=== PATIENT | male | born 1935 | race Caucasian/White ===

== ENCOUNTER 2018-09-24 08:48 | Day surgery (SDC) | payer OTHER ==
[2018-09-24] MEDS ORDERED: LIDOCAINE 2% MPF 5 ML VIAL ONE ×2 (09:36→10:58)
[2018-09-24] MEDS ORDERED: TETRACAINE HCL 0.5% 2ML OPTH ONE (09:37)
[2018-09-24] MEDS ORDERED: NA CHLORIDE 0.9% 500 ML ONE (09:37)
[2018-09-24] MEDS: CYCLOPENTOLATE 1% OPTH 2 ML ONE ×3 (09:50→10:00)
[2018-09-24] MEDS: PHENYLEPHRINE 10% OPTH 5ML ONE ×3 (09:50→10:00)
[2018-09-24] MEDS ORDERED: NS 0.9% VIAL 10 ML ONE (10:09)
[2018-09-24] MEDS: DUOVISC 1 KIT OPTH ONE ×2 (10:27→11:00)
[2018-09-24] MEDS: MOXIFLOXACIN HCL 10 DROPS/ML **OR USE OPTH ONE ×2 (10:27→11:00)
[2018-09-24] MEDS: EPINEPHRINE/PF 1 MG/ML AMP ONE ×2 (10:27→11:00)
[2018-09-24] MEDS: BALANCED SALT IRRIG PLAIN 500 ML BTL IRR ONE ×2 (10:27→11:00)
[2018-09-24] MEDS ORDERED: PROPOFOL 200 MG/20 ML VIAL IV ONE (10:58)
[2018-09-24] MEDS ORDERED: EPINEPHRINE/PF 1 MG/ML AMP ONE (11:21)
--- NOTE | 2018-09-24 11:37 | P.BOP ---
Preoperative diagnosis: Nuclear sclerotic and posterior subcapsular cataract OS Postoperative diagnosis: Same Primary procedure: Phacoemulsification with IOL OS Estimated blood loss: None Anesthesia: Local (Subtenon's infusion with anesthesia for cataract surgery) Complications: None Implants: SN60WF +18.0 Transferred to: Other (Day surgery) Condition: Good
[2018-09-24 14:43] VITALS: BP 148/87; TEMP 98.3; O2SAT 96
--- NOTE | 2018-09-24 22:29 | OP ---
Date of Procedure: 09/24/2018 Surgeon: Martita Harris MD Anesthesiologist: Geovani HilliardNNahid and Shelby Tanner C.R.N.A. Preoperative Diagnosis: Nuclear sclerotic and posterior subcapsular cataract, OS (left eye). Operation Performed: Phacoemulsification with intraocular lens implant, left eye. Anesthesia: Per cataract surgery. Complications: None. Description Of Procedure: In day surgery, the patient was prepped with Betadine and draped. A conjunctival incision was made in the inferior nasal quadrant with Favian scissors. A sub-Tenon block consisting of a 1:1 mixture of 2% Xylocaine and 0.25% bupivacaine was placed through the conjunctival incision with a blunt cannula. A Honan balloon was placed over the eye and the patient was transferred to the operating room. In the operating room, the patient was prepped and draped in the usual sterile fashion for ophthalmic surgery. A lid speculum was placed in the OS. Two paracentesis sites were made superiorly and inferiorly in the limbal cornea. Viscoat was placed in the anterior chamber and a crescent blade was used to make a corneal groove and tunnel, and a keratome was used to enter the anterior chamber. Provisc was placed in the anterior chamber and a 360-degree capsulotomy was performed with a cystitome. The lens was hydrodissected with BSS and rotated freely. The lens was removed with a stop and chop technique. A 16.03 phaco CDE was used to remove the lens. Residual cortex was removed with the irrigation and aspiration. Provisc was placed in the capsular bag. A SN60WF +18.0 lens was placed in the capsular bag without complications. Irrigation and aspiration were used to remove residual viscoelastic. The paracentesis sites were hydrated with BSS. The wound and paracentesis sites were inspected and found to be watertight. Vigamox 0.07 cc was placed intracamerally at the end of the procedure. The eye was irrigated with balanced salt solution. The eye was patched with a soft cotton patch and Jefferson metal shield. The patient was returned to day surgery in good condition. Comments: A 1:5000 epinephrine was placed in the eye prior to Viscoat. Extra Viscoat was used. Discharge Instructions: Mr. Duong is discharged to home in good condition and is to follow up with Dr. Harris in the morning. TERESA/TEODORA Voice ID: [id number] Report ID: [id number] LYDIA
== END 2018-09-24 12:10 | disposition home or self-care (01) ==
LOC: OR 08:48
PROVIDERS: ATTEND Ophthalmology Retina Specialist
PROC: 08RK3JZ Replacement of Left Lens with Synthetic Substitute, Percutaneous Approach (ICD-10-PCS; principal; 2018-09-24 10:15)
DX: H25.12 Age-related nuclear cataract, left eye (principal); H25.042 Posterior subcapsular polar age-related cataract, left eye; J44.9 Chronic obstructive pulmonary disease, unspecified; I10 Essential (primary) hypertension; E07.9 Disorder of thyroid, unspecified; Z79.82 Long term (current) use of aspirin; Z79.51 Long term (current) use of inhaled steroids; Z79.899 Other long term (current) drug therapy; Z87.891 Personal history of nicotine dependence; Z85.46 Personal history of malignant neoplasm of prostate
CPT/HCPCS: 36415; 66984; 84132; J0171 ×2; J2704; V2630

== ENCOUNTER 2022-06-05 10:37 | Emergency (ER) | payer OTHER ==
--- OUTSIDE RECORDS SUMMARY | 2022-06-05 10:44 | XMS REPORT | Continuity of Care Document ---
:1935 Author Organization [facility] t Address [address] [place] [address] Care Team Providers Name Role Phone Suzanne Gardiner MD Primary Care Physician Nurse, Adc Pob Immunization Attending Clinician Unavailable Kelby Freed DO Attending Clinician Payers Payer Name Policy Type Policy Number Effective Date Expiration Date Stevie vasquez AETSHEREEN MANAGED [id number] 2020 MEDICARE PPO-ENOC 00:00:00 Problems Condition Condition Condition Status Onset Resolution Last Treating Co mments Source Name Details Category Date Date Treatment Clinician Date Essential Essential Disease Active Uni vers hypertensi hypertensi 3-05 it y of on, benign [place] [facility] Hypothyroi Hypothyroi Disease Active Overview : Univers dism dism 3-05 Formattin ity of 00:00: g of note Medical might be Branch different from the original. 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 3-05 ity of 00:00: [place] 00 [facility] Allergies, Adverse Reactions, Alerts Allergy Allergy Status Severity Reaction(s) Onset Inactive Treating Comm ents Source Name Type Date Date Clinician Iodine Propensi Active Hives Univers ty to 3-05 ity of adverse 00:00: [place] reaction 00 Medical s Branch IODINE DRUG Active Hives Univers INGREDI 3-05 ity of 00:00: [place] 00 [facility] Social History Social Habit Start Date Stop Date Quantity Comments Source Alcohol intake 2014-12-23 2014-12-23 Current drinker Unive rsity of 00:00:00 00:00:00 of alcohol [place] [facility] (finding) [facility] History of 2008-12-23 Smoker University of tobacco use 00:00:00 [facility] Sex Assigned At [birth year] Universit y of 00:00:00 00:00:00 [facility] Smoking Status Start Date Stop Date Source Former smoker [facility] [place] [facility] Medications Ordered Filled Start Stop Current Ordering Indication Dosage Frequency Signature Comments Components Source Medication Medication Date Date Medication? Clinician (SIG) Name Name aspirin 81 Yes 81mg Take 81 mg U nivers mg chewable 3-22 by mouth ity of tablet 13:44: daily. [address] Branch vitamin Yes 1000ug Take 1,000 Un mariama B-12 3-22 mcg by ity of (VITAMIN 13:44: mouth [place] B-12) 1,000 33 daily. Medica l mcg tablet Branch cholecalcif Yes 1000U Take 1,000 Univers marylin, 3-22 Units by ity of vitamin D3, 13:44: mouth [place] (VITAMIN 33 daily. Medical D3) 1,000 Branch unit tablet LACTOBACILL Yes Take by Uni vers US 3-22 mouth ity of RHAMNOSUS 13:44: daily. [place] GG 33 Medical (CULTURELLE Branch ORAL) atorvastati Yes 10mg Take 10 mg Univers n (LIPITOR) 3-22 by mouth ity of 10 mg 13:44: daily. [place] tablet Medical Branch ERGOCALCIFE Yes 1000U Take 1,000 Univers ROL, 3-22 Units by ity of VITAMIN D2, 13:44: mouth. [facility] s (VITAMIN D 33 Medical ORAL) Branch tamsulosin Yes [id number] .4mg Take 1 Cap Univers (FLOMAX) 3-22 by mouth ity of 0.4 mg 24 00:00: daily. [place] hr capsule 00 Medical Branch levothyroxi Yes [id number] 88ug Take 1 Tab Univers ne 3-22 by mouth ity of (SYNTHROID) 00:00: every [place] 88 mcg 00 morning. Medical tablet Branch metoprolol Yes [id number] 25mg Take 1 Tab Univers succinate 1-21 by mouth ity of XL (TOPROL 00:00: daily. [place] XL) 25 mg 00 Medical 24 hr Branch tablet cyclobenzap Yes [id number] 5mg Take 1 Tab Univers rine 1-21 by mouth 3 ity of (FLEXERIL) 00:00: (three) [place] 5 mg tablet 00 times Medical daily as Branch needed for Muscle Spasms. ibuprofen Yes 600mg Take 1 Tab U nivers (MOTRIN) 1-13 by mouth ity of 600 mg 00:00: every 8 [place] tablet 00 (eight) Medical hours as Branch needed for Pain (scale 4-6) or Pain unrelieved by Tylenol. Immunizations Ordered Filled Immunization Date Status Comments Sourc e Immunization Name Name SARS-COV-2 COVID-19 2021-07-14 Completed Unive rsity of PFIZER VACCINE 00:00:00 [facility] SARS-COV-2 COVID-19 2020-12-29 Completed Unive rsity of PFIZER VACCINE 00:00:00 [facility] SARS-COV-2 COVID-19 2020-12-08 Completed Unive rsity of PFIZER VACCINE 00:00:00 [facility] Procedures Procedure Date / Time Performed Performing Clinician Sourc e SARS-COV-2 COVID-19 2021-07-14 18:56:33 Doctor Unassigned, No Un iversity of [place] VACCINE,0.3ML,IM Name Medical Branch (PFIZER) Encounters Start End Encounter Admission Attending Care Care Encounter Source Date/Time Date/Time Type Type Clinicians Facility Department ID 2021-11-18 Outpatient [facility] MARY ALICE [id number] 17:57:54 Andtravis ayoub 2021-07-14 2021-07-[address] [facility] [id number] Univers 13:30:00 13:30:00 ity of [facility] 2021-07-14 2021-07-14 Imm/Inj Nurse, Adc Pob Immunization [facility] [id number] [facility] 13:18:54 13:28:54 Visit Kelby Freed [id number] ity [place] [id number] Wojciech chilel Professio [phone] Ar dical nal [address] Branch Building Results This patient has no known results.
[2022-06-05] MEDS ORDERED: LIDOCAINE 4% PATCH ONE (11:29)
[2022-06-05] MEDS ORDERED: ASPIRIN 81 MG CHEWABLE TABLET ONE (11:29)
[2022-06-05] MEDS ORDERED: MORPHINE 2 MG/ML SYR ONE (11:29)
[2022-06-05 12:07] LABS: Albumin 3.3 g/dL (3.4-5.0); Bilirubin Direct 0.3 mg/dL (0-0.2); Bilirubin Total 0.9 mg/dL (0.2-1.0); Magnesium 2.2 mg/dL (1.8-2.4); Potassium 4.3 mmol/L (3.5-5.1); Protein, Total 6.8 g/dL (6.4-8.2)
[2022-06-05 12:08] LABS: Absolute Lymphocytes (CBC) 1.2 K/uL (0.7-4.9); Hematocrit 40.5 % (39.6-49.0); Lymphocytes % 12.5 % (15.3-44.8); MPV 7.7 fL (7.6-11.3); RBC Red Blood Cell Count 3.89 M/uL (4.33-5.43)
--- NOTE | 2022-06-05 12:52 | RAD REPORT ---
EXAM DESCRIPTION: RAD - Chest Single View - 06/05/2022 11:54 am CLINICAL HISTORY: CHEST PAIN COMPARISON: Two view chest December 2016 TECHNIQUE: AP portable chest image was obtained 06/05/2022 11:54 am . FINDINGS: Lung volumes are low. No peripheral mass or consolidation. Interstitial pattern is accentu ated by under penetrated portable technique and shallow inspiration. Significant failure or volume ov erload are not suspected. Trachea is midline. Right hemidiaphragm elevation and eventration noted. Heart and vasculature are no rmal. No measurable pleural effusion and no pneumothorax. No acute bony abnormality seen. No acute ao rtic findings suspected. IMPRESSION: Limited portable study without acute cardiopulmonary process.
[2022-06-05] MEDS ORDERED: METHOCARBAMOL 1,000 MG/10 ML VIAL IV ONE (13:38)
[2022-06-05] MEDS ORDERED: NA CHLORIDE 0.9% 100 ML ONE (13:38)
--- NOTE | 2022-06-05 15:18 | ER ---
Nurse's Notes [facility] Name: Salazar Duong Age: 86 yrs Sex: Male : 1935 Arrival Date: 06/05/2022 Time: 10:39 Bed 13 Private MD: Ilya Renee T Diagnosis: Chest wall pain Presentation: 06/05 10:47 Chief complaint: Pt's daughter states "he was trying to open a six pack of water trying aa5 to rip open that plastic off and then the bottles started falling and he did another movement to try to catch them and right after that he started having chest pain". Pt states "the chest pain has been getting worse and that incident happened on Monday". Coronavirus screen: At this time, the client does not indicate any symptoms associated with coronavirus-19. Ebola Screen: No symptoms or risks identified at this time. Initial Sepsis Screen: Does the patient meet any 2 criteria? No. Patient's initial sepsis screen is negative. Does the patient have a suspected source of infection? No. Patient's initial sepsis screen is negative. Risk Assessment: Do you want to hurt yourself or someone else? Patient reports no desire to harm self or others. Onset of symptoms was May 2022. 10:47 Acuity: ERMELINDA 3 aa5 10:47 Method Of Arrival: Ambulatory aa5 Triage Assessment: 13:12 General: Appears in no apparent distress. uncomfortable, well groomed, Behavior is bm7 anxious. Pain: Complains of pain in mid-sternal area Pain radiates to back. EENT: No deficits noted. No signs and/or symptoms were reported regarding the EENT system. Neuro: No deficits noted. Cardiovascular: Reports chest pain, shortness of breath, Chest pain is described as mild, radiates back. Respiratory: Reports shortness of breath at rest on exertion Airway is patent Respiratory effort is even, using tripod position, Respiratory pattern is tachypnea Breath sounds are clear bilaterally. GI: No deficits noted. No signs and/or symptoms were reported involving the gastrointestinal system. : No deficits noted. No signs and/or symptoms were reported regarding the genitourinary system. Derm: No deficits noted. No signs and/or symptoms reported regarding the dermatologic system. Musculoskeletal: No deficits noted. No signs and/or symptoms reported regarding the musculoskeletal system. Historical: - Allergies: 10:47 IV contrast (Hives); aa5 10:50 tramadol; aa5 - PMHx: 10:47 BPH; Hypertension; Hypothyroidism; Prostate Cancer; aa5 10:50 COPD; aa5 10:50 Osteoporosis; aa5 - Immunization history:: Adult Immunizations unknown. - Social history:: Smoking status: Patient denies any tobacco usage or history of. Screenin:17 Abuse screen: Denies threats or abuse. Nutritional screening: No deficits noted. bm7 Tuberculosis screening: No symptoms or risk factors identified. Fall Risk None identified. Assessment: 12:17 Reassessment: Patient and/or family updated on plan of care and expected duration. Pain bm7 level reassessed. Patient is alert, oriented x 3, equal unlabored respirations, skin warm/dry/pink. 14:01 Reassessment: Patient and/or family updated on plan of care and expected duration. Pain bm7 level reassessed. Patient is alert, oriented x 3, equal unlabored respirations, skin warm/dry/pink. 14:59 Reassessment: Patient and/or family updated on plan of care and expected duration. Pain bm7 level reassessed. Patient is alert, oriented x 3, equal unlabored respirations, skin warm/dry/pink. Vital Signs: 10:47 BP 163 / 102; Pulse 65; Resp 20 S; Temp 98.1(TE); Pulse Ox 95% on R/A; Weight 68.04 kg aa5 (R); Height 5 ft. 6 in. (167.64 cm) (R); 11:35 BP 152 / 83 RA Sitting (auto/pedi); Pulse 64; Resp 28; Pulse Ox 99% on R/A; Pain 5/10; bm7 11:35 BP 157 / 78 LA Sitting (auto/pedi); Pulse 64 LA; bm7 12:18 BP 161 / 77; Pulse 66; Resp 20; Pulse Ox 97% on R/A; Pain 3/10; bm7 12:43 BP 162 / 81; Pulse 65; Resp 20; Pulse Ox 97% ; jl7 13:20 BP 157 / 81; Pulse 60; Resp 20; Pulse Ox 97% on R/A; bm7 14:22 BP 160 / 76; Pulse 60; Resp 18; Pulse Ox 99% on R/A; Pain 4/10; bm7 15:44 BP 169 / 80; Pulse 16; Resp 22; Temp 98.2(TE); Pulse Ox 98% on R/A; Pain 2/10; bm7 10:47 Body Mass Index 24.21 (68.04 kg, 167.64 cm) aa5 ED Course: 10:39 Patient arrived in ED. as 10:41 Ilya Renee MD is Private Physician. as 10:43 Tierra Elder MD is Attending Physician. sd2 10:47 Arm band placed on. aa5 10:49 Triage completed. aa5 11:12 Daisy Colmenares, RN is Primary Nurse. bm7 11:32 Initial lab(s) drawn, by me, sent to lab. Inserted saline lock: 22 gauge in right aa5 forearm, using aseptic technique. Blood collected. 11:56 XRAY Chest (1 view) In Process Unspecified. EDMS 12:17 No apparent distress. Resting quietly. Awaiting lab results. bm7 12:17 Patient has correct armband on for positive identification. Placed in gown. Bed in low bm7 position. Call light in reach. Side rails up X2. Adult w/ patient. Client placed on continuous cardiac and pulse oximetry monitoring. NIBP monitoring applied. clinical research monitor on. Warm blanket given. 12:17 Missed attempt(s): 22 gauge in right antecubital area. Bleeding controlled, band aid bm7 applied, catheter tip intact. 14:11 Assisted to bathroom. bm7 14:22 Repeat lab(s) drawn. by me, sent to lab. X-ray(s) taken. bm7 15:16 Ilya Renee MD is Referral Physician. sd2 15:44 No provider procedures requiring assistance completed. IV discontinued, intact, bm7 bleeding controlled, No redness/swelling at site. Pressure dressing applied. Administered Medications: 11:34 Drug: Aspirin Chewable Tablet 243 mg Route: PO; bm7 13:14 Follow up: Response: No adverse reaction bm7 11:34 Drug: morphine 2 mg Route: IVP; Infused Over: 4 mins; Site: right wrist; bm7 13:14 Follow up: Response: Pain is decreased bm7 13:37 Drug: Methocarbamol 500 mg Route: IVPB; Infused Over: 30 mins; Site: right antecubital; bm7 14:11 Follow up: IV Status: Completed infusion bm7 14:11 Drug: Lidoderm Patch 5 % (700 mg/patch) 1 patches {Note: upper back .} Route: Topical; bm7 Site: affected area; Medication: 12:17 VIS not applicable for this client. bm7 Outcome: 15:16 Discharge ordered by . sd2 15:44 Discharged to home ambulatory, with family. bm7 15:44 Condition: improved 15:44 Discharge instructions given to patient, family, Instructed on discharge instructions, follow up and referral plans. medication usage, Demonstrated understanding of instructions, follow-up care, medications, Prescriptions given X 2. 15:47 Patient left the ED. bm7 Signatures: Dispatcher [employer] EDMS Zahraa Francisco Audri, RN RN aa5 Silvestre Stahl RN RN [id number] Daisy Colmenares, AMNA RN bm7 Tierra Elder MD MD sd2
--- NOTE | 2022-06-05 15:18 | EDPHYS ---
Physician Documentation [facility] Name: Salazar Duong Age: 86 yrs Sex: Male : 1935 Arrival Date: 06/05/2022 Time: 10:39 Bed 13 Private MD: Ilya Renee T ED Physician Tierra Elder HPI: 06/05 10:58 This 86 yrs old Male presents to ER via Ambulatory with complaints of sternum pain, sd2 InQuicker 1030. 10:58 86-year-old male with a history of COPD and atrial fibrillation presents with chief sd2 complaint of chest wall pain that started on Monday. He reports that he was attempting to open a plastic on a beverage container and then it started to fall so he reached down to try to grab it and he immediately started having chest pain thereafter. He reports it has continued and progressively worsened since then. He reports it is painful with movement and especially when he is trying to push himself up to stand up. He has not taken any medications for this at home to help with the symptoms. He is on a daily baby aspirin which he is already taken today. He denies any prior cardiac history aside from his atrial fibrillation which has been well controlled. He denies any associated shortness of breath worse than his normal baseline COPD. He denies any nausea, vomiting or diaphoresis. No recent travel or leg edema.. Historical: - Allergies: 10:47 IV contrast (Hives); aa5 10:50 tramadol; aa5 - PMHx: 10:47 BPH; Hypertension; Hypothyroidism; Prostate Cancer; aa5 10:50 COPD; aa5 10:50 Osteoporosis; aa5 - Immunization history:: Adult Immunizations unknown. - Social history:: Smoking status: Patient denies any tobacco usage or history of. ROS: 10:58 Constitutional: Negative for fever, chills, and weight loss, Eyes: Negative for injury, sd2 pain, redness, and discharge, Respiratory: Negative for shortness of breath, cough, wheezing. Abdomen/GI: Negative for abdominal pain, nausea, vomiting, diarrhea. MS/Extremity: Negative for injury and deformity, Skin: Negative for injury, rash, and discoloration, Neuro: Negative for headache, numbness and tingling. 10:58 Cardiovascular: Positive for chest pain, Negative for edema, orthopnea, palpitations. Exam: 10:58 Constitutional: This is a well developed, well nourished patient who is awake, alert, sd2 and in no acute distress. Head/Face: Normocephalic, atraumatic. Eyes: EOMI, normal conjunctiva bilaterally Chest/axilla: Normal chest wall appearance and motion. Nontender with no deformity. Cardiovascular: Regular rate and rhythm with a normal S1 and S2. No gallops, murmurs, or rubs. 2+ distal pulses. Reproducible midsternal and R anterior chest wall TTP without crepitus. Respiratory: Lungs have equal breath sounds bilaterally, clear to auscultation and percussion. No rales, rhonchi or wheezes noted. No increased work of breathing, no retractions or nasal flaring. Abdomen/GI: Soft, non-tender, with normal bowel sounds. No guarding or rebound. No evidence of tenderness throughout. Skin: Warm, dry with normal turgor. Normal color with no rashes, no lesions, and no evidence of cellulitis. MS/ Extremity: Pulses equal, no cyanosis. Neurovascular intact. Full, normal range of motion. Ambulatory without difficulty. Psych: Awake, alert, with orientation to person, place and time. Behavior, mood, and affect are within normal limits. 11:31 ECG was reviewed by the Attending Physician. NSR, rate 63, no STEMI criteria, no ST-T sd2 wave changes, PRWP Vital Signs: 10:47 BP 163 / 102; Pulse 65; Resp 20 S; Temp 98.1(TE); Pulse Ox 95% on R/A; Weight 68.04 kg aa5 (R); Height 5 ft. 6 in. (167.64 cm) (R); 11:35 BP 152 / 83 RA Sitting (auto/pedi); Pulse 64; Resp 28; Pulse Ox 99% on R/A; Pain 5/10; bm7 11:35 BP 157 / 78 LA Sitting (auto/pedi); Pulse 64 LA; bm7 12:18 BP 161 / 77; Pulse 66; Resp 20; Pulse Ox 97% on R/A; Pain 3/10; bm7 12:43 BP 162 / 81; Pulse 65; Resp 20; Pulse Ox 97% ; jl7 13:20 BP 157 / 81; Pulse 60; Resp 20; Pulse Ox 97% on R/A; bm7 14:22 BP 160 / 76; Pulse 60; Resp 18; Pulse Ox 99% on R/A; Pain 4/10; bm7 15:44 BP 169 / 80; Pulse 16; Resp 22; Temp 98.2(TE); Pulse Ox 98% on R/A; Pain 2/10; bm7 10:47 Body Mass Index 24.21 (68.04 kg, 167.64 cm) aa5 MDM: 10:51 Patient medically screened. sd2 10:58 Differential Diagnosis Differential diagnosis includes but is not limited to: ACS, sd2 DVT/PE, pneumothorax, dissection, musculoskeletal, anxiety, anemia, electrolyte abnormality, pneumonia, CHF, COPD among others. Data reviewed: vital signs, nurses notes. 15:14 Data reviewed: lab test result(s), EKG, radiologic studies. Counseling: I had a sd2 detailed discussion with the patient and/or guardian regarding: the historical points, exam findings, and any diagnostic results supporting the discharge/admit diagnosis, lab results, radiology results, the need for outpatient follow up, to return to the emergency department if symptoms worsen or persist or if there are any questions or concerns that arise at home. Medical screen evaluation completed. EMTALA emergency medical condition absent. ED course: Labs and imaging reviewed. Delta troponin negative. EKG with no ischemic changes. VSS. BNP mildly elevated. Pt with no SOB, hypoxia or respiratory distress. Pt is feeling improved after treatment in ED and presentation is most consistent with musculoskeletal etiology or costochondritis. Discussed continued supportive care for symptoms and need for follow up with PCP this week. Pt and daughter at bedside verbalize understanding of discharge plan and strict return precautions.. 06/05 11:02 Order name: Basic Metabolic Panel; Complete Time: 12:20 sd2 06/05 11:02 Order name: CBC with Diff; Complete Time: 12:20 sd2 06/05 11:02 Order name: LFT's; Complete Time: 12:20 sd2 06/05 11:02 Order name: Magnesium; Complete Time: 12:20 sd2 06/05 11:02 Order name: NT PRO-BNP; Complete Time: 12:20 sd2 06/05 11:02 Order name: Troponin HS; Complete Time: 12:20 sd2 06/05 11:02 Order name: XRAY Chest (1 view); Complete Time: 12:53 06/05 11:02 Order name: EKG; Complete Time: 11:02 06/05 11:02 Order name: Cardiac monitoring; Complete Time: 11:13 06/05 13:24 Order name: Troponin High Sensitivity; Complete Time: 15:13 06/05 11:02 Order name: EKG - Nurse/Tech; Complete Time: 11:13 06/05 11:02 Order name: IV Saline Lock; Complete Time: 11:13 06/05 11:02 Order name: Labs collected and sent; Complete Time: 11:14 06/05 11:02 Order name: O2 Per Protocol; Complete Time: 11:14 06/05 11:02 Order name: O2 Sat Monitoring; Complete Time: 11:14 Administered Medications: 11:34 Drug: Aspirin Chewable Tablet 243 mg Route: PO; bm7 13:14 Follow up: Response: No adverse reaction bm7 11:34 Drug: morphine 2 mg Route: IVP; Infused Over: 4 mins; Site: right wrist; bm7 13:14 Follow up: Response: Pain is decreased bm7 13:37 Drug: Methocarbamol 500 mg Route: IVPB; Infused Over: 30 mins; Site: right antecubital; bm7 14:11 Follow up: IV Status: Completed infusion bm7 14:11 Drug: Lidoderm Patch 5 % (700 mg/patch) 1 patches {Note: upper back .} Route: Topical; bm7 Site: affected area; Disposition Summary: 06/05/22 15:16 Discharge Ordered Location: Home sd2 Problem: new sd2 Symptoms: have improved sd2 Condition: Stable sd2 Diagnosis - Chest wall pain sd2 Followup: sd2 - With: Ilya Renee MD - When: 2 - 3 days - Reason: Recheck today's complaints, Continuance of care, Re-evaluation by your physician Followup: sd2 - With: Emergency Department - When: As needed - Reason: Discharge Instructions: - Discharge Summary Sheet sd2 - Nonspecific Chest Pain, Adult sd2 - Chest Wall Pain sd2 Forms: - Medication Reconciliation Form sd2 - Thank You Letter sd2 - Antibiotic Education sd2 - Prescription Opioid Use sd2 Prescriptions: - Naprosyn 500 mg Oral Tablet - take 1 tablet by ORAL route 2 times per day take with food; 20 tablet; Refills: sd2 0, Product Selection Permitted - methocarbamol 500 mg Oral Tablet - take 1 tablet by ORAL route every 8 hours As needed for muscle spasm; 15 sd2 tablet; Refills: 0, Product Selection Permitted Signatures: Dispatcher [employer] Anette Gracia RN RN aa5 Daisy Colmenares RN RN bm7 Tierra Elder MD MD sd2
[2022-06-05 16:41] VITALS: BP 169/80; TEMP 98.2; O2SAT 98
--- NOTE | 2022-06-06 08:09 | EKG ---
Test Date: 2022-06-05 Test Time: 11:09:02 Health Professor: OLEGARIO MEASUREMENT RESULTS: Intervals: Rate: 63 WA: 188 QRSD: 116 QT: 404 QTc: 413 [place]: P: 78 WA: 188 QRS: -53 T: 65 INTERPRETIVE STATEMENTS: Sinus rhythm with marked sinus arrhythmia Left anterior fascicular block Left ventricular hypertrophy with QRS widening Cannot rule out Septal infarct, age undetermined Abnormal ECG Compared to ECG 09/21/2016 10:20:31 Left anterior fascicular block now present Left ventricular hypertrophy now present Left-axis deviation no longer present Myocardial infarct finding still present Electronically Signed On 06-06-22 08:06:29 CDT by Michael Saravia
== END 2022-06-05 15:47 | disposition home or self-care (01) ==
LOC: ER 10:37
DX: R07.89 Other chest pain (principal); J44.9 Chronic obstructive pulmonary disease, unspecified; I10 Essential (primary) hypertension; E03.9 Hypothyroidism, unspecified; Z88.5 Allergy status to narcotic agent; Z91.041 Radiographic dye allergy status
CPT/HCPCS: 96365; 93005 ×2; 85025; 80048; 36415; 83735; 80076; 84484 ×2; 83880; 71045; 96375; 99284; J2001; J2270; J2800

== ENCOUNTER 2022-06-17 17:09 | Emergency (ER) | payer OTHER ==
--- OUTSIDE RECORDS SUMMARY | 2022-06-17 17:12 | XMS REPORT | Continuity of Care Document ---
:1935 Author Organization [facility] t Address [address] [place] [address] Care Team Providers Name Role Phone Suzanne Gardiner MD Primary Care Physician Nurse, Adc Pob Immunization Attending Clinician Unavailable Kelby Freed DO Attending Clinician Payers Payer Name Policy Type Policy Number Effective Date Expiration Date Stevie vasquez [employer] MANAGED [id number] 2020 MEDICARE PPO-ENOC 00:00:00 Problems Condition Condition Condition Status Onset Resolution Last Treating Co mments Source Name Details Category Date Date Treatment Clinician Date Essential Essential Disease Active Uni vers hypertensi hypertensi 3-05 [place] [facility] Hypothyroi Hypothyroi Disease Active Overview : Univers dism dism 3-05 Formattin ity of 00:00: g of this note Medical might be Branch different from the original. 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 Plantar Plantar Disease Active Univers fasciitis [...] Hives Univers INGREDI 3-05 ity of 00:00: [place] 00 Medical Branch Social History Social Habit Start Date Stop Date Quantity Comments Source Alcohol intake 2014-12-23 2014-12-23 Current drinker Unive rsity of 00:00:00 00:00:00 of alcohol [place] Medical (finding) Branch History of 2008-12-23 Smoker University of tobacco use 00:00:00 [facility] Sex Assigned At [birth year] Universit y of 00:00:00 00:00:00 [facility] Smoking Status Start Date Stop Date Source Former smoker [facility] Medications Ordered Filled Start Stop Current Ordering Indication Dosage Frequency Signature Comments Components Source Medication Medication Date Date Medication? Clinician (SIG) Name Name aspirin 81 Yes 81mg Take 81 mg U nivers mg chewable 3-22 by mouth ity of tablet 13:44: daily. [address] Branch vitamin Yes 1000ug Take 1,000 Un mariama B-12 3-22 mcg by ity of (VITAMIN 13:44: mouth [place] B-12) 1,000 33 daily. Medica l mcg tablet Branch cholecalcif Yes 1000U Take 1,000 Univers marylin, 3-22 Units by ity of vitamin D3, 13:44: mouth [place] (VITAMIN 33 daily. Medical D3) 1,000 Branch unit tablet LACTOBACILL Yes Take by Uni vers US 3-22 mouth ity of RHAMNOSUS 13:44: daily. [place] GG 33 Medical (CULTURELLE Branch ORAL) atorvastati Yes 10mg Take 10 mg Univers n (LIPITOR) 3-22 by mouth ity of 10 mg 13:44: daily. [place] tablet Medical Branch ERGOCALCIFE Yes 1000U Take 1,000 Univers ROL, 3-22 Units by ity of VITAMIN D2, 13:44: mouth. [place] s (VITAMIN D 33 Medical ORAL) Branch tamsulosin Yes [id number] .4mg Take 1 Cap Univers (FLOMAX) 3-22 by mouth ity of 0.4 mg 24 00:00: daily. [place] hr capsule 00 Medical Branch levothyroxi Yes [id number] 88ug Take 1 Tab Univers ne 3-22 by mouth ity of (SYNTHROID) 00:00: every [place] 88 mcg 00 morning. Medical tablet Branch metoprolol Yes [id number] 25mg Take 1 Tab Univers succinate 1-21 by mouth ity of XL (TOPROL 00:00: daily. [place] XL) 25 mg 00 Medical 24 hr Branch tablet cyclobenzap Yes [id number] 5mg Take 1 Tab Univers rine 1-21 [...] Immunizations Ordered Filled Immunization Date Status Comments Sour e Immunization Name Name SARS-COV-2 COVID-19 2021-07-14 Completed Unive rsity of PFIZER VACCINE 00:00:00 [facility] SARS-COV-2 COVID-19 2020-12-29 Completed Unive rsity of PFIZER VACCINE 00:00:00 [facility] SARS-COV-2 COVID-19 2020-12-08 Completed Unive rsity of PFIZER VACCINE 00:00:00 [facility] Procedures Procedure Date / Time Performed Performing Clinician Sour e SARS-COV-2 COVID-19 2021-07-14 18:56:33 Doctor Unassigned, No Un iversity of [place] VACCINE,0.3ML,IM Name Medical Branch (PFIZER) Encounters Start End Encounter Admission Attending Care Care Encounter Source Date/Time Date/Time Type Type Clinicians Facility Department ID 2021-11-18 Outpatient MARY ALICE WHEAT [id number] 17:57:54 Anderso n 2021-07-14 2021-07-14 Outpatient [facility] [id number] Univers 13:30:00 13:30:00 ity of [facility] 2021-07-14 2021-07-14 Imm/Inj Nurse, Adc Pob Immunization [facility] [id number] Univers 13:18:54 13:28:54 Visit Kelby Freed [id number] ity [place] [id number] W[facility]ch chilel Professio [phone] Al dical nal [address] Branch Building Results This patient has no known results.
[2022-06-17] MEDS ORDERED: MORPHINE 4 MG/ML SYR ONE (17:55)
[2022-06-17] MEDS ORDERED: ONDANSETRON 4 MG/2 ML VIAL ONE (17:55)
[2022-06-17] MEDS ORDERED: HYDROMORPHONE HCL 1 MG/ML INJ ONE ×2 (18:04→19:08)
[2022-06-17 18:18] LABS: Absolute Lymphocytes (CBC) 1.5 K/uL (0.7-4.9); Hematocrit 39.9 % (39.6-49.0); Lymphocytes % 9.2 % (15.3-44.8); MCV 104.4 fL (80-100); MPV 7.1 fL (7.6-11.3); RBC Red Blood Cell Count 3.82 M/uL (4.33-5.43)
[2022-06-17 18:29] LABS: Protime INR 1.08
[2022-06-17 18:33] LABS: Potassium 4.2 mmol/L (3.5-5.1)
--- NOTE | 2022-06-17 19:27 | RAD REPORT ---
EXAM DESCRIPTION: RAD - Shoulder Left 2 View - 06/17/2022 6:59 pm CLINICAL HISTORY: PAIN COMPARISON: No comparisons FINDINGS: Mildly impacted proximal left humerus fracture is seen. A dislocation not evident. The bon es are diffusely demineralized.
--- NOTE | 2022-06-17 19:29 | RAD REPORT ---
EXAM DESCRIPTION: RAD - Hip Left 2 View - 06/17/2022 6:59 pm CLINICAL HISTORY: PAIN COMPARISON: Pelvis Wo Cont dated 06/17/2022 FINDINGS: Diffuse osteopenia is noted. No hip fracture seen. Pubic ramus fracture affecting the supe rior pubic ramus on the left is suspected.
--- NOTE | 2022-06-17 19:45 | RAD REPORT ---
EXAM DESCRIPTION: CT - Pelvis Wo Cont - 06/17/2022 7:21 pm CLINICAL HISTORY: fall, hip pain Trauma, fall, hip pain COMPARISON: Hip Left 2 View dated 06/17/2022 TECHNIQUE: All CT scans are performed using dose optimization technique as appropriate and may inclu de automated exposure control or mA/KV adjustment according to patient size. FINDINGS: Mildly comminuted fractures seen inferior pubic ramus on the left. Moderately displaced fr acture is present anterior left superior pubic ramus near the symphysis. Fracture is also present inv olving the anterior aspect of the right pubic symphysis as well as a nondisplaced fracture of the inf erior pubic ramus on the right. There is moderate the anterior pelvic hematoma seen. Multiple stones are present in the urinary bladd er. Both the hip joints are intact. Fracture of the left sacral ala is present. IMPRESSION: Fractures of the left and right superior and inferior pubic rami is present. Left-sided fractures are relatively more displaced on the right. Moderate anterior pelvic hematoma. Fracture of the left sacral ala is present.
--- NOTE | 2022-06-17 21:23 | EDPHYS ---
Physician Documentation [facility] Name: Salazar Duong Age: 86 yrs Sex: Male : 1935 Arrival Date: 06/17/2022 Time: 17:20 Bed 2 Private MD: ED Physician Martin Benítez HPI: 06/17 22:09 This 86 yrs old Male presents to ER via EMS with complaints of Fall Injury. kb 22:09 Details of fall: The patient fell from an upright position, while walking. Onset: The kb symptoms/episode began/occurred just prior to arrival. Associated injuries: The patient sustained left hip, decreased range of motion, painful injury, anterior aspect of left shoulder, decreased range of motion, deformity, painful injury. Severity of symptoms: At their worst the symptoms were moderate, in the emergency department the symptoms are unchanged. The patient has not experienced similar symptoms in the past. The patient has not recently seen a physician. Patient reports he was walking out of his door when it swung back and knocked him down. Reports pain to left shoulder and left hip.. Historical: - Allergies: 17:35 IV contrast (Hives); ld1 17:35 tramadol; ld1 - PMHx: 17:35 BPH; COPD; Hypertension; Hypothyroidism; Osteoporosis; Prostate Cancer; ld1 - Immunization history:: Adult Immunizations up to date, Client reports having NOT received the Covid vaccine. - Social history:: Smoking status: Patient denies any tobacco usage or history of. Patient/guardian denies using alcohol. ROS: 22:07 Constitutional: Negative for fever, chills, and weight loss. kb 22:07 MS/extremity: Positive for injury or acute deformity, decreased range of motion, pain, swelling, tenderness, of the left hip and anterior aspect of left shoulder. 22:07 All other systems are negative. Exam: 22:07 Constitutional: This is a well developed, well nourished patient who is awake, alert, kb and in no acute distress. Head/Face: Normocephalic, atraumatic. ENT: Moist Mucous membranes Cardiovascular: Regular rate and rhythm with a normal S1 and S2. No gallops, murmurs, or rubs. No pulse deficits. Respiratory: Respirations even and unlabored. No increased work of breathing. Talking in full sentences Abdomen/GI: Soft, non-tender. No distention 22:07 Musculoskeletal/extremity: Extremities: grossly normal except: noted in the left hip: decreased ROM, pain, tenderness, noted in the anterior aspect of left shoulder: decreased ROM, pain, swelling, tenderness, ROM: limited active range of motion due to pain, in the left hip and anterior aspect of left shoulder, Circulation is intact in all extremities. Sensation intact. Weight bearing: is unable to bear weight. 22:07 Skin: injury, skin tear to right tricep. Vital Signs: 17:33 BP 148 / 77; Pulse 73; Resp 18; Temp 97.6(O); Pulse Ox 95% on R/A; Pain 9/10; ld1 17:48 BP 148 / 77; Pulse 76; Resp 18; Pulse Ox 96% on R/A; Pain 9/10; ld1 18:53 BP 140 / 78; Pulse 86; Resp 18; Pulse Ox 100% on R/A; Pain 9/10; ld1 19:49 BP 127 / 60; Pulse 94; Resp 24; Pulse Ox 96% on 2 lpm NC; ll3 21:37 BP 105 / 71; Pulse 102; Resp 18; Pulse Ox 93% on 2 lpm NC; ll3 22:32 BP 101 / 73; Pulse 96; Resp 17; Pulse Ox 96% on 2 lpm NC; ll3 23:23 BP 122 / 69; Pulse 93; Resp 20; Pulse Ox 96% on 2 lpm NC; ll3 06/18 00:30 BP 107 / 93; Pulse 88; Resp 15; Pulse Ox 96% on 2 lpm NC; ll3 MDM: 06/17 17:33 Patient medically screened. kb 21:21 Data reviewed: vital signs, nurses notes. Data interpreted: Pulse oximetry: on room air kb is 96 %. Interpretation: normal. Counseling: I had a detailed discussion with the patient and/or guardian regarding: the historical points, exam findings, and any diagnostic results supporting the discharge/admit diagnosis, radiology results, the need to transfer to another facility, [facility] does not immediately have the required specialist. ED course: Dr Redd accepts pt for transfer to [facility].. 06/17 17:38 Order name: CBC with Diff; Complete Time: 18:32 kb 06/17 17:38 Order name: Basic Metabolic Panel; Complete Time: 18:35 kb 06/17 17:38 Order name: Shoulder Left (2 View) XRAY; Complete Time: 19:36 kb 06/17 17:38 Order name: Protime (+inr); Complete Time: 18:32 kb 06/17 17:38 Order name: Ptt, Activated; Complete Time: 18:32 kb 06/17 20:43 Order name: SARS RAPID; Complete Time: 21:54 ll3 06/17 17:38 Order name: Hip Left 2 View XRAY; Complete Time: 19:36 kb 06/17 17:38 Order name: IV Start; Complete Time: 17:48 kb 06/17 18:59 Order name: CT Pelvis wo Cont; Complete Time: 19:48 kb Administered Medications: 17:48 Drug: morphine 4 mg Route: IVP; Infused Over: 4 mins; Site: right antecubital; ld1 17:57 Follow up: Response: No adverse reaction; Pain is unchanged, physician notified ld1 17:57 Follow up: Response: RASS: Alert and Calm (0) ld1 17:48 Drug: Zofran (Ondansetron) 4 mg Route: IVP; Site: right antecubital; ld1 17:57 Follow up: Response: No adverse reaction ld1 17:57 Drug: Dilaudid (HYDROmorphone) 1 mg Route: IVP; Site: right wrist; ld1 19:15 Follow up: Response: No adverse reaction; RASS: Alert and Calm (0) ld1 19:01 Drug: Dilaudid (HYDROmorphone) 1 mg Route: IVP; Site: right antecubital; ld1 19:15 Follow up: Response: No adverse reaction; RASS: Drowsy (-1) ld1 06/18 01:26 Drug: Dilaudid (HYDROmorphone) 1 mg Route: IVP; Site: right wrist; ll3 01:37 Follow up: Response: No adverse reaction ll3 Disposition Summary: 06/17/22 21:23 Transfer Ordered Transfer Location: [facility] kb Reason: Higher level of care kb Condition: Stable kb Problem: new kb Symptoms: are unchanged kb Accepting Physician: Dr Redd(06/18/22 01:37) ll3 Diagnosis - Impacted proximal humerus fracture - left kb - Left and right superior and inferior pubic rami fractures kb - Left sacral ala fracture kb Forms: - Medication Reconciliation Form kb - SBAR form kb Addendum: 06/21/2022 16:11 Co-signature as Attending Physician, Martin Benítez MD. r n Signatures: Dispatcher [employer] EDMag Snow, TMH TEACHER-C TMH TEACHER-Ckb Martin Benítez MD MD rn Dibbern, Lauren RN RN ld1 Leda Cota RN RN ll3 Corrections: (The following items were deleted from the chart) 06/18 01:37 06/17 21:23 Dr Tramaine garrett ll3
--- NOTE | 2022-06-17 21:23 | ER ---
Nurse's Notes [facility] Name: Salazar Duong Age: 86 yrs Sex: Male : 1935 Arrival Date: 06/17/2022 Time: 17:20 Bed 2 Private MD: Diagnosis: Impacted proximal humerus fracture - left;Left and right superior and inferior pubic rami fractures;Left sacral ala fracture Presentation: 06/17 17:33 Chief complaint: EMS states: toned out to pt home for fall. Pt reports door slamming ld1 into him and knocking him on the ground. Upon arrival to home EMS reports obvious deformity to left shoulder and left hip. Laceration to right forearm. Pt c/o pain in left shoulder and hip. Coronavirus screen: At this time, the client does not indicate any symptoms associated with coronavirus-19. Ebola Screen: No symptoms or risks identified at this time. Initial Sepsis Screen: Does the patient meet any 2 criteria? No. Patient's initial sepsis screen is negative. Does the patient have a suspected source of infection? No. Patient's initial sepsis screen is negative. Initial Sepsis Screen: Does the patient meet any 2 criteria?. Risk Assessment: Do you want to hurt yourself or someone else? Patient reports no desire to harm self or others. Onset of symptoms was June 17, 2022. 17:33 Method Of Arrival: EMS: [facility] ld1 17:33 Acuity: ERMELINDA 3 ld1 Triage Assessment: 17:35 General: Appears in no apparent distress. uncomfortable, Behavior is calm, cooperative, ld1 appropriate for age. Pain: Complains of pain in left arm and left leg Pain does not radiate. Pain currently is 9 out of 10 on a pain scale. Quality of pain is described as throbbing, Pain began suddenly, Is continuous. EENT: No signs and/or symptoms were reported regarding the EENT system. Neuro: Level of Consciousness is awake, alert, obeys commands, Oriented to person, place, time, situation. Cardiovascular: Capillary refill < 3 seconds Patient's skin is warm and dry. Respiratory: Airway is patent Respiratory effort is even, unlabored. GI: Abdomen is flat, non-distended. : No signs and/or symptoms were reported regarding the genitourinary system. Derm: No signs and/or symptoms reported regarding the dermatologic system. Musculoskeletal: Reports pain in left arm and left leg. Injury Description: Laceration sustained to palmar aspect of right forearm is clean, a small amount of bleeding noted at this time. Historical: - Allergies: 17:35 IV contrast (Hives); ld1 17:35 tramadol; ld1 - PMHx: 17:35 BPH; COPD; Hypertension; Hypothyroidism; Osteoporosis; Prostate Cancer; ld1 - Immunization history:: Adult Immunizations up to date, Client reports having NOT received the Covid vaccine. - Social history:: Smoking status: Patient denies any tobacco usage or history of. Patient/guardian denies using alcohol. Screenin:48 Abuse screen: Denies threats or abuse. Denies injuries from another. Nutritional ld1 screening: No deficits noted. Tuberculosis screening: No symptoms or risk factors identified. Fall Risk None identified. Assessment: 17:48 Reassessment: see triage assessment. ld1 18:53 Reassessment: Patient appears in no apparent distress at this time. Pt c/o severe pain ld1 - states no pain medications are working. Notified ERP - see MAR for orders. Patient states symptoms have not improved. 19:37 Reassessment: Patient and/or family updated on plan of care and expected duration. Pain ll3 level reassessed. Pt states pain is 6/10 lying still, if he moves its a 10/10, ERP notified. 21:37 Reassessment: No changes from previously documented assessment. Patient and/or family ll3 updated on plan of care and expected duration. Pain level reassessed. Patient is alert, oriented x 3, equal unlabored respirations, skin warm/dry/pink. 23:00 Reassessment: No changes from previously documented assessment. Patient and/or family ll3 updated on plan of care and expected duration. Pain level reassessed. Patient is alert/active/playful, equal unlabored respirations, skin warm/dry/pink. 06/18 00:46 Reassessment: No changes from previously documented assessment. Patient and/or family ll3 updated on plan of care and expected duration. Pain level reassessed. Patient is alert, oriented x 3, equal unlabored respirations, skin warm/dry/pink. Vital Signs: 06/17 17:33 BP 148 / 77; Pulse 73; Resp 18; Temp 97.6(O); Pulse Ox 95% on R/A; Pain 9/10; ld1 17:48 BP 148 / 77; Pulse 76; Resp 18; Pulse Ox 96% on R/A; Pain 9/10; ld1 18:53 BP 140 / 78; Pulse 86; Resp 18; Pulse Ox 100% on R/A; Pain 9/10; ld1 19:49 BP 127 / 60; Pulse 94; Resp 24; Pulse Ox 96% on 2 lpm NC; ll3 21:37 BP 105 / 71; Pulse 102; Resp 18; Pulse Ox 93% on 2 lpm NC; ll3 22:32 BP 101 / 73; Pulse 96; Resp 17; Pulse Ox 96% on 2 lpm NC; ll3 23:23 BP 122 / 69; Pulse 93; Resp 20; Pulse Ox 96% on 2 lpm NC; ll3 06/18 00:30 BP 107 / 93; Pulse 88; Resp 15; Pulse Ox 96% on 2 lpm NC; ll3 ED Course: 06/17 17:20 Patient arrived in ED. eb 17:32 Viktoriya Barrera, AMNA is Primary Nurse. ld1 17:33 Mag Duggan FNP-C is PHCP. kb 17:33 Martin Benítez MD is Attending Physician. kb 17:35 Triage completed. ld1 17:35 Arm band placed on right wrist. ld1 17:48 Patient has correct armband on for positive identification. Placed in gown. Bed in low ld1 position. Call light in reach. Side rails up X2. child monitor on. Pulse ox on. NIBP on. Door closed. Noise minimized. Warm blanket given. 17:48 No provider procedures requiring assistance completed. Maintain EMS IV. Dressing ld1 intact. Good blood return noted. Site clean \T\ dry. Gauge \T\ site: 20G RAC. 19:01 Shoulder Left (2 View) XRAY In Process Unspecified. EDMS 19:01 Hip Left 2 View XRAY In Process Unspecified. EDMS 19:22 CT Pelvis wo Cont In Process Unspecified. EDMS 21:11 Initiated Pt for transfer to [facility], spoke with Manuela Jameson. 22:21 Pt accepted for transfer by Dr. Redd per Manuela Jameson. 06/18 01:36 Patient transferred, IV remains in place. ll3 Administered Medications: 06/17 17:48 Drug: morphine 4 mg Route: IVP; Infused Over: 4 mins; Site: right antecubital; ld1 17:57 Follow up: Response: No adverse reaction; Pain is unchanged, physician notified ld1 17:57 Follow up: Response: RASS: Alert and Calm (0) ld1 17:48 Drug: Zofran (Ondansetron) 4 mg Route: IVP; Site: right antecubital; ld1 17:57 Follow up: Response: No adverse reaction ld1 17:57 Drug: Dilaudid (HYDROmorphone) 1 mg Route: IVP; Site: right wrist; ld1 19:15 Follow up: Response: No adverse reaction; RASS: Alert and Calm (0) ld1 19:01 Drug: Dilaudid (HYDROmorphone) 1 mg Route: IVP; Site: right antecubital; ld1 19:15 Follow up: Response: No adverse reaction; RASS: Drowsy (-1) ld1 06/18 01:26 Drug: Dilaudid (HYDROmorphone) 1 mg Route: IVP; Site: right wrist; ll3 01:37 Follow up: Response: No adverse reaction ll3 Medication: 06/17 17:48 VIS not applicable for this client. ld1 Outcome: 21:23 ER care complete, transfer ordered by MD. garrett 06/18 01:36 Transferred by ground EMS to [facility], Transfer form completed. X-rays sent ll3 w/ patient. Condition: stable Instructed on the need for transfer, Demonstrated understanding of instructions. 01:37 Patient left the ED. ll3 Signatures: Dispatcher [employer] EDMag Snow, JUSTAC WATERPROOFER HELPER-Cleo Avila Lauren, RN RN ld1 Fany Harrison Lynsea RN RN ll3
[2022-06-17 21:46] LABS: SARS-CoV-2 Antigen Rapid Res Negative (Negative)
[2022-06-18] MEDS ORDERED: HYDROMORPHONE HCL 1 MG/ML INJ ONE (01:21)
[2022-06-18 04:54] VITALS: TEMP 97.6
[2022-06-18 05:09] VITALS: O2SAT 96
[2022-06-18 05:14] VITALS: BP 107/93
== END 2022-06-18 01:37 | disposition short-term general hospital (02) ==
LOC: ER 17:09
DX: S42.202A Unspecified fracture of upper end of left humerus, initial encounter for closed fracture (principal); S32.512A Fracture of superior rim of left pubis, initial encounter for closed fracture; S32.511A Fracture of superior rim of right pubis, initial encounter for closed fracture; S32.10XA Unspecified fracture of sacrum, initial encounter for closed fracture; I10 Essential (primary) hypertension; Z88.5 Allergy status to narcotic agent; Z91.041 Radiographic dye allergy status; Z20.822 Contact with and (suspected) exposure to COVID-19
CPT/HCPCS: 85025; 80048; 36415; 85610; 85730; 72192; 73502; 73030; 99285; 87811; J1170 ×3; J2405

== ENCOUNTER 2022-09-15 16:23 | Emergency (ER) | payer OTHER ==
--- OUTSIDE RECORDS SUMMARY | 2022-09-15 16:34 | XMS REPORT | Continuity of Care Document ---
:1935 Author Organization [facility] t Address [address] [place] [place] [address] Care Team Providers Name Role Phone Suzanne Gardiner MD Primary Care Physician JOHNATHAN CHAVARRIA Attending Clinician Unavailable Johnathan Chavarria Attending Clinician Sherita Torres Attending Clinician Nurse, Adc Pob Immunization Attending Clinician Unavailable Kelby Freed DO Attending Clinician Jose Mcclellan Attending Clinician Julia Darnell Attending Clinician Jermaine Prince Attending Clinician SHERITA TORRES Admitting Clinician Unavailable Sherita Torres Admitting Clinician Jermaine Prince Admitting Clinician Payers Payer Name Policy Type Policy Number Effective Date Expiration Date S abelshannan [employer] MEDICARE PPO [id number] 2021 00:00:00 [employer] MANAGED [id number] 2020 MEDICARE PPO-ENOC 00:00:00 Problems Condition Condition Condition Status Onset Resolution Last Treating Co mments Source Name Details Category Date Date Treatment Clinician Date L HUMERUS L HUMERUS Diagnosis Active 2022-06-18 Memoria FRACTURE FRACTURE 06-18 06:40:00 l Active 00:00: Jim 06/18/2022 00 [facility] LT HUMERUS LT Diagnosis Active 2022-07-08 Memoria FX,INFERIO HUMERUS 06-18 21:46:00 l R PUBIC FX,INFERIO 00:00: Rashmi nn RAMUS R PUBIC 00 FX,SA RAMUS FX,SA Active 06/18/2022 [facility] UNK UNK Diagnosis Active 2017-11-17 Mem oria Active 11-13 08:30:00 l 11/13/2017 00:00: Juan Jose ayoub [address] M54.5 - M54.5 - Diagnosis Active 2015-102017-05-17 Memoria LOW BACK LOW BACK 0- 09:29:00 l PAIN PAIN 00:01: Jim Active 00 08/05/2016 [facility] C6 C6 Diagnosis Active 2015-102016-07-25 Mem oria FRACTURE, FRACTURE, 007 09:31:00 l T5, FX, T5, FX, 00:00: Jim LIGAMENT LIGAMENT 00 EDEMA, LAC EDEMA, LAC Active 07/22/2016 [facility] Essential Essential Disease Active Uni vers hypertensi hypertensi 3-05 it y of [place] Prostate Prostate Disease Active Unive rs hypertroph hypertroph 3-05 it y of y y 00:00: [place] 00 [facility] Allergic Allergic Disease Active Unive rs rhinitis rhinitis 3-05 ity of 00:00: [place] 00 [facility] Vitamin D Vitamin D Disease Active Overview: Univers deficiency deficiency 3-05 Formattin ity of 00:00: g of this [place] 00 note Medical might be Branch different from the original. 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 3-05 ity of 00:00: [place] 00 Medical [facility] Essential Problem 2018-02-23 Me moria (primary) Essential 12:59:37 l hypertensi (primary) Her gomez on hypertensi on 02/23/2018 [facility] Encounter Encounter Problem 2018-02-23 Memoria for for 12:59:37 l immunizati immunizati He rmann on on 02/23/2018 [facility] Hypertensi Hypertens Problem Resolve 2022-07-07 Memoria ve max d 22:24:47 l disorder, disorder, Herm ondina systemic systemic arterial arterial (disorder) (disorder) Resolved Problem 07/07/2022 [facility], [facility] 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 22:24:47 l prostate prostate Juan Jose n (disorder) (disorder) Resolved Problem 07/07/2022 [facility], [facility] Benign Benign Problem Resolve 2022-07-07 Mem oria prostatic prostatic d 22:24:47 l hyperplasi hyperplasi He rmann a a (disorder) (disorder) Resolved Problem 07/07/2022 [facility], [facility] Pneumonia Pneumonia Problem Resolve 2022-07-07 Memoria (disorder) (disorder) d 22:24:47 l Resolved Jim Problem 07/07/2022 [facility], [facility] 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 (disorder) (disorder) Active Problem 07/07/2022 [facility] Compressio Compressi Problem Active 2022-07-07 Memoria n fracture on 22:24:47 l of second fracture Rashmi nn lumbar of second vertebra lumbar (disorder) vertebra (disorder) Active Problem 07/07/2022 [facility] Dyspnea on Dyspnea Problem Active 2022-07-07 Memoria exertion on 22:24:47 l (finding) exertion Rashmi nn (finding) Active Problem 07/07/2022 [facility] Fracture Fracture Problem Active 2022-07-07 Memoria of of 22:24:47 l cervical cervical Juan Jose n spine spine (disorder) (disorder) Active Problem 07/07/2022 [facility], [facility] Hyperlipid Hyperlipi Problem Active 2022-07-07 Memoria emia demia 22:24:47 l (disorder) (disorder) He rmann Active Problem 07/07/2022 [facility] Hypothyroi Hypothyro Problem Active 2022-07-07 Memoria dism idism 22:24:47 l (disorder) (disorder) He rmann Active Problem 07/07/2022 [facility] Wedge Wedge Problem Active 2022-07-07 Memor ia fracture fracture 22:24:47 l of of Jim thoracic thoracic vertebra vertebra (disorder) (disorder) Active Problem 07/07/2022 [facility] Benign Benign Problem Active 2022-07-07 Chil[place] jeannette prostatic prostatic 22:24:47 l hypertroph hypertroph He rmann with with outflow outflow obstructio obstructio n n (disorder) (disorder) Active Problem 07/07/2022 [facility] Hypoxia Hypoxia Problem Active 2022-07-07 Me moria (disorder) (disorder) 22:24:47 l Active Jim Problem 07/07/2022 [facility] ILLNESS, ILLNESS, Diagnosis Active 2016-07-25 Memoria UNSPECIFIE UNSPECIFIE 09:31:00 l D D Active [facility] [place] [place] UNSP DISP UNSP Diagnosis Active 2022-07-08 Memoria FX OF DISP FX OF 21:46:00 l SURGICAL SURGICAL Juan Jose n NECK OF NECK OF LEFT HU LEFT HU Active [facility] UNSP UNSP Diagnosis Active 2022-07-08 Mem oria FRACTURE FRACTURE 21:46:00 l OF SACRUM, OF SACRUM, He rmann INIT INIT ENCNTR FOR ENCNTR FOR Active [facility] OTH OTH Diagnosis Active 2022-07-08 Mem oria FRACTURE FRACTURE 21:46:00 l OF UNSP OF UNSP Jim PUBIS, PUBIS, INIT INIT ENCNTR ENCNTR Active [facility] History of Past Illness Condition Condition Condition Status Onset Resolution Last Treating Co mments Source Name Details Category Date Date Treatment Clinician Date Other Other Problem 2017-2018-02-23 2018-02-23 Tina ricardo osteoporos osteoporos 2-21 12:59:37 12:59:37 l is with is with 04:19: Jim current current 52 pathologic pathologic al al fracture, fracture, vertebra(e vertebra(e ), initial ), initial encounter encounter for for fracture fracture 12/06/2017 02/23/2018 [facility] Allergies, Adverse Reactions, Alerts Allergy Allergy Status Severity Reaction(s) Onset Inactive Treating Comm ents Source Name Type Date Date Clinician IODINE DRUG Active Hives Univers INGREDI 3-05 ity of 00:00: [place] 00 Medical Branch Iodine Propensi Active Hives Univers ty to 3-05 ity of adverse 00:00: [place] reaction [address] [place] [address] s Branch contrast contrast Active Memori a media media l (iodine- (iodine- Juan Jose n based) based) traMADol traMADol Active Memori a l Jim Social History Social Habit Start Date Stop Date Quantity Comments Source Social History 2022-06-18 2022-06-18 [facility] 14:18:01 14:18:01 Alcohol intake 2014-12-23 2014-12-23 Current drinker Unive rsity of 00:00:00 00:00:00 of alcohol [facility] (finding) Branch History of 2008-12-23 Smoker University of tobacco use 00:00:00 [facility] Sex Assigned At [birth year] Universit y of 00:00:00 00:00:00 [facility] Smoking Status Start Date Stop Date Source Former smoker [facility] Medications Ordered Filled Start Stop Current Ordering Indication Dosage Frequency Signature Comments Components Source Medication Medication Date Date Medication? Clinician (SIG) Name Name morphine Yes 10 mg = 5 M emoria mg/5 mL 9-20 ml, PO, l oral 17:28: Q4H, PRN Jim solution 00 Pain, If pain score is only 4-6, take 2.5 ml., X 5 day, # 120 mL, 0 Refill(s), Pharmacy: [facility] [place], 185.42, cm, 06/18/22 15:22:00 CDT, Height, 81.818, kg, 06/18/22 15:22:00 CDT, Weight morphine Yes 10 mg = 5 M emoria mg/5 mL 9-20 ml, PO, l oral 17:28: Q4H, PRN [place] solution 00 Pain, If pain score is only 4-6, take 2.5 ml., X 5 day, # 120 mL, 0 Refill(s), Pharmacy: [facility] [place], 185.42, cm, 06/18/22 15:22:00 CDT, Height, 81.818, kg, 06/18/22 15:22:00 CDT, Weight morphine 10 Yes 10 mg = 5 M emoria mg/5 mL 9-20 mL, PO, l oral 14:14: Q4H, PRN Jim solution 00 Pain Score 7-10, Patient is on Hospice care Take 2.5 ml if pain is scored 4-6., X 5 day, # 120 mL, 0 Refill(s), Pharmacy: [facility], 185.42, cm, 06/18/22 15:22:00 CDT, Height, 81.818, kg, 06/18/22 15:22:00 CDT, We... morphine 10 Yes 10 mg = 5 M emoria mg/5 mL 9-20 mL, PO, l oral 14:14: Q4H, PRN Jim solution 00 Pain Score 7-10, Patient is on Hospice care Take 2.5 ml if pain is scored 4-6., X 5 day, # 120 mL, 0 Refill(s), Pharmacy: [facility], 185.42, cm, 06/18/22 15:22:00 CDT, Height, 81.818, kg, 06/18/22 15:22:00 CDT, We... metoprolol Yes 25 mg = 1 Me moria tartrate 25 9-20 tab, PO, l mg oral 14:13: Q12H, # 60 Herm ondina tablet 00 tab, 0 Refill(s), Pharmacy: [facility], 185.42, cm, 06/18/22 15:22:00 CDT, Height, 81.818, kg, 06/18/22 15:22:00 CDT, Weight metoprolol Yes 25 mg = 1 Me moria tartrate 25 9-20 tab, PO, l mg oral 14:13: Q12H, # 60 Herm ondina tablet 00 tab, 0 Refill(s), Pharmacy: [facility], 185.42, cm, 06/18/22 15:22:00 CDT, Height, 81.818, kg, 06/18/22 15:22:00 CDT, Weight melatonin No Notes: Memori a 9-18 (Same as: l 15:56: Melatonin) Jim Roxanol No Notes: Memoria 9-18 (Same l 15:56: as:MORPhin Jim 00 e Sulfate) melatonin No Notes: Memori a 9-18 (Same as: l 15:56: Melatonin) Jim Roxanol No Notes: Memoria 9-18 (Same l 15:56: as:MORPhin [place] 00 e Sulfate) Lasix No Notes: Memoria 9-17 (Same as: l 22:15: Lasix) Jim 00 MEDICATION WASTE Product Size: 40 mg Product Wasted: 0 mg Lasix No Notes: Memoria 9-17 (Same as: l 22:15: Lasix) Jim 00 MEDICATION WASTE Product Size: 40 mg Product Wasted: 0 mg liothyronin No Notes: [place] jeannette e 9-17 (Same as: l 14:16: Cytomel) Jim 00 liothyronin No Notes: [place] jeannette e 9-17 (Same as: l 14:16: Cytomel) [place] 00 morphine No Notes: Memoria Sulfate 9-17 (Same l 12:33: as:MORPhin [place] 00 e Sulfate) morphine No Notes: Memoria Sulfate 9-17 (Same l 12:33: as:MORPhin [place] 00 e Sulfate) Lasix No Notes: Memoria 9-17 (Same as: l 12:18: Lasix) Jim 00 MEDICATION WASTE Product Size: 40 mg Product Wasted: ___ mg Lasix No Notes: Memoria 9-17 (Same as: l 12:18: Lasix) [place] 00 MEDICATION WASTE Product Size: 40 mg Product Wasted: ___ mg methylPREDN No Notes: [place] jeannette ISolone 9-17 (Same l SODium 09:38: as:Solu-ME Rashmi nn SUCCinate 00 DROL, A-Methapre d) methylPREDN No Notes: [place] jeannette ISolone 9-17 (Same l SODium 09:38: as:Solu- Rashmi nn SUCCinate 00 DROL, A-Methapre d) Combivent Yes Notes: Memori a Respimat 07-02 Same as: l CFC free 09:37: Combivent Herm ondina 100 mcg-20 00 Respimat mcg/inh WASTE: inhalation Aerosol - aerosol Return to Pharmacy Combivent Yes Notes: Memori a Respimat 07-02 Same as: l CFC free 09:37: Combivent Herm ondina 100 mcg-20 00 Respimat mcg/inh WASTE: inhalation Aerosol - aerosol Return to Pharmacy Adult No Notes: Memoria Parenteral 07-02 Must use l Nutrition 03:00: 1.2 micron He rmann Custom - 00 filter AND Peripheral Lipids (PPN not should not TPN) 1,800 be mL administer ed to patients who are allergic to soy, fish, egg or peanuts. Adult No Notes: Memoria Parenteral 07-02 Must use l Nutrition 03:00: 1.2 micron He rmann Custom - 00 filter AND Peripheral Lipids (PPN not should not TPN) 1,800 be mL administer ed to patients who are allergic to soy, fish, egg or peanuts. Saline No Notes: Memoria Flush 0.9% 9-16 (Same as: l 21:00: BD [place] 00 Posiflush) Saline No Notes: Memoria Flush 0.9% 9-16 (Same as: l 21:00: BD Jim 00 Posiflush) Isolyte S No Notes: Memori a PH 7.4 - (Same as: l 1,000 mL 20:14: Isolyte S Herm ondina 00 PH7.4, Normosol-R PH 7.4, Plasma-Lyt e A ) Isolyte S No Notes: Memori a PH 7.4 -16 (Same as: l 1,000 mL 20:14: Isolyte S Herm ondina 00 PH7.4, Normosol-R PH 7.4, Plasma-Lyt e A ) potassium No Notes: Memori a chloride -16 (Same as: l 20:00: KCL) 10 [place] 00 mEq/100ml product recommende d for peripheral line administra tion. Infuse no faster than 10 mEq/hr if given peripheral ly. potassium No Notes: Memori a chloride 9-16 (Same as: l 20:00: KCL) 10 mEq/100ml product recommende d for peripheral line administra tion. Infuse no faster than 10 mEq/hr if given peripheral ly. LR IV 1,000 No 1,000 mL, M emoria mL 9-16 Rate: 125 l 19:57: ml/hr, Jim 00 Infuse over: 8 hr, Route: IV, Dosing Weight 81.818 kg, Total Volume: 1,000, Start date: 07/01/22 14:57:00 CDT, Duration: 2 day, Stop date: 07/03/22 14:56:00 CDT, BSA: 2.06 m2, 0 LR IV 1,000 No 1,000 mL, M emoria mL 07-01 Rate: 125 l 19:57: ml/hr, Infuse over: 8 hr, Route: IV, Dosing Weight 81.818 kg, Total Volume: 1,000, Start date: 07/01/22 14:57:00 CDT, Duration: 2 day, Stop date: 07/03/22 14:56:00 CDT, BSA: 2.06 m2, 0 bisacodyl No Notes: Memori a 9-16 (Same As: l 19:00: Dulcolax, [place] 00 Bisco-Lax) bisacodyl No Notes: Memori a 9-16 (Same As: l 19:00: Dulcolax, Jim 00 Bisco-Lax) Venelex No Notes: Memoria topical -16 Same as: l ointment 14:20: Venelex Juan Jose n 00 Non-Formul vicky Venelex No Notes: Memoria topical 9-16 Same as: l ointment 14:20: Venelex Juan Jose n 00 Non-Formul vicky levothyroxi No Notes: [place] jeannette ne -16 (Same as: l 14:00: Synthroid) Reconstitu te with 5ml of NS. Final concentrat ion = 20 micrograms /ml. Shake well and use immediatel y after reconstitu tion and discard remaining solution. lidocaine No Notes: Memori a 1% 9-16 Preservati l 14:00: ve free. (Same as: Xylocaine MPF) levothyroxi No Notes: [place] jeannette ne 9-16 (Same as: l 14:00: Synthroid) Reconstitu te with 5ml of NS. Final concentrat ion = 20 micrograms /ml. Shake well and use immediatel y after reconstitu tion and discard remaining solution. lidocaine No Notes: Memori a 1% 9-16 Preservati l 14:00: ve free. (Same as: Xylocaine MPF) Saline No Notes: Memoria Flush 0.9% 9-16 (Same as: l 13:13: BD Posiflush) Saline No Notes: Memoria Flush 0.9% 9-16 (Same as: l 13:13: BD Posiflush) piperacilli No Notes: [place] jeannette n-tazobacta -16 (Same as: l m 12:00: Zosyn) Dosing based on Piperacill in component MEDICATION WASTE Product Size: 3375 mg Product Wasted: 0 mg piperacilli No Notes: Ch[place] jeannette n-tazobacta 16 (Same as: l m 12:00: Zosyn) Dosing based on Piperacill in component MEDICATION WASTE Product Size: 3375 mg Product Wasted: 0 mg LR IV 500 No 500 mL, Memor ia mL 9-16 Rate: 500 l 11:56: ml/hr, Infuse over: 1 hr, Route: IV, Dosing Weight 81.818 kg, Total Volume: 500, Start date: 07/01/22 6:56:00 CDT, Duration: 1 doses or times, Stop date: 07/01/22 7:55:00 CDT, BSA: 2.06 m2, 0 LR IV 500 No 500 mL, Memor ia mL 9-16 Rate: 500 l 11:56: ml/hr, Jim 00 Infuse over: 1 hr, Route: IV, Dosing Weight 81.818 kg, Total Volume: 500, Start date: 07/01/22 6:56:00 CDT, Duration: 1 doses or times, Stop date: 07/01/22 7:55:00 CDT, BSA: 2.06 m2, 0 MiraLax No Notes: Memoria 9-15 Dissolve l 22:00: in 8 oz of [place] 00 water or juice. (Same as: Miralax) senna 8.6 No Notes: Memori a mg oral 9-15 (Same as: l tablet 22:00: Senokot) [place] 00 naproxen No Notes: Memoria 9-15 (Same as: l 22:00: Naprosyn) [place] 00 Take with food. MiraLax No Notes: Memoria 9-15 Dissolve l 22:00: in 8 oz of Jim 00 water or juice. (Same as: Miralax) senna 8.6 No Notes: Memori a mg oral 9-15 (Same as: l tablet 22:00: Senokot) Jim 00 naproxen No Notes: Memoria 9-15 (Same as: l 22:00: Naprosyn) Jim 00 Take with food. tramadol 50 No Notes: Not Memoria mg oral 9-15 to exceed l tablet 17:29: 400mg/day. Rashmi nn 00 (Same As: Ultram) tramadol 50 No Notes: Not Memoria mg oral 9-15 to exceed l tablet 17:29: 400mg/day. Rashmi nn 00 (Same As: Ultram) Protonix No Notes: For Mem oria 9-15 IV push l 12:30: reconstitu [place] 00 te with 10 ml 0.9% sodium chloride and push over 2 minutes. (Same as: Protonix) Protonix No Notes: For Mem oria 9-15 IV push l 12:30: reconstitu Jim 00 te with 10 ml 0.9% sodium chloride and push over 2 minutes. (Same as: Protonix) D5LR 1,000 No 1,000 mL, Me moria mL 9-15 Rate: 100 l 12:28: ml/hr, Jim 00 Infuse over: 10 hr, Route: IV, Dosing Weight 81.818 kg, Total Volume: 1,000, Start date: 06/30/22 7:28:00 CDT, Duration: 30 day, Stop date: 07/30/22 7:27:00 CDT, BSA: 2.06 m2, 0 D5LR 1,000 No 1,000 mL, Me moria mL 9-15 Rate: 100 l 12:28: ml/hr, [place] 00 Infuse over: 10 hr, Route: IV, Dosing Weight 81.818 kg, Total Volume: 1,000, Start date: 06/30/22 7:28:00 CDT, Duration: 30 day, Stop date: 07/30/22 7:27:00 CDT, BSA: 2.06 m2, 0 metoclopram No Notes: [place] jeannette jd 9-15 (Same as: l 12:00: Reglan) metoclopram No Notes: [place] jeannette jd 9-15 (Same as: l 12:00: Reglan) remove No Notes: Memoria patch 9-15 Remove l 04:00: patch 12 [place] 00 hours after applicatio n each day. remove No Notes: Memoria patch 9-15 Remove l 04:00: patch 12 Jim 00 hours after applicatio n each day. metoprolol No Notes: Memor ia tartrate 9-15 (Same as: l 02:00: Lopressor) metoprolol No Notes: Memor ia tartrate 9-15 (Same as: l 02:00: Lopressor) hydromorpho No Notes: [place] jeannette ne 9-14 Same as: l 22:49: Dilaudid hydromorpho No Notes: [place] jeannette ne 9-14 Same as: l 22:49: Dilaudid lidocaine No Notes: Memori a topical 9-14 Patch is l 16:00: applied to [place] 00 intact skin to cover painful area for up to 12 hours in a 24-hour period (12 hours on and 12 hours off). Please indicate the location of applicatio n site. Site 1: Remove old patch before applicatio n of new patch. (Same as Aspercreme Lidocaine Patch) lidocaine 2021-0 No Notes: Memori a topical 9-14 Patch is l 16:00: applied to [place] 00 intact skin to cover painful area for up to 12 hours in a 24-hour period (12 hours on and 12 hours off). Please indicate the location of applicatio n site. Site 1: Remove old patch before applicatio n of new patch. (Same as Aspercreme Lidocaine Patch) Lactated 2-0 No 1,000 mL, Chilango jeannette Ringers 9-14 1,000 l (Bolus) IV 13:03: ml/hr, Rashmi nn 00 Infuse Over: 1 hr, Route: IV, 1,000, Drug form: INJ, ONCE, Dosing Weight 81.818 kg, Start date: 06/29/22 8:03:00 CDT, Stop date: 06/29/22 8:03:00 CDT, 0 LR IV 1,000 2021-0 No 1,000 mL, M emoria mL 9-14 Rate: 125 l 13:03: ml/hr, [place] 00 Infuse over: 8 hr, Route: IV, Dosing Weight 81.818 kg, Total Volume: 1,000, Start date: 06/29/22 8:03:00 CDT, Duration: 2 day, Stop date: 07/01/22 8:02:00 CDT, BSA: 2.06 m2, 0 Lactated 2-0 No 1,000 mL, Chilango jeannette Ringers 9-14 1,000 l (Bolus) IV 13:03: ml/hr, Rashmi nn 00 Infuse Over: 1 hr, Route: IV, 1,000, Drug form: INJ, ONCE, Dosing Weight 81.818 kg, Start date: 06/29/22 8:03:00 CDT, Stop date: 06/29/22 8:03:00 CDT, 0 LR IV 1,000 2-0 No 1,000 mL, M emoria mL 9-14 Rate: 125 l 13:03: ml/hr, [place] 00 Infuse over: 8 hr, Route: IV, Dosing Weight 81.818 kg, Total Volume: 1,000, Start date: 06/29/22 8:03:00 CDT, Duration: 2 day, Stop date: 07/01/22 8:02:00 CDT, BSA: 2.06 m2, 0 remove No Notes: Memoria patch 9-14 Remove l 09:00: patch 12 [place] 00 hours after applicatio n each day. remove No Notes: Memoria patch 9-14 Remove l 09:00: patch 12 Jim 00 hours after applicatio n each day. lidocaine No Notes: Memori a topical 9-13 Patch is l 21:00: applied to [place] 00 intact skin to cover painful area for up to 12 hours in a 24-hour period (12 hours on and 12 hours off). Please indicate the location of applicatio n site. Site 1: Remove old patch before applicatio n of new patch. (Same as Aspercreme Lidocaine Patch) lidocaine No Notes: Memori a topical 9-13 Patch is l 21:00: applied to Jim 00 intact skin to cover painful area for up to 12 hours in a 24-hour period (12 hours on and 12 hours off). Please indicate the location of applicatio n site. Site 1: Remove old patch before applicatio n of new patch. (Same as Aspercreme Lidocaine Patch) polyethylen 0 No Notes: Chil[place] jeannette e glycol 9-12 Dissolve l 3350 14:21: in 8 oz of [place] 00 water or juice. (Same as: Miralax) senna No Notes: Memoria 9-12 (Same as: l 14:21: Senokot) Jim 00 polyethylen No Notes: [place]il[place] jeannette e glycol 9-12 Dissolve l 3350 14:21: in 8 oz of [place] 00 water or juice. (Same as: Miralax) senna No Notes: Memoria 9-12 (Same as: l 14:21: Senokot) [place] 00 Robaxin No Notes: Memoria 9-10 (Same l 23:19: as:Robaxin Jim 00 ) Robaxin No Notes: Memoria 9-10 (Same l 23:19: as:Robaxin Jim 00 ) Robaxin No Notes: Memoria 9-10 (Same l 14:47: as:Robaxin [place] 00 ) Robaxin No Notes: Memoria 9-10 (Same l 14:47: as:Robaxin [place] 00 ) morphine No Notes: Memoria Sulfate 9-10 (Same l 14:46: as:MORPhin [place] 00 e Sulfate) morphine 15 No Notes: Chilango jeannette mg oral 9-10 (Same l tablet 14:46: as:MORPhin Rashmi nn 00 e Sulfate) morphine No Notes: Memoria Sulfate 9-10 (Same l 14:46: as:MORPhin [place] 00 e Sulfate) morphine 15 No Notes: [place] jeannette mg oral 9-10 (Same l tablet 14:46: as:MORPhin Rashmi nn 00 e Sulfate) ceFAZolin No Notes: Memori a 9-10 (Same as l 03:00: Ancef) [place] ceFAZolin No Notes: Memori a 9-10 (Same as l 03:00: Ancef) [place] ceFAZolin No 2 gm, Memoria 9-10 Route: l 00:00: IVPB, Jim 00 ABXQ8H, Dosing Weight 81.818, kg, Start date: 06/24/22 19:00:00 CDT, Duration: 1 day, Stop date: 06/25/22 11:00:00 CDT, ABX Indication : Surgical Prophylaxi s ceFAZolin No 2 gm, Memoria 9-10 Route: l 00:00: IVPB, [place] 00 ABXQ8H, Dosing Weight 81.818, kg, Start date: 06/24/22 19:00:00 CDT, Duration: 1 day, Stop date: 06/25/22 11:00:00 CDT, ABX Indication : Surgical Prophylaxi s heparin No Notes: Memoria 5000 9- porcine l units/mL 21:00: heparin Juan Jose n injectable 00 solution heparin No Notes: Memoria 5000 06-24 porcine l units/mL 21:00: heparin Juan Jose n injectable 00 solution fentaNYL No Route: IV, Mem oria (ANES) 06-24 Drug form: l 20:52: INJ, ONCE, Stop date: 06/24/22 15:52:00 CDT ondansetron No Route: IV, Memoria (ANES) 06-24 Drug form: l 20:52: INJ, ONCE, Stop date: 06/24/22 15:52:00 CDT fentaNYL No Route: IV, Mem oria (ANES) 06-24 Drug form: l 20:52: INJ, ONCE, Stop date: 06/24/22 15:52:00 CDT ondansetron No Route: IV, Memoria (ANES) 06-24 Drug form: l 20:52: INJ, ONCE, Stop date: 06/24/22 15:52:00 CDT dexamethaso No Route: IV, Memoria ne (ANES) 06-24 Drug form: l 20:11: INJ, ONCE, Stop date: 06/24/22 15:11:00 CDT ketAMINE No Route: IV, Mem oria (ANES) 06-24 Drug form: l 20:11: INJ, ONCE, Stop date: 06/24/22 15:11:00 CDT albuterol No Route: Memori a (ANES) 06-24 INHALATION l 20:11: , Drug form: AERO/A, ONCE, Stop date: 06/24/22 15:11:00 CDT dexamethaso No Route: IV, Memoria ne (ANES) 06-24 Drug form: l 20:11: INJ, ONCE, Stop date: 06/24/22 15:11:00 CDT ketAMINE No Route: IV, Mem oria (ANES) 06-24 Drug form: l 20:11: INJ, ONCE, Stop date: 06/24/22 15:11:00 CDT albuterol 0 No Route: Memori a (ANES) 06-24 INHALATION l 20:11: , Drug form: AERO/A, ONCE, Stop date: 06/24/22 15:11:00 CDT lidocaine 2021-0 No Route: IV, Me moria (ANES) 06-24 Drug form: l 20:05: INJ, ONCE, Stop date: 06/24/22 15:05:00 CDT propofol 2021-0 No Route: IV, Mem oria (ANES) 06-24 Drug form: l 20:05: INJ, ONCE, Stop date: 06/24/22 15:05:00 CDT lidocaine 2021-0 No Route: IV, Me moria (ANES) 06-24 Drug form: l 20:05: INJ, ONCE, Stop date: 06/24/22 15:05:00 CDT propofol 2021-0 No Route: IV, Mem oria (ANES) 06-24 Drug form: l 20:05: INJ, ONCE, Stop date: 06/24/22 15:05:00 CDT rocuronium 2021-0 No Route: IV, M emoria (ANES) 06-24 Drug form: l 20:00: INJ, ONCE, Stop date: 06/24/22 15:00:00 CDT ceFAZolin 0 No Route: IV, Me moria (ANES) 06-24 Drug form: l 20:00: INJ, ONCE, Stop date: 06/24/22 15:00:00 CDT rocuronium 2021-0 No Route: IV, M emoria (ANES) 06-24 Drug form: l 20:00: INJ, ONCE, Stop date: 06/24/22 15:00:00 CDT ceFAZolin 2021-0 No Route: IV, Me moria (ANES) 06-24 Drug form: l 20:00: INJ, ONCE, Stop date: 06/24/22 15:00:00 CDT ANES 2021-0 No Notes: Memoria flumazenil 06-24 (Same as: l 19:35: Romazicon) Jim ANES No Notes: Memoria naloxone 06-24 Same as l 19:35: Narcan Jim ANES No Notes: SEE Memoria albuterol 06-24 RT l 0.083% 19:35: DOCUMENTAT Rashmi nn inhalation 00 ION (Same solution as: Proventil) ANES No Notes: Memoria ondansetron 06-24 (Same as: l 19:35: Zofran) [place] 00 MEDICATION WASTE Product Size: 4 mg Product Wasted: ___ mg ANES No Notes: Do Memoria promethazin 06-24 not give l e + Sodium 19:35: IV push. Her gomez Chloride 00 (Same as: 0.9% IV 50 Phenergan) mL ANES No Notes: Memoria hydrALAZINE 06-24 (Same as: l 19:35: Apresoline [place] ) Push over 5 minutes ANES No 10 mg, 2 Memoria labetalol 06-24 mL, Route: l 19:35: IVP, Drug form: INJ, Q5Min, Dosing Weight 81.818, kg, PRN Elevated BP, Start date: 06/24/22 14:35:00 CDT, Duration: 5 doses or times, Stop date: 06/25/22 0:00:00 CDT, 0 ANES No Notes: Max Memoria acetaminoph 06-24 acetaminop l en 19:35: hen 4000 [place] 00 mg/day (4 gm/day). (Same as: Tylenol Extra Strength) ANES No Notes: Memoria oxyCODONE 5 06-24 (Same as: l mg 19:35: Roxicodone Jim immediate 00 ) release tablet ANES No Notes: Memoria fentaNYL 06-24 (Same as: l 19:35: Sublimaze) [place] 00 Preservati ve free. ANES No Notes: Memoria HYDROmorpho 06-24 Same as: l ne 19:35: Dilaudid Jim 00 ANES No Notes: Memoria ondansetron 06-24 (Same as: l 19:35: Zofran) Jim MEDICATION WASTE Product Size: 4 mg Product Wasted: ___ mg ANES No Notes: Do Memoria promethazin 06-24 not give l e + Sodium 19:35: IV push. Her gomez Chloride 00 (Same as: 0.9% IV 50 Phenergan) mL ANES No Notes: Memoria hydrALAZINE 06-24 (Same as: l 19:35: Apresoline Jim ) Push over 5 minutes ANES No 10 mg, 2 Memoria labetalol 06-24 mL, Route: l 19:35: IVP, Drug form: INJ, Q5Min, Dosing Weight 81.818, kg, PRN Elevated BP, Start date: 06/24/22 14:35:00 CDT, Duration: 5 doses or times, Stop date: 06/25/22 0:00:00 CDT, 0 ANES No Notes: Max Memoria acetaminoph 06-24 acetaminop l en 19:35: hen 4000 [place] 00 mg/day (4 gm/day). (Same as: Tylenol Extra Strength) ANES No Notes: Memoria oxyCODONE 5 06-24 (Same as: l mg 19:35: Roxicodone Jim immediate 00 ) release tablet ANES No Notes: Memoria fentaNYL 06-24 (Same as: l 19:35: Sublimaze) Preservati ve free. ANES No Notes: Memoria HYDROmorpho 06-24 Same as: l ne 19:35: Dilaudid Jim ANES No Notes: Memoria flumazenil 06-24 (Same as: l 19:35: Romazicon) [place] ANES No Notes: Memoria naloxone 06-24 Same as l 19:35: Narcan [place] ANES No Notes: SEE Memoria albuterol 06-24 RT l 0.083% 19:35: DOCUMENTAT Rashmi nn inhalation 00 ION (Same solution as: Proventil) Lactated No Route: IV, Mem oria Ringers 06-24 Total l Injection 18:34: Volume: Rashmi nn IV (ANES) 00 1,000, 1000 mL Start date: 06/24/22 13:34:00 CDT, Stop date: 06/24/22 14:34:00 CDT Lactated No Route: IV, Mem oria Ringers 06-24 Total l Injection 18:34: Volume: Rashmi nn IV (ANES) 00 1,000, 1000 mL Start date: 06/24/22 13:34:00 CDT, Stop date: 06/24/22 14:34:00 CDT Exparel No Notes: 06-24 (Same as: l 16:00: Exparel) NOT FOR IV use Postoperat max analgesia: Infiltrati on (local): Dose is based on surgical site and volume required to cover the area (in general, the maximum total dose is 266 mg). Bunionecto my: 7 mL into the tissues surroundin g the osteotomy and 1 mL into the subcutaneo us tissue of the surgical site (total dose = 8 mL [106 mg]) Hemorrhoid ectomy: 30 mL (20 mL vial diluted with 10 mL NS) divided and administer ed as 6 injections of 5 mL each (total dose = 30 mL [266 mg]) Interscale ne brachial plexus nerve block: Single dose: Total shoulder arthroplas ty or rotator cuff repair: 133 mg (10 mL) Exparel No Notes: 06-24 (Same as: l 16:00: Expare) NOT FOR IV use Postoperat max analgesia: Infiltrati on (local): Dose is based on surgical site and volume required to cover the area (in general, the maximum total dose is 266 mg). Bunionecto my: 7 mL into the tissues surroundin g the osteotomy and 1 mL into the subcutaneo us tissue of the surgical site (total dose = 8 mL [106 mg]) Hemorrhoid ectomy: 30 mL (20 mL vial diluted with 10 mL NS) divided and administer ed as 6 injections of 5 mL each (total dose = 30 mL [266 mg]) Interscale ne brachial plexus nerve block: Single dose: Total shoulder arthroplas ty or rotator cuff repair: 133 mg (10 mL) remove No Notes: Memoria patch - Remove l 15:27: patch 12 Jim 00 hours after applicatio n each day. remove No Notes: Memoria patch - Remove l 15:27: patch 12 Jim 00 hours after applicatio n each day. Vitamin B12 No Notes: Chilango jeannette - (Same As: l 14:00: Vitamin [place] 00 B-12) Vitamin B12 No Notes: Chilango jeannette 06-24 (Same As: l 14:00: Vitamin Jim 00 B-12) remove No Notes: Memoria patch - Remove l 02:00: patch 12 Jim 00 hours after applicatio n each day. remove No Notes: Memoria patch 06-24 Remove l 02:00: patch 12 Jim 00 hours after applicatio n each day. acetaminoph No Notes: Max Memoria en 06-23 acetaminop l 19:00: hen = [place] 00 4000mg/day (4 gm/day). (Same as: Tylenol) acetaminoph No Notes: Max Memoria en 9-08 acetaminop l 19:00: hen = [place] 00 4000mg/day (4 gm/day). (Same as: Tylenol) SMOG Enema No Notes: Memor ia 08 saline for l 16:20: irrigation Jim 00 (1L bottle) 100 mL, mineral oil 100 mL, glycerine 100 mL. Dispense (300 ml) in 1L NS bottle SMOG Enema No Notes: Memor ia 9-08 saline for l 16:20: irrigation [place] 00 (1L bottle) 100 mL, mineral oil 100 mL, glycerine 100 mL. Dispense (300 ml) in 1L NS bottle senna No Notes: Memoria 06-23 (Same as: l 14:00: Senokot) Jim 00 polyethylen No Notes: Chilango jeannette e glycol 06-23 Dissolve l 3350 14:00: in 8 oz of [place] 00 water or juice. (Same as: Miralax) senna No Notes: Memoria 06-23 (Same as: l 14:00: Senokot) polyethylen No Notes: Chilango jeannette e glycol 06-23 Dissolve l 3350 14:00: in 8 oz of water or juice. (Same as: Miralax) benzocaine No Notes: Memor ia topical 06-23 Non-Formul l 13:51: vicky Drug (Same as: Chlorasept ic) benzocaine No Notes: Memor ia topical 06-23 Non-Formul l 13:51: vicky Drug (Same as: Chlorasept ic) hydromorpho No Notes: Chilango jeannette ne 06-23 Same as: l 13:34: Dilaudid naloxone No Notes: Memoria 06-23 Same as l 13:34: Narcan bisacodyl No Notes: Memori a 06-23 (Same As: l 13:34: Dulcolax, Bisco-Lax) ondansetron No Notes: Chilango jeannette 06-23 (Same as: l 13:34: Zofran) MEDICATION WASTE Product Size: 4 mg Product Wasted: ___ mg melatonin No Notes: Memori a 06-23 (Same as: l 13:34: Melatonin) Flonase No Notes: Memoria 0.05 mg/inh 06-23 (Same as: l nasal spray 13:34: Flonase) [place] r[place] 00 diphenhydrA No 1 appl, Mem oria MINE 06-23 Route: l topical 2% 13:34: TOP, QID, He rmann cream 00 Drug form: CRM, PRN as needed for itching, Start date: 06/23/22 8:34:00 CDT, Duration: 30 day, Stop date: 07/23/22 8:33:00 CDT, 0 Cepacol No 1 lozenge, Chilango jeannette Sore Throat 06-23 Route: l 15 mg-3.6 13:34: MUCOUS Juan Jose n mg mucous 00 MEM, Drug membrane Form: JALYN, lozenge Dosing Weight 81.818, kg, Q2H, PRN Sore Throat, Start date: 06/23/22 8:34:00 CDT, Duration: 30 day, Stop date: 07/23/22 8:33:00 CDT Tums No Notes: Memoria 06-23 (Same As: l 13:34: Tums) Jim 00 Calcium Carbonate 500 mg = 200 mg elemental calcium Dose = mg calcium carbonate ( mg elemental calcium) simethicone No Notes: Chilango jeannette - (Same as: l 13:34: Mylicon) [place] 00 ocular No Notes: Memoria lubricant 06-23 (Same as: l solution 13:34: Aquasite) Herm ondina 00 sodium No Notes: Memoria chloride 06-23 (Same as: l nasal 13:34: Bracken, [place] solution 00 Deep Sea Nasal [place]). Calmoseptin No Notes: Chilango jeannette e topical 06-23 (Same as: l ointment 13:34: Calmosepti Her gomez 00 ne) cetirizine No Notes: Memor ia -08 (Same As: l 13:34: Zyrtec) [place] 00 Tessalon No Notes: Memoria Perles 06-23 (Same As: l 13:34: Tessalon Jim 00 Perles) "Do Not Crush" Blistex No Notes: Memoria topical 06-23 Same as: l ointment 13:34: Blistex Juan Jose n 00 Robitussin- No Notes: Chilango jeannette DM 06-23 (dextromet l 13:34: horphan-gu Jim 00 aifenesin 10-100mg/5 ml 10 ml oral SOLN ud) (Same as: Robitussin DM) albuterol No Notes: SEE Me moria 0.083% - RT l inhalation 13:34: DOCUMENTAT H ermann solution 00 ION (Same as: Proventil) Eucerin No Notes: Memoria topical 06-23 (Same as: l cream 13:34: Eucerin) Jim 00 oxyCODONE No Notes: Memori a immediate 06-23 (Same as: l release 13:34: Roxicodone Herm ) Reglan No Notes: Memoria 06-23 (Same as: l 13:34: Reglan) hydromorpho No Notes: Chilango jeannette ne 06-23 Same as: l 13:34: Dilaudid naloxone No Notes: Memoria 06-23 Same as l 13:34: Narcan bisacodyl No Notes: Memori a 06-23 (Same As: l 13:34: Dulcolax, Bisco-Lax) ondansetron No Notes: Chilango jeannette 06-23 (Same as: l 13:34: Zofran) MEDICATION WASTE Product Size: 4 mg Product Wasted: ___ mg melatonin No Notes: Memori a 06-23 (Same as: l 13:34: Melatonin) Flonase No Notes: Memoria 0.05 mg/inh 06-23 (Same as: l nasal spray 13:34: Flonase) He rm diphenhydrA No 1 appl, Mem oria MINE 06-23 Route: l topical 2% 13:34: TOP, QID, He rmann cream 00 Drug form: CRM, PRN as needed for itching, Start date: 06/23/22 8:34:00 CDT, Duration: 30 day, Stop date: 07/23/22 8:33:00 CDT, 0 Cepacol No 1 lozenge, Chilango jeannette Sore Throat 06-23 Route: l 15 mg-3.6 13:34: MUCOUS Juan Jose n mg mucous 00 MEM, Drug membrane Form: JALYN, lozenge Dosing Weight 81.818, kg, Q2H, PRN Sore Throat, Start date: 06/23/22 8:34:00 CDT, Duration: 30 day, Stop date: 07/23/22 8:33:00 CDT Tums No Notes: Memoria -08 (Same As: l 13:34: Tums) Calcium Carbonate 500 mg = 200 mg elemental calcium Dose = mg calcium carbonate ( mg elemental calcium) simethicone No Notes: Chilango jeannette 9-08 (Same as: l 13:34: Mylicon) [place] ocular No Notes: Memoria lubricant -08 (Same as: l solution 13:34: Aquasite) Herm ondina 00 sodium No Notes: Memoria chloride 08 (Same as: l nasal 13:34: Bracken, Jim solution 00 Deep Sea Nasal [place]). Calmoseptin No Notes: Chilango jeannette e topical 06-23 (Same as: l ointment 13:34: Calmosepti Her gomez 00 ne) cetirizine No Notes: Memor ia -08 (Same As: l 13:34: Zyrtec) Tessalon No Notes: Memoria Perles -08 (Same As: l 13:34: Tessalon [place] 00 Perles) "Do Not Crush" Blistex No Notes: Memoria topical 08 Same as: l ointment 13:34: Blistex Juan Jose n 00 Robitussin- No Notes: Chilango jeannette DM -08 (dextromet l 13:34: horphan-gu aifenesin 10-100mg/5 ml 10 ml oral SOLN ud) (Same as: Robitussin DM) albuterol No Notes: SEE Me moria 0.083% - RT l inhalation 13:34: DOCUMENTAT H ermann solution 00 ION (Same as: Proventil) Eucerin No Notes: Memoria topical -08 (Same as: l cream 13:34: Eucerin) oxyCODONE No Notes: Memori a immediate -08 (Same as: l release 13:34: Roxicodone Herm ondina 00 ) Reglan No Notes: Memoria 9-08 (Same as: l 13:34: Reglan) [place] 00 lidocaine No Notes: Memori a 4% topical 9-08 Patch is l film 13:32: applied to [place] 00 intact skin to cover painful area for up to 12 hours in a 24-hour period (12 hours on and 12 hours off). Please indicate the location of applicatio n site. Site 1: Remove old patch before applicatio n of new patch. (Same as Aspercreme Lidocaine Patch) lidocaine No Notes: Memori a 4% topical 9-08 Patch is l film 13:32: applied to [place] 00 intact skin to cover painful area for up to 12 hours in a 24-hour period (12 hours on and 12 hours off). Please indicate the location of applicatio n site. Site 1: Remove old patch before applicatio n of new patch. (Same as Aspercreme Lidocaine Patch) oxyCODONE 5 No Notes: Chilango jeannette mg/5 mL 9-07 (Same as: l oral 22:27: 'Roxicodon Jim solution 00 e) oxyCODONE No Notes: Memori a immediate 9-07 (Same as: l release 22:27: Roxicodone Herm ondina 00 ) oxyCODONE 5 No Notes: Chilango jeannette mg/5 mL 9-07 (Same as: l oral 22:27: 'Roxicodon Jim solution 00 e) oxyCODONE No Notes: Memori a immediate 9-07 (Same as: l release 22:27: Roxicodone Herm ondina 00 ) montelukast No Notes: Chilango jeannette 9-07 (Same l 02:00: as:Singula [place] 00 ir) montelukast No Notes: Chilango jeannette 9-07 (Same l 02:00: as:Singula [place] 00 ir) tamsulosin No Notes: Memor ia 9-06 (Same As: l 23:36: Flomax) Jim 00 "Do Not Crush" tamsulosin No Notes: Memor ia 9-06 (Same As: l 23:36: Flomax) [place] 00 "Do Not Crush" Lovenox No Notes: Memoria 9- (Same as: l 21:00: Lovenox) Lovenox No Notes: Memoria 9- (Same as: l 21:00: Lovenox) Jim 00 gabapentin No Notes: Memor ia 100 mg oral 06-21 (Same as: l capsule 19:00: Neurontin) Herm ondina gabapentin No Notes: Memor ia 100 mg oral 06-21 (Same as: l capsule 19:00: Neurontin) Herm ondina Lovenox No 40 mg, Memoria 06-21 Route: l 17:00: SUB-Q, Jim 00 Drug form: INJ, [id number], Dosing Weight 81.818, kg, Start date: 06/21/22 12:00:00 CDT, Duration: 30 day, Stop date: 07/21/22 0:00:00 CDT Lovenox No 40 mg, Memoria 06-21 Route: l 17:00: SUB-Q, Drug form: INJ, [id number], Dosing Weight 81.818, kg, Start date: 06/21/22 12:00:00 CDT, Duration: 30 day, Stop date: 07/21/22 0:00:00 CDT ferrous No Notes: Memoria sulfate - Give with l 14:04: food. "Do Not Crush" ferrous No Notes: Memoria sulfate - Give with l 14:04: food. "Do Not Crush" finasteride No Notes: Chilango jeannette 06-21 (Same as: l 14:00: Proscar) "Do Not Crush" Women of childbeari ng age should not touch or handle broken tablets [facility] 3:Reproduc tive risk Hazardous Drug -- Refer to safe handling procedure PPE Matrix Metoprolol No Notes: Memor ia Succinate 06-21 (Same as: l ER 50 mg 14:00: Toprol XL) Her gomez oral 00 May split tablet, tab, but extended do not release crush. finasteride No Notes: Chilango jeannette 9-06 (Same as: l 14:00: Proscar) Jim 00 "Do Not Crush" Women of childbeari ng age should not touch or handle broken tablets [facility] [employer] 3:Reproduc tive risk Hazardous Drug -- Refer to safe handling procedure PPE Matrix Metoprolol No Notes: Memor ia Succinate 06-21 (Same as: l ER 50 mg 14:00: Toprol XL) Her gomez oral 00 May split tablet, tab, but extended do not release crush. remove No Notes: Memoria patch 06-21 Remove l 12:00: patch 12 Jim 00 hours after applicatio n each day. remove No Notes: Memoria patch 06-21 Remove l 12:00: patch 12 Jim 00 hours after applicatio n each day. lidocaine No Notes: Memori a 4% topical 06-21 Patch is l film 00:00: applied to [place] 00 intact skin to cover painful area for up to 12 hours in a 24-hour period (12 hours on and 12 hours off). Please indicate the location of applicatio n site. Site 1: Remove old patch before applicatio n of new patch. (Same as Aspercreme Lidocaine Patch) lidocaine No Notes: Memori a 4% topical 06-21 Patch is l film 00:00: applied to [place] 00 intact skin to cover painful area for up to 12 hours in a 24-hour period (12 hours on and 12 hours off). Please indicate the location of applicatio n site. Site 1: Remove old patch before applicatio n of new patch. (Same as Aspercreme Lidocaine Patch) oxyCODONE 5 No Notes: Chilango jeannette mg/5 mL 06-20 (Same as: l oral 23:11: 'Roxicodon [place] solution 00 e) naloxone No Notes: Memoria 06-20 Same as l 23:11: Narcan Jim 00 oxyCODONE 5 No Notes: Chilango jeannette mg/5 mL 06-20 (Same as: l oral 23:11: 'Roxicodon Jim solution 00 e) naloxone No Notes: Memoria 9-05 Same as l 23:11: Narcan Jim 00 docusate-se No Notes: Chilango jeannette nna 50 9-05 (Same as l mg-8.6 mg 22:00: Senokot-S) He rmann oral tablet 00 Equiv. to [place] e. MiraLax No Notes: Memoria 9-05 Dissolve l 22:00: in 8 oz of [place] 00 water or juice. (Same as: Miralax) docusate-se No Notes: Chilango jeannette nna 50 9-05 (Same as l mg-8.6 mg 22:00: Senokot-S) He rmann oral tablet 00 Equiv. to [place] e. MiraLax No Notes: Memoria 9-05 Dissolve l 22:00: in 8 oz of [place] 00 water or juice. (Same as: Miralax) Metoprolol No TAKE 1 Memor ia Succinate 9-05 TABLET BY l ER 50 mg 21:42: MOUTH [place] oral 00 EVERY tablet, MORNING extended release Metoprolol No TAKE 1 Memor ia Succinate 9-05 TABLET BY l ER 50 mg 21:42: MOUTH Jim oral 00 EVERY tablet, MORNING extended release pantoprazol No Notes: Chilango jeannette e 9-05 Tablet l 21:30: should not Jim 00 be chewed or crushed. (Same as: Protonix) pantoprazol No Notes: Chilango jeannette e 9-05 Tablet l 21:30: should not Jim 00 be chewed or crushed. (Same as: Protonix) Pulmicort No Notes: Memori a Respules 9-05 (Same As: l 17:28: Pulmicort) Jim 00 Pulmicort No Notes: Memori a Respules 9-05 (Same As: l 17:28: Pulmicort) [place] 00 metoprolol No Notes: Memor ia tartrate 9-05 (Same as: l 17:23: Lopressor) Jim 00 metoprolol No Notes: Memor ia tartrate 9-05 (Same as: l 17:23: Lopressor) Jim 00 Symbicort No 2 Memoria 160/4.5 9-05 inhalation l inhalation 17:20: , Route: Her gomez aerosol 00 INHALATION with , Drug adapter Form: AERO/A, Dosing Weight 81.818, kg, RBID, Start date: 06/20/22 12:20:00 CDT, Duration: 30 day, Stop date: 07/20/22 8:00:00 CDT Symbicort No 2 Memoria 160/4.5 9-05 inhalation l inhalation 17:20: , Route: Her gomez aerosol 00 INHALATION with , Drug adapter Form: AERO/A, Dosing Weight 81.818, kg, RBID, Start date: 06/20/22 12:20:00 CDT, Duration: 30 day, Stop date: 07/20/22 8:00:00 CDT aspirin No Notes: Do Memor ia 9-05 not crush l 14:00: or chew. Jim (Same As: Ecotrin) aspirin No Notes: Do Memor ia 9-05 not crush l 14:00: or chew. [place] (Same As: Ecotrin) liothyronin No Notes: Chilango jeannette e 9-05 (Same as: l 11:30: Cytomel) levothyroxi No Notes: Chilango jeannette ne 9-05 Take 1 l 11:30: hour [place] 00 before or 2 hours after meal; Enteral feeds may interefere with the absorption of this medication . (Same as:Levothr oid, Synthroid) liothyronin No Notes: Chilango jeannette e 9-05 (Same as: l 11:30: Cytomel) Jim levothyroxi No Notes: Chilango jeannette ne 9-05 Take 1 l 11:30: hour [place] 00 before or 2 hours after meal; Enteral feeds may interefere with the absorption of this medication . (Same as:Levothr oid, Synthroid) heparin No Notes: Memoria 5000 9-04 porcine l units/mL 21:00: heparin Juan Jose n injectable 00 solution heparin No 5,000 Memoria 9-04 unit, l 21:00: Route: [place] 00 SUB-Q, Q8H, Dosing Weight 81.818, kg, Start date: 06/19/22 16:00:00 CDT, Duration: 30 day, Stop date: 07/19/22 8:00:00 CDT heparin 2021-0 No Notes: Memoria 5000 9-04 porcine l units/mL 21:00: heparin Juan Jose n injectable 00 solution heparin 2021-0 No 5,000 Memoria 9-04 unit, l 21:00: Route: Jim 00 SUB-Q, Q8H, Dosing Weight 81.818, kg, Start date: 06/19/22 16:00:00 CDT, Duration: 30 day, Stop date: 07/19/22 8:00:00 CDT Lactated 2021-0 No 500 mL, Memori a Ringers 9-04 500 ml/hr, l (Bolus) IV 20:16: Infuse Rashmi nn 00 Over: 1 hr, Route: IV, 500, Drug form: INJ, ONCE, Priority: STAT, Dosing Weight 81.818 kg, Start date: 06/19/22 15:16:00 CDT, Stop date: 06/19/22 15:16:00 CDT, 0 Lactated 2021-0 No 500 mL, Memori a Ringers 9-04 500 ml/hr, l (Bolus) IV 20:16: Infuse Rashmi nn 00 Over: 1 hr, Route: IV, 500, Drug form: INJ, ONCE, Priority: STAT, Dosing Weight 81.818 kg, Start date: 06/19/22 15:16:00 CDT, Stop date: 06/19/22 15:16:00 CDT, 0 folic acid 2021-0 No 1 mg, Memori a 06-19 Route: PO, l 14:00: Daily, [place] 00 Dosing Weight 81.818, kg, Start date: 06/19/22 9:00:00 CDT, Duration: 5 day, Stop date: 06/23/22 9:00:00 CDT multivitami 2021-0 No 1 tab, Chilango jeannette n 06-19 Route: PO, l 14:00: Dosing Weight 81.818, kg, Daily, Start date: 06/19/22 9:00:00 CDT, Duration: 5 day, Stop date: 06/23/22 9:00:00 CDT thiamine 2021-0 No 100 mg, Memori a 06-19 Route: PO, l 14:00: Daily, Dosing Weight 81.818, kg, Start date: 06/19/22 9:00:00 CDT, Duration: 5 day, Stop date: 06/23/22 9:00:00 CDT Vitamin B1 2021-0 No Notes: Memor ia 06-19 (Same As: l 14:00: Vitamin B1) folic acid 2021-0 No 1 mg, Memori a 06-19 Route: PO, l 14:00: Daily, Dosing Weight 81.818, kg, Start date: 06/19/22 9:00:00 CDT, Duration: 5 day, Stop date: 06/23/22 9:00:00 CDT multivitami 2021-0 No 1 tab, Chilango jeannette n 06-19 Route: PO, l 14:00: Dosing Weight 81.818, kg, Daily, Start date: 06/19/22 9:00:00 CDT, Duration: 5 day, Stop date: 06/23/22 9:00:00 CDT thiamine 2021-0 No 100 mg, Memori a 06-19 Route: PO, l 14:00: Daily, Dosing Weight 81.818, kg, Start date: 06/19/22 9:00:00 CDT, Duration: 5 day, Stop date: 06/23/22 9:00:00 CDT Vitamin B1 2021-0 No Notes: Memor ia 06-19 (Same As: l 14:00: Vitamin B1) Lactated 2021-0 No 500 mL, Memori a Ringers 06-19 Rate: 1000 l Injection 02:43: ml/hr, Juan Jose n IV 00 Infuse over: 30 minutes, Route: IV, Total Volume: 500, Start date: 06/18/22 21:43:00 CDT, Stop date: 06/18/22 21:43:00 CDT, 0 Lactated 2021-0 No 500 mL, Memori a Ringers 06-19 Rate: 1000 l Injection 02:43: ml/hr, Juan Jose n IV 00 Infuse over: 30 minutes, Route: IV, Total Volume: 500, Start date: 06/18/22 21:43:00 CDT, Stop date: 06/18/22 21:43:00 CDT, 0 LR IV 500 No 500 mL, Memor ia mL 06-19 Rate: 999 l 02:35: ml/hr, Jim 00 Infuse over: 0.5 hr, Route: IV, Dosing Weight 81.818 kg, Total Volume: 500, Start date: 06/18/22 21:35:00 CDT, Duration: 30 day, Stop date: 07/18/22 21:34:00 CDT, BSA: 2.06 m2 LR IV 500 No 500 mL, Memor ia mL 06-19 Rate: 999 l 02:35: ml/hr, [place] 00 Infuse over: 0.5 hr, Route: IV, Dosing Weight 81.818 kg, Total Volume: 500, Start date: 06/18/22 21:35:00 CDT, Duration: 30 day, Stop date: 07/18/22 21:34:00 CDT, BSA: 2.06 m2 methylPREDN No Notes: Chilango jeannette ISolone 06-18 (Same l SODium 22:42: as:Solu-ME Rashmi nn SUCCinate 00 DROL, A-Methapre d) Benadryl No Notes: Memoria 06-18 (Same as: l 22:42: Benadryl) Jim 00 methylPREDN No Notes: Chilango jeannette ISolone 06-18 (Same l SODium 22:42: as:Solu-ME Rashmi nn SUCCinate 00 DROL, A-Methapre d) Benadryl No Notes: Memoria 06-18 (Same as: l 22:42: Benadryl) Jim Lactated No 1,000 mL, Chilango jeannette Ringers IV 06-18 Rate: 60 l 1,000 mL 21:47: ml/hr, [place] Infuse over: 16.7 hr, Route: IV, Dosing Weight 81.818 kg, Total Volume: 1,000, Start date: 06/18/22 16:47:00 CDT, Duration: 30 day, Stop date: 07/18/22 16:46:00 CDT, BSA: 2.06 m2, 0 Lactated No 1,000 mL, Chilango jeannette Ringers IV 06-18 Rate: 60 l 1,000 mL 21:47: ml/hr, Jim 00 Infuse over: 16.7 hr, Route: IV, Dosing Weight 81.818 kg, Total Volume: 1,000, Start date: 06/18/22 16:47:00 CDT, Duration: 30 day, Stop date: 07/18/22 16:46:00 CDT, BSA: 2.06 m2, 0 morphine No Notes: Memoria Sulfate 06-18 (Same l 20:04: as:MORPhin Jim 00 e Sulfate) morphine No Notes: Memoria Sulfate 06-18 (Same l 20:04: as:MORPhin Jim 00 e Sulfate) morphine No Notes: Memoria Sulfate 06-18 (Same l 20:03: as:MORPhin Jim 00 e Sulfate) morphine No Notes: Memoria Sulfate 06-18 (Same l 20:03: as:MORPhin Jim 00 e Sulfate) acetaminoph No Notes: Max Memoria en 06-18 acetaminop l 16:39: hen = [place] 00 4000mg/day (4 gm/day). (Same as: Tylenol) gabapentin No Notes: Memor ia 06-18 (Same as: l 16:39: Neurontin) oxyCODONE No Notes: Memori a immediate 06-18 (Same as: l release 16:39: Roxicodone Herm ondina 00 ) acetaminoph No Notes: Max Memoria en 06-18 acetaminop l 16:39: hen = [place] 00 4000mg/day (4 gm/day). (Same as: Tylenol) gabapentin No Notes: Memor ia 06-18 (Same as: l 16:39: Neurontin) [place] 00 oxyCODONE No Notes: Memori a immediate 06-18 (Same as: l release 16:39: Roxicodone Herm ondina 00 ) DuoNeb No Notes: Memoria inhalation 06-18 (Same as: l solution 15:30: Duoneb) Juan Jose n DuoNeb 2021-0 No Notes: Memoria inhalation 06-18 (Same as: l solution 15:30: Duoneb) Juan Jose morphine 2021-0 No 4 mg, Memoria Sulfate 06-18 Route: l 14:16: IVP, ONCE, Dosing Weight 79.119, kg, Priority: STAT, Start date: 06/18/22 9:16:00 CDT, Stop date: 06/18/22 9:16:00 CDT morphine 2021-0 No 4 mg, Memoria Sulfate 06-18 Route: l 14:16: IVP, ONCE, Dosing Weight 79.119, kg, Priority: STAT, Start date: 06/18/22 9:16:00 CDT, Stop date: 06/18/22 9:16:00 CDT folic acid 0 No Notes: Memor ia 06-18 (Same as: l 14:00: Folvite) thiamine 2021-0 No 500 mg, Memori a 06-18 Route: PO, l 14:00: Daily, Dosing Weight 79.119, kg, Start date: 06/18/22 9:00:00 CDT, Duration: 5 day, Stop date: 06/22/22 9:00:00 CDT folic acid 2021-0 No Notes: Memor ia 06-18 (Same as: l 14:00: Folvite) thiamine 2021-0 No 500 mg, Memori a 06-18 Route: PO, l 14:00: Daily, Dosing Weight 79.119, kg, Start date: 06/18/22 9:00:00 CDT, Duration: 5 day, Stop date: 06/22/22 9:00:00 CDT Omnipaque 2021-0 No 100 mL, Memor ia 350 mg/mL 06-18 Route: l 13:12: IVP, Drug Form: SOLN, Dosing Weight 79.119, kg, ONCALL, STAT, Start date: 06/18/22 8:12:00 CDT, Duration: 1 doses or times, Dose = 2.2ml/kg, Max dose = 150ml -- "To be infused by Radiology Staff ONLY" Omnipaque No 100 mL, Memor ia 350 mg/mL 06-18 Route: l 13:12: IVP, Drug Form: SOLN, Dosing Weight 79.119, kg, ONCALL, STAT, Start date: 06/18/22 8:12:00 CDT, Duration: 1 doses or times, Dose = 2.2ml/kg, Max dose = 150ml -- "To be infused by Radiology Staff ONLY" thiamine + No Notes: Memor ia Sodium 06-18 (Same As: l Chloride 11:14: Vitamin Juan Jose n 0.9% IV B1) mL thiamine + No Notes: Memor ia Sodium 06-18 (Same As: l Chloride 11:14: Vitamin Juan Jose n 0.9% IV B1) mL methylPREDN No Notes: Chilango jeannette ISolone 06-18 (Same l SODium 11:00: as:Solu-ME Rashmi nn SUCCinate 00 DROL, A-Methapre d) diphenhydrA No Notes: Chilango jeannette MINE 06-18 (Same as: l 11:00: Benadryl) methylPREDN No Notes: Chilango jeannette ISolone 06-18 (Same l SODium 11:00: as:Solu-ME Rashmi nn SUCCinate 00 DROL, A-Methapre d) diphenhydrA No Notes: Chilango jeannette MINE 06-18 (Same as: l 11:00: Benadryl) Benadryl No Notes: Memoria 06-18 (Same as: l 10:42: Benadryl) [place] 00 Benadryl No Notes: Memoria 06-18 (Same as: l 10:42: Benadryl) Jim 00 Isolyte S No Notes: Memori a PH-7.4 06-18 (Same as: l (Bolus) IV 09:38: Isolyte S He rmann 00 PH7.4, Normosol-R PH 7.4, Plasma-Lyt e A ) Isolyte S No Notes: Memori a PH-7.4 06-18 (Same as: l (Bolus) IV 09:38: Isolyte S Harvey rmann 00 PH7.4, Normosol-R PH 7.4, Plasma-Lyt e A ) Isolyte S No Notes: Memori a PH-7.4 06-18 (Same as: l (Bolus) IV 09:34: Isolyte S Harvey rmann 00 PH7.4, Normosol-R PH 7.4, Plasma-Lyt e A ) Isolyte S No Notes: Memori a PH-7.4 06-18 (Same as: l (Bolus) IV 09:34: Isolyte S He rmann 00 PH7.4, Normosol-R PH 7.4, Plasma-Lyt e A ) DuoNeb No Notes: Memoria inhalation 06-18 (Same as: l solution 08:36: Duoneb) Juan Jose n 00 DuoNeb No Notes: Memoria inhalation 06-18 (Same as: l solution 08:36: Duoneb) Juan Jose n morphine 2021-0 No 4 mg, Memoria Sulfate 06-18 Route: l 08:33: IVP, ONCE, Dosing Weight 79.119, kg, Priority: STAT, Start date: 06/18/22 3:33:00 CDT, Stop date: 06/18/22 3:33:00 CDT Zofran 2021-0 No 4 mg, Memoria 06-18 Route: l 08:33: IVP, Drug Jim 00 form: INJ, ONCE, Dosing Weight 79.119, kg, Priority: STAT, Start date: 06/18/22 3:33:00 CDT, Stop date: 06/18/22 3:33:00 CDT morphine 2021-0 No 4 mg, Memoria Sulfate 06-18 Route: l 08:33: IVP, ONCE, [place] 00 Dosing Weight 79.119, kg, Priority: STAT, Start date: 06/18/22 3:33:00 CDT, Stop date: 06/18/22 3:33:00 CDT Zofran 2021-0 No 4 mg, Memoria 06-18 Route: l 08:33: IVP, Drug [place] 00 form: INJ, ONCE, Dosing Weight 79.119, kg, Priority: STAT, Start date: 06/18/22 3:33:00 CDT, Stop date: 06/18/22 3:33:00 CDT lactobacill No Notes: Chilango jeannette us 2-02 Same as l rhamnosus 15:00: Culturellmelody Gabriel ann GG budesonide- No Notes: Chilango jeannette formoterol 2-02 (Same as: l 160 mcg-4.5 15:00: Symbicort) [place] mcg/inh 00 WASTE: inhalation Aerosol - aerosol Return to with Pharmacy adapter Streptococc No Notes: Chilango jeannette us 2-02 Shake well l pneumoniae 15:00: prior to Her gomez serotype 1 00 use (Same capsular as: antigen Prevnar diphtheria 13) [id number] protein conjugate vaccine / Streptococc us pneumoniae serotype 14 capsular antigen diphtheria [id number] protein conjugate vaccine / Streptococc us pneumoniae serotype 18C capsular antigen d lactobacill No Notes: Chilango jeannette us 2-02 Same as l rhamnosus 15:00: Culturellmelody [facility] GG budesonide- No Notes: Chilango jeannette formoterol 2-02 (Same as: l 160 mcg-4.5 15:00: Symbicort) [place] mcg/inh 00 WASTE: inhalation Aerosol - aerosol Return to with Pharmacy adapter Streptococc No Notes: Chilango jeannette us 2-02 Shake well l pneumoniae 15:00: prior to Her gomez serotype 1 00 use (Same capsular as: antigen Prevnar diphtheria 13) [id number] protein conjugate vaccine / Streptococc us pneumoniae serotype 14 capsular antigen diphtheria [id number] protein conjugate vaccine / Streptococc us pneumoniae serotype 18C capsular antigen d Levothroid No Notes: Memor ia 2-02 Take 1 l 12:30: hour [place] 00 before or 2 hours after meal; Enteral feeds may interefere with the absorption of this medication . (Same as:Levothr oid, Synthroid) Cytomel No Notes: Memoria 2-02 (Same as: l 12:30: Cytomel) [place] 00 Levothroid No Notes: Memor ia 2-02 Take 1 l 12:30: hour Jim 00 before or 2 hours after meal; Enteral feeds may interefere with the absorption of this medication . (Same as:Levothr oid, Synthroid) Cytomel No Notes: Memoria 2-02 (Same as: l 12:30: Cytomel) [place] 00 aspirin 81 No Notes: Do Me moria mg tablet, 2-02 not crush l enteric 03:00: or chew. Juan Jose n coated 00 (Same As: Ecotrin) Singulair No Notes: Memori a 2-02 (Same l 03:00: as:Singula Jim 00 ir) aspirin 81 No Notes: Do Me moria mg tablet, 2-02 not crush l enteric 03:00: or chew. Juan Jose n coated 00 (Same As: Ecotrin) Singulair No Notes: Memori a 2-02 (Same l 03:00: as:Singula [place] 00 ir) Flomax No Notes: Memoria 2-02 (Same As: l 00:50: Flomax) "Do Not Crush" metoprolol No Notes: Memor ia 2-02 (Same as: l 00:50: Toprol XL) Do Not Crush Proscar No Notes: Memoria 2-02 (Same as: l 00:50: Proscar) [place] 00 "Do Not Crush" Women of childbeari ng age should not touch or handle broken tablets Flomax No Notes: Memoria 2-02 (Same As: l 00:50: Flomax) Jim 00 "Do Not Crush" metoprolol No Notes: Memor ia 2-02 (Same as: l 00:50: Toprol XL) [place] 00 Do Not Crush Proscar No Notes: Memoria 2-02 (Same as: l 00:50: Proscar) Jim 00 "Do Not Crush" Women of childbeari ng age should not touch or handle broken tablets cetirizine No Notes: Memor ia 2-01 (Same As: l 23:53: Zyrtec) cetirizine No Notes: Memor ia 2-01 (Same As: l 23:53: Zyrtec) metoprolol 0 Yes 25 mg = 1 Me moria 25 mg oral 2-01 tab, PO, l tablet, 22:22: Daily, # Juan Jose n extended 00 30 tab, 0 release Refill(s) metoprolol Yes 25 mg = 1 Me moria 25 mg oral 2-01 tab, PO, l tablet, 22:22: Daily, # Juan Jose n extended 00 30 tab, 0 release Refill(s) Acetaminoph No Notes: Chilango jeannette en 325 MG / 11-16 (Same as: l Hydrocodone 20:37: [place] Rashmi nn Bitartrate 00 325/5) Do 5 MG Oral not exceed Tablet 4gm/day of [[place] acetaminop 5/325] hen. Acetaminoph No Notes: Chilango jeannette en 325 MG / 11-16 (Same as: l Hydrocodone 20:37: [place] Rashmi nn Bitartrate 00 325/5) Do 5 MG Oral not exceed Tablet 4gm/day of [[place] acetaminop 5/325] hen. Acetaminoph No Notes: Ch[place] jeannette en 325 MG / 11-16 (Same as: l Hydrocodone 20:36: [place] Rashmi nn Bitartrate 00 325/5) Do 5 MG Oral not exceed Tablet 4gm/day of [[place] acetaminop 5/325] hen. Acetaminoph No Notes: Chil[place] jeannette en 325 MG / 11-16 (Same as: l Hydrocodone 20:36: [place] Rashmi nn Bitartrate 00 325/5) Do 5 MG Oral not exceed Tablet 4gm/day of [[place] acetaminop 5/325] hen. ketOROLAC No 60 mg, Memori a 30 mg/mL 11-16 Route: IM, l injectable 20:01: Drug form: H ermann solution 00 INJ, ONCE, Dosing Weight 79.119, kg, Start date: 11/16/17 14:01:00 [employer], Stop date: 11/16/17 14:01:00 [employer] ketOROLAC No 60 mg, Memori a 30 mg/mL 11-16 Route: IM, l injectable 20:01: Drug form: H ermann solution 00 INJ, ONCE, Dosing Weight 79.119, kg, Start date: 11/16/17 14:01:00 [employer], Stop date: 11/16/17 14:01:00 [employer] Demerol HCl 2018-0 No 25 mg, Chilango jeannette 2-01 Route: l 19:45: IVP, ONCE, Dosing Weight 79.119, kg, PRN Pain Score 7-10, Start date: 11/16/17 13:45:00 [employer] Demerol HCl 2018-0 No 25 mg, Chilango jeannette 2- Route: l 19:45: IVP, ONCE, Dosing Weight 79.119, kg, PRN Pain Score 7-10, Start date: 11/16/17 13:45:00 [employer] Fentanyl 2018-0 No Notes: Memoria 2-01 (Same as: l 19:03: Sublimaze) Preservati ve free. Fentanyl 2018-0 No Notes: Memoria 2-01 (Same as: l 19:03: Sublimaze) Preservati ve free. Ondansetron 2017-0 No 4 mg, Memor ia 2- Route: l 19:01: IVP, ONCE, Dosing Weight 79.119, kg, PRN Nausea & Vomiting, Start date: 11/16/17 13:01:00 [employer] Naloxone 2017-0 No 0.4 mg, Memori a 2-01 Route: l 19:01: IVP, Q2MIN, Dosing Weight 79.119, kg, PRN Narcotic Reversal, Start date: 11/16/17 13:01:00 [employer], Duration: 8 doses or times, Stop date: Limited # of times Flumazenil 2017-0 No 0.2 mg, Chilango jeannette 2-01 Route: l 19:01: IVP, PRN, Dosing Weight 79.119, kg, PRN Benzodiaze pine Reversal, Initial dose, Start date: 11/16/17 13:01:00 [employer], Duration: 30 day, Stop date: 12/16/17 13:00:00 [employer] Fentanyl 2018-0 No 25 Memoria 2-01 microgram, l 19:01: Route: IVP, Q5Min, Dosing Weight 79.119, kg, PRN Pain Score 4-6, Priority: Routine, Start date: 11/16/17 13:01:00 [employer], Duration: 4 doses or times, Stop date: Limited # of times Labetalol 2018-0 No 10 mg, Memori a 2- Route: l 19:01: IVP, Jim 00 Q5Min, Dosing Weight 79.119, kg, PRN Elevated BP, Start date: 11/16/17 13:01:00 [employer], Duration: 5 doses or times, Stop date: Limited # of times Ondansetron 2018-0 No 4 mg, Memor ia 2- Route: l 19:01: IVP, ONCE, Jim 00 Dosing Weight 79.119, kg, PRN Nausea & Vomiting, Start date: 11/16/17 13:01:00 [employer] Naloxone 2018-0 No 0.4 mg, Memori a 2- Route: l 19:01: IVP, Jim 00 Q2MIN, Dosing Weight 79.119, kg, PRN Narcotic Reversal, Start date: 11/16/17 13:01:00 [employer], Duration: 8 doses or times, Stop date: Limited # of times Flumazenil 2018-0 No 0.2 mg, Ch[place] jeannette 2- Route: l 19:01: IVP, PRN, [place] 00 Dosing Weight 79.119, kg, PRN Benzodiaze pine Reversal, Initial dose, Start date: 11/16/17 13:01:00 [employer], Duration: 30 day, Stop date: 12/16/17 13:00:00 [employer] Fentanyl 2018-0 No 25 Memoria 2-01 microgram, l 19:01: Route: [place] 00 IVP, Q5Min, Dosing Weight 79.119, kg, PRN Pain Score 4-6, Priority: Routine, Start date: 11/16/17 13:01:00 [employer], Duration: 4 doses or times, Stop date: Limited # of times Labetalol 2018-0 No 10 mg, Memori a 2- Route: l 19:01: IVP, Jim 00 Q5Min, Dosing Weight 79.119, kg, PRN Elevated BP, Start date: 11/16/17 13:01:00 [employer], Duration: 5 doses or times, Stop date: Limited # of times Oxycodone 2018-0 No 10 mg, Memori a Hydrochlori 2-01 Route: PO, l de 5 MG 18:33: Drug form: Herm ondina Oral Tablet 00 TAB, ONCE, Dosing Weight 79.119, kg, PRN Pain Score 7-10, Start date: 11/16/17 12:33:00 [employer] Oxycodone 2018-0 No 10 mg, Memori a Hydrochlori 2- Route: PO, l de 5 MG 18:33: Drug form: Herm ondina Oral Tablet 00 TAB, ONCE, Dosing Weight 79.119, kg, PRN Pain Score 7-10, Start date: 11/16/17 12:33:00 [employer] Oxycodone 2017-0 No Notes: Memori a Hydrochlori 2- (Same as: l de 5 MG 18:31: Roxicodone Herm ondina Oral Tablet 00 ) Oxycodone 2017-0 No Notes: Memori a Hydrochlori 2-01 (Same as: l de 5 MG 18:31: Roxicodone Herm ondina Oral Tablet 00 ) ondansetron 2017-0 No Route: IV, Memoria (ANES) 2 Drug form: l 17:42: INJ, ONCE, Stop date: 11/16/17 11:42:00 [employer] fentaNYL 2017-0 No Route: IV, Mem oria (ANES) 2 Drug form: l 17:42: INJ, ONCE, Stop date: 11/16/17 11:42:00 [employer] lidocaine 2017-0 No Route: IV, Me moria (ANES) 2 Drug form: l 17:42: INJ, ONCE, Stop date: 11/16/17 11:42:00 [employer] ondansetron 2017-0 No Route: IV, Memoria (ANES) 2- Drug form: l 17:42: INJ, ONCE, Stop date: 11/16/17 11:42:00 [employer] fentaNYL 2018-0 No Route: IV, Mem oria (ANES) 2- Drug form: l 17:42: INJ, ONCE, Stop date: 11/16/17 11:42:00 [employer] lidocaine 2018-0 No Route: IV, Me moria (ANES) 2- Drug form: l 17:42: INJ, ONCE, Stop date: 11/16/17 11:42:00 [employer] propofol 2018-0 No Route: IV, Mem oria (ANES) 10 11-16 Drug form: l mg 17:01: INJ, Start date: 11/16/17 11:01:00 [employer], Stop date: 11/16/17 12:01:00 [employer] propofol 2018-0 No Route: IV, Mem oria (ANES) 10 11-16 Drug form: l mg 17:01: INJ, Start date: 11/16/17 11:01:00 [employer], Stop date: 11/16/17 12:01:00 [employer] ceFAZolin 2018-0 No Route: IV, Me moria (ANES) 1000 11-16 Drug form: l mg 17:00: INJ, Start date: 11/16/17 11:00:00 [employer], Stop date: 11/16/17 12:00:00 [employer] ceFAZolin 2018-0 No Route: IV, Me moria (ANES) 1000 11-16 Drug form: l mg 17:00: INJ, Start date: 11/16/17 11:00:00 [employer], Stop date: 11/16/17 12:00:00 [employer]ENT Lactated 2018-0 No Route: IV, Mem oria Ringers 2-01 Total l Injection 16:52: Volume: Rashmi nn IV (ANES) 00 1,000, 1000 mL Start date: 11/16/17 10:52:00 [employer], Stop date: 11/16/17 11:52:00 [employer]ENT Lactated 2018-0 No Route: IV, Mem oria Ringers 2-01 Total l Injection 16:52: Volume: Rashmi nn IV (ANES) 00 1,000, 1000 mL Start date: 11/16/17 10:52:00 [employer], Stop date: 11/16/17 11:52:00 [employer]ENT Calcium 2018-0 No 1,000 mL, Memor ia Chloride 11-16 Rate: 25 l 0.0014 15:38: ml/hr, MEQ/ML / 00 Infuse Potassium over: 40 Chloride hr, Route: 0.004 IV, Dosing MEQ/ML / Weight Sodium 79.119 kg, Chloride Total 0.103 Volume: MEQ/ML / 1,000, Sodium Start Lactate date: 0.028 11/16/17 MEQ/ML 9:38:00 Injectable [employer], Solution Duration: 30 day, Stop date: 12/16/17 9:37:00 [employer], 1.99, m2 Calcium 2018-0 No 1,000 mL, Memor ia Chloride 2-01 Rate: 25 l 0.0014 15:38: ml/hr, Jim MEQ/ML / 00 Infuse Potassium over: 40 Chloride hr, Route: 0.004 IV, Dosing MEQ/ML / Weight Sodium 79.119 kg, Chloride Total 0.103 Volume: MEQ/ML / 1,000, Sodium Start Lactate date: 0.11/16/17 MEQ/ML 9:38:00 Injectable [employer], Solution Duration: 30 day, Stop date: 12/16/17 9:37:00 [employer], 1.99, m2 Symbicort 2018-0 Yes 2 puff, Memor ia 160/4.5 31 INHALER, l inhalation 17:31: BID, # 1 Her gomez aerosol 00 ea, 3 with Refill(s) adapter montelukast 2018-0 Yes 10 mg = 1 M emoria 10 mg oral -31 tab, PO, l tablet 17:31: Bedtime, # Rashmi nn 00 30 tab, 0 Refill(s) Leisa 2018-0 Yes PO, 0 Memoria -31 Refill(s) l 17:31: [place] Symbicort 2018-0 Yes 2 puff, Memor ia 160/4.5 31 INHALER, l inhalation 17:31: BID, # 1 Her gomez aerosol 00 ea, 3 with Refill(s) adapter montelukast 2018-0 Yes 10 mg = 1 M emoria 10 mg oral 1-31 tab, PO, l tablet 17:31: Bedtime, # Rashmi nn 00 30 tab, 0 Refill(s) Leisa 2018-0 Yes PO, 0 Memoria 1-31 Refill(s) l 17:31: [place] 00 levothyroxi 2018-0 Yes 100 Memori a ne 100 mcg 1-31 microgram l (0.1 mg) 17:30: = 1 tab, Rashmi nn oral tablet 00 PO, Daily, # 30 tab, 0 Refill(s) levothyroxi 2018-0 Yes 100 Memori a ne 100 mcg 1-31 microgram l (0.1 mg) 17:30: = 1 tab, Arshmi nn oral tablet 00 PO, Daily, # 30 tab, 0 Refill(s) Metoprolol 2015-10 No Metoprolol M emoria succinate 0-08 succinate l ER 14:00: ER, 25 mg, Route: PO, Daily, 07/23/16 9:00:00 CDT, Duration: 30 day, Stop date: 08/21/16 9:00:00 [employer] Triiodothyr 2015-10 No Notes: Chilango jeannette onine 0-08 (Same as: l 14:00: Cytomel) metoprolol 2015-10 No Notes: Memor ia extended 0-08 (Same as: l release 14:00: Toprol XL) Do Not Crush Finasteride 2015-10 No 5 mg, 1 Mem oria 0-08 tab, l 14:00: Route: PO, [place] 00 Drug form: TAB, Daily, Dosing Weight 81.2, kg, Start date: 07/23/16 9:00:00 CDT, Duration: 30 day, Stop date: 08/21/16 9:00:00 [employer] Vitamin B 2015-10 No Notes: Memori a 12 0-08 (Same As: l 14:00: Vitamin B-12) Vitamin D3 2015-10 No Notes: Memor ia 1000 intl 0-08 Same as : l units oral 14:00: Vitamin D3 H ermann tablet Aspirin 2015-10 No 81 mg, 1 Memori a Enteric 0-08 tab, l Coated 14:00: Route: PO, Rashmi Drug form: ECTAB, Daily, Dosing Weight 81.2, kg, Start date: 07/23/16 9:00:00 CDT, Duration: 30 day, Stop date: 08/21/16 9:00:00 [employer] Docusate 2015-10 No Notes: Memoria 0-08 (Same as: l 14:00: Colace) (Do Not Crush) Metoprolol 2015-10 No Metoprolol M emoria succinate 0-08 succinate l ER 14:00: ER, 25 mg, Route: PO, Daily, 07/23/16 9:00:00 CDT, Duration: 30 day, Stop date: 08/21/16 9:00:00 [employer] Triiodothyr 2015-10 No Notes: [place] jeannette onine 0-08 (Same as: l 14:00: Cytomel) [place] metoprolol 2015-10 No Notes: Memor ia extended 0-08 (Same as: l release 14:00: Toprol XL) Herm ondina Do Not Crush Finasteride 2015-10 No 5 mg, 1 Mem oria 0-08 tab, l 14:00: Route: PO, [place] 00 Drug form: TAB, Daily, Dosing Weight 81.2, kg, Start date: 07/23/16 9:00:00 CDT, Duration: 30 day, Stop date: 08/21/16 9:00:00 [employer] Vitamin B 2015-10 No Notes: Memori a 12 0-08 (Same As: l 14:00: Vitamin Jim 00 B-12) Vitamin D3 2015-10 No Notes: Memor ia 1000 intl 0-08 Same as : l units oral 14:00: Vitamin D3 H ermann tablet 00 Aspirin 2015-10 No 81 mg, 1 Memori a Enteric 0-08 tab, l Coated 14:00: Route: PO, Rashmi nn 00 Drug form: ECTAB, Daily, Dosing Weight 81.2, kg, Start date: 07/23/16 9:00:00 CDT, Duration: 30 day, Stop date: 08/21/16 9:00:00 [employer] Docusate 2015-10 No Notes: Memoria 0-08 (Same as: l 14:00: Colace) (Do Not Crush) acetaminoph 2015-10 Yes 100.4 F, M emoria en 325 mg 0-08 # 30 tab, l oral tablet 13:04: 0 Juan Jose n 00 Refill(s) baclofen 10 2015-10 Yes 10 mg = 1 M emoria mg oral 0-08 tab, PO, l tablet 13:04: Q8H-05, [place] 00 PRN as needed for muscle spasm, # 42 tab, 0 Refill(s) Acetaminoph 2015-10 Yes 1 tab, PO, Memoria en 300 MG / 0-08 Q6H, PRN l Codeine 13:04: pain, X 7 Rashmi nn Phosphate 00 day, # 28 30 MG Oral tab, 0 Tablet Refill(s) acetaminoph 2015-10 Yes 100.4 F, M emoria en 325 mg 0-08 # 30 tab, l oral tablet 13:04: 0 Juan Jose n 00 Refill(s) baclofen 10 2015-10 Yes 10 mg = 1 M emoria mg oral 0-08 tab, PO, l tablet 13:04: Q8H-05, Jim 00 PRN as needed for muscle spasm, # 42 tab, 0 Refill(s) Acetaminoph 2015-10 Yes 1 tab, PO, Memoria en 300 MG / 0-08 Q6H, PRN l Codeine 13:04: pain, X 7 Rashmi nn Phosphate 00 day, # 28 30 MG Oral tab, 0 Tablet Refill(s) Flomax 2015-10 No 0.4 mg, 1 Memori a 0-08 cap, l 02:00: Route: PO, Drug form: CAP, Bedtime, Dosing Weight 81.2, kg, Start date: 07/22/16 21:00:00 CDT, Duration: 30 day, Stop date: 08/20/16 21:00:00 CDT Flomax 2015-10 No 0.4 mg, 1 Memori a 0-08 cap, l 02:00: Route: PO, Drug form: CAP, Bedtime, Dosing Weight 81.2, kg, Start date: 07/22/16 21:00:00 CDT, Duration: 30 day, Stop date: 08/20/16 21:00:00 CDT Enoxaparin 2015-10 No Notes: Memor ia 0-07 (Same as: l 23:00: Lovenox) Enoxaparin 2015-10 No Notes: Memor ia 0-07 (Same as: l 23:00: Lovenox) Baclofen 2015-10 No Notes: Memoria 0-07 (Same As: l 22:37: Lioresal) Baclofen 2015-10 No Notes: Memoria 0-07 (Same As: l 22:37: Lioresal) Tramadol 2015-10 No 50 mg, 1 Memor ia 0-07 tab, l 22:32: Route: PO, Drug form: TAB, Q4H, Dosing Weight 81.2, kg, PRN Pain Score 1-3, Start date: 07/22/16 17:32:00 CDT, Duration: 30 day, Stop date: 08/21/16 17:31:00 [employer] Tramadol 2015-10 No 50 mg, 1 Memor ia 0-07 tab, l 22:32: Route: PO, [place] 00 Drug form: TAB, Q4H, Dosing Weight 81.2, kg, PRN Pain Score 1-3, Start date: 07/22/16 17:32:00 CDT, Duration: 30 day, Stop date: 08/21/16 17:31:00 [employer] Acetaminoph 2015-10 No Notes: [place] jeannette en 325 MG / 0-07 (Same as: l Hydrocodone 22:23: [place] Rashmi nn Bitartrate 00 325/5) Do 5 MG Oral not exceed Tablet 4gm/day of acetaminop hen. Acetaminoph 2015-10 No Notes: Do M emoria en 0-07 not exceed l 22:23: 4 gm/day. [place] 00 (Same as: Tylenol) Ondansetron 2015-10 No Notes: [place] jeannette 0-07 (Same as: l 22:23: Zofran) Jim 00 MEDICATION WASTE Product Size: 4 mg Product Wasted: ___ mg Morphine 2015-10 No Notes: Memoria 0-07 (Same l 22:23: as:MORPhin Jim 00 e Sulfate) Acetaminoph 2015-10 No Notes: [place] jeannette en 325 MG / 0-07 (Same as: l Hydrocodone 22:23: [place] Rashmi nn Bitartrate 00 325/5) Do 5 MG Oral not exceed Tablet 4gm/day of acetaminop hen. Acetaminoph 2015-10 No Notes: Do M emoria en 0-07 not exceed l 22:23: 4 gm/day. [place] 00 (Same as: Tylenol) Ondansetron 2015-10 No Notes: [place] jeannette 0-07 (Same as: l 22:23: Zofran) [place] 00 MEDICATION WASTE Product Size: 4 mg Product Wasted: ___ mg Morphine 2015-10 No Notes: Memoria 0-07 (Same l 22:23: as:MORPhin Jim 00 e Sulfate) liothyronin 2015-10 Yes 5 Memori a e 5 mcg 0-07 microgram l oral tablet 22:03: = 1 tab, He rmann 00 PO, Daily, # 30 tab, 0 Refill(s) Aspirin 2015-10 Yes 81 mg = 1 Memor ia Enteric 0-07 tab, PO, l Coated 81 22:03: Daily, 0 Herm ondina mg oral 00 Refill(s) delayed release tablet Culturelle 2015-10 Yes 1 cap, PO, M emoria Digestive 0-07 Daily, 0 l Health oral 22:03: Refill(s) H ermann capsule 00 Tamsulosin 2015-10 Yes 0.4 mg = 1 M emoria hydrochlori 0-07 cap, PO, l de 0.4 MG 22:03: Bedtime, # He rmann Oral 00 30 cap, 0 Capsule Refill(s) [Flomax] Non-Formula 2015-10 Yes 25 mg =, Me moria ry Home 0-07 PO, Daily, l Medication 22:03: Refill(s) He rmann 00 0 Vitamin D3 2015-10 Yes 1,000 Memori a 1000 intl 0-07 IntlUnit = l units oral 22:03: 1 cap, PO, H ermann capsule 00 Daily, # 100 cap, 0 Refill(s) finasteride 2015-10 Yes 5 mg = 1 Me moria 5 mg oral 0-07 tab, PO, l tablet 22:03: Daily, # [place] 00 30 tab, 0 Refill(s) Vitamin 2015-10 Yes 1,000 Memoria B-12 1000 0-07 microgram l mcg oral 22:03: = 1 tab, Rashmi nn tablet 00 PO, Daily, # 30 tab, 0 Refill(s) liothyronin 2015-10 Yes 5 Memori a e 5 mcg 0-07 microgram l oral tablet 22:03: = 1 tab, He rmann 00 PO, Daily, # 30 tab, 0 Refill(s) Aspirin 2015-10 Yes 81 mg = 1 Memor ia Enteric 0-07 tab, PO, l Coated 81 22:03: Daily, 0 Herm ondina mg oral 00 Refill(s) delayed release tablet Culturelle 2015-10 Yes 1 cap, PO, M emoria Digestive 0-07 Daily, 0 l Health oral 22:03: Refill(s) H ermann capsule 00 Tamsulosin 2015-10 Yes 0.4 mg = 1 M emoria hydrochlori 0-07 cap, PO, l de 0.4 MG 22:03: Bedtime, # He rmann Oral 00 30 cap, 0 Capsule Refill(s) [Flomax] Non-Formula 2015-10 Yes 25 mg =, Me moria ry Home 0-07 PO, Daily, l Medication 22:03: Refill(s) He rmann 00 0 Vitamin D3 2015-10 Yes 1,000 Memori a 1000 intl 0-07 IntlUnit = l units oral 22:03: 1 cap, PO, H ermann capsule 00 Daily, # 100 cap, 0 Refill(s) finasteride 2015-10 Yes 5 mg = 1 Me moria 5 mg oral 0-07 tab, PO, l tablet 22:03: Daily, # Jim 00 30 tab, 0 Refill(s) Vitamin 2015-10 Yes 1,000 Memoria B-12 1000 0-07 microgram l mcg oral 22:03: = 1 tab, Rashmi nn tablet 00 PO, Daily, # 30 tab, 0 Refill(s) aspirin 81 Yes 81mg Take 81 mg U nivers mg chewable 3-22 by mouth ity of tablet 13:44: daily. [address] vitamin Yes 1000ug Take 1,000 Un mariama B-12 3-22 mcg by ity of (VITAMIN 13:44: mouth [place] B-12) 1,000 33 daily. Medica l mcg tablet Branch cholecalcif Yes 1000U Take 1,000 Univers [place], 3-22 Units by ity of vitamin D3, 13:44: mouth [place] (VITAMIN 33 daily. Medical D3) 1,000 Branch unit tablet LACTOBACILL Yes Take by Uni vers US 3-22 mouth ity of RHAMNOSUS 13:44: daily. [place] GG 33 Medical (CULTURELLE Branch ORAL) atorvastati Yes 10mg Take 10 mg Univers n (LIPITOR) 3-22 by mouth ity of 10 mg 13:44: daily. [place] tablet Medical Branch ERGOCALCIFE Yes 1000U Take 1,000 Univers ROL, 3-22 Units by ity of VITAMIN D2, 13:44: [facility]. [facility] D 33 Medical ORAL) Branch tamsulosin Yes [id number] .4mg Take 1 Cap [facility] (FLOMAX) 3-22 by mouth ity of 0.4 mg 24 00:00: daily. [place] hr capsule 00 [facility] levothyroxi Yes [id number] 88ug Take 1 Tab [facility] ne 3-22 by mouth ity of (SYNTHROID) 00:00: every [place] 88 mcg 00 morning. Medical tablet Branch metoprolol Yes [id number] 25mg Take 1 Tab [facility] succinate 1-21 by mouth ity of XL (TOPROL 00:00: daily. [place] XL) 25 mg 00 Medical 24 hr Branch tablet cyclobenzap Yes [id number] 5mg Take 1 Tab Univers rine 1-21 [...] Immunizations Ordered Filled Immunization Date Status Comments [facility] Immunization Name Name SARS-COV-2 COVID-19 2021-07-14 Completed Unive rsity of PFIZER VACCINE 00:00:00 [facility] SARS-COV-2 COVID-19 2020-12-29 Completed Unive rsity of PFIZER VACCINE 00:00:00 [facility] SARS-COV-2 COVID-19 2020-12-08 Completed Unive rsity of PFIZER VACCINE 00:00:00 [facility] Vital Signs Vital Name Observation Time Observation Value Comments Source Heart Rate 2022-07-05 13:17:22 [facility] Systolic (mm Hg) 2022-07-05 13:16:48 [place] Diastolic (mm Hg) 2022-07-05 13:16:48 [facility] [place] Heart Rate 2022-07-05 13:16:48 [facility] [place] Temperature Oral (F) 2022-07-05 13:16:38 98.5 F [facility] [place] Heart Rate 2022-07-05 10:43:57 [facility] [place] Respitory Rate 2022-07-05 10:43:57 [facility] [place] Systolic (mm Hg) 2022-07-05 10:43:21 [place] Diastolic (mm Hg) 2022-07-05 10:43:21 [facility] [place] Temperature Oral (F) 2022-07-05 10:43:16 98 F [facility] Respitory Rate 2022-07-05 04:18:09 [facility] Systolic (mm Hg) 2022-07-05 04:17:55 [place] Diastolic (mm Hg) 2022-07-05 04:17:55 [facility] Temperature Oral (F) 2022-07-05 04:17:48 97.5 F [facility] Respitory Rate 2022-07-05 00:20:41 [facility] Temperature Oral (F) 2022-06-20 08:43:00 97.2 F [facility] [place] Respitory Rate 2022-06-20 08:00:00 [facility] Systolic (mm Hg) 2022-06-20 08:00:00 [place] Diastolic (mm Hg) 2022-06-20 08:00:00 [facility] Respitory Rate 2022-06-20 07:00:00 [facility] Systolic (mm Hg) 2022-06-20 07:00:00 [place] Diastolic (mm Hg) 2022-06-20 07:00:00 [facility] [place] Respitory Rate 2022-06-20 06:00:00 [facility] Systolic (mm Hg) 2022-06-20 06:00:00 [place] Diastolic (mm Hg) 2022-06-20 06:00:00 [facility] [place] Temperature Oral (F) 2022-06-20 04:25:00 98.7 F [facility] [place] Temperature Oral (F) 2022-06-20 00:45:00 98.5 F [facility] [place] Height 2022-06-18 20:22:00 185.42 cm [facility] [place] Weight 2022-06-18 20:22:00 [facility] BMI Calculated 2022-06-18 20:22:00 [facility] [place] Heart Rate 2022-06-18 07:51:00 [facility] [place] Temperature Oral (F) 2017-11-17 14:00:00 99 F [facility] [place] Heart Rate 2017-11-17 14:00:00 [facility] Systolic (mm Hg) 2017-11-17 14:00:00 [place] Diastolic (mm Hg) 2017-11-17 14:00:00 [facility] [place] Temperature Oral (F) 2017-11-17 10:04:00 98.2 F [facility] [place] Respitory Rate 2017-11-17 10:04:00 [facility] Heart Rate 2017-11-17 10:04:00 [facility] [place] Systolic (mm Hg) 2017-11-17 10:04:00 [place] Diastolic (mm Hg) 2017-11-17 10:04:00 [facility] Systolic (mm Hg) 2017-11-17 06:04:00 [place] Diastolic (mm Hg) 2017-11-17 06:04:00 [facility] [place] Respitory Rate 2017-11-17 06:04:00 [facility] [place] Temperature Oral (F) 2017-11-17 06:04:00 98 F [facility] Heart Rate 2017-11-17 06:04:00 [facility] [place] Respitory Rate 2017-11-17 02:00:00 [facility] [place] Weight 2017-11-15 16:51:00 [facility] BMI Calculated 2017-11-15 16:51:00 [facility] Height 2017-11-15 16:51:00 177.8 cm [facility] Respitory Rate 2016-07-23 19:00:00 [facility] Systolic (mm Hg) 2016-07-23 18:00:00 [place] Diastolic (mm Hg) 2016-07-23 18:00:00 [facility] Respitory Rate 2016-07-23 18:00:00 [facility] [place] Systolic (mm Hg) 2016-07-23 17:00:00 [place] Diastolic (mm Hg) 2016-07-23 17:00:00 [facility] [place] Respitory Rate 2016-07-23 17:00:00 [facility] Systolic (mm Hg) 2016-07-23 16:00:00 [place] Diastolic (mm Hg) 2016-07-23 16:00:00 [facility] [place] Height 2016-07-22 21:31:00 177.8 cm [facility] Weight 2016-07-22 21:31:00 [facility] BMI Calculated 2016-07-22 21:31:00 Heydi chairez [place] Temperature Oral (F) 2016-07-22 21:30:00 97.8 F [facility] Procedures Procedure Date / Time Performing Clinician Source Performed SARS-COV-2 COVID-19 2021-07-14 18:56:33 Doctor Unassigned, [facility] VACCINE,0.3ML,IM (PFIZER) [place] [facility] Cataract [facility] surgery<sup>1</sup> ESWL - Extracorporeal [facility] [place] shock wave lithotripsy of bile duct calculus Colonoscopy [facility] Hydrocelectomy [facility] Tonsillectomy [facility] Encounters Start End Encounter Admission Attending Care Care Encounter Source Date/Time Date/Time Type Type Clinicians Facility Department ID 2022-06-22 Outpatient [facility] [id number] [place] 10:23:11 [id number] [facility] 2021-11-18 Outpatient MARY ALICE WHEAT [id number] 17:57:54 Anderso n 2022-06-18 2022-07-05 Inpatient [facility] [id number] Memoria 07:51:00 15:35:[address] 2022-06-18 2022-07-05 Inpatient [facility] [id number] Mem[facility] 07:51:00 15:35:[address] 2022-06-18 2022-07-05 Inpatient E DEON [facility] MED [id number] [facility] 11:24:00 10:35:00 JOHNATHAN 2022-06-18 2022-07-05 Outpatient Deon [facility] [id number] 02:51:00 10:35:00 Johnathan Moralez 2022-06-18 2022-06-18 Outpatient Brian [facility] [id number] 02:51:00 02:51:00 Sherita Starks 2021-07-14 2021-07-14 Outpatient [facility] [id number] 13:30:00 13:30:00 ity [facility] 2021-07-14 2021-07-14 Imm/Inj Nurse, Adc Pob Immunization [facility] [id number] [facility] 13:18:54 13:28:54 Visit AbdiazizTyrones Dudleygregoria Salgado [id number] [facility] [id number] Wojciech Sun [id number] [place] [address] 2017-11-16 2017-11-17 Observatio nullFlavo [facility] [id number] Memoria 21:28:00 16:18:00 n r Jim 00 l [facility] 2017-11-16 2017-11-17 Observatio nullFlavo [facility] [id number] Memoria 21:28:00 16:18:00 n r Jim 00 l [facility] 2017-11-16 2017-11-17 Outpatient TRACIE Mcclellan [facility] [id number] 15:28:00 10:18:00 Jose Tariq 2016-08-05 2016-08-06 Outpt Diag nullFlavo [facility] [id number] Memoria 16:42:00 04:59:00 Services r Outpatient 00 l [facility] 2016-08-05 2016-08-06 Outpt Diag nullFlavo [facility] [id number] Memoria 16:42:00 04:59:00 Services r Outpatient 00 l [facility] 2016-08-05 2016-08-05 Outpatient Mann [id number] 11:42:00 23:59:00 Julia [id number] Frederic [id number] 5.30 2016-08-05 2016-08-05 Outpatient [facility] [place] [id number] [facility] 10:30:00 10:30:00 00 [facility] 2016-08-05 2016-08-05 Outpatient MHIE [facility]IE [id number] Mem[facility] 10:30:00 10:30:00 00 [facility] 2016-07-22 2016-07-23 [facility] [id number] Memoria 20:59:00 19:15:00 r [place] 81 l [facility] 2016-07-22 2016-07-23 Inpatient nullFlavo [facility] [id number] Memoria 20:59:00 19:15:00 alyssa Fernandez 81 l [facility] 2016-07-22 2016-07-23 Outpatient Suresh, [facility] [id number] 15:59:00 14:15:00 Jermaine 81 Results Test Description Test Time Test Comments Results Result Comments Source CHEM PANEL 2022-07-03 10:42:00 Test Item Value Reference Range Interpretation Comme nts Lactic Acid Lvl (test code = Lactic Acid Lvl) 1.0 0.5-2.2 [facility] [id number] 10:42:00 Test Item Value Reference Range Interpretation Comments Lactic Acid Lvl (test code = Lactic 1.0 0.5-2.2 Acid Lvl) [id number] 08:57:00 Test Item Value Reference Range Interpretation Comments Monocytes (test code = Monocytes) 8.1 2.0-12.0 [facility] [id number] 08:57:00 Test Item Value Reference Range Interpretation Comments Eosinophils (test code = 1.0 See_Comment [A utomated message] The Eosinophils) system which ge nerated this result tra nsmitted reference range : <=4.0. The reference r mirela was not used to int erpret this result as normal/abnormal . [facility] [id number] 08:57:00 Test Item Value Reference Range Interpretation Comments Basophils (test code = 0.6 See_Comment [Aut omated message] The Basophils) system which ge nerated this result tra nsmitted reference range : <=1.0. The reference r mirela was not used to int erpret this result as normal/abnormal . [facility] [id number] 08:57:00 Test Item Value Reference Range Interpretation Comments Neutrophils # (test code = Neutrophils 10.3 1.5-8.1 #) [place] [id number] 08:57:00 Test Item Value Reference Range Interpretation Comments Lymphocytes # (test code = Lymphocytes 0.6 1.0-5.5 #) [place] [address]-09-17 08:57:00 Test Item Value Reference Range Interpretation Comments Monocytes # (test code 1.0 See_Comment [Aut omated message] The = Monocytes #) system which generated this result tra nsmitted reference range : <=0.8. The reference r mirela was not used to int erpret this result as normal/abnormal . [facility] [id number] 08:57:00 Test Item Value Reference Range Interpretation Comments Eosinophils # (test code 0.1 See_Comment [A utomated message] The = Eosinophils #) system whic h generated this result tra nsmitted reference range : <=0.5. The reference r mirela was not used to int erpret this result as normal/abnormal . [facility] [id number] 08:57:00 Test Item Value Reference Range Interpretation Comments Basophils # (test code 0.1 See_Comment [Aut omated message] The = Basophils #) system which generated this result tra nsmitted reference range : <=0.2. The reference r mirela was not used to int erpret this result as normal/abnormal . [facility] [id number] 08:57:00 Test Item Value Reference Range Interpretation Comments Macrocyte (test code = 2+ *ABN*(07/02/22 Macrocyte) 3:57 AM) [id number] 08:57:00 Test Item Value Reference Range Interpretation Comments HS Troponin I (test code = HS Troponin 6 I) [facility] [id number] 08:57:00 Test Item Value Reference Range Interpretation Comments Lactic Acid Lvl (test code = Lactic 1.0 0.5-2.2 Acid Lvl) [facility] [id number] 08:57:00 Test Item Value Reference Range Interpretation Comments Glucose Lvl (test code = Glucose Lvl) 93 70-99 [facility] [id number] 08:57:00 Test Item Value Reference Range Interpretation Comments BUN (test code = BUN) 16 - [facility] [id number] 08:57:00 Test Item Value Reference Range Interpretation Comments Creatinine Lvl (test code = Creatinine 0.75 0.50-1.40 Lvl) [facility]2022-09-17 08:57:00 Test Item Value Reference Range Interpretation Comments Sodium Lvl (test code = Sodium Lvl) 141 135-145 [facility] [id number] 08:57:00 Test Item Value Reference Range Interpretation Comments Potassium Lvl (test code = Potassium 3.5 3.5-5.1 Lvl) [facility] [id number] 08:57:00 Test Item Value Reference Range Interpretation Comments Chloride Lvl (test code = Chloride Lvl) 112 95-109 [facility] [id number] 08:57:00 Test Item Value Reference Range Interpretation Comments HS Troponin I (test code = HS Troponin 6 I) [facility]2022-09-17 08:57:00 Test Item Value Reference Range Interpretation Comments Lactic Acid Lvl (test code = Lactic 1.0 0.5-2.2 Acid Lvl) [facility]2022-09-17 08:57:00 Test Item Value Reference Range Interpretation Comments Glucose Lvl (test code = Glucose Lvl) 93 70-99 [facility]2022-09-17 08:57:00 Test Item Value Reference Range Interpretation Comments BUN (test code = BUN) 16 05-06 [place] [id number] 08:57:00 Test Item Value Reference Range Interpretation Comments Creatinine Lvl (test code = Creatinine 0.75 0.50-1.40 Lvl) [facility]2022-09-17 08:57:00 Test Item Value Reference Range Interpretation Comments Sodium Lvl (test code = Sodium Lvl) 141 135-145 [facility]2022-09-17 08:57:00 Test Item Value Reference Range Interpretation Comments Potassium Lvl (test code = Potassium 3.5 3.5-5.1 Lvl) [facility]2022-09-17 08:57:00 Test Item Value Reference Range Interpretation Comments Chloride Lvl (test code = Chloride Lvl) 112 95-109 [facility]2022-09-17 08:57:00 Test Item Value Reference Range Interpretation Comments CO2 (test code = CO2) [facility]2022-09-17 08:57:00 Test Item Value Reference Range Interpretation Comments Calcium Lvl (test code = Calcium Lvl) 7.9 8.5-10.5 [facility]2022-09-17 08:57:00 Test Item Value Reference Range Interpretation Comments CO2 (test code = CO2) - [place] [id number] 08:57:00 Test Item Value Reference Range Interpretation Comments Total Protein (test code = Total 5.0 6.4-8.4 Protein) [facility] [employer] [id number] 08:57:00 Test Item Value Reference Range Interpretation Comments Albumin Lvl (test code = Albumin Lvl) 2.2 3.5-5.0 [facility] [id number] 08:57:00 Test Item Value Reference Range Interpretation Comments ALT (test code = ALT) 15 See_Comment [Auto mated message] The system which ge nerated this result transmit sivakumar reference range : <=65. The reference range was not used to interpr et this result as jenelle l/abnormal. [facility] [employer] [id number] 08:57:00 Test Item Value Reference Range Interpretation Comments AST (test code = AST) 14 See_Comment [Auto mated message] The system which ge nerated this result transmit sivakumar reference range : <=37. The reference range was not used to interpr et this result as jenelle l/abnormal. [facility] [employer] [id number] 08:57:00 Test Item Value Reference Range Interpretation Comments Alk Phos (test code = Alk Phos) 115 39-136 [facility] [employer] [id number] 08:57:00 Test Item Value Reference Range Interpretation Comments Bili Total (test code = Bili Total) 1.2 0.2-1.3 [facility] [id number] 08:57:00 Test Item Value Reference Range Interpretation Comments AGAP (test code = AGAP) 8.5 10.0-20.0 [facility] [employer] [id number] 08:57:00 Test Item Value Reference Range Interpretation Comments B/C Ratio (test code = B/C Ratio) 21 1 6-25 [facility] [employer] [id number] 08:57:00 Test Item Value Reference Range Interpretation Comments Globulin (test code = Globulin) 2.8 2.7-4.2 [facility] [employer] [id number] 08:57:00 Test Item Value Reference Range Interpretation Comments A/G Ratio (test code = A/G Ratio) 0.8 1 0.7-1.6 [facility] [employer] [id number] 08:57:00 Test Item Value Reference Range Interpretation Comments Calcium Lvl (test code = Calcium Lvl) 7.9 8.5-10.5 [facility]2022-09-17 08:57:00 Test Item Value Reference Range Interpretation Comments eGFR (test code = eGFR) 86 [place] [id number] 08:57:00 Test Item Value Reference Range Interpretation Comments Procalcitonin Lvl (test 0.05 See_Comment [Au tomated message] code = Procalcitonin Lvl) Th e system which generated this result transmitted ref erence range: <=0.10. The reference range was not used to interpr et this result as normal/abnormal . [place] 970252-09-17 08:57:00 Test Item Value Reference Range Interpretation Comments WBC (test code = WBC) 12.1 3.7-10.4 [place] [address]-09-17 08:57:00 Test Item Value Reference Range Interpretation Comments RBC (test code = RBC) 2.08 4.70-6.10 [place] 970252-09-17 08:57:00 Test Item Value Reference Range Interpretation Comments Hgb (test code = Hgb) 7.4 14.0-18.0 [place] [address]-09-17 08:57:00 Test Item Value Reference Range Interpretation Comments Hct (test code = Hct) 22.5 42.0-54.0 [place] [address]-09-17 08:57:00 Test Item Value Reference Range Interpretation Comments MCV (test code = MCV) 108.5 80.0-94.0 [place] [address]-09-17 08:57:00 Test Item Value Reference Range Interpretation Comments MCH (test code = MCH) 35.6 pg 27.0-31.0 [place] [address]-09-17 08:57:00 Test Item Value Reference Range Interpretation Comments MCHC (test code = MCHC) 32.8 32.0-36.0 [place] [address]-09-17 08:57:00 Test Item Value Reference Range Interpretation Comments RDW (test code = RDW) 14.3 11.5-14.5 [place] [id number] 08:57:00 Test Item Value Reference Range Interpretation Comments Total Protein (test code = Total 5.0 6.4-8.4 Protein) [place] 970252-09-17 08:57:00 Test Item Value Reference Range Interpretation Comments Platelet (test code = Platelet) 378 133-450 [place] [address]-09-17 08:57:00 Test Item Value Reference Range Interpretation Comments MPV (test code = MPV) 7.2 7.4-10.4 [place] [address]-09-17 08:57:00 Test Item Value Reference Range Interpretation Comments Segs (test code = Segs) 85.3 45.0-75.0 [place] [address]-09-17 08:57:00 Test Item Value Reference Range Interpretation Comments Lymphocytes (test code = Lymphocytes) 5.0 20.0-40.0 [place] [address]-09-17 08:57:00 Test Item Value Reference Range Interpretation Comments Monocytes (test code = Monocytes) 8.1 2.0-12.0 [place] [address]-09-17 08:57:00 Test Item Value Reference Range Interpretation Comments Eosinophils (test code = 1.0 See_Comment [A utomated message] The Eosinophils) system which ge nerated this result tra nsmitted reference range : <=4.0. The reference r mirela was not used to int erpret this result as normal/abnormal . [place] [address]-09-17 08:57:00 Test Item Value Reference Range Interpretation Comments Basophils (test code = 0.6 See_Comment [Aut omated message] The Basophils) system which ge nerated this result tra nsmitted reference range : <=1.0. The reference r mirela was not used to int erpret this result as normal/abnormal . [place] 970252-09-17 08:57:00 Test Item Value Reference Range Interpretation Comments Neutrophils # (test code = Neutrophils 10.3 1.5-8.1 #) [place] [address]-09-17 08:57:00 Test Item Value Reference Range Interpretation Comments Lymphocytes # (test code = Lymphocytes 0.6 1.0-5.5 #) [place] [address]-09-17 08:57:00 Test Item Value Reference Range Interpretation Comments Monocytes # (test code 1.0 See_Comment [Aut omated message] The = Monocytes #) system which generated this result tra nsmitted reference range : <=0.8. The reference r mirela was not used to int erpret this result as normal/abnormal . [facility] [id number] 08:57:00 Test Item Value Reference Range Interpretation Comments Albumin Lvl (test code = Albumin Lvl) 2.2 3.5-5.0 [place] [address]-09-17 08:57:00 Test Item Value Reference Range Interpretation Comments Eosinophils # (test code 0.1 See_Comment [A utomated message] The = Eosinophils #) system whic h generated this result tra nsmitted reference range : <=0.5. The reference r mirela was not used to int erpret this result as normal/abnormal . [place] [address]-09-17 08:57:00 Test Item Value Reference Range Interpretation Comments Basophils # (test code 0.1 See_Comment [Aut omated message] The = Basophils #) system which generated this result tra nsmitted reference range : <=0.2. The reference r mirela was not used to int erpret this result as normal/abnormal . [place] [address]-09-17 08:57:00 Test Item Value Reference Range Interpretation Comments Macrocyte (test code = 2+ *ABN*(07/02/22 Macrocyte) 3:57 AM) [place] [address]-09-17 08:57:00 Test Item Value Reference Range Interpretation Comments ALT (test code = ALT) 15 See_Comment [Auto mated message] The system which ge nerated this result transmit sivakumar reference range : <=65. The reference range was not used to interpr et this result as jenelle l/abnormal. [facility] [id number] 08:57:00 Test Item Value Reference Range Interpretation Comments AST (test code = AST) 14 See_Comment [Auto mated message] The system which ge nerated this result transmit sivakumar reference range : <=37. The reference range was not used to interpr et this result as jenelle l/abnormal. [facility] [id number] 08:57:00 Test Item Value Reference Range Interpretation Comments Alk Phos (test code = Alk Phos) 115 39-136 [facility] [id number] 08:57:00 Test Item Value Reference Range Interpretation Comments Bili Total (test code = Bili Total) 1.2 0.2-1.3 [place] [address]-09-17 08:57:00 Test Item Value Reference Range Interpretation Comments AGAP (test code = AGAP) 8.5 10.0-20.0 [place] [address]-09-17 08:57:00 Test Item Value Reference Range Interpretation Comments B/C Ratio (test code = B/C Ratio) 21 1 6-25 [place] [address]-09-17 08:57:00 Test Item Value Reference Range Interpretation Comments Globulin (test code = Globulin) 2.8 2.7-4.[address]09-17 08:57:00 Test Item Value Reference Range Interpretation Comments A/G Ratio (test code = A/G Ratio) 0.8 1 0.7-1.[address]09-17 08:57:00 Test Item Value Reference Range Interpretation Comments eGFR (test code = eGFR) 86 [place] 532072-09-17 08:57:00 Test Item Value Reference Range Interpretation Comments Procalcitonin Lvl (test 0.05 See_Comment [Au tomated message] code = Procalcitonin Lvl) Th e system which generated this result transmitted ref erence range: <=0.10. The reference range was not used to interpr et this result as normal/abnormal . [place] [address]-09-17 08:57:00 Test Item Value Reference Range Interpretation Comments WBC (test code = WBC) 12.1 3.7-10.4 [place] [address]-09-17 08:57:00 Test Item Value Reference Range Interpretation Comments RBC (test code = RBC) 2.08 4.70-6.10 [place] [address]-09-17 08:57:00 Test Item Value Reference Range Interpretation Comments Hgb (test code = Hgb) 7.4 14.0-18.0 [place] [address]-09-17 08:57:00 Test Item Value Reference Range Interpretation Comments Hct (test code = Hct) 22.5 42.0-54.0 [place] [address]-09-17 08:57:00 Test Item Value Reference Range Interpretation Comments MCV (test code = MCV) 108.5 80.0-94.0 [place] 970252-09-17 08:57:00 Test Item Value Reference Range Interpretation Comments MCH (test code = MCH) 35.6 pg 27.0-31.0 [place] 970252-09-17 08:57:00 Test Item Value Reference Range Interpretation Comments MCHC (test code = MCHC) 32.8 32.0-36.0 [place] 970252-09-17 08:57:00 Test Item Value Reference Range Interpretation Comments RDW (test code = RDW) 14.3 11.5-14.5 [place] [address]-09-17 08:57:00 Test Item Value Reference Range Interpretation Comments Platelet (test code = Platelet) 378 133-450 [place] 970252-09-17 08:57:00 Test Item Value Reference Range Interpretation Comments MPV (test code = MPV) 7.2 7.4-10.4 [place] [address]-09-17 08:57:00 Test Item Value Reference Range Interpretation Comments Segs (test code = Segs) 85.3 45.0-75.0 [place] [address]-09-17 08:57:00 Test Item Value Reference Range Interpretation Comments Lymphocytes (test code = Lymphocytes) 5.0 20.0-40.0 [facility]2022-09-16 19:02:00 Test Item Value Reference Range Interpretation Comments Lactic Acid Lvl (test code = Lactic 1.3 0.5-2.2 Acid Lvl) [place] 532072-09-16 19:02:00 Test Item Value Reference Range Interpretation Comments Lactic Acid Lvl (test code = Lactic 1.3 0.5-2.2 Acid Lvl) [place] 532072-09-16 09:15:00 Test Item Value Reference Range Interpretation Comments Glucose Lvl (test code = Glucose Lvl) 107 70-99 [place] 532072-09-16 09:15:00 Test Item Value Reference Range Interpretation Comments BUN (test code = BUN) 21 7-22 [place] 532072-09-16 09:15:00 Test Item Value Reference Range Interpretation Comments Creatinine Lvl (test code = Creatinine 0.91 0.50-1.40 Lvl) [place] 532072-09-16 09:15:00 Test Item Value Reference Range Interpretation Comments Sodium Lvl (test code = Sodium Lvl) 141 135-145 [place] 532072-09-16 09:15:00 Test Item Value Reference Range Interpretation Comments Potassium Lvl (test code = Potassium 3.3 3.5-5.1 Lvl) [place] 532072-09-16 09:15:00 Test Item Value Reference Range Interpretation Comments Chloride Lvl (test code = Chloride Lvl) 112 95-109 [place] 532072-09-16 09:15:00 Test Item Value Reference Range Interpretation Comments CO2 (test code = CO2) 24 24-32 [place] 532072-09-16 09:15:00 Test Item Value Reference Range Interpretation Comments AGAP (test code = AGAP) 8.3 10.0-20.0 [place] [address]-09-16 09:15:00 Test Item Value Reference Range Interpretation Comments Calcium Lvl (test code = Calcium Lvl) 8.4 8.5-10.5 [place] 532072-09-16 09:15:00 Test Item Value Reference Range Interpretation Comments B/C Ratio (test code = B/C Ratio) 23 1 6-25 [place] [address]-09-16 09:15:00 Test Item Value Reference Range Interpretation Comments Total Protein (test code = Total 5.4 6.4-8.4 Protein) [place] 532072-09-16 09:15:00 Test Item Value Reference Range Interpretation Comments Albumin Lvl (test code = Albumin Lvl) 2.4 3.5-5.0 [place] 532072-09-16 09:15:00 Test Item Value Reference Range Interpretation Comments Globulin (test code = Globulin) 3.0 2.7-4.2 [place] 532072-09-16 09:15:00 Test Item Value Reference Range Interpretation Comments A/G Ratio (test code = A/G Ratio) 0.8 1 0.7-1.6 [place] [address]-09-16 09:15:00 Test Item Value Reference Range Interpretation Comments ALT (test code = ALT) 15 See_Comment [Auto mated message] The system which ge nerated this result transmit sivakumar reference range : <=65. The reference range was not used to interpr et this result as jenelle l/abnormal. [place] 532072-09-16 09:15:00 Test Item Value Reference Range Interpretation Comments AST (test code = AST) 15 See_Comment [Auto mated message] The system which ge nerated this result transmit sivakumar reference range : <=37. The reference range was not used to interpr et this result as jenelle l/abnormal. [place] 532072-09-16 09:15:00 Test Item Value Reference Range Interpretation Comments Alk Phos (test code = Alk Phos) 112 39-136 [place] 532072-09-16 09:15:00 Test Item Value Reference Range Interpretation Comments Bili Total (test code = Bili Total) 1.4 0.2-1.3 [place] [address]-09-16 09:15:00 Test Item Value Reference Range Interpretation Comments eGFR (test code = eGFR) 80 [place] 532072-09-16 09:15:00 Test Item Value Reference Range Interpretation Comments Phosphorus (test code = Phosphorus) 2.8 2.5-4.5 [place] [address]-09-16 09:15:00 Test Item Value Reference Range Interpretation Comments Magnesium Lvl (test code = Magnesium 2.1 1.8-2.4 Lvl) [place] [address]-09-16 09:15:00 Test Item Value Reference Range Interpretation Comments WBC (test code = WBC) 17.1 3.7-10.4 [place] 970252-09-16 09:15:00 Test Item Value Reference Range Interpretation Comments RBC (test code = RBC) 2.20 4.70-6.10 [place] [address]-09-16 09:15:00 Test Item Value Reference Range Interpretation Comments Hgb (test code = Hgb) 8.2 14.0-18.0 [place] [address]-09-16 09:15:00 Test Item Value Reference Range Interpretation Comments Hct (test code = Hct) 23.6 42.0-54.0 [place] [address]-09-16 09:15:00 Test Item Value Reference Range Interpretation Comments MCV (test code = MCV) 107.3 80.0-94.0 [id number] 09:15:00 Test Item Value Reference Range Interpretation Comments MCH (test code = MCH) 37.3 pg 27.0-31.0 [facility] [id number] 09:15:00 Test Item Value Reference Range Interpretation Comments MCHC (test code = MCHC) 34.8 32.0-36.0 [facility] [id number] 09:15:00 Test Item Value Reference Range Interpretation Comments RDW (test code = RDW) 14.2 11.5-14.5 [place] 970252-09-16 09:15:00 Test Item Value Reference Range Interpretation Comments Platelet (test code = Platelet) 433 133-450 [facility] [id number] 09:15:00 Test Item Value Reference Range Interpretation Comments MPV (test code = MPV) 7.3 7.4-10.4 [facility] [id number] 09:15:00 Test Item Value Reference Range Interpretation Comments Segs (test code = Segs) 85.4 45.0-75.0 [place] 970252-09-16 09:15:00 Test Item Value Reference Range Interpretation Comments Lymphocytes (test code = Lymphocytes) 5.9 20.0-40.0 [facility] [id number] 09:15:00 Test Item Value Reference Range Interpretation Comments Monocytes (test code = Monocytes) 8.0 2.0-12.0 [facility] [id number] 09:15:00 Test Item Value Reference Range Interpretation Comments Eosinophils (test code = 0.5 See_Comment [A utomated message] The Eosinophils) system which ge nerated this result tra nsmitted reference range : <=4.0. The reference r mirela was not used to int erpret this result as normal/abnormal . [facility] [id number] 09:15:00 Test Item Value Reference Range Interpretation Comments Basophils (test code = 0.2 See_Comment [Aut omated message] The Basophils) system which ge nerated this result tra nsmitted reference range : <=1.0. The reference r mirela was not used to int erpret this result as normal/abnormal . [facility] [id number] 09:15:00 Test Item Value Reference Range Interpretation Comments Neutrophils # (test code = Neutrophils 14.6 1.5-8.1 #) [place] 970252-09-16 09:15:00 Test Item Value Reference Range Interpretation Comments Lymphocytes # (test code = Lymphocytes 1.0 1.0-5.5 #) [place] 970252-09-16 09:15:00 Test Item Value Reference Range Interpretation Comments Monocytes # (test code 1.4 See_Comment [Aut omated message] The = Monocytes #) system which generated this result tra nsmitted reference range : <=0.8. The reference r mirela was not used to int erpret this result as normal/abnormal . [place] 970252-09-16 09:15:00 Test Item Value Reference Range Interpretation Comments Eosinophils # (test code 0.1 See_Comment [A utomated message] The = Eosinophils #) system whic h generated this result tra nsmitted reference range : <=0.5. The reference r mirela was not used to int erpret this result as normal/abnormal . [place] 970252-09-16 09:15:00 Test Item Value Reference Range Interpretation Comments Macrocyte (test code = 2+ *ABN*(07/01/22 Macrocyte) 4:15 AM) [place] [address]-09-16 09:15:00 Test Item Value Reference Range Interpretation Comments Glucose Lvl (test code = Glucose Lvl) 107 70-99 [place] 532072-09-16 09:15:00 Test Item Value Reference Range Interpretation Comments BUN (test code = BUN) 21 7-22 [place] 532072-09-16 09:15:00 Test Item Value Reference Range Interpretation Comments Creatinine Lvl (test code = Creatinine 0.91 0.50-1.40 Lvl) [place] 532072-09-16 09:15:00 Test Item Value Reference Range Interpretation Comments Sodium Lvl (test code = Sodium Lvl) 141 135-145 [place] [address]-09-16 09:15:00 Test Item Value Reference Range Interpretation Comments Potassium Lvl (test code = Potassium 3.3 3.5-5.1 Lvl) [place] 532072-09-16 09:15:00 Test Item Value Reference Range Interpretation Comments Chloride Lvl (test code = Chloride Lvl) 112 95-109 [place] 532072-09-16 09:15:00 Test Item Value Reference Range Interpretation Comments CO2 (test code = CO2) 24 24-32 [place] [address]-09-16 09:15:00 Test Item Value Reference Range Interpretation Comments AGAP (test code = AGAP) 8.3 10.0-20.0 [place] [address]-09-16 09:15:00 Test Item Value Reference Range Interpretation Comments Calcium Lvl (test code = Calcium Lvl) 8.4 8.5-10.5 [place] [address]-09-16 09:15:00 Test Item Value Reference Range Interpretation Comments B/C Ratio (test code = B/C Ratio) 23 1 6-25 [place] [address]-09-16 09:15:00 Test Item Value Reference Range Interpretation Comments Total Protein (test code = Total 5.4 6.4-8.4 Protein) [place] [address]-09-16 09:15:00 Test Item Value Reference Range Interpretation Comments Albumin Lvl (test code = Albumin Lvl) 2.4 3.5-5.0 [place] [address]-09-16 09:15:00 Test Item Value Reference Range Interpretation Comments Globulin (test code = Globulin) 3.0 2.7-4.2 [place] [address]-09-16 09:15:00 Test Item Value Reference Range Interpretation Comments A/G Ratio (test code = A/G Ratio) 0.8 1 0.7-1.6 [place] [address]-09-16 09:15:00 Test Item Value Reference Range Interpretation Comments ALT (test code = ALT) 15 See_Comment [Auto mated message] The system which ge nerated this result transmit sivakumar reference range : <=65. The reference range was not used to interpr et this result as jenelle l/abnormal. [place] [address]-09-16 09:15:00 Test Item Value Reference Range Interpretation Comments AST (test code = AST) 15 See_Comment [Auto mated message] The system which ge nerated this result transmit sivakuamr reference range : <=37. The reference range was not used to interpr et this result as jenelle l/abnormal. [facility]2022-09-16 09:15:00 Test Item Value Reference Range Interpretation Comments Alk Phos (test code = Alk Phos) 112 39-136 [place] 532072-09-16 09:15:00 Test Item Value Reference Range Interpretation Comments Bili Total (test code = Bili Total) 1.4 0.2-1.3 [place] 532072-09-16 09:15:00 Test Item Value Reference Range Interpretation Comments eGFR (test code = eGFR) 80 [place] 532072-09-16 09:15:00 Test Item Value Reference Range Interpretation Comments Phosphorus (test code = Phosphorus) 2.8 2.5-4.5 [place] 532072-09-16 09:15:00 Test Item Value Reference Range Interpretation Comments Magnesium Lvl (test code = Magnesium 2.1 1.8-2.4 Lvl) [place] 970252-09-16 09:15:00 Test Item Value Reference Range Interpretation Comments WBC (test code = WBC) 17.1 3.7-10.4 [place] 970252-09-16 09:15:00 Test Item Value Reference Range Interpretation Comments RBC (test code = RBC) 2.20 4.70-6.10 [place] 970252-09-16 09:15:00 Test Item Value Reference Range Interpretation Comments Hgb (test code = Hgb) 8.2 14.0-18.0 [place] 970252-09-16 09:15:00 Test Item Value Reference Range Interpretation Comments Hct (test code = Hct) 23.6 42.0-54.0 [place] 970252-09-16 09:15:00 Test Item Value Reference Range Interpretation Comments MCV (test code = MCV) 107.3 80.0-94.0 [place] [address]-09-16 09:15:00 Test Item Value Reference Range Interpretation Comments MCH (test code = MCH) 37.3 pg 27.0-31.0 [place] [address]-09-16 09:15:00 Test Item Value Reference Range Interpretation Comments MCHC (test code = MCHC) 34.8 32.0-36.0 [place] [address]-09-16 09:15:00 Test Item Value Reference Range Interpretation Comments RDW (test code = RDW) 14.2 11.5-14.5 [place] 970252-09-16 09:15:00 Test Item Value Reference Range Interpretation Comments Platelet (test code = Platelet) 433 133-450 [place] 970252-09-16 09:15:00 Test Item Value Reference Range Interpretation Comments MPV (test code = MPV) 7.3 7.4-10.4 [place] 970252-09-16 09:15:00 Test Item Value Reference Range Interpretation Comments Segs (test code = Segs) 85.4 45.0-75.0 [place] 970252-09-16 09:15:00 Test Item Value Reference Range Interpretation Comments Lymphocytes (test code = Lymphocytes) 5.9 20.0-40.0 [place] [address]-09-16 09:15:00 Test Item Value Reference Range Interpretation Comments Monocytes (test code = Monocytes) 8.0 2.0-12.0 [place] 970252-09-16 09:15:00 Test Item Value Reference Range Interpretation Comments Eosinophils (test code = 0.5 See_Comment [A utomated message] The Eosinophils) system which ge nerated this result tra nsmitted reference range : <=4.0. The reference r mirela was not used to int erpret this result as normal/abnormal . [place] [address]-09-16 09:15:00 Test Item Value Reference Range Interpretation Comments Basophils (test code = 0.2 See_Comment [Aut omated message] The Basophils) system which ge nerated this result tra nsmitted reference range : <=1.0. The reference r mirela was not used to int erpret this result as normal/abnormal . [place] 970252-09-16 09:15:00 Test Item Value Reference Range Interpretation Comments Neutrophils # (test code = Neutrophils 14.6 1.5-8.1 #) [place] 970252-09-16 09:15:00 Test Item Value Reference Range Interpretation Comments Lymphocytes # (test code = Lymphocytes 1.0 1.0-5.5 #) [place] 970252-09-16 09:15:00 Test Item Value Reference Range Interpretation Comments Monocytes # (test code 1.4 See_Comment [Aut omated message] The = Monocytes #) system which generated this result tra nsmitted reference range : <=0.8. The reference r mirela was not used to int erpret this result as normal/abnormal . [facility] [id number] 09:15:00 Test Item Value Reference Range Interpretation Comments Eosinophils # (test code 0.1 See_Comment [A utomated message] The = Eosinophils #) system whic h generated this result tra nsmitted reference range : <=0.5. The reference r mirela was not used to int erpret this result as normal/abnormal . [facility] [id number] 09:15:00 Test Item Value Reference Range Interpretation Comments Macrocyte (test code = 2+ *ABN*(07/01/22 Macrocyte) 4:15 AM) [facility] AND [id number] 11:13:00 Test Item Value Reference Range Interpretation Comments UA Color (test code = Yellow *NA*(06/30/22 UA Color) 6:13 AM) [facility] AND [id number] 11:13:00 Test Item Value Reference Range Interpretation Comments UA Turbidity (test code = Clear (06/30/22 6:13 UA Turbidity) AM) [facility] AND [id number] 11:13:00 Test Item Value Reference Range Interpretation Comments UA Spec Grav (test code = UA Spec 1.025 1 Grav) [facility] AND [id number] 11:13:00 Test Item Value Reference Range Interpretation Comments UA pH (test code = UA pH) 5.5 1 5.0-8.0 [facility] AND [id number] 11:13:00 Test Item Value Reference Range Interpretation Comments UA Protein (test code Negative (06/30/22 6:13 = UA Protein) AM) [facility] AND [id number] 11:13:00 Test Item Value Reference Range Interpretation Comments UA Glucose (test code Negative (06/30/22 6:13 = UA Glucose) AM) [facility] AND [id number] 11:13:00 Test Item Value Reference Range Interpretation Comments UA Ketones (test code = UA Ketones) 40 mg/dL [facility] AND [id number] 11:13:00 Test Item Value Reference Range Interpretation Comments UA Bili (test code = Small *ABN*(06/30/22 UA Bili) 6:13 AM) [facility] [id number] 11:13:00 Test Item Value Reference Range Interpretation Comments UA Blood (test code = Negative (06/30/22 6:13 UA Blood) AM) [facility] [id number] 11:13:00 Test Item Value Reference Range Interpretation Comments UA Urobilinogen (test code = UA 1.0 0.1-1.0 Urobilinogen) [facility] [id number] 11:13:00 Test Item Value Reference Range Interpretation Comments UA Nitrite (test code Negative (06/30/22 6:13 = UA Nitrite) AM) [facility] [id number] 11:13:00 Test Item Value Reference Range Interpretation Comments UA Leuk Est (test Negative (06/30/22 6:13 code = UA Leuk Est) AM) [facility] [id number] 11:13:00 Test Item Value Reference Range Interpretation Comments UA Sq Epi (test code = UA Sq Occasional /LPF Epi) [facility] [id number] 11:13:00 Test Item Value Reference Range Interpretation Comments UA WBC (test code = 1 See_Comment [Automa sivakumar message] The UA WBC) system which ge nerated this result transmit sivakumar reference range : <=5. The reference range was not used to interpr et this result as jenelle l/abnormal. [facility] [id number] 11:13:00 Test Item Value Reference Range Interpretation Comments UA RBC (test code = no gt See_Comment [Automa sivakumar message] The UA RBC) system which ge nerated this result transmit sivakumar reference range : <=2. The reference range was not used to interpr et this result as jenelle l/abnormal. [facility] [id number] 11:13:00 Test Item Value Reference Range Interpretation Comments UA Mucus (test code = UA Mucus) Few /LPF [facility] [id number] 11:13:00 Test Item Value Reference Range Interpretation Comments UA Hyal Cast (test 4 See_Comment [Automat ed message] The code = UA Hyal Cast) system which generated this result transmit sivakumar reference range : <=2. The reference range was not used to interpr et this result as jenelle l/abnormal. [facility] [id number] 11:13:00 Test Item Value Reference Range Interpretation Comments UA Trans Epi (test code = UA Trans Epi) 2 [facility] AND [id number] 11:13:00 Test Item Value Reference Range Interpretation Comments UA Color (test code = Yellow *NA*(06/30/22 UA Color) 6:13 AM) [facility] AND [id number] 11:13:00 Test Item Value Reference Range Interpretation Comments UA Turbidity (test code = Clear (06/30/22 6:13 UA Turbidity) AM) [facility] AND [id number] 11:13:00 Test Item Value Reference Range Interpretation Comments UA Spec Grav (test code = UA Spec 1.025 1 Grav) [facility] AND [id number] 11:13:00 Test Item Value Reference Range Interpretation Comments UA pH (test code = UA pH) 5.5 1 5.0-8.0 [facility] AND [id number] 11:13:00 Test Item Value Reference Range Interpretation Comments UA Protein (test code Negative (06/30/22 6:13 = UA Protein) AM) [facility] AND [id number] 11:13:00 Test Item Value Reference Range Interpretation Comments UA Glucose (test code Negative (06/30/22 6:13 = UA Glucose) AM) [facility] AND [id number] 11:13:00 Test Item Value Reference Range Interpretation Comments UA Ketones (test code = UA Ketones) 40 mg/dL [facility] AND [id number] 11:13:00 Test Item Value Reference Range Interpretation Comments UA Bili (test code = Small *ABN*(06/30/22 UA Bili) 6:13 AM) [facility] AND [id number] 11:13:00 Test Item Value Reference Range Interpretation Comments UA Blood (test code = Negative (06/30/22 6:13 UA Blood) AM) [facility] AND [id number] 11:13:00 Test Item Value Reference Range Interpretation Comments UA Urobilinogen (test code = UA 1.0 0.1-1.0 Urobilinogen) [facility] AND [id number] 11:13:00 Test Item Value Reference Range Interpretation Comments UA Nitrite (test code Negative (06/30/22 6:13 = UA Nitrite) AM) [facility] AND [id number] 11:13:00 Test Item Value Reference Range Interpretation Comments UA Leuk Est (test Negative (06/30/22 6:13 code = UA Leuk Est) AM) [facility] AND [id number] 11:13:00 Test Item Value Reference Range Interpretation Comments UA Sq Epi (test code = UA Sq Occasional /LPF Epi) [facility] AND [id number] 11:13:00 Test Item Value Reference Range Interpretation Comments UA WBC (test code = 1 See_Comment [Automa sivakumar message] The UA WBC) system which ge nerated this result transmit sivakumar reference range : <=5. The reference range was not used to interpr et this result as jenelle l/abnormal. [facility] AND [id number] 11:13:00 Test Item Value Reference Range Interpretation Comments UA RBC (test code = no gt See_Comment [Automa sivakumar message] The UA RBC) system which ge nerated this result transmit sivakumar reference range : <=2. The reference range was not used to interpr et this result as jenelle l/abnormal. [facility] AND [id number] 11:13:00 Test Item Value Reference Range Interpretation Comments UA Mucus (test code = UA Mucus) Few /LPF [facility] AND [id number] 11:13:00 Test Item Value Reference Range Interpretation Comments UA Hyal Cast (test 4 See_Comment [Automat ed message] The code = UA Hyal Cast) system which generated this result transmit sivakumar reference range : <=2. The reference range was not used to interpr et this result as jenelle l/abnormal. [facility] AND [id number] 11:13:00 Test Item Value Reference Range Interpretation Comments UA Trans Epi (test code = UA Trans Epi) 2 [facility] [id number] 09:31:00 Test Item Value Reference Range Interpretation Comments Glucose Lvl (test code = Glucose Lvl) 65 70-99 [place] [address]-09-15 09:31:00 Test Item Value Reference Range Interpretation Comments BUN (test code = BUN) 26 7-22 [place] [address]-09-15 09:31:00 Test Item Value Reference Range Interpretation Comments Creatinine Lvl (test code = Creatinine 0.87 0.50-1.40 Lvl) [address]09-15 09:31:00 Test Item Value Reference Range Interpretation Comments Sodium Lvl (test code = Sodium Lvl) 139 135-145 [place] [address]-09-15 09:31:00 Test Item Value Reference Range Interpretation Comments Potassium Lvl (test code = Potassium 4.2 3.5-5.1 Lvl) [place] [address]-09-15 09:31:00 Test Item Value Reference Range Interpretation Comments Chloride Lvl (test code = Chloride Lvl) 110 95-109 [place] [address]-09-15 09:31:00 Test Item Value Reference Range Interpretation Comments CO2 (test code = CO2) 23 24-32 [place] [address]-09-15 09:31:00 Test Item Value Reference Range Interpretation Comments Calcium Lvl (test code = Calcium Lvl) 8.9 8.5-10.5 [place] [address]-09-15 09:31:00 Test Item Value Reference Range Interpretation Comments Total Protein (test code = Total 6.1 6.4-8.4 Protein) [address]09-15 09:31:00 Test Item Value Reference Range Interpretation Comments Albumin Lvl (test code = Albumin Lvl) 2.7 3.5-5.0 [place] [address]-09-15 09:31:00 Test Item Value Reference Range Interpretation Comments ALT (test code = ALT) 17 See_Comment [Auto mated message] The system which ge nerated this result transmit sivakumar reference range : <=65. The reference range was not used to interpr et this result as jenelle l/abnormal. [place] [address]-09-15 09:31:00 Test Item Value Reference Range Interpretation Comments AST (test code = AST) 20 See_Comment [Auto mated message] The system which ge nerated this result transmit sivakumar reference range : <=37. The reference range was not used to interpr et this result as jenelle l/abnormal. [place] 532072-09-15 09:31:00 Test Item Value Reference Range Interpretation Comments Alk Phos (test code = Alk Phos) 121 39-136 [place] [address]-09-15 09:31:00 Test Item Value Reference Range Interpretation Comments Bili Total (test code = Bili Total) 2.1 0.2-1.3 [place] [address]-09-15 09:31:00 Test Item Value Reference Range Interpretation Comments AGAP (test code = AGAP) 10.2 10.0-20.0 [place] [address]-09-15 09:31:00 Test Item Value Reference Range Interpretation Comments B/C Ratio (test code = B/C Ratio) 30 1 6-25 [place] [address]-09-15 09:31:00 Test Item Value Reference Range Interpretation Comments Globulin (test code = Globulin) 3.4 2.7-4.2 [place] [address]-09-15 09:31:00 Test Item Value Reference Range Interpretation Comments A/G Ratio (test code = A/G Ratio) 0.8 1 0.7-1.6 [place] [address]-09-15 09:31:00 Test Item Value Reference Range Interpretation Comments eGFR (test code = eGFR) 83 [place] [address]-09-15 09:31:00 Test Item Value Reference Range Interpretation Comments WBC (test code = WBC) 20.6 3.7-10.4 [place] [address]-09-15 09:31:00 Test Item Value Reference Range Interpretation Comments RBC (test code = RBC) 2.45 4.70-6.10 [place] [address]-09-15 09:31:00 Test Item Value Reference Range Interpretation Comments Hgb (test code = Hgb) 8.9 14.0-18.0 [place] [address]-09-15 09:31:00 Test Item Value Reference Range Interpretation Comments Hct (test code = Hct) 26.3 42.0-54.0 [place] [address]-09-15 09:31:00 Test Item Value Reference Range Interpretation Comments MCV (test code = MCV) 107.4 80.0-94.0 [facility] TempleXntkyphWCDNZOLUJK3999-33-04 09:31:00 Test Item Value Reference Range Interpretation Comments MCH (test code = MCH) 36.2 pg 27.0-31.0 [facility] TempleAcvmdulTSLTPZHFHC4162-68-35 09:31:00 Test Item Value Reference Range Interpretation Comments MCHC (test code = MCHC) 33.7 32.0-36.0 [facility] TempleCkccvokXYUMSNDFXF8621-52-70 09:31:00 Test Item Value Reference Range Interpretation Comments RDW (test code = RDW) 13.6 11.5-14.5 [facility] TempleOlchaccUFMZPXJLXF0530-53-17 09:31:00 Test Item Value Reference Range Interpretation Comments Platelet (test code = Platelet) 459 133-450 [facility] TempleXbotmhdUARJRRCDYS0170-48-01 09:31:00 Test Item Value Reference Range Interpretation Comments MPV (test code = MPV) 7.1 7.4-10.4 [facility] TempleQekzwbvURGZFPFPTJ0448-40-20 09:31:00 Test Item Value Reference Range Interpretation Comments Segs (test code = Segs) 88.8 45.0-75.0 [facility] TempleYiyhikbTDESKCGWEO9695-44-06 09:31:00 Test Item Value Reference Range Interpretation Comments Lymphocytes (test code = Lymphocytes) 3.9 20.0-40.0 [facility] TempleXafnvlhBUDQCZZKEY4797-01-42 09:31:00 Test Item Value Reference Range Interpretation Comments Monocytes (test code = Monocytes) 7.2 2.0-12.0 [place] 970252-09-15 09:31:00 Test Item Value Reference Range Interpretation Comments Basophils (test code = 0.1 See_Comment [Aut omated message] The Basophils) system which ge nerated this result tra nsmitted reference range : <=1.0. The reference r mirela was not used to int erpret this result as normal/abnormal . [facility] TempleFlhnjteOQEGDTKCIT6619-85-06 09:31:00 Test Item Value Reference Range Interpretation Comments Neutrophils # (test code = Neutrophils 18.3 1.5-8.1 #) [facility] TempleTkxlhwlZKVRDHBBUQ8951-61-37 09:31:00 Test Item Value Reference Range Interpretation Comments Lymphocytes # (test code = Lymphocytes 0.8 1.0-5.5 #) [place] [address]-09-15 09:31:00 Test Item Value Reference Range Interpretation Comments Monocytes # (test code 1.5 See_Comment [Aut omated message] The = Monocytes #) system which generated this result tra nsmitted reference range : <=0.8. The reference r mirela was not used to int erpret this result as normal/abnormal . [place] 970252-09-15 09:31:00 Test Item Value Reference Range Interpretation Comments Macrocyte (test code = 2+ *ABN*(06/30/22 Macrocyte) 4:31 AM) [place] 532072-09-15 09:31:00 Test Item Value Reference Range Interpretation Comments Glucose Lvl (test code = Glucose Lvl) 65 70-99 [place] 532072-09-15 09:31:00 Test Item Value Reference Range Interpretation Comments BUN (test code = BUN) 26 7-22 [place] [address]-09-15 09:31:00 Test Item Value Reference Range Interpretation Comments Creatinine Lvl (test code = Creatinine 0.87 0.50-1.40 Lvl) [place] 532072-09-15 09:31:00 Test Item Value Reference Range Interpretation Comments Sodium Lvl (test code = Sodium Lvl) 139 135-145 [place] 532072-09-15 09:31:00 Test Item Value Reference Range Interpretation Comments Potassium Lvl (test code = Potassium 4.2 3.5-5.1 Lvl) [place] [address]-09-15 09:31:00 Test Item Value Reference Range Interpretation Comments Chloride Lvl (test code = Chloride Lvl) 110 95-109 [place] 532072-09-15 09:31:00 Test Item Value Reference Range Interpretation Comments CO2 (test code = CO2) 23 24-32 [place] 532072-09-15 09:31:00 Test Item Value Reference Range Interpretation Comments Calcium Lvl (test code = Calcium Lvl) 8.9 8.5-10.5 [place] [address]-09-15 09:31:00 Test Item Value Reference Range Interpretation Comments Total Protein (test code = Total 6.1 6.4-8.4 Protein) [place] [address]-09-15 09:31:00 Test Item Value Reference Range Interpretation Comments Albumin Lvl (test code = Albumin Lvl) 2.7 3.5-5.0 [facility] [id number] 09:31:00 Test Item Value Reference Range Interpretation Comments ALT (test code = ALT) 17 See_Comment [Auto mated message] The system which ge nerated this result transmit sivakumar reference range : <=65. The reference range was not used to interpr et this result as jenelle l/abnormal. [facility] [id number] 09:31:00 Test Item Value Reference Range Interpretation Comments AST (test code = AST) 20 See_Comment [Auto mated message] The system which ge nerated this result transmit sivakumar reference range : <=37. The reference range was not used to interpr et this result as jenelle l/abnormal. [facility] [id number] 09:31:00 Test Item Value Reference Range Interpretation Comments Alk Phos (test code = Alk Phos) 121 39-136 [facility] [id number] 09:31:00 Test Item Value Reference Range Interpretation Comments Bili Total (test code = Bili Total) 2.1 0.2-1.3 [facility] [id number] 09:31:00 Test Item Value Reference Range Interpretation Comments AGAP (test code = AGAP) 10.2 10.0-20.0 [facility] [id number] 09:31:00 Test Item Value Reference Range Interpretation Comments B/C Ratio (test code = B/C Ratio) 30 1 6-25 [facility] [id number] 09:31:00 Test Item Value Reference Range Interpretation Comments Globulin (test code = Globulin) 3.4 2.7-4.2 [facility] [id number] 09:31:00 Test Item Value Reference Range Interpretation Comments A/G Ratio (test code = A/G Ratio) 0.8 1 0.7-1.6 [facility] [id number] 09:31:00 Test Item Value Reference Range Interpretation Comments eGFR (test code = eGFR) 83 [facility] AustinScqrsclFPJCDKLJLL5650-91-09 09:31:00 Test Item Value Reference Range Interpretation Comments WBC (test code = WBC) 20.6 3.7-10.4 [place] 970252-09-15 09:31:00 Test Item Value Reference Range Interpretation Comments RBC (test code = RBC) 2.45 4.70-6.10 [place] 970252-09-15 09:31:00 Test Item Value Reference Range Interpretation Comments Hgb (test code = Hgb) 8.9 14.0-18.0 [place] [address]-09-15 09:31:00 Test Item Value Reference Range Interpretation Comments Hct (test code = Hct) 26.3 42.0-54.0 [place] 970252-09-15 09:31:00 Test Item Value Reference Range Interpretation Comments MCV (test code = MCV) 107.4 80.0-94.0 [facility] TempleGfjvsqsDEUKPWJLST8735-61-98 09:31:00 Test Item Value Reference Range Interpretation Comments MCH (test code = MCH) 36.2 pg 27.0-31.0 [facility] TempleDktjyuuRJGEDUENSS1603-98-89 09:31:00 Test Item Value Reference Range Interpretation Comments MCHC (test code = MCHC) 33.7 32.0-36.0 [place] 970252-09-15 09:31:00 Test Item Value Reference Range Interpretation Comments RDW (test code = RDW) 13.6 11.5-14.5 [facility] TempleVpjavziMSBGBEZAKQ3158-43-09 09:31:00 Test Item Value Reference Range Interpretation Comments Platelet (test code = Platelet) 459 133-450 [facility] TempleCtvpvldFJFQXYMGAG2427-59-02 09:31:00 Test Item Value Reference Range Interpretation Comments MPV (test code = MPV) 7.1 7.4-10.4 [place] 970252-09-15 09:31:00 Test Item Value Reference Range Interpretation Comments Segs (test code = Segs) 88.8 45.0-75.0 [place] 970252-09-15 09:31:00 Test Item Value Reference Range Interpretation Comments Lymphocytes (test code = Lymphocytes) 3.9 20.0-40.0 [place] [address]-09-15 09:31:00 Test Item Value Reference Range Interpretation Comments Monocytes (test code = Monocytes) 7.2 2.0-12.0 [place] 970252-09-15 09:31:00 Test Item Value Reference Range Interpretation Comments Basophils (test code = 0.1 See_Comment [Aut omated message] The Basophils) system which ge nerated this result tra nsmitted reference range : <=1.0. The reference r mirela was not used to int erpret this result as normal/abnormal . [facility] [id number] 09:31:00 Test Item Value Reference Range Interpretation Comments Neutrophils # (test code = Neutrophils 18.3 1.5-8.1 #) [facility] TempleRtpnlboXFHSDRZJTA4935-59-56 09:31:00 Test Item Value Reference Range Interpretation Comments Lymphocytes # (test code = Lymphocytes 0.8 1.0-5.5 #) [facility] TempleGygaemvOKLBIKDNLR1675-07-71 09:31:00 Test Item Value Reference Range Interpretation Comments Monocytes # (test code 1.5 See_Comment [Aut omated message] The = Monocytes #) system which generated this result tra nsmitted reference range : <=0.8. The reference r mirela was not used to int erpret this result as normal/abnormal . [facility] TempleJjijestLPXHZJTDZS0690-05-92 09:31:00 Test Item Value Reference Range Interpretation Comments Macrocyte (test code = 2+ *ABN*(06/30/22 Macrocyte) 4:31 AM) [facility] TempleZzjjecmCZJQJTYZFB4006-56-21 10:42:00 Test Item Value Reference Range Interpretation Comments Eosinophils (test code = 0.2 See_Comment [A utomated message] The Eosinophils) system which ge nerated this result tra nsmitted reference range : <=4.0. The reference r mirela was not used to int erpret this result as normal/abnormal . [facility] [id number] 10:42:00 Test Item Value Reference Range Interpretation Comments Eosinophils (test code = 0.2 See_Comment [A utomated message] The Eosinophils) system which ge nerated this result tra nsmitted reference range : <=4.0. The reference r mirela was not used to int erpret this result as normal/abnormal . [facility] [id number] 09:48:00 Test Item Value Reference Range Interpretation Comments MMA Qnt (test code = MMA Qnt) 281 [facility] BANK [id number] 09:48:00 Test Item Value Reference Range Interpretation Comments ABO/Rh (test code = ABO/Rh) O POS [facility] [id number] 09:48:00 Test Item Value Reference Range Interpretation Comments Antibody Scrn (test Negative (06/24/22 4:48 code = Antibody Scrn) AM) [facility] [id number] 09:48:00 Test Item Value Reference Range Interpretation Comments MMA Qnt (test code = MMA Qnt) 281 [facility] [id number] 09:48:00 Test Item Value Reference Range Interpretation Comments ABO/Rh (test code = ABO/Rh) O POS [facility] [id number] 09:48:00 Test Item Value Reference Range Interpretation Comments Antibody Scrn (test Negative (06/24/22 4:48 code = Antibody Scrn) AM) [facility] [id number] 05:18:00 Test Item Value Reference Range Interpretation Comments Eosinophils # (test code 0.2 See_Comment [A utomated message] The = Eosinophils #) system [facility] generated this result tra nsmitted reference range : <=0.5. The reference r mirela was not used to int erpret this result as normal/abnormal . [facility] [id number] 05:18:00 Test Item Value Reference Range Interpretation Comments Eosinophils # (test code 0.2 See_Comment [A utomated message] The = Eosinophils #) system [facility] generated this result tra nsmitted reference range : <=0.5. The reference r mirela was not used to int erpret this result as normal/abnormal . [facility] [id number] 05:03:00 Test Item Value Reference Range Interpretation Comments Basophils # (test code 0.3 See_Comment [Aut omated message] The = Basophils #) system which generated this result tra nsmitted reference range : <=0.2. The reference r mirela was not used to int erpret this result as normal/abnormal . [facility] [id number] 05:03:00 Test Item Value Reference Range Interpretation Comments Basophils # (test code 0.3 See_Comment [Aut omated message] The = Basophils #) system which generated this result tra nsmitted reference range : <=0.2. The reference r mirela was not used to int erpret this result as normal/abnormal . [facility]2022-09-06 05:03:00 Test Item Value Reference Range Interpretation Comments Folate Lvl (test code = Folate Lvl) 16.6 [facility]2022-09-06 05:03:00 Test Item Value Reference Range Interpretation Comments Ferritin Lvl (test code = Ferritin Lvl) 309 22-037 [facility]2022-09-06 05:03:00 Test Item Value Reference Range Interpretation Comments Vitamin B12 Lvl (test code = Vitamin 123 B12 Lvl) [facility]2022-09-06 05:03:00 Test Item Value Reference Range Interpretation Comments Folate Lvl (test code = Folate Lvl) 16.6 [facility]2022-09-06 05:03:00 Test Item Value Reference Range Interpretation Comments Ferritin Lvl (test code = Ferritin Lvl) 309 22-408 [facility]2022-09-06 05:03:00 Test Item Value Reference Range Interpretation Comments Vitamin B12 Lvl (test code = Vitamin 123 B12 Lvl) [facility]2022-09-06 02:45:00 Test Item Value Reference Range Interpretation Comments Iron (test code = Iron) 37 [facility]2022-09-06 02:45:00 Test Item Value Reference Range Interpretation Comments TIBC (test code = TIBC) 147 [facility]2022-09-06 02:45:00 Test Item Value Reference Range Interpretation Comments % Satur Fe (test code = % Satur Fe) 25 [facility] [id number] 02:45:00 Test Item Value Reference Range Interpretation Comments Vitamin D, 25-OH, Total (test code = 40 Vitamin D, 25-OH, Total) [facility]2022-09-06 02:45:00 Test Item Value Reference Range Interpretation Comments Iron (test code = Iron) 37 [facility]2022-09-06 02:45:00 Test Item Value Reference Range Interpretation Comments TIBC (test code = TIBC) 147 [facility]2022-09-06 02:45:00 Test Item Value Reference Range Interpretation Comments % Satur Fe (test code = % Satur Fe) 25 [place] 532072-09-06 02:45:00 Test Item Value Reference Range Interpretation Comments Vitamin D, 25-OH, Total (test code = 40 Vitamin D, 25-OH, Total) [place] 532072-09-05 02:50:00 Test Item Value Reference Range Interpretation Comments Lactic Acid Lvl (test code = Lactic 3.1 0.5-2.2 Acid Lvl) [place] 532072-09-05 02:50:00 Test Item Value Reference Range Interpretation Comments Lactic Acid Lvl (test code = Lactic 3.1 0.5-2.2 Acid Lvl) [place] 532072-09-04 22:15:00 Test Item Value Reference Range Interpretation Comments Lactic Acid Lvl (test code = Lactic 4.5 0.5-2.2 Acid Lvl) [place] 532072-09-04 22:15:00 Test Item Value Reference Range Interpretation Comments Glucose Lvl (test code = Glucose Lvl) 135 70-99 [place] 532072-09-04 22:15:00 Test Item Value Reference Range Interpretation Comments BUN (test code = BUN) 46 7-22 [place] 532072-09-04 22:15:00 Test Item Value Reference Range Interpretation Comments Creatinine Lvl (test code = Creatinine 1.56 0.50-1.40 Lvl) [facility]2022-09-04 22:15:00 Test Item Value Reference Range Interpretation Comments Sodium Lvl (test code = Sodium Lvl) 140 135-145 [place] 532072-09-04 22:15:00 Test Item Value Reference Range Interpretation Comments Potassium Lvl (test code = Potassium 5.2 3.5-5.1 Lvl) [place] 532072-09-04 22:15:00 Test Item Value Reference Range Interpretation Comments Chloride Lvl (test code = Chloride Lvl) 110 95-109 [place] 532072-09-04 22:15:00 Test Item Value Reference Range Interpretation Comments CO2 (test code = CO2) 22 24-32 [place] 532072-09-04 22:15:00 Test Item Value Reference Range Interpretation Comments Calcium Lvl (test code = Calcium Lvl) 9.1 8.5-10.5 [place] 532072-09-04 22:15:00 Test Item Value Reference Range Interpretation Comments AGAP (test code = AGAP) 13.2 10.0-20.0 [place] 532072-09-04 22:15:00 Test Item Value Reference Range Interpretation Comments eGFR (test code = eGFR) 42 [place] 532072-09-04 22:15:00 Test Item Value Reference Range Interpretation Comments Lactic Acid Lvl (test code = Lactic 4.5 0.5-2.2 Acid Lvl) [place] 532072-09-04 22:15:00 Test Item Value Reference Range Interpretation Comments Glucose Lvl (test code = Glucose Lvl) 135 70-99 [place] 532072-09-04 22:15:00 Test Item Value Reference Range Interpretation Comments BUN (test code = BUN) 46 7-22 [place] 532072-09-04 22:15:00 Test Item Value Reference Range Interpretation Comments Creatinine Lvl (test code = Creatinine 1.56 0.50-1.40 Lvl) [facility]2022-09-04 22:15:00 Test Item Value Reference Range Interpretation Comments Sodium Lvl (test code = Sodium Lvl) 140 135-145 [place] 532072-09-04 22:15:00 Test Item Value Reference Range Interpretation Comments Potassium Lvl (test code = Potassium 5.2 3.5-5.1 Lvl) [place] 532072-09-04 22:15:00 Test Item Value Reference Range Interpretation Comments Chloride Lvl (test code = Chloride Lvl) 110 95-109 [place] 532072-09-04 22:15:00 Test Item Value Reference Range Interpretation Comments CO2 (test code = CO2) 22 24-32 [place] 532072-09-04 22:15:00 Test Item Value Reference Range Interpretation Comments Calcium Lvl (test code = Calcium Lvl) 9.1 8.5-10.5 [place] 532072-09-04 22:15:00 Test Item Value Reference Range Interpretation Comments AGAP (test code = AGAP) 13.2 10.0-20.0 [place] 532072-09-04 22:15:00 Test Item Value Reference Range Interpretation Comments eGFR (test code = eGFR) 42 [facility] [id number] 18:00:00 Test Item Value Reference Range Interpretation Comments HS Troponin I (test code = HS Troponin 7 I) [facility] [id number] 18:00:00 Test Item Value Reference Range Interpretation Comments Glucose Lvl (test code = Glucose Lvl) 128 70-99 [facility]2022-09-04 18:00:00 Test Item Value Reference Range Interpretation Comments BUN (test code = BUN) 43 7-22 [facility] HospitalAragon PharmaceuticalsATRIUM [id number] 18:00:00 Test Item Value Reference Range Interpretation Comments Creatinine Lvl (test code = Creatinine 1.56 0.50-1.40 Lvl) [facility] [id number] 18:00:00 Test Item Value Reference Range Interpretation Comments Sodium Lvl (test code = Sodium Lvl) 139 135-145 [facility] [id number] 18:00:00 Test Item Value Reference Range Interpretation Comments Potassium Lvl (test code = Potassium 4.8 3.5-5.1 Lvl) [facility] [id number] 18:00:00 Test Item Value Reference Range Interpretation Comments Chloride Lvl (test code = Chloride Lvl) 109 95-109 [facility] [id number] 18:00:00 Test Item Value Reference Range Interpretation Comments CO2 (test code = CO2) 23 24-32 [facility] [id number] 18:00:00 Test Item Value Reference Range Interpretation Comments Calcium Lvl (test code = Calcium Lvl) 8.8 8.5-10.5 [facility] [id number] 18:00:00 Test Item Value Reference Range Interpretation Comments AGAP (test code = AGAP) 11.8 10.0-20.0 [facility] [id number] 18:00:00 Test Item Value Reference Range Interpretation Comments eGFR (test code = eGFR) 42 [facility] [id number] 18:00:00 Test Item Value Reference Range Interpretation Comments Magnesium Lvl (test code = Magnesium 2.0 1.8-2.4 Lvl) [facility] [id number] 18:00:00 Test Item Value Reference Range Interpretation Comments Phosphorus (test code = Phosphorus) 3.3 2.5-4.5 [facility] [id number] 18:00:00 Test Item Value Reference Range Interpretation Comments Lactic Acid Lvl (test code = Lactic 7.6 0.5-2.2 Acid Lvl) [facility] TempleNacckgwWMPTIPOQGG0977-82-06 18:00:00 Test Item Value Reference Range Interpretation Comments WBC (test code = WBC) 21.4 3.7-10.4 [facility] TempleMczxhefUYQEQNPPNV0347-01-85 18:00:00 Test Item Value Reference Range Interpretation Comments RBC (test code = RBC) 2.55 4.70-6.10 [facility]dyRNAIAUBRJP0265-[facility] 18:00:00 Test Item Value Reference Range Interpretation Comments Hgb (test code = Hgb) 9.2 14.0-18.0 [facility] TempleGqcaujoMJOYLFZDMI5147-80-16 18:00:00 Test Item Value Reference Range Interpretation Comments Hct (test code = Hct) 27.7 42.0-54.0 [facility] TempleUbhqixhBTMNSAZFXV8388-38-23 18:00:00 Test Item Value Reference Range Interpretation Comments MCV (test code = MCV) 108.6 80.0-94.0 [facility] CenterHblqubyOLSAZCFLQQ4741-53-78 18:00:00 Test Item Value Reference Range Interpretation Comments MCH (test code = MCH) 36.1 pg 27.0-31.0 [facility] TempleOkxmsgcHBKDLXPMPW6435-76-55 18:00:00 Test Item Value Reference Range Interpretation Comments MCHC (test code = MCHC) 33.3 32.0-36.0 [facility] TempleRotcfglVYNJBRHSZP4463-56-85 18:00:00 Test Item Value Reference Range Interpretation Comments RDW (test code = RDW) 13.2 11.5-14.5 [facility] TempleUrdmhrtSWEWRDZTII3242-74-38 18:00:00 Test Item Value Reference Range Interpretation Comments Platelet (test code = Platelet) 195 133-450 [facility] [id number] 18:00:00 Test Item Value Reference Range Interpretation Comments MPV (test code = MPV) 7.8 7.4-10.4 [facility] [id number] 18:00:00 Test Item Value Reference Range Interpretation Comments HS Troponin I (test code = HS Troponin 7 I) [facility] [id number] 18:00:00 Test Item Value Reference Range Interpretation Comments Glucose Lvl (test code = Glucose Lvl) 128 70-99 [place] 532072-09-04 18:00:00 Test Item Value Reference Range Interpretation Comments BUN (test code = BUN) 43 7-22 [place] 532072-09-04 18:00:00 Test Item Value Reference Range Interpretation Comments Creatinine Lvl (test code = Creatinine 1.56 0.50-1.40 Lvl) [facility]2022-09-04 18:00:00 Test Item Value Reference Range Interpretation Comments Sodium Lvl (test code = Sodium Lvl) 139 135-145 [place] [id number] 18:00:00 Test Item Value Reference Range Interpretation Comments Potassium Lvl (test code = Potassium 4.8 3.5-5.1 Lvl) [facility]2022-09-04 18:00:00 Test Item Value Reference Range Interpretation Comments Chloride Lvl (test code = Chloride Lvl) 109 95-109 [place] 532072-09-04 18:00:00 Test Item Value Reference Range Interpretation Comments CO2 (test code = CO2) 23 24-32 [place] 532072-09-04 18:00:00 Test Item Value Reference Range Interpretation Comments Calcium Lvl (test code = Calcium Lvl) 8.8 8.5-10.5 [place] 532072-09-04 18:00:00 Test Item Value Reference Range Interpretation Comments AGAP (test code = AGAP) 11.8 10.0-20.0 [place] 532072-09-04 18:00:00 Test Item Value Reference Range Interpretation Comments eGFR (test code = eGFR) 42 [place] 532072-09-04 18:00:00 Test Item Value Reference Range Interpretation Comments Magnesium Lvl (test code = Magnesium 2.0 1.8-2.4 Lvl) [facility]2022-09-04 18:00:00 Test Item Value Reference Range Interpretation Comments Phosphorus (test code = Phosphorus) 3.3 2.5-4.5 [place] 532072-09-04 18:00:00 Test Item Value Reference Range Interpretation Comments Lactic Acid Lvl (test code = Lactic 7.6 0.5-2.2 Acid Lvl) [facility] TempleTmtcyaoWZUTORSIUH8923-18-94 18:00:00 Test Item Value Reference Range Interpretation Comments WBC (test code = WBC) 21.4 3.7-10.4 [facility] TempleNbttafeWWFTXPDTDL1480-90-68 18:00:00 Test Item Value Reference Range Interpretation Comments RBC (test code = RBC) 2.55 4.70-6.10 [facility] TempleLpzvfusNEXVGQJAZT8202-14-51 18:00:00 Test Item Value Reference Range Interpretation Comments Hgb (test code = Hgb) 9.2 14.0-18.0 [facility] TempleOdpwjmlQLZVXQGVPC5913-41-33 18:00:00 Test Item Value Reference Range Interpretation Comments Hct (test code = Hct) 27.7 42.0-54.0 [facility] TempleOxdtabwRXHMBMYZNI1512-44-59 18:00:00 Test Item Value Reference Range Interpretation Comments MCV (test code = MCV) 108.6 80.0-94.0 [facility] TempleBjsjvreCVPAEELWRE6771-68-50 18:00:00 Test Item Value Reference Range Interpretation Comments MCH (test code = MCH) 36.1 pg 27.0-31.0 [facility] TempleMsctapiVLNJHXXVJZ2477-58-84 18:00:00 Test Item Value Reference Range Interpretation Comments MCHC (test code = MCHC) 33.3 32.0-36.0 [facility] TempleHbqjtkkURFFBALIVQ5336-04-68 18:00:00 Test Item Value Reference Range Interpretation Comments RDW (test code = RDW) 13.2 11.5-14.5 [facility] TempleEzbestsXWJMFPXRDV9866-83-49 18:00:00 Test Item Value Reference Range Interpretation Comments Platelet (test code = Platelet) 195 133-450 [facility] TempleXjmsskuOWHZBZDFWJ9206-05-66 18:00:00 Test Item Value Reference Range Interpretation Comments MPV (test code = MPV) 7.8 7.4-10.4 [facility]2022-09-04 05:02:00 Test Item Value Reference Range Interpretation Comments Glucose Lvl (test code = Glucose Lvl) 124 70-99 [facility]2022-09-04 05:02:00 Test Item Value Reference Range Interpretation Comments BUN (test code = BUN) 43 7-22 [facility]2022-09-04 05:02:00 Test Item Value Reference Range Interpretation Comments Creatinine Lvl (test code = Creatinine 1.67 0.50-1.40 Lvl) [facility]2022-09-04 05:02:00 Test Item Value Reference Range Interpretation Comments Sodium Lvl (test code = Sodium Lvl) 140 135-145 [place] 532072-09-04 05:02:00 Test Item Value Reference Range Interpretation Comments Potassium Lvl (test code = Potassium 5.0 3.5-5.1 Lvl) [facility]2022-09-04 05:02:00 Test Item Value Reference Range Interpretation Comments Chloride Lvl (test code = Chloride Lvl) 111 95-109 [place] 532072-09-04 05:02:00 Test Item Value Reference Range Interpretation Comments CO2 (test code = CO2) 24 24-32 [facility]2022-09-04 05:02:00 Test Item Value Reference Range Interpretation Comments Calcium Lvl (test code = Calcium Lvl) 8.2 8.5-10.5 [facility]2022-09-04 05:02:00 Test Item Value Reference Range Interpretation Comments AGAP (test code = AGAP) 10.0 10.0-20.0 [facility]2022-09-04 05:02:00 Test Item Value Reference Range Interpretation Comments eGFR (test code = eGFR) 39 [facility] TempleEwahyjeTVNSVOKQLO6608-74-46 05:02:00 Test Item Value Reference Range Interpretation Comments WBC (test code = WBC) 17.6 3.7-10.4 [place] 970252-09-04 05:02:00 Test Item Value Reference Range Interpretation Comments RBC (test code = RBC) 2.70 4.70-6.10 [place] 970252-09-04 05:02:00 Test Item Value Reference Range Interpretation Comments Hgb (test code = Hgb) 9.8 14.0-18.0 [place] [address]-09-04 05:02:00 Test Item Value Reference Range Interpretation Comments Hct (test code = Hct) 29.0 42.0-54.0 [place] 970252-09-04 05:02:00 Test Item Value Reference Range Interpretation Comments MCV (test code = MCV) 107.5 80.0-94.0 [facility] TempleAztudacNOJLUFGMZH2417-63-68 05:02:00 Test Item Value Reference Range Interpretation Comments MCH (test code = MCH) 36.4 pg 27.0-31.0 [facility] TemplePwhvzviTZIJUFCGGP2441-44-25 05:02:00 Test Item Value Reference Range Interpretation Comments MCHC (test code = MCHC) 33.9 32.0-36.0 [facility] TempleLxtfqkeOVXOVLJRWF5856-90-88 05:02:00 Test Item Value Reference Range Interpretation Comments RDW (test code = RDW) 13.0 11.5-14.5 [facility] TempleRuqpazqUSYZJFBSVW2773-81-06 05:02:00 Test Item Value Reference Range Interpretation Comments Platelet (test code = Platelet) 176 133-450 [facility] TemplePlslmjuIGGEMHDNHP4948-71-87 05:02:00 Test Item Value Reference Range Interpretation Comments MPV (test code = MPV) 7.6 7.4-10.4 [facility] TempleCwfgutlJZMAPQACMX3757-12-67 05:02:00 Test Item Value Reference Range Interpretation Comments Segs (test code = Segs) 91.5 45.0-75.0 [facility] TempleSrcjgtoYQQLUDNTPV3220-44-51 05:02:00 Test Item Value Reference Range Interpretation Comments Lymphocytes (test code = Lymphocytes) 2.5 20.0-40.0 [facility] TempleJvvhlwlKYDIFAOWMH2475-95-22 05:02:00 Test Item Value Reference Range Interpretation Comments Monocytes (test code = Monocytes) 5.8 2.0-12.0 [facility] TempleUecmannELUYEHPOLD1039-72-13 05:02:00 Test Item Value Reference Range Interpretation Comments Basophils (test code = 0.2 See_Comment [Aut omated message] The Basophils) system which ge nerated this result tra nsmitted reference range : <=1.0. The reference r mirela was not used to int erpret this result as normal/abnormal . [facility] TempleDnggvlkGAGWYKBCEF7901-35-22 05:02:00 Test Item Value Reference Range Interpretation Comments Neutrophils # (test code = Neutrophils 16.1 1.5-8.1 #) [facility] TempleIusaiwiDEXTRDXQWV0711-88-85 05:02:00 Test Item Value Reference Range Interpretation Comments Lymphocytes # (test code = Lymphocytes 0.4 1.0-5.5 #) [facility] TempleNokwqpnKIDKBBOQYW4215-17-77 05:02:00 Test Item Value Reference Range Interpretation Comments Monocytes # (test code 1.0 See_Comment [Aut omated message] The = Monocytes #) system which generated this result tra nsmitted reference range : <=0.8. The reference r mirela was not used to int erpret this result as normal/abnormal . [facility] TempleRcrtomgOYHRRECTRA3583-01-36 05:02:00 Test Item Value Reference Range Interpretation Comments Macrocyte (test code = 2+ *ABN*(06/19/22 Macrocyte) 12:02 AM) [facility]2022-09-04 05:02:00 Test Item Value Reference Range Interpretation Comments Glucose Lvl (test code = Glucose Lvl) 124 70-99 [facility]2022-09-04 05:02:00 Test Item Value Reference Range Interpretation Comments BUN (test code = BUN) 43 7-22 [facility]2022-09-04 05:02:00 Test Item Value Reference Range Interpretation Comments Creatinine Lvl (test code = Creatinine 1.67 0.50-1.40 Lvl) [facility]2022-09-04 05:02:00 Test Item Value Reference Range Interpretation Comments Sodium Lvl (test code = Sodium Lvl) 140 135-145 [facility]2022-09-04 05:02:00 Test Item Value Reference Range Interpretation Comments Potassium Lvl (test code = Potassium 5.0 3.5-5.1 Lvl) [facility]2022-09-04 05:02:00 Test Item Value Reference Range Interpretation Comments Chloride Lvl (test code = Chloride Lvl) 111 95-109 [facility]2022-09-04 05:02:00 Test Item Value Reference Range Interpretation Comments CO2 (test code = CO2) 24 24-32 [facility]2022-09-04 05:02:00 Test Item Value Reference Range Interpretation Comments Calcium Lvl (test code = Calcium Lvl) 8.2 8.5-10.5 [facility]2022-09-04 05:02:00 Test Item Value Reference Range Interpretation Comments AGAP (test code = AGAP) 10.0 10.0-20.0 [facility]2022-09-04 05:02:00 Test Item Value Reference Range Interpretation Comments eGFR (test code = eGFR) 39 [facility] TempleTgkiokqALTIYYDNKS4763-77-80 05:02:00 Test Item Value Reference Range Interpretation Comments WBC (test code = WBC) 17.6 3.7-10.4 [facility] TempleVwxcgktTHHBBYTMOI4960-77-44 05:02:00 Test Item Value Reference Range Interpretation Comments RBC (test code = RBC) 2.70 4.70-6.10 [facility] TempleOeihgwvQUDLPFVOSO8566-29-63 05:02:00 Test Item Value Reference Range Interpretation Comments Hgb (test code = Hgb) 9.8 14.0-18.0 [facility] TempleKgqeuwqTBOZDZLLAO6618-30-57 05:02:00 Test Item Value Reference Range Interpretation Comments Hct (test code = Hct) 29.0 42.0-54.0 [facility] TempleLxwftpmIDUZIQLXAQ6047-32-87 05:02:00 Test Item Value Reference Range Interpretation Comments MCV (test code = MCV) 107.5 80.0-94.0 [facility] TempleHjkrkjlJJSEUGARCY5756-61-46 05:02:00 Test Item Value Reference Range Interpretation Comments MCH (test code = MCH) 36.4 pg 27.0-31.0 [facility] TempleAddimfsFOTNJUQIDL1559-47-17 05:02:00 Test Item Value Reference Range Interpretation Comments MCHC (test code = MCHC) 33.9 32.0-36.0 [facility] TempleLkwmwmwMEFDQKTLOA3834-18-20 05:02:00 Test Item Value Reference Range Interpretation Comments RDW (test code = RDW) 13.0 11.5-14.5 [facility] TempleMcyihtlUUJPISWGZA0384-06-82 05:02:00 Test Item Value Reference Range Interpretation Comments Platelet (test code = Platelet) 176 133-450 [facility] TempleTluppsdVIUJLDIUVM3659-60-40 05:02:00 Test Item Value Reference Range Interpretation Comments MPV (test code = MPV) 7.6 7.4-10.4 [facility] TempleJiebispTIUCNGDNMN7422-82-39 05:02:00 Test Item Value Reference Range Interpretation Comments Segs (test code = Segs) 91.5 45.0-75.0 [facility] TempleWiomsgoTCOIXZSMAH5800-20-09 05:02:00 Test Item Value Reference Range Interpretation Comments Lymphocytes (test code = Lymphocytes) 2.5 20.0-40.0 [facility] TempleXnnuxybLRMGHKFBXN5881-82-99 05:02:00 Test Item Value Reference Range Interpretation Comments Monocytes (test code = Monocytes) 5.8 2.0-12.0 [facility] AustinBofrcxyBJWICGHRBB1281-79-07 05:02:00 Test Item Value Reference Range Interpretation Comments Basophils (test code = 0.2 See_Comment [Aut omated message] The Basophils) system which ge nerated this result tra nsmitted reference range : <=1.0. The reference r mirela was not used to int erpret this result as normal/abnormal . [facility] AustinZituycqCXDOHVZHAY6240-11-53 05:02:00 Test Item Value Reference Range Interpretation Comments Neutrophils # (test code = Neutrophils 16.1 1.5-8.1 #) [facility]DS[facility]AH[facility]JA8625[facility]33-61 05:02:00 Test Item Value Reference Range Interpretation Comments Lymphocytes # (test code = Lymphocytes 0.4 1.0-5.5 #) [facility] CenterZbwbdkfPGOGVUOEFT3759-94-73 05:02:00 Test Item Value Reference Range Interpretation Comments Monocytes # (test code 1.0 See_Comment [Aut omated message] The = Monocytes #) system which generated this result tra nsmitted reference range : <=0.8. The reference r mirela was not used to int erpret this result as normal/abnormal . [facility] AustinCxuhyteASGUZFIJLH4872-69-74 05:02:00 Test Item Value Reference Range Interpretation Comments Macrocyte (test code = 2+ *ABN*(06/19/22 Macrocyte) 12:02 AM[facility] Test Item Value Reference Range Interpretation Comments HS Troponin I (test code = HS Troponin 10 I) [facility] 18:40:00 Test Item Value Reference Range Interpretation Comments HS Troponin I (test code = HS Troponin 10 I) [facility] Lib[place]to SYKYKFF2653-00-62 13:09:00 Test Item Value Reference Range Interpretation Comments ABO/Rh (test code = ABO/Rh) O POS [facility] [place] [id number] 13:09:00 Test Item Value Reference Range Interpretation Comments Antibody Scrn (test Negative (06/18/22 8:09 code = Antibody Scrn) AM) [facility] [place] [id number] 13:09:00 Test Item Value Reference Range Interpretation Comments ABO/Rh (test code = ABO/Rh) [facility] [id number] 13:09:00 Test Item Value Reference Range Interpretation Comments Antibody Scrn (test Negative (06/18/22 8:09 code = Antibody Scrn) AM) [facility] AustinMuquaknCLAZNHYKBE3897-41-83 12:36:00 Test Item Value Reference Range Interpretation Comments Coronavirus (COVID-19) Not Detected (06/18/22 MANASA (test code = 7:36 AM) Coronavirus (COVID-19) MANASA) [facility] AustinMvuymhhWCZZOEVZYZ2137-81-18 12:36:00 Test Item Value Reference Range Interpretation Comments Coronavirus (COVID-19) Not Detected (06/18/22 MANASA (test code = 7:36 AM) Coronavirus (COVID-19) MANASA) [facility] AND [id number] 11:10:00 Test Item Value Reference Range Interpretation Comments UA Sq Epi (test code = UA Sq Occasional /LPF Epi) [facility] AND [id number] 11:10:00 Test Item Value Reference Range Interpretation Comments UA WBC (test code = 1 See_Comment [Automa sivakumar message] The UA WBC) system which ge nerated this result transmit sivakumar reference range : <=5. The reference range was not used to interpr et this result as jenelle l/abnormal. [facility] AND [id number] 11:10:00 Test Item Value Reference Range Interpretation Comments UA RBC (test code = 1 See_Comment [Automa sivakumar message] The UA RBC) system which ge nerated this result transmit sivakumar reference range : <=2. The reference range was not used to interpr et this result as jenelle l/abnormal. [facility] AND [id number] 11:10:00 Test Item Value Reference Range Interpretation Comments UA Mucus (test code = UA Mucus) Few /LPF [facility] AND [id number] 11:10:00 Test Item Value Reference Range Interpretation Comments UA Hyal Cast (test 5 See_Comment [Automat ed message] The code = UA Hyal Cast) system which generated this result transmit sivakumar reference range : <=2. The reference range was not used to interpr et this result as jenelle l/abnormal. [facility] AND [id number] 11:10:00 Test Item Value Reference Range Interpretation Comments UA Color (test code = [place] *ABN*(06/18/22 UA Color) 6:10 AM) [facility] AND [id number] 11:10:00 Test Item Value Reference Range Interpretation Comments UA Turbidity (test code = Clear (06/18/22 6:10 UA Turbidity) AM) [facility] AND [id number] 11:10:00 Test Item Value Reference Range Interpretation Comments UA Spec Grav (test >=1.030 *ABN*(06/18/22 code = UA Spec Grav) 6:10 AM) [facility] AND [id number] 11:10:00 Test Item Value Reference Range Interpretation Comments UA pH (test code = UA pH) 6.0 1 5.0-8.0 [facility] AND [id number] 11:10:00 Test Item Value Reference Range Interpretation Comments UA Protein (test code Negative (06/18/22 6:10 = UA Protein) AM) [facility] AND [id number] 11:10:00 Test Item Value Reference Range Interpretation Comments UA Glucose (test code Negative (06/18/22 6:10 = UA Glucose) AM) [facility] AND [id number] 11:10:00 Test Item Value Reference Range Interpretation Comments UA Ketones (test code = Trace *ABN*(06/18/22 UA Ketones) 6:10 AM) [facility] AND [id number] 11:10:00 Test Item Value Reference Range Interpretation Comments UA Bili (test code = Small *ABN*(06/18/22 6:10 UA Bili) AM) [facility] AND [id number] 11:10:00 Test Item Value Reference Range Interpretation Comments UA Blood (test code = Negative (06/18/22 6:10 UA Blood) AM) [facility] AND [id number] 11:10:00 Test Item Value Reference Range Interpretation Comments UA Urobilinogen (test code = UA 0.2 0.1-1.0 Urobilinogen) [facility] AND [id number] 11:10:00 Test Item Value Reference Range Interpretation Comments UA Nitrite (test code Negative (06/18/22 6:10 = UA Nitrite) AM) [facility] [id number] 11:10:00 Test Item Value Reference Range Interpretation Comments UA Leuk Est (test Negative (06/18/22 6:10 code = UA Leuk Est) AM) [facility] [id number] 11:10:00 Test Item Value Reference Range Interpretation Comments UA Sq Epi (test code = UA Sq Occasional /LPF Epi) [facility] [id number] 11:10:00 Test Item Value Reference Range Interpretation Comments UA WBC (test code = 1 See_Comment [Automa sivakumar message] The UA WBC) system which ge nerated this result transmit sivakumar reference range : <=5. The reference range was not used to interpr et this result as jenelle l/abnormal. [facility] AND [id number] 11:10:00 Test Item Value Reference Range Interpretation Comments UA RBC (test code = 1 See_Comment [Automa sivakumar message] The UA RBC) system which ge nerated this result transmit sivakumar reference range : <=2. The reference range was not used to interpr et this result as jenelle l/abnormal. [facility] [id number] 11:10:00 Test Item Value Reference Range Interpretation Comments UA Mucus (test code = UA Mucus) Few /LPF [facility] AND [id number] 11:10:00 Test Item Value Reference Range Interpretation Comments UA Hyal Cast (test 5 See_Comment [Automat ed message] The code = UA Hyal Cast) system which generated this result transmit sivakumar reference range : <=2. The reference range was not used to interpr et this result as jenelle l/abnormal. [facility] AND [id number] 11:10:00 Test Item Value Reference Range Interpretation Comments UA Color (test code = [place] *ABN*(06/18/22 UA Color) 6:10 AM) [facility] [id number] 11:10:00 Test Item Value Reference Range Interpretation Comments UA Turbidity (test code = Clear (06/18/22 6:10 UA Turbidity) AM) [facility] AND [id number] 11:10:00 Test Item Value Reference Range Interpretation Comments UA Spec Grav (test >=1.030 *ABN*(06/18/22 code = UA Spec Grav) 6:10 AM) [facility] AND [id number] 11:10:00 Test Item Value Reference Range Interpretation Comments UA pH (test code = UA pH) 6.0 1 5.0-8.0 [facility] AND [id number] 11:10:00 Test Item Value Reference Range Interpretation Comments UA Protein (test code Negative (06/18/22 6:10 = UA Protein) AM) [facility] AND [id number] 11:10:00 Test Item Value Reference Range Interpretation Comments UA Glucose (test code Negative (06/18/22 6:10 = UA Glucose) AM) [facility] AND [id number] 11:10:00 Test Item Value Reference Range Interpretation Comments UA Ketones (test code = Trace *ABN*(06/18/22 UA Ketones) 6:10 AM) [facility] AND [id number] 11:10:00 Test Item Value Reference Range Interpretation Comments UA Bili (test code = Small *ABN*(06/18/22 6:10 UA Bili) AM) [facility] AND [id number] 11:10:00 Test Item Value Reference Range Interpretation Comments UA Blood (test code = Negative (06/18/22 6:10 UA Blood) AM) [facility] AND [id number] 11:10:00 Test Item Value Reference Range Interpretation Comments UA Urobilinogen (test code = UA 0.2 0.1-1.0 Urobilinogen) [facility] AND [id number] 11:10:00 Test Item Value Reference Range Interpretation Comments UA Nitrite (test code Negative (06/18/22 6:10 = UA Nitrite) AM) [facility] AND [id number] 11:10:00 Test Item Value Reference Range Interpretation Comments UA Leuk Est (test Negative (06/18/22 6:10 code = UA Leuk Est) AM) [facility] TempleNyravgbDYFHSOVDHR0363-16-60 10:10:00 Test Item Value Reference Range Interpretation Comments ACT (TEG) Rapid (test code = ACT (TEG) 105 s 86-118 Rapid) [facility] TempleFzgwdhcUXFAQYRSHU2653-65-88 10:10:00 Test Item Value Reference Range Interpretation Comments Split Point Rapid (test code = Split 0.3 min Point Rapid) [place] [address]-09-03 10:10:00 Test Item Value Reference Range Interpretation Comments R-time Rapid (test code = R-time 0.6 min 0.4-0.7 Rapid) [place] [address]-09-03 10:10:00 Test Item Value Reference Range Interpretation Comments K-time Rapid (test code = K-time 1.5 min 0.6-2.3 Rapid) [place] [address]-09-03 10:10:00 Test Item Value Reference Range Interpretation Comments Angle Rapid (test code = Angle 71 degrees 64-80 Rapid) [place] [address]-09-03 10:10:00 Test Item Value Reference Range Interpretation Comments Max Amplitude Rapid (test code = Max 64 mm 52-71 Amplitude Rapid) [place] [address]-09-03 10:10:00 Test Item Value Reference Range Interpretation Comments G-value Rapid (test code = G-value 8.8 5.0-11.6 Rapid) [place] [address]-09-03 10:10:00 Test Item Value Reference Range Interpretation Comments Estimated % Lysis Rapid 1.1 See_Comment [Au tomated message] The (test code = Estimated syste m which generated % Lysis Rapid) this result t ransmitted reference range : <=7.5. The reference r mirela was not used to int erpret this result as normal/abnormal . [place] 970252-09-03 10:10:00 Test Item Value Reference Range Interpretation Comments ACT (TEG) Rapid (test code = ACT (TEG) 105 s 86-118 Rapid) [place] [address]-09-03 10:10:00 Test Item Value Reference Range Interpretation Comments Split Point Rapid (test code = Split 0.3 min Point Rapid) [place] [address]-09-03 10:10:00 Test Item Value Reference Range Interpretation Comments R-time Rapid (test code = R-time 0.6 min 0.4-0.7 Rapid) [place] [address]-09-03 10:10:00 Test Item Value Reference Range Interpretation Comments K-time Rapid (test code = K-time 1.5 min 0.6-2.3 Rapid) [facility] TempleVnelazgFZFECWIGCY7529-69-86 10:10:00 Test Item Value Reference Range Interpretation Comments Angle Rapid (test code = Angle 71 degrees 64-80 Rapid) [place] 9[address]252-09-03 10:10:00 Test Item Value Reference Range Interpretation Comments Max Amplitude Rapid (test code = Max 64 mm 52-71 Amplitude Rapid) [place]252-09-03 10:10:00 Test Item Value Reference Range Interpretation Comments G-value Rapid (test code = G-value 8.8 5.0-11.6 Rapid) [place] [address]-09-03 10:10:00 Test Item Value Reference Range Interpretation Comments Estimated % Lysis Rapid 1.1 See_Comment [Au tomated message] The (test code = Estimated syste m which generated % Lysis Rapid) this result t ransmitted reference range : <=7.5. The reference r mirela was not used to int erpret this result as normal/abnormal . [facility] TempleXlsxhzeYLWSLLHJOQ9369-65-48 08:19:57 Test Item Value Reference Range Interpretation Comments WBC X 10x3 (test code = WBC X 10x3) 23.6 3.7-10.4 [place] [address]-09-03 08:19:57 Test Item Value Reference Range Interpretation Comments RBC X 10x6 (test code = RBC X 10x6) 3.63 4.70-6.10 [place] [address]-09-03 08:19:57 Test Item Value Reference Range Interpretation Comments Hgb (test code = Hgb) 13.0 14.0-18.0 [place] [address]-09-03 08:19:57 Test Item Value Reference Range Interpretation Comments Hct (test code = Hct) 38.9 42.0-54.0 [place] [address]-09-03 08:19:57 Test Item Value Reference Range Interpretation Comments MCV (test code = MCV) 107.3 80.0-94.0 [place] [address]-09-03 08:19:57 Test Item Value Reference Range Interpretation Comments MCH (test code = MCH) 35.9 pg 27.0-31.0 [place] [address]-09-03 08:19:57 Test Item Value Reference Range Interpretation Comments MCHC (test code = MCHC) 33.5 32.0-36.0 [place] [address]-09-03 08:19:57 Test Item Value Reference Range Interpretation Comments RDW (test code = RDW) 12.9 11.5-14.5 [place] [address]-09-03 08:19:57 Test Item Value Reference Range Interpretation Comments Platelet (test code = Platelet) 294 133-450 [place] 970252-09-03 08:19:57 Test Item Value Reference Range Interpretation Comments MPV (test code = MPV) 7.3 7.4-10.4 [place] [address]-09-03 08:19:57 Test Item Value Reference Range Interpretation Comments RBC Morph (test code = Normal (06/18/22 3:19 AM) RBC Morph) [place] [address]-09-03 08:19:57 Test Item Value Reference Range Interpretation Comments Plt Morph (test code = See Note 2(06/18/22 3:19 Plt Morph) AM) [place] [address]-09-03 08:19:57 Test Item Value Reference Range Interpretation Comments Segs (test code = Segs) 89.5 45.0-75.0 [place] [address]-09-03 08:19:57 Test Item Value Reference Range Interpretation Comments Lymphocytes (test code = Lymphocytes) 2.6 20.0-40.0 [place] [address]-09-03 08:19:57 Test Item Value Reference Range Interpretation Comments Monocytes (test code = Monocytes) 7.4 2.0-12.0 [place] [address]-09-03 08:19:57 Test Item Value Reference Range Interpretation Comments Basophils (test code = 0.5 See_Comment [Aut omated message] The Basophils) system which ge nerated this result tra nsmitted reference range : <=1.0. The reference r mirela was not used to int erpret this result as normal/abnormal . [address]09-03 08:19:57 Test Item Value Reference Range Interpretation Comments Neutrophils # (test code = Neutrophils 21.2 1.5-8.1 #) [place] [address]-09-03 08:19:57 Test Item Value Reference Range Interpretation Comments Lymphocytes # (test code = Lymphocytes 0.6 1.0-5.5 #) [facility] TempleHqqxnosNQQGSWBAWH2474-24-01 08:19:57 Test Item Value Reference Range Interpretation Comments Monocytes # (test code 1.7 See_Comment [Aut omated message] The = Monocytes #) system which generated this result tra nsmitted reference range : <=0.8. The reference r mirela was not used to int erpret this result as normal/abnormal . [place] [address]252-09-03 08:19:57 Test Item Value Reference Range Interpretation Comments Basophils # (test code 0.1 See_Comment [Aut omated message] The = Basophils #) system which generated this result tra nsmitted reference range : <=0.2. The reference r mirela was not used to int erpret this result as normal/abnormal . [place] [address]252-09-03 08:19:57 Test Item Value Reference Range Interpretation Comments Macrocyte (test code = 2+ *ABN*(06/18/22 3:19 Macrocyte) AM) [facility] TempleNtomxspOLMVOEKTXR3698-68-06 08:19:57 Test Item Value Reference Range Interpretation Comments Toxic Gran (test code = Toxic Occasional Gran) [facility] TempleImpxjasKABRFYFPNO1952-21-73 08:19:57 Test Item Value Reference Range Interpretation Comments Large Plt (test code = Large Plt) Occasional [place] 970252-09-03 08:19:57 Test Item Value Reference Range Interpretation Comments WBC X 10x3 (test code = WBC X 10x3) 23.6 3.7-10.4 [place] [address]-09-03 08:19:57 Test Item Value Reference Range Interpretation Comments RBC X 10x6 (test code = RBC X 10x6) 3.63 4.70-6.10 [place] [address]-09-03 08:19:57 Test Item Value Reference Range Interpretation Comments Hgb (test code = Hgb) 13.0 14.0-18.0 [place] [address]-09-03 08:19:57 Test Item Value Reference Range Interpretation Comments Hct (test code = Hct) 38.9 42.0-54.0 [place] [address]-09-03 08:19:57 Test Item Value Reference Range Interpretation Comments MCV (test code = MCV) 107.3 80.0-94.0 [place] [address]-09-03 08:19:57 Test Item Value Reference Range Interpretation Comments MCH (test code = MCH) 35.9 pg 27.0-31.0 [facility] TempleVhdpkqqNPBARLXGOA3294-75-35 08:19:57 Test Item Value Reference Range Interpretation Comments MCHC (test code = MCHC) 33.5 32.0-36.0 [facility] TempleZkavmruUOVPTSLTAL6143-01-53 08:19:57 Test Item Value Reference Range Interpretation Comments RDW (test code = RDW) 12.9 11.5-14.5 [place] [address]-09-03 08:19:57 Test Item Value Reference Range Interpretation Comments Platelet (test code = Platelet) 294 133-450 [facility] TempleBrjqddbHADGFFUUHH7131-00-27 08:19:57 Test Item Value Reference Range Interpretation Comments MPV (test code = MPV) 7.3 7.4-10.4 [facility] TempleZgkjyxaGKCIENFOBF9072-45-84 08:19:57 Test Item Value Reference Range Interpretation Comments RBC Morph (test code = Normal (06/18/22 3:19 AM) RBC Morph) [facility] TempleTmrglpxDLPFGMHMWY7421-76-43 08:19:57 Test Item Value Reference Range Interpretation Comments Plt Morph (test code = See Note 2(06/18/22 3:19 Plt Morph) AM) [facility] TempleWqyxjoiTHQURNVQVR1971-62-82 08:19:57 Test Item Value Reference Range Interpretation Comments Segs (test code = Segs) 89.5 45.0-75.0 [facility] TempleIwydjecWCRJDKSAAT3362-41-81 08:19:57 Test Item Value Reference Range Interpretation Comments Lymphocytes (test code = Lymphocytes) 2.6 20.0-40.0 [place] [address]-09-03 08:19:57 Test Item Value Reference Range Interpretation Comments Monocytes (test code = Monocytes) 7.4 2.0-12.0 [place] [address]-09-03 08:19:57 Test Item Value Reference Range Interpretation Comments Basophils (test code = 0.5 See_Comment [Aut omated message] The Basophils) system which ge nerated this result tra nsmitted reference range : <=1.0. The reference r mirela was not used to int erpret this result as normal/abnormal . [place] [address]-09-03 08:19:57 Test Item Value Reference Range Interpretation Comments Neutrophils # (test code = Neutrophils 21.2 1.5-8.1 #) [facility] TempleRtnwzelBIITYZXWIN3097-22-91 08:19:57 Test Item Value Reference Range Interpretation Comments Lymphocytes # (test code = Lymphocytes 0.6 1.0-5.5 #) [facility] TempleLhqfwpkJWFATTYUKI7197-56-12 08:19:57 Test Item Value Reference Range Interpretation Comments Monocytes # (test code 1.7 See_Comment [Aut omated message] The = Monocytes #) system which generated this result tra nsmitted reference range : <=0.8. The reference r mirela was not used to int erpret this result as normal/abnormal . [place] [address]-09-03 08:19:57 Test Item Value Reference Range Interpretation Comments Basophils # (test code 0.1 See_Comment [Aut omated message] The = Basophils #) system which generated this result tra nsmitted reference range : <=0.2. The reference r mirela was not used to int erpret this result as normal/abnormal . [facility] TempleIwcfcabLWNCELIAQW2961-32-01 08:19:57 Test Item Value Reference Range Interpretation Comments Macrocyte (test code = 2+ *ABN*(06/18/22 3:19 Macrocyte) AM) [place] [address]-09-03 08:19:57 Test Item Value Reference Range Interpretation Comments Toxic Gran (test code = Toxic Occasional Gran) [facility] TempleEoxkbeqZVHGXQXIVH6658-20-71 08:19:57 Test Item Value Reference Range Interpretation Comments Large Plt (test code = Large Plt) Occasional [facility]UxxeiooQNWJEXUQXICB7596-78-81 17:27:00 Test Item Value Reference Range Interpretation Comments eGFR (test code = eGFR) 70 [facility] HospitalNfahsjrYOJLZUIHIYIO6043-06-49 17:27:00 Test Item Value Reference Range Interpretation Comments BUN (test code = BUN) 16 7-22 [facility] HospitalRustfbxUWAPNKDFTRJY7728-77-17 17:27:00 Test Item Value Reference Range Interpretation Comments Potassium Lvl (test code = Potassium 3.7 3.5-5.1 Lvl) [facility] HospitalRcegixlZQEURLSBSWUO6218-89-27 17:27:00 Test Item Value Reference Range Interpretation Comments Glucose Lvl (test code = Glucose Lvl) 87 70-99 [facility] HospitalNfnmhrlWTKGGRCJNYHO4225-52-19 17:27:00 Test Item Value Reference Range Interpretation Comments Sodium Lvl (test code = Sodium Lvl) 139 135-145 [facility] HospitalGicdehbRYYHHZHGORFT8865-74-49 17:27:00 Test Item Value Reference Range Interpretation Comments CO2 (test code = CO2) 23 24-32 [facility] HospitalCgddjkfDYMLKTSOYZIY5031-22-35 17:27:00 Test Item Value Reference Range Interpretation Comments Chloride Lvl (test code = Chloride Lvl) 105 95-109 [facility] HospitalDjpfpxkXPBIHOJOFULU9028-43-48 17:27:00 Test Item Value Reference Range Interpretation Comments Calcium Lvl (test code = Calcium Lvl) 8.8 8.5-10.5 [facility] HospitalFevwfxiQASIYXARTHKS6800-11-56 17:27:00 Test Item Value Reference Range Interpretation Comments Creatinine Lvl (test code = Creatinine 0.98 0.50-1.40 Lvl) [facility] TempleVgkcwasUEEFWKBBVX7318-14-41 17:27:00 Test Item Value Reference Range Interpretation Comments INR (test code = INR) 1.04 1 0.85-1.17 [facility] TempleWbsuzzzDTFLKZSZFS2242-41-75 17:27:00 Test Item Value Reference Range Interpretation Comments PT (test code = PT) 13.6 s 12.0-14.7 [facility] TempleHwrgoslKXHCETUXPR1158-29-01 17:27:00 Test Item Value Reference Range Interpretation Comments PTT (test code = PTT) 30.2 s 22.9-35.8 [facility] TempleWipbyofWXLZDANZPA1133-03-31 17:27:00 Test Item Value Reference Range Interpretation Comments Platelet (test code = Platelet) 227 133-450 [facility] TempleSredrxaWDMAUPUBKD7571-78-78 17:27:00 Test Item Value Reference Range Interpretation Comments MPV (test code = MPV) 7.6 7.4-10.4 [facility] TempleZmakyekNKGHVEKJKS1253-70-06 17:27:00 Test Item Value Reference Range Interpretation Comments MCH (test code = MCH) 36.6 pg 27.0-31.0 [facility] TempleOgttqdnXUCALUJSDH8407-87-60 17:27:00 Test Item Value Reference Range Interpretation Comments RDW (test code = RDW) 13.1 11.5-14.5 [facility] TempleRwszplrZVJGONRBQL6815-84-50 17:27:00 Test Item Value Reference Range Interpretation Comments MCHC (test code = MCHC) 34.3 32.0-36.0 [facility] TempleQilblbiWIMGMNETVX2777-12-21 17:27:00 Test Item Value Reference Range Interpretation Comments RBC (test code = RBC) 4.30 4.70-6.10 [facility] TempleXcsiufgEELRPNCYVD5900-40-60 17:27:00 Test Item Value Reference Range Interpretation Comments Hgb (test code = Hgb) 15.7 14.0-18.0 [facility] TemplePvaleqbSOIEQJVDPQ0223-44-17 17:27:00 Test Item Value Reference Range Interpretation Comments Hct (test code = Hct) 45.8 42.0-54.0 [facility] TempleAzzimerEOOVSZLVYM1447-82-58 17:27:00 Test Item Value Reference Range Interpretation Comments MCV (test code = MCV) 106.5 80.0-94.0 [facility] TempleUqudhurUWKVQNAPXC1435-40-15 17:27:00 Test Item Value Reference Range Interpretation Comments WBC (test code = WBC) 9.6 3.7-10.4 [facility] TempleDtwfwndDONTVYXANT1874-34-66 17:27:00 Test Item Value Reference Range Interpretation Comments Eosinophils # (test code 0.1 See_Comment [A utomated message] The = Eosinophils #) system whic h generated this result tra nsmitted reference range : <=0.5. The reference r mirela was not used to int erpret this result as normal/abnormal . [facility] TempleQbfmqeaUNNIMHQYMT1257-87-24 17:27:00 Test Item Value Reference Range Interpretation Comments Basophils # (test code 0.1 See_Comment [Aut omated message] The = Basophils #) system which generated this result tra nsmitted reference range : <=0.2. The reference r mirela was not used to int erpret this result as normal/abnormal . [facility] TempleNvlacgfMBQJVHJKKY3436-06-65 17:27:00 Test Item Value Reference Range Interpretation Comments Macrocyte (test code = 2+ *ABN*(11/15/17 Macrocyte) 11:27 AM) [facility] TempleAtycdxyDVOGTEDNIX3615-84-64 17:27:00 Test Item Value Reference Range Interpretation Comments Basophils (test code = 1.0 See_Comment [Aut omated message] The Basophils) system which ge nerated this result tra nsmitted reference range : <=1.0. The reference r mirela was not used to int erpret this result as normal/abnormal . [facility] TempleOtzaiowXLVBKMFFKM8374-24-55 17:27:00 Test Item Value Reference Range Interpretation Comments Monocytes # (test code 1.1 See_Comment [Aut omated message] The = Monocytes #) system which generated this result tra nsmitted reference range : <=0.8. The reference r mirela was not used to int erpret this result as normal/abnormal . [facility] TempleLweszeyOPPSKRENKN8616-42-66 17:27:00 Test Item Value Reference Range Interpretation Comments Segs-Bands # (test code = Segs-Bands #) 7.2 1.5-8.1 [facility] TempleBsapbtpLHHYXJNACZ7308-18-46 17:27:00 Test Item Value Reference Range Interpretation Comments Lymphocytes # (test code = Lymphocytes 1.1 1.0-5.5 #) [facility] TempleGcefdqqPBLCEPOAZL1903-80-55 17:27:00 Test Item Value Reference Range Interpretation Comments Segs (test code = Segs) 74.8 45.0-75.0 [facility] TempleTkpdsulWQMVXIXTXI6111-06-18 17:27:00 Test Item Value Reference Range Interpretation Comments Lymphocytes (test code = Lymphocytes) 11.4 20.0-40.0 [facility] TempleJeimdebWRQIWBGHPT5830-71-87 17:27:00 Test Item Value Reference Range Interpretation Comments Eosinophils (test code = 1.4 See_Comment [A utomated message] The Eosinophils) system which ge nerated this result tra nsmitted reference range : <=4.0. The reference r mirela was not used to int erpret this result as normal/abnormal . [facility] TempleGzeeiwhSTSQIEAMDF3302-49-45 17:27:00 Test Item Value Reference Range Interpretation Comments Monocytes (test code = Monocytes) 11.4 2.0-12.0 [facility] HospitalHpgubblVZVSMWSAJLMZ6247-13-72 17:27:00 Test Item Value Reference Range Interpretation Comments AGAP (test code = AGAP) 14.7 10.0-20.0 [facility] HospitalKyrjaocNBMUKHCQNXVJ3649-75-78 17:27:00 Test Item Value Reference Range Interpretation Comments eGFR (test code = eGFR) 70 [facility] HospitalGtyemjfOHVJNVEKVTSX7136-07-10 17:27:00 Test Item Value Reference Range Interpretation Comments BUN (test code = BUN) 16 7-22 [facility] HospitalEbmonuhYMSZXICJVCNK3135-12-91 17:27:00 Test Item Value Reference Range Interpretation Comments Potassium Lvl (test code = Potassium 3.7 3.5-5.1 Lvl) [facility] HospitalVebfqcqZKFYBJZFQCZW7724-83-85 17:27:00 Test Item Value Reference Range Interpretation Comments Glucose Lvl (test code = Glucose Lvl) 87 70-99 [facility] HospitalFijdisaXPTYCFKVAKOT3967-84-00 17:27:00 Test Item Value Reference Range Interpretation Comments Sodium Lvl (test code = Sodium Lvl) 139 135-145 [facility] HospitalIdwhayqQTIPRNQCFVHG8279-37-26 17:27:00 Test Item Value Reference Range Interpretation Comments CO2 (test code = CO2) 23 24-32 [facility] HospitalJmtfwzeLEQWCTSSYHEC4367-73-25 17:27:00 Test Item Value Reference Range Interpretation Comments Chloride Lvl (test code = Chloride Lvl) 105 95-109 [facility] HospitalOdjeqokVKSBSLJTHRLG3749-43-30 17:27:00 Test Item Value Reference Range Interpretation Comments Calcium Lvl (test code = Calcium Lvl) 8.8 8.5-10.5 [facility] HospitalSavwskmHCFHVPYTISYI2646-85-92 17:27:00 Test Item Value Reference Range Interpretation Comments Creatinine Lvl (test code = Creatinine 0.98 0.50-1.40 Lvl) [facility] TempleGlxshsaLQOEETJGUB2875-12-81 17:27:00 Test Item Value Reference Range Interpretation Comments INR (test code = INR) 1.04 1 0.85-1.17 [facility] TempleIlehjsxOCYIEPRPEG3091-09-99 17:27:00 Test Item Value Reference Range Interpretation Comments PT (test code = PT) 13.6 s 12.0-14.7 [facility] TempleDqerrezIOMHTJSFVX4991-10-16 17:27:00 Test Item Value Reference Range Interpretation Comments PTT (test code = PTT) 30.2 s 22.9-35.8 [facility] TempleDptvudcJXSXGEJZTE6258-21-12 17:27:00 Test Item Value Reference Range Interpretation Comments Platelet (test code = Platelet) 227 133-450 [facility] TempleGdaambdZBTWNRIOLT5135-71-92 17:27:00 Test Item Value Reference Range Interpretation Comments MPV (test code = MPV) 7.6 7.4-10.4 [facility] TempleYwkljlbWPQFGSJMEF0703-27-24 17:27:00 Test Item Value Reference Range Interpretation Comments MCH (test code = MCH) 36.6 pg 27.0-31.0 [facility] TempleIjxgmtiNLZIJEOQZJ9837-95-48 17:27:00 Test Item Value Reference Range Interpretation Comments RDW (test code = RDW) 13.1 11.5-14.5 [facility] TempleVrunheqVMDITYKWQR3754-85-30 17:27:00 Test Item Value Reference Range Interpretation Comments MCHC (test code = MCHC) 34.3 32.0-36.0 [facility] TempleLjgptjnBXLTZGVVXO8034-85-12 17:27:00 Test Item Value Reference Range Interpretation Comments RBC (test code = RBC) 4.30 4.70-6.10 [facility] TempleXqeczlxGOKLFOBKWT1235-08-20 17:27:00 Test Item Value Reference Range Interpretation Comments Hgb (test code = Hgb) 15.7 14.0-18.0 [facility] TempleVkbndvxFJGZSFIYJN0816-60-38 17:27:00 Test Item Value Reference Range Interpretation Comments Hct (test code = Hct) 45.8 42.0-54.0 [facility] TempleJfjdfzwNHFXZVKFCL7467-80-10 17:27:00 Test Item Value Reference Range Interpretation Comments MCV (test code = MCV) 106.5 80.0-94.0 [facility] TempleAvjcbqbMDGGXARJJD8406-06-68 17:27:00 Test Item Value Reference Range Interpretation Comments WBC (test code = WBC) 9.6 3.7-10.4 [facility] TempleEkzdrpmMINXWJBZHB3781-56-13 17:27:00 Test Item Value Reference Range Interpretation Comments Eosinophils # (test code 0.1 See_Comment [A utomated message] The = Eosinophils #) system whic h generated this result tra nsmitted reference range : <=0.5. The reference r mirela was not used to int erpret this result as normal/abnormal . [facility] TempleKquomwfORZCOFWCGY2768-23-00 17:27:00 Test Item Value Reference Range Interpretation Comments Basophils # (test code 0.1 See_Comment [Aut omated message] The = Basophils #) system which generated this result tra nsmitted reference range : <=0.2. The reference r mirela was not used to int erpret this result as normal/abnormal . [facility] TempleWkfwhxdWJAEATVCDU0427-45-65 17:27:00 Test Item Value Reference Range Interpretation Comments Macrocyte (test code = 2+ *ABN*(11/15/17 Macrocyte) 11:27 AM) [facility] TempleGwatnmlRFFBDZIYPS5514-09-08 17:27:00 Test Item Value Reference Range Interpretation Comments Basophils (test code = 1.0 See_Comment [Aut omated message] The Basophils) system which ge nerated this result tra nsmitted reference range : <=1.0. The reference r mirela was not used to int erpret this result as normal/abnormal . [facility] TempleOfqbdewYPGNUEZLOH6524-34-13 17:27:00 Test Item Value Reference Range Interpretation Comments Monocytes # (test code 1.1 See_Comment [Aut omated message] The = Monocytes #) system which generated this result tra nsmitted reference range : <=0.8. The reference r mirela was not used to int erpret this result as normal/abnormal . [facility] TempleJvryrffTYDIZWQRUC2038-10-23 17:27:00 Test Item Value Reference Range Interpretation Comments Segs-Bands # (test code = Segs-Bands #) 7.2 1.5-8.1 [facility] TempleBryhesvBLSQYUIVWK4550-82-10 17:27:00 Test Item Value Reference Range Interpretation Comments Lymphocytes # (test code = Lymphocytes 1.1 1.0-5.5 #) [facility] TemplePhuymtwGXGUYEDGRP4255-75-16 17:27:00 Test Item Value Reference Range Interpretation Comments Segs (test code = Segs) 74.8 45.0-75.0 [facility] TempleXvnkghcXLEQUIMSZC0754-52-14 17:27:00 Test Item Value Reference Range Interpretation Comments Lymphocytes (test code = Lymphocytes) 11.4 20.0-40.0 [facility] TempleKoisubvVFJCYJATYY8969-54-30 17:27:00 Test Item Value Reference Range Interpretation Comments Eosinophils (test code = 1.4 See_Comment [A utomated message] The Eosinophils) system which ge nerated this result tra nsmitted reference range : <=4.0. The reference r mirela was not used to int erpret this result as normal/abnormal . [facility] TempleRxltjcxCFTGIWPXGG2426-75-92 17:27:00 Test Item Value Reference Range Interpretation Comments Monocytes (test code = Monocytes) 11.4 2.0-12.[address] [facility] [place], TXUjragehKKMRJXONSDHY5491-67-86 17:27:00 Test Item Value Reference Range Interpretation Comments AGAP (test code = AGAP) 14.7 10.0-20.0 [facility]2016-10-08 00:32:00 Test Item Value Reference Range Interpretation Comments Calcium Lvl (test code = Calcium Lvl) 8.1 8.5-10.5 [facility]2016-10-08 00:32:00 Test Item Value Reference Range Interpretation Comments CO2 (test code = CO2) 23 24-32 [facility]2016-10-08 00:32:00 Test Item Value Reference Range Interpretation Comments Chloride Lvl (test code = Chloride Lvl) 110 95-109 [facility]2016-10-08 00:32:00 Test Item Value Reference Range Interpretation Comments Sodium Lvl (test code = Sodium Lvl) 141 135-145 [facility]2016-10-08 00:32:00 Test Item Value Reference Range Interpretation Comments BUN (test code = BUN) 11 7-22 [facility]2016-10-08 00:32:00 Test Item Value Reference Range Interpretation Comments Potassium Lvl (test code = Potassium 3.8 3.5-5.1 Lvl) [facility] [place]2016-10-08 00:32:00 Test Item Value Reference Range Interpretation Comments Glucose Lvl (test code = Glucose Lvl) 146 70-99 [facility] [place]2016-10-08 00:32:00 Test Item Value Reference Range Interpretation Comments eGFR (test code = eGFR) 69 [facility] [place]2016-10-08 00:32:00 Test Item Value Reference Range Interpretation Comments Creatinine Lvl (test code = Creatinine 1.00 0.50-1.40 Lvl) [facility] [place]2016-10-08 00:32:00 Test Item Value Reference Range Interpretation Comments AGAP (test code = AGAP) 11.8 10.0-20.0 [facility] [place]2016-10-08 00:32:00 Test Item Value Reference Range Interpretation Comments Phosphorus (test code = Phosphorus) 2.7 2.5-4.5 [facility] [place]2016-10-08 00:32:00 Test Item Value Reference Range Interpretation Comments Magnesium Lvl (test code = Magnesium 1.9 1.8-2.4 Lvl) [facility] [id number] 00:32:00 Test Item Value Reference Range Interpretation Comments Basophils # (test code 0.1 See_Comment [Aut omated message] The = Basophils #) system which generated this result tra nsmitted reference range : <=0.2. The reference r mirela was not used to int erpret this result as normal/abnormal . [facility] [id number] 00:32:00 Test Item Value Reference Range Interpretation Comments Eosinophils # (test code 0.2 See_Comment [A utomated message] The = Eosinophils #) system whic h generated this result tra nsmitted reference range : <=0.5. The reference r mirela was not used to int erpret this result as normal/abnormal . [facility] [id number] 00:32:00 Test Item Value Reference Range Interpretation Comments Macrocyte (test code = 1+ *ABN*(07/22/16 Macrocyte) 7:32 PM) [facility] [id number] 00:32:00 Test Item Value Reference Range Interpretation Comments Eosinophils (test code = 2.0 See_Comment [A utomated message] The Eosinophils) system which ge nerated this result tra nsmitted reference range : <=4.0. The reference r mirela was not used to int erpret this result as normal/abnormal . [facility] [id number] 00:32:00 Test Item Value Reference Range Interpretation Comments Segs-Bands # (test code = Segs-Bands #) 7.7 1.5-8.1 [facility] [id number] 00:32:00 Test Item Value Reference Range Interpretation Comments Monocytes (test code = Monocytes) 8.9 2.0-12.0 [facility] [id number] 00:32:00 Test Item Value Reference Range Interpretation Comments Basophils (test code = 0.9 See_Comment [Aut omated message] The Basophils) system which ge nerated this result tra nsmitted reference range : <=1.0. The reference r mirela was not used to int erpret this result as normal/abnormal . [facility] [id number] 00:32:00 Test Item Value Reference Range Interpretation Comments Lymphocytes (test code = Lymphocytes) 14.5 20.0-40.0 [facility] [id number] 00:32:00 Test Item Value Reference Range Interpretation Comments Lymphocytes # (test code = Lymphocytes 1.5 1.0-5.5 #) [facility] [id number] 00:32:00 Test Item Value Reference Range Interpretation Comments Monocytes # (test code 0.9 See_Comment [Aut omated message] The = Monocytes #) system which generated this result tra nsmitted reference range : <=0.8. The reference r mirela was not used to int erpret this result as normal/abnormal . [facility] [id number] 00:32:00 Test Item Value Reference Range Interpretation Comments Segs (test code = Segs) 73.7 45.0-75.0 [facility] [id number] 00:32:00 Test Item Value Reference Range Interpretation Comments WBC (test code = WBC) 10.5 3.7-10.4 [facility] [id number] 00:32:00 Test Item Value Reference Range Interpretation Comments RBC (test code = RBC) 4.03 4.70-6.10 [facility] [id number] 00:32:00 Test Item Value Reference Range Interpretation Comments Hgb (test code = Hgb) 14.4 14.0-18.0 [facility] [id number] 00:32:00 Test Item Value Reference Range Interpretation Comments Hct (test code = Hct) 42.5 42.0-54.0 [facility] [id number] 00:32:00 Test Item Value Reference Range Interpretation Comments MCV (test code = MCV) 105.6 80.0-94.0 [facility] [id number] 00:32:00 Test Item Value Reference Range Interpretation Comments Platelet (test code = Platelet) 186 133-450 [facility] [id number] 00:32:00 Test Item Value Reference Range Interpretation Comments MCH (test code = MCH) 35.9 pg 27.0-31.0 [facility] [id number] 00:32:00 Test Item Value Reference Range Interpretation Comments RDW (test code = RDW) 12.4 11.5-14.5 [facility] [id number] 00:32:00 Test Item Value Reference Range Interpretation Comments MPV (test code = MPV) 7.6 7.4-10.4 [facility] [id number] 00:32:00 Test Item Value Reference Range Interpretation Comments MCHC (test code = MCHC) 34.0 32.0-36.0 [facility] [place]2016-10-08 00:32:00 Test Item Value Reference Range Interpretation Comments Calcium Lvl (test code = Calcium Lvl) 8.1 8.5-10.5 [facility] [place]2016-10-08 00:32:00 Test Item Value Reference Range Interpretation Comments CO2 (test code = CO2) 23 24-32 [facility] [place]2016-10-08 00:32:00 Test Item Value Reference Range Interpretation Comments Chloride Lvl (test code = Chloride Lvl) 110 95-109 [facility] [place]2016-10-08 00:32:00 Test Item Value Reference Range Interpretation Comments Sodium Lvl (test code = Sodium Lvl) 141 135-145 [facility] [place]2016-10-08 00:32:00 Test Item Value Reference Range Interpretation Comments BUN (test code = BUN) 11 7-22 [facility] [place]2016-10-08 00:32:00 Test Item Value Reference Range Interpretation Comments Potassium Lvl (test code = Potassium 3.8 3.5-5.1 Lvl) [facility] [place]2016-10-08 00:32:00 Test Item Value Reference Range Interpretation Comments Glucose Lvl (test code = Glucose Lvl) 146 70-99 [facility] [place]2016-10-08 00:32:00 Test Item Value Reference Range Interpretation Comments eGFR (test code = eGFR) 69 [facility] [place]2016-10-08 00:32:00 Test Item Value Reference Range Interpretation Comments Creatinine Lvl (test code = Creatinine 1.00 0.50-1.40 Lvl) [facility] [place]2016-10-08 00:32:00 Test Item Value Reference Range Interpretation Comments AGAP (test code = AGAP) 11.8 10.0-20.0 [facility] [place]2016-10-08 00:32:00 Test Item Value Reference Range Interpretation Comments Phosphorus (test code = Phosphorus) 2.7 2.5-4.5 [facility] [place]2016-10-08 00:32:00 Test Item Value Reference Range Interpretation Comments Magnesium Lvl (test code = Magnesium 1.9 1.8-2.4 Lvl) [facility] [id number] 00:32:00 Test Item Value Reference Range Interpretation Comments Basophils # (test code 0.1 See_Comment [Aut omated message] The = Basophils #) system which generated this result tra nsmitted reference range : <=0.2. The reference r mirela was not used to int erpret this result as normal/abnormal . [facility] [id number] 00:32:00 Test Item Value Reference Range Interpretation Comments Eosinophils # (test code 0.2 See_Comment [A utomated message] The = Eosinophils #) system whic h generated this result tra nsmitted reference range : <=0.5. The reference r mirela was not used to int erpret this result as normal/abnormal . [facility] [id number] 00:32:00 Test Item Value Reference Range Interpretation Comments Macrocyte (test code = 1+ *ABN*(07/22/16 Macrocyte) 7:32 PM) [facility] [id number] 00:32:00 Test Item Value Reference Range Interpretation Comments Eosinophils (test code = 2.0 See_Comment [A utomated message] The Eosinophils) system which ge nerated this result tra nsmitted reference range : <=4.0. The reference r mirela was not used to int erpret this result as normal/abnormal . [facility] [id number] 00:32:00 Test Item Value Reference Range Interpretation Comments Segs-Bands # (test code = Segs-Bands #) 7.7 1.5-8.1 [facility] [id number] 00:32:00 Test Item Value Reference Range Interpretation Comments Monocytes (test code = Monocytes) 8.9 2.0-12.0 [facility] [id number] 00:32:00 Test Item Value Reference Range Interpretation Comments Basophils (test code = 0.9 See_Comment [Aut omated message] The Basophils) system which ge nerated this result tra nsmitted reference range : <=1.0. The reference r mirela was not used to int erpret this result as normal/abnormal . [facility] [id number] 00:32:00 Test Item Value Reference Range Interpretation Comments Lymphocytes (test code = Lymphocytes) 14.5 20.0-40.0 [facility] [id number] 00:32:00 Test Item Value Reference Range Interpretation Comments Lymphocytes # (test code = Lymphocytes 1.5 1.0-5.5 #) [facility] [id number] 00:32:00 Test Item Value Reference Range Interpretation Comments Monocytes # (test code 0.9 See_Comment [Aut omated message] The = Monocytes #) system which generated this result tra nsmitted reference range : <=0.8. The reference r mirela was not used to int erpret this result as normal/abnormal . [facility] [id number] 00:32:00 Test Item Value Reference Range Interpretation Comments Segs (test code = Segs) 73.7 45.0-75.0 [facility] [id number] 00:32:00 Test Item Value Reference Range Interpretation Comments WBC (test code = WBC) 10.5 3.7-10.4 [facility] [id number] 00:32:00 Test Item Value Reference Range Interpretation Comments RBC (test code = RBC) 4.03 4.70-6.10 [facility] [id number] 00:32:00 Test Item Value Reference Range Interpretation Comments Hgb (test code = Hgb) 14.4 14.0-18.0 [facility] [id number] 00:32:00 Test Item Value Reference Range Interpretation Comments Hct (test code = Hct) 42.5 42.0-54.0 [facility] [id number] 00:32:00 Test Item Value Reference Range Interpretation Comments MCV (test code = MCV) 105.6 80.0-94.0 [facility] [id number] 00:32:00 Test Item Value Reference Range Interpretation Comments Platelet (test code = Platelet) 186 133-450 [facility] [id number] 00:32:00 Test Item Value Reference Range Interpretation Comments MCH (test code = MCH) 35.9 pg 27.0-31.0 [facility] [id number] 00:32:00 Test Item Value Reference Range Interpretation Comments RDW (test code = RDW) 12.4 11.5-14.5 [facility] [id number] 00:32:00 Test Item Value Reference Range Interpretation Comments MPV (test code = MPV) 7.6 7.4-10.4 [facility] [id number] 00:32:00 Test Item Value Reference Range Interpretation Comments MCHC (test code = MCHC) 34.0 32.0-36.0 [facility]
--- NOTE | 2022-09-15 17:26 | RAD REPORT ---
EXAM DESCRIPTION: CT - CTHCSPWOC - 09/15/2022 4:58 pm CLINICAL HISTORY: Trauma, head and neck injury. Fall injury, neck pain COMPARISON: Head C Spine Mpr Wo Con dated 07/22/2016; Thoracic Spine W/o Cont dated 07/22/2016; CT-SPI [id number] dated 12/20/2011 TECHNIQUE: Axial 5 mm thick images of the head were obtained. Axial 2 mm thick images of the cervical spine were obtained with sagittal and coronal reconstruction images generated and reviewed. All CT scans are performed using dose optimization technique as appropriate and may include automated exposure control or mA/KV adjustment according to patient size. FINDINGS: CT HEAD WITHOUT CONTRAST: No acute hemorrhage, hydrocephalus or extra-axial collection is identified.Moderate brain atrophy.No areas of brain edema or midline shift. The paranasal sinuses and mastoids are clear.The calvarium is intact. CT CERVICAL SPINE WITHOUT CONTRAST: Fractures of the anterior inferior aspect of the C2 and C3 vertebral bodies present.Moderate preverte bral soft tissue swelling is evident. IMPRESSION: No acute intracranial finding. Acute fractures of the anterior inferior aspect of C2 and C3 vertebral bodies. Moderate prevertebral soft tissue swelling. The findings were discussed with Wyatt Quesada in the ER on 09/15/2022 at 5:22 p.m. by telephone.
--- NOTE | 2022-09-15 17:28 | RAD REPORT ---
EXAM DESCRIPTION: RAD - Chest Single View - 09/15/2022 5:22 pm CLINICAL HISTORY: SOB Chest pain. COMPARISON: Chest Single View dated 06/05/2022; Abdomen 1 View (KUB) dated 03/08/2018; Chest Pa And La t (2 Views) dated 12/27/2016; Chest Single View dated 09/21/2016 FINDINGS: Portable technique limits examination quality. Moderate opacity in the right lung base is seen which is probably related to infiltrate/pneumonia. Th e heart is mildly enlarged in size. Tortuous thoracic aorta. IMPRESSION: Moderate right lung base pneumonia/infiltrate.
[2022-09-15] MEDS ORDERED: MORPHINE 4 MG/ML SYR ONE ×2 (17:31→18:26)
[2022-09-15] MEDS ORDERED: ONDANSETRON 4 MG/2 ML VIAL ONE (17:31)
--- NOTE | 2022-09-15 17:59 | EDPHYS ---
Physician Documentation [facility] Name: Salaazr Duong Age: 87 yrs Sex: Male : 1935 Arrival Date: 09/15/2022 Time: 16:29 Bed 8 Private MD: ED Physician Roe Cedeno HPI: 09/15 16:42 This 87 yrs old Male presents to ER via EMS with complaints of Fall and Shortness of pm1 breath. 16:42 The patient has shortness of breath at rest, and the patient has a history of COPD. pm1 Onset: The symptoms/episode began/occurred today. Duration: The symptoms are continuous. The patient's shortness of breath is aggravated by exertion, is alleviated by rest. Associated signs and symptoms: Pertinent positives: non-productive cough, Pertinent negatives: chest pain, fever. Severity of symptoms: in the emergency department the symptoms are unchanged. The patient has not experienced similar symptoms in the past. The patient has not recently seen a physician. Patient was walking with his walker, with home health nurse at his side. Patient fell backwards and is presenting to the ER with complaints of neck pain. Patient denies head injury, headache, LOC. Patient with history of COPD and has oxygen at home that he does not use because he feels that he does not need it. On EMS arrival, patient was found to have O2 sats 87 - 88%. Given breathing treatment in route. Patient had covid about 2-3 weeks ago per daughter that he recovered from. Historical: - Allergies: 16:45 IV contrast (Hives); bp 16:45 tramadol; bp - PMHx: 16:45 BPH; COPD; Hypertension; Hypothyroidism; Osteoporosis; Prostate Cancer; bp 21:11 covid x 2 weeks ago; kl - Immunization history:: Adult Immunizations unknown. - Social history:: Smoking status: Patient denies any tobacco usage or history of. ROS: 16:45 Constitutional: Negative for fever, chills, and weight loss, Cardiovascular: Negative pm1 for chest pain, palpitations, and edema. 16:45 Abdomen/GI: Negative for abdominal pain, nausea, vomiting, diarrhea, and constipation, Back: Negative for injury and pain. 16:45 MS/Extremity: Negative for injury and deformity. 16:45 Neck: Positive for pain at rest, of the back of neck. 16:45 Respiratory: Positive for shortness of breath. 16:45 Skin: Positive for skin tear right arm. 16:45 Neuro: Negative for dizziness, headache, loss of consciousness, numbness, tingling. 16:45 All other systems are negative. Exam: 16:45 Head/Face: Normocephalic, atraumatic. pm1 16:45 Constitutional: The patient appears in no acute distress, alert, awake, non-diaphoretic, non-toxic, well developed, well hydrated, well groomed, well nourished, uncomfortable. 16:45 Eyes: Exam is negative for acute changes, Periorbital structures: no acute changes, Pupils: no acute changes, Extraocular movements: no acute changes, Conjunctiva: no acute changes, no injection. 16:45 ENT: Exam is negative for acute changes, External ear(s): no acute changes, Ear canal(s): no acute changes, TM's: no acute changes, Nose: no acute changes, Mouth: no acute changes, Lips: normal, moist, Oral mucosa: normal, pink and intact, moist. 16:45 Neck: C-spine: vertebral tenderness, that is mild, appreciated at back of neck. 16:45 Cardiovascular: Exam negative for acute changes, Rate: normal, Rhythm: regular, Pulses: no pulse deficits are appreciated, Heart sounds: normal, normal S1and S2. 16:45 Respiratory: the patient does not display signs of respiratory distress, Respirations: no acute changes, Breath sounds: decreased breath sounds, are heard in the right posterior lower lobe. 16:45 Abdomen/GI: Exam negative for acute changes, Inspection: abdomen appears normal, Palpation: abdomen is soft and non-tender, in all quadrants. 16:45 Back: pain, is absent, scoliosis that is moderate, vertebral tenderness, is not appreciated. 16:45 Skin: Appearance: normal except for affected area, injury, moderate skin tear present dorsum of right hand and large skin tear present to proximal aspect of right forearm. 16:45 Neuro: Exam negative for acute changes, Orientation: is normal, Mentation: is normal, Motor: is normal, moves all fours, Sensation: no obvious gross deficits. Vital Signs: 16:40 BP 179 / 90; Pulse 88; Resp 28; Temp 97.8; Pulse Ox 98% on 10% Nebulizer Mask; bp 17:42 BP 158 / 78; Pulse 71; Resp 20; Pulse Ox 97% on 3 lpm NC; bp 19:57 BP 145 / 57; Pulse Ox 92% on R/A; kl 21:59 BP 117 / 70; Pulse 98; Resp 26; Pulse Ox 99% on 3 lpm NC; kl MDM: 16:30 Patient medically screened. pm1 17:43 Data reviewed: vital signs. Data interpreted: Pulse oximetry: on room air is 97 %. pm1 Interpretation: normal. 17:57 Counseling: I had a detailed discussion with the patient and/or guardian regarding: the pm1 historical points, exam findings, and any diagnostic results supporting the discharge/admit diagnosis, radiology results, the need to transfer to another facility, for higher level of care, [facility] does not immediately have the required specialist. 20:52 Physician consultation: Neurosurgery was contacted at 20:53, regarding regarding pm1 transfer, patient's condition, and will see patient. 09/15 16:42 Order name: Basic Metabolic Panel; Complete Time: 21:36 pm1 09/15 16:42 Order name: CBC with Diff; Complete Time: 21:22 pm1 09/15 16:42 Order name: LFT's; Complete Time: 21:36 pm1 09/15 16:42 Order name: Magnesium; Complete Time: 21:36 pm1 09/15 16:42 Order name: NT PRO-BNP; Complete Time: 21:36 pm1 09/15 16:36 Order name: CT Head C Spine; Complete Time: 17:29 pm1 09/15 16:42 Order name: Troponin HS; Complete Time: 21:36 pm1 09/15 16:42 Order name: XRAY Chest (1 view); Complete Time: 17:29 pm1 09/15 16:42 Order name: COVID-19/FLU A+B; Complete Time: 21:22 pm1 09/15 17:37 Order name: Blood Culture Adult (2) pm1 09/15 21:21 Order name: CBC Smear Scan; Complete Time: 21:22 EDMS 09/15 16:42 Order name: EKG; Complete Time: 16:43 pm1 09/15 16:42 Order name: Cardiac monitoring; Complete Time: 17:17 pm1 09/15 16:42 Order name: EKG - Nurse/Tech; Complete Time: 19:04 pm1 09/15 16:42 Order name: IV Saline Lock; Complete Time: 17:40 pm1 09/15 16:42 Order name: O2 Per Protocol; Complete Time: 17:17 pm1 09/15 16:42 Order name: O2 Sat Monitoring; Complete Time: 17:17 pm1 09/15 17:21 Order name: C-Collar; Complete Time: 17:40 pm1 EC:30 Rate is 78 beats/min. Rhythm is regular, Sinus Rhythm with premature supraventicular pm1 complexes. QRS [place] is Normal. No Q waves. T waves are Normal. No ST changes noted. Clinical impression: sinus rhythm with premature supraventicular complexes, pulmonary disease patteren, right bundle branch block, left anterior fascicular block, septal infarct, age undetermined, abnormal ECG. Administered Medications: 17:45 Drug: morphine 4 mg Route: IVP; Infused Over: 4 mins; Site: right forearm; bp 17:45 Drug: Zofran (Ondansetron) 4 mg Route: IVP; Site: right forearm; bp 19:35 Drug: Dilaudid (HYDROmorphone) 1 mg Route: IVP; Site: right forearm; kl 20:00 Drug: Rocephin (cefTRIAXone) 1 grams Route: IV; Rate: calculated rate; Site: left kl forearm; 21:00 Drug: AZITHromycin 500 mg Route: IVPB; Infused Over: 1 hrs; Site: right forearm; kl 21:59 Follow up: IV Status: Infusion continued upon transfer kl Disposition Summary: 09/15/22 17:59 Transfer Ordered Transfer Location: [facility] pm1 Reason: Higher level of care pm1 Condition: Stable pm1 Problem: new pm1 Symptoms: have improved pm1 Accepting Physician: (09/15/22 22:01) [place] Diagnosis - Anterior Inferior fracture of C2 and C3 pm1 - Fall on same level, unspecified pm1 - Pneumonia, unspecified organism pm1 Forms: - Medication Reconciliation Form pm1 - SBAR form pm1 Addendum: 09/18/2022 08:03 Co-signature as Attending Physician, Roe Cedeno MD I agree with the assessment and c engel plan of care. Signatures: Dispatcher [employer] Lissy Villegas RN RN kl Anderson, Corey, MD MD cha Marinas, Patrick, CHEMISTRY RESEARCH ASSISTANT CHEMISTRY RESEARCH ASSISTANT pm1 Dejan Early, RN RN bp Corrections: (The following items were deleted from the chart) 09/15 22:01 17:59 MD breaux1
--- NOTE | 2022-09-15 17:59 | ER ---
Nurse's Notes [facility] Name: Salazar Duong Age: 87 yrs Sex: Male : 1935 Arrival Date: 09/15/2022 Time: 16:29 Bed 8 Private MD: Diagnosis: Anterior Inferior fracture of C2 and C3;Fall on same level, unspecified;Pneumonia, unspecified organism Presentation: 09/15 16:40 Chief complaint: EMS states: ORIGINALLY CALLED OUT FOR LIFT ASSIST, DISCOVERED PT bp TACHYPNEIC AND DIMINISHED IN BLL. Coronavirus screen: At this time, the client does not indicate any symptoms associated with coronavirus-19. Ebola Screen: No symptoms or risks identified at this time. Initial Sepsis Screen: Does the patient meet any 2 criteria? No. Patient's initial sepsis screen is negative. Does the patient have a suspected source of infection? No. Patient's initial sepsis screen is negative. Risk Assessment: Do you want to hurt yourself or someone else? Patient reports no desire to harm self or others. Onset of symptoms is unknown. 16:40 Acuity: ERMELINDA 2 bp 16:40 Method Of Arrival: EMS: [facility] bp Triage Assessment: 16:40 General: Appears distressed, uncomfortable, Behavior is cooperative, appropriate for bp age, anxious. Pain: Complains of pain in back of neck. EENT: No deficits noted. Neuro: Level of Consciousness is awake, alert, obeys commands, Oriented to Appropriate for age Moves all extremities. Speech is normal. Cardiovascular: Rhythm is sinus rhythm. Respiratory: Reports shortness of breath Breath sounds are diminished bilaterally. Onset: The symptoms/episode began/occurred at an unknown time. the patient has moderate shortness of breath. GI: No signs and/or symptoms were reported involving the gastrointestinal system. : No signs and/or symptoms were reported regarding the genitourinary system. Derm: No deficits noted. Musculoskeletal: No deficits noted. Historical: - Allergies: 16:45 IV contrast (Hives); bp 16:45 tramadol; bp - PMHx: 16:45 BPH; COPD; Hypertension; Hypothyroidism; Osteoporosis; Prostate Cancer; bp 21:11 covid x 2 weeks ago; kl - Immunization history:: Adult Immunizations unknown. - Social history:: Smoking status: Patient denies any tobacco usage or history of. Screenin:40 Abuse screen: Denies threats or abuse. Denies injuries from another. Nutritional bp screening: No deficits noted. Tuberculosis screening: No symptoms or risk factors identified. Fall Risk Fall in past 12 months (25 points). No secondary diagnosis (0 pts). IV access (20 points). Ambulatory Aid- Crutches/Cane/Walker (15 pts). Gait- Weak (10 pts.). Mental Status- Oriented to own ability (0 pts). Total Marcelo Fall Scale indicates High Risk Score (45 or more points). Fall prevention measures have been instituted. Side Rails Up X 2 Placed Close to Nursing Station Frequent Obs/Assessments Occuring Family Present and informed to notify staff if the need to leave the bedside As available patient and family educated on Fall Prevention Program and Strategies. Assessment: 16:40 General: SEE TRIAGE NOTE. bp 17:43 Reassessment: C2/C3 FX NOTED ON SCAN, PER PROVIDER. C-COLLAR PLACED. PT REMAINS bp NEURO-INTACT, MOVES ALL EXTREMITIES. 19:55 General: Appears distressed, uncomfortable, slender, Behavior is anxious. Pain: Complains of pain in right posterior lower lobe and back of neck left upper arm. Neuro: Level of Consciousness is awake, alert, obeys commands, Oriented to person, place, time, situation, Speech is normal, Facial symmetry appears normal. Cardiovascular: Rhythm is regular. Respiratory: Airway is patent Respiratory effort is shallow, Breath sounds are diminished bilaterally. GI: No deficits noted. No signs and/or symptoms were reported involving the gastrointestinal system. : No deficits noted. No signs and/or symptoms were reported regarding the genitourinary system. Derm: skin tears to lright arm bruising to bilateral arms. 19:57 Musculoskeletal: c collar in place. Vital Signs: 16:40 BP 179 / 90; Pulse 88; Resp 28; Temp 97.8; Pulse Ox 98% on 10% Nebulizer Mask; bp 17:42 BP 158 / 78; Pulse 71; Resp 20; Pulse Ox 97% on 3 lpm NC; bp 19:57 BP 145 / 57; Pulse Ox 92% on R/A; kl 21:59 BP 117 / 70; Pulse 98; Resp 26; Pulse Ox 99% on 3 lpm NC; ED Course: 16:29 Patient arrived in ED. em1 16:30 Wyatt Quesada NP is PHCP. pm1 16:30 Roe Cedeno MD is Attending Physician. pm1 16:39 Silvestre Stahl, AMNA is Primary Nurse. jl7 16:40 Patient has correct armband on for positive identification. Bed in low position. Call bp light in reach. Side rails up X2. Adult w/ patient. 16:40 Maintain EMS IV. Dressing intact. Good blood return noted. Site clean \T\ dry. Gauge \T\ bp site: 20 G R FA. 16:44 Triage completed. bp 17:00 CT Head C Spine In Process Unspecified. EDMS 17:23 XRAY Chest (1 view) In Process Unspecified. EDMS 17:42 Arm band placed on. bp 18:17 Dejan Early, AMNA is Primary Nurse. bp 19:40 Inserted saline lock: 20 gauge in left forearm, using aseptic technique. Blood kl collected. 19:59 Lactate w/ 2H reflex if indic. Sent. kl 19:59 CBC with Diff Sent. kl 19:59 LFT's Sent. kl 19:59 Magnesium Sent. kl 19:59 Troponin HS Sent. kl 22:00 No provider procedures requiring assistance completed. Patient transferred, IV remains kl in place. Administered Medications: 17:45 Drug: morphine 4 mg Route: IVP; Infused Over: 4 mins; Site: right forearm; bp 17:45 Drug: Zofran (Ondansetron) 4 mg Route: IVP; Site: right forearm; bp 19:35 Drug: Dilaudid (HYDROmorphone) 1 mg Route: IVP; Site: right forearm; kl 20:00 Drug: Rocephin (cefTRIAXone) 1 grams Route: IV; Rate: calculated rate; Site: left kl forearm; 21:00 Drug: AZITHromycin 500 mg Route: IVPB; Infused Over: 1 hrs; Site: right forearm; kl 21:59 Follow up: IV Status: Infusion continued upon transfer Medication: 22:00 VIS not applicable for this client. Outcome: 17:59 ER care complete, transfer ordered by . pm1 22:00 Transferred by ground EMS to [facility]. kl 22:00 Condition: stable 22:00 Discharge instructions given to patient, family, Instructed on the need for transfer, Demonstrated understanding of instructions. 22:01 Patient left the ED. kl Signatures: Dispatcher [employer] Lissy Villegas RN Bishnu Eddy em1 Wyatt Quesada, GEOVANNI BOAT HAND pm1 Silvestre Stahl RN RN jl7 Dejan Early RN RN bp Corrections: (The following items were deleted from the chart) 17:42 16:40 BP 179 / ???; Pulse 90bpm; Resp 88bpm; Pulse Ox 98% 02 10% Nebulizer Mask; Temp bp 28F; bp
[2022-09-15] MEDS ORDERED: HYDROMORPHONE HCL 1 MG/ML INJ ONE (19:25)
[2022-09-15 20:07] LABS: Absolute Lymphocytes (CBC) 0.7 K/uL (0.7-4.9); Hematocrit 38.1 % (39.6-49.0); Lymphocytes % 3.5 % (15.3-44.8); MCV 100.3 fL (80-100); MPV 7.6 fL (7.6-11.3)
[2022-09-15 20:55] LABS: SARS-COV-2 RT PCR POSITIVE (NEGATIVE)
[2022-09-15] MEDS ORDERED: DERMABOND SKIN ADHESIVE TOP ONE ×2 (20:55→20:56)
[2022-09-15] MEDS ORDERED: Mastisol Adhesive Liq ONE (20:59)
[2022-09-15] MEDS ORDERED: NA CHLORIDE 0.9% 100 ML IV ONE (21:08)
[2022-09-15] MEDS ORDERED: AZITHROMYCIN 500 MG INJ IVPB ONE (21:08)
[2022-09-15 21:20] LABS: Blood Morphology Comment NOT SEEN (NOT SEEN); Platelet Estimate ADEQ; White Blood Cell Scan OK (OK)
[2022-09-15 21:24] LABS: Albumin 3.2 g/dL (3.4-5.0); Bilirubin Direct 0.1 mg/dL (0-0.2); Bilirubin Total 1.1 mg/dL (0.2-1.0); Protein, Total 7.2 g/dL (6.4-8.2); Troponin High Sensitivity 10.5 pg/mL (<58.9)
[2022-09-15 21:26] LABS: Magnesium 2.1 mg/dL (1.8-2.4)
[2022-09-15 21:27] LABS: Potassium 5.8 mmol/L (3.5-5.1)
[2022-09-15 22:25] VITALS: TEMP 97.8
[2022-09-15 22:28] VITALS: BP 117/70; O2SAT 99
--- NOTE | 2022-09-16 07:50 | EKG ---
Test Date: 2022-09-15 Test Time: 18:10:33 Power Distributor: BP MEASUREMENT RESULTS: Intervals: Rate: 78 OK: 176 QRSD: 120 QT: 386 QTc: 440 Hardin: P: 94 OK: 176 QRS: -52 T: 74 INTERPRETIVE STATEMENTS: Sinus rhythm with premature supraventricular complexes Pulmonary disease pattern Right bundle branch block Left anterior fascicular block Bifascicular block Septal infarct, age undetermined Abnormal ECG Compared to ECG 06/05/2022 11:09:02 Atrial premature complex(es) now present Right bundle-branch block now present Bifascicular block now present Sinus arrhythmia no longer present Left ventricular hypertrophy no longer present Myocardial infarct finding still present Electronically Signed On 09-16-22 07:48:52 [employer] by Michael Saravia
== END 2022-09-15 22:01 | disposition short-term general hospital (02) ==
LOC: ER 16:23
DX: S12.100A Unspecified displaced fracture of second cervical vertebra, initial encounter for closed fracture (principal); S12.200A Unspecified displaced fracture of third cervical vertebra, initial encounter for closed fracture; J18.9 Pneumonia, unspecified organism; W18.30XA Fall on same level, unspecified, initial encounter; J44.9 Chronic obstructive pulmonary disease, unspecified; Z20.822 Contact with and (suspected) exposure to COVID-19; Z88.5 Allergy status to narcotic agent; Z91.041 Radiographic dye allergy status
CPT/HCPCS: 93005; 87040; 85025; 80048; 36415; 83735; 80076; 84484; 83880; 0240U; 70450; 72125; 71045; 99285; J0456; J1170; J2405

== ENCOUNTER 2023-02-14 16:09 | Inpatient (IN) | payer OTHER ==
--- OUTSIDE RECORDS SUMMARY | 2023-02-14 16:26 | XMS REPORT | Continuity of Care Document ---
:1935 Author Organization [facility] t Address [address] [place] [address] Care Team Providers Name Role Phone Suzanne Gardiner MD Primary Care Physician JOHNATHAN CHAVARRIA Attending Clinician Unavailable Johnathan Chavarria Attending Clinician Katia Ramsey Attending Clinician EDE MCQUEEN Attending Clinician Unavailable Sherita Torres Attending Clinician Nurse, Adc Pob Immunization Attending Clinician Unavailable Kelby Freed DO Attending Clinician Jose Mcclellan Attending Clinician Julia Darnell Attending Clinician Jermaine Prince Attending Clinician ERASMO MATA Admitting Clinician Unavailable Erasmo Mata Admitting Clinician SHERITA TORRES Admitting Clinician Unavailable Sherita Torres Admitting Clinician Jermaine Prince Admitting Clinician Payers Payer Name Policy Type Policy Number Effective Date Expiration Date S pedro AETNA MEDICARE O [id number] 2021 00:00:00 [employer]ET[employer] MANAGED [id number] 2020 MEDICARE PPO-ENOC 00:00:00 Problems Condition Condition Condition Status Onset Resolution Last Treating Co mments Source Name Details Category Date Date Treatment Clinician Date INTERIOR INTERIOR Diagnosis Active 2021-102022-10-24 Memoria INFERIOR INFERIOR 2 08:15:00 l C2/C3 FX C2/C3 FX 00:00: Juan Jose ayoub Active 00 09/15/2022 [facility] L HUMERUS L HUMERUS Diagnosis Active 2022-06-18 Memoria FRACTURE FRACTURE 06-18 06:40:00 l Active 00:00: Jim 06/18/2022 00 [facility] LT HUMERUS LT Diagnosis Active 2022-07-08 Memoria FX,INFERIO HUMERUS 06-18 21:46:00 l R PUBIC FX,INFERIO 00:00: Rashmi nn RAMUS R PUBIC 00 FX,SA RAMUS FX,SA Active 06/18/2022 [facility] UNK UNK Diagnosis Active 2017-11-17 Mem oria Active 11-13 08:30:00 l 11/13/2017 00:00: Juan Jose ayoub 00 [place] M54.5 - M54.5 - Diagnosis Active 2015-102017-05-17 Memoria LOW BACK LOW BACK 0- 09:29:00 l PAIN PAIN 00:01: Jim Active 00 08/05/2016 [facility] C6 C6 Diagnosis Active 2015-102016-07-25 Mem oria FRACTURE, FRACTURE, 0-07 09:31:00 l T5, FX, T5, FX, 00:00: Jim LIGAMENT LIGAMENT 00 EDEMA, LAC EDEMA, LAC Active 07/22/2016 [facility] Essential Essential Disease Active Uni vers hypertensi [...] different from the original. 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 3-05 ity of 00:00: [place] 00 Medical Branch Essential Essential Problem 2018-02-23 Memoria (primary) (primary) 12:59:37 l hypertensi hypertensi He rmann on on 02/23/2018 [facility] Encounter Encounter Problem 2018-02-23 Memoria for for 12:59:37 l immunizati immunizati He rmann on on 02/23/2018 [facility] ILLNESS, ILLNESS, Diagnosis Active 2016-07-25 Memoria UNSPECIFIE UNSPECIFIE 09:31:00 l D D Active [facility] UNSP DISP UNSP DISP Diagnosis Active 2022-07-08 Memoria FX OF FX OF 21:46:00 l SURGICAL SURGICAL Juan Jose n NECK OF NECK OF LEFT HU LEFT HU Active [facility] UNSP UNSP Diagnosis Active 2022-07-08 Mem oria FRACTURE FRACTURE 21:46:00 l OF SACRUM, OF SACRUM, He rmann INIT INIT ENCNTR FOR ENCNTR FOR Active [facility] OTH OTH Diagnosis Active 2022-07-08 Mem oria FRACTURE FRACTURE 21:46:00 l OF UNSP OF UNSP Jim PUBIS, PUBIS, INIT INIT ENCNTR ENCNTR Active [facility] Benign Benign Problem Resolve 2022-09-19 Mem oria prostatic prostatic d 15:07:15 l hyperplasi hyperplasi He rmann a a (disorder) (disorder) Resolved Problem 09/19/2022 [facility], [facility] [place] [facility] Pneumonia Problem Resolve 2022-09-19 M emoria (disorder) Pneumonia d 15:07:15 l (disorder) Juan Jose n Resolved Problem 09/19/2022 [facility], [facility] Benign Benign Problem Active 2022-09-28 Chilango jeannette prostatic prostatic 01:16:37 l hypertroph hypertroph He rmann with with outflow outflow obstructio obstructio n n (disorder) (disorder) Active Problem 09/28/2022 [facility] 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 Jim disease disease (disorder) (disorder) Active Problem 09/28/2022 [facility] Compressio Compressi Problem Active 2022-09-28 Memoria n fracture on 01:16:37 l of second fracture Rashmi nn lumbar of second vertebra lumbar (disorder) vertebra (disorder) Active Problem 09/28/2022 [facility] Dysphagia Dysphagia Problem Active 2022-09-28 Memoria (disorder) (disorder) 01:16:37 l Active [place] Problem 09/28/2022 [facility] Dyspnea on Dyspnea Problem Active 2022-09-28 Memoria exertion on 01:16:37 l (finding) exertion Rashmi nn (finding) Active Problem 09/28/2022 [facility] Fracture Fracture Problem Active 2022-09-28 Memoria of of 01:16:37 l cervical cervical Juan Jose n spine spine (disorder) (disorder) Active Problem 09/28/2022 [facility] [place] [facility] Hyperlipid Hyperlipi Problem Active 2022-09-28 Memoria emia demia 01:16:37 l (disorder) (disorder) He rmann Active Problem 09/28/2022 [facility] Hypertensi Hypertens Problem Active 2022-09-28 Memoria ve max 01:16:37 l disorder, disorder, Herm ondina systemic systemic arterial arterial (disorder) (disorder) Active Problem 09/28/2022 [facility] [place] [facility] Hypothyroi Hypothyro Problem Active 2022-09-28 Memoria dism idism 01:16:37 l (disorder) (disorder) He rmann Active Problem 09/28/2022 [facility] Hypoxia Hypoxia Problem Active 2022-09-28 Me moria (disorder) (disorder) 01:16:37 l Active Jim Problem 09/28/2022 [facility] 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 01:16:37 l prostate prostate Juan Jose n (disorder) (disorder) Active Problem 09/28/2022 [facility], [facility] [place] [facility] Wedge Wedge Problem Active 2022-09-28 Chilango jeannette fracture fracture 01:16:37 l of of Jim thoracic thoracic vertebra vertebra (disorder) (disorder) Active Problem 09/28/2022 [facility] [place] [facility] 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 of y of 01:16:37 l macronutri macronutri He ann ents ents (disorder) (disorder) Active Problem 09/28/2022 [facility] History of Past Illness Condition Condition Condition Status Onset Resolution Last Treating Co mments Source Name Details Category Date Date Treatment Clinician Date Other Other Problem 2018-02-23 2018-02-23 M emoria osteoporos osteoporos 2-21 12:59:37 12:59:37 l is with is with 04:19: Jim current current 52 pathologic pathologic al al fracture, fracture, vertebra(e vertebra(e ), initial ), initial encounter encounter for for fracture fracture 12/06/2017 02/23/2018 [facility] Allergies, Adverse Reactions, Alerts Allergy Allergy Status Severity Reaction(s) Onset Inactive Treating Comm ents Source Name Type Date Date Clinician IODINE DRUG Active Hives Univers INGREDI 3-05 ity of 00:00: [place] 00 Medical Branch Iodine Propensi Active Hives Univers ty to 3-05 ity of adverse 00:00: [place] reaction Medical s Branch contrast contrast Active Memori a media media l (iodine- (iodine- Juan Jose n based) based) traMADol traMADol Active Memori a l Jim Social History Social Habit Start Date Stop Date Quantity Comments Source Social History 2016-07-22 2016-07-22 [facility] Selina colon 22:52:42 22:52:42 Alcohol intake 2014-12-23 2014-12-23 Current drinker Unive rsity of 00:00:00 00:00:00 of alcohol [facility] (finding) Branch History of 2008-12-23 Smoker University of tobacco use 00:00:00 [facility] [birth year] [facility] Smoking Status Start Date Stop Date Source Tobacco smoking status 2022-09-16 06:28:04 2022-09-16 06:28:04 M adityaal Jim Medications Ordered Filled Start Stop Current Ordering Indication Dosage Frequency Signature Comments Components Source Medication Medication Date Date Medication? Clinician (SIG) Name Name diclofenac 2021-10 Yes TOP, QID, Me moria sodium 1% 2-11 0 l topical 15:56: Refill(s) Rashmi nn cream 00 lidocaine 2021-10 Yes 3 patch, Chilango jeannette 4% topical 2-11 TOP, l film 15:56: Daily, 0 [place] 00 Refill(s) methocarbam 2021-10 Yes 500 mg = 1 Memoria ol 500 mg 2-11 tab, PEG, l oral tablet 15:56: TID, PRN He rmann 00 Spasm, X 7 day, # 20 tab, 0 Refill(s), Pharmacy: [facility], 167.64, cm, 09/19/22 13:33:00 [employer], Height, 62.1, kg, 09/19/22 13:33:00 [employer], Weight oxyCODONE 5 2021-10 Yes 5 mg = 1 Me moria mg oral 2-11 tab, PO, l tablet, 15:56: Q4H, PRN Juan Jose n immediate 00 Pain Score release 7-10, acute left shoulder fracture, acute cervical spine fracture, X 7 day, # 20 tab, 0 Refill(s), Pharmacy: [facility] [place], 167.64, cm, 09/19/22 13:33:00 [employer], Height, 62.1, kg, 09/19/22 13:33:00 [employer], W... Flomax 0.4 2021-10 Yes 0.4 mg = 1 M emoria mg oral 2-11 cap, PO, l capsule 15:55: Bedtime, Juan Jose n 00 give per PEG, # 30 cap, 0 Refill(s), Pharmacy: [facility], 167.64, cm, 09/19/22 13:33:00 [employer], Height, 62.1, kg, 09/19/22 13:33:00 [employer], Weight acetaminoph 2021-10 Yes 1,000 mg = Memoria en 500 mg 2-11 2 tab, l oral 15:55: PEG, Jim tablet. 00 Q8H-06, PRN Pain Score 1-3, 0 Refill(s) finasteride 2021-10 Yes 5 mg = 1 Me moria 5 mg oral 2-11 tab, PEG, l tablet 15:54: Daily, # [place] 00 30 tab, 0 Refill(s), Pharmacy: [facility], 167.64, cm, 09/19/22 13:33:00 [employer], Height, 62.1, kg, 09/19/22 13:33:00 [employer], Weight levothyroxi 2021-10 Yes 100 Memori a ne 100 mcg 2-11 microgram l (0.1 mg) 15:54: = 1 tab, Rashmi nn oral tablet 00 PEG, Daily, # 30 tab, 0 Refill(s), Pharmacy: [facility], 167.64, cm, 09/19/22 13:33:00 [employer], Height, 62.1, kg, 09/19/22 13:33:00 [employer], Weight liothyronin 2021-10 Yes 5 Memori a e 5 mcg 2-11 microgram l oral tablet 15:54: = 1 tab, He rmann 00 PEG, Daily, # 30 tab, 0 Refill(s), Pharmacy: [facility], 167.64, cm, 09/19/22 13:33:00 [employer], Height, 62.1, kg, 09/19/22 13:33:00 [employer], Weight metoprolol 2021-10 Yes 25 mg = 1 Me moria tartrate 25 2-11 tab, PEG, l mg oral 15:54: Q12H, # 60 Herm ondina tablet 00 tab, 0 Refill(s), Pharmacy: [facility], 167.64, cm, 09/19/22 13:33:00 [employer], Height, 62.1, kg, 09/19/22 13:33:00 [employer], Weight aspirin 81 2021-10 Yes 81 mg = 1 Me moria mg tablet, 2-11 tab, PEG, l chewable 15:53: Daily, # Rashmi nn 00 30 tab, 0 Refill(s), Pharmacy: [facility] [place], 167.64, cm, 09/19/22 13:33:00 [employer], Height, 62.1, kg, 09/19/22 13:33:00 [employer], Weight bisacodyl 2021-10 No Notes: Memori a 2-04 (Same As: l 16:23: Dulcolax, Jim 00 Bisco-Lax) PlasmaLyte 2021-10 No Notes: Memor ia A PH-7.4 2-04 (Same as: l 1,000 mL 14:00: Isolyte S Herm ondina 00 PH7.4, Normosol-R PH 7.4, Plasma-Lyt e A ) remove 2021-10 Yes Notes: Memoria patch 2-04 Remove l 03:00: patch 12 [place] 00 hours after applicatio n each day. acetaminoph 2021-10 No Notes: Max Memoria en 2-03 acetaminop l 20:00: hen 4000 [place] 00 mg/day (4 gm/day). (Same as: Tylenol Extra Strength) Dilaudid 2021-10 Yes Notes: Memoria 2-03 Same as: l 16:31: Dilaudid Jim 00 acetaminoph 2021-10 Yes Notes: Chilango jeannette en 2-03 Infuse l 16:30: over 15 Jim 00 minutes Do not exceed 4gm/day of acetaminop hen MEDICATION WASTE Product Size: 1000 mg Product Wasted: ___ mg Aspirin 2021-10 No Notes: Do Memor ia Enteric 2-03 not crush l Coated 15:00: or chew. Jim (Same As: Ecotrin) finasteride 2021-10 Yes Notes: Chilango jeannette 2-03 (Same as: l 15:00: Proscar) Jim 00 "Do Not Crush" Women of childbeari ng age should not touch or handle broken tablets Hazardous [employer] 3:Reproduc tive risk Hazardous Drug -- Refer to safe handling procedure PPE Matrix senna 2021-10 Yes Notes: Memoria 2-03 (Same as: l 15:00: Senokot) [place] polyethylen 2021-10 Yes Notes: Chilango jeannette e glycol 2-03 Dissolve l 3350 15:00: in 8 oz of Jim 00 water or juice. (Same as: Miralax) lidocaine 2021-10 Yes Notes: Memori a 4% topical 2-03 Patch is l film 13:57: applied to intact skin to cover painful area for up to 12 hours in a 24-hour period (12 hours on and 12 hours off). Please indicate the location of applicatio n site. Site 1: Remove old patch before applicatio n of new patch. (Same as Aspercreme Lidocaine Patch) naloxone 2021-10 Yes Notes: Memoria 2-03 Same as l 13:57: Narcan bisacodyl 2021-10 Yes Notes: Memori a 2-03 (Same As: l 13:57: Dulcolax, Bisco-Lax) ondansetron 2021-10 Yes Notes: Chilango jeannette 2-03 (Same as: l 13:57: Zofran) MEDICATION WASTE Product Size: 4 mg Product Wasted: ___ mg melatonin 2021-10 Yes Notes: Memori a 2-03 (Same as: l 13:57: Melatonin) Flonase 2021-10 Yes Notes: Memoria 0.05 mg/inh 2-03 (Same as: l nasal spray 13:57: Flonase) He rm Cepacol 2021-10 Yes Notes: Memoria Sore Throat 2-03 Cepacol l 15 mg-3.6 13:57: lozenges Herm ondina mg mucous 00 Dispense 1 membrane box = 16 lozenge lozenges (Same As: Cepacol Lozenges) Tums 2021-10 Yes Notes: Memoria 2-03 (Same As: l 13:57: Tums) Calcium Carbonate 500 mg = 200 mg elemental calcium Dose = mg calcium carbonate ( mg elemental calcium) simethicone 2021-10 Yes Notes: Chilango jeannette 2-03 (Same as: l 13:57: Mylicon, Jim 00 Phazyme, Genasyme) ocular 2021-10 Yes Notes: Memoria lubricant 2-03 (Same as: l solution 13:57: Aquasite) Herm ondina sodium 2021-10 Yes Notes: Memoria chloride 2-03 (Same as: l nasal 13:57: [place], Jim solution 00 Deep Sea Nasal [place]). Calmoseptin 2021-10 Yes Notes: Chilango jeannette e topical 2-03 (Same as: l ointment 13:57: Calmosepti Her gomez 00 ne) cetirizine 2021-10 Yes Notes: Memor ia 2-03 (Same As: l 13:57: Zyrtec) Jim 00 Tessalon 2021-10 Yes Notes: Memoria Perles 2-03 (Same As: l 13:57: Tessalon [place] 00 Perles) "Do Not Crush" Blistex 2021-10 Yes Notes: Memoria topical 2-03 Same as: l ointment 13:57: Blistex Juan Jose n 00 albuterol 2021-10 Yes Notes: SEE Me moria 0.083% 2-03 RT l inhalation 13:57: DOCUMENTAT H ermann solution 00 ION (Same as: Proventil) Aquaphor 2021-10 Yes 1 appl, Memori a topical 2- Route: l ointment 13:57: TOP, Q4H, Herm onidna 00 Drug form: OINT, PRN Dry Skin, Start date: 09/17/22 7:57:00 [employer], Duration: 30 day, Stop date: 10/17/22 7:56:00 [employer], 0 oxyCODONE 5 2021-10 Yes Notes: Chilango jeannette mg/5 mL 2-03 (Same l oral 13:57: as:'Roxico Jim solution 00 done) To be drawn up in 3 mL syr oxyCODONE 2021-10 Yes Notes: Memori a immediate 2-03 (Same as: l release 13:57: 'Roxicodon Herm ondina 00 e) Reglan 2021-10 Yes Notes: Memoria 2-03 (Same as: l 13:57: Reglan) [place] 00 dextrometho 2021-10 Yes Notes: Chilango jeannette rphan-guaiF 2-03 (dextromet l ENesin 20 13:57: horphan-gu He rmann mg-200 00 aifenesin mg/10 mL 10-100mg/5 oral liquid ml 10 ml oral SOLN ud) (Same as: Robitussin DM) Robaxin 2021-10 Yes Notes: Memoria 2-03 (Same l 13:57: as:Robaxin Jim ) diphenhydra 2021-10 Yes 1 appl, Mem oria mine-zinc 2-03 Route: l acetate 13:57: TOP, QID, Rashmi nn topical 00 Drug form: 2%-0.1% CRM, PRN cream as needed for itching, Start date: 09/17/22 7:57:00 [employer], Duration: 30 day, Stop date: 10/17/22 7:56:00 [employer], 0 levothyroxi 2021-10 Yes Notes: Chilango jeannette ne 2-03 Take 1 l 12:30: hour [place] 00 before or 2 hours after meal; Enteral feeds may interefere with the absorption of this medication .(Same as:Levothr oid, Synthroid) liothyronin 2021-10 Yes Notes: Chilango jeannette e 2-03 (Same as: l 12:30: Cytomel) Jim acetaminoph 2021-10 No Notes: Max Memoria en 2-03 acetaminop l 04:00: hen 4000 Jim 00 mg/day (4 gm/day). (Same as: Tylenol Extra Strength) senna 2021-10 No Notes: Memoria 2-03 (Same as: l 03:00: Senokot) [place] 00 Flomax 2021-10 Yes Notes: Memoria 2-03 (Same As: l 03:00: Flomax) Jim 00 "Do Not Crush" metoprolol 2021-10 No 25 mg, 1 Mem oria tartrate 2-03 tab, l 03:00: Route: PO, [place] 00 Drug form: TAB, Q12H, Dosing Weight 65.909, kg, Start date: 09/16/22 21:00:00 [employer], Duration: 30 day, Stop date: 10/16/22 9:00:00 [employer] lactulose 2021-10 Yes Notes: Memori a 10 g/15 mL 2-02 (Same l oral syrup 23:00: as:Chronul H ermann ac) diclofenac 2021-10 Yes Notes: Memor ia topical 1% 2- Same as: l gel 23:00: Voltaren [place] Gel Symbicort 2021-10 Yes Notes: Memori a 160/4.5 2-02 (Same as: l inhalation 23:00: Symbicort) H ermann aerosol WASTE: with Aerosol - adapter Return to Pharmacy albuterol-i 2021-10 No Notes: Chilango jeannette pratropium 2-02 (Same as: l 2.5-0.5 mg 20:42: Duoneb) Herm ondina inhalation 00 solution oxyCODONE 2021-10 No Notes: Memori a immediate 2-02 (Same as: l release 20:13: Roxicodone Herm ) polyethylen 2021-10 No Notes: Chilango jeannette e glycol 2-02 Dissolve l 3350 20:13: in 8 oz of water or juice. (Same as: Miralax) bisacodyl 2021-10 No Notes: Memori a 2-02 (Same As: l 20:13: Dulcolax, Jim Bisco-Lax) ondansetron 2021-10 No Notes: Chilango jeannette 2-02 (Same as: l 20:13: Zofran) MEDICATION WASTE Product Size: 4 mg Product Wasted: ___ mg melatonin 2021-10 No Notes: Memori a 2-02 (Same as: l 20:13: Melatonin) tramadol 2021-10 Yes 50 mg, PO, Mem oria 2-02 Q4-6H, PRN l 19:37: Pain, # 20 tab, 0 Refill(s) Omnipaque 2021-10 No 100 mL, Memor ia 350 mg/mL 11-17 Route: l 15:47: IVP, Drug Form: SOLN, Dosing Weight 65.909, kg, ONCALL, STAT, Start date: 09/16/22 9:47:00 [employer], Duration: 1 doses or times, Dose = 2.2ml/kg, Max dose = 100ml -- "To be infused by Radiology Staff ONLY" Benadryl 2021-10 No 50 mg, Memoria 11-17 Route: l 15:27: IVP, ONCE, Dosing Weight 65.909, kg, Priority: STAT, Start date: 09/16/22 9:27:00 [employer], Stop date: 09/16/22 9:27:00 [employer] morphine 2021-10 No Notes: Memoria Sulfate 11-17 (Same l 13:17: as:MORPhin e Sulfate) Dilaudid 2021-10 No 0.5 mg, Memori a 11-17 Route: l 11:28: IVP, ONCE, Dosing Weight 65.909, kg, Priority: STAT, Start date: 09/16/22 5:28:00 [employer], Stop date: 09/16/22 5:28:00 [employer] morphine 2021-10 No 4 mg, Memoria Sulfate 11-17 Route: l 10:17: IVP, ONCE, Dosing Weight 65.909, kg, Priority: STAT, Start date: 09/16/22 4:17:00 [employer], Stop date: 09/16/22 4:17:00 [employer] Omnipaque 2021-10 No 70 mL, Memori a 350 mg/mL 11-17 Route: l 08:42: IVP, Drug Form: SOLN, Dosing Weight 65.909, kg, ONCALL, STAT, Start date: 09/16/22 2:42:00 [employer], Duration: 1 doses or times, Dose = 2.2ml/kg, Max dose = 100ml -- "To be infused by Radiology Staff ONLY" morphine 2021-10 No 4 mg, Memoria Sulfate 11-17 Route: l 07:44: IVP, ONCE, Dosing Weight 65.909, kg, Priority: STAT, Start date: 09/16/22 1:44:00 [employer], Stop date: 09/16/22 1:44:00 [employer] morphine 10 0 Yes 10 mg = 5 M emoria mg/5 mL 9-20 ml, PO, l oral 17:28: Q4H, PRN [place] solution 00 Pain, If pain score is only 4-6, take 2.5 ml., X 5 day, # 120 mL, 0 Refill(s), Pharmacy: [facility], 185.42, cm, 06/18/22 15:22:00 CDT, Height, 81.818, kg, 06/18/22 15:22:00 CDT, Weight morphine 10 2021-0 Yes 10 mg = 5 M emoria mg/5 mL 9-20 ml, PO, l oral 17:28: Q4H, PRN [place] solution 00 Pain, If pain score is only 4-6, take 2.5 ml., X 5 day, # 120 mL, 0 Refill(s), Pharmacy: [facility], 185.42, cm, 06/18/22 15:22:00 CDT, Height, 81.818, kg, 06/18/22 15:22:00 CDT, Weight morphine 10 2021-0 Yes 10 mg = 5 M emoria mg/5 mL 9-20 ml, PO, l oral 17:28: Q4H, PRN [place] solution 00 Pain, If pain score is only 4-6, take 2.5 ml., X 5 day, # 120 mL, 0 Refill(s), Pharmacy: [facility] [place], 185.42, cm, 06/18/22 15:22:00 CDT, Height, 81.818, kg, 06/18/22 15:22:00 CDT, Weight morphine 10 2021-0 Yes 10 mg = 5 M emoria mg/5 mL 9-20 mL, PO, l oral 14:14: Q4H, PRN Jim solution 00 Pain Score 7-10, Patient is on Hospice care Take 2.5 ml if pain is scored 4-6., X 5 day, # 120 mL, 0 Refill(s), Pharmacy: [facility], 185.42, cm, 06/18/22 15:22:00 CDT, Height, 81.818, kg, 06/18/22 15:22:00 CDT, We... morphine 10 2021-0 Yes 10 mg = 5 M emoria mg/5 mL 9-20 mL, PO, l oral 14:14: Q4H, PRN Jim solution 00 Pain Score 7-10, Patient is on Hospice care Take 2.5 ml if pain is scored 4-6., X 5 day, # 120 mL, 0 Refill(s), Pharmacy: [facility], 185.42, cm, 06/18/22 15:22:00 CDT, Height, 81.818, kg, 06/18/22 15:22:00 CDT, We... morphine 10 Yes 10 mg = 5 M emoria mg/5 mL 9-20 mL, PO, l oral 14:14: Q4H, PRN [place] solution 00 Pain Score 7-10, Patient is on Hospice care Take 2.5 ml if pain is scored 4-6., X 5 day, # 120 mL, 0 Refill(s), Pharmacy: [facility], 185.42, cm, 06/18/22 15:22:00 CDT, Height, 81.818, kg, 06/18/22 15:22:00 CDT, We... metoprolol Yes 25 mg = 1 Me moria tartrate 25 9-20 tab, PO, l mg oral 14:13: Q12H, # 60 Herm ondina tablet 00 tab, 0 Refill(s), Pharmacy: [facility], 185.42, cm, 06/18/22 15:22:00 CDT, Height, 81.818, kg, 06/18/22 15:22:00 CDT, Weight metoprolol Yes 25 mg = 1 Me moria tartrate 25 9-20 tab, PO, l mg oral 14:13: Q12H, # 60 Herm ondina tablet 00 tab, 0 Refill(s), Pharmacy: [facility], 185.42, cm, 06/18/22 15:22:00 CDT, Height, 81.818, kg, 06/18/22 15:22:00 CDT, Weight metoprolol Yes 25 mg = 1 Me moria tartrate 25 9-20 tab, PO, l mg oral 14:13: Q12H, # 60 Herm ondina tablet 00 tab, 0 Refill(s), Pharmacy: [facility], 185.42, cm, 06/18/22 15:22:00 CDT, Height, 81.818, kg, 06/18/22 15:22:00 CDT, Weight melatonin No Notes: Memori a -18 (Same as: l 15:56: Melatonin) [place] 00 Roxanol No Notes: Memoria 18 (Same l 15:56: as:MORPhin Jim e Sulfate) melatonin No Notes: Memori a 9-18 (Same as: l 15:56: Melatonin) Jim 00 Roxanol No Notes: Memoria 9-18 (Same l 15:56: as:MORPhin [place] 00 e Sulfate) melatonin No Notes: Memori a 9-18 (Same as: l 15:56: Melatonin) Jim 00 Roxanol No Notes: Memoria 9-18 (Same l 15:56: as:MORPhin [place] 00 e Sulfate) Lasix No Notes: Memoria 9-17 (Same as: l 22:15: Lasix) [place] 00 MEDICATION WASTE Product Size: 40 mg Product Wasted: 0 mg Lasix No Notes: Memoria 9-17 (Same as: l 22:15: Lasix) Jim 00 MEDICATION WASTE Product Size: 40 mg Product Wasted: 0 mg Lasix No Notes: Memoria 9-17 (Same as: l 22:15: Lasix) [place] 00 MEDICATION WASTE Product Size: 40 mg Product Wasted: 0 mg liothyronin No Notes: Chilango jeannette e 9-17 (Same as: l 14:16: Cytomel) Jim 00 liothyronin No Notes: Chilango jeannette e 9-17 (Same as: l 14:16: Cytomel) [place] 00 liothyronin No Notes: Chilango jeannette e 9-17 (Same as: l 14:16: Cytomel) [place] morphine No Notes: Memoria Sulfate 9-17 (Same l 12:33: as:MORPhin Jim 00 e Sulfate) morphine No Notes: Memoria Sulfate 9-17 (Same l 12:33: as:MORPhin Jim 00 e Sulfate) morphine No Notes: Memoria Sulfate 9-17 (Same l 12:33: as:MORPhin Jim 00 e Sulfate) Lasix No Notes: Memoria 9-17 (Same as: l 12:18: Lasix) Jim 00 MEDICATION WASTE Product Size: 40 mg Product Wasted: ___ mg Lasix No Notes: Memoria 9- (Same as: l 12:18: Lasix) [place] 00 MEDICATION WASTE Product Size: 40 mg Product Wasted: ___ mg Lasix No Notes: Memoria - (Same as: l 12:18: Lasix) [place] 00 MEDICATION WASTE Product Size: 40 mg Product Wasted: ___ mg methylPREDN No Notes: Chilango jeannette ISolone -17 (Same l SODium 09:38: as:Solu-ME Rashmi nn [...] or peanuts. Adult No Notes: Memoria Parenteral 9-17 Must use l Nutrition 03:00: 1.2 micron He rmann Custom - 00 filter AND Peripheral Lipids (PPN not should not TPN) 1,800 be mL administer ed to patients who are allergic to soy, fish, egg or peanuts. Saline No Notes: Memoria Flush 0.9% 9-16 (Same as: l 21:00: BD [place] 00 Posiflush) Saline No Notes: Memoria Flush 0.9% 9-16 (Same as: l 21:00: BD [place] 00 Posiflush) Saline No Notes: Memoria Flush 0.9% 9-16 (Same as: l 21:00: BD [place] 00 Posiflush) Isolyte S No Notes: Memori a PH 7.4 9-16 (Same as: l 1,000 mL 20:14: Isolyte S Herm ondina 00 PH7.4, Normosol-R PH 7.4, Plasma-Lyt e A ) Isolyte S No Notes: Memori a PH 7.4 9-16 (Same as: l 1,000 mL 20:14: Isolyte S Herm ondina 00 PH7.4, Normosol-R PH 7.4, Plasma-Lyt e A ) Isolyte S No Notes: Memori a PH 7.4 9-16 (Same as: l 1,000 mL 20:14: Isolyte S Herm ondina 00 PH7.4, Normosol-R PH 7.4, Plasma-Lyt e A ) potassium No Notes: Memori a chloride 9-16 (Same as: l 20:00: KCL) 10 Jim 00 mEq/100ml product recommende d for peripheral line administra tion. Infuse no faster than 10 mEq/hr if given peripheral ly. potassium No Notes: Memori a chloride 9-16 (Same as: l 20:00: KCL) 10 [place] 00 mEq/100ml product recommende d for peripheral line administra tion. Infuse no faster than 10 mEq/hr if given peripheral ly. potassium No Notes: Memori a chloride 9-16 (Same as: l 20:00: KCL) 10 [place] 00 mEq/100ml product recommende d for peripheral line administra tion. Infuse no faster than 10 mEq/hr if given peripheral ly. LR IV 1,000 No 1,000 mL, M emoria mL 9-16 Rate: 125 l 19:57: ml/hr, [place] 00 Infuse over: 8 hr, Route: IV, [...] BSA: 2.06 m2, 0 LR IV 1,000 0 No 1,000 mL, M emoria mL 9-16 Rate: 125 l 19:57: ml/hr, Jim 00 Infuse over: 8 hr, Route: IV, Dosing Weight 81.818 kg, Total Volume: 1,000, Start date: 07/01/22 14:57:00 CDT, Duration: 2 day, Stop date: 07/03/22 14:56:00 CDT, BSA: 2.06 m2, 0 bisacodyl No Notes: Memori a 9-16 (Same As: l 19:00: Dulcolax, [place] 00 Bisco-Lax) bisacodyl No Notes: Memori a 9-16 (Same As: l 19:00: Dulcolax, Jim 00 Bisco-Lax) bisacodyl No Notes: Memori a 9-16 (Same As: l 19:00: Dulcolax, [place] 00 Bisco-Lax) Venelex No Notes: Memoria topical 9-16 Same as: l ointment 14:20: Venelex Juan Jose n 00 Non-Formul vicky Venelex No Notes: Memoria topical 9-16 Same as: l ointment 14:20: Venelex Juan Jose n 00 Non-Formul vicky Venelex No Notes: Memoria topical 9-16 Same as: l ointment 14:20: Venelex Juan Jose n 00 Non-Formul vicky levothyroxi No Notes: Chilango jeannette ne 9-16 (Same as: l 14:00: Synthroid) [place] 00 Reconstitu te with 5ml of NS. Final concentrat ion = 20 micrograms /ml. Shake well and use immediatel y after reconstitu tion and discard remaining solution. lidocaine No Notes: Memori a 1% 9-16 Preservati l 14:00: ve free. Jim 00 (Same as: Xylocaine MPF) levothyroxi No Notes: Chilango jeannette ne 9-16 (Same as: l 14:00: Synthroid) Jim 00 Reconstitu te with 5ml of NS. Final concentrat ion = 20 micrograms /ml. Shake well and use immediatel y after reconstitu tion and discard remaining solution. lidocaine No Notes: Memori a 1% 9-16 Preservati l 14:00: ve free. [place] 00 (Same as: Xylocaine MPF) levothyroxi No Notes: Chilango jeannette ne 9-16 (Same as: l 14:00: Synthroid) [place] 00 Reconstitu te with 5ml of NS. Final concentrat ion = 20 micrograms /ml. Shake well and use immediatel y after reconstitu tion and discard remaining solution. lidocaine No Notes: Memori a 1% 9-16 Preservati l 14:00: ve free. Jim 00 (Same as: Xylocaine MPF) Saline No Notes: Memoria Flush 0.9% 9-16 (Same as: l 13:13: BD [place] 00 Posiflush) Saline No Notes: Memoria Flush 0.9% 9-16 (Same as: l 13:13: BD Jim 00 Posiflush) Saline No Notes: Memoria Flush 0.9% 9-16 (Same as: l 13:13: BD [place] 00 Posiflush) piperacilli No Notes: Chilango jeannette n-tazobacta 9-16 (Same as: l 12:00: Zosyn) Dosing based on Piperacill in component MEDICATION WASTE Product Size: 3375 mg Product Wasted: 0 mg piperacilli No Notes: Chilango jeannette n-tazobacta 9-16 (Same as: l 12:00: Zosyn) Dosing based on Piperacill in component MEDICATION WASTE Product Size: 3375 mg Product Wasted: 0 mg piperacilli No Notes: Chilango jeannette n-tazobacta 9-16 (Same as: [facility] 12:00: Zosyn) Dosing based on Piperacill in [...] BSA: 2.06 m2, 0 LR IV 500 0 No 500 mL, Memor ia mL 9-16 Rate: 500 l 11:56: ml/hr, [place] 00 Infuse over: 1 hr, Route: IV, Dosing Weight 81.818 kg, Total Volume: 500, Start date: 07/01/22 6:56:00 CDT, Duration: 1 doses or times, Stop date: 07/01/22 7:55:00 CDT, BSA: 2.06 m2, 0 LR IV 500 0 No 500 mL, Memor ia mL 9-16 Rate: 500 l 11:56: ml/hr, [place] 00 Infuse over: 1 hr, Route: IV, Dosing Weight 81.818 kg, Total Volume: 500, Start date: 07/01/22 6:56:00 CDT, Duration: 1 doses or times, Stop date: 07/01/22 7:55:00 CDT, BSA: 2.06 m2, 0 MiraLax No Notes: Memoria 9-15 Dissolve l 22:00: in 8 oz of [place] 00 water or juice. (Same as: Miralax) senna 8.6 No Notes: Memori a mg oral 9-15 (Same as: l tablet 22:00: Senokot) naproxen No Notes: Memoria 9-15 (Same as: l 22:00: Naprosyn) Jim 00 Take with food. MiraLax No Notes: Memoria 9-15 Dissolve l 22:00: in 8 oz of [place] 00 water or juice. (Same as: Miralax) senna 8.6 No Notes: Memori a mg oral 9-15 (Same as: l tablet 22:00: Senokot) Jim 00 naproxen No Notes: Memoria 9-15 (Same as: l 22:00: Naprosyn) Jim 00 Take with food. MiraLax No Notes: Memoria 9-15 Dissolve l 22:00: in 8 oz of [place] 00 water or juice. (Same as: Miralax) senna 8.6 No Notes: Memori a mg oral 9-15 (Same as: l tablet 22:00: Senokot) [place] 00 naproxen No Notes: Memoria 9-15 (Same as: l 22:00: Naprosyn) Jim Take with food. tramadol 50 No Notes: [...] oria 9-15 IV push l 12:30: reconstitu [place] 00 te with 10 ml 0.9% sodium chloride and push over 2 minutes. (Same as: Protonix) Protonix No Notes: For Mem oria 9-15 IV push l 12:30: reconstitu Jim 00 te with 10 ml 0.9% sodium chloride and push over 2 minutes. (Same as: Protonix) D5LR 1,000 2021-0 No 1,000 mL, Me moria mL 9-15 Rate: 100 l 12:28: ml/hr, Jim 00 Infuse over: 10 hr, Route: IV, Dosing Weight 81.818 kg, Total Volume: 1,000, Start date: 06/30/22 7:28:00 CDT, Duration: 30 day, Stop date: 07/30/22 7:27:00 CDT, BSA: 2.06 m2, 0 D5LR 1,000 2021-0 No 1,000 mL, Me moria mL 9-15 Rate: 100 l 12:28: ml/hr, [place] 00 Infuse over: 10 hr, Route: IV, Dosing Weight 81.818 kg, Total Volume: 1,000, Start date: 06/30/22 7:28:00 CDT, Duration: 30 day, Stop date: 07/30/22 7:27:00 CDT, BSA: 2.06 m2, 0 D5LR 1,000 2021-0 No 1,000 mL, Me moria mL 9-15 Rate: 100 l 12:28: ml/hr, [place] 00 Infuse over: 10 hr, Route: IV, Dosing Weight 81.818 kg, Total Volume: 1,000, Start date: 06/30/22 7:28:00 CDT, Duration: 30 day, Stop date: 07/30/22 7:27:00 CDT, BSA: 2.06 m2, 0 metoclopram No Notes: Chilango jeannette jd 9-15 (Same as: l 12:00: Reglan) [place] metoclopram No Notes: Chilango jeannette jd 9-15 (Same as: l 12:00: Reglan) Jim metoclopram No Notes: Chilango jeannette jd 9-15 (Same as: l 12:00: Reglan) [place] remove No Notes: Memoria patch 9-15 Remove l 04:00: patch 12 [place] 00 hours after applicatio n each day. remove No Notes: Memoria patch 9-15 Remove l 04:00: patch 12 [place] 00 hours after applicatio n each day. remove No Notes: Memoria patch 9-15 Remove l 04:00: patch 12 [place] 00 hours after applicatio n each day. metoprolol No Notes: Memor ia tartrate 9-15 (Same as: l 02:00: Lopressor) [place] 00 metoprolol No Notes: Memor ia tartrate 9-15 (Same as: l 02:00: Lopressor) metoprolol No Notes: Memor ia tartrate 9-15 (Same as: l 02:00: Lopressor) Jim 00 hydromorpho No Notes: Chilango jeannette ne 9-14 Same as: l 22:49: Dilaudid Jim hydromorpho No Notes: Chilango jeannette ne 9-14 Same as: l 22:49: Dilaudid [place] hydromorpho No Notes: Chilango jeannette ne 9-14 Same as: l 22:49: Dilaudid Jim lidocaine No Notes: Memori a topical 9-14 Patch is l 16:00: applied to intact skin to cover painful area for up to 12 hours in a 24-hour period (12 hours on and 12 hours off). Please indicate the location of applicatio n site. Site 1: Remove old patch before applicatio n of new patch. (Same as Aspercreme Lidocaine Patch) lidocaine No Notes: Memori a topical 9-14 Patch is l 16:00: applied to [place] 00 intact skin to cover painful area for up to 12 hours in a 24-hour period (12 hours on and 12 hours off). Please indicate the location of applicatio n site. Site 1: Remove old patch before applicatio n of new patch. (Same as Aspercreme Lidocaine Patch) lidocaine No Notes: Memori a topical 9-14 Patch is l 16:00: applied to Jim 00 intact skin to cover painful area for up to 12 hours in a 24-hour period (12 hours on and 12 hours off). Please indicate the location of applicatio n site. Site 1: Remove old patch before applicatio n of new patch. (Same as Aspercreme Lidocaine Patch) Lactated 2021-0 No 1,000 mL, Chilango jeannette Ringers 9-14 1,000 l (Bolus) IV 13:03: ml/hr, Rashmi nn 00 Infuse Over: 1 hr, Route: IV, 1,000, Drug form: INJ, ONCE, Dosing Weight 81.818 kg, Start date: 06/29/22 8:03:00 CDT, Stop date: 06/29/22 8:03:00 CDT, 0 LR IV 1,000 2021-0 No 1,000 mL, M emoria mL 9-14 Rate: 125 l 13:03: ml/hr, Jim 00 Infuse over: 8 hr, Route: IV, Dosing Weight 81.818 kg, Total Volume: 1,000, Start date: 06/29/22 8:03:00 CDT, Duration: 2 day, Stop date: 07/01/22 8:02:00 CDT, BSA: 2.06 m2, 0 Lactated 2021-0 No 1,000 mL, Chilango jeannette Ringers 9-14 1,000 l (Bolus) IV 13:03: ml/hr, Rashmi nn 00 Infuse Over: 1 hr, Route: IV, 1,000, Drug form: INJ, ONCE, Dosing Weight 81.818 kg, Start date: 06/29/22 8:03:00 CDT, Stop date: 06/29/22 8:03:00 CDT, 0 Lactated 0 No 1,000 mL, Chilango jeannette Ringers 9-14 1,000 l (Bolus) IV 13:03: ml/hr, Rashmi nn 00 Infuse Over: 1 hr, Route: IV, 1,000, Drug form: INJ, ONCE, Dosing Weight 81.818 kg, Start date: 06/29/22 8:03:00 CDT, Stop date: 06/29/22 8:03:00 CDT, 0 LR IV 1,000 2021-0 No 1,000 mL, M emoria mL 9-14 Rate: 125 l 13:03: ml/hr, Jim 00 Infuse over: 8 hr, Route: IV, Dosing Weight 81.818 kg, Total Volume: 1,000, Start date: 06/29/22 8:03:00 CDT, Duration: 2 day, Stop date: 07/01/22 8:02:00 CDT, BSA: 2.06 m2, 0 LR IV 1,000 0 No 1,000 mL, M emoria mL 9-14 Rate: 125 l 13:03: ml/hr, Jim 00 Infuse over: 8 hr, Route: IV, Dosing Weight 81.818 kg, Total Volume: 1,000, Start date: 06/29/22 8:03:00 CDT, Duration: 2 day, Stop date: 07/01/22 8:02:00 CDT, BSA: 2.06 m2, 0 remove No Notes: Memoria patch 9-14 Remove l 09:00: patch 12 Jim 00 hours after applicatio n each day. remove No Notes: Memoria patch 9-14 Remove l 09:00: patch 12 [place] 00 hours after applicatio n each day. remove No Notes: Memoria patch 9-14 Remove l 09:00: patch 12 [place] 00 hours after applicatio n each day. lidocaine No Notes: Memori a topical 9-13 Patch is l 21:00: applied to [place] 00 intact skin to cover painful area for up to 12 hours in a 24-hour period (12 hours on and 12 hours off). Please indicate the location of applicatio n site. Site 1: Remove old patch before applicatio n of new patch. (Same as Aspercreme Lidocaine Patch) lidocaine No Notes: Memori a topical 9-13 Patch is l 21:00: applied to [place] 00 intact skin to cover painful area for up to 12 hours in a 24-hour period (12 hours on and 12 hours off). Please indicate the location of applicatio n site. Site 1: Remove old patch before applicatio n of new patch. (Same as Aspercreme Lidocaine Patch) lidocaine No Notes: Memori a topical 9-13 Patch is l 21:00: applied to [place] 00 intact skin to cover painful area for up to 12 hours in a 24-hour period (12 hours on and 12 hours off). Please indicate the location of applicatio n site. Site 1: Remove old patch before applicatio n of new patch. (Same as Aspercreme Lidocaine Patch) polyethylen No Notes: Chilango jeannette e glycol 9-12 Dissolve l 3350 14:21: in 8 oz of [place] 00 water or juice. (Same as: Miralax) senna No Notes: Memoria 9-12 (Same as: l 14:21: Senokot) Jim 00 polyethylen No Notes: Chilango jeannette e glycol 9-12 Dissolve l 3350 14:21: in 8 oz of [place] 00 water or juice. (Same as: Miralax) senna No Notes: Memoria 9-12 (Same as: l 14:21: Senokot) [place] 00 polyethylen No Notes: Chilango jeannette e glycol 9-12 Dissolve l 3350 14:21: in 8 oz of [place] 00 water or juice. (Same as: Miralax) senna No Notes: Memoria 9-12 (Same as: l 14:21: Senokot) Jim 00 Robaxin No Notes: Memoria 9-10 (Same l 23:19: as:Robaxin [place] 00 ) Robaxin No Notes: Memoria 9-10 (Same l 23:19: as:Robaxin Jim 00 ) Robaxin No Notes: Memoria 9-10 (Same l 23:19: as:Robaxin [place] 00 ) Robaxin No Notes: Memoria 9-10 (Same l 14:47: as:Robaxin [place] 00 ) Robaxin No Notes: Memoria 9-10 (Same l 14:47: as:Robaxin Jim ) Robaxin No Notes: Memoria 9-10 (Same l 14:47: as:Robaxin [place] ) morphine No Notes: Memoria Sulfate 9-10 (Same l 14:46: as:MORPhin [place] 00 e Sulfate) morphine 15 No Notes: Chilango jeannette mg oral 9-10 (Same l tablet 14:46: as:MORPhin Rashmi nn 00 e Sulfate) morphine No Notes: Memoria Sulfate 9-10 (Same l 14:46: as:MORPhin [place] 00 e Sulfate) morphine 15 No Notes: Chilango jeannette mg oral 9-10 (Same l tablet 14:46: as:MORPhin Rashmi nn 00 e Sulfate) morphine No Notes: Memoria Sulfate 9-10 (Same l 14:46: as:MORPhin [place] 00 e Sulfate) morphine 15 No Notes: Chilango jeannette mg oral 9-10 (Same l tablet 14:46: as:MORPhin Rashmi nn 00 e Sulfate) ceFAZolin No Notes: Memori a 9-10 (Same as l 03:00: Ancef) [place] 00 ceFAZolin No Notes: Memori a 9-10 (Same as l 03:00: Ancef) Jim 00 ceFAZolin No Notes: Memori a 9-10 (Same as l 03:00: Ancef) [place] 00 ceFAZolin No 2 gm, Memoria 9-10 Route: l 00:00: IVPB, ABXQ8H, Dosing Weight 81.818, kg, Start date: 06/24/22 19:00:00 CDT, Duration: 1 day, Stop date: 06/25/22 11:00:00 CDT, ABX Indication : Surgical Prophylaxi s ceFAZolin 2021-0 No 2 gm, Memoria 9-10 Route: l 00:00: IVPB, [place] 00 ABXQ8H, Dosing Weight 81.818, kg, Start date: 06/24/22 19:00:00 CDT, Duration: 1 day, Stop date: 06/25/22 11:00:00 CDT, ABX Indication : Surgical Prophylaxi s ceFAZolin 2021-0 No 2 gm, Memoria 9-10 Route: l 00:00: IVPB, Jim ABXQ8H, Dosing Weight 81.818, kg, Start date: 06/24/22 19:00:00 CDT, Duration: 1 day, Stop date: 06/25/22 11:00:00 CDT, ABX Indication : Surgical Prophylaxi s heparin 2021-0 No Notes: Memoria 5000 9-09 porcine l units/mL 21:00: heparin Juan Jose n injectable 00 solution heparin 2021-0 No Notes: Memoria 5000 9-09 porcine l units/mL 21:00: heparin Juan Jose n injectable 00 solution heparin 2021-0 No Notes: Memoria 5000 9-09 porcine l units/mL 21:00: heparin Juan Jose n injectable 00 solution fentaNYL 2021-0 No Route: IV, Mem oria (ANES) 06-24 Drug form: l 20:52: INJ, ONCE, [place] Stop date: 06/24/22 15:52:00 CDT ondansetron 0 No Route: IV, Memoria (ANES) 06-24 Drug form: l 20:52: INJ, ONCE, [place] Stop date: 06/24/22 15:52:00 CDT fentaNYL 2021-0 No Route: IV, Mem oria (ANES) 06-24 Drug form: l 20:52: INJ, ONCE, Jim Stop date: 06/24/22 15:52:00 CDT ondansetron 2021-0 No Route: IV, Memoria (ANES) 06-24 Drug form: l 20:52: INJ, ONCE, [place] Stop date: 06/24/22 15:52:00 CDT fentaNYL 2021-0 No Route: IV, Mem oria (ANES) [...] 15:11:00 CDT lidocaine 2021-0 No Route: IV, moria (ANES) 06-24 Drug form: l 20:05: [...] ONCE, Stop date: 06/24/22 15:00:00 CDT ceFAZolin No Route: IV, Me alexandra (ANES) 06-24 Drug form: l 20:00: INJ, ONCE, Stop date: 06/24/22 15:00:00 CDT rocuronium No Route: IV, Tina layria (ANES) 06-24 Drug form: l 20:00: INJ, ONCE, Stop date: 06/24/22 15:00:00 CDT ceFAZolin No Route: IV, Me alexandra (ANES) 06-24 Drug form: l 20:00: INJ, ONCE, Stop date: 06/24/22 15:00:00 CDT ANES No Notes: Memoria hydrALAZINE 06-24 (Same as: l 19:35: Apresoline ) Push over 5 minutes ANES No 10 mg, 2 Memoria labetalol 06-24 mL, Route: l 19:35: IVP, Drug form: INJ, Q5Min, Dosing Weight 81.818, kg, PRN Elevated BP, Start date: 06/24/22 14:35:00 CDT, Duration: 5 doses or times, Stop date: 06/25/22 0:00:00 CDT, 0 ANES No Notes: Max Memoria acetaminoph 06-24 acetaminop l en 19:35: hen 4000 mg/day (4 gm/day). (Same as: Tylenol Extra Strength) ANES No Notes: Memoria oxyCODONE 5 06-24 (Same as: l mg 19:35: Roxicodone ) release tablet ANES No Notes: Memoria fentaNYL 06-24 (Same as: l 19:35: Sublimaze) Preservati ve free. ANES No Notes: Memoria HYDROmorpho 06-24 Same as: l ne 19:35: Dilaudid ANES No Notes: Memoria flumazenil 06-24 (Same as: l 19:35: Romazicon) ANES No Notes: Memoria naloxone - Same as l 19:35: Narcan [place] ANES No Notes: SEE Memoria albuterol - RT l 0.083% 19:35: DOCUMENTAT Rashmi nn inhalation 00 ION (Same solution as: Proventil) ANES No Notes: Memoria ondansetron 06-24 (Same as: l 19:35: Zofran) [place] MEDICATION WASTE Product Size: 4 mg Product Wasted: ___ mg ANES No Notes: Do Memoria promethazin 06-24 not give l e + Sodium 19:35: IV push. Her gomez Chloride 00 (Same as: 0.9% IV 50 Phenergan) mL ANES No Notes: Memoria ondansetron 06-24 (Same as: l 19:35: Zofran) [place] MEDICATION WASTE Product Size: 4 mg Product Wasted: ___ mg ANES No Notes: Do Memoria promethazin 06-24 not give l e + Sodium 19:35: IV push. Her gomez Chloride 00 (Same as: 0.9% IV 50 Phenergan) mL ANES No Notes: Memoria hydrALAZINE 06-24 (Same as: l 19:35: Apresoline ) Push over 5 minutes ANE No 10 mg, 2 Memoria labetalol 06-24 mL, Route: l 19:35: IVP, Drug Jim 00 form: INJ, Q5Min, Dosing Weight 81.818, kg, PRN Elevated BP, Start date: 06/24/22 14:35:00 CDT, Duration: 5 doses or times, Stop date: 06/25/22 0:00:00 CDT, 0 ANES No Notes: Max Memoria acetaminoph 06-24 acetaminop l en 19:35: hen 4000 [place] 00 mg/day (4 gm/day). (Same as: Tylenol Extra Strength) ANES No Notes: Memoria oxyCODONE 5 06-24 (Same as: l mg 19:35: Roxicodone [place] immediate ) release tablet ANES No Notes: Memoria fentaNYL 06-24 (Same as: l 19:35: Sublimaze) Preservati ve free. ANES No Notes: Memoria HYDROmorpho 06-24 Same as: l ne 19:35: Dilaudid [place] ANES No Notes: Memoria flumazenil 06-24 (Same as: l 19:35: Romazicon) ANES No Notes: Memoria naloxone 06-24 Same as l 19:35: Narcan Jim ANES No Notes: SEE Memoria albuterol 06-24 RT l 0.083% 19:35: DOCUMENTAT Rashmi nn inhalation 00 ION (Same solution as: Proventil) ANES No Notes: Memoria ondansetron 06-24 (Same as: l 19:35: Zofran) MEDICATION WASTE Product Size: 4 mg Product Wasted: ___ mg ANES No Notes: Do Memoria promethazin 06-24 not give l e + Sodium 19:35: IV push. Her gomez Chloride 00 (Same as: 0.9% IV 50 Phenergan) mL ANES No Notes: Memoria hydrALAZINE 06-24 (Same as: l 19:35: Apresoline ) Push over 5 minutes ANES No 10 mg, 2 Memoria labetalol 06-24 mL, Route: l 19:35: IVP, Drug form: INJ, Q5Min, Dosing Weight 81.818, kg, PRN Elevated BP, Start date: 06/24/22 14:35:00 CDT, Duration: 5 doses or times, Stop date: 06/25/22 0:00:00 CDT, 0 ANES No Notes: Max Memoria acetaminoph 06-24 acetaminop l en 19:35: hen 4000 [place] 00 mg/day (4 gm/day). (Same as: Tylenol Extra Strength) ANES No Notes: Memoria oxyCODONE 5 06-24 (Same as: l mg 19:35: Roxicodone [place] immediate 00 ) release tablet ANES No Notes: Memoria fentaNYL 06-24 (Same as: l 19:35: Sublimaze) Preservati ve free. ANES No Notes: Memoria HYDROmorpho 06-24 Same as: l ne 19:35: Dilaudid ANES No Notes: Memoria flumazenil 06-24 (Same as: l 19:35: Romazicon) ANES No Notes: Memoria naloxone 06-24 Same as l 19:35: Narcan ANES No Notes: SEE Memoria albuterol 06-24 [...] date: 06/24/22 14:34:00 CDT Exparel No Notes: Memoria 06-24 (Same as: l 16:00: Exparel) NOT [...] 133 mg (10 mL) [facility] ([facility] l 16:00: Exparel) NOT [...] 133 mg (10 mL) Exparel No Notes: Yosef 06-24 (Same as: l 16:00: Exparel) Jim 00 NOT FOR IV use Postoperat max analgesia: [...] (10 mL) remove No Notes: Memoria patch 9-09 Remove l 15:27: patch 12 [place] 00 hours after applicatio n each day. remove No Notes: Memoria patch 9-09 Remove l 15:27: patch 12 [place] 00 hours after applicatio n each day. remove No Notes: Memoria patch 9-09 Remove l 15:27: patch 12 [place] 00 hours after applicatio n each day. Vitamin B12 No Notes: Chilango jeannette - (Same As: l 14:00: Vitamin [place] 00 B-12) Vitamin B12 No Notes: Chilango jeannette - (Same As: l 14:00: Vitamin Jim 00 B-12) Vitamin B12 No Notes: Chilango jeannette - (Same As: l 14:00: Vitamin [place] 00 B-12) remove No Notes: Memoria patch 9-09 Remove l 02:00: patch 12 [place] 00 hours after applicatio n each day. remove No Notes: Memoria patch 9-09 Remove l 02:00: patch 12 [place] 00 hours after applicatio n each day. remove No Notes: Memoria patch 9-09 Remove l 02:00: patch 12 [place] 00 hours after applicatio n each day. acetaminoph No Notes: Max Memoria en 08 acetaminop l 19:00: hen = [place] 00 4000mg/day (4 gm/day). (Same as: Tylenol) acetaminoph No Notes: Max Memoria en 9-08 acetaminop l 19:00: hen = [place] 00 4000mg/day (4 gm/day). (Same as: Tylenol) acetaminoph No Notes: Max Memoria en 9-08 acetaminop l 19:00: hen = [place] 00 4000mg/day (4 gm/day). (Same as: Tylenol) SMOG Enema No Notes: Memor ia -08 saline for l 16:20: irrigation Jim 00 (1L bottle) 100 mL, mineral oil 100 mL, glycerine 100 mL. Dispense (300 ml) in 1L NS bottle SMOG Enema No Notes: Memor ia 9-08 saline for l 16:20: irrigation [place] 00 (1L bottle) 100 mL, mineral oil 100 mL, glycerine 100 mL. Dispense (300 ml) in 1L NS bottle SMOG Enema No Notes: Memor ia 9-08 saline for l 16:20: irrigation [place] 00 (1L bottle) 100 mL, mineral oil 100 mL, glycerine 100 mL. Dispense (300 ml) in 1L NS bottle senna No Notes: Memoria 9-08 (Same as: l 14:00: Senokot) [place] 00 polyethylen No Notes: Chilango jeannette e glycol 9-08 Dissolve l 3350 14:00: in 8 oz of [place] 00 water or juice. (Same as: Miralax) senna No Notes: Memoria 9-08 (Same as: l 14:00: Senokot) Jim 00 polyethylen No Notes: Chilango jeannette e glycol 9-08 Dissolve l 3350 14:00: in 8 oz of [place] 00 water or juice. (Same as: Miralax) senna No Notes: Memoria 9-08 (Same as: l 14:00: Senokot) Jim 00 polyethylen No Notes: Chilango jeannette e glycol 9-08 Dissolve l 3350 14:00: in 8 oz of Jim 00 water or juice. (Same as: Miralax) benzocaine No Notes: Memor ia topical 9-08 Non-Formul l 13:51: vicky Drug Jim 00 (Same as: Chlorasept ic) benzocaine No Notes: Memor ia topical 9-08 Non-Formul l 13:51: vicky Drug Jim 00 (Same as: Chlorasept ic) benzocaine No Notes: Memor ia topical 9-08 Non-Formul l 13:51: vicky Drug [place] 00 (Same as: Chlorasept ic) hydromorpho No Notes: Chilango jeannette ne 9-08 Same as: l 13:34: Dilaudid [place] 00 naloxone No Notes: Memoria 9-08 Same as l 13:34: Narcan [place] 00 bisacodyl No Notes: Memori a 06-23 (Same [...] 2% 13:34: TOP, QID, He rmann cream Drug form: CRM, PRN as needed for [...] Memoria 06-23 (Same As: l 13:34: Tums) Calcium Carbonate 500 mg = 200 mg elemental calcium Dose = mg calcium carbonate ( mg elemental calcium) simethicone No Notes: Chilango jeannette 06-23 (Same as: l 13:34: Mylicon) ocular No Notes: Memoria lubricant 06-23 (Same as: l solution 13:34: Aquasite) sodium No Notes: Memoria chloride 9-08 (Same as: l nasal 13:34: [place], [place] solution 00 Deep Sea Nasal [place]). Calmoseptin No Notes: Chilango jeannette e topical 08 (Same as: l ointment 13:34: Calmosepti Her gomez 00 ne) cetirizine No Notes: Memor ia 9-08 (Same As: l 13:34: Zyrtec) Jim 00 Tessalon No Notes: Memoria Perles -08 (Same As: l 13:34: Tessalon Jim 00 Perles) "Do Not Crush" Blistex No Notes: Memoria topical -08 Same as: l ointment 13:34: Blistex Juan Jose n 00 Robitussin- No Notes: Chilango jeannette DM 06-23 (dextromet l 13:34: horphan-gu [place] 00 aifenesin 10-100mg/5 ml 10 ml oral SOLN ud) (Same as: Robitussin DM) albuterol No Notes: SEE Me moria 0.083% 08 RT l inhalation 13:34: DOCUMENTAT H ermann solution 00 ION (Same as: Proventil) Eucerin No Notes: Memoria topical 08 (Same as: l cream 13:34: Eucerin) Jim 00 oxyCODONE No Notes: Memori a immediate 08 (Same as: l release 13:34: Roxicodone Herm ondina 00 ) Reglan No Notes: Memoria -08 (Same as: l 13:34: Reglan) [place] 00 hydromorpho No Notes: Chilango jeannette ne -08 Same as: l 13:34: Dilaudid [place] 00 naloxone No Notes: Memoria 9-08 Same as l 13:34: Narcan Jim 00 bisacodyl No Notes: Memori a -08 (Same As: l 13:34: Dulcolax, [place] 00 Bisco-Lax) ondansetron No Notes: Chilango jeannette -08 (Same as: l 13:34: Zofran) Jim 00 MEDICATION WASTE Product Size: 4 mg Product Wasted: ___ mg melatonin No Notes: Memori a 06-23 (Same as: l 13:34: Melatonin) Flonase No Notes: Memoria 0.05 mg/inh 06-23 (Same as: l nasal spray 13:34: Flonase) He diphenhydrA No 1 appl, Mem oria MINE 06-23 Route: l topical 2% 13:34: TOP, QID, He rmann cream Drug form: CRM, PRN as needed for [...] Memoria 06-23 (Same As: l 13:34: Tums) Calcium Carbonate 500 mg = 200 mg elemental calcium Dose = mg calcium carbonate ( mg elemental calcium) simethicone No Notes: Chilango jeannette 06-23 (Same as: l 13:34: Mylicon) ocular No Notes: Memoria lubricant 06-23 (Same as: l solution 13:34: Aquasite) ondina sodium No Notes: Memoria chloride 06-23 (Same as: l nasal 13:34: [place], [place] solution 00 Deep Sea Nasal [place]). Calmoseptin No Notes: Chilango jeannette e topical 06-23 (Same as: l ointment 13:34: Calmosepti Her gomez 00 ne) cetirizine No Notes: Memor ia 9-08 (Same As: l 13:34: Zyrtec) Jim 00 Tessalon No Notes: Memoria Perles - (Same As: l 13:34: Tessalon Jim 00 Perles) "Do Not Crush" Blistex No Notes: Memoria topical 06-23 Same as: l ointment 13:34: Blistex Juan Jose n 00 Robitussin- No Notes: Chilango jeannette DM 06-23 (dextromet l 13:34: horphan-gu [place] 00 aifenesin 10-100mg/5 ml 10 ml oral SOLN ud) (Same as: Robitussin DM) albuterol No Notes: SEE Me moria 0.083% 06-23 RT l inhalation 13:34: DOCUMENTAT H ermann solution 00 ION (Same as: Proventil) Eucerin No Notes: Memoria topical 06-23 (Same as: l cream 13:34: Eucerin) [place] 00 oxyCODONE No Notes: Memori a immediate 06-23 (Same as: l release 13:34: Roxicodone Herm ) Reglan No Notes: Memoria -08 (Same as: l 13:34: Reglan) Jim 00 hydromorpho No Notes: Chilango jeannette ne 06-23 Same as: l 13:34: Dilaudid [place] 00 naloxone No Notes: Memoria - Same as l 13:34: Narcan [place] 00 bisacodyl No Notes: Memori a -08 (Same As: l 13:34: Dulcolax, Jim 00 Bisco-Lax) ondansetron No Notes: Chilango jeannette -08 (Same as: l 13:34: Zofran) Jim 00 MEDICATION WASTE Product Size: 4 mg Product Wasted: ___ mg melatonin No Notes: Memori a - (Same as: l 13:34: Melatonin) [place] Flonase No Notes: Memoria 0.05 mg/inh 06-23 [...] Memoria 06-23 (Same As: l 13:34: Tums) Calcium Carbonate 500 mg = 200 mg elemental calcium Dose = mg calcium carbonate ( mg elemental calcium) simethicone No Notes: Chilango jeannette 06-23 (Same as: l 13:34: Mylicon) [place] 00 ocular No Notes: Memoria lubricant 06-23 (Same as: l solution 13:34: Aquasite) Herm ondina 00 sodium No Notes: Memoria chloride 06-23 (Same as: l nasal 13:34: [place], [place] solution 00 Deep Sea Nasal [place]). Calmoseptin No Notes: Chilango jeannette e topical 06-23 (Same as: l ointment 13:34: Calmosepti Her gomez 00 ne) cetirizine No Notes: Memor ia 06-23 (Same As: l 13:34: Zyrtec) [place] Tessalon No Notes: Memoria Perles 06-23 (Same As: l 13:34: Tessalon [place] 00 Perles) "Do Not Crush" Blistex No Notes: Memoria topical 9-08 Same as: l ointment 13:34: Blistex Juan Jose n 00 Robitussin- No Notes: Chilango jeannette DM 9-08 (dextromet l 13:34: horphan-gu [place] 00 aifenesin 10-100mg/5 ml 10 ml oral SOLN ud) (Same as: Robitussin DM) albuterol No Notes: SEE Me moria 0.083% 9-08 RT l inhalation 13:34: DOCUMENTAT H ermann solution 00 ION (Same as: Proventil) Eucerin No Notes: Memoria topical 9-08 (Same as: l cream 13:34: Eucerin) [place] 00 oxyCODONE No Notes: Memori a immediate 9-08 (Same as: l release 13:34: Roxicodone Herm ondina 00 ) Reglan No Notes: Memoria 9-08 (Same as: l 13:34: Reglan) [place] 00 lidocaine No Notes: Memori a 4% topical 9-08 Patch is l film 13:32: applied to Jim 00 intact skin to [...] Patch is l film 13:32: applied to Jim 00 intact skin to [...] Patch is l film 13:32: applied to [place] 00 intact skin to cover painful area for up to 12 hours in a 24-hour period (12 hours on and 12 hours off). Please indicate the location of applicatio n site. Site 1: Remove old patch before applicatio n of new patch. (Same as Aspercreme Lidocaine Patch) oxyCODONE 5 No Notes: Chilango jeannette mg/5 mL 9- (Same as: l oral 22:27: 'Roxicodon [place] solution 00 e) oxyCODONE No Notes: Memori a immediate - (Same as: l release 22:27: Roxicodone Herm ondina 00 ) oxyCODONE 5 No Notes: Chilango jeannette mg/5 mL 9- (Same as: l oral 22:27: 'Roxicodon [place] solution 00 e) oxyCODONE No Notes: Memori a immediate - (Same as: l release 22:27: Roxicodone Herm ondina 00 ) oxyCODONE 5 No Notes: Chilango jeannette mg/5 mL - (Same as: l oral 22:27: 'Roxicodon Jim solution 00 e) oxyCODONE No Notes: Memori a immediate - (Same as: l release 22:27: Roxicodone Herm ondina 00 ) montelukast No Notes: Chilango jeannette 9-07 (Same l 02:00: as:Singula Jim 00 ir) montelukast No Notes: Chilango jeannette 9-07 (Same l 02:00: as:Singula [place] 00 ir) montelukast No Notes: Chilango jeannette 9-07 (Same l 02:00: as:Singula [place] 00 ir) tamsulosin No Notes: Memor ia 9-06 (Same As: l 23:36: Flomax) Jim 00 "Do Not Crush" tamsulosin No Notes: Memor ia 9-06 (Same As: l 23:36: Flomax) Jim 00 "Do Not Crush" tamsulosin No Notes: Memor ia 9-06 (Same As: l 23:36: Flomax) Jim 00 "Do Not Crush" Lovenox No Notes: Memoria 9-06 (Same as: l 21:00: Lovenox) [place] 00 Lovenox No Notes: Memoria 9- (Same as: l 21:00: Lovenox) [place] 00 Lovenox No Notes: Memoria 9-06 (Same as: l 21:00: Lovenox) Jim gabapentin No Notes: Memor ia 100 mg oral 06-21 (Same as: l capsule 19:00: Neurontin) Herm ondina gabapentin No Notes: Memor ia 100 mg oral 06-21 (Same as: l capsule 19:00: Neurontin) Herm ondina gabapentin No Notes: Memor ia 100 mg oral 06-21 (Same as: l capsule 19:00: Neurontin) Herm ondina Lovenox 2021-0 No 40 mg, Memoria 06-21 Route: l 17:00: SUB-Q, [place] Drug form: INJ, [id number], Dosing Weight 81.818, kg, Start date: 06/21/22 12:00:00 CDT, Duration: 30 day, Stop date: 07/21/22 0:00:00 CDT Lovenox 2021-0 No 40 mg, Memoria 06-21 Route: l 17:00: SUB-Q, Jim 00 Drug form: INJ, [id number], Dosing Weight 81.818, kg, Start date: 06/21/22 12:00:00 CDT, Duration: 30 day, Stop date: 07/21/22 0:00:00 CDT Lovenox 2021-0 No 40 mg, Memoria 06-21 Route: l 17:00: SUB-Q, [place] Drug form: INJ, [id number], Dosing Weight 81.818, kg, Start date: 06/21/22 12:00:00 CDT, Duration: 30 day, Stop date: 07/21/22 0:00:00 CDT ferrous 2021-0 No Notes: Memoria sulfate - Give with l 14:04: food. "Do Not Crush" ferrous 0 No Notes: Memoria sulfate - Give with l 14:04: food. "Do Not Crush" ferrous 0 No Notes: Memoria sulfate - Give with l 14:04: food. "Do Jim 00 Not Crush" finasteride No Notes: Chilango jeannette 06-21 (Same as: l 14:00: Proscar) Jim 00 [...] release crush. finasteride No Notes: Chilango jeannette 06-21 (Same as: l 14:00: Proscar) [place] 00 "Do Not Crush" Women of childbeari [...] release crush. finasteride No Notes: Chilango jeannette 06-21 (Same as: l 14:00: Proscar) Jim 00 [...] patch 06-21 Remove l 12:00: patch 12 [place] 00 hours after applicatio n each day. remove No Notes: Memoria patch - Remove l 12:00: patch 12 Jmi 00 hours after applicatio n each day. remove No Notes: Memoria patch - Remove l 12:00: patch 12 [place] 00 hours after applicatio n each day. lidocaine No Notes: Memori a 4% topical 06-21 Patch is l film 00:00: applied to Jim 00 intact skin to cover painful area for up to 12 hours in a 24-hour period (12 hours on and 12 hours off). Please indicate the location of applicatio n site. Site 1: Remove old patch before applicatio n of new patch. (Same as Aspercreme Lidocaine Patch) lidocaine No Notes: Memori a 4% topical 9-06 Patch is l film 00:00: applied to Jim 00 intact skin to cover painful area for up to 12 hours in a 24-hour period (12 hours on and 12 hours off). Please indicate the location of applicatio n site. Site 1: Remove old patch before applicatio n of new patch. (Same as Aspercreme Lidocaine Patch) lidocaine No Notes: Memori a 4% topical 9-06 Patch is l film 00:00: applied to Jim 00 intact skin to cover painful area for up to 12 hours in a 24-hour period (12 hours on and 12 hours off). Please indicate the location of applicatio n site. Site 1: Remove old patch before applicatio n of new patch. (Same as Aspercreme Lidocaine Patch) oxyCODONE 5 No Notes: Chilango jeannette mg/5 mL - (Same as: l oral 23:11: 'Roxicodon Jim solution 00 e) naloxone No Notes: Memoria - Same as l 23:11: Narcan [place] 00 oxyCODONE 5 No Notes: Chilango jeannette mg/5 mL - (Same as: l oral 23:11: 'Roxicodon [place] solution 00 e) naloxone No Notes: Memoria 9-05 Same as l 23:11: Narcan [place] 00 oxyCODONE 5 No Notes: Chilango jeannette mg/5 mL -05 (Same as: l oral 23:11: 'Roxicodon Jim solution 00 e) naloxone No Notes: Memoria -05 Same as l 23:11: Narcan [place] 00 docusate-se No Notes: Chilango jeannette nna 50 -05 (Same as l mg-8.6 mg 22:00: Senokot-S) [...] Dissolve l 22:00: in 8 oz of [place] 00 water or juice. (Same as: Miralax) docusate-se No Notes: Chilango jeannette nna 50 9-05 (Same as l mg-8.6 mg 22:00: Senokot-S) He rmann oral tablet 00 Equiv. to [place] e. MiraLax No Notes: Memoria 9-05 Dissolve l 22:00: in 8 oz of [place] 00 water or juice. (Same as: Miralax) [...] e 9-05 Tablet l 21:30: should not [place] 00 be chewed or crushed. (Same as: Protonix) Pulmicort No Notes: Memori a Respules 9-05 (Same As: l 17:28: Pulmicort) Pulmicort No Notes: Memori a Respules 9-05 (Same As: l 17:28: Pulmicort) Pulmicort No Notes: Memori a Respules 9-05 (Same As: l 17:28: Pulmicort) metoprolol No Notes: Memor ia tartrate 9-05 (Same as: l 17:23: Lopressor) metoprolol No Notes: Memor ia tartrate 9-05 (Same as: l 17:23: Lopressor) metoprolol No Notes: Memor ia tartrate 9-05 (Same as: l 17:23: Lopressor) Symbicort No 2 Memoria 160/4.5 9-05 inhalation [...] 9-05 not crush l 14:00: or chew. [place] (Same As: Ecotrin) aspirin No Notes: Do Memor ia 9-05 not crush l 14:00: or chew. [place] (Same As: Ecotrin) liothyronin No Notes: Chilango jeannette e 9-05 (Same as: l 11:30: Cytomel) [place] levothyroxi No Notes: Chilango jeannette ne 9-05 Take 1 l 11:30: hour [place] 00 before or 2 hours after meal; Enteral feeds may interefere with the absorption of this medication . (Same as:Levothr oid, Synthroid) liothyronin No Notes: Chilango jeannette e 9-05 (Same as: l 11:30: Cytomel) [place] levothyroxi No Notes: Chilango jeannette ne 9-05 Take 1 l 11:30: hour Jim 00 before or 2 hours after meal; Enteral feeds may interefere with the absorption of this medication . (Same as:Levothr oid, Synthroid) liothyronin No Notes: Chilango jeannette e 9-05 (Same as: l 11:30: Cytomel) Jim levothyroxi No Notes: Chilango jeannette ne 9-05 Take 1 l 11:30: hour [place] 00 before or 2 hours after meal; Enteral feeds may interefere with the absorption of this medication . (Same as:Levothr oid, Synthroid) heparin No Notes: Memoria 5000 9-04 porcine l units/mL 21:00: heparin Juan Jose n injectable 00 solution heparin No 5,000 Memoria 9-04 unit, l 21:00: Route: [place] 00 SUB-Q, Q8H, Dosing Weight 81.818, kg, Start date: 06/19/22 16:00:00 CDT, Duration: 30 day, Stop date: 07/19/22 8:00:00 CDT heparin No Notes: Memoria 5000 9-04 porcine l units/mL 21:00: heparin Juan Jose n injectable 00 solution heparin 2021-0 No 5,000 Memoria 9-04 unit, l 21:00: Route: [place] 00 SUB-Q, Q8H, Dosing Weight 81.818, kg, Start date: 06/19/22 16:00:00 CDT, Duration: 30 day, Stop date: 07/19/22 8:00:00 CDT heparin 2-0 No Notes: Memoria 5000 9-04 porcine l units/mL 21:00: heparin Juan Jose n injectable 00 solution heparin 2021-0 No 5,000 Memoria 9-04 unit, l 21:00: Route: [place] 00 SUB-Q, Q8H, Dosing Weight 81.818, kg, Start date: 06/19/22 16:00:00 CDT, Duration: 30 day, Stop date: 07/19/22 8:00:00 CDT Lactated 2022-0 No 500 mL, Memori a Ringers 9-04 500 ml/hr, l (Bolus) IV 20:16: Infuse Rashmi nn 00 Over: 1 hr, Route: IV, 500, Drug form: INJ, ONCE, Priority: STAT, Dosing Weight 81.818 kg, Start date: 06/19/22 15:16:00 CDT, Stop date: 06/19/22 15:16:00 CDT, 0 Lactated 2022-0 No 500 mL, Memori a Ringers 9-04 500 ml/hr, l (Bolus) IV 20:16: Infuse Rashmi nn 00 Over: 1 hr, Route: IV, 500, Drug form: INJ, ONCE, Priority: STAT, Dosing Weight 81.818 kg, Start date: 06/19/22 15:16:00 CDT, Stop date: 06/19/22 15:16:00 CDT, 0 Lactated 2022-0 No 500 mL, Memori a Ringers 9-04 [...] As: l 14:00: Vitamin B1) folic acid 0 No 1 mg, Memori a 06-19 Route: [...] ia 06-19 (Same As: l 14:00: Vitamin Jim B1) folic acid 0 No 1 mg, Memori a 06-19 Route: PO, l 14:00: Daily, [place] Dosing Weight 81.818, kg, Start date: 06/19/22 9:00:00 CDT, Duration: 5 day, Stop date: 06/23/22 9:00:00 CDT multivitami 0 No 1 tab, Chilango jeannette n 06-19 Route: PO, l 14:00: Dosing Jim 00 Weight 81.818, kg, Daily, Start date: 06/19/22 9:00:00 CDT, Duration: 5 day, Stop date: 06/23/22 9:00:00 CDT thiamine 0 No 100 mg, Memori a 06-19 Route: PO, l 14:00: Daily, Jim 00 Dosing Weight 81.818, kg, Start date: 06/19/22 9:00:00 CDT, Duration: 5 day, Stop date: 06/23/22 9:00:00 CDT Vitamin B1 2021-0 No Notes: Memor ia 06-19 (Same As: l 14:00: Vitamin [place] B1) Lactated 2021-0 No 500 mL, Memori [...] Stop date: 06/18/22 21:43:00 CDT, 0 Lactated 2-0 No 500 mL, Memori a Ringers - Rate: 1000 l Injection 02:43: ml/hr, Juan Jose n IV 00 Infuse over: 30 minutes, Route: IV, Total Volume: 500, Start date: 06/18/22 21:43:00 CDT, Stop date: 06/18/22 21:43:00 CDT, 0 LR IV 500 0 No 500 mL, Memor ia mL 06-19 Rate: 999 l 02:35: ml/hr, [place] Infuse over: 0.5 hr, Route: IV, Dosing Weight 81.818 kg, Total Volume: 500, Start date: 06/18/22 21:35:00 CDT, Duration: 30 day, Stop date: 07/18/22 21:34:00 CDT, BSA: 2.06 m2 LR IV 500 0 No 500 mL, Memor ia mL 06-19 Rate: 999 l 02:35: ml/hr, [place] 00 Infuse over: 0.5 hr, Route: IV, Dosing Weight 81.818 kg, Total Volume: 500, Start date: 06/18/22 21:35:00 CDT, Duration: 30 day, Stop date: 07/18/22 21:34:00 CDT, BSA: 2.06 m2 LR IV 500 No 500 mL, Memor ia mL 06-19 Rate: 999 l 02:35: ml/hr, [place] 00 Infuse over: 0.5 hr, Route: IV, Dosing Weight 81.818 kg, Total Volume: 500, Start date: 06/18/22 21:35:00 CDT, Duration: 30 day, Stop date: 07/18/22 21:34:00 CDT, BSA: 2.06 m2 methylPREDN No Notes: Chilango jeannette ISolone 06-18 (Same l SODium 22:42: as:Solu-ME Rashmi nn SUCCinate 00 DROL, A-Methapre d) Benadryl No Notes: Memoria 06-18 (Same as: l 22:42: Benadryl) methylPREDN No Notes: Chilango jeannette ISolone 06-18 (Same l SODium 22:42: as:Solu-ME Rashmi nn SUCCinate 00 DROL, A-Methapre d) Benadryl No Notes: Memoria 06-18 (Same as: l 22:42: Benadryl) Jim methylPREDN No Notes: Chilango jeannette ISolone 06-18 (Same l SODium 22:42: as:Solu-ME Rashmi nn SUCCinate 00 DROL, A-Methapre d) Benadryl No Notes: Memoria 06-18 (Same as: l 22:42: Benadryl) [place] 00 Lactated No 1,000 mL, Chilango jeannette Ringers [...] Rate: 60 l 1,000 mL 21:47: ml/hr, [place] Infuse over: 16.7 hr, Route: IV, Dosing Weight 81.818 kg, Total Volume: 1,000, Start date: 06/18/22 16:47:00 CDT, Duration: 30 day, Stop date: 07/18/22 16:46:00 CDT, BSA: 2.06 m2, 0 Lactated No 1,000 mL, Chilango jeannette Ringers IV 06-18 Rate: 60 l 1,000 mL 21:47: ml/hr, [place] 00 Infuse over: 16.7 hr, Route: IV, Dosing Weight 81.818 kg, Total Volume: 1,000, Start date: 06/18/22 16:47:00 CDT, Duration: 30 day, Stop date: 07/18/22 16:46:00 CDT, BSA: 2.06 m2, 0 morphine No Notes: Memoria Sulfate 06-18 (Same l 20:04: as:MORPhin [place] 00 e Sulfate) morphine No Notes: Memoria Sulfate 06-18 (Same l 20:04: as:MORPhin Jim 00 e Sulfate) morphine No Notes: Memoria Sulfate 06-18 (Same l 20:04: as:MORPhin Jim 00 e Sulfate) morphine No Notes: Memoria Sulfate - (Same l 20:03: as:MORPhin [place] 00 e Sulfate) morphine No Notes: Memoria Sulfate - (Same l 20:03: as:MORPhin Jim 00 e Sulfate) morphine No Notes: Memoria Sulfate 06-18 (Same l 20:03: as:MORPhin Jim 00 e Sulfate) acetaminoph No Notes: Max Memoria en 06-18 acetaminop l 16:39: hen = [place] 00 4000mg/day (4 gm/day). (Same as: Tylenol) gabapentin No Notes: Memor ia 06-18 (Same as: l 16:39: Neurontin) Jim oxyCODONE No Notes: Memori a immediate 06-18 (Same as: l release 16:39: Roxicodone Herm ondina 00 ) acetaminoph No Notes: Max Memoria en 06-18 acetaminop l 16:39: hen = [place] 00 4000mg/day (4 gm/day). (Same as: Tylenol) gabapentin No Notes: Memor ia 06-18 (Same as: l 16:39: Neurontin) [place] 00 oxyCODONE No Notes: Memori a immediate 06-18 (Same as: l release 16:39: Roxicodone Herm ondina 00 ) acetaminoph No Notes: Max Memoria en 06-18 acetaminop l 16:39: hen = [place] 00 4000mg/day (4 gm/day). (Same as: Tylenol) gabapentin No Notes: Memor ia 06-18 (Same as: l 16:39: Neurontin) [place] 00 oxyCODONE No Notes: Memori a immediate 06-18 (Same as: l release 16:39: Roxicodone Herm ondina 00 ) DuoNeb No Notes: Memoria inhalation 9- (Same as: l solution 15:30: Duoneb) Juan Jose n 00 DuoNeb No Notes: Memoria inhalation 9- (Same as: l solution 15:30: Duoneb) Juan Jose n 00 DuoNeb 2021-0 No Notes: Memoria inhalation 06-18 (Same as: l solution 15:30: Duoneb) Juan Jose n morphine 2021-0 No [...] Stop date: 06/18/22 9:16:00 CDT folic acid 2021-0 No Notes: Memor [...] 06-18 (Same as: l 14:00: Folvite) thiamine 2022-0 No 500 mg, Memori a 06-18 Route: [...] be infused by Radiology Staff ONLY" Omnipaque 2021-0 No 100 mL, Memor ia 350 mg/mL 06-18 Route: l 13:12: IVP, Drug Form: SOLN, Dosing Weight 79.119, kg, ONCALL, STAT, Start date: 06/18/22 8:12:00 CDT, Duration: 1 doses or times, Dose = 2.2ml/kg, Max dose = 150ml -- "To be infused by Radiology Staff ONLY" Omnipaque 2021-0 No 100 mL, Memor ia 350 mg/mL 06-18 Route: l 13:12: IVP, Drug Form: SOLN, Dosing Weight 79.119, kg, ONCALL, STAT, Start date: 06/18/22 8:12:00 CDT, Duration: 1 doses or times, Dose = 2.2ml/kg, Max dose = 150ml -- "To be infused by Radiology Staff ONLY" thiamine + No Notes: Memor ia Sodium -03 (Same As: l Chloride 11:14: Vitamin Juan Jose n 0.9% IV 49 00 B1) mL thiamine + 2021-0 No Notes: Memor ia Sodium 9-03 (Same As: l Chloride 11:14: Vitamin Juan Jose n 0.9% IV 49 00 B1) mL thiamine + 0 No Notes: Memor ia Sodium 9-03 (Same As: l Chloride 11:14: Vitamin Juan Jose n 0.9% IV 49 00 B1) mL methylPREDN No Notes: Chilango jeannette ISolone - (Same l SODium 11:00: as:Solu-ME Rashmi nn SUCCinate 00 DROL, A-Methapre d) diphenhydrA No Notes: Chilango jeannette MINE 06-18 (Same as: l 11:00: Benadryl) [place] methylPREDN No Notes: Chilango jeannette ISolone 06-18 (Same l SODium 11:00: as:Solu-ME Rashmi nn SUCCinate 00 DROL, A-Methapre d) diphenhydrA No Notes: Chilango jeannette MINE 06-18 (Same as: l 11:00: Benadryl) Jim methylPREDN No Notes: Chilango jeannette ISolone 06-18 (Same l SODium 11:00: as:Solu-ME Rashmi nn SUCCinate 00 DROL, A-Methapre d) diphenhydrA No Notes: Chilango jeannette MINE 06-18 (Same as: l 11:00: Benadryl) [place] Benadryl No Notes: Memoria 9- (Same as: l 10:42: Benadryl) Jim Benadryl No Notes: Memoria 9- (Same as: l 10:42: Benadryl) [place] Benadryl No Notes: Memoria 9- (Same as: l 10:42: Benadryl) [place] Isolyte S No Notes: Memori a PH-7.4 [...] (Same as: l (Bolus) IV 09:34: Isolyte Stevie Gabriel rmann 00 PH7.4, Normosol-R PH 7.4, Plasma-Lyt e A ) Isolyte S No Notes: Memori a PH-7.4 06-18 (Same as: l (Bolus) IV 09:34: Isolyte Stevie Gabriel rmann 00 PH7.4, Normosol-R PH 7.4, Plasma-Lyt e A ) Isolyte S No Notes: Memori a PH-7.4 06-18 (Same as: l (Bolus) IV 09:34: Isolyte Stevie Gabriel rmann 00 PH7.4, Normosol-R PH 7.4, Plasma-Lyt e A ) DuoNeb No Notes: Memoria inhalation 06-18 (Same as: l solution 08:36: Duoneb) Juan Jose n 00 DuoNeb No Notes: Memoria inhalation - (Same as: l solution 08:36: Duoneb) Juan Jose n DuoNeb No Notes: Memoria inhalation - (Same as: l solution 08:36: Duoneb) Juan Jose n morphine 2021-0 No 4 mg, Memoria Sulfate 06-18 Route: l 08:33: IVP, ONCE, Dosing Weight 79.119, kg, Priority: STAT, Start date: 06/18/22 3:33:00 CDT, Stop date: 06/18/22 3:33:00 CDT Zofran 2021-0 No 4 mg, Memoria 06-18 Route: l 08:33: IVP, Drug form: INJ, ONCE, Dosing Weight 79.119, kg, Priority: STAT, Start date: 06/18/22 3:33:00 CDT, Stop date: 06/18/22 3:33:00 CDT morphine 2021-0 No 4 mg, Memoria Sulfate 06-18 Route: l 08:33: IVP, ONCE, Dosing Weight 79.119, kg, Priority: STAT, Start date: 06/18/22 3:33:00 CDT, Stop date: 06/18/22 3:33:00 CDT Zofran 2022-0 No 4 mg, Memoria 06-18 Route: l 08:33: IVP, Drug Jim 00 form: INJ, ONCE, Dosing Weight 79.119, kg, Priority: STAT, Start date: 06/18/22 3:33:00 CDT, Stop date: 06/18/22 3:33:00 CDT morphine 2022-0 No 4 mg, Memoria Sulfate 06-18 Route: l 08:33: IVP, ONCE, Dosing Weight 79.119, kg, Priority: STAT, Start date: 06/18/22 3:33:00 CDT, Stop date: 06/18/22 3:33:00 CDT Zofran 2022-0 No 4 mg, Memoria 06-18 Route: l 08:33: IVP, Drug form: INJ, ONCE, Dosing Weight 79.119, kg, Priority: STAT, Start date: 06/18/22 3:33:00 CDT, Stop date: 06/18/22 3:33:00 CDT lactobacill No Notes: Chilango jeannette us 2-02 Same as l rhamnosus 15:00: Serena diehl GG budesonide- No Notes: Chilango jeannette formoterol 2-02 (Same as: l 160 mcg-4.5 15:00: Symbicort) Jim mcg/inh 00 WASTE: inhalation Aerosol - aerosol Return to with Pharmacy adapter Streptococc No Notes: Chilango jeannette us 2-02 Shake well l pneumoniae 15:00: prior to Her gomez serotype 1 00 use (Same capsular as: antigen Prevnar diphtheria 13) [id number] protein conjugate vaccine / Streptococc us pneumoniae serotype 14 capsular antigen diphtheria [id number] protein conjugate vaccine / Streptococc us pneumoniae serotype 18C capsular antigen d lactobacill No Notes: Chilango jeannette us 2-02 Same as l rhamnosus 15:00: Serena greenann GG 00 budesonide- No Notes: Chilango jeannette formoterol 2-02 (Same as: l 160 mcg-4.5 15:00: Symbicort) [place] mcg/inh 00 WASTE: inhalation Aerosol - aerosol Return to with Pharmacy adapter Streptococc No Notes: Chilango jeannette us 2-02 Shake well l pneumoniae 15:00: prior to Her gomez serotype 1 00 use (Same capsular as: antigen Prevnar diphtheria 13) [id number] protein conjugate vaccine / Streptococc us pneumoniae serotype 14 capsular antigen diphtheria [id number] protein conjugate vaccine / Streptococc us pneumoniae serotype 18C capsular antigen d lactobacill No Notes: Chilango jeannette us 2-02 Same as l rhamnosus 15:00: Culturelle rmann GG 00 budesonide- No Notes: Chilango jeannette formoterol 2-02 (Same as: l 160 mcg-4.5 15:00: Symbicort) Jim mcg/inh 00 WASTE: inhalation Aerosol - aerosol Return to with Pharmacy adapter Streptococc No Notes: Chilango jeannette us 2-02 Shake well l pneumoniae 15:00: prior to Her gomez serotype 1 00 use (Same capsular as: antigen Prevnar diphtheria 13) [id number] protein conjugate vaccine / Streptococc us pneumoniae serotype 14 capsular antigen diphtheria [id number] protein conjugate vaccine / Streptococc us pneumoniae serotype 18C capsular antigen d Levothroid No Notes: Memor ia 2-02 Take 1 l 12:30: hour [place] 00 before or 2 hours after meal; Enteral feeds may interefere with the absorption of this medication . (Same as:Levothr oid, Synthroid) Cytomel No Notes: Memoria 2-02 (Same as: l 12:30: Cytomel) [place] Levothroid No Notes: Memor ia 2-02 Take 1 l 12:30: hour Jim 00 before or 2 hours after meal; Enteral feeds may interefere with the absorption of this medication . (Same as:Levothr oid, Synthroid) Cytomel No Notes: Memoria 2-02 (Same as: l 12:30: Cytomel) [place] Levothroid No Notes: Memor ia 2-02 Take 1 l 12:30: hour [place] 00 before or 2 hours after meal; Enteral feeds may interefere with the absorption of this medication . (Same as:Levothr oid, Synthroid) Cytomel 2018-0 No Notes: Memoria 2-02 (Same as: l 12:30: Cytomel) Jim 00 aspirin 81 2017-0 No Notes: Do Me moria mg tablet, 2-02 not crush l enteric 03:00: or chew. Juan Jose n coated 00 (Same As: Ecotrin) Singulair 0 No Notes: Memori a 2-02 (Same l 03:00: as:Singula [place] 00 ir) aspirin 81 2017-0 No Notes: Do Me moria mg tablet, 2-02 not crush l enteric 03:00: or chew. Juan Jose n coated 00 (Same As: Ecotrin) Singulair No Notes: Memori a 2-02 (Same l 03:00: as:Singula Jim 00 ir) aspirin 81 0 No Notes: Do Me moria mg tablet, 2-02 not crush l enteric 03:00: or chew. Juan Jose n coated 00 (Same As: Ecotrin) Singulair 0 No Notes: Memori a 2-02 (Same l 03:00: as:Singula [place] 00 ir) Flomax 0 No Notes: Memoria 2-02 (Same As: l 00:50: Flomax) [place] 00 "Do Not Crush" metoprolol [id number] No Notes: Memor ia 2-02 (Same as: l 00:50: Toprol XL) Jim 00 Do Not Crush Proscar 2018-0 No Notes: Memoria 2-02 (Same as: l 00:50: Proscar) Jim 00 "Do Not Crush" Women of childbeari ng age should not touch or handle broken tablets Flomax 0 No Notes: Memoria 2-02 (Same As: l 00:50: Flomax) [place] 00 "Do Not Crush" metoprolol 2018-0 No Notes: Memor ia 2-02 (Same as: l 00:50: Toprol XL) Jim 00 Do Not Crush Proscar 2018-0 No Notes: Memoria 2-02 (Same as: l 00:50: Proscar) Jim 00 "Do Not Crush" Women of childbeari ng age should not touch or handle broken tablets Flomax 20180 No Notes: Memoria 2-02 (Same As: l 00:50: Flomax) Jim 00 "Do Not Crush" metoprolol No Notes: Memor ia 2- (Same as: l 00:50: Toprol XL) Do Not Crush Proscar No Notes: Memoria 2- (Same as: l 00:50: Proscar) "Do Not Crush" Women of childbeari ng age should not touch or handle broken tablets cetirizine No Notes: Memor ia 2- (Same As: l 23:53: Zyrtec) cetirizine No Notes: Memor ia 2- (Same As: l 23:53: Zyrtec) cetirizine No Notes: Memor ia 2- (Same As: l 23:53: Zyrtec) metoprolol Yes 25 mg = 1 Me [...] / 11-16 (Same as: l Hydrocodone 20:37: Westhoff Rashmi nn Bitartrate 00 325/5) Do 5 MG Oral not exceed Tablet 4gm/day of [Westhoff acetaminop 5/325] hen. Acetaminoph No Notes: Chil[place] jeannette en 325 MG / 11-16 (Same as: l Hydrocodone 20:37: [place] Rashmi nn Bitartrate 00 325/5) Do 5 MG Oral not exceed Tablet 4gm/day of [Westhoff acetaminop 5/325] hen. Acetaminoph No Notes: [place] jeannette en 325 MG / 11-16 (Same as: l Hydrocodone 20:37: [place] Rashmi nn Bitartrate 00 325/5) Do 5 MG Oral not exceed Tablet 4gm/day of [Westhoff acetaminop 5/325] hen. Acetaminoph No Notes: [place] jeannette en 325 MG / 11-16 (Same as: l Hydrocodone 20:36: [place]hoff Rashmi nn Bitartrate 00 325/5) Do 5 MG Oral not exceed Tablet 4gm/day of [Westhoff acetaminop 5/325] hen. Acetaminoph No Notes: [place] jeannette en 325 MG / 11-16 (Same as: l Hydrocodone 20:36: [place]hoff Rashmi nn Bitartrate 00 325/5) Do 5 MG Oral not exceed Tablet 4gm/day of [Westhoff acetaminop 5/325] hen. Acetaminoph No Notes: [place] jeannette en 325 MG / 11-16 (Same as: l Hydrocodone 20:36: [place] Rashmi nn Bitartrate 00 325/5) Do 5 MG Oral not exceed Tablet 4gm/day of [Westhoff acetaminop 5/325] hen. ketOROLAC 0 No 60 mg, Memori a 30 mg/mL 11-16 Route: IM, l injectable 20:01: Drug form: H ermann solution 00 INJ, ONCE, Dosing Weight 79.119, kg, Start date: 11/16/17 14:01:00 [employer], Stop date: 11/16/17 14:01:00 [employer] ketOROLAC 2018-0 No 60 mg, Memori a 30 mg/mL 11-16 Route: IM, l injectable 20:01: Drug form: H ermann solution 00 INJ, ONCE, Dosing Weight 79.119, kg, Start date: 11/16/17 14:01:00 [employer], Stop date: 11/16/17 14:01:00 [employer] ketOROLAC 2018-0 No 60 mg, Memori a 30 mg/mL 11-16 Route: IM, l injectable 20:01: Drug form: H ermann solution 00 INJ, ONCE, Dosing Weight 79.119, kg, Start date: 11/16/17 14:01:00 [employer], Stop date: 11/16/17 14:01:00 [employer] Demerol HCl No 25 mg, [place] jeannette 2-01 Route: l 19:45: IVP, ONCE, Dosing Weight 79.119, kg, PRN Pain Score 7-10, Start date: 11/16/17 13:45:00 [employer] Demerol HCl 2018-0 No 25 mg, [place] jeannette 2-01 Route: l 19:45: IVP, ONCE, Dosing Weight 79.119, kg, PRN Pain Score 7-10, Start date: 11/16/17 13:45:00 [employer] Demerol HCl 2018-0 No 25 mg, [place] jeannette 2- Route: l 19:45: IVP, ONCE, Dosing Weight 79.119, kg, PRN Pain Score 7-10, Start date: 11/16/17 13:45:00 [employer] Fentanyl 2017-0 No Notes: Memoria 2-01 (Same as: l 19:03: Sublimaze) Jim Preservati ve free. Fentanyl 2017-0 No Notes: Memoria 2-01 (Same as: l 19:03: Sublimaze) Jim Preservati ve free. Fentanyl 2018-0 No Notes: Memoria 2-01 (Same as: l 19:03: Sublimaze) Jim Preservati ve free. Ondansetron 2018-0 No 4 mg, Memor ia 2-01 Route: l 19:01: IVP, ONCE, Dosing Weight 79.119, kg, PRN Nausea & Vomiting, Start date: 11/16/17 13:01:00 [employer] Naloxone 2018-0 No 0.4 mg, Memori a 2-01 Route: l 19:01: IVP, 00 Q2MIN, Dosing Weight 79.119, kg, PRN Narcotic Reversal, Start date: 11/16/17 13:01:00 [employer], Duration: 8 doses or times, Stop date: Limited # of times Flumazenil 2017-0 No 0.2 mg, [place] jeannette 2-01 Route: l 19:01: IVP, PRN, Dosing Weight 79.119, kg, PRN Benzodiaze pine Reversal, Initial dose, Start date: 11/16/17 13:01:00 [employer], Duration: 30 day, Stop date: 12/16/17 13:00:00 [employer] Fentanyl 2017-0 No 25 Memoria 2-01 microgram, l 19:01: Route: Jim 00 IVP, Q5Min, Dosing Weight 79.119, kg, PRN Pain Score 4-6, Priority: Routine, Start date: 11/16/17 13:01:00 [employer], Duration: 4 doses or times, Stop date: Limited # of times Labetalol 2018-0 No 10 mg, Memori a 2-01 Route: l 19:01: IVP, Jim 00 Q5Min, Dosing Weight 79.119, kg, PRN Elevated BP, Start date: 11/16/17 13:01:00 [employer], Duration: 5 doses or times, Stop date: Limited # of times Ondansetron 2018-0 No 4 mg, Memor ia 2- Route: l 19:01: IVP, ONCE, [place] 00 Dosing Weight 79.119, kg, PRN Nausea & Vomiting, Start date: 11/16/17 13:01:00 [employer] Naloxone 2018-0 No 0.4 mg, Memori a 2- Route: l 19:01: IVP, [place] 00 Q2MIN, Dosing Weight 79.119, kg, PRN Narcotic Reversal, Start date: 11/16/17 13:01:00 [employer], Duration: 8 doses or times, Stop date: Limited # of times Flumazenil 2018-0 No 0.2 mg, [place] jeannette 2- Route: l 19:01: IVP, PRN, [place] 00 Dosing Weight 79.119, kg, PRN Benzodiaze pine Reversal, Initial dose, Start date: 11/16/17 13:01:00 [employer], Duration: 30 day, Stop date: 12/16/17 13:00:00 [employer] Fentanyl 2018-0 No 25 Memoria 2-01 microgram, l 19:01: Route: Jim 00 IVP, Q5Min, Dosing Weight 79.119, kg, PRN Pain Score 4-6, Priority: Routine, Start date: 11/16/17 13:01:00 [employer], Duration: 4 doses or times, Stop date: Limited # of times Labetalol 2018-0 No 10 mg, Memori a 2-01 Route: l 19:01: IVP, Jim 00 Q5Min, Dosing Weight 79.119, kg, PRN Elevated BP, Start date: 11/16/17 13:01:00 [employer], Duration: 5 doses or times, Stop date: Limited # of times Ondansetron 2018-0 No 4 mg, Memor ia 2- Route: l 19:01: IVP, ONCE, [place] 00 Dosing Weight 79.119, kg, PRN Nausea & Vomiting, Start date: 11/16/17 13:01:00 [employer] Naloxone 2018-0 No 0.4 mg, Memori a 2- Route: l 19:01: IVP, [place] 00 Q2MIN, Dosing Weight 79.119, kg, PRN Narcotic Reversal, Start date: 11/16/17 13:01:00 [employer], Duration: 8 doses or times, Stop date: Limited # of times Flumazenil 2018-0 No 0.2 mg, [place] jeannette 2- Route: l 19:01: IVP, PRN, [place] 00 Dosing Weight 79.119, kg, PRN Benzodiaze pine Reversal, Initial dose, Start date: 11/16/17 13:01:00 [employer], Duration: 30 day, Stop date: 12/16/17 13:00:00 [employer] Fentanyl 2018-0 No 25 Memoria 2-01 microgram, l 19:01: Route: [place] 00 IVP, Q5Min, Dosing Weight 79.119, kg, PRN Pain Score 4-6, Priority: Routine, Start date: 11/16/17 13:01:00 [employer], Duration: 4 doses or times, Stop date: Limited # of times Labetalol 2018-0 No 10 mg, Memori a 2- Route: l 19:01: IVP, Jim 00 Q5Min, Dosing Weight 79.119, kg, PRN Elevated BP, Start date: 11/16/17 13:01:00 [employer], Duration: 5 doses or times, Stop date: Limited # of times Oxycodone 2018-0 No 10 mg, Memori a Hydrochlori 2-01 Route: PO, l de 5 MG 18:33: Drug form: Herm ondina Oral Tablet 00 TAB, ONCE, Dosing Weight 79.119, kg, PRN Pain Score 7-10, Start date: 11/16/17 12:33:00 [employer] Oxycodone 2018-0 No 10 mg, Memori a Hydrochlori 2-01 Route: PO, l de 5 MG 18:33: Drug form: Herm ondina Oral Tablet 00 TAB, ONCE, Dosing Weight 79.119, kg, PRN Pain Score 7-10, Start date: 11/16/17 12:33:00 [employer] Oxycodone 2018-0 No 10 mg, Memori a Hydrochlori 2- Route: PO, l de 5 MG 18:33: Drug form: Herm ondina Oral Tablet 00 TAB, ONCE, Dosing Weight 79.119, kg, PRN Pain Score 7-10, Start date: 11/16/17 12:33:00 [employer] Oxycodone 2017-0 No Notes: Memori a Hydrochlori 2- (Same as: l de 5 MG 18:31: Roxicodone Herm ondina Oral Tablet ) Oxycodone 0 No Notes: Memori a Hydrochlori 2-01 (Same as: l de 5 MG 18:31: Roxicodone Herm ondina Oral Tablet ) Oxycodone 2017-0 No Notes: Memori a Hydrochlori 2-01 (Same as: l de 5 MG 18:31: Roxicodone Herm ondina Oral Tablet ) ondansetron No Route: IV, Memoria (ANES) 2- Drug form: l 17:42: INJ, ONCE, Stop date: 11/16/17 11:42:00 [employer] fentaNYL 2017-0 No Route: IV, Mem oria (ANES) 2 Drug form: l 17:42: INJ, ONCE, Stop date: 11/16/17 11:42:00 [employer] lidocaine 2017-0 No Route: IV, Me moria (ANES) 2- Drug form: l 17:42: INJ, ONCE, Stop date: 11/16/17 11:42:00 [employer] ondansetron 2017-0 No Route: IV, Memoria (ANES) 2- Drug form: l 17:42: INJ, ONCE, Stop date: 11/16/17 11:42:00 [employer] fentaNYL 2018-0 No Route: IV, Mem oria (ANES) 2 Drug form: l 17:42: INJ, ONCE, Stop date: 11/16/17 11:42:00 [employer] lidocaine 2017-0 No Route: IV, Me moria (ANES) 2- Drug form: l 17:42: INJ, ONCE, Stop date: 11/16/17 11:42:00 [employer] ondansetron 2017-0 No Route: IV, Memoria (ANES) 11-16 Drug form: l 17:42: INJ, ONCE, Stop date: 11/16/17 11:42:00 [employer] fentaNYL 2018-0 No Route: IV, Mem oria (ANES) 11-16 Drug form: l 17:42: INJ, ONCE, Stop date: 11/16/17 11:42:00 [employer] lidocaine 2018-0 No Route: IV, Me moria (ANES) 11-16 Drug form: l 17:42: INJ, ONCE, Stop date: 11/16/17 11:42:00 [employer] propofol 2018-0 No Route: IV, Mem oria (ANES) 10 11-16 Drug form: l mg 17:01: INJ, Start date: 11/16/17 11:01:00 [employer], Stop date: 11/16/17 12:01:00 [employer] propofol 2018-0 No Route: IV, Mem oria (ANES) 10 11-16 Drug form: l mg 17:01: INJ, Start date: 11/16/17 11:01:00 [employer], Stop date: 11/16/17 12:01:00 [employer] propofol 2018-0 No Route: IV, Mem oria (ANES) 10 11-16 Drug form: l mg 17:01: INJ, Start date: 11/16/17 11:01:00 [employer], Stop date: 11/16/17 12:01:00 [employer] ceFAZolin 2018-0 No Route: IV, Me moria (ANES) 1000 11-16 Drug form: l mg 17:00: INJ, Start date: 11/16/17 11:00:00 [employer], Stop date: 11/16/17 12:00:00 [employer] ceFAZolin 2018-0 No Route: IV, Me moria (ANES) 1000 11-16 Drug form: l mg 17:00: INJ, Start date: 11/16/17 11:00:00 [employer], Stop date: 11/16/17 12:00:00 [employer] ceFAZolin 2018-0 No Route: IV, Me moria (ANES) 1000 2 Drug form: l mg 17:00: INJ, Start Jim date: 11/16/17 11:00:00 [employer], Stop date: 11/16/17 12:00:00 [employer] Lactated 2017-0 No Route: IV, Mem oria Ringers 2-01 Total l Injection 16:52: Volume: Rashmi nn IV (ANES) 00 1,000, 1000 mL Start date: 11/16/17 10:52:00 [employer], Stop date: 11/16/17 11:52:00 [employer] Lactated 0 No Route: IV, Mem oria Ringers 2-01 Total l Injection 16:52: Volume: Rashmi nn IV (ANES) 00 1,000, 1000 mL Start date: 11/16/17 10:52:00 [employer], Stop date: 11/16/17 11:52:00 [employer] Lactated 2017-0 No Route: IV, Mem oria Ringers 2-01 Total l Injection 16:52: Volume: Rashmi nn IV (ANES) 00 1,000, 1000 mL Start date: 11/16/17 10:52:00 [employer], Stop date: 11/16/17 11:52:00 [employer] Calcium 2018-0 No 1,000 mL, Memor ia Chloride 11-16 Rate: 25 l 0.0014 15:38: ml/hr, [place] MEQ/ML / 00 Infuse Potassium over: 40 Chloride hr, Route: 0.004 IV, Dosing MEQ/ML / Weight Sodium 79.119 kg, Chloride Total 0.103 Volume: MEQ/ML / 1,000, Sodium Start Lactate date: 0.028 11/16/17 MEQ/ML 9:38:00 Injectable STEEL P[employer]ER, Solution Duration: 30 day, Stop date: 12/16/17 9:37:00 [employer], 1.99, m2 Calcium 2018-0 No 1,000 mL, Memor ia Chloride 2 Rate: 25 l 0.0014 15:38: ml/hr, [place] MEQ/ML / 00 Infuse Potassium over: 40 Chloride hr, Route: 0.004 IV, Dosing MEQ/ML / Weight Sodium 79.119 kg, Chloride Total 0.103 Volume: MEQ/ML / 1,000, Sodium Start Lactate date: 0.028 11/16/17 MEQ/ML 9:38:00 Injectable STEEL PICK[employer]ER, Solution Duration: 30 day, Stop date: 12/16/17 9:37:00 [employer], 1.99, m2 Calcium 2018-0 No 1,000 mL, Memor ia Chloride 2-01 Rate: 25 l 0.0014 15:38: ml/hr, [place] MEQ/ML / 00 Infuse Potassium over: 40 Chloride hr, Route: 0.004 IV, Dosing MEQ/ML / Weight Sodium 79.119 kg, Chloride Total 0.103 Volume: MEQ/ML / 1,000, Sodium Start Lactate date: 0.028 11/16/17 MEQ/ML 9:38:00 Injectable STE[employer]ER, Solution Duration: 30 day, Stop date: 12/16/17 9:37:00 [employer], 1.99, m2 Symbicort 2018-0 Yes 2 puff, Memor ia 160/4.5 31 INHALER, l inhalation 17:31: BID, # 1 Her gomez aerosol 00 ea, 3 with Refill(s) adapter montelukast 2017-0 Yes 10 mg = 1 M emoria 10 mg oral 11-15 tab, PO, l tablet 17:31: Bedtime, # Rashmi nn 00 30 tab, 0 Refill(s) Leisa 2017-0 Yes PO, 0 Memoria 11-15 Refill(s) l 17:31: [place] 00 Symbicort 2018-0 Yes 2 puff, Memor ia 160/4.5 31 INHALER, l inhalation 17:31: BID, # 1 Her gomez aerosol 00 ea, 3 with Refill(s) adapter montelukast 2018-0 Yes 10 mg = 1 M emoria 10 mg oral 31 tab, PO, l tablet 17:31: Bedtime, # Rashmi nn 00 30 tab, 0 Refill(s) Leisa 2018-0 Yes PO, 0 Memoria 11-15 Refill(s) l 17:31: Jim montelukast 2018-0 Yes 10 mg = 1 M emoria 10 mg oral -31 tab, PO, l tablet 17:31: Bedtime, # Rashmi nn 00 30 tab, 0 Refill(s) Leisa 2018-0 Yes PO, 0 Memoria 11-15 Refill(s) l 17:31: [place] Symbicort Yes 2 puff, Memor ia 160/4.5 11-15 INHALER, l inhalation 17:31: BID, # 1 Her gomez aerosol 00 ea, 3 with Refill(s) adapter levothyroxi Yes 100 Memori a ne 100 mcg 1-31 microgram l (0.1 mg) 17:30: = 1 tab, Rashmi nn oral tablet 00 PO, Daily, # 30 tab, 0 Refill(s) levothyroxi Yes 100 Memori a ne 100 mcg 1-31 microgram l (0.1 mg) 17:30: = 1 tab, Rashmi nn oral tablet 00 PO, Daily, # 30 tab, 0 Refill(s) levothyroxi Yes 100 Memori a ne 100 mcg 1-31 microgram l (0.1 mg) 17:30: = 1 tab, Rashmi nn oral tablet 00 PO, Daily, # 30 tab, 0 Refill(s) Metoprolol 2015-10 No Metoprolol M emoria succinate 0-08 succinate l ER 14:00: ER, 25 mg, Route: PO, Daily, 07/23/16 9:00:00 CDT, Duration: 30 day, Stop date: 08/21/16 9:00:00 [employer] Triiodothyr 2015-10 No Notes: Chil[place] jeannette onine 0-08 (Same as: l 14:00: Cytomel) metoprolol 2015-10 No Notes: Memor ia extended 0-08 (Same as: l release 14:00: Toprol XL) Do Not Crush Finasteride 2015-10 No 5 mg, 1 Mem oria 0-08 tab, l 14:00: Route: PO, Drug form: TAB, Daily, Dosing Weight 81.2, kg, Start date: 07/23/16 9:00:00 CDT, Duration: 30 day, Stop date: 08/21/16 9:00:00 [employer] Vitamin B 2015-10 No Notes: Memori a 12 0-08 (Same As: l 14:00: Vitamin [place] 00 B-12) Vitamin D3 2015-10 No Notes: Memor ia 1000 intl 0-08 Same as : l units oral 14:00: Vitamin D3 H ermann tablet 00 Aspirin 2015-10 No 81 mg, 1 Memori a Enteric 0-08 tab, l Coated 14:00: Route: PO, Rashmi nn Drug form: ECTAB, Daily, Dosing Weight 81.2, kg, Start date: 07/23/16 9:00:00 CDT, Duration: 30 day, Stop date: 08/21/16 9:00:00 [employer] Docusate 2015-10 No Notes: Memoria 0-08 (Same as: l 14:00: Colace) Jim (Do Not Crush) Metoprolol 2015-10 No Metoprolol M emoria succinate 0-08 succinate l ER 14:00: ER, 25 mg, Jim 00 Route: PO, Daily, 07/23/16 9:00:00 CDT, Duration: 30 day, Stop date: 08/21/16 9:00:00 [employer] Triiodothyr 2015-10 No Notes: [place] jeannette onine 0-08 (Same as: l 14:00: Cytomel) metoprolol 2015-10 No Notes: Memor ia extended 0-08 (Same as: l release 14:00: Toprol XL) Herm ondina Do Not Crush Finasteride 2015-10 No 5 mg, 1 Mem oria 0-08 tab, l 14:00: Route: PO, Jim Drug form: TAB, Daily, Dosing Weight 81.2, kg, Start date: 07/23/16 9:00:00 CDT, Duration: 30 day, Stop date: 08/21/16 9:00:00 [employer] Vitamin B 2015-10 No Notes: Memori a 12 0-08 (Same As: l 14:00: Vitamin [place] B-12) Vitamin D3 2015-10 No Notes: Memor ia 1000 intl 0-08 Same as : l units oral 14:00: Vitamin D3 H ermann tablet Aspirin 2015-10 No 81 mg, 1 Memori a Enteric 0-08 tab, l Coated 14:00: Route: PO, Rashmi Drug form: ECTAB, Daily, Dosing Weight 81.2, kg, Start date: 07/23/16 9:00:00 CDT, Duration: 30 day, Stop date: 08/21/16 9:00:00 [employer] Docusate 2015-10 No Notes: Memoria 0-08 (Same as: l 14:00: Colace) Jim (Do Not Crush) Metoprolol 2015-10 No Metoprolol M emoria succinate 0-08 succinate l ER 14:00: ER, 25 mg, Jim Route: PO, Daily, 07/23/16 9:00:00 CDT, Duration: 30 day, Stop date: 08/21/16 9:00:00 [employer] Triiodothyr 2015-10 No Notes: [place] jeannette onine 0-08 (Same as: l 14:00: Cytomel) metoprolol 2015-10 No Notes: Memor ia extended 0-08 (Same as: l release 14:00: Toprol XL) Do Not Crush Finasteride 2015-10 No 5 mg, 1 Mem oria 0-08 tab, l 14:00: Route: PO, Jmi 00 Drug form: TAB, Daily, Dosing Weight 81.2, kg, Start date: 07/23/16 9:00:00 CDT, Duration: 30 day, Stop date: 08/21/16 9:00:00 [employer] Vitamin B 2015-10 No Notes: Memori a 12 0-08 (Same As: l 14:00: Vitamin [place] 00 B-12) Vitamin D3 2015-10 No Notes: Memor ia 1000 intl 0-08 Same as : l units oral 14:00: Vitamin D3 H ermann tablet 00 Aspirin 2015-10 No 81 mg, 1 Memori a Enteric 0-08 tab, l Coated 14:00: Route: PO, Rashmi nn Drug form: ECTAB, Daily, Dosing Weight 81.2, kg, Start date: 07/23/16 9:00:00 CDT, Duration: 30 day, Stop date: 08/21/16 9:00:00 [employer] Docusate 2015-10 No Notes: Memoria 0-08 (Same as: l 14:00: Colace) Jim (Do Not Crush) acetaminoph 2015-10 Yes 100.4 [...] 0 Juan Jose n 00 Refill(s) baclofen 2015-10 Yes 10 mg = 1 M emoria mg oral 0-08 tab, PO, l tablet 13:04: Q8H-05, [place] 00 PRN as needed for muscle spasm, [...] 0 Juan Jose n 00 Refill(s) baclofen 2015-10 Yes 10 mg = 1 M emoria mg oral 0-08 tab, PO, l tablet 13:04: Q8H-05, [place] 00 PRN as needed for muscle spasm, # 42 tab, 0 Refill(s) Acetaminoph 2015-10 Yes 1 tab, PO, Memoria en 300 MG / 0-08 Q6H, PRN l Codeine 13:04: pain, X 7 Rashmi nn Phosphate 00 day, # 28 30 MG Oral tab, 0 Tablet Refill(s) Flomax 2015-10 No 0.4 mg, 1 Memori a 0-08 cap, l 02:00: Route: PO, [place] 00 Drug form: CAP, Bedtime, Dosing Weight 81.2, [...] ia 0-07 tab, l 22:32: Route: PO, [place] 00 Drug form: TAB, Q4H, Dosing Weight 81.2, kg, PRN Pain Score 1-3, Start date: 07/22/16 17:32:00 CDT, Duration: 30 day, Stop date: 08/21/16 17:31:00 [employer] Tramadol 2015-10 No 50 mg, 1 Memor ia 0-07 tab, l 22:32: Route: PO, Drug form: TAB, Q4H, Dosing Weight 81.2, kg, PRN Pain Score 1-3, Start date: 07/22/16 17:32:00 CDT, Duration: 30 day, Stop date: 08/21/16 17:31:00 [employer] Tramadol 2015-10 No 50 mg, 1 Memor ia 0-07 tab, l 22:32: Route: PO, Jim Drug form: TAB, Q4H, Dosing Weight 81.2, kg, PRN Pain Score 1-3, Start date: 07/22/16 17:32:00 CDT, Duration: 30 day, Stop date: 08/21/16 17:31:00 [employer] Acetaminoph 2015-10 No Notes: Chilango jeannette en 325 MG / 0-07 (Same as: l Hydrocodone 22:23: [place] Rashmi nn Bitartrate 00 325/5) Do 5 MG Oral not exceed Tablet 4gm/day of acetaminop hen. Acetaminoph 2015-10 No Notes: Do M emoria en 0-07 not exceed l 22:23: 4 gm/day. Jim 00 (Same as: Tylenol) Ondansetron 2015-10 No Notes: Chil[place] jeannette 0-07 (Same as: l 22:23: Zofran) [place] 00 MEDICATION WASTE Product Size: 4 mg Product Wasted: ___ mg Morphine 2015-10 No Notes: Memoria 0-07 (Same l 22:23: as:MORPhin Jim 00 e Sulfate) Acetaminoph 2015-10 No Notes: [place] jeannette en 325 MG / 0-07 (Same as: l Hydrocodone 22:23: [place] Rashmi nn Bitartrate 00 325/5) Do 5 MG Oral not exceed Tablet 4gm/day of acetaminop hen. Acetaminoph 2015-10 No Notes: Do M emoria en 0-07 not exceed l 22:23: 4 gm/day. Jim 00 (Same as: Tylenol) Ondansetron 2015-10 No Notes: Ch[place] jeannette 0-07 (Same as: l 22:23: Zofran) Jim 00 MEDICATION WASTE Product Size: 4 mg Product Wasted: ___ mg Morphine 2015-10 No Notes: Memoria 0-07 (Same l 22:23: as:MORPhin [place] 00 e Sulfate) Acetaminoph 2015-10 No Notes: Chil[place] jeannette en 325 MG / 0-07 (Same as: l Hydrocodone 22:23: [place] Rashmi nn Bitartrate 00 325/5) Do 5 MG Oral not exceed Tablet 4gm/day of acetaminop hen. Acetaminoph 2015-10 No Notes: Do M emoria en 0-07 not exceed l 22:23: 4 gm/day. [place] 00 (Same as: Tylenol) Ondansetron 2015-10 No Notes: [place] jeannette 0-07 (Same as: l 22:23: Zofran) [place] 00 MEDICATION WASTE Product Size: 4 mg Product Wasted: ___ mg Morphine 2015-10 No Notes: Memoria 0-07 (Same l 22:23: as:MORPhin [place] 00 e Sulfate) liothyronin 2015-10 Yes 5 [...] l mcg oral 22:03: = 1 tab, Arshmi nn tablet 00 PO, Daily, # 30 [...] by mouth ity of tablet 13:44: daily. [address] Branch vitamin Yes 1000ug Take 1,000 Un mariama B-12 3-22 mcg by ity of (VITAMIN 13:44: mouth [place] B-12) 1,000 33 daily. Medica l mcg tablet Branch cholecalcif Yes 1000U Take 1,000 Univers marylin, 3-22 Units by ity of vitamin D3, 13:44: mouth [place] (VITAMIN 33 daily. Medical D3) 1,000 Branch unit tablet LACTOBACILL Yes Take by Uni vers US 3-22 mouth ity of RHAMNOSUS 13:44: daily. [place] GG 33 Medical (CULTURELLE Branch ORAL) atorvastati Yes 10mg Take 10 mg Univers n (LIPITOR) 3-22 by mouth ity of 10 mg 13:44: daily. [place] [address] Medical Branch ERGOCALCIFE Yes 1000U Take 1,000 Univers ROL, 3-22 Units by ity of VITAMIN D2, 13:44: mouth. [place] (VITAMIN D 33 Medical ORAL) Branch tamsulosin Yes [id number] .4mg Take 1 Cap Univers (FLOMAX) 3-22 by mouth ity of 0.4 mg 24 00:00: daily. [place] hr capsule 00 Medical Branch levothyroxi Yes [id number] 88ug Take 1 Tab Univers ne 3-22 by mouth ity of (SYNTHROID) 00:00: every [place] 88 mcg 00 morning. Medical tablet Branch metoprolol Yes [id number] 25mg Take 1 Tab Univers succinate 1-21 by mouth ity of XL (TOPROL 00:00: daily. [place] XL) 25 mg 00 Medical 24 hr Branch tablet cyclobenzap Yes [id number] 5mg Take 1 Tab Univers rine 1-21 [...] Immunizations Ordered Filled Immunization Date Status Comments [facility] e Immunization Name Name SARS-COV-2 COVID-19 2021-07-14 Completed Unive rsity of PFIZER VACCINE 00:00:00 [facility] SARS-COV-2 COVID-19 2020-12-29 Completed Unive rsity of PFIZER VACCINE 00:00:00 [facility] SARS-COV-2 COVID-19 2020-12-08 Completed Unive rsity of PFIZER VACCINE 00:00:00 [facility] Vital Signs Vital Name Observation Time Observation Value Comments Source Heart Rate 2022-09-25 17:15:54 [facility] Systolic (mm Hg) 2022-09-25 17:15:28 [place] [facility] Diastolic (mm Hg) 2022-09-25 17:15:28 [facility] Temperature Oral (F) 2022-09-25 17:15:14 98 F [facility] Temperature Oral (F) 2022-09-24 10:07:56 98 F [facility] Height 2022-09-21 21:15:00 5 [ft_i] [facility] Weight 2022-09-21 21:15:00 [facility] Height 2022-09-19 19:33:00 167.64 cm [facility] BMI Calculated 2022-09-19 19:33:00 [facility] Weight 2022-09-19 19:33:00 [facility] Heart Rate 2022-09-19 13:37:01 [facility] Respitory Rate 2022-09-19 13:37:01 [facility] Temperature Oral (F) 2022-09-19 13:36:53 97.7 F [facility] Systolic (mm Hg) 2022-09-19 13:36:06 [place] [facility] [place] Diastolic (mm Hg) 2022-09-19 13:36:06 [facility] Heart Rate 2022-09-19 13:36:06 [facility] Systolic (mm Hg) 2022-09-19 10:21:00 [place] [facility] Diastolic (mm Hg) 2022-09-19 10:21:00 [facility] Respitory Rate 2022-09-19 10:21:00 [facility] [place] Heart Rate 2022-09-19 10:21:00 [facility] Systolic (mm Hg) 2022-09-19 07:52:00 [place] [facility] Diastolic (mm Hg) 2022-09-19 07:52:00 [facility] [place] Temperature Oral (F) 2022-09-19 06:35:00 97.7 F [facility] Respitory Rate 2022-09-19 06:35:00 [facility] Temperature Oral (F) 2022-09-19 02:10:46 97.9 F [facility] Height 2022-09-17 02:47:00 167.64 cm [facility] Weight 2022-09-17 02:47:00 [facility] BMI Calculated 2022-09-17 02:47:00 [facility] [place] Height 2022-09-16 05:00:00 167.64 cm [facility] BMI Calculated 2022-09-16 05:00:00 [facility] Weight 2022-09-16 05:00:00 [facility] Heart Rate 2022-07-05 13:17:22 [facility] Systolic (mm Hg) 2022-07-05 13:16:48 [place] [facility] Diastolic (mm Hg) 2022-07-05 13:16:48 [facility] Heart Rate 2022-07-05 13:16:48 [facility] Temperature Oral (F) 2022-07-05 13:16:38 98.5 F [facility] Heart Rate 2022-07-05 10:43:57 [facility] Respitory Rate 2022-07-05 10:43:57 [facility] Systolic (mm Hg) 2022-07-05 10:43:21 [place] [facility] [place] Diastolic (mm Hg) 2022-07-05 10:43:21 [facility] [place] Temperature Oral (F) 2022-07-05 10:43:16 98 F [facility] Respitory Rate 2022-07-05 04:18:09 [facility] Systolic (mm Hg) 2022-07-05 04:17:55 [place] [facility] [place] Diastolic (mm Hg) 2022-07-05 04:17:55 [facility] [place] Temperature Oral (F) 2022-07-05 04:17:48 97.5 F [facility] [place] Respitory Rate 2022-07-05 00:20:41 [facility] [place] Temperature Oral (F) 2022-06-20 08:43:00 97.2 F [facility] Respitory Rate 2022-06-20 08:00:00 [facility] [place] Systolic (mm Hg) 2022-06-20 08:00:00 [place] Diastolic (mm Hg) 2022-06-20 08:00:00 [facility] [place] Respitory Rate 2022-06-20 07:00:00 [facility] [place] Systolic (mm Hg) 2022-06-20 07:00:00 [place] Diastolic (mm Hg) 2022-06-20 07:00:00 Mem orial [place] Respitory Rate 2022-06-20 06:00:00 [facility] [place] Systolic (mm Hg) 2022-06-20 06:00:00 [place] Diastolic (mm Hg) 2022-06-20 06:00:00 Mem orial [place] Temperature Oral (F) 2022-06-20 04:25:00 98.7 F [facility] [place] Temperature Oral (F) 2022-06-20 00:45:00 98.5 F [facility] Height 2022-06-18 20:22:00 185.42 cm [facility] [place] Weight 2022-06-18 20:22:00 [facility] [place] BMI Calculated 2022-06-18 20:22:00 [facility] Heart Rate 2022-06-18 07:51:00 [facility] Temperature Oral (F) 2017-11-17 14:00:00 99 F [facility] Heart Rate 2017-11-17 14:00:00 [facility] Systolic (mm Hg) 2017-11-17 14:00:00 [place] Diastolic (mm Hg) 2017-11-17 14:00:00 Mem orial [place] Temperature Oral (F) 2017-11-17 10:04:00 98.2 F [facility] Respitory Rate 2017-11-17 10:04:00 [facility] [place] Heart Rate 2017-11-17 10:04:00 [facility] [place] Systolic (mm Hg) 2017-11-17 10:04:00 [place] Diastolic (mm Hg) 2017-11-17 10:04:00 Mem [facility]rial [place] Systolic (mm Hg) 2017-11-17 06:04:00 [place] Diastolic (mm Hg) 2017-11-17 06:04:00 [facility] [place] Respitory Rate 2017-11-17 06:04:00 [facility] [place] Temperature Oral (F) 2017-11-17 06:04:00 98 F [facility] [place] Heart Rate 2017-11-17 06:04:00 [facility] Respitory Rate 2017-11-17 02:00:00 [facility] [place] Weight 2017-11-15 16:51:00 [facility] [place] BMI Calculated 2017-11-15 16:51:00 [facility] Height 2017-11-15 16:51:00 177.8 cm [facility] [place] Respitory Rate 2016-07-23 19:00:00 [facility] [place] Systolic (mm Hg) 2016-07-23 18:00:00 [place] Diastolic (mm Hg) 2016-07-23 18:00:00 Mem [facility] Respitory Rate 2016-07-23 18:00:00 [facility] [place] Systolic (mm Hg) 2016-07-23 17:00:00 [place] Diastolic (mm Hg) 2016-07-23 17:00:00 Mem [facility]rial [place] Respitory Rate 2016-07-23 17:00:00 [facility] [place] Systolic (mm Hg) 2016-07-23 16:00:00 [place] Diastolic (mm Hg) 2016-07-23 16:00:00 Mem orial [place] Height 2016-07-22 21:31:00 177.8 cm [facility] Weight 2016-07-22 21:31:00 [facility] BMI Calculated 2016-07-22 21:31:00 [facility] [place] Temperature Oral (F) 2016-07-22 21:30:00 97.8 F [facility] Procedures Procedure Date / Time Performing Clinician Source Performed SARS-COV-2 COVID-19 2021-07-14 18:56:33 Doctor Unassigned, [facility] VACCINE,0.3ML,IM (PFIZER) [facility] [place] ESWL - Extracorporeal [facility] shock wave lithotripsy of bile duct calculus Colonoscopy [facility] Hydrocelectomy [facility] Tonsillectomy [facility] Cataract [facility] surgery<sup>1</sup> Encounters Start End Encounter Admission Attending Care Care Encounter Source Date/Time Date/Time Type Type Clinicians Facility Department ID 2023-02-13 Outpatient [facility] [id number] [place] 16:03:03 [id number] [facility] 2023-02-08 Outpatient [facility] [id number] [place] 08:27:19 [id number] [facility] 2022-12-23 Outpatient [facility] [id number] [place] 09:06:41 [id number] [facility] 2022-09-15 Outpatient [facility] [id number] [place] 22:48:04 [id number] [facility] 2022-06-22 Outpatient [facility] [id number] [place] 10:23:11 [id number] [facility] 2021-11-18 Outpatient MDA MARY ALICE [id number] MD 17:57:54 Michelle ayoub 2022-09-16 2022-09-25 Inpatient [facility] [id number] Memoria 04:59:00 21:35:[address] 2022-09-16 2022-09-25 Inpatient E DEON [facility] MED [id number] [facility] 11:16:00 15:35:00 JOHNATHAN 2022-09-15 2022-09-25 Outpatient Deon [facility] [id number] 22:59:00 15:35:00 Johnathanlalitha Moralez 2022-09-15 2022-09-15 Outpatient Braulio [facility] [id number] 22:59:00 22:59:00 Miguelavery 35 2022-06-18 2022-07-05 Inpatient nullFlavo [facility] [id number] Memoria 07:51:00 15:35:[address] 2022-06-18 2022-07-05 Inpatient nullFlavo [facility] [id number] Memoria 07:51:00 15:35:[address] 2022-06-18 2022-07-05 Inpatient E CHAVARRIA [facility] MED [id number] [facility] 11:24:00 10:35:00 JOHNATHAN 2022-06-18 2022-07-05 Outpatient Deon [facility] [id number] 02:51:00 10:35:00 Johnathan Moralez 2022 2022 Outpatient RICHAR [facility] [id number] [place] 07:45:00 07:45:00 [facility] 2022-06-18 2022-06-18 Outpatient Brian [facility] [id number] 02:51:00 02:51:00 Sherita Jaydon Tereza 2021-07-14 2021-07-[address] [facility] [id number] Univers 13:30:00 13:30:00 ity of [facility] 2021-07-14 2021-07-14 Imm/Inj Nurse, Adc Pob Immunization [facility] [id number] [facility] 13:18:54 13:28:54 Visit Kelby Freed [id number] .10 [facility] [id number] Wojciech Waldroprandy [id number] Nm dical [address] 2017-11-16 2017-11-17 Observatio nullFlavo [facility] [id number] Memoria 21:28:00 16:18:00 n r Jim 00 l [facility] 2017-11-16 2017-11-17 Observatio nullFlavo [facility] [id number] Memoria 21:28:00 16:18:00 n r [place] 00 l [facility] 2017-11-16 2017-11-17 Outpatient Vy [facility] [id number] 15:28:00 10:18:00 Jose Geovanni Tariq 2016-08-05 2016-08-06 Outpt Diag nullFlavo [facility] [id number] Memoria 16:42:00 04:59:00 Services r Outpatient 00 l [facility] 2016-08-05 2016-08-06 Outpt Diag nullFlavo [facility] [id number] Memoria 16:42:00 04:59:00 Services r Outpatient 00 l [facility] 2016-08-05 2016-08-05 Outpatient Mann, [id number] 11:42:00 23:59:00 Julia [id number] Frederic [id number] 5.30 2016-08-05 2016-08-05 Outpatient [facility] [id number] Memoria 10:30:00 10:30:00 00 [facility] 2016-08-05 2016-08-05 Outpatient MHIE MHIE [id number] Memoria 10:30:00 10:30:00 00 karely [place] 2016-07-22 2016-07-23 Inpatient nullFlavo [facility] [id number] Memoria 20:59:00 19:15:00 r Jim 81 [facility] 2016-07-22 2016-07-23 [facility] [id number] Memoria 20:59:00 19:15:00 r [place] 81 [facility] 2016-07-22 2016-07-23 [facility] [id number] 15:59:00 14:15:00 Jermaine 81 Results Test Description Test Time Test Comments Results Result Comments Source POINT OF CARE 2022-09-25 18:10:00 Test Item Value Reference Range Interpretation Comme nts Glucose POC (test code = Glucose POC) 106 70-99 [facility]XHXYJRWZM4357-25-14 11:01:00 Test Item Value Reference Range Interpretation Comments Glucose Lvl (test code = Glucose Lvl) 98 70-99 [facility]hamQkxdeuyKGDSEXDRU3633-75-62 11:01:00 Test Item Value Reference Range Interpretation Comments BUN (test code = BUN) 17 7-22 [facility]hamTsrwfweJAALBHHLK3516-72-63 11:01:00 Test Item Value Reference Range Interpretation Comments Creatinine Lvl (test code = Creatinine 0.64 0.50-1.40 Lvl) [facility]hamTwbwnglOAGICSSNF4112-48-09 11:01:00 Test Item Value Reference Range Interpretation Comments Sodium Lvl (test code = Sodium Lvl) 135 135-145 [facility]hamNdomnlqXZODVZFME0438-99-27 11:01:00 Test Item Value Reference Range Interpretation Comments Potassium Lvl (test code = Potassium 4.3 3.5-5.1 Lvl) [facility]hamMqctwnmOJQVKHEPU7933-23-64 11:01:00 Test Item Value Reference Range Interpretation Comments Chloride Lvl (test code = Chloride Lvl) 107 95-109 [facility]hamKzqqvvxKKBLUUCHX6292-54-73 11:01:00 Test Item Value Reference Range Interpretation Comments CO2 (test code = CO2) 21 24-32 [facility]hamJbufiqzLTFUSGCAB9387-10-70 11:01:00 Test Item Value Reference Range Interpretation Comments AGAP (test code = AGAP) 11.3 10.0-20.0 [facility]hamDxgogxeUXDDZHCYY7976-07-52 11:01:00 Test Item Value Reference Range Interpretation Comments Calcium Lvl (test code = Calcium Lvl) 8.8 8.5-10.5 [facility]hamDbnrmsfACWERYFXW2548-58-46 11:01:00 Test Item Value Reference Range Interpretation Comments eGFR (test code = eGFR) 91 [facility]pslgmvHJIPXYVPMY2745-[facility]-25 11:01:00 Test Item Value Reference Range Interpretation Comments WBC (test code = WBC) 12.4 3.7-10.4 [facility] AliceWsffsmdHAALBQSXYD8370-71-38 11:01:00 Test Item Value Reference Range Interpretation Comments RBC (test code = RBC) 3.69 4.70-6.10 [facility] AliceBsfskrxHWWNOJPCHS1582-43-69 11:01:00 Test Item Value Reference Range Interpretation Comments Hgb (test code = Hgb) 12.1 14.0-18.0 [facility] AliceHsvupgsWCPLYSFYRT2112-41-93 11:01:00 Test Item Value Reference Range Interpretation Comments Hct (test code = Hct) 36.7 42.0-54.0 [facility] AlicePlvmzuvSFEZRNJDOS6790-27-11 11:01:00 Test Item Value Reference Range Interpretation Comments MCV (test code = MCV) 99.5 80.0-94.0 [facility] AliceCeisjqhDSOVHAFNMS0649-14-48 11:01:00 Test Item Value Reference Range Interpretation Comments MCH (test code = MCH) 32.9 pg 27.0-31.0 [facility] AliceDnssglyTTOXRFIXWK0331-78-21 11:01:00 Test Item Value Reference Range Interpretation Comments MCHC (test code = MCHC) 33.0 32.0-36.0 [facility] AliceQtukdthKUNFXTNRPM7990-21-54 11:01:00 Test Item Value Reference Range Interpretation Comments RDW (test code = RDW) 13.1 11.5-14.5 [facility] AliceRbckidcQGJSSOELZE1887-60-81 11:01:00 Test Item Value Reference Range Interpretation Comments Platelet (test code = Platelet) 333 133-450 [facility] AliceDwwplehTAYUYTSLUR7260-21-90 11:01:00 Test Item Value Reference Range Interpretation Comments MPV (test code = MPV) 8.4 7.4-10.4 [facility] AliceIhuushlVUARMPUSXB0044-84-05 11:01:00 Test Item Value Reference Range Interpretation Comments Segs (test code = Segs) 75.9 45.0-75.0 [facility] AliceTmdhqziZVFLXRZPEI0521-82-25 11:01:00 Test Item Value Reference Range Interpretation Comments Lymphocytes (test code = Lymphocytes) 10.4 20.0-40.0 [facility] AliceQwyznnrBYNWNYXWJL0408-77-51 11:01:00 Test Item Value Reference Range Interpretation Comments Monocytes (test code = Monocytes) 12.5 2.0-12.0 [facility] AliceLlrzgopAUOCPCDQKA9764-57-58 11:01:00 Test Item Value Reference Range Interpretation Comments Eosinophils (test code = 0.5 See_Comment [A utomated message] The Eosinophils) system which ge nerated this result tra nsmitted reference range : <=4.0. The reference r mirela was not used to int erpret this result as normal/abnormal . [facility] AliceRzexbcnMNDVMECJSH5740-23-22 11:01:00 Test Item Value Reference Range Interpretation Comments Basophils (test code = 0.7 See_Comment [Aut omated message] The Basophils) system which ge nerated this result tra nsmitted reference range : <=1.0. The reference r mirela was not used to int erpret this result as normal/abnormal . [place] 417952-12-11 11:01:00 Test Item Value Reference Range Interpretation Comments Neutrophils # (test code = Neutrophils 9.5 1.5-8.1 #) [place] 417952-12-11 11:01:00 Test Item Value Reference Range Interpretation Comments Lymphocytes # (test code = Lymphocytes 1.3 1.0-5.5 #) [place] 417952-12-11 11:01:00 Test Item Value Reference Range Interpretation Comments Monocytes # (test code 1.6 See_Comment [Aut omated message] The = Monocytes #) system which generated this result tra nsmitted reference range : <=0.8. The reference r mirela was not used to int erpret this result as normal/abnormal . [facility] AliceHysrpksCROYUBBLZA8705-68-72 11:01:00 Test Item Value Reference Range Interpretation Comments Eosinophils # (test code 0.1 See_Comment [A utomated message] The = Eosinophils #) system [facility] h generated this result tra nsmitted reference range : <=0.5. The reference r mirela was not used to int erpret this result as normal/abnormal . [facility] AliceVzluljrGGJOIZQYBA0269-59-51 11:01:00 Test Item Value Reference Range Interpretation Comments Basophils # (test code 0.1 See_Comment [Aut omated message] The = Basophils #) system which generated this result tra nsmitted reference range : <=0.2. The reference r mirela was not used to int erpret this result as normal/abnormal . [facility]2022-12-10 12:03:00 Test Item Value Reference Range Interpretation Comments Gluc POC Comment 1 (test code Notified RN/MD = Gluc POC Comment 1) [facility] CckhakcVOJCVT0844-11-70 19:14:25 Test Item Value Reference Range Interpretation Comments RADRPT (test code PROCEDURE: Gastrostomy tube = RADRPT) placementAttending physician(s): Jean Paul Guevara MDFesonya/resident physician(s): Prudence Staton M.D.Pre-procedure diagnosis: Dysphagia - C2/C3 fxPost-procedure diagnosis: SameIndication: Nutritional supportAdditional relevant history: NoneCOMPARISON: NonePROCEDURE SUMMARY:- Gastrostomy tube placement under fluoroscopic guidanceIMPRESSION:Successfu l percutaneous placement of 20 Ivorian push-type gastrostomy tube.Plan: G-tube can be used after 24 hours once cleared by IR PROCEDURE DESCRIPTIONThe benefits, risks, and alternatives to the procedure and sedation were fully discussed and informed consent was obtained. Pre-procedure assessment was performed, which documented that the patient was an appropriate candidate for moderate sedation. All vital signs were monitored and recorded by nursing staff present during the entire procedure. Total intra-service time was 30 minutes.The patient was brought into the interventional suite and a pre-procedure time-out was performed. During the time-out, the patient's name, medical record number, site of procedure, and type of procedure were verified. The patient was placed in the supine position on the procedure table. The anticipated puncture site was prepped and draped in the usual sterile fashion and maximum sterile barrier precautions were maintained throughout the procedure.GASTROSTOMY TUBE PLACEMENTThe liver margin was localized by ultrasound. An indwelling nasogastric tube was already in place. Local anesthesia was administered with 1% lidocaine. The stomach was inflated with air and judged appropriate for access. 3 T-fasteners were placed under fluoroscopic guidance. The stomach was accessed and a wire was placed. The gastrostomy tract was dilated, the gastrostomy tube was advanced into the stomach, and intragastric position was confirmed with contrast injection. The tube was capped.Gastrostomy tube placed: MICInternal catheter securement: BalloonExternal catheter securement: Non absorbable suture and retention discThe patient tolerated the procedure well and was discharged from the interventional suite in stable condition. Special equipment used: NoneComplications: No immediate complications.Estimated blood loss (mL): Less than 10ContrastContrast agent: Omnipaque 300Contrast volume (mL): 5Radiation DoseFluoroscopy time (minutes): 1.3 Reference air kerma (mGy): 8.27 Kerma area product (uGy-m2): 223AttestationSigner name: MALVIN Urias attest that I was present for the entire procedure. I reviewed the stored images and agree with the report as written. [facility] AliceCesfrxsDJAUCCVOJF1104-26-21 12:27:00 Test Item Value Reference Range Interpretation Comments RBC Morph (test code = See Note 3(09/23/22 RBC Morph) 6:27 AM) [facility] AliceYvvxgvhZLXGDZEMYD1812-33-34 12:27:00 Test Item Value Reference Range Interpretation Comments Plt Morph (test code = Normal (09/23/22 6:27 Plt Morph) AM) [facility] WJZXKLI3998-50-11 08:05:00 Test Item Value Reference Range Interpretation Comments ABO/Rh (test code = ABO/Rh) O POS [facility] CampusNan[facility], [facility] [facility] OBEHCCJ2167-88-50 08:05:00 Test Item Value Reference Range Interpretation Comments Antibody Scrn (test Negative (09/21/22 2:05 code = Antibody Scrn) AM) [facility] AliceHkhvdhcCNHWMYAAMC7278-78-97 08:05:00 Test Item Value Reference Range Interpretation Comments PT (test code = PT) 13.4 s 12.0-14.7 [facility] AliceGpanotkINKQJYJVDQ1021-50-88 08:05:00 Test Item Value Reference Range Interpretation Comments INR (test code = INR) 1.03 1 0.85-1.17 [facility] AliceUkmpzenLKDBVCGDZF8876-21-71 08:05:00 Test Item Value Reference Range Interpretation Comments PTT (test code = PTT) 32.0 s 22.9-35.8 [facility] AliceVnmbyvkKVPJLWRBAI1189-53-82 08:05:00 Test Item Value Reference Range Interpretation Comments Macrocyte (test code = 1+ *ABN*(09/21/22 Macrocyte) 2:05 AM) [facility]hamQmktncqALUJEBCHM1582-44-96 11:39:00 Test Item Value Reference Range Interpretation Comments Magnesium Lvl (test code = Magnesium 2.2 1.8-2.4 Lvl) [facility]hamZynukjiIWELPQVNS1312-98-02 11:39:00 Test Item Value Reference Range Interpretation Comments Phosphorus (test code = Phosphorus) 2.6 2.5-4.5 [place] [id number] 19:48:41 Test Item Value Reference Range Interpretation Comments RADRPT (test code = EXAM: XR ABDOMEN 1 RADRPT) VIEWDATE: 09/19/2022 12:42 INDICATION: - DHT placementCOMPARISON: Abdominal x-ray 10/14/2022. TECHNIQUE: Limited AP view of the abdomen for tube placement assessment. Number of images: 1.FINDINGS: Feeding tube: A feeding tube tip overlies the gastroduodenal junction.Enteric suction tube: None. Other tubes, lines and hardware: Partially visualized hardware screw overlying the left lower pelvis.Other: Small amount of contrast material is seen within the stomach. Moderate stool burden. Again noted L2 vertebroplasty changes.IMPRESSION:1. Dobbhoff feeding tube tip overlies the costochondral junction. Small amount of contrast material is seen within the stomach.2. Other hardware as above.3. Moderate stool burden suggests constipation. No evidence of obstruction. [facility]hamYxrltuvEZSNIPVXP4827-41-30 19:13:00 Test Item Value Reference Range Interpretation Comments Lactic Acid Lvl (test code = Lactic 1.6 0.5-2.2 Acid Lvl) [place] [id number] 17:03:32 Test Item Value Reference Range Interpretation Comments RADRPT (test code EXAM: FLUOROSCOPY MODIFIED = RADRPT) BARIUM SWALLOWDATE: 09/19/2022 7:30INDICATION: Dysphagia - C2/C3 fx, COVID+.COMPARISON: None.TECHNIQUE: Oral barium contrast of differing consistencies was given to the patient to assess swallowing mechanism. The study was performed in conjunction with speech pathology.Fluoroscopy time: 1 minuteFluoroscopy dose: 5.80 mGyDISCUSSION:Thin: Laryngeal penetration. Material contacts vocal folds and is not ejected. Residual remains. (PAS-5)[place]: Subglottic aspiration. Material passes below vocal folds and is not ejected from the airway despite patient attempt. (PAS-7).[place]: Large residue, patient was unable to swallow.Other: None.IMPRESSION: 1. Laryngeal penetration and subglottic aspiration with thin and nectar barium consistency as described above.2. Large residual with pudding barium consistency as the patient was unable to swallow.3. Please also see detailed chart note by speech pathology. [place] 766732-12-05 09:25:00 Test Item Value Reference Range Interpretation Comments Glucose Lvl (test code = Glucose Lvl) 55 70-[address]12-05 09:25:00 Test Item Value Reference Range Interpretation Comments BUN (test code = BUN) 17 7-22 [place] [address]-12-05 09:25:00 Test Item Value Reference Range Interpretation Comments Creatinine Lvl (test code = Creatinine 0.79 0.50-1.40 Lvl) [address]12-05 09:25:00 Test Item Value Reference Range Interpretation Comments Sodium Lvl (test code = Sodium Lvl) 142 135-145 [place] [address]-12-05 09:25:00 Test Item Value Reference Range Interpretation Comments Potassium Lvl (test code = Potassium 4.3 3.5-5.1 Lvl) [address]12-05 09:25:00 Test Item Value Reference Range Interpretation Comments Chloride Lvl (test code = Chloride Lvl) 112 95-109 [place] [address]-12-05 09:25:00 Test Item Value Reference Range Interpretation Comments CO2 (test code = CO2) 15 24-32 [place] [address]-12-05 09:25:00 Test Item Value Reference Range Interpretation Comments Calcium Lvl (test code = Calcium Lvl) 8.9 8.5-10.[address]12-05 09:25:00 Test Item Value Reference Range Interpretation Comments AGAP (test code = AGAP) 19.3 10.0-20.[address]12-05 09:25:00 Test Item Value Reference Range Interpretation Comments eGFR (test code = eGFR) [address]12-05 09:25:00 Test Item Value Reference Range Interpretation Comments Magnesium Lvl (test code = Magnesium 2.4 1.8-2.4 Lvl) [address]12-05 09:25:00 Test Item Value Reference Range Interpretation Comments Phosphorus (test code = Phosphorus) 3.2 2.5-4.[address]12-05 09:25:00 Test Item Value Reference Range Interpretation Comments WBC (test code = WBC) 17.6 3.7-10.[address]12-05 09:25:00 Test Item Value Reference Range Interpretation Comments RBC (test code = RBC) 3.66 4.70-6.[address]12-05 09:25:00 Test Item Value Reference Range Interpretation Comments Hgb (test code = Hgb) 12.2 14.0-18.[address]12-05 09:25:00 Test Item Value Reference Range Interpretation Comments Hct (test code = Hct) 37.0 42.0-54.[address]12-05 09:25:00 Test Item Value Reference Range Interpretation Comments MCV (test code = MCV) 101.1 80.0-94.[address]12-05 09:25:00 Test Item Value Reference Range Interpretation Comments MCH (test code = MCH) 33.4 pg 27.0-31.[address]12-05 09:25:00 Test Item Value Reference Range Interpretation Comments MCHC (test code = MCHC) 33.1 32.0-36.[address]12-05 09:25:00 Test Item Value Reference Range Interpretation Comments RDW (test code = RDW) 13.0 11.5-14.[address]12-05 09:25:00 Test Item Value Reference Range Interpretation Comments Platelet (test code = Platelet) 296 133-450 [place] [address]-12-05 09:25:00 Test Item Value Reference Range Interpretation Comments MPV (test code = MPV) 8.1 7.4-10.4 [place] [address]-12-05 09:25:00 Test Item Value Reference Range Interpretation Comments Segs (test code = Segs) 87.9 45.0-75.0 [place] [address]-12-05 09:25:00 Test Item Value Reference Range Interpretation Comments Lymphocytes (test code = Lymphocytes) 3.3 20.0-40.0 [place] [address]-12-05 09:25:00 Test Item Value Reference Range Interpretation Comments Monocytes (test code = Monocytes) 8.5 2.0-12.[address]12-05 09:25:00 Test Item Value Reference Range Interpretation Comments Eosinophils (test code = 0.1 See_Comment [A utomated message] The Eosinophils) system which ge nerated this result tra nsmitted reference range : <=4.0. The reference r mirela was not used to int erpret this result as normal/abnormal . [place] [address]-12-05 09:25:00 Test Item Value Reference Range Interpretation Comments Basophils (test code = 0.2 See_Comment [Aut omated message] The Basophils) system which ge nerated this result tra nsmitted reference range : <=1.0. The reference r mirela was not used to int erpret this result as normal/abnormal . [place] [address]-12-05 09:25:00 Test Item Value Reference Range Interpretation Comments Neutrophils # (test code = Neutrophils 15.4 1.5-8.1 #) [place] [address]-12-05 09:25:00 Test Item Value Reference Range Interpretation Comments Lymphocytes # (test code = Lymphocytes 0.6 1.0-5.5 #) [place] [address]-12-05 09:25:00 Test Item Value Reference Range Interpretation Comments Monocytes # (test code 1.5 See_Comment [Aut omated message] The = Monocytes #) system which generated this result tra nsmitted reference range : <=0.8. The reference r mirela was not used to int erpret this result as normal/abnormal . [place] [address]-12-05 09:25:00 Test Item Value Reference Range Interpretation Comments Macrocyte (test code = 1+ *ABN*(09/19/22 Macrocyte) 3:25 AM) [place] 766732-12-04 15:27:00 Test Item Value Reference Range Interpretation Comments Glucose Lvl (test code = Glucose Lvl) 58 70-99 [place] 766732-12-04 15:27:00 Test Item Value Reference Range Interpretation Comments BUN (test code = BUN) 20 7-22 [place] 766732-12-04 15:27:00 Test Item Value Reference Range Interpretation Comments Creatinine Lvl (test code = Creatinine 0.84 0.50-1.40 Lvl) [place] 766732-12-04 15:27:00 Test Item Value Reference Range Interpretation Comments Sodium Lvl (test code = Sodium Lvl) 143 135-145 [place] 766732-12-04 15:27:00 Test Item Value Reference Range Interpretation Comments Potassium Lvl (test code = Potassium 3.8 3.5-5.1 Lvl) [place] 766732-12-04 15:27:00 Test Item Value Reference Range Interpretation Comments Chloride Lvl (test code = Chloride Lvl) 112 95-109 [place] 766732-12-04 15:27:00 Test Item Value Reference Range Interpretation Comments CO2 (test code = CO2) 19 24-32 [place] 766732-12-04 15:27:00 Test Item Value Reference Range Interpretation Comments Calcium Lvl (test code = Calcium Lvl) 8.6 8.5-10.5 [place] 766732-12-04 15:27:00 Test Item Value Reference Range Interpretation Comments AGAP (test code = AGAP) 15.8 10.0-20.0 [place] 766732-12-04 15:27:00 Test Item Value Reference Range Interpretation Comments eGFR (test code = eGFR) 83 [place] 417952-12-04 15:27:00 Test Item Value Reference Range Interpretation Comments WBC (test code = WBC) 11.9 3.7-10.4 [place] [address]-12-04 15:27:00 Test Item Value Reference Range Interpretation Comments RBC (test code = RBC) 3.53 4.70-6.10 [place] 417952-12-04 15:27:00 Test Item Value Reference Range Interpretation Comments Hgb (test code = Hgb) 11.8 14.0-18.0 [place] 417952-12-04 15:27:00 Test Item Value Reference Range Interpretation Comments Hct (test code = Hct) 35.6 42.0-54.0 [place] 417952-12-04 15:27:00 Test Item Value Reference Range Interpretation Comments MCV (test code = MCV) 100.8 80.0-94.0 [place] 417952-12-04 15:27:00 Test Item Value Reference Range Interpretation Comments MCH (test code = MCH) 33.3 pg 27.0-31.0 [place] [address]-12-04 15:27:00 Test Item Value Reference Range Interpretation Comments MCHC (test code = MCHC) 33.1 32.0-36.0 [place] 417952-12-04 15:27:00 Test Item Value Reference Range Interpretation Comments RDW (test code = RDW) 13.0 11.5-14.5 [facility]HlncpdrIIFCGORHKZ1780-34-25 15:27:00 Test Item Value Reference Range Interpretation Comments Platelet (test code = Platelet) 267 133-450 [facility] AliceDcstbsoSOXUDPPZEI9987-15-37 15:27:00 Test Item Value Reference Range Interpretation Comments MPV (test code = MPV) 8.3 7.4-10.4 [place] [address]-12-04 15:27:00 Test Item Value Reference Range Interpretation Comments Segs (test code = Segs) 83.9 45.0-75.0 [facility] AliceIvlgvclVIFRHHDZUW9485-83-74 15:27:00 Test Item Value Reference Range Interpretation Comments Lymphocytes (test code = Lymphocytes) 6.5 20.0-40.0 [place] [address]-12-04 15:27:00 Test Item Value Reference Range Interpretation Comments Monocytes (test code = Monocytes) 8.5 2.0-12.0 [place] [address]-12-04 15:27:00 Test Item Value Reference Range Interpretation Comments Eosinophils (test code = 0.6 See_Comment [A utomated message] The Eosinophils) system which ge nerated this result tra nsmitted reference range : <=4.0. The reference r mirela was not used to int erpret this result as normal/abnormal . [facility] AliceFrybkikMXBIFOLZPW8708-92-69 15:27:00 Test Item Value Reference Range Interpretation Comments Basophils (test code = 0.5 See_Comment [Aut omated message] The Basophils) system which ge nerated this result tra nsmitted reference range : <=1.0. The reference r mirela was not used to int erpret this result as normal/abnormal . [facility] AliceRqsqidoEKFEQLXSXG3660-36-22 15:27:00 Test Item Value Reference Range Interpretation Comments Neutrophils # (test code = Neutrophils 10.0 1.5-8.1 #) [facility] AliceArdbyjyVPKDWXTRUH0392-48-89 15:27:00 Test Item Value Reference Range Interpretation Comments Lymphocytes # (test code = Lymphocytes 0.8 1.0-5.5 #) [facility] AliceHyznjutJUUEWSVRFP4290-91-74 15:27:00 Test Item Value Reference Range Interpretation Comments Monocytes # (test code 1.0 See_Comment [Aut omated message] The = Monocytes #) system which generated this result tra nsmitted reference range : <=0.8. The reference r mirela was not used to int erpret this result as normal/abnormal . [facility] AliceHtygsrnIPVEKITODC9859-34-63 15:27:00 Test Item Value Reference Range Interpretation Comments Eosinophils # (test code 0.1 See_Comment [A utomated message] The = Eosinophils #) system whic h generated this result tra nsmitted reference range : <=0.5. The reference r mirela was not used to int erpret this result as normal/abnormal . [facility] AliceAccbwhrNEBCPBAQXX7936-22-58 15:27:00 Test Item Value Reference Range Interpretation Comments Basophils # (test code 0.1 See_Comment [Aut omated message] The = Basophils #) system which generated this result tra nsmitted reference range : <=0.2. The reference r mirela was not used to int erpret this result as normal/abnormal . [facility] AliceNoxmardJOUAOVXEFK6532-29-31 15:27:00 Test Item Value Reference Range Interpretation Comments Macrocyte (test code = 1+ *ABN*(09/18/22 Macrocyte) 9:27 AM) [place] [id number] 13:58:08 Test Item Value Reference Range Interpretation Comments RADRPT (test code = EXAM: XR ABDOMEN 1 RADRPT) VIEWDATE: 09/17/2022 12:28 INDICATION: - NGT placement COMPARISON: None. TECHNIQUE: AP view of the abdomen.FINDINGS: Large volume colonic stool.Bowel: No dilated small bowel loops.Solid organs: No organomegaly. No abnormal calcifications found. Bones: Threaded screws transfix the pelvic fractures. L2 vertebroplasty changes noted. IMPRESSION: Nasogastric suction tube or feeding tube not visualized in the image provided. Large volume colonic stool. [place] [id number] 12:43:53 Test Item Value Reference Range Interpretation Comments RADRPT (test code EXAM: XR ABDOMEN 1 = RADRPT) VIEWDATE: 09/17/2022 15:38 INDICATION: - NGT COMPARISON: September 17, 2022 1245 hours TECHNIQUE: Limited AP view of the abdomen for tube placement assessment. Number of images: 1FINDINGS: Transesophageal feeding tube: None visualized.Transesophageal suction tube: None visualized.Other tubes and lines: None.Moderate amount of colonic stool.IMPRESSION: Nasogastric suction tube or feeding tube not visualized in the image provided. [facility]KajlrqsFERICZ7508-97-92 04:22:44 Test Item Value Reference Range Interpretation Comments RADRPT (test code = EXAM: XR RIGHT HUMERUS 2 RADRPT) VIEWS DATE: 09/17/2022 11:55INDICATION: Pain - painCOMPARISON: None.TECHNIQUE: AP and lateral radiographs of the humerusFINDINGS: No acute fracture or malalignment is identified.No soft tissue abnormality is identified.IMPRESSION: No acute abnormality. [facility] HospitalUjxvlobPDFWAY3959-79-10 04:22:35 Test Item Value Reference Range Interpretation Comments RADRPT (test code = EXAM: XR LEFT ELBOW 3 RADRPT) VIEWSDATE: 09/17/2022 11:55INDICATION: - painCOMPARISON: None.TECHNIQUE: AP, lateral and oblique radiographs of the elbowFINDINGS: No acute fracture or malalignment is identified.No elbow joint effusion is present. No soft tissue abnormality is identified.IMPRESSION: No acute abnormality. [facility] HospitalUitclgkMNZLBW7021-43-01 04:21:52 Test Item Value Reference Range Interpretation Comments RADRPT (test code = EXAM: XR LEFT HUMERUS 2 RADRPT) VIEWS DATE: 09/17/2022 11:12INDICATION: - fxCOMPARISON: None.TECHNIQUE: AP and lateral radiographs of the humerusIMPRESSION: * Comminuted left surgical neck of humerus fracture with apex anterior angulation and displacement is identified. There is rotational element of the head of the humerus fracture as well.* Glenohumeral alignment is satisfactory. [place] [id number] 04:21:36 Test Item Value Reference Range Interpretation Comments RADRPT (test code = EXAM: XR RIGHT FOREARM 2 RADRPT) VIEWSDATE: 09/17/2022 11:55INDICATION: - painCOMPARISON: None.TECHNIQUE: AP and lateral radiographs of the forearmFINDINGS: No acute fracture or malalignment is identified.No soft tissue abnormality is identified.IMPRESSION: No acute abnormality. [place] [id number] 04:15:19 Test Item Value Reference Range Interpretation Comments RADRPT (test code = EXAM: XR PELVIS 3 RADRPT) VIEWSDATE: 09/17/2022 11:05INDICATION: - AP, inlet, outlet. PainCOMPARISON: July 02, 2022TECHNIQUE: AP, inlet and outlet views of the pelvisIMPRESSION: * Satisfactory pelvic ring alignment.* Posterior spinal stabilization and bilateral anterior column stabilization with cannulated screws are seen as before.* No pelvic encroachment. [facility]2022-12-03 10:32:00 Test Item Value Reference Range Interpretation Comments Glucose Lvl (test code = Glucose Lvl) 56 70-99 [facility]2022-12-03 10:32:00 Test Item Value Reference Range Interpretation Comments BUN (test code = BUN) 17 7-22 [facility]2022-12-03 10:32:00 Test Item Value Reference Range Interpretation Comments Creatinine Lvl (test code = Creatinine 0.80 0.50-1.40 Lvl) [facility]2022-12-03 10:32:00 Test Item Value Reference Range Interpretation Comments Sodium Lvl (test code = Sodium Lvl) 141 135-145 [facility]2022-12-03 10:32:00 Test Item Value Reference Range Interpretation Comments Potassium Lvl (test code = Potassium 4.6 3.5-5.1 Lvl) [place] 766732-12-03 10:32:00 Test Item Value Reference Range Interpretation Comments Chloride Lvl (test code = Chloride Lvl) 111 95-109 [place] 766732-12-03 10:32:00 Test Item Value Reference Range Interpretation Comments CO2 (test code = CO2) 18 24-32 [place] 766732-12-03 10:32:00 Test Item Value Reference Range Interpretation Comments Calcium Lvl (test code = Calcium Lvl) 9.3 8.5-10.5 [place] 766732-12-03 10:32:00 Test Item Value Reference Range Interpretation Comments AGAP (test code = AGAP) 16.6 10.0-20.0 [place] 766732-12-03 10:32:00 Test Item Value Reference Range Interpretation Comments eGFR (test code = eGFR) 85 [place] 417952-12-03 10:32:00 Test Item Value Reference Range Interpretation Comments WBC (test code = WBC) 14.3 3.7-10.4 [place] 417952-12-03 10:32:00 Test Item Value Reference Range Interpretation Comments RBC (test code = RBC) 4.13 4.70-6.10 [place] [address]-12-03 10:32:00 Test Item Value Reference Range Interpretation Comments Hgb (test code = Hgb) 13.5 14.0-18.0 [place] [address]-12-03 10:32:00 Test Item Value Reference Range Interpretation Comments Hct (test code = Hct) 42.0 42.0-54.0 [place] [address]-12-03 10:32:00 Test Item Value Reference Range Interpretation Comments MCV (test code = MCV) 101.8 80.0-94.0 [address]12-03 10:32:00 Test Item Value Reference Range Interpretation Comments MCH (test code = MCH) 32.7 pg 27.0-31.0 [place] [address]-12-03 10:32:00 Test Item Value Reference Range Interpretation Comments MCHC (test code = MCHC) 32.2 32.0-36.0 [place] [address]-12-03 10:32:00 Test Item Value Reference Range Interpretation Comments RDW (test code = RDW) 13.2 11.5-14.5 [place] 417952-12-03 10:32:00 Test Item Value Reference Range Interpretation Comments Platelet (test code = Platelet) 297 133-450 [place] 417952-12-03 10:32:00 Test Item Value Reference Range Interpretation Comments MPV (test code = MPV) 7.8 7.4-10.4 [place] 417952-12-03 10:32:00 Test Item Value Reference Range Interpretation Comments Segs (test code = Segs) 84.3 45.0-75.0 [place] [address]-12-03 10:32:00 Test Item Value Reference Range Interpretation Comments Lymphocytes (test code = Lymphocytes) 5.6 20.0-40.0 [place] [address]-12-03 10:32:00 Test Item Value Reference Range Interpretation Comments Monocytes (test code = Monocytes) 9.3 2.0-12.0 [place] 417952-12-03 10:32:00 Test Item Value Reference Range Interpretation Comments Eosinophils (test code = 0.3 See_Comment [A utomated message] The Eosinophils) system which ge nerated this result tra nsmitted reference range : <=4.0. The reference r mirela was not used to int erpret this result as normal/abnormal . [place] 417952-12-03 10:32:00 Test Item Value Reference Range Interpretation Comments Basophils (test code = 0.5 See_Comment [Aut omated message] The Basophils) system which ge nerated this result tra nsmitted reference range : <=1.0. The reference r mirela was not used to int erpret this result as normal/abnormal . [place] 417952-12-03 10:32:00 Test Item Value Reference Range Interpretation Comments Neutrophils # (test code = Neutrophils 12.1 1.5-8.1 #) [place] [address]-12-03 10:32:00 Test Item Value Reference Range Interpretation Comments Lymphocytes # (test code = Lymphocytes 0.8 1.0-5.5 #) [place] [address]-12-03 10:32:00 Test Item Value Reference Range Interpretation Comments Monocytes # (test code 1.3 See_Comment [Aut omated message] The = Monocytes #) system which generated this result tra nsmitted reference range : <=0.8. The reference r mirela was not used to int erpret this result as normal/abnormal . [facility]EnnweykEZJSVKHFNN1005-79-68 10:32:00 Test Item Value Reference Range Interpretation Comments Basophils # (test code 0.1 See_Comment [Aut omated message] The = Basophils #) system which generated this result tra nsmitted reference range : <=0.2. The reference r mirela was not used to int erpret this result as normal/abnormal . [facility] CenterZwcjeuwOLHGOVQQCD8185-94-00 10:32:00 Test Item Value Reference Range Interpretation Comments Macrocyte (test code = 1+ *ABN*(09/17/22 Macrocyte) 4:32 AM) [facility] [employer] BMLXMTD1574-83-39 16:53:00 Test Item Value Reference Range Interpretation Comments ABO/Rh (test code = ABO/Rh) O POS [facility] [employer] KLDZTHK8888-58-25 16:53:00 Test Item Value Reference Range Interpretation Comments Antibody Scrn (test Negative (09/16/22 code = Antibody Scrn) 10:53 AM) [facility]LnsqcdqIDCCJNWKWF8794-04-92 10:28:00 Test Item Value Reference Range Interpretation Comments Coronavirus (COVID-19) Detected MANASA (test code = 4*ABN*(09/16/22 4:28 Coronavirus (COVID-19) AM) MANASA) [facility] CampusJbxvgdvTEHLAJTBOV4138-63-26 10:28:00 Test Item Value Reference Range Interpretation Comments Coronavirus (COVID-19) Detected MANASA (test code = 2*ABN*(09/16/22 4:28 Coronavirus (COVID-19) AM) MANASA) [facility] [employer] [id number] 06:23:00 Test Item Value Reference Range Interpretation Comments Total Protein (test code = Total 6.3 6.4-8.4 Protein) [facility] [employer]2022-12-02 06:23:00 Test Item Value Reference Range Interpretation Comments Albumin Lvl (test code = Albumin Lvl) 3.0 3.5-5.0 [facility] [employer] UBECQ2296-06-21 06:23:00 Test Item Value Reference Range Interpretation Comments ALANINE AMINOTRANSFERASE 19 See_Comment [A utomated message] (test code = ALANINE The sys tem which AMINOTRANSFERASE) generated this result transmitted ref erence range: <=65. Th e reference range was not used to int erpret this result as normal/abnormal . [facility] [employer] [id number] 06:23:00 Test Item Value Reference Range Interpretation Comments AST (test code = AST) 14 See_Comment [Auto mated message] The system which ge nerated this result transmit sivakumar reference range : <=37. The reference range was not used to interpr et this result as jenelle l/abnormal. [facility] [employer] [id number] 06:23:00 Test Item Value Reference Range Interpretation Comments Alk Phos (test code = Alk Phos) 118 39-136 [facility] [employer] [id number] 06:23:00 Test Item Value Reference Range Interpretation Comments Bili Total (test code = Bili Total) 1.0 0.2-1.3 [facility] [employer] [id number] 06:23:00 Test Item Value Reference Range Interpretation Comments Bili Direct (test code 0.3 See_Comment [Aut omated message] The = Bili Direct) system which generated this result tra nsmitted reference range : <=0.3. The reference r mirela was not used to int erpret this result as jenelle l/abnormal. [facility] [employer] [id number] 06:23:00 Test Item Value Reference Range Interpretation Comments Bili Indirect (test 0.7 See_Comment [Automa sivakumar message] The code = Bili Indirect) system which generated this result tra nsmitted reference range : <=1.0. The reference r mirela was not used to int erpret this result as normal/abnormal . [facility] [employer] [id number] 06:23:00 Test Item Value Reference Range Interpretation Comments Globulin (test code = Globulin) 3.3 2.7-4.2 [facility] [employer] [id number] 06:23:00 Test Item Value Reference Range Interpretation Comments A/G Ratio (test code = A/G Ratio) 0.9 1 0.7-1.6 [facility] [employer] [id number] 06:23:00 Test Item Value Reference Range Interpretation Comments Lactic Acid Lvl (test code = Lactic 1.2 0.5-2.2 Acid Lvl) [facility]LwyhbyfEXQEJLKQQ1407-75-86 06:23:00 Test Item Value Reference Range Interpretation Comments Total Protein (test code = Total 6.3 6.4-8.4 Protein) [place] [address]-12-02 06:23:00 Test Item Value Reference Range Interpretation Comments Albumin Lvl (test code = Albumin Lvl) 3.0 3.5-5.0 [place] 769552-12-02 06:23:00 Test Item Value Reference Range Interpretation Comments ALANINE AMINOTRANSFERASE 19 See_Comment [A utomated message] (test code = ALANINE The sys tem which AMINOTRANSFERASE) generated this result transmitted ref erence range: <=65. Th e reference range was not used to int erpret this result as normal/abnormal . [place] 769552-12-02 06:23:00 Test Item Value Reference Range Interpretation Comments AST (test code = AST) 14 See_Comment [Auto mated message] The system which ge nerated this result transmit sivakumar reference range : <=37. The reference range was not used to interpr et this result as jenelle l/abnormal. [facility]hamTelyymrEHSYFGOTS9785-98-84 06:23:00 Test Item Value Reference Range Interpretation Comments Alk Phos (test code = Alk Phos) 118 39-136 [place] 769552-12-02 06:23:00 Test Item Value Reference Range Interpretation Comments Bili Total (test code = Bili Total) 1.0 0.2-1.3 [place] 769552-12-02 06:23:00 Test Item Value Reference Range Interpretation Comments Bili Direct (test code 0.3 See_Comment [Aut omated message] The = Bili Direct) system which generated this result tra nsmitted reference range : <=0.3. The reference r mirela was not used to int erpret this result as jenelle l/abnormal. [place] 769552-12-02 06:23:00 Test Item Value Reference Range Interpretation Comments Bili Indirect (test 0.7 See_Comment [Automa sivakumar message] The code = Bili Indirect) system which generated this result tra nsmitted reference range : <=1.0. The reference r mirela was not used to int erpret this result as normal/abnormal . [place] 769552-12-02 06:23:00 Test Item Value Reference Range Interpretation Comments Globulin (test code = Globulin) 3.3 2.7-4.2 [facility]hamPbrfhdgTLVQDILQO1558-56-42 06:23:00 Test Item Value Reference Range Interpretation Comments A/G Ratio (test code = A/G Ratio) 0.9 1 0.7-1.6 [place] [address]-12-02 06:23:00 Test Item Value Reference Range Interpretation Comments pH David (test code = pH David) 7.39 1 7.28-7.42 [place] 769552-12-02 06:23:00 Test Item Value Reference Range Interpretation Comments pCO2 David (test code = pCO2 David) 35 38-52 [place] 769552-12-02 06:23:00 Test Item Value Reference Range Interpretation Comments pO2 David (test code = pO2 David) 51 20-49 [place] 769552-12-02 06:23:00 Test Item Value Reference Range Interpretation Comments HCO3 David (test code = HCO3 David) 21 22-26 [place] 769552-12-02 06:23:00 Test Item Value Reference Range Interpretation Comments BE David (test code = BE David) -3 -2-2 [facility]hamArmlzexPFXZKFWSM9961-81-80 06:23:00 Test Item Value Reference Range Interpretation Comments O2 Sat David (calc) (test code = O2 Sat 85.3 40.0-70.0 David (calc)) [facility] BrenhamWeutpbcOWMLKMBUC9441-88-69 06:23:00 Test Item Value Reference Range Interpretation Comments Temp David (test code = Temp David) 37.0 [place] 417952-12-02 06:23:00 Test Item Value Reference Range Interpretation Comments ACT (TEG) Rapid (test code = ACT (TEG) 89 s 86-118 Rapid) [facility] AliceMfslrpeCOSQTOMPLR5157-83-91 06:23:00 Test Item Value Reference Range Interpretation Comments Split Point Rapid (test code = Split 0.3 min Point Rapid) [place] 417952-12-02 06:23:00 Test Item Value Reference Range Interpretation Comments R-time Rapid (test code = R-time 0.4 min 0.4-0.7 Rapid) [facility] AliceTdkxdfsBYBGDSBVNB6926-73-80 06:23:00 Test Item Value Reference Range Interpretation Comments K-time Rapid (test code = K-time 1.4 min 0.6-2.3 Rapid) [place] 417952-12-02 06:23:00 Test Item Value Reference Range Interpretation Comments Angle Rapid (test code = Angle 74 degrees 64-80 Rapid) [place] [address]-12-02 06:23:00 Test Item Value Reference Range Interpretation Comments Max Amplitude Rapid (test code = Max 63 mm 52-71 Amplitude Rapid) [place] 417952-12-02 06:23:00 Test Item Value Reference Range Interpretation Comments G-value Rapid (test code = G-value 8.5 5.0-11.6 Rapid) [place] [address]-12-02 06:23:00 Test Item Value Reference Range Interpretation Comments Estimated % Lysis Rapid 2.8 See_Comment [Au tomated message] The (test code = Estimated syste m which generated % Lysis Rapid) this result t ransmitted reference range : <=7.5. The reference r mirela was not used to int erpret this result as normal/abnormal . [place] 417952-12-02 06:23:00 Test Item Value Reference Range Interpretation Comments Basophils # (test code 0.1 See_Comment [Aut omated message] The = Basophils #) system which generated this result tra nsmitted reference range : <=0.2. The reference r mirela was not used to int erpret this result as normal/abnormal . [place] 417952-12-02 06:23:00 Test Item Value Reference Range Interpretation Comments ACT (TEG) Rapid (test code = ACT (TEG) 89 s 86-118 Rapid) [place] 417952-12-02 06:23:00 Test Item Value Reference Range Interpretation Comments Split Point Rapid (test code = Split 0.3 min Point Rapid) [place] [address]-12-02 06:23:00 Test Item Value Reference Range Interpretation Comments R-time Rapid (test code = R-time 0.4 min 0.4-0.7 Rapid) [address]12-02 06:23:00 Test Item Value Reference Range Interpretation Comments K-time Rapid (test code = K-time 1.4 min 0.6-2.3 Rapid) [place] [address]-12-02 06:23:00 Test Item Value Reference Range Interpretation Comments Angle Rapid (test code = Angle 74 degrees 64-80 Rapid) [address]12-02 06:23:00 Test Item Value Reference Range Interpretation Comments Max Amplitude Rapid (test code = Max 63 mm 52-71 Amplitude Rapid) [address]12-02 06:23:00 Test Item Value Reference Range Interpretation Comments G-value Rapid (test code = G-value 8.5 5.0-11.6 Rapid) [address]12-02 06:23:00 Test Item Value Reference Range Interpretation Comments Estimated % Lysis Rapid 2.8 See_Comment [Au tomated message] The (test code = Estimated syste m which generated % Lysis Rapid) this result t ransmitted reference range : <=7.5. The reference r mirela was not used to int erpret this result as normal/abnormal . [place] 766732-09-18 10:42:00 Test Item Value Reference Range Interpretation Comments Lactic Acid Lvl (test code = Lactic 1.0 0.5-2.2 Acid Lvl) [place] 766732-09-18 10:42:00 Test Item Value Reference Range Interpretation Comments Lactic Acid Lvl (test code = Lactic 1.0 0.5-2.2 Acid Lvl) [place] 766732-09-18 10:42:00 Test Item Value Reference Range Interpretation Comments Lactic Acid Lvl (test code = Lactic 1.0 0.5-2.2 Acid Lvl) [place] 766732-09-17 08:57:00 Test Item Value Reference Range Interpretation Comments Glucose Lvl (test code = Glucose Lvl) 93 70-99 [place] 766732-09-17 08:57:00 Test Item Value Reference Range Interpretation Comments BUN (test code = BUN) 16 7-22 [place] 766732-09-17 08:57:00 Test Item Value Reference Range Interpretation Comments Creatinine Lvl (test code = Creatinine 0.75 0.50-1.40 Lvl) [place] 766732-09-17 08:57:00 Test Item Value Reference Range Interpretation Comments Sodium Lvl (test code = Sodium Lvl) 141 135-145 [place] [address]-09-17 08:57:00 Test Item Value Reference Range Interpretation Comments Potassium Lvl (test code = Potassium 3.5 3.5-5.1 Lvl) [place] [address]-09-17 08:57:00 Test Item Value Reference Range Interpretation Comments Chloride Lvl (test code = Chloride Lvl) 112 95-109 [address]09-17 08:57:00 Test Item Value Reference Range Interpretation Comments CO2 (test code = CO2) 24 24-32 [place] [address]-09-17 08:57:00 Test Item Value Reference Range Interpretation Comments Calcium Lvl (test code = Calcium Lvl) 7.9 8.5-10.5 [place] [address]-09-17 08:57:00 Test Item Value Reference Range Interpretation Comments Total Protein (test code = Total 5.0 6.4-8.4 Protein) [address]09-17 08:57:00 Test Item Value Reference Range Interpretation Comments Albumin Lvl (test code = Albumin Lvl) 2.2 3.5-5.0 [place] [address]-09-17 08:57:00 Test Item Value Reference Range Interpretation Comments ALT (test code = ALT) 15 See_Comment [Auto mated message] The system which ge nerated this result transmit sivakumar reference range : <=65. The reference range was not used to interpr et this result as jenelle l/abnormal. [address]09-17 08:57:00 Test Item Value Reference Range Interpretation Comments AST (test code = AST) 14 See_Comment [Auto mated message] The system which ge nerated this result transmit sivakumar reference range : <=37. The reference range was not used to interpr et this result as jenelle l/abnormal. [place] [address]-09-17 08:57:00 Test Item Value Reference Range Interpretation Comments Alk Phos (test code = Alk Phos) 115 39-136 [place] [address]-09-17 08:57:00 Test Item Value Reference Range Interpretation Comments Bili Total (test code = Bili Total) 1.2 0.2-1.3 [place] [address]-09-17 08:57:00 Test Item Value Reference Range Interpretation Comments AGAP (test code = AGAP) 8.5 10.0-20.0 [address]09-17 08:57:00 Test Item Value Reference Range Interpretation Comments B/C Ratio (test code = B/C Ratio) 21 1 6-[address]09-17 08:57:00 Test Item Value Reference Range Interpretation Comments Globulin (test code = Globulin) 2.8 2.7-4.2 [place] [address]-09-17 08:57:00 Test Item Value Reference Range Interpretation Comments A/G Ratio (test code = A/G Ratio) 0.8 1 0.7-1.6 [address]09-17 08:57:00 Test Item Value Reference Range Interpretation Comments eGFR (test code = eGFR) 86 [place] 766732-09-17 08:57:00 Test Item Value Reference Range Interpretation Comments Procalcitonin Lvl (test 0.05 See_Comment [Au tomated message] code = Procalcitonin Lvl) e system which generated this result transmitted ref erence range: <=0.10. The reference range was not used to interpr et this result as normal/abnormal . [place] [address]-09-17 08:57:00 Test Item Value Reference Range Interpretation Comments WBC (test code = WBC) 12.1 3.7-10.4 [place] [address]-09-17 08:57:00 Test Item Value Reference Range Interpretation Comments RBC (test code = RBC) 2.08 4.70-6.10 [place] [address]-09-17 08:57:00 Test Item Value Reference Range Interpretation Comments Hgb (test code = Hgb) 7.4 14.0-18.0 [address]09-17 08:57:00 Test Item Value Reference Range Interpretation Comments Hct (test code = Hct) 22.5 42.0-54.0 [place] [address]-09-17 08:57:00 Test Item Value Reference Range Interpretation Comments MCV (test code = MCV) 108.5 80.0-94.0 [place] [address]-09-17 08:57:00 Test Item Value Reference Range Interpretation Comments MCH (test code = MCH) 35.6 pg 27.0-31.0 [facility]jj[facility]ktCQXLEXFPTL4768[facility]64-49 08:57:00 Test Item Value Reference Range Interpretation Comments MCHC (test code = MCHC) 32.8 32.0-36.0 [facility] AliceGzzcldeVZRIFBLJCG9288-83-58 08:57:00 Test Item Value Reference Range Interpretation Comments RDW (test code = RDW) 14.3 11.5-14.5 [place] 417952-09-17 08:57:00 Test Item Value Reference Range Interpretation Comments Platelet (test code = Platelet) 378 133-450 [place] 417952-09-17 08:57:00 Test Item Value Reference Range Interpretation Comments MPV (test code = MPV) 7.2 7.4-10.4 [place] [address]-09-17 08:57:00 Test Item Value Reference Range Interpretation Comments Segs (test code = Segs) 85.3 45.0-75.0 [place] 417952-09-17 08:57:00 Test Item Value Reference Range Interpretation Comments Lymphocytes (test code = Lymphocytes) 5.0 20.0-40.0 [place] 417952-09-17 08:57:00 Test Item Value Reference Range Interpretation Comments Monocytes (test code = Monocytes) 8.1 2.0-12.0 [place] 417952-09-17 08:57:00 Test Item Value Reference Range Interpretation Comments Eosinophils (test code = 1.0 See_Comment [A utomated message] The Eosinophils) system which ge nerated this result tra nsmitted reference range : <=4.0. The reference r mirela was not used to int erpret this result as normal/abnormal . [place] 417952-09-17 08:57:00 Test Item Value Reference Range Interpretation Comments Basophils (test code = 0.6 See_Comment [Aut omated message] The Basophils) system which ge nerated this result tra nsmitted reference range : <=1.0. The reference r mirela was not used to int erpret this result as normal/abnormal . [place] 417952-09-17 08:57:00 Test Item Value Reference Range Interpretation Comments Neutrophils # (test code = Neutrophils 10.3 1.5-8.1 #) [address]09-17 08:57:00 Test Item Value Reference Range Interpretation Comments Lymphocytes # (test code = Lymphocytes 0.6 1.0-5.5 #) [facility] AliceDkijiyfGXXJYRSLEN7993-29-96 08:57:00 Test Item Value Reference Range Interpretation Comments Monocytes # (test code 1.0 See_Comment [Aut omated message] The = Monocytes #) system which generated this result tra nsmitted reference range : <=0.8. The reference r mirela was not used to int erpret this result as normal/abnormal . [facility] AliceNphpibgVMLFZGGDZA7096-23-24 08:57:00 Test Item Value Reference Range Interpretation Comments Eosinophils # (test code 0.1 See_Comment [A utomated message] The = Eosinophils #) system whic h generated this result tra nsmitted reference range : <=0.5. The reference r mirela was not used to int erpret this result as normal/abnormal . [facility] AliceVvgbuvnXTQUFOHDSX5189-93-50 08:57:00 Test Item Value Reference Range Interpretation Comments Basophils # (test code 0.1 See_Comment [Aut omated message] The = Basophils #) system which generated this result tra nsmitted reference range : <=0.2. The reference r mirela was not used to int erpret this result as normal/abnormal . [facility] AliceCoyoekqJSQTLZGXZA5116-73-58 08:57:00 Test Item Value Reference Range Interpretation Comments Macrocyte (test code = 2+ *ABN*(07/02/22 Macrocyte) 3:57 AM) [facility]InMobiSELECT [facility]ITALEEPZQJG6383-16-35 08:57:00 Test Item Value Reference Range Interpretation Comments HS Troponin I (test code = HS Troponin 6 I) [facility] [id number] 08:57:00 Test Item Value Reference Range Interpretation Comments Lactic Acid Lvl (test code = Lactic 1.0 0.5-2.2 Acid Lvl) [facility] [id number] 08:57:00 Test Item Value Reference Range Interpretation Comments Glucose Lvl (test code = Glucose Lvl) 93 70-99 [facility] [id number] 08:57:00 Test Item Value Reference Range Interpretation Comments BUN (test code = BUN) 16 - [facility] [id number] 08:57:00 Test Item Value Reference Range Interpretation Comments Creatinine Lvl (test code = Creatinine 0.75 0.50-1.40 Lvl) [place] [address]6732-09-17 08:57:00 Test Item Value Reference Range Interpretation Comments Sodium Lvl (test code = Sodium Lvl) 141 135-145 [place] 766732-09-17 08:57:00 Test Item Value Reference Range Interpretation Comments Potassium Lvl (test code = Potassium 3.5 3.5-5.1 Lvl) [facility]2022-09-17 08:57:00 Test Item Value Reference Range Interpretation Comments Chloride Lvl (test code = Chloride Lvl) 112 95-109 [place] 766732-09-17 08:57:00 Test Item Value Reference Range Interpretation Comments CO2 (test code = CO2) 24 24-32 [place] 766732-09-17 08:57:00 Test Item Value Reference Range Interpretation Comments Calcium Lvl (test code = Calcium Lvl) 7.9 8.5-10.5 [facility]2022-09-17 08:57:00 Test Item Value Reference Range Interpretation Comments Total Protein (test code = Total 5.0 6.4-8.4 Protein) [facility]CARD[facility] [id number] 08:57:00 Test Item Value Reference Range Interpretation Comments HS Troponin I (test code = HS Troponin 6 I) [facility]2022-09-17 08:57:00 Test Item Value Reference Range Interpretation Comments Lactic Acid Lvl (test code = Lactic 1.0 0.5-2.2 Acid Lvl) [place] 766732-09-17 08:57:00 Test Item Value Reference Range Interpretation Comments Glucose Lvl (test code = Glucose Lvl) 93 70-99 [place] 766732-09-17 08:57:00 Test Item Value Reference Range Interpretation Comments BUN (test code = BUN) 16 7-22 [place] 766732-09-17 08:57:00 Test Item Value Reference Range Interpretation Comments Creatinine Lvl (test code = Creatinine 0.75 0.50-1.40 Lvl) [facility]2022-09-17 08:57:00 Test Item Value Reference Range Interpretation Comments Sodium Lvl (test code = Sodium Lvl) 141 135-145 [place] 766732-09-17 08:57:00 Test Item Value Reference Range Interpretation Comments Potassium Lvl (test code = Potassium 3.5 3.5-5.1 Lvl) [place] 766732-09-17 08:57:00 Test Item Value Reference Range Interpretation Comments Albumin Lvl (test code = Albumin Lvl) 2.2 3.5-5.0 [place] [address]-09-17 08:57:00 Test Item Value Reference Range Interpretation Comments Chloride Lvl (test code = Chloride Lvl) 112 95-109 [place] 766732-09-17 08:57:00 Test Item Value Reference Range Interpretation Comments CO2 (test code = CO2) 24 24-32 [place] 766732-09-17 08:57:00 Test Item Value Reference Range Interpretation Comments Calcium Lvl (test code = Calcium Lvl) 7.9 8.5-10.5 [place] 766732-09-17 08:57:00 Test Item Value Reference Range Interpretation Comments Total Protein (test code = Total 5.0 6.4-8.4 Protein) [place] 766732-09-17 08:57:00 Test Item Value Reference Range Interpretation Comments Albumin Lvl (test code = Albumin Lvl) 2.2 3.5-5.0 [place]6732-09-17 08:57:00 Test Item Value Reference Range Interpretation Comments ALT (test code = ALT) 15 See_Comment [Auto mated message] The system which ge nerated this result transmit sivakumar reference range : <=65. The reference range was not used to interpr et this result as jenelle l/abnormal. [place] 766732-09-17 08:57:00 Test Item Value Reference Range Interpretation Comments AST (test code = AST) 14 See_Comment [Auto mated message] The system which ge nerated this result transmit sivakumar reference range : <=37. The reference range was not used to interpr et this result as jenelle l/abnormal. [place] [address]-09-17 08:57:00 Test Item Value Reference Range Interpretation Comments Alk Phos (test code = Alk Phos) 115 39-136 [place] 766732-09-17 08:57:00 Test Item Value Reference Range Interpretation Comments Bili Total (test code = Bili Total) 1.2 0.2-1.3 [facility] [id number] 08:57:00 Test Item Value Reference Range Interpretation Comments AGAP (test code = AGAP) 8.5 10.0-20.0 [facility] [id number] 08:57:00 Test Item Value Reference Range Interpretation Comments ALT (test code = ALT) 15 See_Comment [Auto mated message] The system which ge nerated this result transmit sivakumar reference range : <=65. The reference range was not used to interpr et this result as jenelle l/abnormal. [facility] [id number] 08:57:00 Test Item Value Reference Range Interpretation Comments B/C Ratio (test code = B/C Ratio) 21 1 6-25 [facility] [id number] 08:57:00 Test Item Value Reference Range Interpretation Comments Globulin (test code = Globulin) 2.8 2.7-4.2 [facility] [id number] 08:57:00 Test Item Value Reference Range Interpretation Comments A/G Ratio (test code = A/G Ratio) 0.8 1 0.7-1.6 [facility] [id number] 08:57:00 Test Item Value Reference Range Interpretation Comments eGFR (test code = eGFR) 86 [facility] [id number] 08:57:00 Test Item Value Reference Range Interpretation Comments Procalcitonin Lvl (test 0.05 See_Comment [Au tomated message] code = Procalcitonin Lvl) Th e system which generated this result transmitted ref erence range: <=0.10. The reference range was not used to interpr et this result as normal/abnormal . [facility] CenterEyluscwIOJTMBQEUR8571-26-55 08:57:00 Test Item Value Reference Range Interpretation Comments WBC (test code = WBC) 12.1 3.7-10.4 [facility] CenterQbzcmmgPEWADKYQTM4740-07-53 08:57:00 Test Item Value Reference Range Interpretation Comments RBC (test code = RBC) 2.08 4.70-6.10 [facility] CenterLgyleabMLUUVGINHO3581-27-29 08:57:00 Test Item Value Reference Range Interpretation Comments Hgb (test code = Hgb) 7.4 14.0-18.0 [facility] AliceIckxtobCXOSRMZEBM3986-17-32 08:57:00 Test Item Value Reference Range Interpretation Comments Hct (test code = Hct) 22.5 42.0-54.0 [place] 417952-09-17 08:57:00 Test Item Value Reference Range Interpretation Comments MCV (test code = MCV) 108.5 80.0-94.0 [facility]2022-09-17 08:57:00 Test Item Value Reference Range Interpretation Comments AST (test code = AST) 14 See_Comment [Auto mated message] The system which ge nerated this result transmit sivakumar reference range : <=37. The reference range was not used to interpr et this result as jenelle l/abnormal. [facility] AliceDsaaxaeGJYCXKFQUX5131-79-80 08:57:00 Test Item Value Reference Range Interpretation Comments MCH (test code = MCH) 35.6 pg 27.0-31.0 [facility] AliceRjiidtrOKHWOUKANQ3377-64-13 08:57:00 Test Item Value Reference Range Interpretation Comments MCHC (test code = MCHC) 32.8 32.0-36.0 [facility] AliceXmhbtpgLEQLVHOOYG5744-63-76 08:57:00 Test Item Value Reference Range Interpretation Comments RDW (test code = RDW) 14.3 11.5-14.5 [facility] AliceKcpqukbABVKLSEOKP8194-86-29 08:57:00 Test Item Value Reference Range Interpretation Comments Platelet (test code = Platelet) 378 133-450 [facility] AliceVoiwautUJTWURJHOT7804-17-81 08:57:00 Test Item Value Reference Range Interpretation Comments MPV (test code = MPV) 7.2 7.4-10.4 [place] [address]-09-17 08:57:00 Test Item Value Reference Range Interpretation Comments Segs (test code = Segs) 85.3 45.0-75.0 [place] [address]-09-17 08:57:00 Test Item Value Reference Range Interpretation Comments Lymphocytes (test code = Lymphocytes) 5.0 20.0-40.0 [place] 417952-09-17 08:57:00 Test Item Value Reference Range Interpretation Comments Monocytes (test code = Monocytes) 8.1 2.0-12.0 [place] [address]-09-17 08:57:00 Test Item Value Reference Range Interpretation Comments Eosinophils (test code = 1.0 See_Comment [A utomated message] The Eosinophils) system which ge nerated this result tra nsmitted reference range : <=4.0. The reference r mirela was not used to int erpret this result as normal/abnormal . [place] [address]-09-17 08:57:00 Test Item Value Reference Range Interpretation Comments Basophils (test code = 0.6 See_Comment [Aut omated message] The Basophils) system which ge nerated this result tra nsmitted reference range : <=1.0. The reference r mirela was not used to int erpret this result as normal/abnormal . [place] 766732-09-17 08:57:00 Test Item Value Reference Range Interpretation Comments Alk Phos (test code = Alk Phos) 115 39-136 [place] [address]-09-17 08:57:00 Test Item Value Reference Range Interpretation Comments Neutrophils # (test code = Neutrophils 10.3 1.5-8.1 #) [place] [address]-09-17 08:57:00 Test Item Value Reference Range Interpretation Comments Lymphocytes # (test code = Lymphocytes 0.6 1.0-5.5 #) [address]09-17 08:57:00 Test Item Value Reference Range Interpretation Comments Monocytes # (test code 1.0 See_Comment [Aut omated message] The = Monocytes #) system which generated this result tra nsmitted reference range : <=0.8. The reference r mirela was not used to int erpret this result as normal/abnormal . [place] [address]-09-17 08:57:00 Test Item Value Reference Range Interpretation Comments Eosinophils # (test code 0.1 See_Comment [A utomated message] The = Eosinophils #) system whic h generated this result tra nsmitted reference range : <=0.5. The reference r mirela was not used to int erpret this result as normal/abnormal . [place] [address]-09-17 08:57:00 Test Item Value Reference Range Interpretation Comments Basophils # (test code 0.1 See_Comment [Aut omated message] The = Basophils #) system which generated this result tra nsmitted reference range : <=0.2. The reference r mirela was not used to int erpret this result as normal/abnormal . [address]09-17 08:57:00 Test Item Value Reference Range Interpretation Comments Macrocyte (test code = 2+ *ABN*(07/02/22 Macrocyte) 3:57 AM) [place] [address]-09-17 08:57:00 Test Item Value Reference Range Interpretation Comments Bili Total (test code = Bili Total) 1.2 0.2-1.3 [address]09-17 08:57:00 Test Item Value Reference Range Interpretation Comments AGAP (test code = AGAP) 8.5 10.0-20.0 [address]09-17 08:57:00 Test Item Value Reference Range Interpretation Comments B/C Ratio (test code = B/C Ratio) 21 1 6-[address]09-17 08:57:00 Test Item Value Reference Range Interpretation Comments Globulin (test code = Globulin) 2.8 2.7-4.2 [place] [address]-09-17 08:57:00 Test Item Value Reference Range Interpretation Comments A/G Ratio (test code = A/G Ratio) 0.8 1 0.7-1.6 [place] [address]-09-17 08:57:00 Test Item Value Reference Range Interpretation Comments eGFR (test code = eGFR) 86 [place] [address]-09-17 08:57:00 Test Item Value Reference Range Interpretation Comments Procalcitonin Lvl (test 0.05 See_Comment [Au tomated message] code = Procalcitonin Lvl) Th e system which generated this result transmitted ref erence range: <=0.10. The reference range was not used to interpr et this result as normal/abnormal . [place] [address]-09-17 08:57:00 Test Item Value Reference Range Interpretation Comments WBC (test code = WBC) 12.1 3.7-10.4 [address]09-17 08:57:00 Test Item Value Reference Range Interpretation Comments RBC (test code = RBC) 2.08 4.70-6.10 [address]09-17 08:57:00 Test Item Value Reference Range Interpretation Comments Hgb (test code = Hgb) 7.4 14.0-18.0 [place] 417952-09-17 08:57:00 Test Item Value Reference Range Interpretation Comments Hct (test code = Hct) 22.5 42.0-54.0 [place] 417952-09-17 08:57:00 Test Item Value Reference Range Interpretation Comments MCV (test code = MCV) 108.5 80.0-94.0 [place] 417952-09-17 08:57:00 Test Item Value Reference Range Interpretation Comments MCH (test code = MCH) 35.6 pg 27.0-31.0 [place] 417952-09-17 08:57:00 Test Item Value Reference Range Interpretation Comments MCHC (test code = MCHC) 32.8 32.0-36.0 [place] 417952-09-17 08:57:00 Test Item Value Reference Range Interpretation Comments RDW (test code = RDW) 14.3 11.5-14.5 [place] 417952-09-17 08:57:00 Test Item Value Reference Range Interpretation Comments Platelet (test code = Platelet) 378 133-450 [facility] AliceGghlajpAOYVKSZYSV8349-86-41 08:57:00 Test Item Value Reference Range Interpretation Comments MPV (test code = MPV) 7.2 7.4-10.4 [place] 417952-09-17 08:57:00 Test Item Value Reference Range Interpretation Comments Segs (test code = Segs) 85.3 45.0-75.0 [place] 417952-09-17 08:57:00 Test Item Value Reference Range Interpretation Comments Lymphocytes (test code = Lymphocytes) 5.0 20.0-40.0 [place] 417952-09-17 08:57:00 Test Item Value Reference Range Interpretation Comments Monocytes (test code = Monocytes) 8.1 2.0-12.0 [place] 417952-09-17 08:57:00 Test Item Value Reference Range Interpretation Comments Eosinophils (test code = 1.0 See_Comment [A utomated message] The Eosinophils) system which ge nerated this result tra nsmitted reference range : <=4.0. The reference r mirela was not used to int erpret this result as normal/abnormal . [facility] AliceKrawkfeOFRVTXXPBI3150-43-64 08:57:00 Test Item Value Reference Range Interpretation Comments Basophils (test code = 0.6 See_Comment [Aut omated message] The Basophils) system which ge nerated this result tra nsmitted reference range : <=1.0. The reference r mirela was not used to int erpret this result as normal/abnormal . [facility] AliceBaolcvbWVVJZJKTNM5597-69-15 08:57:00 Test Item Value Reference Range Interpretation Comments Neutrophils # (test code = Neutrophils 10.3 1.5-8.1 #) [facility] AliceAubrpnkRHNOXSRVWI9609-98-96 08:57:00 Test Item Value Reference Range Interpretation Comments Lymphocytes # (test code = Lymphocytes 0.6 1.0-5.5 #) [facility] AliceIduccscXDDGZVLFWA0341-85-75 08:57:00 Test Item Value Reference Range Interpretation Comments Monocytes # (test code 1.0 See_Comment [Aut omated message] The = Monocytes #) system which generated this result tra nsmitted reference range : <=0.8. The reference r mirela was not used to int erpret this result as normal/abnormal . [facility] [facility]dtqjyQVKCFUCVDI4363[facility]50-96 08:57:00 Test Item Value Reference Range Interpretation Comments Eosinophils # (test code 0.1 See_Comment [A utomated message] The = Eosinophils #) system whic h generated this result tra nsmitted reference range : <=0.5. The reference r mirela was not used to int erpret this result as normal/abnormal . [facility] AliceCnpehmrBBNDAWCTZP7628-74-33 08:57:00 Test Item Value Reference Range Interpretation Comments Basophils # (test code 0.1 See_Comment [Aut omated message] The = Basophils #) system which generated this result tra nsmitted reference range : <=0.2. The reference r mirela was not used to int erpret this result as normal/abnormal . [facility] AliceVxeafqgMGUGMWCBBH5992-39-94 08:57:00 Test Item Value Reference Range Interpretation Comments Macrocyte (test code = 2+ *ABN*(07/02/22 Macrocyte) 3:57 AM) [facility]2022-09-17 08:57:00 Test Item Value Reference Range Interpretation Comments HS Troponin I (test code = HS Troponin 6 I) [place] 766732-09-17 08:57:00 Test Item Value Reference Range Interpretation Comments Lactic Acid Lvl (test code = Lactic 1.0 0.5-2.2 Acid Lvl) [place] [address]-09-16 19:02:00 Test Item Value Reference Range Interpretation Comments Lactic Acid Lvl (test code = Lactic 1.3 0.5-2.2 Acid Lvl) [place] [address]-09-16 19:02:00 Test Item Value Reference Range Interpretation Comments Lactic Acid Lvl (test code = Lactic 1.3 0.5-2.2 Acid Lvl) [place] [address]-09-16 19:02:00 Test Item Value Reference Range Interpretation Comments Lactic Acid Lvl (test code = Lactic 1.3 0.5-2.2 Acid Lvl) [place] [address]-09-16 09:15:00 Test Item Value Reference Range Interpretation Comments Glucose Lvl (test code = Glucose Lvl) 107 70-99 [place] 766732-09-16 09:15:00 Test Item Value Reference Range Interpretation Comments BUN (test code = BUN) 21 7-22 [place] [address]-09-16 09:15:00 Test Item Value Reference Range Interpretation Comments Creatinine Lvl (test code = Creatinine 0.91 0.50-1.40 Lvl) [place] [address]-09-16 09:15:00 Test Item Value Reference Range Interpretation Comments Sodium Lvl (test code = Sodium Lvl) 141 135-145 [place] 766732-09-16 09:15:00 Test Item Value Reference Range Interpretation Comments Potassium Lvl (test code = Potassium 3.3 3.5-5.1 Lvl) [place] 766732-09-16 09:15:00 Test Item Value Reference Range Interpretation Comments Chloride Lvl (test code = Chloride Lvl) 112 95-109 [place] 766732-09-16 09:15:00 Test Item Value Reference Range Interpretation Comments CO2 (test code = CO2) 24 24-32 [place] [address]-09-16 09:15:00 Test Item Value Reference Range Interpretation Comments AGAP (test code = AGAP) 8.3 10.0-20.0 [facility] [id number] 09:15:00 Test Item Value Reference Range Interpretation Comments Calcium Lvl (test code = Calcium Lvl) 8.4 8.5-10.5 [facility] [id number] 09:15:00 Test Item Value Reference Range Interpretation Comments B/C Ratio (test code = B/C Ratio) 23 1 6-25 [facility] [id number] 09:15:00 Test Item Value Reference Range Interpretation Comments Total Protein (test code = Total 5.4 6.4-8.4 Protein) [facility] [id number] 09:15:00 Test Item Value Reference Range Interpretation Comments Albumin Lvl (test code = Albumin Lvl) 2.4 3.5-5.0 [facility] [id number] 09:15:00 Test Item Value Reference Range Interpretation Comments Globulin (test code = Globulin) 3.0 2.7-4.2 [facility] [id number] 09:15:00 Test Item Value Reference Range Interpretation Comments A/G Ratio (test code = A/G Ratio) 0.8 1 0.7-1.6 [facility] [id number] 09:15:00 Test Item Value Reference Range Interpretation Comments ALT (test code = ALT) 15 See_Comment [Auto mated message] The system which ge nerated this result transmit sivakumar reference range : <=65. The reference range was not used to interpr et this result as jenelle l/abnormal. [facility] [employer] [id number] 09:15:00 Test Item Value Reference Range Interpretation Comments AST (test code = AST) 15 See_Comment [Auto mated message] The system which ge nerated this result transmit sivakumar reference range : <=37. The reference range was not used to interpr et this result as jenelle l/abnormal. [facility] [employer] [id number] 09:15:00 Test Item Value Reference Range Interpretation Comments Alk Phos (test code = Alk Phos) 112 39-136 [facility] [id number] 09:15:00 Test Item Value Reference Range Interpretation Comments Bili Total (test code = Bili Total) 1.4 0.2-1.3 [facility]2022-09-16 09:15:00 Test Item Value Reference Range Interpretation Comments eGFR (test code = eGFR) 80 [facility]2022-09-16 09:15:00 Test Item Value Reference Range Interpretation Comments Phosphorus (test code = Phosphorus) 2.8 2.5-4.5 [place] 766732-09-16 09:15:00 Test Item Value Reference Range Interpretation Comments Magnesium Lvl (test code = Magnesium 2.1 1.8-2.4 Lvl) [facility] AliceAibqeglQUYWNIPLVE6811-10-60 09:15:00 Test Item Value Reference Range Interpretation Comments WBC (test code = WBC) 17.1 3.7-10.4 [place] 417952-09-16 09:15:00 Test Item Value Reference Range Interpretation Comments RBC (test code = RBC) 2.20 4.70-6.10 [place] 417952-09-16 09:15:00 Test Item Value Reference Range Interpretation Comments Hgb (test code = Hgb) 8.2 14.0-18.0 [place] 417952-09-16 09:15:00 Test Item Value Reference Range Interpretation Comments Hct (test code = Hct) 23.6 42.0-54.0 [place] 417952-09-16 09:15:00 Test Item Value Reference Range Interpretation Comments MCV (test code = MCV) 107.3 80.0-94.0 [place] 417952-09-16 09:15:00 Test Item Value Reference Range Interpretation Comments MCH (test code = MCH) 37.3 pg 27.0-31.0 [place] 417952-09-16 09:15:00 Test Item Value Reference Range Interpretation Comments MCHC (test code = MCHC) 34.8 32.0-36.0 [place] 417952-09-16 09:15:00 Test Item Value Reference Range Interpretation Comments RDW (test code = RDW) 14.2 11.5-14.5 [place] 417952-09-16 09:15:00 Test Item Value Reference Range Interpretation Comments Platelet (test code = Platelet) 433 133-450 [facility] AliceYywwnxeHHGMHDMHYD1851-71-57 09:15:00 Test Item Value Reference Range Interpretation Comments MPV (test code = MPV) 7.3 7.4-10.4 [place] 417952-09-16 09:15:00 Test Item Value Reference Range Interpretation Comments Segs (test code = Segs) 85.4 45.0-75.0 [place] 417952-09-16 09:15:00 Test Item Value Reference Range Interpretation Comments Lymphocytes (test code = Lymphocytes) 5.9 20.0-40.0 [place] 417952-09-16 09:15:00 Test Item Value Reference Range Interpretation Comments Monocytes (test code = Monocytes) 8.0 2.0-12.0 [place] [address]-09-16 09:15:00 Test Item Value Reference Range Interpretation Comments Eosinophils (test code = 0.5 See_Comment [A utomated message] The Eosinophils) system which ge nerated this result tra nsmitted reference range : <=4.0. The reference r mirela was not used to int erpret this result as normal/abnormal . [place] 417952-09-16 09:15:00 Test Item Value Reference Range Interpretation Comments Basophils (test code = 0.2 See_Comment [Aut omated message] The Basophils) system which ge nerated this result tra nsmitted reference range : <=1.0. The reference r mirela was not used to int erpret this result as normal/abnormal . [facility] AliceAkxedjxSHGQNJOENJ6603-88-32 09:15:00 Test Item Value Reference Range Interpretation Comments Neutrophils # (test code = Neutrophils 14.6 1.5-8.1 #) [place] 417952-09-16 09:15:00 Test Item Value Reference Range Interpretation Comments Lymphocytes # (test code = Lymphocytes 1.0 1.0-5.5 #) [place] 417952-09-16 09:15:00 Test Item Value Reference Range Interpretation Comments Monocytes # (test code 1.4 See_Comment [Aut omated message] The = Monocytes #) system which generated this result tra nsmitted reference range : <=0.8. The reference r mirela was not used to int erpret this result as normal/abnormal . [place] [address]-09-16 09:15:00 Test Item Value Reference Range Interpretation Comments Eosinophils # (test code 0.1 See_Comment [A utomated message] The = Eosinophils #) system whic h generated this result tra nsmitted reference range : <=0.5. The reference r mirela was not used to int erpret this result as normal/abnormal . [facility] AliceMqwflcwSJYSVAJHMH3686-57-59 09:15:00 Test Item Value Reference Range Interpretation Comments Macrocyte (test code = 2+ *ABN*(07/01/22 Macrocyte) 4:15 AM) [place] 766732-09-16 09:15:00 Test Item Value Reference Range Interpretation Comments Glucose Lvl (test code = Glucose Lvl) 107 70-99 [place] 766732-09-16 09:15:00 Test Item Value Reference Range Interpretation Comments BUN (test code = BUN) 21 7-22 [place] 766732-09-16 09:15:00 Test Item Value Reference Range Interpretation Comments Creatinine Lvl (test code = Creatinine 0.91 0.50-1.40 Lvl) [place] 766732-09-16 09:15:00 Test Item Value Reference Range Interpretation Comments Sodium Lvl (test code = Sodium Lvl) 141 135-145 [place] 766732-09-16 09:15:00 Test Item Value Reference Range Interpretation Comments Potassium Lvl (test code = Potassium 3.3 3.5-5.1 Lvl) [place] 766732-09-16 09:15:00 Test Item Value Reference Range Interpretation Comments Chloride Lvl (test code = Chloride Lvl) 112 95-109 [place] 766732-09-16 09:15:00 Test Item Value Reference Range Interpretation Comments CO2 (test code = CO2) 24 24-32 [place] 766732-09-16 09:15:00 Test Item Value Reference Range Interpretation Comments AGAP (test code = AGAP) 8.3 10.0-20.0 [place] 766732-09-16 09:15:00 Test Item Value Reference Range Interpretation Comments Calcium Lvl (test code = Calcium Lvl) 8.4 8.5-10.5 [place] 766732-09-16 09:15:00 Test Item Value Reference Range Interpretation Comments B/C Ratio (test code = B/C Ratio) 23 1 6-25 [place] [address]-09-16 09:15:00 Test Item Value Reference Range Interpretation Comments Total Protein (test code = Total 5.4 6.4-8.4 Protein) [place] [address]-09-16 09:15:00 Test Item Value Reference Range Interpretation Comments Albumin Lvl (test code = Albumin Lvl) 2.4 3.5-5.[address]09-16 09:15:00 Test Item Value Reference Range Interpretation Comments Globulin (test code = Globulin) 3.0 2.7-4.[address]09-16 09:15:00 Test Item Value Reference Range Interpretation Comments A/G Ratio (test code = A/G Ratio) 0.8 1 0.7-1.6 [address]09-16 09:15:00 Test Item Value Reference Range Interpretation Comments ALT (test code = ALT) 15 See_Comment [Auto mated message] The system which ge nerated this result transmit sivakumar reference range : <=65. The reference range was not used to interpr et this result as jenelle l/abnormal. [place] [address]-09-16 09:15:00 Test Item Value Reference Range Interpretation Comments AST (test code = AST) 15 See_Comment [Auto mated message] The system which ge nerated this result transmit sivakumar reference range : <=37. The reference range was not used to interpr et this result as jenelle l/abnormal. [place] [address]-09-16 09:15:00 Test Item Value Reference Range Interpretation Comments Alk Phos (test code = Alk Phos) 112 39-136 [place] [address]-09-16 09:15:00 Test Item Value Reference Range Interpretation Comments Bili Total (test code = Bili Total) 1.4 0.2-1.3 [place] [address]-09-16 09:15:00 Test Item Value Reference Range Interpretation Comments eGFR (test code = eGFR) 80 [place] [address]-09-16 09:15:00 Test Item Value Reference Range Interpretation Comments Phosphorus (test code = Phosphorus) 2.8 2.5-4.5 [place] [address]-09-16 09:15:00 Test Item Value Reference Range Interpretation Comments Magnesium Lvl (test code = Magnesium 2.1 1.8-2.4 Lvl) [facility] AliceUbgtrfaXGEFIAIHWC6458-02-59 09:15:00 Test Item Value Reference Range Interpretation Comments WBC (test code = WBC) 17.1 3.7-10.4 [facility] AliceOxpjsvhKCBTKCXKMF3853-08-06 09:15:00 Test Item Value Reference Range Interpretation Comments RBC (test code = RBC) 2.20 4.70-6.10 [facility] AlicePlodchjDISTXFBMJT0911-21-04 09:15:00 Test Item Value Reference Range Interpretation Comments Hgb (test code = Hgb) 8.2 14.0-18.0 [facility] AliceUfarsgrFECTAWGFOC2042-64-71 09:15:00 Test Item Value Reference Range Interpretation Comments Hct (test code = Hct) 23.6 42.0-54.0 [facility] AlicePfvmifcYIVOCYVXBT8938-46-66 09:15:00 Test Item Value Reference Range Interpretation Comments MCV (test code = MCV) 107.3 80.0-94.0 [facility] AlicePeapbkaWGZMBFSQLV0053-04-10 09:15:00 Test Item Value Reference Range Interpretation Comments MCH (test code = MCH) 37.3 pg 27.0-31.0 [facility] AliceMbjkcxgARTSXXRBVN4406-16-05 09:15:00 Test Item Value Reference Range Interpretation Comments MCHC (test code = MCHC) 34.8 32.0-36.0 [facility] AlicePzyxwpuUGWZKFXSCR6054-58-53 09:15:00 Test Item Value Reference Range Interpretation Comments RDW (test code = RDW) 14.2 11.5-14.5 [facility] AliceAvzqvoaBPGQWKELLL2876-15-87 09:15:00 Test Item Value Reference Range Interpretation Comments Platelet (test code = Platelet) 433 133-450 [facility] AliceXnafkwjICRRQWMFKK1416-50-97 09:15:00 Test Item Value Reference Range Interpretation Comments MPV (test code = MPV) 7.3 7.4-10.4 [facility] AliceMftuqacJMSODPMTSA2975-54-15 09:15:00 Test Item Value Reference Range Interpretation Comments Segs (test code = Segs) 85.4 45.0-75.0 [facility] AliceXmorsqwTTJOUCWNIH6173-77-02 09:15:00 Test Item Value Reference Range Interpretation Comments Lymphocytes (test code = Lymphocytes) 5.9 20.0-40.0 [place] 417952-09-16 09:15:00 Test Item Value Reference Range Interpretation Comments Monocytes (test code = Monocytes) 8.0 2.0-12.0 [facility] AliceDzyfogsPTRRERPPPJ0581-74-76 09:15:00 Test Item Value Reference Range Interpretation Comments Eosinophils (test code = 0.5 See_Comment [A utomated message] The Eosinophils) system which ge nerated this result tra nsmitted reference range : <=4.0. The reference r mirela was not used to int erpret this result as normal/abnormal . [place] [address]-09-16 09:15:00 Test Item Value Reference Range Interpretation Comments Basophils (test code = 0.2 See_Comment [Aut omated message] The Basophils) system which ge nerated this result tra nsmitted reference range : <=1.0. The reference r mirela was not used to int erpret this result as normal/abnormal . [place] 417952-09-16 09:15:00 Test Item Value Reference Range Interpretation Comments Neutrophils # (test code = Neutrophils 14.6 1.5-8.1 #) [place] 417952-09-16 09:15:00 Test Item Value Reference Range Interpretation Comments Lymphocytes # (test code = Lymphocytes 1.0 1.0-5.5 #) [place] [address]-09-16 09:15:00 Test Item Value Reference Range Interpretation Comments Monocytes # (test code 1.4 See_Comment [Aut omated message] The = Monocytes #) system which generated this result tra nsmitted reference range : <=0.8. The reference r mirela was not used to int erpret this result as normal/abnormal . [place] 417952-09-16 09:15:00 Test Item Value Reference Range Interpretation Comments Eosinophils # (test code 0.1 See_Comment [A utomated message] The = Eosinophils #) system whic h generated this result tra nsmitted reference range : <=0.5. The reference r mirela was not used to int erpret this result as normal/abnormal . [place] 417952-09-16 09:15:00 Test Item Value Reference Range Interpretation Comments Macrocyte (test code = 2+ *ABN*(07/01/22 Macrocyte) 4:15 AM) [place] 766732-09-16 09:15:00 Test Item Value Reference Range Interpretation Comments Glucose Lvl (test code = Glucose Lvl) 107 70-99 [place] 766732-09-16 09:15:00 Test Item Value Reference Range Interpretation Comments BUN (test code = BUN) 21 7-22 [place] 766732-09-16 09:15:00 Test Item Value Reference Range Interpretation Comments Creatinine Lvl (test code = Creatinine 0.91 0.50-1.40 Lvl) [place] 766732-09-16 09:15:00 Test Item Value Reference Range Interpretation Comments Sodium Lvl (test code = Sodium Lvl) 141 135-145 [place] 766732-09-16 09:15:00 Test Item Value Reference Range Interpretation Comments Potassium Lvl (test code = Potassium 3.3 3.5-5.1 Lvl) [place] 766732-09-16 09:15:00 Test Item Value Reference Range Interpretation Comments Chloride Lvl (test code = Chloride Lvl) 112 95-109 [place] 766732-09-16 09:15:00 Test Item Value Reference Range Interpretation Comments CO2 (test code = CO2) 24 24-32 [place] 766732-09-16 09:15:00 Test Item Value Reference Range Interpretation Comments AGAP (test code = AGAP) 8.3 10.0-20.0 [place] 766732-09-16 09:15:00 Test Item Value Reference Range Interpretation Comments Calcium Lvl (test code = Calcium Lvl) 8.4 8.5-10.5 [place] 766732-09-16 09:15:00 Test Item Value Reference Range Interpretation Comments B/C Ratio (test code = B/C Ratio) 23 1 6-25 [place] 766732-09-16 09:15:00 Test Item Value Reference Range Interpretation Comments Total Protein (test code = Total 5.4 6.4-8.4 Protein) [place] 766732-09-16 09:15:00 Test Item Value Reference Range Interpretation Comments Albumin Lvl (test code = Albumin Lvl) 2.4 3.5-5.0 [place] 766732-09-16 09:15:00 Test Item Value Reference Range Interpretation Comments Globulin (test code = Globulin) 3.0 2.7-4.2 [place] 766732-09-16 09:15:00 Test Item Value Reference Range Interpretation Comments A/G Ratio (test code = A/G Ratio) 0.8 1 0.7-1.6 [place] [address]-09-16 09:15:00 Test Item Value Reference Range Interpretation Comments ALT (test code = ALT) 15 See_Comment [Auto mated message] The system which ge nerated this result transmit sivakumar reference range : <=65. The reference range was not used to interpr et this result as jenelle l/abnormal. [place] [address]-09-16 09:15:00 Test Item Value Reference Range Interpretation Comments AST (test code = AST) 15 See_Comment [Auto mated message] The system which ge nerated this result transmit sivakumar reference range : <=37. The reference range was not used to interpr et this result as jenelle l/abnormal. [place] 766732-09-16 09:15:00 Test Item Value Reference Range Interpretation Comments Alk Phos (test code = Alk Phos) 112 39-136 [facility] [id number] 09:15:00 Test Item Value Reference Range Interpretation Comments Bili Total (test code = Bili Total) 1.4 0.2-1.3 [place] 766732-09-16 09:15:00 Test Item Value Reference Range Interpretation Comments eGFR (test code = eGFR) 80 [facility] WJJFF9915-15-29 09:15:00 Test Item Value Reference Range Interpretation Comments Phosphorus (test code = Phosphorus) 2.8 2.5-4.5 [place] [address]-09-16 09:15:00 Test Item Value Reference Range Interpretation Comments Magnesium Lvl (test code = Magnesium 2.1 1.8-2.4 Lvl) [place] 417952-09-16 09:15:00 Test Item Value Reference Range Interpretation Comments WBC (test code = WBC) 17.1 3.7-10.4 [place] [address]-09-16 09:15:00 Test Item Value Reference Range Interpretation Comments RBC (test code = RBC) 2.20 4.70-6.[address]09-16 09:15:00 Test Item Value Reference Range Interpretation Comments Hgb (test code = Hgb) 8.2 14.0-18.0 [place] 417952-09-16 09:15:00 Test Item Value Reference Range Interpretation Comments Hct (test code = Hct) 23.6 42.0-54.0 [place] 417952-09-16 09:15:00 Test Item Value Reference Range Interpretation Comments MCV (test code = MCV) 107.3 80.0-94.0 [place] 417952-09-16 09:15:00 Test Item Value Reference Range Interpretation Comments MCH (test code = MCH) 37.3 pg 27.0-31.0 [facility] AliceNyuvublRWLDVMOHQD0317-61-96 09:15:00 Test Item Value Reference Range Interpretation Comments MCHC (test code = MCHC) 34.8 32.0-36.0 [place] 417952-09-16 09:15:00 Test Item Value Reference Range Interpretation Comments RDW (test code = RDW) 14.2 11.5-14.5 [place] 417952-09-16 09:15:00 Test Item Value Reference Range Interpretation Comments Platelet (test code = Platelet) 433 133-450 [facility] AliceMthgaeeRAHHLGJXDR2183-53-74 09:15:00 Test Item Value Reference Range Interpretation Comments MPV (test code = MPV) 7.3 7.4-10.4 [place] 417952-09-16 09:15:00 Test Item Value Reference Range Interpretation Comments Segs (test code = Segs) 85.4 45.0-75.0 [place] 417952-09-16 09:15:00 Test Item Value Reference Range Interpretation Comments Lymphocytes (test code = Lymphocytes) 5.9 20.0-40.0 [place] [address]-09-16 09:15:00 Test Item Value Reference Range Interpretation Comments Monocytes (test code = Monocytes) 8.0 2.0-12.0 [place] [address]-09-16 09:15:00 Test Item Value Reference Range Interpretation Comments Eosinophils (test code = 0.5 See_Comment [A utomated message] The Eosinophils) system which ge nerated this result tra nsmitted reference range : <=4.0. The reference r mirela was not used to int erpret this result as normal/abnormal . [facility] AliceRzwromrJLZVRJXTDJ7556-46-65 09:15:00 Test Item Value Reference Range Interpretation Comments Basophils (test code = 0.2 See_Comment [Aut omated message] The Basophils) system which ge nerated this result tra nsmitted reference range : <=1.0. The reference r mirela was not used to int erpret this result as normal/abnormal . [facility] AliceXfmhhnnLLHGGYVVMW4658-83-57 09:15:00 Test Item Value Reference Range Interpretation Comments Neutrophils # (test code = Neutrophils 14.6 1.5-8.1 #) [facility] AliceTtthtzcBZBHFSPWCA1589-02-38 09:15:00 Test Item Value Reference Range Interpretation Comments Lymphocytes # (test code = Lymphocytes 1.0 1.0-5.5 #) [facility] AliceGsegugtRICFPHDFGR5749-54-67 09:15:00 Test Item Value Reference Range Interpretation Comments Monocytes # (test code 1.4 See_Comment [Aut omated message] The = Monocytes #) system which generated this result tra nsmitted reference range : <=0.8. The reference r mirela was not used to int erpret this result as normal/abnormal . [facility] AliceNhthmedHJJCXVLRES7649-11-21 09:15:00 Test Item Value Reference Range Interpretation Comments Eosinophils # (test code 0.1 See_Comment [A utomated message] The = Eosinophils #) system whic h generated this result tra nsmitted reference range : <=0.5. The reference r mirela was not used to int erpret this result as normal/abnormal . [facility] AliceOiihfzpNPWKEGPTUG4037-23-17 09:15:00 Test Item Value Reference Range Interpretation Comments Macrocyte (test code = 2+ *ABN*(07/01/22 Macrocyte) 4:15 AM) [facility] AND [id number] 11:13:00 Test Item Value Reference Range Interpretation Comments UA Color (test code = Yellow *NA*(06/30/22 UA Color) 6:13 AM) [facility] AND HWLJI0914-16-01 11:13:00 Test Item Value Reference Range Interpretation Comments UA Turbidity (test code = Clear (06/30/22 6:13 UA Turbidity) AM) [facility] AND [id number] 11:13:00 Test Item Value Reference Range Interpretation Comments UA Spec Grav (test code = UA Spec 1.025 1 Grav) [facility] AND [id number] 11:13:00 Test Item Value Reference Range Interpretation Comments UA pH (test code = UA pH) 5.5 1 5.0-8.0 [facility] AND [id number] 11:13:00 Test Item Value Reference Range Interpretation Comments UA Protein (test code Negative (06/30/22 6:13 = UA Protein) AM) [facility] AND [id number] 11:13:00 Test Item Value Reference Range Interpretation Comments UA Glucose (test code Negative (06/30/22 6:13 = UA Glucose) AM) [facility] AND [id number] 11:13:00 Test Item Value Reference Range Interpretation Comments UA Ketones (test code = UA Ketones) 40 mg/dL [facility] AND [id number] 11:13:00 Test Item Value Reference Range Interpretation Comments UA Bili (test code = Small *ABN*(06/30/22 UA Bili) 6:13 AM) [facility] AND [id number] 11:13:00 Test Item Value Reference Range Interpretation Comments UA Blood (test code = Negative (06/30/22 6:13 UA Blood) AM) [facility] AND [id number] 11:13:00 Test Item Value Reference Range Interpretation Comments UA Urobilinogen (test code = UA 1.0 0.1-1.0 Urobilinogen) [facility] AND [id number] 11:13:00 Test Item Value Reference Range Interpretation Comments UA Nitrite (test code Negative (06/30/22 6:13 = UA Nitrite) AM) [facility] AND [id number] 11:13:00 Test Item Value Reference Range Interpretation Comments UA Leuk Est (test Negative (06/30/22 6:13 code = UA Leuk Est) AM) [facility] AND [id number] 11:13:00 Test Item Value Reference Range Interpretation Comments UA Sq Epi (test code = UA Sq Occasional /LPF Epi) [facility] AND [id number] 11:13:00 Test Item Value Reference Range Interpretation Comments UA WBC (test code = 1 See_Comment [Automa sivakumar message] The UA WBC) system which ge nerated this result transmit sivakumar reference range : <=5. The reference range was not used to interpr et this result as jenelle l/abnormal. [facility] [id number] 11:13:00 Test Item Value Reference Range Interpretation Comments UA RBC (test code = no gt See_Comment [Automa sivakumar message] The UA RBC) system which ge nerated this result transmit sivakumar reference range : <=2. The reference range was not used to interpr et this result as jenelle l/abnormal. [facility] AND [id number] 11:13:00 Test Item Value Reference Range Interpretation Comments UA Mucus (test code = UA Mucus) Few /LPF [facility] [id number] 11:13:00 Test Item Value Reference Range Interpretation Comments UA Hyal Cast (test 4 See_Comment [Automat ed message] The code = UA Hyal Cast) system which generated this result transmit sivakumar reference range : <=2. The reference range was not used to interpr et this result as jenelle l/abnormal. [facility] AND [id number] 11:13:00 Test Item Value Reference Range Interpretation Comments UA Trans Epi (test code = UA Trans Epi) 2 [facility] [id number] 11:13:00 Test Item Value Reference Range Interpretation Comments UA Color (test code = Yellow *NA*(06/30/22 UA Color) 6:13 AM) [facility] AND [id number] 11:13:00 Test Item Value Reference Range Interpretation Comments UA Turbidity (test code = Clear (06/30/22 6:13 UA Turbidity) AM) [facility] [id number] 11:13:00 Test Item Value Reference Range Interpretation Comments UA Spec Grav (test code = UA Spec 1.025 1 Grav) [facility] [id number] 11:13:00 Test Item Value Reference Range Interpretation Comments UA pH (test code = UA pH) 5.5 1 5.0-8.0 [facility] [id number] 11:13:00 Test Item Value Reference Range Interpretation Comments UA Protein (test code Negative (06/30/22 6:13 = UA Protein) AM) [facility] AND [id number] 11:13:00 Test Item Value Reference Range Interpretation Comments UA Glucose (test code Negative (06/30/22 6:13 = UA Glucose) AM) [facility] AND [id number] 11:13:00 Test Item Value Reference Range Interpretation Comments UA Ketones (test code = UA Ketones) 40 mg/dL [facility] AND [id number] 11:13:00 Test Item Value Reference Range Interpretation Comments UA Bili (test code = Small *ABN*(06/30/22 UA Bili) 6:13 AM) [facility] AND [id number] 11:13:00 Test Item Value Reference Range Interpretation Comments UA Blood (test code = Negative (06/30/22 6:13 UA Blood) AM) [facility] AND [id number] 11:13:00 Test Item Value Reference Range Interpretation Comments UA Urobilinogen (test code = UA 1.0 0.1-1.0 Urobilinogen) [facility] AND [id number] 11:13:00 Test Item Value Reference Range Interpretation Comments UA Nitrite (test code Negative (06/30/22 6:13 = UA Nitrite) AM) [facility] AND [id number] 11:13:00 Test Item Value Reference Range Interpretation Comments UA Leuk Est (test Negative (06/30/22 6:13 code = UA Leuk Est) AM) [facility] AND [id number] 11:13:00 Test Item Value Reference Range Interpretation Comments UA Sq Epi (test code = UA Sq Occasional /LPF Epi) [facility] AND [id number] 11:13:00 Test Item Value Reference Range Interpretation Comments UA WBC (test code = 1 See_Comment [Automa sivakumar message] The UA WBC) system which ge nerated this result transmit sivakumar reference range : <=5. The reference range was not used to interpr et this result as jenelle l/abnormal. [facility] AND [id number] 11:13:00 Test Item Value Reference Range Interpretation Comments UA RBC (test code = no gt See_Comment [Automa sivakumar message] The UA RBC) system which ge nerated this result transmit sivakumar reference range : <=2. The reference range was not used to interpr et this result as jenelle l/abnormal. [facility] AND [id number] 11:13:00 Test Item Value Reference Range Interpretation Comments UA Mucus (test code = UA Mucus) Few /LPF [facility] [id number] 11:13:00 Test Item Value Reference Range Interpretation Comments UA Hyal Cast (test 4 See_Comment [Automat ed message] The code = UA Hyal Cast) system which generated this result transmit sivakumar reference range : <=2. The reference range was not used to interpr et this result as jenelle l/abnormal. [facility] [id number] 11:13:00 Test Item Value Reference Range Interpretation Comments UA Trans Epi (test code = UA Trans Epi) 2 [facility] AND [id number] 11:13:00 Test Item Value Reference Range Interpretation Comments UA Color (test code = Yellow *NA*(06/30/22 UA Color) 6:13 AM) [facility] AND [id number] 11:13:00 Test Item Value Reference Range Interpretation Comments UA Turbidity (test code = Clear (06/30/22 6:13 UA Turbidity) AM) [facility] AND [id number] 11:13:00 Test Item Value Reference Range Interpretation Comments UA Spec Grav (test code = UA Spec 1.025 1 Grav) [facility] AND [id number] 11:13:00 Test Item Value Reference Range Interpretation Comments UA pH (test code = UA pH) 5.5 1 5.0-8.0 [facility] AND [id number] 11:13:00 Test Item Value Reference Range Interpretation Comments UA Protein (test code Negative (06/30/22 6:13 = UA Protein) AM) [facility] AND [id number] 11:13:00 Test Item Value Reference Range Interpretation Comments UA Glucose (test code Negative (06/30/22 6:13 = UA Glucose) AM) [facility] AND [id number] 11:13:00 Test Item Value Reference Range Interpretation Comments UA Ketones (test code = UA Ketones) 40 mg/dL [facility] AND [id number] 11:13:00 Test Item Value Reference Range Interpretation Comments UA Bili (test code = Small *ABN*(06/30/22 UA Bili) 6:13 AM) [facility] AND [id number] 11:13:00 Test Item Value Reference Range Interpretation Comments UA Blood (test code = Negative (06/30/22 6:13 UA Blood) AM) [facility] AND [id number] 11:13:00 Test Item Value Reference Range Interpretation Comments UA Urobilinogen (test code = UA 1.0 0.1-1.0 Urobilinogen) [facility] AND [id number] 11:13:00 Test Item Value Reference Range Interpretation Comments UA Nitrite (test code Negative (06/30/22 6:13 = UA Nitrite) AM) [facility] AND [id number] 11:13:00 Test Item Value Reference Range Interpretation Comments UA Leuk Est (test Negative (06/30/22 6:13 code = UA Leuk Est) AM) [facility] AND [id number] 11:13:00 Test Item Value Reference Range Interpretation Comments UA Sq Epi (test code = UA Sq Occasional /LPF Epi) [facility] AND [id number] 11:13:00 Test Item Value Reference Range Interpretation Comments UA WBC (test code = 1 See_Comment [Automa sivakumar message] The UA WBC) system which ge nerated this result transmit sivakumar reference range : <=5. The reference range was not used to interpr et this result as jenelle l/abnormal. [facility] AND [id number] 11:13:00 Test Item Value Reference Range Interpretation Comments UA RBC (test code = no gt See_Comment [Automa sivakumar message] The UA RBC) system which ge nerated this result transmit sivakumar reference range : <=2. The reference range was not used to interpr et this result as jenelle l/abnormal. [facility] AND [id number] 11:13:00 Test Item Value Reference Range Interpretation Comments UA Mucus (test code = UA Mucus) Few /LPF [facility] AND [id number] 11:13:00 Test Item Value Reference Range Interpretation Comments UA Hyal Cast (test 4 See_Comment [Automat ed message] The code = UA Hyal Cast) system which generated this result transmit sivakumar reference range : <=2. The reference range was not used to interpr et this result as jenelle l/abnormal. [facility] AND [id number] 11:13:00 Test Item Value Reference Range Interpretation Comments UA Trans Epi (test code = UA Trans Epi) 2 [facility]2022-09-15 09:31:00 Test Item Value Reference Range Interpretation Comments Glucose Lvl (test code = Glucose Lvl) 65 70-99 [place] 766732-09-15 09:31:00 Test Item Value Reference Range Interpretation Comments BUN (test code = BUN) 26 7-22 [place] 766732-09-15 09:31:00 Test Item Value Reference Range Interpretation Comments Creatinine Lvl (test code = Creatinine 0.87 0.50-1.40 Lvl) [facility]2022-09-15 09:31:00 Test Item Value Reference Range Interpretation Comments Sodium Lvl (test code = Sodium Lvl) 139 135-145 [place] 766732-09-15 09:31:00 Test Item Value Reference Range Interpretation Comments Potassium Lvl (test code = Potassium 4.2 3.5-5.1 Lvl) [place] 766732-09-15 09:31:00 Test Item Value Reference Range Interpretation Comments Chloride Lvl (test code = Chloride Lvl) 110 95-109 [place] 766732-09-15 09:31:00 Test Item Value Reference Range Interpretation Comments CO2 (test code = CO2) 23 24-32 [place] 766732-09-15 09:31:00 Test Item Value Reference Range Interpretation Comments Calcium Lvl (test code = Calcium Lvl) 8.9 8.5-10.5 [place] 766732-09-15 09:31:00 Test Item Value Reference Range Interpretation Comments Total Protein (test code = Total 6.1 6.4-8.4 Protein) [place] 766732-09-15 09:31:00 Test Item Value Reference Range Interpretation Comments Albumin Lvl (test code = Albumin Lvl) 2.7 3.5-5.0 [place] 766732-09-15 09:31:00 Test Item Value Reference Range Interpretation Comments ALT (test code = ALT) 17 See_Comment [Auto mated message] The system which ge nerated this result transmit sivakumar reference range : <=65. The reference range was not used to interpr et this result as jenelle l/abnormal. [facility] [id number] 09:31:00 Test Item Value Reference Range Interpretation Comments AST (test code = AST) 20 See_Comment [Auto mated message] The system which ge nerated this result transmit sivakumar reference range : <=37. The reference range was not used to interpr et this result as jenelle l/abnormal. [facility] [id number] 09:31:00 Test Item Value Reference Range Interpretation Comments Alk Phos (test code = Alk Phos) 121 39-136 [facility] [id number] 09:31:00 Test Item Value Reference Range Interpretation Comments Bili Total (test code = Bili Total) 2.1 0.2-1.3 [facility] [id number] 09:31:00 Test Item Value Reference Range Interpretation Comments AGAP (test code = AGAP) 10.2 10.0-20.0 [facility] [id number] 09:31:00 Test Item Value Reference Range Interpretation Comments B/C Ratio (test code = B/C Ratio) 30 1 6-25 [facility] [id number] 09:31:00 Test Item Value Reference Range Interpretation Comments Globulin (test code = Globulin) 3.4 2.7-4.2 [facility] [id number] 09:31:00 Test Item Value Reference Range Interpretation Comments A/G Ratio (test code = A/G Ratio) 0.8 1 0.7-1.6 [facility] [id number] 09:31:00 Test Item Value Reference Range Interpretation Comments eGFR (test code = eGFR) [id number] 09:31:00 Test Item Value Reference Range Interpretation Comments WBC (test code = WBC) 20.6 3.7-10.4 [id number] 09:31:00 Test Item Value Reference Range Interpretation Comments RBC (test code = RBC) 2.45 4.70-6.10 [id number] 09:31:00 Test Item Value Reference Range Interpretation Comments Hgb (test code = Hgb) 8.9 14.0-18.0 [place] 417952-09-15 09:31:00 Test Item Value Reference Range Interpretation Comments Hct (test code = Hct) 26.3 42.0-54.0 [place] 417952-09-15 09:31:00 Test Item Value Reference Range Interpretation Comments MCV (test code = MCV) 107.4 80.0-94.0 [id number] 09:31:00 Test Item Value Reference Range Interpretation Comments MCH (test code = MCH) 36.2 pg 27.0-31.0 [facility] Alice[facility]onsjxpAHVFWVKEWS3585-54-15 09:31:00 Test Item Value Reference Range Interpretation Comments MCHC (test code = MCHC) 33.7 32.0-36.0 [place] 417952-09-15 09:31:00 Test Item Value Reference Range Interpretation Comments RDW (test code = RDW) 13.6 11.5-14.5 [facility] [id number] 09:31:00 Test Item Value Reference Range Interpretation Comments Platelet (test code = Platelet) 459 133-450 [facility] AliceSifudspKDACGKJECZ0821-77-85 09:31:00 Test Item Value Reference Range Interpretation Comments MPV (test code = MPV) 7.1 7.4-10.4 [place] 417952-09-15 09:31:00 Test Item Value Reference Range Interpretation Comments Segs (test code = Segs) 88.8 45.0-75.0 [place] 417952-09-15 09:31:00 Test Item Value Reference Range Interpretation Comments Lymphocytes (test code = Lymphocytes) 3.9 20.0-40.0 [place] 417952-09-15 09:31:00 Test Item Value Reference Range Interpretation Comments Monocytes (test code = Monocytes) 7.2 2.0-12.0 [place] 417952-09-15 09:31:00 Test Item Value Reference Range Interpretation Comments Basophils (test code = 0.1 See_Comment [Aut omated message] The Basophils) system which ge nerated this result tra nsmitted reference range : <=1.0. The reference r mirela was not used to int erpret this result as normal/abnormal . [facility] [id number] 09:31:00 Test Item Value Reference Range Interpretation Comments Neutrophils # (test code = Neutrophils 18.3 1.5-8.1 #) [facility] [id number] 09:31:00 Test Item Value Reference Range Interpretation Comments Lymphocytes # (test code = Lymphocytes 0.8 1.0-5.5 #) [facility] AliceWpwvkmxZUUUOHZDRJ0070-23-31 09:31:00 Test Item Value Reference Range Interpretation Comments Monocytes # (test code 1.5 See_Comment [Aut omated message] The = Monocytes #) system which generated this result tra nsmitted reference range : <=0.8. The reference r mirela was not used to int erpret this result as normal/abnormal . [facility] [id number] 09:31:00 Test Item Value Reference Range Interpretation Comments Macrocyte (test code = 2+ *ABN*(06/30/22 Macrocyte) 4:31 AM) [place] [address]-09-15 09:31:00 Test Item Value Reference Range Interpretation Comments MCHC (test code = MCHC) 33.7 32.0-36.0 [place] [address]-09-15 09:31:00 Test Item Value Reference Range Interpretation Comments RDW (test code = RDW) 13.6 11.5-14.5 [place] [address]-09-15 09:31:00 Test Item Value Reference Range Interpretation Comments Platelet (test code = Platelet) 459 089-450 [place] 417952-09-15 09:31:00 Test Item Value Reference Range Interpretation Comments MPV (test code = MPV) 7.1 7.4-10.4 [place] [address]-09-15 09:31:00 Test Item Value Reference Range Interpretation Comments Segs (test code = Segs) 88.8 45.0-75.0 [place] 417952-09-15 09:31:00 Test Item Value Reference Range Interpretation Comments Lymphocytes (test code = Lymphocytes) 3.9 20.0-40.0 [place] [address]-09-15 09:31:00 Test Item Value Reference Range Interpretation Comments Monocytes (test code = Monocytes) 7.2 2.0-12.0 [place] [address]-09-15 09:31:00 Test Item Value Reference Range Interpretation Comments Basophils (test code = 0.1 See_Comment [Aut omated message] The Basophils) system which ge nerated this result tra nsmitted reference range : <=1.0. The reference r mirela was not used to int erpret this result as normal/abnormal . [place] 417952-09-15 09:31:00 Test Item Value Reference Range Interpretation Comments Neutrophils # (test code = Neutrophils 18.3 1.5-8.1 #) [place] [address]-09-15 09:31:00 Test Item Value Reference Range Interpretation Comments Lymphocytes # (test code = Lymphocytes 0.8 1.0-5.5 #) [place] [address]-09-15 09:31:00 Test Item Value Reference Range Interpretation Comments Monocytes # (test code 1.5 See_Comment [Aut omated message] The = Monocytes #) system which generated this result tra nsmitted reference range : <=0.8. The reference r mirela was not used to int erpret this result as normal/abnormal . [place] [address]-09-15 09:31:00 Test Item Value Reference Range Interpretation Comments Macrocyte (test code = 2+ *ABN*(06/30/22 Macrocyte) 4:31 AM) [place] [address]-09-15 09:31:00 Test Item Value Reference Range Interpretation Comments Glucose Lvl (test code = Glucose Lvl) 65 70-99 [place] 766732-09-15 09:31:00 Test Item Value Reference Range Interpretation Comments BUN (test code = BUN) 26 7-22 [place] [address]-09-15 09:31:00 Test Item Value Reference Range Interpretation Comments Creatinine Lvl (test code = Creatinine 0.87 0.50-1.40 Lvl) [place] [address]-09-15 09:31:00 Test Item Value Reference Range Interpretation Comments Sodium Lvl (test code = Sodium Lvl) 139 135-145 [place] 766732-09-15 09:31:00 Test Item Value Reference Range Interpretation Comments Potassium Lvl (test code = Potassium 4.2 3.5-5.1 Lvl) [place] [address]-09-15 09:31:00 Test Item Value Reference Range Interpretation Comments Chloride Lvl (test code = Chloride Lvl) 110 95-109 [place] [address]-09-15 09:31:00 Test Item Value Reference Range Interpretation Comments CO2 (test code = CO2) 23 24-32 [place] [address]-09-15 09:31:00 Test Item Value Reference Range Interpretation Comments Calcium Lvl (test code = Calcium Lvl) 8.9 8.5-10.5 [place] [address]-09-15 09:31:00 Test Item Value Reference Range Interpretation Comments Total Protein (test code = Total 6.1 6.4-8.4 Protein) [place] [address]-09-15 09:31:00 Test Item Value Reference Range Interpretation Comments Albumin Lvl (test code = Albumin Lvl) 2.7 3.5-5.0 [place] [address]-09-15 09:31:00 Test Item Value Reference Range Interpretation Comments ALT (test code = ALT) 17 See_Comment [Auto mated message] The system which ge nerated this result transmit sivakumar reference range : <=65. The reference range was not used to interpr et this result as jenelle l/abnormal. [place] [address]-09-15 09:31:00 Test Item Value Reference Range Interpretation Comments AST (test code = AST) 20 See_Comment [Auto mated message] The system which ge nerated this result transmit sivakumar reference range : <=37. The reference range was not used to interpr et this result as jenelle l/abnormal. [place] [address]-09-15 09:31:00 Test Item Value Reference Range Interpretation Comments Alk Phos (test code = Alk Phos) 121 39-136 [place] [address]-09-15 09:31:00 Test Item Value Reference Range Interpretation Comments Bili Total (test code = Bili Total) 2.1 0.2-1.3 [place] [address]-09-15 09:31:00 Test Item Value Reference Range Interpretation Comments AGAP (test code = AGAP) 10.2 10.0-20.0 [place] [address]-09-15 09:31:00 Test Item Value Reference Range Interpretation Comments B/C Ratio (test code = B/C Ratio) 30 1 6-25 [place] 766732-09-15 09:31:00 Test Item Value Reference Range Interpretation Comments Globulin (test code = Globulin) 3.4 2.7-4.2 [place] 766732-09-15 09:31:00 Test Item Value Reference Range Interpretation Comments A/G Ratio (test code = A/G Ratio) 0.8 1 0.7-1.6 [place] 766732-09-15 09:31:00 Test Item Value Reference Range Interpretation Comments eGFR (test code = eGFR) 83 [facility] AliceJdeccuoRIJNKAVWWS7988-78-43 09:31:00 Test Item Value Reference Range Interpretation Comments WBC (test code = WBC) 20.6 3.7-10.4 [place] 417952-09-15 09:31:00 Test Item Value Reference Range Interpretation Comments RBC (test code = RBC) 2.45 4.70-6.10 [place] 417952-09-15 09:31:00 Test Item Value Reference Range Interpretation Comments Hgb (test code = Hgb) 8.9 14.0-18.0 [place] 417952-09-15 09:31:00 Test Item Value Reference Range Interpretation Comments Hct (test code = Hct) 26.3 42.0-54.0 [place] 417952-09-15 09:31:00 Test Item Value Reference Range Interpretation Comments MCV (test code = MCV) 107.4 80.0-94.0 [place] 417952-09-15 09:31:00 Test Item Value Reference Range Interpretation Comments MCH (test code = MCH) 36.2 pg 27.0-31.0 [place] 417952-09-15 09:31:00 Test Item Value Reference Range Interpretation Comments MCHC (test code = MCHC) 33.7 32.0-36.0 [place] 417952-09-15 09:31:00 Test Item Value Reference Range Interpretation Comments RDW (test code = RDW) 13.6 11.5-14.5 [place] 417952-09-15 09:31:00 Test Item Value Reference Range Interpretation Comments Platelet (test code = Platelet) 532 531-848 [place] 417952-09-15 09:31:00 Test Item Value Reference Range Interpretation Comments MPV (test code = MPV) 7.1 7.4-10.4 [place] 417952-09-15 09:31:00 Test Item Value Reference Range Interpretation Comments Segs (test code = Segs) 88.8 45.0-75.0 [place] 417952-09-15 09:31:00 Test Item Value Reference Range Interpretation Comments Lymphocytes (test code = Lymphocytes) 3.9 20.0-40.0 [place] 417952-09-15 09:31:00 Test Item Value Reference Range Interpretation Comments Monocytes (test code = Monocytes) 7.2 2.0-12.0 [place] 417952-09-15 09:31:00 Test Item Value Reference Range Interpretation Comments Basophils (test code = 0.1 See_Comment [Aut omated message] The Basophils) system which ge nerated this result tra nsmitted reference range : <=1.0. The reference r mirela was not used to int erpret this result as normal/abnormal . [facility] AliceIfgdayiMWWNESKPGY2702-41-92 09:31:00 Test Item Value Reference Range Interpretation Comments Neutrophils # (test code = Neutrophils 18.3 1.5-8.1 #) [facility] AliceArmusxkDAWFUJHSHD0947-82-89 09:31:00 Test Item Value Reference Range Interpretation Comments Lymphocytes # (test code = Lymphocytes 0.8 1.0-5.5 #) [facility] AliceHvuohgkKVXDEBNVDI5901-86-86 09:31:00 Test Item Value Reference Range Interpretation Comments Monocytes # (test code 1.5 See_Comment [Aut omated message] The = Monocytes #) system which generated this result tra nsmitted reference range : <=0.8. The reference r mirela was not used to int erpret this result as normal/abnormal . [facility] AliceCfbyijyYJHIMYJZVD7007-12-68 09:31:00 Test Item Value Reference Range Interpretation Comments Macrocyte (test code = 2+ *ABN*(06/30/22 Macrocyte) 4:31 AM) [facility]2022-09-15 09:31:00 Test Item Value Reference Range Interpretation Comments Glucose Lvl (test code = Glucose Lvl) 65 70-99 [place] [address]-09-15 09:31:00 Test Item Value Reference Range Interpretation Comments BUN (test code = BUN) 26 7-22 [place] [address]-09-15 09:31:00 Test Item Value Reference Range Interpretation Comments Creatinine Lvl (test code = Creatinine 0.87 0.50-1.40 Lvl) [address]09-15 09:31:00 Test Item Value Reference Range Interpretation Comments Sodium Lvl (test code = Sodium Lvl) 139 135-145 [place] [address]-09-15 09:31:00 Test Item Value Reference Range Interpretation Comments Potassium Lvl (test code = Potassium 4.2 3.5-5.1 Lvl) [address]09-15 09:31:00 Test Item Value Reference Range Interpretation Comments Chloride Lvl (test code = Chloride Lvl) 110 95-109 [place] [address]-09-15 09:31:00 Test Item Value Reference Range Interpretation Comments CO2 (test code = CO2) 23 24-32 [place] [address]-09-15 09:31:00 Test Item Value Reference Range Interpretation Comments Calcium Lvl (test code = Calcium Lvl) 8.9 8.5-10.5 [place] [address]-09-15 09:31:00 Test Item Value Reference Range Interpretation Comments Total Protein (test code = Total 6.1 6.4-8.4 Protein) [address]09-15 09:31:00 Test Item Value Reference Range Interpretation Comments Albumin Lvl (test code = Albumin Lvl) 2.7 3.5-5.0 [place] [address]-09-15 09:31:00 Test Item Value Reference Range Interpretation Comments ALT (test code = ALT) 17 See_Comment [Auto mated message] The system which ge nerated this result transmit sivakumar reference range : <=65. The reference range was not used to interpr et this result as jenelle l/abnormal. [place] [address]-09-15 09:31:00 Test Item Value Reference Range Interpretation Comments AST (test code = AST) 20 See_Comment [Auto mated message] The system which ge nerated this result transmit sivakumar reference range : <=37. The reference range was not used to interpr et this result as jenelle l/abnormal. [place] 766732-09-15 09:31:00 Test Item Value Reference Range Interpretation Comments Alk Phos (test code = Alk Phos) 121 39-136 [place] 766732-09-15 09:31:00 Test Item Value Reference Range Interpretation Comments Bili Total (test code = Bili Total) 2.1 0.2-1.3 [place] [address]-09-15 09:31:00 Test Item Value Reference Range Interpretation Comments AGAP (test code = AGAP) 10.2 10.0-20.0 [place] [address]-09-15 09:31:00 Test Item Value Reference Range Interpretation Comments B/C Ratio (test code = B/C Ratio) 30 1 6-25 [place] [address]-09-15 09:31:00 Test Item Value Reference Range Interpretation Comments Globulin (test code = Globulin) 3.4 2.7-4.2 [place] 766732-09-15 09:31:00 Test Item Value Reference Range Interpretation Comments A/G Ratio (test code = A/G Ratio) 0.8 1 0.7-1.6 [place] [address]-09-15 09:31:00 Test Item Value Reference Range Interpretation Comments eGFR (test code = eGFR) 83 [place] 417952-09-15 09:31:00 Test Item Value Reference Range Interpretation Comments WBC (test code = WBC) 20.6 3.7-10.4 [place] 417952-09-15 09:31:00 Test Item Value Reference Range Interpretation Comments RBC (test code = RBC) 2.45 4.70-6.10 [place] [address]-09-15 09:31:00 Test Item Value Reference Range Interpretation Comments Hgb (test code = Hgb) 8.9 14.0-18.0 [place] [address]-09-15 09:31:00 Test Item Value Reference Range Interpretation Comments Hct (test code = Hct) 26.3 42.0-54.0 [place] [address]-09-15 09:31:00 Test Item Value Reference Range Interpretation Comments MCV (test code = MCV) 107.4 80.0-94.0 [place] [address]-09-15 09:31:00 Test Item Value Reference Range Interpretation Comments MCH (test code = MCH) 36.2 pg 27.0-31.0 [facility] AliceMgnrlafBKPXNGPPBP2068-86-60 10:42:00 Test Item Value Reference Range Interpretation Comments Eosinophils (test code = 0.2 See_Comment [A utomated message] The Eosinophils) system which ge nerated this result tra nsmitted reference range : <=4.0. The reference r mirela was not used to int erpret this result as normal/abnormal . [facility] AliceDjqljykKXWFNVLRLT3658-70-83 10:42:00 Test Item Value Reference Range Interpretation Comments Eosinophils (test code = 0.2 See_Comment [A utomated message] The Eosinophils) system which ge nerated this result tra nsmitted reference range : <=4.0. The reference r mirela was not used to int erpret this result as normal/abnormal . [facility] AliceYzavfmxOBJKBRQCCX5739-02-11 10:42:00 Test Item Value Reference Range Interpretation Comments Eosinophils (test code = 0.2 See_Comment [A utomated message] The Eosinophils) system which ge nerated this result tra nsmitted reference range : <=4.0. The reference r mirela was not used to int erpret this result as normal/abnormal . [facility]2022-09-09 09:48:00 Test Item Value Reference Range Interpretation Comments MMA Qnt (test code = MMA Qnt) 281 [facility] JYKQTIF8533-38-78 09:48:00 Test Item Value Reference Range Interpretation Comments ABO/Rh (test code = ABO/Rh) O POS [facility] AEZREQJ2132-27-86 09:48:00 Test Item Value Reference Range Interpretation Comments Antibody Scrn (test Negative (06/24/22 4:48 code = Antibody Scrn) AM) [facility]2022-09-09 09:48:00 Test Item Value Reference Range Interpretation Comments MMA Qnt (test code = MMA Qnt) 281 [facility] [id number] 09:48:00 Test Item Value Reference Range Interpretation Comments ABO/Rh (test code = ABO/Rh) O POS [facility] BLPTMKS5875-06-16 09:48:00 Test Item Value Reference Range Interpretation Comments Antibody Scrn (test Negative (06/24/22 4:48 code = Antibody Scrn) AM) [facility] [id number] 09:48:00 Test Item Value Reference Range Interpretation Comments MMA Qnt (test code = MMA Qnt) 281 [facility] HLHMTXJ9918-18-10 09:48:00 Test Item Value Reference Range Interpretation Comments ABO/Rh (test code = ABO/Rh) O POS [facility] [id number] 09:48:00 Test Item Value Reference Range Interpretation Comments Antibody Scrn (test Negative (06/24/22 4:48 code = Antibody Scrn) AM) [facility] AlicePhslqeuXDIKTEQPHR4008-03-30 05:18:00 Test Item Value Reference Range Interpretation Comments Eosinophils # (test code 0.2 See_Comment [A utomated message] The = Eosinophils #) system [facility] generated this result tra nsmitted reference range : <=0.5. The reference r mirela was not used to int erpret this result as normal/abnormal . [facility] AliceNhludlcAAWLAKLWSR0069-70-51 05:18:00 Test Item Value Reference Range Interpretation Comments Eosinophils # (test code 0.2 See_Comment [A utomated message] The = Eosinophils #) system [employer] generated this result tra nsmitted reference range : <=0.5. The reference r mirela was not used to int erpret this result as normal/abnormal . [facility] AliceZzppqllEXFONAGKSW6032-86-18 05:18:00 Test Item Value Reference Range Interpretation Comments Eosinophils # (test code 0.2 See_Comment [A utomated message] The = Eosinophils #) system [facility] [employer] generated this result tra nsmitted reference range : <=0.5. The reference r mirela was not used to int erpret this result as normal/abnormal . [facility] AliceNfopkmsFIWRILOHTF6569-57-21 05:03:00 Test Item Value Reference Range Interpretation Comments Basophils # (test code 0.3 See_Comment [Aut omated message] The = Basophils #) system which generated this result tra nsmitted reference range : <=0.2. The reference r mirela was not used to int erpret this result as normal/abnormal . [facility] AliceQfbkdeeBMZVPCDFSM2586-79-76 05:03:00 Test Item Value Reference Range Interpretation Comments Basophils # (test code 0.3 See_Comment [Aut omated message] The = Basophils #) system which generated this result tra nsmitted reference range : <=0.2. The reference r mirela was not used to int erpret this result as normal/abnormal . [facility] AliceIeywzncTWSWLPUHFQ0336-91-97 05:03:00 Test Item Value Reference Range Interpretation Comments Basophils # (test code 0.3 See_Comment [Aut omated message] The = Basophils #) system which generated this result tra nsmitted reference range : <=0.2. The reference r mirela was not used to int erpret this result as normal/abnormal . [facility]2022-09-06 05:03:00 Test Item Value Reference Range Interpretation Comments Folate Lvl (test code = Folate Lvl) 16.6 [facility]2022-09-06 05:03:00 Test Item Value Reference Range Interpretation Comments Ferritin Lvl (test code = Ferritin Lvl) [address] [place], [place] [address]2022-09-06 05:03:00 Test Item Value Reference Range Interpretation Comments Vitamin B12 Lvl (test code = Vitamin 123 B12 Lvl) [facility]2022-09-06 05:03:00 Test Item Value Reference Range Interpretation Comments Folate Lvl (test code = Folate Lvl) 16.6 [facility]2022-09-06 05:03:00 Test Item Value Reference Range Interpretation Comments Ferritin Lvl (test code = Ferritin Lvl) [address] [place], [place] [address]2022-09-06 05:03:00 Test Item Value Reference Range Interpretation Comments Vitamin B12 Lvl (test code = Vitamin 123 B12 Lvl) [facility]2022-09-06 05:03:00 Test Item Value Reference Range Interpretation Comments Folate Lvl (test code = Folate Lvl) 16.6 [facility]2022-09-06 05:03:00 Test Item Value Reference Range Interpretation Comments Ferritin Lvl (test code = Ferritin Lvl) 309 [facility]276 [facility]2022-09-06 05:03:00 Test Item Value Reference Range Interpretation Comments Vitamin B12 Lvl (test code = Vitamin 123 B12 Lvl) [facility]2022-09-06 02:45:00 Test Item Value Reference Range Interpretation Comments Iron (test code = Iron) 37 [facility]2022-09-06 02:45:00 Test Item Value Reference Range Interpretation Comments TIBC (test code = TIBC) 147 [facility]2022-09-06 02:45:00 Test Item Value Reference Range Interpretation Comments % Satur Fe (test code = % Satur Fe) 25 [facility]2022-09-06 02:45:00 Test Item Value Reference Range Interpretation Comments Vitamin D, 25-OH, Total (test code = 40 Vitamin D, 25-OH, Total) [facility]2022-09-06 02:45:00 Test Item Value Reference Range Interpretation Comments Iron (test code = Iron) 37 [facility]2022-09-06 02:45:00 Test Item Value Reference Range Interpretation Comments TIBC (test code = TIBC) 147 [facility]2022-09-06 02:45:00 Test Item Value Reference Range Interpretation Comments % Satur Fe (test code = % Satur Fe) 25 [facility]2022-09-06 02:45:00 Test Item Value Reference Range Interpretation Comments Vitamin D, 25-OH, Total (test code = 40 Vitamin D, 25-OH, Total) [facility]2022-09-06 02:45:00 Test Item Value Reference Range Interpretation Comments Iron (test code = Iron) 37 [facility]2022-09-06 02:45:00 Test Item Value Reference Range Interpretation Comments TIBC (test code = TIBC) 147 [facility]2022-09-06 02:45:00 Test Item Value Reference Range Interpretation Comments % Satur Fe (test code = % Satur Fe) 25 [facility]2022-09-06 02:45:00 Test Item Value Reference Range Interpretation Comments Vitamin D, 25-OH, Total (test code = 40 Vitamin D, 25-OH, Total) [facility]2022-09-05 02:50:00 Test Item Value Reference Range Interpretation Comments Lactic Acid Lvl (test code = Lactic 3.1 0.5-2.2 Acid Lvl) [facility]2022-09-05 02:50:00 Test Item Value Reference Range Interpretation Comments Lactic Acid Lvl (test code = Lactic 3.1 0.5-2.2 Acid Lvl) [facility]2022-09-05 02:50:00 Test Item Value Reference Range Interpretation Comments Lactic Acid Lvl (test code = Lactic 3.1 0.5-2.2 Acid Lvl) [place] 766732-09-04 22:15:00 Test Item Value Reference Range Interpretation Comments Lactic Acid Lvl (test code = Lactic 4.5 0.5-2.2 Acid Lvl) [facility]2022-09-04 22:15:00 Test Item Value Reference Range Interpretation Comments Glucose Lvl (test code = Glucose Lvl) 135 70-99 [facility]2022-09-04 22:15:00 Test Item Value Reference Range Interpretation Comments BUN (test code = BUN) 46 7-22 [place] 766732-09-04 22:15:00 Test Item Value Reference Range Interpretation Comments Creatinine Lvl (test code = Creatinine 1.56 0.50-1.40 Lvl) [facility]2022-09-04 22:15:00 Test Item Value Reference Range Interpretation Comments Sodium Lvl (test code = Sodium Lvl) 140 135-145 [facility]2022-09-04 22:15:00 Test Item Value Reference Range Interpretation Comments Potassium Lvl (test code = Potassium 5.2 3.5-5.1 Lvl) [facility]2022-09-04 22:15:00 Test Item Value Reference Range Interpretation Comments Chloride Lvl (test code = Chloride Lvl) 110 95-109 [facility]2022-09-04 22:15:00 Test Item Value Reference Range Interpretation Comments CO2 (test code = CO2) 22 24-32 [place] 766732-09-04 22:15:00 Test Item Value Reference Range Interpretation Comments Calcium Lvl (test code = Calcium Lvl) 9.1 8.5-10.5 [place] 766732-09-04 22:15:00 Test Item Value Reference Range Interpretation Comments AGAP (test code = AGAP) 13.2 10.0-20.0 [place] 766732-09-04 22:15:00 Test Item Value Reference Range Interpretation Comments eGFR (test code = eGFR) 42 [place] 766732-09-04 22:15:00 Test Item Value Reference Range Interpretation Comments Lactic Acid Lvl (test code = Lactic 4.5 0.5-2.2 Acid Lvl) [place] 766732-09-04 22:15:00 Test Item Value Reference Range Interpretation Comments Glucose Lvl (test code = Glucose Lvl) 135 70-99 [place] 766732-09-04 22:15:00 Test Item Value Reference Range Interpretation Comments BUN (test code = BUN) 46 7-22 [place] 766732-09-04 22:15:00 Test Item Value Reference Range Interpretation Comments Creatinine Lvl (test code = Creatinine 1.56 0.50-1.40 Lvl) [place] 766732-09-04 22:15:00 Test Item Value Reference Range Interpretation Comments Sodium Lvl (test code = Sodium Lvl) 140 135-145 [place] 766732-09-04 22:15:00 Test Item Value Reference Range Interpretation Comments Potassium Lvl (test code = Potassium 5.2 3.5-5.1 Lvl) [place] 766732-09-04 22:15:00 Test Item Value Reference Range Interpretation Comments Chloride Lvl (test code = Chloride Lvl) 110 95-109 [place] 766732-09-04 22:15:00 Test Item Value Reference Range Interpretation Comments CO2 (test code = CO2) 22 24-32 [place] 766732-09-04 22:15:00 Test Item Value Reference Range Interpretation Comments Calcium Lvl (test code = Calcium Lvl) 9.1 8.5-10.5 [place] 766732-09-04 22:15:00 Test Item Value Reference Range Interpretation Comments AGAP (test code = AGAP) 13.2 10.0-20.0 [place] [address]-09-04 22:15:00 Test Item Value Reference Range Interpretation Comments eGFR (test code = eGFR) 42 [place] 766732-09-04 22:15:00 Test Item Value Reference Range Interpretation Comments Lactic Acid Lvl (test code = Lactic 4.5 0.5-2.2 Acid Lvl) [place] 766732-09-04 22:15:00 Test Item Value Reference Range Interpretation Comments Glucose Lvl (test code = Glucose Lvl) 135 70-99 [facility]2022-09-04 22:15:00 Test Item Value Reference Range Interpretation Comments BUN (test code = BUN) 46 7-22 [facility]2022-09-04 22:15:00 Test Item Value Reference Range Interpretation Comments Creatinine Lvl (test code = Creatinine 1.56 0.50-1.40 Lvl) [facility]2022-09-04 22:15:00 Test Item Value Reference Range Interpretation Comments Sodium Lvl (test code = Sodium Lvl) 140 135-145 [facility]2022-09-04 22:15:00 Test Item Value Reference Range Interpretation Comments Potassium Lvl (test code = Potassium 5.2 3.5-5.1 Lvl) [facility]2022-09-04 22:15:00 Test Item Value Reference Range Interpretation Comments Chloride Lvl (test code = Chloride Lvl) 110 95-109 [facility]2022-09-04 22:15:00 Test Item Value Reference Range Interpretation Comments CO2 (test code = CO2) 22 24-32 [facility]2022-09-04 22:15:00 Test Item Value Reference Range Interpretation Comments Calcium Lvl (test code = Calcium Lvl) 9.1 8.5-10.5 [facility]2022-09-04 22:15:00 Test Item Value Reference Range Interpretation Comments AGAP (test code = AGAP) 13.2 10.0-20.0 [facility]2022-09-04 22:15:00 Test Item Value Reference Range Interpretation Comments eGFR (test code = eGFR) 42 [facility] G[facility]77[facility]59 18:00:00 Test Item Value Reference Range Interpretation Comments HS Troponin I (test code = HS Troponin 7 I) [facility]2022-09-04 18:00:00 Test Item Value Reference Range Interpretation Comments Glucose Lvl (test code = Glucose Lvl) 128 70-99 [facility]2022-09-04 18:00:00 Test Item Value Reference Range Interpretation Comments BUN (test code = BUN) 43 7-22 [facility]2022-09-04 18:00:00 Test Item Value Reference Range Interpretation Comments Creatinine Lvl (test code = Creatinine 1.56 0.50-1.40 Lvl) [facility]2022-09-04 18:00:00 Test Item Value Reference Range Interpretation Comments Sodium Lvl (test code = Sodium Lvl) 139 135-145 [facility]2022-09-04 18:00:00 Test Item Value Reference Range Interpretation Comments Potassium Lvl (test code = Potassium 4.8 3.5-5.1 Lvl) [facility]2022-09-04 18:00:00 Test Item Value Reference Range Interpretation Comments Chloride Lvl (test code = Chloride Lvl) 109 95-109 [facility]2022-09-04 18:00:00 Test Item Value Reference Range Interpretation Comments CO2 (test code = CO2) 23 24-32 [place] 766732-09-04 18:00:00 Test Item Value Reference Range Interpretation Comments Calcium Lvl (test code = Calcium Lvl) 8.8 8.5-10.5 [facility]2022-09-04 18:00:00 Test Item Value Reference Range Interpretation Comments AGAP (test code = AGAP) 11.8 10.0-20.0 [facility]2022-09-04 18:00:00 Test Item Value Reference Range Interpretation Comments eGFR (test code = eGFR) 42 [facility]2022-09-04 18:00:00 Test Item Value Reference Range Interpretation Comments Magnesium Lvl (test code = Magnesium 2.0 1.8-2.4 Lvl) [facility]2022-09-04 18:00:00 Test Item Value Reference Range Interpretation Comments Phosphorus (test code = Phosphorus) 3.3 2.5-4.5 [place] 766732-09-04 18:00:00 Test Item Value Reference Range Interpretation Comments Lactic Acid Lvl (test code = Lactic 7.6 0.5-2.2 Acid Lvl) [facility] AliceAcftbyzHGEUYPKEJM7024-07-[facility] 18:00:00 Test Item Value Reference Range Interpretation Comments WBC (test code = WBC) 21.4 3.7-10.4 [place] 417952-09-04 18:00:00 Test Item Value Reference Range Interpretation Comments RBC (test code = RBC) 2.55 4.70-6.10 [place] 417952-09-04 18:00:00 Test Item Value Reference Range Interpretation Comments Hgb (test code = Hgb) 9.2 14.0-18.0 [facility]yenGPAPTEUAZA5543[facility]91-02 18:00:00 Test Item Value Reference Range Interpretation Comments Hct (test code = Hct) 27.7 42.0-54.0 [facility] HospitalYynaityTVZCRSECOU1276-43-21 18:00:00 Test Item Value Reference Range Interpretation Comments MCV (test code = MCV) 108.6 80.0-94.0 [facility] HospitalMjhclxxBKOBKYHZKI5498-22-64 18:00:00 Test Item Value Reference Range Interpretation Comments MCH (test code = MCH) 36.1 pg 27.0-31.0 [facility] HospitalSolisidSAOOIHNJWY7890-69-32 18:00:00 Test Item Value Reference Range Interpretation Comments MCHC (test code = MCHC) 33.3 32.0-36.0 [facility] HospitalFwxzdtaBTLKZXMTCL4786-29-99 18:00:00 Test Item Value Reference Range Interpretation Comments RDW (test code = RDW) 13.2 11.5-14.5 [facility] HospitalLoggolyQOXYWWQVZG9809-14-58 18:00:00 Test Item Value Reference Range Interpretation Comments Platelet (test code = Platelet) 195 133-450 [facility] HospitalNlxivqiENVWGGAPAK5011-77-78 18:00:00 Test Item Value Reference Range Interpretation Comments MPV (test code = MPV) 7.8 7.4-10.4 [facility] GVATQWU1933 18:00:00 Test Item Value Reference Range Interpretation Comments HS Troponin I (test code = HS Troponin 7 I) [facility] VQXKG4596-94-35 18:00:00 Test Item Value Reference Range Interpretation Comments Glucose Lvl (test code = Glucose Lvl) 128 70-99 [facility] OMXAX7237-08-40 18:00:00 Test Item Value Reference Range Interpretation Comments BUN (test code = BUN) 43 7-22 [facility]2022-09-04 18:00:00 Test Item Value Reference Range Interpretation Comments Creatinine Lvl (test code = Creatinine 1.56 0.50-1.40 Lvl) [facility] MWWGW0094-45-30 18:00:00 Test Item Value Reference Range Interpretation Comments Sodium Lvl (test code = Sodium Lvl) 139 135-145 [place] 766732-09-04 18:00:00 Test Item Value Reference Range Interpretation Comments Potassium Lvl (test code = Potassium 4.8 3.5-5.1 Lvl) [facility]2022-09-04 18:00:00 Test Item Value Reference Range Interpretation Comments Chloride Lvl (test code = Chloride Lvl) 109 95-109 [place] 766732-09-04 18:00:00 Test Item Value Reference Range Interpretation Comments CO2 (test code = CO2) 23 24-32 [place] 766732-09-04 18:00:00 Test Item Value Reference Range Interpretation Comments Calcium Lvl (test code = Calcium Lvl) 8.8 8.5-10.5 [place] 766732-09-04 18:00:00 Test Item Value Reference Range Interpretation Comments AGAP (test code = AGAP) 11.8 10.0-20.0 [place] 766732-09-04 18:00:00 Test Item Value Reference Range Interpretation Comments eGFR (test code = eGFR) 42 [place] 766732-09-04 18:00:00 Test Item Value Reference Range Interpretation Comments Magnesium Lvl (test code = Magnesium 2.0 1.8-2.4 Lvl) [facility]2022-09-04 18:00:00 Test Item Value Reference Range Interpretation Comments Phosphorus (test code = Phosphorus) 3.3 2.5-4.5 [facility]2022-09-04 18:00:00 Test Item Value Reference Range Interpretation Comments Lactic Acid Lvl (test code = Lactic 7.6 0.5-2.2 Acid Lvl) [place] 417952-09-04 18:00:00 Test Item Value Reference Range Interpretation Comments WBC (test code = WBC) 21.4 3.7-10.4 [place] 417952-09-04 18:00:00 Test Item Value Reference Range Interpretation Comments RBC (test code = RBC) 2.55 4.70-6.10 [place] 417952-09-04 18:00:00 Test Item Value Reference Range Interpretation Comments Hgb (test code = Hgb) 9.2 14.0-18.0 [address]09-04 18:00:00 Test Item Value Reference Range Interpretation Comments Hct (test code = Hct) 27.7 42.0-54.0 [facility] AliceWzvnqoiWMSDFINDXY4062-03-06 18:00:00 Test Item Value Reference Range Interpretation Comments MCV (test code = MCV) 108.6 80.0-94.0 [facility] HospitalLkksvvwSPXEBYYACU3989-95-92 18:00:00 Test Item Value Reference Range Interpretation Comments MCH (test code = MCH) 36.1 pg 27.0-31.0 [facility] HospitalMpuvmviOMAPMREBEJ4669-22-21 18:00:00 Test Item Value Reference Range Interpretation Comments MCHC (test code = MCHC) 33.3 32.0-36.0 [facility] AliceVjaqeeuWPUNMGAWNM8840-56-04 18:00:00 Test Item Value Reference Range Interpretation Comments RDW (test code = RDW) 13.2 11.5-14.5 [facility] AliceAejljufBAQKERMPLH5009-84-82 18:00:00 Test Item Value Reference Range Interpretation Comments Platelet (test code = Platelet) 195 133-450 [facility] AlicePvdonjdWZOQPJHVWG6600-87-55 18:00:00 Test Item Value Reference Range Interpretation Comments MPV (test code = MPV) 7.8 7.4-10.4 [facility] QYNKTZH2869-77-70 18:00:00 Test Item Value Reference Range Interpretation Comments HS Troponin I (test code = HS Troponin 7 I) [facility]2022-09-04 18:00:00 Test Item Value Reference Range Interpretation Comments Glucose Lvl (test code = Glucose Lvl) 128 70-99 [facility]2022-09-04 18:00:00 Test Item Value Reference Range Interpretation Comments BUN (test code = BUN) 43 7-22 [facility]2022-09-04 18:00:00 Test Item Value Reference Range Interpretation Comments Creatinine Lvl (test code = Creatinine 1.56 0.50-1.40 Lvl) [facility]2022-09-04 18:00:00 Test Item Value Reference Range Interpretation Comments Sodium Lvl (test code = Sodium Lvl) 139 135-145 [facility] [id number] 18:00:00 Test Item Value Reference Range Interpretation Comments Potassium Lvl (test code = Potassium 4.8 3.5-5.1 Lvl) [facility]2022-09-04 18:00:00 Test Item Value Reference Range Interpretation Comments Chloride Lvl (test code = Chloride Lvl) 109 95-109 [facility]2022-09-04 18:00:00 Test Item Value Reference Range Interpretation Comments CO2 (test code = CO2) 23 24-32 [place] 766732-09-04 18:00:00 Test Item Value Reference Range Interpretation Comments Calcium Lvl (test code = Calcium Lvl) 8.8 8.5-10.5 [place] 766732-09-04 18:00:00 Test Item Value Reference Range Interpretation Comments AGAP (test code = AGAP) 11.8 10.0-20.0 [place] 766732-09-04 18:00:00 Test Item Value Reference Range Interpretation Comments eGFR (test code = eGFR) 42 [place] 766732-09-04 18:00:00 Test Item Value Reference Range Interpretation Comments Magnesium Lvl (test code = Magnesium 2.0 1.8-2.4 Lvl) [place] 766732-09-04 18:00:00 Test Item Value Reference Range Interpretation Comments Phosphorus (test code = Phosphorus) 3.3 2.5-4.5 [place] 766732-09-04 18:00:00 Test Item Value Reference Range Interpretation Comments Lactic Acid Lvl (test code = Lactic 7.6 0.5-2.2 Acid Lvl) [place] 417952-09-04 18:00:00 Test Item Value Reference Range Interpretation Comments WBC (test code = WBC) 21.4 3.7-10.4 [place] 417952-09-04 18:00:00 Test Item Value Reference Range Interpretation Comments RBC (test code = RBC) 2.55 4.70-6.10 [place] 417952-09-04 18:00:00 Test Item Value Reference Range Interpretation Comments Hgb (test code = Hgb) 9.2 14.0-18.0 [place] 417952-09-04 18:00:00 Test Item Value Reference Range Interpretation Comments Hct (test code = Hct) 27.7 42.0-54.0 [place] 417952-09-04 18:00:00 Test Item Value Reference Range Interpretation Comments MCV (test code = MCV) 108.6 80.0-94.0 [place] [address]-09-04 18:00:00 Test Item Value Reference Range Interpretation Comments MCH (test code = MCH) 36.1 pg 27.0-31.0 [place] [address]-09-04 18:00:00 Test Item Value Reference Range Interpretation Comments MCHC (test code = MCHC) 33.3 32.0-36.0 [place] 417952-09-04 18:00:00 Test Item Value Reference Range Interpretation Comments RDW (test code = RDW) 13.2 11.5-14.5 [place] [address]-09-04 18:00:00 Test Item Value Reference Range Interpretation Comments Platelet (test code = Platelet) 195 133-450 [place] 417952-09-04 18:00:00 Test Item Value Reference Range Interpretation Comments MPV (test code = MPV) 7.8 7.4-10.4 [place] 766732-09-04 05:02:00 Test Item Value Reference Range Interpretation Comments Glucose Lvl (test code = Glucose Lvl) 124 70-99 [place] 766732-09-04 05:02:00 Test Item Value Reference Range Interpretation Comments BUN (test code = BUN) 43 7-22 [place] 766732-09-04 05:02:00 Test Item Value Reference Range Interpretation Comments Creatinine Lvl (test code = Creatinine 1.67 0.50-1.40 Lvl) [place] 766732-09-04 05:02:00 Test Item Value Reference Range Interpretation Comments Sodium Lvl (test code = Sodium Lvl) 140 135-145 [place] 766732-09-04 05:02:00 Test Item Value Reference Range Interpretation Comments Potassium Lvl (test code = Potassium 5.0 3.5-5.1 Lvl) [place] 766732-09-04 05:02:00 Test Item Value Reference Range Interpretation Comments Chloride Lvl (test code = Chloride Lvl) 111 95-109 [place] 766732-09-04 05:02:00 Test Item Value Reference Range Interpretation Comments CO2 (test code = CO2) 24 24-32 [facility]2022-09-04 05:02:00 Test Item Value Reference Range Interpretation Comments Calcium Lvl (test code = Calcium Lvl) 8.2 8.5-10.5 [facility]2022-09-04 05:02:00 Test Item Value Reference Range Interpretation Comments AGAP (test code = AGAP) 10.0 10.0-20.0 [facility]2022-09-04 05:02:00 Test Item Value Reference Range Interpretation Comments eGFR (test code = eGFR) 39 [facility] AliceNqbfrplYKHANCLFXS9483-06-63 05:02:00 Test Item Value Reference Range Interpretation Comments WBC (test code = WBC) 17.6 3.7-10.4 [facility] AliceBhjdyxnMLFKGLUIDM2405-47-39 05:02:00 Test Item Value Reference Range Interpretation Comments RBC (test code = RBC) 2.70 4.70-6.10 [facility] AliceJeaigwiBOVSHAFHKV5694-66-15 05:02:00 Test Item Value Reference Range Interpretation Comments Hgb (test code = Hgb) 9.8 14.0-18.0 [facility] AliceVhpxjsbIFVOVNLHIK8255-49-48 05:02:00 Test Item Value Reference Range Interpretation Comments Hct (test code = Hct) 29.0 42.0-54.0 [facility] AliceNbubpxbWCMVMBEGWS7281-21-34 05:02:00 Test Item Value Reference Range Interpretation Comments MCV (test code = MCV) 107.5 80.0-94.0 [facility] AliceKbuqqhqAXXDEGGGPX0739-57-36 05:02:00 Test Item Value Reference Range Interpretation Comments MCH (test code = MCH) 36.4 pg 27.0-31.0 [facility] AliceJdonktsASDFBOKJZQ3245-86-85 05:02:00 Test Item Value Reference Range Interpretation Comments MCHC (test code = MCHC) 33.9 32.0-36.0 [facility] AliceJkyncncHNVCUBDIZU1848-82-88 05:02:00 Test Item Value Reference Range Interpretation Comments RDW (test code = RDW) 13.0 11.5-14.5 [facility] AliceIlzvfrzQIDGQLIWWS5374-40-47 05:02:00 Test Item Value Reference Range Interpretation Comments Platelet (test code = Platelet) 176 133-450 [facility] AliceXveozrnJPRIRTCNOD3470-72-98 05:02:00 Test Item Value Reference Range Interpretation Comments MPV (test code = MPV) 7.6 7.4-10.4 [facility] AliceGpdneyiDTNMJFWALW3596-16-54 05:02:00 Test Item Value Reference Range Interpretation Comments Segs (test code = Segs) 91.5 45.0-75.0 [facility] AlicePfpzywoCVXNLGVOKG7788-31-00 05:02:00 Test Item Value Reference Range Interpretation Comments Lymphocytes (test code = Lymphocytes) 2.5 20.0-40.0 [place] 417952-09-04 05:02:00 Test Item Value Reference Range Interpretation Comments Monocytes (test code = Monocytes) 5.8 2.0-12.0 [facility] AliceCssjwfbYKKDASPWTK0032-72-32 05:02:00 Test Item Value Reference Range Interpretation Comments Basophils (test code = 0.2 See_Comment [Aut omated message] The Basophils) system which ge nerated this result tra nsmitted reference range : <=1.0. The reference r mirela was not used to int erpret this result as normal/abnormal . [facility] AliceUpaghflTMGSVEGSRL3766-20-26 05:02:00 Test Item Value Reference Range Interpretation Comments Neutrophils # (test code = Neutrophils 16.1 1.5-8.1 #) [facility] AliceQibhndxXNMFKCTQUK1530-12-03 05:02:00 Test Item Value Reference Range Interpretation Comments Lymphocytes # (test code = Lymphocytes 0.4 1.0-5.5 #) [facility] AliceIdzqjxqGKWRBTMCQL8325-08-63 05:02:00 Test Item Value Reference Range Interpretation Comments Monocytes # (test code 1.0 See_Comment [Aut omated message] The = Monocytes #) system which generated this result tra nsmitted reference range : <=0.8. The reference r mirela was not used to int erpret this result as normal/abnormal . [facility] AliceKftrhdjIZQPJSDGXY3267-53-74 05:02:00 Test Item Value Reference Range Interpretation Comments Macrocyte (test code = 2+ *ABN*(06/19/22 Macrocyte) 12:02 AM) [facility]2022-09-04 05:02:00 Test Item Value Reference Range Interpretation Comments Glucose Lvl (test code = Glucose Lvl) 124 70-99 [facility]2022-09-04 05:02:00 Test Item Value Reference Range Interpretation Comments BUN (test code = BUN) 43 7-22 [place] 766732-09-04 05:02:00 Test Item Value Reference Range Interpretation Comments Creatinine Lvl (test code = Creatinine 1.67 0.50-1.40 Lvl) [facility]2022-09-04 05:02:00 Test Item Value Reference Range Interpretation Comments Sodium Lvl (test code = Sodium Lvl) 140 135-145 [place] 766732-09-04 05:02:00 Test Item Value Reference Range Interpretation Comments Potassium Lvl (test code = Potassium 5.0 3.5-5.1 Lvl) [place] 766732-09-04 05:02:00 Test Item Value Reference Range Interpretation Comments Chloride Lvl (test code = Chloride Lvl) 111 95-109 [place] 766732-09-04 05:02:00 Test Item Value Reference Range Interpretation Comments CO2 (test code = CO2) 24 24-32 [place] 766732-09-04 05:02:00 Test Item Value Reference Range Interpretation Comments Calcium Lvl (test code = Calcium Lvl) 8.2 8.5-10.5 [facility]2022-09-04 05:02:00 Test Item Value Reference Range Interpretation Comments AGAP (test code = AGAP) 10.0 10.0-20.0 [facility]2022-09-04 05:02:00 Test Item Value Reference Range Interpretation Comments eGFR (test code = eGFR) 39 [facility] AliceGucezedFMGAGUWOEN8527-94-98 05:02:00 Test Item Value Reference Range Interpretation Comments WBC (test code = WBC) 17.6 3.7-10.4 [place] 417952-09-04 05:02:00 Test Item Value Reference Range Interpretation Comments RBC (test code = RBC) 2.70 4.70-6.10 [place] 417952-09-04 05:02:00 Test Item Value Reference Range Interpretation Comments Hgb (test code = Hgb) 9.8 14.0-18.0 [place] [address]-09-04 05:02:00 Test Item Value Reference Range Interpretation Comments Hct (test code = Hct) 29.0 42.0-54.0 [place] 417952-09-04 05:02:00 Test Item Value Reference Range Interpretation Comments MCV (test code = MCV) 107.5 80.0-94.0 [facility] AliceAqaeuyfZRFNIYYNUK2894-18-22 05:02:00 Test Item Value Reference Range Interpretation Comments MCH (test code = MCH) 36.4 pg 27.0-31.0 [facility] AliceBpgmwzfKALKUOVMQU0224-32-97 05:02:00 Test Item Value Reference Range Interpretation Comments MCHC (test code = MCHC) 33.9 32.0-36.0 [facility] AliceGpirqbcETTTUXOAGN7639-76-02 05:02:00 Test Item Value Reference Range Interpretation Comments RDW (test code = RDW) 13.0 11.5-14.5 [facility] AliceRhcnblnLXXHAQHWHA5670-68-22 05:02:00 Test Item Value Reference Range Interpretation Comments Platelet (test code = Platelet) 176 133-450 [facility] AliceArclorzUDAQOSPVQW9580-99-46 05:02:00 Test Item Value Reference Range Interpretation Comments MPV (test code = MPV) 7.6 7.4-10.4 [facility] AliceZkeitbfPDAYWFFQQO2004-59-13 05:02:00 Test Item Value Reference Range Interpretation Comments Segs (test code = Segs) 91.5 45.0-75.0 [facility] AliceYfgskjeYKNIIGFOGS0480-95-93 05:02:00 Test Item Value Reference Range Interpretation Comments Lymphocytes (test code = Lymphocytes) 2.5 20.0-40.0 [facility] AliceTsjioihZHQFWANFGV0640-74-89 05:02:00 Test Item Value Reference Range Interpretation Comments Monocytes (test code = Monocytes) 5.8 2.0-12.0 [facility] AliceJrumkaxCPJXQXSXUO5177-42-50 05:02:00 Test Item Value Reference Range Interpretation Comments Basophils (test code = 0.2 See_Comment [Aut omated message] The Basophils) system which ge nerated this result tra nsmitted reference range : <=1.0. The reference r mirela was not used to int erpret this result as normal/abnormal . [facility] AliceLmtxdovZNNQMFZFJY5647-96-52 05:02:00 Test Item Value Reference Range Interpretation Comments Neutrophils # (test code = Neutrophils 16.1 1.5-8.1 #) [facility] AliceXkmlodtXZRUEZIUHR9486-67-85 05:02:00 Test Item Value Reference Range Interpretation Comments Lymphocytes # (test code = Lymphocytes 0.4 1.0-5.5 #) [facility] AliceTsqhoslXXXWMDSKTR1873-70-50 05:02:00 Test Item Value Reference Range Interpretation Comments Monocytes # (test code 1.0 See_Comment [Aut omated message] The = Monocytes #) system which generated this result tra nsmitted reference range : <=0.8. The reference r mirela was not used to int erpret this result as normal/abnormal . [facility] AliceLoknkmyHNFOMTGPQC5845-21-21 05:02:00 Test Item Value Reference Range Interpretation Comments Macrocyte (test code = 2+ *ABN*(06/19/22 Macrocyte) 12:02 AM) [place] 766732-09-04 05:02:00 Test Item Value Reference Range Interpretation Comments Glucose Lvl (test code = Glucose Lvl) 124 70-99 [place] 766732-09-04 05:02:00 Test Item Value Reference Range Interpretation Comments BUN (test code = BUN) 43 7-22 [place] 766732-09-04 05:02:00 Test Item Value Reference Range Interpretation Comments Creatinine Lvl (test code = Creatinine 1.67 0.50-1.40 Lvl) [facility]2022-09-04 05:02:00 Test Item Value Reference Range Interpretation Comments Sodium Lvl (test code = Sodium Lvl) 140 135-145 [facility]2022-09-04 05:02:00 Test Item Value Reference Range Interpretation Comments Potassium Lvl (test code = Potassium 5.0 3.5-5.1 Lvl) [facility]2022-09-04 05:02:00 Test Item Value Reference Range Interpretation Comments Chloride Lvl (test code = Chloride Lvl) 111 95-109 [place] 766732-09-04 05:02:00 Test Item Value Reference Range Interpretation Comments CO2 (test code = CO2) 24 24-32 [place] 766732-09-04 05:02:00 Test Item Value Reference Range Interpretation Comments Calcium Lvl (test code = Calcium Lvl) 8.2 8.5-10.5 [place] 766732-09-04 05:02:00 Test Item Value Reference Range Interpretation Comments AGAP (test code = AGAP) 10.0 10.0-20.0 [facility]2022-09-04 05:02:00 Test Item Value Reference Range Interpretation Comments eGFR (test code = eGFR) 39 [facility] AliceCkhkkjhPFMNRGZFFC9814-21-86 05:02:00 Test Item Value Reference Range Interpretation Comments WBC (test code = WBC) 17.6 3.7-10.4 [facility] AliceOmqeuvrBAQQOSNNDX1356-19-13 05:02:00 Test Item Value Reference Range Interpretation Comments RBC (test code = RBC) 2.70 4.70-6.10 [facility] AliceNoqtdsnICKUDKRRIU6564-27-64 05:02:00 Test Item Value Reference Range Interpretation Comments Hgb (test code = Hgb) 9.8 14.0-18.0 [facility] AliceRwbogscOPELMEJTCE6302-59-35 05:02:00 Test Item Value Reference Range Interpretation Comments Hct (test code = Hct) 29.0 42.0-54.0 [facility] AliceNgvddjtMUNWFFRRYP8865-33-11 05:02:00 Test Item Value Reference Range Interpretation Comments MCV (test code = MCV) 107.5 80.0-94.0 [facility] AliceGsjvebcWEIJGFYGNT7916-84-24 05:02:00 Test Item Value Reference Range Interpretation Comments MCH (test code = MCH) 36.4 pg 27.0-31.0 [facility] AliceSisvsbhNUINVVVDBI0645-98-15 05:02:00 Test Item Value Reference Range Interpretation Comments MCHC (test code = MCHC) 33.9 32.0-36.0 [facility] AliceXnsqgczSKXPFGAVJY4085-79-61 05:02:00 Test Item Value Reference Range Interpretation Comments RDW (test code = RDW) 13.0 11.5-14.5 [facility] AliceAuzbpntKCVLPTOZIR1515-83-87 05:02:00 Test Item Value Reference Range Interpretation Comments Platelet (test code = Platelet) 176 133-450 [facility] AliceJaogdmrIPXDFCYAVY7270-64-65 05:02:00 Test Item Value Reference Range Interpretation Comments MPV (test code = MPV) 7.6 7.4-10.4 [facility] AliceBlaeqdvHYFHUZYUFE1275-75-05 05:02:00 Test Item Value Reference Range Interpretation Comments Segs (test code = Segs) 91.5 45.0-75.0 [facility] AliceMalhpsoQTAEWJIZRG3370-48-87 05:02:00 Test Item Value Reference Range Interpretation Comments Lymphocytes (test code = Lymphocytes) 2.5 20.0-40.0 [facility]YlczjzhCPRHLXJLEB9767-43-34 05:02:00 Test Item Value Reference Range Interpretation Comments Monocytes (test code = Monocytes) 5.8 2.0-12.0 [facility] AliceSxrgfgmZYGPULJJOZ4196-75-81 05:02:00 Test Item Value Reference Range Interpretation Comments Basophils (test code = 0.2 See_Comment [Aut omated message] The Basophils) system which ge nerated this result tra nsmitted reference range : <=1.0. The reference r mirela was not used to int erpret this result as normal/abnormal . [facility] AliceUbdtychNIZFFINYMN3528-97-05 05:02:00 Test Item Value Reference Range Interpretation Comments Neutrophils # (test code = Neutrophils 16.1 1.5-8.1 #) [facility] AliceEnhjqebWPYOAPWSPX2957-96-87 05:02:00 Test Item Value Reference Range Interpretation Comments Lymphocytes # (test code = Lymphocytes 0.4 1.0-5.5 #) [facility] AliceJtvvqjtQJZXPGWYZS9866-99-71 05:02:00 Test Item Value Reference Range Interpretation Comments Monocytes # (test code 1.0 See_Comment [Aut omated message] The = Monocytes #) system which generated this result tra nsmitted reference range : <=0.8. The reference r mirela was not used to int erpret this result as normal/abnormal . [facility] AliceIbexwioXMUWEQFFTF0833-66-07 05:02:00 Test Item Value Reference Range Interpretation Comments Macrocyte (test code = 2+ *ABN*(06/19/22 Macrocyte) 12:02 AM) [facility]Connect[facility] NXEYZNY0936-93-00 18:40:00 Test Item Value Reference Range Interpretation Comments HS Troponin I (test code = HS Troponin 10 I) [facility] CenterContraqerSA[facility] JDYQSJJ7674-55-62 18:40:00 Test Item Value Reference Range Interpretation Comments HS Troponin I (test code = HS Troponin 10 I) [facility] PASAPJZ4025-15-36 18:40:00 Test Item Value Reference Range Interpretation Comments HS Troponin I (test code = HS Troponin 10 I) [facility] CenterCorrigo XBYUJJE2288-22-94 13:09:00 Test Item Value Reference Range Interpretation Comments ABO/Rh (test code = ABO/Rh) O POS [facility] YMZHBYV2647-63-81 13:09:00 Test Item Value Reference Range Interpretation Comments Antibody Scrn (test Negative (06/18/22 8:09 code = Antibody Scrn) AM) [facility] HXUEFGM3659-81-64 13:09:00 Test Item Value Reference Range Interpretation Comments ABO/Rh (test code = ABO/Rh) O POS [facility] FWNKLAX6015-87-51 13:09:00 Test Item Value Reference Range Interpretation Comments Antibody Scrn (test Negative (06/18/22 8:09 code = Antibody Scrn) AM) [facility] MJYELSM8644-30-46 13:09:00 Test Item Value Reference Range Interpretation Comments ABO/Rh (test code = ABO/Rh) O POS [facility] BHEWYFJ0292-62-17 13:09:00 Test Item Value Reference Range Interpretation Comments Antibody Scrn (test Negative (06/18/22 8:09 code = Antibody Scrn) AM) [facility] AtlantaDywwsccBZFCIKHHYN2420-59-90 12:36:00 Test Item Value Reference Range Interpretation Comments Coronavirus (COVID-19) Not Detected (06/18/22 MANASA (test code = 7:36 AM) Coronavirus (COVID-19) MANASA) [facility] AtlantaTcmuulhPSWFVQRVDO3579-51-69 12:36:00 Test Item Value Reference Range Interpretation Comments Coronavirus (COVID-19) Not Detected (06/18/22 MANASA (test code = 7:36 AM) Coronavirus (COVID-19) MANASA) [facility] AtlantaIfmtbtrVEBQOWTQCO6602-01-74 12:36:00 Test Item Value Reference Range Interpretation Comments Coronavirus (COVID-19) Not Detected (06/18/22 MANASA (test code = 7:36 AM) Coronavirus (COVID-19) MANASA) [facility] AND [id number] 11:10:00 Test Item Value Reference Range Interpretation Comments UA Sq Epi (test code = UA Sq Occasional /LPF Epi) [facility] AND [id number] 11:10:00 Test Item Value Reference Range Interpretation Comments UA WBC (test code = 1 See_Comment [Automa sivakumar message] The UA WBC) system which ge nerated this result transmit sivakumar reference range : <=5. The reference range was not used to interpr et this result as jenelle l/abnormal. [facility] [id number] 11:10:00 Test Item Value Reference Range Interpretation Comments UA RBC (test code = 1 See_Comment [Automa sivakumar message] The UA RBC) system which ge nerated this result transmit sivakumar reference range : <=2. The reference range was not used to interpr et this result as jenelle l/abnormal. [facility] [id number] 11:10:00 Test Item Value Reference Range Interpretation Comments UA Mucus (test code = UA Mucus) Few /LPF [facility] [id number] 11:10:00 Test Item Value Reference Range Interpretation Comments UA Hyal Cast (test 5 See_Comment [Automat ed message] The code = UA Hyal Cast) system which generated this result transmit sivakumar reference range : <=2. The reference range was not used to interpr et this result as jenelle l/abnormal. [facility] [id number] 11:10:00 Test Item Value Reference Range Interpretation Comments UA Color (test code = [place] *ABN*(06/18/22 UA Color) 6:10 AM) [facility] AND [id number] 11:10:00 Test Item Value Reference Range Interpretation Comments UA Turbidity (test code = Clear (06/18/22 6:10 UA Turbidity) AM) [facility] AND [id number] 11:10:00 Test Item Value Reference Range Interpretation Comments UA Spec Grav (test >=1.030 *ABN*(06/18/22 code = UA Spec Grav) 6:10 AM) [facility] AND [id number] 11:10:00 Test Item Value Reference Range Interpretation Comments UA pH (test code = UA pH) 6.0 1 5.0-8.0 [facility] [id number] 11:10:00 Test Item Value Reference Range Interpretation Comments UA Protein (test code Negative (06/18/22 6:10 = UA Protein) AM) [facility] AND [id number] 11:10:00 Test Item Value Reference Range Interpretation Comments UA Glucose (test code Negative (06/18/22 6:10 = UA Glucose) AM) [facility] AND [id number] 11:10:00 Test Item Value Reference Range Interpretation Comments UA Ketones (test code = Trace *ABN*(06/18/22 UA Ketones) 6:10 AM) [facility] [id number] 11:10:00 Test Item Value Reference Range Interpretation Comments UA Bili (test code = Small *ABN*(06/18/22 6:10 UA Bili) AM) [facility] [id number] 11:10:00 Test Item Value Reference Range Interpretation Comments UA Blood (test code = Negative (06/18/22 6:10 UA Blood) AM) [facility] [id number] 11:10:00 Test Item Value Reference Range Interpretation Comments UA Urobilinogen (test code = UA 0.2 0.1-1.0 Urobilinogen) [facility] AND [id number] 11:10:00 Test Item Value Reference Range Interpretation Comments UA Nitrite (test code Negative (06/18/22 6:10 = UA Nitrite) AM) [facility] AND [id number] 11:10:00 Test Item Value Reference Range Interpretation Comments UA Leuk Est (test Negative (06/18/22 6:10 code = UA Leuk Est) AM) [facility] AND [id number] 11:10:00 Test Item Value Reference Range Interpretation Comments UA Sq Epi (test code = UA Sq Occasional /LPF Epi) [facility] AND [id number] 11:10:00 Test Item Value Reference Range Interpretation Comments UA WBC (test code = 1 See_Comment [Automa sivakumar message] The UA WBC) system which ge nerated this result transmit sivakumar reference range : <=5. The reference range was not used to interpr et this result as jenelle l/abnormal. [facility] AND [id number] 11:10:00 Test Item Value Reference Range Interpretation Comments UA RBC (test code = 1 See_Comment [Automa sivakumar message] The UA RBC) system which ge nerated this result transmit sivakumar reference range : <=2. The reference range was not used to interpr et this result as jenelle l/abnormal. [facility] [id number] 11:10:00 Test Item Value Reference Range Interpretation Comments UA Mucus (test code = UA Mucus) Few /LPF [facility] AND [id number] 11:10:00 Test Item Value Reference Range Interpretation Comments UA Hyal Cast (test 5 See_Comment [Automat ed message] The code = UA Hyal Cast) system which generated this result transmit sivakumar reference range : <=2. The reference range was not used to interpr et this result as jenelle l/abnormal. [facility] AND [id number] 11:10:00 Test Item Value Reference Range Interpretation Comments UA Color (test code = [place] *ABN*(06/18/22 UA Color) 6:10 AM) [facility] AND [id number] 11:10:00 Test Item Value Reference Range Interpretation Comments UA Turbidity (test code = Clear (06/18/22 6:10 UA Turbidity) AM) [facility] AND [id number] 11:10:00 Test Item Value Reference Range Interpretation Comments UA Spec Grav (test >=1.030 *ABN*(06/18/22 code = UA Spec Grav) 6:10 AM) [facility] AND [id number] 11:10:00 Test Item Value Reference Range Interpretation Comments UA pH (test code = UA pH) 6.0 1 5.0-8.0 [facility] AND [id number] 11:10:00 Test Item Value Reference Range Interpretation Comments UA Protein (test code Negative (06/18/22 6:10 = UA Protein) AM) [facility] AND [id number] 11:10:00 Test Item Value Reference Range Interpretation Comments UA Glucose (test code Negative (06/18/22 6:10 = UA Glucose) AM) [facility] AND [id number] 11:10:00 Test Item Value Reference Range Interpretation Comments UA Ketones (test code = Trace *ABN*(06/18/22 UA Ketones) 6:10 AM) [facility] AND [id number] 11:10:00 Test Item Value Reference Range Interpretation Comments UA Bili (test code = Small *ABN*(06/18/22 6:10 UA Bili) AM) [facility] AND [id number] 11:10:00 Test Item Value Reference Range Interpretation Comments UA Blood (test code = Negative (06/18/22 6:10 UA Blood) AM) [facility] AND [id number] 11:10:00 Test Item Value Reference Range Interpretation Comments UA Urobilinogen (test code = UA 0.2 0.1-1.0 Urobilinogen) [facility] AND [id number] 11:10:00 Test Item Value Reference Range Interpretation Comments UA Nitrite (test code Negative (06/18/22 6:10 = UA Nitrite) AM) [facility] AND [id number] 11:10:00 Test Item Value Reference Range Interpretation Comments UA Leuk Est (test Negative (06/18/22 6:10 code = UA Leuk Est) AM) [facility] AND [id number] 11:10:00 Test Item Value Reference Range Interpretation Comments UA Sq Epi (test code = UA Sq Occasional /LPF Epi) [facility] AND [id number] 11:10:00 Test Item Value Reference Range Interpretation Comments UA WBC (test code = 1 See_Comment [Automa sivakumar message] The UA WBC) system which ge nerated this result transmit sivakumar reference range : <=5. The reference range was not used to interpr et this result as jenelle l/abnormal. [facility] [id number] 11:10:00 Test Item Value Reference Range Interpretation Comments UA RBC (test code = 1 See_Comment [Automa sivakumar message] The UA RBC) system which ge nerated this result transmit sivakumar reference range : <=2. The reference range was not used to interpr et this result as jenelle l/abnormal. [facility] AND [id number] 11:10:00 Test Item Value Reference Range Interpretation Comments UA Mucus (test code = UA Mucus) Few /LPF [facility] AND [id number] 11:10:00 Test Item Value Reference Range Interpretation Comments UA Hyal Cast (test 5 See_Comment [Automat ed message] The code = UA Hyal Cast) system which generated this result transmit sivakumar reference range : <=2. The reference range was not used to interpr et this result as jenelle l/abnormal. [facility] AND [id number] 11:10:00 Test Item Value Reference Range Interpretation Comments UA Color (test code = [place] *ABN*(06/18/22 UA Color) 6:10 AM) [facility] AND [id number] 11:10:00 Test Item Value Reference Range Interpretation Comments UA Turbidity (test code = Clear (06/18/22 6:10 UA Turbidity) AM) [facility] AND [id number] 11:10:00 Test Item Value Reference Range Interpretation Comments UA Spec Grav (test >=1.030 *ABN*(06/18/22 code = UA Spec Grav) 6:10 AM) [facility] AND [id number] 11:10:00 Test Item Value Reference Range Interpretation Comments UA pH (test code = UA pH) 6.0 1 5.0-8.0 [facility] AND [id number] 11:10:00 Test Item Value Reference Range Interpretation Comments UA Protein (test code Negative (06/18/22 6:10 = UA Protein) AM) [facility] AND [id number] 11:10:00 Test Item Value Reference Range Interpretation Comments UA Glucose (test code Negative (06/18/22 6:10 = UA Glucose) AM) [facility] AND [id number] 11:10:00 Test Item Value Reference Range Interpretation Comments UA Ketones (test code = Trace *ABN*(06/18/22 UA Ketones) 6:10 AM) [facility] AND [id number] 11:10:00 Test Item Value Reference Range Interpretation Comments UA Bili (test code = Small *ABN*(06/18/22 6:10 UA Bili) AM) [facility] AND [id number] 11:10:00 Test Item Value Reference Range Interpretation Comments UA Blood (test code = Negative (06/18/22 6:10 UA Blood) AM) [facility] AND [id number] 11:10:00 Test Item Value Reference Range Interpretation Comments UA Urobilinogen (test code = UA 0.2 0.1-1.0 Urobilinogen) [facility] AND [id number] 11:10:00 Test Item Value Reference Range Interpretation Comments UA Nitrite (test code Negative (06/18/22 6:10 = UA Nitrite) AM) [facility] AND [id number] 11:10:00 Test Item Value Reference Range Interpretation Comments UA Leuk Est (test Negative (06/18/22 6:10 code = UA Leuk Est) AM) [id number] 10:10:00 Test Item Value Reference Range Interpretation Comments ACT (TEG) Rapid (test code = ACT (TEG) 105 s 86-118 Rapid) [facility] [id number] 10:10:00 Test Item Value Reference Range Interpretation Comments Split Point Rapid (test code = Split 0.3 min Point Rapid) [facility] [id number] 10:10:00 Test Item Value Reference Range Interpretation Comments R-time Rapid (test code = R-time 0.6 min 0.4-0.7 Rapid) [facility] AliceBprikgdYOKRXJOULD5050-56-17 10:10:00 Test Item Value Reference Range Interpretation Comments K-time Rapid (test code = K-time 1.5 min 0.6-2.3 Rapid) [facility] AliceXltaqupUGGNNOIWYP8286-05-27 10:10:00 Test Item Value Reference Range Interpretation Comments Angle Rapid (test code = Angle 71 degrees 64-80 Rapid) [facility] [id number] 10:10:00 Test Item Value Reference Range Interpretation Comments Max Amplitude Rapid (test code = Max 64 mm 52-71 Amplitude Rapid) [facility] AliceTcmhxnrTTDESBQBWL1921-72-77 10:10:00 Test Item Value Reference Range Interpretation Comments G-value Rapid (test code = G-value 8.8 5.0-11.6 Rapid) [facility] Ali[id number] 10:10:00 Test Item Value Reference Range Interpretation Comments Estimated % Lysis Rapid 1.1 See_Comment [Au tomated message] The (test code = Estimated syste m which generated % Lysis Rapid) this result t ransmitted reference range : <=7.5. The reference r mirela was not used to int erpret this result as normal/abnormal . [facility] AliceVskmehcVYYGGBBMGY3818-06-39 10:10:00 Test Item Value Reference Range Interpretation Comments ACT (TEG) Rapid (test code = ACT (TEG) 105 s 86-118 Rapid) [facility] [id number] 10:10:00 Test Item Value Reference Range Interpretation Comments Split Point Rapid (test code = Split 0.3 min Point Rapid) [place] [address]-09-03 10:10:00 Test Item Value Reference Range Interpretation Comments R-time Rapid (test code = R-time 0.6 min 0.4-0.7 Rapid) [facility] [id number] 10:10:00 Test Item Value Reference Range Interpretation Comments K-time Rapid (test code = K-time 1.5 min 0.6-2.3 Rapid) [place] [address]952-09-03 10:10:00 Test Item Value Reference Range Interpretation Comments Angle Rapid (test code = Angle 71 degrees 64-80 Rapid) [facility] AliceZpwgztwALKDPQBDUK6973-20-18 10:10:00 Test Item Value Reference Range Interpretation Comments Max Amplitude Rapid (test code = Max 64 mm 52-71 Amplitude Rapid) [place] [address]-09-03 10:10:00 Test Item Value Reference Range Interpretation Comments G-value Rapid (test code = G-value 8.8 5.0-11.6 Rapid) [place] [address]-09-03 10:10:00 Test Item Value Reference Range Interpretation Comments Estimated % Lysis Rapid 1.1 See_Comment [Au tomated message] The (test code = Estimated syste m which generated % Lysis Rapid) this result t ransmitted reference range : <=7.5. The reference r mirela was not used to int erpret this result as normal/abnormal . [place] [address]952-09-03 10:10:00 Test Item Value Reference Range Interpretation Comments ACT (TEG) Rapid (test code = ACT (TEG) 105 s 86-118 Rapid) [place] 417952-09-03 10:10:00 Test Item Value Reference Range Interpretation Comments Split Point Rapid (test code = Split 0.3 min Point Rapid) [place] [address]-09-03 10:10:00 Test Item Value Reference Range Interpretation Comments R-time Rapid (test code = R-time 0.6 min 0.4-0.7 Rapid) [place] [address]-09-03 10:10:00 Test Item Value Reference Range Interpretation Comments K-time Rapid (test code = K-time 1.5 min 0.6-2.3 Rapid) [place] 417952-09-03 10:10:00 Test Item Value Reference Range Interpretation Comments Angle Rapid (test code = Angle 71 degrees 64-80 Rapid) [facility] [id number] 10:10:00 Test Item Value Reference Range Interpretation Comments Max Amplitude Rapid (test code = Max 64 mm 52-71 Amplitude Rapid) [place] 417952-09-03 10:10:00 Test Item Value Reference Range Interpretation Comments G-value Rapid (test code = G-value 8.8 5.0-11.6 Rapid) [place] [address]-09-03 10:10:00 Test Item Value Reference Range Interpretation Comments Estimated % Lysis Rapid 1.1 See_Comment [Au tomated message] The (test code = Estimated syste m which generated % Lysis Rapid) this result t ransmitted reference range : <=7.5. The reference r mirela was not used to int erpret this result as normal/abnormal . [facility] AliceDiaxfcaMVARKYUDLJ4739-19-67 08:19:57 Test Item Value Reference Range Interpretation Comments WBC X 10x3 (test code = WBC X 10x3) 23.6 3.7-10.4 [place] 417952-09-03 08:19:57 Test Item Value Reference Range Interpretation Comments RBC X 10x6 (test code = RBC X 10x6) 3.63 4.70-6.10 [place] 417952-09-03 08:19:57 Test Item Value Reference Range Interpretation Comments Hgb (test code = Hgb) 13.0 14.0-18.0 [place] [address]-09-03 08:19:57 Test Item Value Reference Range Interpretation Comments Hct (test code = Hct) 38.9 42.0-54.0 [place] [address]-09-03 08:19:57 Test Item Value Reference Range Interpretation Comments MCV (test code = MCV) 107.3 80.0-94.0 [place] [address]-09-03 08:19:57 Test Item Value Reference Range Interpretation Comments MCH (test code = MCH) 35.9 pg 27.0-31.0 [place] [address]-09-03 08:19:57 Test Item Value Reference Range Interpretation Comments MCHC (test code = MCHC) 33.5 32.0-36.0 [place] [address]-09-03 08:19:57 Test Item Value Reference Range Interpretation Comments RDW (test code = RDW) 12.9 11.5-14.[address]09-03 08:19:57 Test Item Value Reference Range Interpretation Comments Platelet (test code = Platelet) 294 133-450 [place] [address]-09-03 08:19:57 Test Item Value Reference Range Interpretation Comments MPV (test code = MPV) 7.3 7.4-10.4 [place] [address]-09-03 08:19:57 Test Item Value Reference Range Interpretation Comments RBC Morph (test code = Normal (06/18/22 3:19 AM) RBC Morph) [address]09-03 08:19:57 Test Item Value Reference Range Interpretation Comments Plt Morph (test code = See Note 2(06/18/22 3:19 Plt Morph) AM) [place] [address]-09-03 08:19:57 Test Item Value Reference Range Interpretation Comments Segs (test code = Segs) 89.5 45.0-75.0 [place] [address]-09-03 08:19:57 Test Item Value Reference Range Interpretation Comments Lymphocytes (test code = Lymphocytes) 2.6 20.0-40.0 [place] [address]-09-03 08:19:57 Test Item Value Reference Range Interpretation Comments Monocytes (test code = Monocytes) 7.4 2.0-12.0 [place] [address]-09-03 08:19:57 Test Item Value Reference Range Interpretation Comments Basophils (test code = 0.5 See_Comment [Aut omated message] The Basophils) system which ge nerated this result tra nsmitted reference range : <=1.0. The reference r mirela was not used to int erpret this result as normal/abnormal . [address]09-03 08:19:57 Test Item Value Reference Range Interpretation Comments Neutrophils # (test code = Neutrophils 21.2 1.5-8.1 #) [address]09-03 08:19:57 Test Item Value Reference Range Interpretation Comments Lymphocytes # (test code = Lymphocytes 0.6 1.0-5.5 #) [address]09-03 08:19:57 Test Item Value Reference Range Interpretation Comments Monocytes # (test code 1.7 See_Comment [Aut omated message] The = Monocytes #) system which generated this result tra nsmitted reference range : <=0.8. The reference r mirela was not used to int erpret this result as normal/abnormal . [facility] AliceLrrmxhzDVJKOUFUIT5974-39-90 08:19:57 Test Item Value Reference Range Interpretation Comments Basophils # (test code 0.1 See_Comment [Aut omated message] The = Basophils #) system which generated this result tra nsmitted reference range : <=0.2. The reference r mirela was not used to int erpret this result as normal/abnormal . [facility] AliceBxtyujpYVKIKHOIVH5381-02-31 08:19:57 Test Item Value Reference Range Interpretation Comments Macrocyte (test code = 2+ *ABN*(06/18/22 3:19 Macrocyte) AM) [facility] AliceKpkfczpZMGXRBOEVG7770-46-67 08:19:57 Test Item Value Reference Range Interpretation Comments Toxic Gran (test code = Toxic Occasional Gran) [facility] AliceHwxxhkfXXNQTVPJXR9084-60-68 08:19:57 Test Item Value Reference Range Interpretation Comments Large Plt (test code = Large Plt) Occasional [facility] AliceDwtpqzdVZXNUCNJTK8058-58-43 08:19:57 Test Item Value Reference Range Interpretation Comments WBC X 10x3 (test code = WBC X 10x3) 23.6 3.7-10.4 [place] [address]-09-03 08:19:57 Test Item Value Reference Range Interpretation Comments RBC X 10x6 (test code = RBC X 10x6) 3.63 4.70-6.10 [facility] AliceDschpsgGDTEWKMXLM2699-63-84 08:19:57 Test Item Value Reference Range Interpretation Comments Hgb (test code = Hgb) 13.0 14.0-18.0 [place] [address]-09-03 08:19:57 Test Item Value Reference Range Interpretation Comments Hct (test code = Hct) 38.9 42.0-54.0 [facility] AliceZiamgsdNCUZVWCXHW3941-00-80 08:19:57 Test Item Value Reference Range Interpretation Comments MCV (test code = MCV) 107.3 80.0-94.0 [place] [address]952-09-03 08:19:57 Test Item Value Reference Range Interpretation Comments MCH (test code = MCH) 35.9 pg 27.0-31.0 [place] [address]-09-03 08:19:57 Test Item Value Reference Range Interpretation Comments MCHC (test code = MCHC) 33.5 32.0-36.0 [place] [address]-09-03 08:19:57 Test Item Value Reference Range Interpretation Comments RDW (test code = RDW) 12.9 11.5-14.5 [place] [address]-09-03 08:19:57 Test Item Value Reference Range Interpretation Comments Platelet (test code = Platelet) 294 133-450 [place] [address]-09-03 08:19:57 Test Item Value Reference Range Interpretation Comments MPV (test code = MPV) 7.3 7.4-10.4 [place] [address]-09-03 08:19:57 Test Item Value Reference Range Interpretation Comments RBC Morph (test code = Normal (06/18/22 3:19 AM) RBC Morph) [address]09-03 08:19:57 Test Item Value Reference Range Interpretation Comments Plt Morph (test code = See Note 2(06/18/22 3:19 Plt Morph) AM) [place] [address]-09-03 08:19:57 Test Item Value Reference Range Interpretation Comments Segs (test code = Segs) 89.5 45.0-75.0 [place] [address]-09-03 08:19:57 Test Item Value Reference Range Interpretation Comments Lymphocytes (test code = Lymphocytes) 2.6 20.0-40.0 [place] [address]-09-03 08:19:57 Test Item Value Reference Range Interpretation Comments Monocytes (test code = Monocytes) 7.4 2.0-12.[address]09-03 08:19:57 Test Item Value Reference Range Interpretation Comments Basophils (test code = 0.5 See_Comment [Aut omated message] The Basophils) system which ge nerated this result tra nsmitted reference range : <=1.0. The reference r mirela was not used to int erpret this result as normal/abnormal . [place] [address]-09-03 08:19:57 Test Item Value Reference Range Interpretation Comments Neutrophils # (test code = Neutrophils 21.2 1.5-8.1 #) [place] [address]-09-03 08:19:57 Test Item Value Reference Range Interpretation Comments Lymphocytes # (test code = Lymphocytes 0.6 1.0-5.5 #) [place] [address]-09-03 08:19:57 Test Item Value Reference Range Interpretation Comments Monocytes # (test code 1.7 See_Comment [Aut omated message] The = Monocytes #) system which generated this result tra nsmitted reference range : <=0.8. The reference r mirela was not used to int erpret this result as normal/abnormal . [place] [address]-09-03 08:19:57 Test Item Value Reference Range Interpretation Comments Basophils # (test code 0.1 See_Comment [Aut omated message] The = Basophils #) system which generated this result tra nsmitted reference range : <=0.2. The reference r mirela was not used to int erpret this result as normal/abnormal . [facility] AliceOtjpgatPHXOHGVBZA4361-17-40 08:19:57 Test Item Value Reference Range Interpretation Comments Macrocyte (test code = 2+ *ABN*(06/18/22 3:19 Macrocyte) AM) [place] [address]-09-03 08:19:57 Test Item Value Reference Range Interpretation Comments Toxic Gran (test code = Toxic Occasional Gran) [place] [address]-09-03 08:19:57 Test Item Value Reference Range Interpretation Comments Large Plt (test code = Large Plt) Occasional [place] [address]-09-03 08:19:57 Test Item Value Reference Range Interpretation Comments WBC X 10x3 (test code = WBC X 10x3) 23.6 3.7-10.4 [place] [address]-09-03 08:19:57 Test Item Value Reference Range Interpretation Comments RBC X 10x6 (test code = RBC X 10x6) 3.63 4.70-6.10 [place] [address]-09-03 08:19:57 Test Item Value Reference Range Interpretation Comments Hgb (test code = Hgb) 13.0 14.0-18.0 [place] [address]-09-03 08:19:57 Test Item Value Reference Range Interpretation Comments Hct (test code = Hct) 38.9 42.0-54.0 [place] [address]-09-03 08:19:57 Test Item Value Reference Range Interpretation Comments MCV (test code = MCV) 107.3 80.0-94.0 [place] [address]-09-03 08:19:57 Test Item Value Reference Range Interpretation Comments MCH (test code = MCH) 35.9 pg 27.0-31.0 [place] 417952-09-03 08:19:57 Test Item Value Reference Range Interpretation Comments MCHC (test code = MCHC) 33.5 32.0-36.0 [place] [address]-09-03 08:19:57 Test Item Value Reference Range Interpretation Comments RDW (test code = RDW) 12.9 11.5-14.5 [place] [address]-09-03 08:19:57 Test Item Value Reference Range Interpretation Comments Platelet (test code = Platelet) 294 133-450 [facility] AliceUrqggrpXPCNLMXUIK9898-05-84 08:19:57 Test Item Value Reference Range Interpretation Comments MPV (test code = MPV) 7.3 7.4-10.4 [place] [address]-09-03 08:19:57 Test Item Value Reference Range Interpretation Comments RBC Morph (test code = Normal (06/18/22 3:19 AM) RBC Morph) [address]09-03 08:19:57 Test Item Value Reference Range Interpretation Comments Plt Morph (test code = See Note 2(06/18/22 3:19 Plt Morph) AM) [place] [address]952-09-03 08:19:57 Test Item Value Reference Range Interpretation Comments Segs (test code = Segs) 89.5 45.0-75.0 [place] [address]-09-03 08:19:57 Test Item Value Reference Range Interpretation Comments Lymphocytes (test code = Lymphocytes) 2.6 20.0-40.0 [place] [address]-09-03 08:19:57 Test Item Value Reference Range Interpretation Comments Monocytes (test code = Monocytes) 7.4 2.0-12.0 [place] [address]-09-03 08:19:57 Test Item Value Reference Range Interpretation Comments Basophils (test code = 0.5 See_Comment [Aut omated message] The Basophils) system which ge nerated this result tra nsmitted reference range : <=1.0. The reference r mirela was not used to int erpret this result as normal/abnormal . [place] [address]952-09-03 08:19:57 Test Item Value Reference Range Interpretation Comments Neutrophils # (test code = Neutrophils 21.2 1.5-8.1 #) [facility] AliceNuzlppqNWBDGAQXLJ7358-95-02 08:19:57 Test Item Value Reference Range Interpretation Comments Lymphocytes # (test code = Lymphocytes 0.6 1.0-5.5 #) [place] [address]-09-03 08:19:57 Test Item Value Reference Range Interpretation Comments Monocytes # (test code 1.7 See_Comment [Aut omated message] The = Monocytes #) system which generated this result tra nsmitted reference range : <=0.8. The reference r mirela was not used to int erpret this result as normal/abnormal . [place] [address]-09-03 08:19:57 Test Item Value Reference Range Interpretation Comments Basophils # (test code 0.1 See_Comment [Aut omated message] The = Basophils #) system which generated this result tra nsmitted reference range : <=0.2. The reference r mirela was not used to int erpret this result as normal/abnormal . [facility] AliceQdlkmnnIRNWNDHITR1188-10-09 08:19:57 Test Item Value Reference Range Interpretation Comments Macrocyte (test code = 2+ *ABN*(06/18/22 3:19 Macrocyte) AM) [place] [address]-09-03 08:19:57 Test Item Value Reference Range Interpretation Comments Toxic Gran (test code = Toxic Occasional Gran) [facility] AlicePicxkwzDINVMRTOQR0564-07-89 08:19:57 Test Item Value Reference Range Interpretation Comments Large Plt (test code = Large Plt) Occasional [facility]JJ[facility]ESHQ5690[facility]82-82 17:27:00 Test Item Value Reference Range Interpretation Comments AGAP (test code = AGAP) 14.7 10.0-20.0 [facility]LjpuqskAAEOEIWJPLSG3020-86-37 17:27:00 Test Item Value Reference Range Interpretation Comments eGFR (test code = eGFR) 70 [facility] HospitalMzdmutnYTGJFRJVKGYP0311-35-54 17:27:00 Test Item Value Reference Range Interpretation Comments BUN (test code = BUN) 16 7-22 [facility] HospitalIbysuwrLDKPWIXCPXBK4705-63-80 17:27:00 Test Item Value Reference Range Interpretation Comments Potassium Lvl (test code = Potassium 3.7 3.5-5.1 Lvl) [facility] HospitalAnmxgimTDUZETGAFCKS0011-58-07 17:27:00 Test Item Value Reference Range Interpretation Comments Glucose Lvl (test code = Glucose Lvl) 87 70-99 [facility] HospitalJcdblleESFBSLULQZNG8016-85-93 17:27:00 Test Item Value Reference Range Interpretation Comments Sodium Lvl (test code = Sodium Lvl) 139 135-145 [facility] HospitalQahunmiMAVPNHZKMDFA0776-61-80 17:27:00 Test Item Value Reference Range Interpretation Comments CO2 (test code = CO2) 23 24-32 [facility] HospitalHkaecaoUMXFVUOKLAIR7895-18-06 17:27:00 Test Item Value Reference Range Interpretation Comments Chloride Lvl (test code = Chloride Lvl) 105 95-109 [facility] HospitalMstvhgjPTKLVCVBLMOU8474-85-77 17:27:00 Test Item Value Reference Range Interpretation Comments Calcium Lvl (test code = Calcium Lvl) 8.8 8.5-10.5 [facility] [facility]EV[facility]IOQWXN6422-88-96 17:27:00 Test Item Value Reference Range Interpretation Comments Creatinine Lvl (test code = Creatinine 0.98 0.50-1.40 Lvl) [facility]zirjrtRHTLHTCXFC9777-11-12 17:27:00 Test Item Value Reference Range Interpretation Comments INR (test code = INR) 1.04 1 0.85-1.17 [facility] AliceMlckhcgGYXEHUCRNO3847-48-64 17:27:00 Test Item Value Reference Range Interpretation Comments PT (test code = PT) 13.6 s 12.0-14.7 [facility] AliceRntkgsnZRFJJFPXDH2868-36-90 17:27:00 Test Item Value Reference Range Interpretation Comments PTT (test code = PTT) 30.2 s 22.9-35.8 [facility] AliceIspujrmFFWVTBUGFQ8673-06-88 17:27:00 Test Item Value Reference Range Interpretation Comments Platelet (test code = Platelet) 227 133-450 [facility] AliceQpvncurSQVYOXTVKU9392-08-52 17:27:00 Test Item Value Reference Range Interpretation Comments MPV (test code = MPV) 7.6 7.4-10.4 [facility] AliceHaoqhuoGXEIVCGYFV0446-72-32 17:27:00 Test Item Value Reference Range Interpretation Comments MCH (test code = MCH) 36.6 pg 27.0-31.0 [facility] AliceGovorfyOZRPHYVAMZ0519-46-46 17:27:00 Test Item Value Reference Range Interpretation Comments RDW (test code = RDW) 13.1 11.5-14.5 [facility] AliceSkzfnyaISWZLAGDLC4938-67-93 17:27:00 Test Item Value Reference Range Interpretation Comments MCHC (test code = MCHC) 34.3 32.0-36.0 [facility] AliceJacwhziQVRVQJMPDH6644-34-75 17:27:00 Test Item Value Reference Range Interpretation Comments RBC (test code = RBC) 4.30 4.70-6.10 [facility] AliceJudfmftXYVTWFCQOU1282-50-53 17:27:00 Test Item Value Reference Range Interpretation Comments Hgb (test code = Hgb) 15.7 14.0-18.0 [place] 251528-01-31 17:27:00 Test Item Value Reference Range Interpretation Comments Hct (test code = Hct) 45.8 42.0-54.0 [facility] AliceNobrrseBEVNARLPLH1334-90-36 17:27:00 Test Item Value Reference Range Interpretation Comments MCV (test code = MCV) 106.5 80.0-94.0 [facility] AliceJduaiynKWJQKWCTZF9313-99-92 17:27:00 Test Item Value Reference Range Interpretation Comments WBC (test code = WBC) 9.6 3.7-10.4 [facility] AliceMlnnrvzPJRLKEZABA4283-45-25 17:27:00 Test Item Value Reference Range Interpretation Comments Eosinophils # (test code 0.1 See_Comment [A utomated message] The = Eosinophils #) system whic h generated this result tra nsmitted reference range : <=0.5. The reference r mirela was not used to int erpret this result as normal/abnormal . [facility] AliceAzkxizxBQDSHHRJBD5792-53-80 17:27:00 Test Item Value Reference Range Interpretation Comments Basophils # (test code 0.1 See_Comment [Aut omated message] The = Basophils #) system which generated this result tra nsmitted reference range : <=0.2. The reference r mirela was not used to int erpret this result as normal/abnormal . [facility] AliceMkkhuduZVLHFTJIBQ7169-74-87 17:27:00 Test Item Value Reference Range Interpretation Comments Macrocyte (test code = 2+ *ABN*(11/15/17 Macrocyte) 11:27 AM) [facility] AliceLotfiamVRDUMPVFXC6531-85-97 17:27:00 Test Item Value Reference Range Interpretation Comments Basophils (test code = 1.0 See_Comment [Aut omated message] The Basophils) system which ge nerated this result tra nsmitted reference range : <=1.0. The reference r mirela was not used to int erpret this result as normal/abnormal . [facility] AliceZvmmxvbMCPKUESOUA4664-59-71 17:27:00 Test Item Value Reference Range Interpretation Comments Monocytes # (test code 1.1 See_Comment [Aut omated message] The = Monocytes #) system which generated this result tra nsmitted reference range : <=0.8. The reference r mirela was not used to int erpret this result as normal/abnormal . [facility] AliceOfvwrmjHRZMTCUPSJ6246-59-96 17:27:00 Test Item Value Reference Range Interpretation Comments Segs-Bands # (test code = Segs-Bands #) 7.2 1.5-8.1 [facility] AlicePiuqctiYVGZHDMLWH9348-09-34 17:27:00 Test Item Value Reference Range Interpretation Comments Lymphocytes # (test code = Lymphocytes 1.1 1.0-5.5 #) [facility] AliceTyansqjQTNGWCVHPN6711-69-50 17:27:00 Test Item Value Reference Range Interpretation Comments Segs (test code = Segs) 74.8 45.0-75.0 [facility] AliceVnforueHKKPEIUCGG5759-05-19 17:27:00 Test Item Value Reference Range Interpretation Comments Lymphocytes (test code = Lymphocytes) 11.4 20.0-40.0 [facility] AlicePksaveeTINMLNXQHJ6392-05-74 17:27:00 Test Item Value Reference Range Interpretation Comments Eosinophils (test code = 1.4 See_Comment [A utomated message] The Eosinophils) system which ge nerated this result tra nsmitted reference range : <=4.0. The reference r mirela was not used to int erpret this result as normal/abnormal . [facility] AliceNqyxiogPZAHKGOGAP2722-76-19 17:27:00 Test Item Value Reference Range Interpretation Comments Monocytes (test code = Monocytes) 11.4 2.0-12.0 [facility]MkwligiZVRDUKMFJEAW2120-71-31 17:27:00 Test Item Value Reference Range Interpretation Comments AGAP (test code = AGAP) 14.7 10.0-20.0 [facility]JsrbvnjIEZSFWXRHJQH0028-02-54 17:27:00 Test Item Value Reference Range Interpretation Comments eGFR (test code = eGFR) 70 [facility] HospitalIugrrnsKGIIEFRKMRMA3140-81-69 17:27:00 Test Item Value Reference Range Interpretation Comments BUN (test code = BUN) 16 7-22 [facility] HospitalOefszypCUFSMPNRFEIG1506-82-65 17:27:00 Test Item Value Reference Range Interpretation Comments Potassium Lvl (test code = Potassium 3.7 3.5-5.1 Lvl) [facility] HospitalPccwqpwGUJKYKZMDJBH1894-83-08 17:27:00 Test Item Value Reference Range Interpretation Comments Glucose Lvl (test code = Glucose Lvl) 87 70-99 [facility] HospitalQnwmozqZACQUGIGDSVO1579-28-88 17:27:00 Test Item Value Reference Range Interpretation Comments Sodium Lvl (test code = Sodium Lvl) 139 135-145 [facility] HospitalZkygidsYIPIWDEXJERN8085-27-19 17:27:00 Test Item Value Reference Range Interpretation Comments CO2 (test code = CO2) 23 24-32 [facility] HospitalInntrhqDGOWKFFCCYND6936-22-67 17:27:00 Test Item Value Reference Range Interpretation Comments Chloride Lvl (test code = Chloride Lvl) 105 95-109 [facility] HospitalEvgeigiRYHTCMBJHOZU1143-46-94 17:27:00 Test Item Value Reference Range Interpretation Comments Calcium Lvl (test code = Calcium Lvl) 8.8 8.5-10.5 [facility] HospitalKpqigwnGVTOMMVLWWUO5586-12-19 17:27:00 Test Item Value Reference Range Interpretation Comments Creatinine Lvl (test code = Creatinine 0.98 0.50-1.40 Lvl) [facility] AliceVmravomVXMGSRHHTD8477-09-05 17:27:00 Test Item Value Reference Range Interpretation Comments INR (test code = INR) 1.04 1 0.85-1.17 [facility] AliceJqiyuzwXRHXPHOUCL0571-02-12 17:27:00 Test Item Value Reference Range Interpretation Comments PT (test code = PT) 13.6 s 12.0-14.7 [facility] AliceUdnwmvyXBHFYBZKPI7425-99-23 17:27:00 Test Item Value Reference Range Interpretation Comments PTT (test code = PTT) 30.2 s 22.9-35.8 [facility] AliceHlsryotJASNEYESEO8190-62-90 17:27:00 Test Item Value Reference Range Interpretation Comments Platelet (test code = Platelet) 227 133-450 [facility] AlicePxslbedMCDVCCIJXT0790-30-48 17:27:00 Test Item Value Reference Range Interpretation Comments MPV (test code = MPV) 7.6 7.4-10.4 [facility] AliceNoytelwOYVBYKNYTN0706-99-14 17:27:00 Test Item Value Reference Range Interpretation Comments MCH (test code = MCH) 36.6 pg 27.0-31.0 [facility] AliceBnntxzaCFBKGUEYEH0772-35-65 17:27:00 Test Item Value Reference Range Interpretation Comments RDW (test code = RDW) 13.1 11.5-14.5 [facility] AliceAiqvbbbFWSVGZHBTF0628-42-54 17:27:00 Test Item Value Reference Range Interpretation Comments MCHC (test code = MCHC) 34.3 32.0-36.0 [facility] AliceJqpmisdFGUFKVQFIL8905-27-67 17:27:00 Test Item Value Reference Range Interpretation Comments RBC (test code = RBC) 4.30 4.70-6.10 [facility] AliceWnxhsnpWZCRIBYPAC2650-59-51 17:27:00 Test Item Value Reference Range Interpretation Comments Hgb (test code = Hgb) 15.7 14.0-18.0 [facility] AliceDsusiudDQSFXRPEHR1778-40-51 17:27:00 Test Item Value Reference Range Interpretation Comments Hct (test code = Hct) 45.8 42.0-54.0 [facility] AliceHuqveeaIWBCXDPTBY2227-40-75 17:27:00 Test Item Value Reference Range Interpretation Comments MCV (test code = MCV) 106.5 80.0-94.0 [facility] AliceFmvkdkqBQLPYWPYDG9945-67-75 17:27:00 Test Item Value Reference Range Interpretation Comments WBC (test code = WBC) 9.6 3.7-10.4 [facility] AliceIaowtmjVOLBQTZXZE9113-59-27 17:27:00 Test Item Value Reference Range Interpretation Comments Eosinophils # (test code 0.1 See_Comment [A utomated message] The = Eosinophils #) system whic h generated this result tra nsmitted reference range : <=0.5. The reference r mirela was not used to int erpret this result as normal/abnormal . [facility] AliceCikqhjsWESSCXOYWJ3675-99-50 17:27:00 Test Item Value Reference Range Interpretation Comments Basophils # (test code 0.1 See_Comment [Aut omated message] The = Basophils #) system which generated this result tra nsmitted reference range : <=0.2. The reference r mirela was not used to int erpret this result as normal/abnormal . [facility] AliceOlhwcfgSQWPMHSZMN5384-44-61 17:27:00 Test Item Value Reference Range Interpretation Comments Macrocyte (test code = 2+ *ABN*(11/15/17 Macrocyte) 11:27 AM) [facility] AliceZeqemzeMTOYTYNTVZ9765-26-68 17:27:00 Test Item Value Reference Range Interpretation Comments Basophils (test code = 1.0 See_Comment [Aut omated message] The Basophils) system which ge nerated this result tra nsmitted reference range : <=1.0. The reference r mirela was not used to int erpret this result as normal/abnormal . [facility] AliceHpvputxXLWYPKLLGY4782-75-18 17:27:00 Test Item Value Reference Range Interpretation Comments Monocytes # (test code 1.1 See_Comment [Aut omated message] The = Monocytes #) system which generated this result tra nsmitted reference range : <=0.8. The reference r mirela was not used to int erpret this result as normal/abnormal . [facility] AliceQrmsfkvYCKNAEMCBA6672-78-29 17:27:00 Test Item Value Reference Range Interpretation Comments Segs-Bands # (test code = Segs-Bands #) 7.2 1.5-8.1 [facility] AliceHztbvazJODTSEOXCJ5307-36-18 17:27:00 Test Item Value Reference Range Interpretation Comments Lymphocytes # (test code = Lymphocytes 1.1 1.0-5.5 #) [facility] AliceSjsldhqEHJWKGYUWU0201-03-90 17:27:00 Test Item Value Reference Range Interpretation Comments Segs (test code = Segs) 74.8 45.0-75.0 [facility] AliceEdavyxcMIODPYYYTO7940-34-39 17:27:00 Test Item Value Reference Range Interpretation Comments Lymphocytes (test code = Lymphocytes) 11.4 20.0-40.0 [facility] AliceMtcqmxhEYQSTIGXGC7634-74-61 17:27:00 Test Item Value Reference Range Interpretation Comments Eosinophils (test code = 1.4 See_Comment [A utomated message] The Eosinophils) system which ge nerated this result tra nsmitted reference range : <=4.0. The reference r mirela was not used to int erpret this result as normal/abnormal . [facility] AliceLmblqyiEBCUIVGEBV6977-02-94 17:27:00 Test Item Value Reference Range Interpretation Comments Monocytes (test code = Monocytes) 11.4 2.0-12.0 [facility] HospitalFahvhtvFJBHUBLUFSVL1726-49-41 17:27:00 Test Item Value Reference Range Interpretation Comments AGAP (test code = AGAP) 14.7 10.0-20.0 [facility] HospitalSdnwvbvTHCRCFADZTIR2879-60-82 17:27:00 Test Item Value Reference Range Interpretation Comments eGFR (test code = eGFR) 70 [facility] HospitalAhelrnsWWECWJNWYMFT0257-64-01 17:27:00 Test Item Value Reference Range Interpretation Comments BUN (test code = BUN) 16 7-22 [facility] HospitalStctyftLSIKSUKPMYYQ3067-20-64 17:27:00 Test Item Value Reference Range Interpretation Comments Potassium Lvl (test code = Potassium 3.7 3.5-5.1 Lvl) [facility] HospitalMdzforfCGSCZGBLPHXJ1054-57-36 17:27:00 Test Item Value Reference Range Interpretation Comments Glucose Lvl (test code = Glucose Lvl) 87 70-99 [facility] HospitalWwviowwONPHWMMRVJGB1142-59-05 17:27:00 Test Item Value Reference Range Interpretation Comments Sodium Lvl (test code = Sodium Lvl) 139 135-145 [facility] HospitalPbfnpseJHWPKAUMETBC6353-43-29 17:27:00 Test Item Value Reference Range Interpretation Comments CO2 (test code = CO2) 23 24-32 [facility] HospitalMvvmlmnHXLERZCJJTBJ6807-08-09 17:27:00 Test Item Value Reference Range Interpretation Comments Chloride Lvl (test code = Chloride Lvl) 105 95-109 [facility] HospitalLxgzbkmJAAYCNNAPCMS9819-13-00 17:27:00 Test Item Value Reference Range Interpretation Comments Calcium Lvl (test code = Calcium Lvl) 8.8 8.5-10.5 [facility] HospitalRkvgjztVIXKNRYNGEYJ5835-65-56 17:27:00 Test Item Value Reference Range Interpretation Comments Creatinine Lvl (test code = Creatinine 0.98 0.50-1.40 Lvl) [facility] AliceHomdccyUMKWCIXUJO7503-65-73 17:27:00 Test Item Value Reference Range Interpretation Comments INR (test code = INR) 1.04 1 0.85-1.17 [facility] AliceCozrrweUTGGRXRXTO6368-69-27 17:27:00 Test Item Value Reference Range Interpretation Comments PT (test code = PT) 13.6 s 12.0-14.7 [facility] AliceNlavguoBMJPLLFRGG6878-10-15 17:27:00 Test Item Value Reference Range Interpretation Comments PTT (test code = PTT) 30.2 s 22.9-35.8 [facility] AliceOrfbkpjWOZNOLIYLY1300-94-50 17:27:00 Test Item Value Reference Range Interpretation Comments Platelet (test code = Platelet) 227 133-450 [facility] AliceBsngujuGSMMQTDJXN0323-64-53 17:27:00 Test Item Value Reference Range Interpretation Comments MPV (test code = MPV) 7.6 7.4-10.4 [facility] AlicePrxwyjzAHZZHOHCEC9008-92-51 17:27:00 Test Item Value Reference Range Interpretation Comments MCH (test code = MCH) 36.6 pg 27.0-31.0 [facility] AliceEmfknqjXRYISDWTZK0940-85-04 17:27:00 Test Item Value Reference Range Interpretation Comments RDW (test code = RDW) 13.1 11.5-14.5 [facility] AliceGwpucoyQEYYPZMOQW4600-71-69 17:27:00 Test Item Value Reference Range Interpretation Comments MCHC (test code = MCHC) 34.3 32.0-36.0 [facility] AliceTgteapmQQYQRQHXXW9946-05-15 17:27:00 Test Item Value Reference Range Interpretation Comments RBC (test code = RBC) 4.30 4.70-6.10 [facility] AliceUbqscxjIDYSOBEJSC2504-74-98 17:27:00 Test Item Value Reference Range Interpretation Comments Hgb (test code = Hgb) 15.7 14.0-18.0 [facility] AliceCflnobsTZHPQCAQFW6496-74-41 17:27:00 Test Item Value Reference Range Interpretation Comments Hct (test code = Hct) 45.8 42.0-54.0 [facility] AliceGyybiouOMHNZFIZCR8140-24-28 17:27:00 Test Item Value Reference Range Interpretation Comments MCV (test code = MCV) 106.5 80.0-94.0 [facility] AliceYbdriyoSUPBTBPRHJ4276-56-07 17:27:00 Test Item Value Reference Range Interpretation Comments WBC (test code = WBC) 9.6 3.7-10.4 [facility] AliceGfehteyDTLTAOUVFU2852-92-07 17:27:00 Test Item Value Reference Range Interpretation Comments Eosinophils # (test code 0.1 See_Comment [A utomated message] The = Eosinophils #) system whic h generated this result tra nsmitted reference range : <=0.5. The reference r mirela was not used to int erpret this result as normal/abnormal . [facility] AliceQhigxonFSALDOFUPB8889-70-76 17:27:00 Test Item Value Reference Range Interpretation Comments Basophils # (test code 0.1 See_Comment [Aut omated message] The = Basophils #) system which generated this result tra nsmitted reference range : <=0.2. The reference r mirela was not used to int erpret this result as normal/abnormal . [facility] AliceEncohgiUHJYSIRIEC8565-78-18 17:27:00 Test Item Value Reference Range Interpretation Comments Macrocyte (test code = 2+ *ABN*(11/15/17 Macrocyte) 11:27 AM) [facility] AliceVzkjfadQFGVTAPRFO6994-00-89 17:27:00 Test Item Value Reference Range Interpretation Comments Basophils (test code = 1.0 See_Comment [Aut omated message] The Basophils) system which ge nerated this result tra nsmitted reference range : <=1.0. The reference r mirela was not used to int erpret this result as normal/abnormal . [facility] AliceSmrkkiaJOFGCFKZGG4385-68-61 17:27:00 Test Item Value Reference Range Interpretation Comments Monocytes # (test code 1.1 See_Comment [Aut omated message] The = Monocytes #) system which generated this result tra nsmitted reference range : <=0.8. The reference r mirela was not used to int erpret this result as normal/abnormal . [facility] AliceFjexadfLMXOBOZSME7359-99-52 17:27:00 Test Item Value Reference Range Interpretation Comments Segs-Bands # (test code = Segs-Bands #) 7.2 1.5-8.1 [facility] AlicePqaxtldWEDVICUFBC4808-96-54 17:27:00 Test Item Value Reference Range Interpretation Comments Lymphocytes # (test code = Lymphocytes 1.1 1.0-5.5 #) [facility] AliceIzwrmjuEJXHYNAQPM3117-05-31 17:27:00 Test Item Value Reference Range Interpretation Comments Segs (test code = Segs) 74.8 45.0-75.0 [facility] AliceGxnupzcLWBVNUKNTH4853-84-58 17:27:00 Test Item Value Reference Range Interpretation Comments Lymphocytes (test code = Lymphocytes) 11.4 20.0-40.0 [facility] AliceFatpintHEQGYICMQS5205-43-95 17:27:00 Test Item Value Reference Range Interpretation Comments Eosinophils (test code = 1.4 See_Comment [A utomated message] The Eosinophils) system which ge nerated this result tra nsmitted reference range : <=4.0. The reference r mirela was not used to int erpret this result as normal/abnormal . [facility] AliceEermmciAFLOVUZGGI5207-11-83 17:27:00 Test Item Value Reference Range Interpretation Comments Monocytes (test code = Monocytes) 11.4 2.0-12.0 [facility]2016-10-08 00:32:00 Test Item Value Reference Range Interpretation Comments Calcium Lvl (test code = Calcium Lvl) 8.1 8.5-10.5 [facility]2016-10-08 00:32:00 Test Item Value Reference Range Interpretation Comments CO2 (test code = CO2) 23 24-32 [facility]2016-10-08 00:32:00 Test Item Value Reference Range Interpretation Comments Chloride Lvl (test code = Chloride Lvl) 110 95-109 [facility]2016-10-08 00:32:00 Test Item Value Reference Range Interpretation Comments Sodium Lvl (test code = Sodium Lvl) 141 135-145 [facility]2016-10-08 00:32:00 Test Item Value Reference Range Interpretation Comments BUN (test code = BUN) 11 7-22 [facility]2016-10-08 00:32:00 Test Item Value Reference Range Interpretation Comments Potassium Lvl (test code = Potassium 3.8 3.5-5.1 Lvl) [facility]2016-10-08 00:32:00 Test Item Value Reference Range Interpretation Comments Glucose Lvl (test code = Glucose Lvl) 146 70-99 [facility]2016-10-08 00:32:00 Test Item Value Reference Range Interpretation Comments eGFR (test code = eGFR) 69 [facility]2016-10-08 00:32:00 Test Item Value Reference Range Interpretation Comments Creatinine Lvl (test code = Creatinine 1.00 0.50-1.40 Lvl) [facility]2016-10-08 00:32:00 Test Item Value Reference Range Interpretation Comments AGAP (test code = AGAP) 11.8 10.0-20.0 [facility]2016-10-08 00:32:00 Test Item Value Reference Range Interpretation Comments Phosphorus (test code = Phosphorus) 2.7 2.5-4.5 [facility]2016-10-08 00:32:00 Test Item Value Reference Range Interpretation Comments Magnesium Lvl (test code = Magnesium 1.9 1.8-2.4 Lvl) [facility] AliceFrkzmdoAYQRBOYOKC2062-72-53 00:32:00 Test Item Value Reference Range Interpretation Comments Basophils # (test code 0.1 See_Comment [Aut omated message] The = Basophils #) system which generated this result tra nsmitted reference range : <=0.2. The reference r mirela was not used to int erpret this result as normal/abnormal . [facility] AliceMcufekmEVDKHZNUOY6742-86-96 00:32:00 Test Item Value Reference Range Interpretation Comments Eosinophils # (test code 0.2 See_Comment [A utomated message] The = Eosinophils #) system whic h generated this result tra nsmitted reference range : <=0.5. The reference r mirela was not used to int erpret this result as normal/abnormal . [facility] AliceMundyjbLURSYAEAZN7832-00-45 00:32:00 Test Item Value Reference Range Interpretation Comments Macrocyte (test code = 1+ *ABN*(07/22/16 Macrocyte) 7:32 PM) [facility] AliceMgfhtubLXRIMDPEGG6795-11-46 00:32:00 Test Item Value Reference Range Interpretation Comments Eosinophils (test code = 2.0 See_Comment [A utomated message] The Eosinophils) system which ge nerated this result tra nsmitted reference range : <=4.0. The reference r mirela was not used to int erpret this result as normal/abnormal . [facility] AliceWijspocTMAWXFKNNM2431-01-24 00:32:00 Test Item Value Reference Range Interpretation Comments Segs-Bands # (test code = Segs-Bands #) 7.7 1.5-8.1 [facility] AliceNopstkfWNYZYAMCHU1454-65-40 00:32:00 Test Item Value Reference Range Interpretation Comments Monocytes (test code = Monocytes) 8.9 2.0-12.0 [facility] AliceSvqltdhFLOXRBOXGC5182-30-31 00:32:00 Test Item Value Reference Range Interpretation Comments Basophils (test code = 0.9 See_Comment [Aut omated message] The Basophils) system which ge nerated this result tra nsmitted reference range : <=1.0. The reference r mirela was not used to int erpret this result as normal/abnormal . [facility] AliceKibpotmSRMHKWKIPB2070-83-79 00:32:00 Test Item Value Reference Range Interpretation Comments Lymphocytes (test code = Lymphocytes) 14.5 20.0-40.0 [facility] AliceTzubsopZDAIOYZUGX5659-64-49 00:32:00 Test Item Value Reference Range Interpretation Comments Lymphocytes # (test code = Lymphocytes 1.5 1.0-5.5 #) [facility] AliceKumptukLHEMTSUPVB2804-66-64 00:32:00 Test Item Value Reference Range Interpretation Comments Monocytes # (test code 0.9 See_Comment [Aut omated message] The = Monocytes #) system which generated this result tra nsmitted reference range : <=0.8. The reference r mirela was not used to int erpret this result as normal/abnormal . [facility] AliceAoocugmIQBLMINZUS1246-67-28 00:32:00 Test Item Value Reference Range Interpretation Comments Segs (test code = Segs) 73.7 45.0-75.0 [facility] AliceUtagnrdAAZALFSNCQ4457-28-52 00:32:00 Test Item Value Reference Range Interpretation Comments WBC (test code = WBC) 10.5 3.7-10.4 [facility] AliceSdmitwcXVHJFOZKOY0390-38-08 00:32:00 Test Item Value Reference Range Interpretation Comments RBC (test code = RBC) 4.03 4.70-6.10 [facility] AliceKrxjjdwAVBZZPDUVI1527-93-38 00:32:00 Test Item Value Reference Range Interpretation Comments Hgb (test code = Hgb) 14.4 14.0-18.0 [facility] AliceGdzqrnkILRAJMXGYT0862-92-63 00:32:00 Test Item Value Reference Range Interpretation Comments Hct (test code = Hct) 42.5 42.0-54.0 [facility] AliceJdwucqnSOPGGKZDCV7842-85-03 00:32:00 Test Item Value Reference Range Interpretation Comments MCV (test code = MCV) 105.6 80.0-94.0 [facility] AliceQdxgwkwIWDMKDYASU5338-65-92 00:32:00 Test Item Value Reference Range Interpretation Comments Platelet (test code = Platelet) 186 133-450 [facility] AliceIzxxgttRBSEJVHBDD2940-18-22 00:32:00 Test Item Value Reference Range Interpretation Comments MCH (test code = MCH) 35.9 pg 27.0-31.0 [facility] AliceZzmpttgVVOTVPQWSL8721-79-73 00:32:00 Test Item Value Reference Range Interpretation Comments RDW (test code = RDW) 12.4 11.5-14.5 [facility]VCNXYNK6068[facility]62-33 [facility]:32:00 Test Item Value Reference Range Interpretation Comments MPV (test code = MPV) 7.6 7.4-10.4 [facility] AliceYggyqvdQBVQUHSEVU9685-18-04 00:32:00 Test Item Value Reference Range Interpretation Comments MCHC (test code = MCHC) 34.0 32.0-36.0 [facility]2016-10-08 00:32:00 Test Item Value Reference Range Interpretation Comments Calcium Lvl (test code = Calcium Lvl) 8.1 8.5-10.5 [facility]2016-10-08 00:32:00 Test Item Value Reference Range Interpretation Comments CO2 (test code = CO2) 23 24-32 [facility]2016-10-08 00:32:00 Test Item Value Reference Range Interpretation Comments Chloride Lvl (test code = Chloride Lvl) 110 95-109 [facility]2016-10-08 00:32:00 Test Item Value Reference Range Interpretation Comments Sodium Lvl (test code = Sodium Lvl) 141 135-145 [facility]2016-10-08 00:32:00 Test Item Value Reference Range Interpretation Comments BUN (test code = BUN) 11 7-22 [facility]2016-10-08 00:32:00 Test Item Value Reference Range Interpretation Comments Potassium Lvl (test code = Potassium 3.8 3.5-5.1 Lvl) [facility]2016-10-08 00:32:00 Test Item Value Reference Range Interpretation Comments Glucose Lvl (test code = Glucose Lvl) 146 70-99 [facility]2016-10-08 00:32:00 Test Item Value Reference Range Interpretation Comments eGFR (test code = eGFR) 69 [facility]2016-10-08 00:32:00 Test Item Value Reference Range Interpretation Comments Creatinine Lvl (test code = Creatinine 1.00 0.50-1.40 Lvl) [facility]2016-10-08 00:32:00 Test Item Value Reference Range Interpretation Comments AGAP (test code = AGAP) 11.8 10.0-20.0 [facility]2016-10-08 00:32:00 Test Item Value Reference Range Interpretation Comments Phosphorus (test code = Phosphorus) 2.7 2.5-4.5 [facility]2016-10-08 00:32:00 Test Item Value Reference Range Interpretation Comments Magnesium Lvl (test code = Magnesium 1.9 1.8-2.4 Lvl) [facility] AliceMnfybvpPZDQHTPARZ2386-47-55 00:32:00 Test Item Value Reference Range Interpretation Comments Basophils # (test code 0.1 See_Comment [Aut omated message] The = Basophils #) system which generated this result tra nsmitted reference range : <=0.2. The reference r mirela was not used to int erpret this result as normal/abnormal . [facility] AliceKkhctqjGZFBHQWWQG8264-98-15 00:32:00 Test Item Value Reference Range Interpretation Comments Eosinophils # (test code 0.2 See_Comment [A utomated message] The = Eosinophils #) system whic h generated this result tra nsmitted reference range : <=0.5. The reference r mirela was not used to int erpret this result as normal/abnormal . [facility] AliceNbzxxoaEBBHFALCBS0023-14-91 00:32:00 Test Item Value Reference Range Interpretation Comments Macrocyte (test code = 1+ *ABN*(07/22/16 Macrocyte) 7:32 PM) [facility] AliceQvkozvjHRQIAEWMBV5984-60-48 00:32:00 Test Item Value Reference Range Interpretation Comments Eosinophils (test code = 2.0 See_Comment [A utomated message] The Eosinophils) system which ge nerated this result tra nsmitted reference range : <=4.0. The reference r mirela was not used to int erpret this result as normal/abnormal . [facility] AliceRcbtyznVYPFCQYSOG4912-11-41 00:32:00 Test Item Value Reference Range Interpretation Comments Segs-Bands # (test code = Segs-Bands #) 7.7 1.5-8.1 [facility] AliceBcnfojjQDFQSIZAQB6979-43-90 00:32:00 Test Item Value Reference Range Interpretation Comments Monocytes (test code = Monocytes) 8.9 2.0-12.0 [facility] AlicePsowsgzUBIZSFPLSB2798-98-22 00:32:00 Test Item Value Reference Range Interpretation Comments Basophils (test code = 0.9 See_Comment [Aut omated message] The Basophils) system which ge nerated this result tra nsmitted reference range : <=1.0. The reference r mirela was not used to int erpret this result as normal/abnormal . [facility] AliceHqznbdbDYDGZQICEN4919-86-05 00:32:00 Test Item Value Reference Range Interpretation Comments Lymphocytes (test code = Lymphocytes) 14.5 20.0-40.0 [facility] AliceLgdxnzoDXCFMPRQJG0087-99-06 00:32:00 Test Item Value Reference Range Interpretation Comments Lymphocytes # (test code = Lymphocytes 1.5 1.0-5.5 #) [facility] AliceOqtalomRQBPGARHVF7382-35-89 00:32:00 Test Item Value Reference Range Interpretation Comments Monocytes # (test code 0.9 See_Comment [Aut omated message] The = Monocytes #) system which generated this result tra nsmitted reference range : <=0.8. The reference r mirela was not used to int erpret this result as normal/abnormal . [facility] AliceOmehblqXKDNGVRBVE9041-86-87 00:32:00 Test Item Value Reference Range Interpretation Comments Segs (test code = Segs) 73.7 45.0-75.0 [facility] AliceBakumffDIUOICWPXH7092-24-61 00:32:00 Test Item Value Reference Range Interpretation Comments WBC (test code = WBC) 10.5 3.7-10.4 [facility] AliceIdfwccdZUKWVLFWIV3735-91-49 00:32:00 Test Item Value Reference Range Interpretation Comments RBC (test code = RBC) 4.03 4.70-6.10 [facility] AliceShkxzsaZPFJZBUFKA7432-00-15 00:32:00 Test Item Value Reference Range Interpretation Comments Hgb (test code = Hgb) 14.4 14.0-18.0 [facility] AliceHvqbjpxEDCCOOEXWP8094-31-17 00:32:00 Test Item Value Reference Range Interpretation Comments Hct (test code = Hct) 42.5 42.0-54.0 [facility] AliceUlqaxdgJVMQEVQMSN9194-70-65 00:32:00 Test Item Value Reference Range Interpretation Comments MCV (test code = MCV) 105.6 80.0-94.0 [facility] AliceIispdexNECOQEUYHS0325-41-64 00:32:00 Test Item Value Reference Range Interpretation Comments Platelet (test code = Platelet) 186 133-450 [facility] AliceRgnwtcgOSZGFJSSWW7075-58-68 00:32:00 Test Item Value Reference Range Interpretation Comments MCH (test code = MCH) 35.9 pg 27.0-31.0 [facility] AliceDwsxmtdZSIKJLKIFP4243-37-21 00:32:00 Test Item Value Reference Range Interpretation Comments RDW (test code = RDW) 12.4 11.5-14.5 [facility] AliceGsowtdpQWPCYFIYYG1923-68-75 00:32:00 Test Item Value Reference Range Interpretation Comments MPV (test code = MPV) 7.6 7.4-10.4 [facility] AlicePfyfdocAVQWOUFRAA6967-17-44 00:32:00 Test Item Value Reference Range Interpretation Comments MCHC (test code = MCHC) 34.0 32.0-36.0 [facility]2016-10-08 00:32:00 Test Item Value Reference Range Interpretation Comments Calcium Lvl (test code = Calcium Lvl) 8.1 8.5-10.5 [facility]2016-10-08 00:32:00 Test Item Value Reference Range Interpretation Comments CO2 (test code = CO2) 23 24-32 [facility]2016-10-08 00:32:00 Test Item Value Reference Range Interpretation Comments Chloride Lvl (test code = Chloride Lvl) 110 95-109 [facility]2016-10-08 00:32:00 Test Item Value Reference Range Interpretation Comments Sodium Lvl (test code = Sodium Lvl) 141 135-145 [facility]2016-10-08 00:32:00 Test Item Value Reference Range Interpretation Comments BUN (test code = BUN) 11 7-22 [facility]2016-10-08 00:32:00 Test Item Value Reference Range Interpretation Comments Potassium Lvl (test code = Potassium 3.8 3.5-5.1 Lvl) [facility]2016-10-08 00:32:00 Test Item Value Reference Range Interpretation Comments Glucose Lvl (test code = Glucose Lvl) 146 70-99 [facility]2016-10-08 00:32:00 Test Item Value Reference Range Interpretation Comments eGFR (test code = eGFR) 69 [facility]2016-10-08 00:32:00 Test Item Value Reference Range Interpretation Comments Creatinine Lvl (test code = Creatinine 1.00 0.50-1.40 Lvl) [facility]2016-10-08 00:32:00 Test Item Value Reference Range Interpretation Comments AGAP (test code = AGAP) 11.8 10.0-20.0 [facility]2016-10-08 00:32:00 Test Item Value Reference Range Interpretation Comments Phosphorus (test code = Phosphorus) 2.7 2.5-4.5 [facility]2016-10-08 00:32:00 Test Item Value Reference Range Interpretation Comments Magnesium Lvl (test code = Magnesium 1.9 1.8-2.4 Lvl) [facility] AliceKwaezxrVIRURLUECB3346-53-83 00:32:00 Test Item Value Reference Range Interpretation Comments Basophils # (test code 0.1 See_Comment [Aut omated message] The = Basophils #) system which generated this result tra nsmitted reference range : <=0.2. The reference r mirela was not used to int erpret this result as normal/abnormal . [facility] AliceQjcwzyfEGYXAXGKOU0770-52-56 00:32:00 Test Item Value Reference Range Interpretation Comments Eosinophils # (test code 0.2 See_Comment [A utomated message] The = Eosinophils #) system whic h generated this result tra nsmitted reference range : <=0.5. The reference r mirela was not used to int erpret this result as normal/abnormal . [facility] AliceYywujswYIMUMBZRQV8699-49-18 00:32:00 Test Item Value Reference Range Interpretation Comments Macrocyte (test code = 1+ *ABN*(07/22/16 Macrocyte) 7:32 PM) [facility] AliceDqprxllNWRUCGLGRM5798-86-41 00:32:00 Test Item Value Reference Range Interpretation Comments Eosinophils (test code = 2.0 See_Comment [A utomated message] The Eosinophils) system which ge nerated this result tra nsmitted reference range : <=4.0. The reference r mirela was not used to int erpret this result as normal/abnormal . [facility] AliceMwuhmiiBQTEMAVUWU2939-35-39 00:32:00 Test Item Value Reference Range Interpretation Comments Segs-Bands # (test code = Segs-Bands #) 7.7 1.5-8.1 [facility] AliceHnwcllbSRKQQQYXWV1364-18-58 00:32:00 Test Item Value Reference Range Interpretation Comments Monocytes (test code = Monocytes) 8.9 2.0-12.0 [facility] AliceNwpezmpWWGRRQEQYK7172-15-55 00:32:00 Test Item Value Reference Range Interpretation Comments Basophils (test code = 0.9 See_Comment [Aut omated message] The Basophils) system which ge nerated this result tra nsmitted reference range : <=1.0. The reference r mirela was not used to int erpret this result as normal/abnormal . [facility] AliceFavbkplMEFCROKONR6387-98-81 00:32:00 Test Item Value Reference Range Interpretation Comments Lymphocytes (test code = Lymphocytes) 14.5 20.0-40.0 [facility] AliceRrswogjLPPWTQDAGV8966-44-96 00:32:00 Test Item Value Reference Range Interpretation Comments Lymphocytes # (test code = Lymphocytes 1.5 1.0-5.5 #) [facility] AliceOazqocaHXDWJDOZLO0071-52-53 00:32:00 Test Item Value Reference Range Interpretation Comments Monocytes # (test code 0.9 See_Comment [Aut omated message] The = Monocytes #) system which generated this result tra nsmitted reference range : <=0.8. The reference r mirela was not used to int erpret this result as normal/abnormal . [facility] AlicePggtabxMUROESHYMM1814-87-26 00:32:00 Test Item Value Reference Range Interpretation Comments Segs (test code = Segs) 73.7 45.0-75.0 [facility] AliceVatypdgAGUJXSLSYH4291-62-32 00:32:00 Test Item Value Reference Range Interpretation Comments WBC (test code = WBC) 10.5 3.7-10.4 [facility] AliceDabjekhBJBCYCBEND4132-17-40 00:32:00 Test Item Value Reference Range Interpretation Comments RBC (test code = RBC) 4.03 4.70-6.10 [facility] AliceTouenlaQAYYXYJRTJ5581-82-18 00:32:00 Test Item Value Reference Range Interpretation Comments Hgb (test code = Hgb) 14.4 14.0-18.0 [facility] AliceCgmzxbtMSJZEXKBPR7152-97-86 00:32:00 Test Item Value Reference Range Interpretation Comments Hct (test code = Hct) 42.5 42.0-54.0 [facility] AliceSdkyciqRWLAGPCQEW7864-23-64 00:32:00 Test Item Value Reference Range Interpretation Comments MCV (test code = MCV) 105.6 80.0-94.0 [facility] AliceNjmemtmXIMTQLEOCP0604-10-44 00:32:00 Test Item Value Reference Range Interpretation Comments Platelet (test code = Platelet) 186 133-450 [facility] AliceFuxxacpWIILXKJENU6185-33-36 00:32:00 Test Item Value Reference Range Interpretation Comments MCH (test code = MCH) 35.9 pg 27.0-31.0 [facility] AliceFgnaibbPMATXHKALF8703-28-32 00:32:00 Test Item Value Reference Range Interpretation Comments RDW (test code = RDW) 12.4 11.5-14.5 [facility] AliceBkhayssLIDURGJTQD4974-40-07 00:32:00 Test Item Value Reference Range Interpretation Comments MPV (test code = MPV) 7.6 7.4-10.4 [facility] AliceZwjgmyfSWYNTPPZSC8086-23-32 00:32:00 Test Item Value Reference Range Interpretation Comments MCHC (test code = MCHC) 34.0 32.0-36.0 [facility]
--- NOTE | 2023-02-14 16:44 | RAD REPORT ---
EXAM DESCRIPTION: RAD - Chest Single View - 02/14/2023 4:30 pm CLINICAL HISTORY: SOB COMPARISON: Chest Single View dated 09/15/2022; Chest Single View dated 06/05/2022; Abdomen 1 View ([facility] B) dated 03/08/2018; Chest Pa And Lat (2 Views) dated 12/27/2016 FINDINGS: Lines: None. Lungs: No evidence of edema or pneumonia. Pleural: No significant pleural effusions or pneumothorax. Cardiac: The heart size is within normal limits. Mediastinum: Within normal limits. Bones: No acute fractures. Other: None IMPRESSION: No acute cardiopulmonary disease.
[2023-02-14] MEDS ORDERED: METHYLPREDNISOLONE 125 MG INJ ONE (18:00)
[2023-02-14] MEDS ORDERED: ACETAMINOPHEN 500 MG TAB ONE (18:24)
[2023-02-14] MEDS ORDERED: TRAMADOL HCL 50 MG TAB ONE (18:25)
[2023-02-14 18:31] LABS: Absolute Lymphocytes (CBC) 1.4 K/uL (0.7-4.9); Hematocrit 36.6 % (39.6-49.0); Lymphocytes % 8.8 % (15.3-44.8); MPV 7.8 fL (7.6-11.3)
[2023-02-14 18:33] LABS: Protime INR 1.1
[2023-02-14 18:49] LABS: Albumin 2.8 g/dL (3.4-5.0); Bilirubin Direct 0.2 mg/dL (0-0.2); Bilirubin Total 0.6 mg/dL (0.2-1.0); Magnesium 2.3 mg/dL (1.6-2.4); Potassium 4.3 mEq/L (3.5-5.1); Protein, Total 6.8 g/dL (6.4-8.2); Troponin High Sensitivity 10.1 pg/mL (<58.9)
[2023-02-14] MEDS ORDERED: CEFTRIAXONE 1000 MG/VIAL ONE (19:18)
--- NOTE | 2023-02-14 19:37 | EDPHYS ---
Physician Documentation [facility] Name: Salazar Duong Age: 87 yrs Sex: Male : 1935 Arrival Date: 02/14/2023 Time: 16:09 Bed 13 Private MD: ED Physician Martin Benítez HPI: 02/14 16:20 This 87 yrs old Male presents to ER via EMS with complaints of Breathing Difficulty. jmm 16:20 The patient has shortness of breath at rest. Onset: The symptoms/episode began/occurred jmm gradually, 2 week(s) ago. Duration: The symptoms are continuous. The patient's shortness of breath is aggravated by nothing, is alleviated by. Is an 87-year-old male with history of COPD, hypertension, hypothyroidism the presents emerged part with complaints of progressively worsening shortness of breath over the past 2 weeks. Patient was evaluated telemedicine whom had concerns that the patient was having difficulty breathing and advised to go to the ER for further evaluation.. Historical: - Allergies: 16:25 IV contrast (Hives); ph 18:09 Iodine; ph - PMHx: 16:25 BPH; COPD; covid x 2 weeks ago; Hypertension; Hypothyroidism; Osteoporosis; Prostate ph Cancer; - Immunization history:: Adult Immunizations unknown. - Social history:: Smoking status: unknown. ROS: 16:20 Constitutional: Negative for fever, chills, and weight loss, Cardiovascular: Negative jmm for chest pain, palpitations, and edema, Respiratory: Negative for shortness of breath, cough, wheezing, and pleuritic chest pain. 16:20 Respiratory: Positive for cough, shortness of breath, wheezing. 16:20 All other systems are negative. 16:20 All other systems are negative. Exam: 16:20 Constitutional: This is a well developed, well nourished patient who is awake, alert, jmm and in no acute distress. Head/Face: atraumatic. Eyes: EOMI, no conjunctival erythema appreciated ENT: Moist Mucus Membranes Neck: Trachea midline, Supple Chest/axilla: Normal chest wall appearance and motion. Cardiovascular: Regular rate and rhythm. No edema appreciated 16:20 Abdomen/GI: Non distended Back: Normal ROM Skin: General appearance color normal MS/ Extremity: Moves all extremities, no obvious deformities appreciated, no edema noted to the lower extremities Neuro: Awake and alert Psych: Behavior is normal, Mood is normal, Patient is cooperative and pleasant 16:20 Respiratory: Diffuse wheezing appreciated. Vital Signs: 16:19 BP 160 / 81; Pulse 84; Resp 26; Temp 98.5; Pulse Ox 98% on R/A; Weight 52.16 kg; Height ph 5 ft. 6 in. ; 18:07 BP 156 / 77; Pulse 86; Resp 18; Pulse Ox 98% on R/A; ph 16:19 Body Mass Index 18.56 (52.16 kg, 167.64 cm) ph MDM: 16:20 Patient medically screened. kb 22:23 Differential diagnosis: CHF exacerbation, Chronic Obstructive Pulmonary Disease [facility] pneumonia. Data reviewed: vital signs, nurses notes, lab test result(s), EKG, radiologic studies, plain films. Consideration of Admission/Observation Patient was admitted/placed on observation. Management of patient was discussed with the following: Hospitalist: Shayy Goodson PA-C. I considered the following discharge prescriptions or medication management in the emergency department Medications were administered in the Emergency Department. See MAR. Counseling: I had a detailed discussion with the patient and/or guardian regarding: the historical points, exam findings, and any diagnostic results supporting the discharge/admit diagnosis, lab results, radiology results, the need for further work-up and treatment in the hospital. 02/14 16:21 Order name: Basic Metabolic Panel; Complete Time: 18:50 [facility] 02/14 16:21 Order name: CBC with Diff; Complete Time: 18:34 [facility] 02/14 16:21 Order name: LFT's; Complete Time: 18:50 [facility] 02/14 16:21 Order name: Magnesium; Complete Time: 18:50 [facility] 02/14 16:21 Order name: NT PRO-BNP; Complete Time: 18:50 [facility] 02/14 16:21 Order name: PT-INR; Complete Time: 18:34 [facility] 02/14 16:21 Order name: Troponin HS; Complete Time: 18:50 [facility] 02/14 16:27 Order name: Blood Culture Adult (2) [facility] 02/14 16:27 Order name: Lactate w/ 2H reflex if indic.; Complete Time: 18:50 [facility] 02/14 18:50 Order name: Urinalysis w/ reflexes; Complete Time: 20:43 [facility] 02/14 19:21 Order name: SARS RAPID; Complete Time: 20:43 [facility] 02/14 19:21 Order name: Flu; Complete Time: 20:52 [facility] 02/14 16:21 Order name: XRAY Chest (1 view); Complete Time: 16:51 [facility] 02/14 22:16 Order name: CT; Complete Time: 22:20 [facility] 02/14 22:20 Order name: CT; Complete Time: 22:20 [facility] 02/14 16:21 Order name: EKG; Complete Time: 16:22 [facility] 02/14 16:21 Order name: Cardiac monitoring; Complete Time: 16:27 [facility] 02/14 16:21 Order name: EKG - Nurse/Tech; Complete Time: 18:10 [facility] 02/14 16:21 Order name: IV Saline Lock; Complete Time: 16:51 [facility] 02/14 16:21 Order name: Labs collected and sent; Complete Time: 18:10 [facility] 02/14 16:21 Order name: O2 Per Protocol; Complete Time: 16:27 [facility] 02/14 16:21 Order name: O2 Sat Monitoring; Complete Time: 16:27 [facility] Administered Medications: 18:10 Drug: MethylPrednisoLONE IVP 125 mg Route: IVP; Site: right antecubital; ph 19:24 Drug: Acetaminophen PO 500 mg Route: G-Tube; aa9 19:24 Drug: Rocephin IV 1 grams Route: IV; Rate: calculated rate; Site: right forearm; aa9 19:25 Drug: traMADol PO 50 mg Route: G-Tube; aa9 21:39 Drug: diphenhydrAMINE IVP 25 mg Route: IVP; Site: right forearm; aa9 Disposition Summary: 02/14/23 19:36 Hospitalization Ordered Hospitalization Status: Observation [facility] Location: Telemetry/MedSurg (observation) jmm Condition: Stable [facility] Problem: new jm Symptoms: are unchanged [facility] Bed/Room Type: Standard [facility] Room Assignment: 210(02/14/23 21:11) Provider: Nishant Nickerson(02/14/23 21:12) sb4 Diagnosis - COPD/ Chronic obstructive pulmonary disease with (acute) exacerbation [facility] Forms: - Medication Reconciliation Form [facility] - SBAR form [facility] Addendum: 02/16/2023 08:38 Co-signature as Attending Physician, Martin Benítez MD I reviewed the patient's care r n provided by the Advanced Practice Provider and agree with the diagnosis and treatment plan. Signatures: Dispatcher [employer] Mag Mccallum, DOM NG-Meng Fernandez PA PA jmm Nieto, Roman, MD MD rn Hall, Patricia, RN RN Crystal Carey RN RN cg Avalos, Aylin, RN RN aa9 Sarah Goodson PA-C PA-C sb4 Corrections: (The following items were deleted from the chart) 02/14 18:09 16:25 Allergies: tramadol; ph ph 21:11 19:36 radhames cg 21:12 19:36 Sarah Goodson [facility] sb4
--- NOTE | 2023-02-14 19:37 | ER ---
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 Coronavirus screen: Vaccine status: Patient reports receiving the 2nd dose of the covid vaccine. Ebola Screen: No symptoms or risks identified at this time. Initial Sepsis Screen: Does the patient meet any 2 criteria? RR > 20 per min. Does the patient have a suspected source of infection? Yes: Productive cough/pneumonia. Risk Assessment: Do you want to hurt yourself or someone else? Patient reports no desire to harm self or others. Onset of symptoms was February 14, 2023. 16:19 Method Of Arrival: EMS: [facility] 16:19 Acuity: ERMELINDA 2 ph Triage Assessment: 16:25 General: Appears in no apparent distress. uncomfortable, well groomed, Behavior is ph calm, cooperative, appropriate for age, Denies fever. Pain: Complains of pain in anterior aspect of left shoulder and neck. Neuro: Level of Consciousness is awake, alert, obeys commands, Oriented to person, place, time, situation. Cardiovascular: Capillary refill < 3 seconds in bilateral fingers Patient's skin is warm and dry. Respiratory: Reports shortness of breath at rest cough that is productive, Airway is patent Respiratory effort is labored, Respiratory pattern is tachypnea Breath sounds are coarse bilaterally. Onset: The symptoms/episode began/occurred gradually, the patient has moderate shortness of breath. GI: PEG tube in place, clamped. Site clean. Patient currently denies abdominal pain, nausea, vomiting. Derm: Skin is pink, warm \T\ dry. Musculoskeletal: Circulation, motion, and sensation intact. Range of motion: intact in all extremities, Swelling absent. Historical: - Allergies: 16:25 IV contrast (Hives); ph 18:09 Iodine; ph - PMHx: 16:25 BPH; COPD; covid x 2 weeks ago; Hypertension; Hypothyroidism; Osteoporosis; Prostate ph Cancer; - Immunization history:: Adult Immunizations unknown. - Social history:: Smoking status: unknown. Screenin:27 [facility] ED Fall Risk Assessment (Adult) History of falling in the last 3 months, ph including since admission No falls in past 3 months (0 pts) Confusion or Disorientation No (0 pts) Intoxicated or Sedated No (0 pts) Impaired Gait Yes (1 pt) Mobility Assist Device Used Yes (1 pt) Altered Elimination Yes (1 pt) Score/Fall Risk Level 0 - 2 = Low Risk Oriented to surroundings, Maintained a safe environment, Hourly rounding (assess needs \T\ fall precautionary measures) done. Abuse screen: Denies threats or abuse. Denies injuries from another. Nutritional screening: No deficits noted. Tuberculosis screening: No symptoms or risk factors identified. Assessment: 18:06 Reassessment: Patient appears in no apparent distress at this time. Patient and/or ph family updated on plan of care and expected duration. Pain level reassessed. Patient is alert, oriented x 3, equal unlabored respirations, skin warm/dry/pink. Phlebotomy at bedside for lab draw. 19:25 General: Appears uncomfortable, slender, unkempt, Behavior is cooperative, anxious. aa9 Neuro: Level of Consciousness is awake, alert, obeys commands, Oriented to person, place, time, situation. Cardiovascular: Rhythm is regular. Respiratory: Reports cough that is productive, Airway is patent Respiratory effort is even, labored. 22:52 Reassessment: Patient appears in no apparent distress at this time. Patient and/or aa9 family updated on plan of care and expected duration. Pain level reassessed. Patient is alert, oriented x 3, equal unlabored respirations, skin warm/dry/pink. report provided to receiving nurse. Vital Signs: 16:19 BP 160 / 81; Pulse 84; Resp 26; Temp 98.5; Pulse Ox 98% on R/A; Weight 52.16 kg; Height ph 5 ft. 6 in. ; 18:07 BP 156 / 77; Pulse 86; Resp 18; Pulse Ox 98% on R/A; ph 16:19 Body Mass Index 18.56 (52.16 kg, 167.64 cm) ph Vitals: 18:07 Cardiac Rhythm Assessment Regular. ph ED Course: 16:19 Patient arrived in ED. ph 16:20 Mag Duggan FNP-C is PHCP. kb 16:20 Martin Benítez MD is Attending Physician. kb 16:21 Meng Keyes PA is PHCP. kb 16:25 Triage completed. ph 16:25 Arm band placed on Patient placed in an exam room, on monitoring tech, on pulse ph oximetry. 16:27 Patient has correct armband on for positive identification. Placed in gown. Bed in low ph position. Call light in reach. Side rails up X2. Client placed on continuous cardiac and pulse oximetry monitoring. NIBP monitoring applied. 16:31 XRAY Chest (1 view) In Process Unspecified. EDMS 16:50 Sari Stevenson, RN is Primary Nurse. ph 17:18 Inserted saline lock: 22 gauge in right antecubital area, using aseptic technique. ph 18:08 No provider procedures requiring assistance completed. Maintain EMS IV. Dressing ph intact. Site clean \T\ dry. Gauge \T\ site: 20 R hand. 19:36 Sarah Goodson PA-C is Hospitalizing Provider. [facility] 21:12 Nishant Nickerson is Hospitalizing Provider. sb4 22:52 Patient admitted, IV remains in place. aa9 Administered Medications: 18:10 Drug: MethylPrednisoLONE IVP 125 mg Route: IVP; Site: right antecubital; ph 19:24 Drug: Acetaminophen PO 500 mg Route: G-Tube; aa9 19:24 Drug: Rocephin IV 1 grams Route: IV; Rate: calculated rate; Site: right forearm; aa9 19:25 Drug: traMADol PO 50 mg Route: G-Tube; aa9 21:39 Drug: diphenhydrAMINE IVP 25 mg Route: IVP; Site: right forearm; aa9 Medication: 16:27 VIS not applicable for this client. ph Outcome: 19:36 Decision to Hospitalize by Provider. jmm 22:51 Admitted to Med/surg accompanied by tech, with chart. aa9 22:51 Condition: stable 22:52 Patient left the ED. aa9 Signatures: Dispatcher [employer] EDMS Mag Duggan FNP-C SUPERVISOR ADVICE-Meng Fernandez PA PA jmm Hall, Patricia, RN RN ph Ani Lee, AMNA RN Sarah Aldana PA-C PADemond sb4 Corrections: (The following items were deleted from the chart) 18:09 16:25 Allergies: tramadol; ph ph
--- NOTE | 2023-02-14 20:05 | P.HP ---
Certification for Inpatient Patient admitted to: Observation With expected LOS: <2 Midnights Patient will require the following post-hospital care: None Practitioner: I am a practitioner with admitting privileges, knowledge of patient current condition, hospital course, and medical plan of care. Services: Services provided to patient in accordance with Admission requirements found in Title 42 Section 412.3 of the Code of Federal Regulations Patient History Date of Service: 02/14/23 Primary Care Provider: Thelma Reason for admission: COPD Exacerbation History of Present Illness: Mr. Duong is an 87 year old male with past medical history of COPD, hypertension, BPH, hypothyroidism, and prior C2-C3 fractures resulting in dyspha franklyn with PEG in place who presented to the emergency department via EMS with complaints of shortness of breath and sputum in his throat that he feels he cannot clear. Family states that they ambulate him frequently but today he could not go far without becoming very short of breath. He was not hypoxic nor requiring supplemental oxygen but he did have significant wheezing, rales, labored breathing. His chest xray was negative. Covid/flu negative. WBC is 15, although he was recently on prednisone. Chest CT showed "Small area of wedge- shaped consolidation and subpleural thickening in the right lower lobe suspected to represent an area of chronic scarring. No acute process identified within the chest." CT neck showed "Pronounced prevertebral soft tissue swelling present at about the C3 through C5 levels resulting in significant airway narrowing at the hypopharynx. Etiology of the soft tissue swelling is uncertain. It could be secondary to infection or inflammation such as from calcific longus coli tendinitis. The patient is at risk for airway compromise. No abscess identified. Could consider cervical spine MRI for further evaluation." In the emergency department, he was treated with nebs, solumedrol, and rocephin. We will admit for further management. Allergies iodine [Iodine] Allergy (Intermediate, Verified 02/14/23 23:14) Hives iv contrast Allergy (Uncoded 09/20/18 11:27) Unknown Home Medications: Aspirin [Adult Low Dose Aspirin EC] 81 mg PO DAILY 09/21/16 Finasteride [Proscar*] 5 mg PO DAILY 09/21/16 Levothyroxine [Synthroid*] 100 mcg PO [id number] 09/21/16 Budesonide/Formoterol Fumarate [Symbicort 160-4.5 Mcg Inhaler] 2 puff IH BID 09/20/18 Liothyronine Sodium [Cytomel] 5 mcg PO DAILY 09/20/18 Acetaminophen [Tylenol Extra Strength] 500 mg PO Q6HP PRN 02/14/23 Albuterol Neb [Proventil 0.083% Neb Soln] 1 amp NEB DAILY 02/14/23 Fexofenadine HCl [Leisa Allergy] 60 mg FT BID 02/14/23 Meloxicam [Mobic*] 7.5 mg PO DAILY 02/14/23 Tramadol HCl [Ultram] 50 mg FT Q6HP PRN 02/14/23 - Past Medical/Surgical History Diabetic: No -: bph -: hypertension -: hypothyroidism -: prostate cancer -: copd -: hydrocelectomy -: tonsillectomy -: PEG Psychosocial/ Personal History: Patient is . - Family History Mother -: Cancer Father -: Heart disease - Social History Smoking Status: Former smoker Alcohol use: No CD- Drugs: No Caffeine use: No Place of Residence: Home Review of Systems Respiratory: Shortness of Breath, Sputum, Wheezing Physical Examination - Vital Signs Temperature: 98.5 F Blood Pressure: 156/77 Pulse: 86 Respirations: 18 Pulse Ox (%): 98 - Physical Exam General: Alert, In no apparent distress HEENT: Atraumatic, PERRLA, EOMI, Sclerae nonicteric Neck: Supple, 2+ carotid pulse no bruit Respiratory: Crackles/rales, Expiratory wheezes Cardiovascular: Regular rate/rhythm, Normal S1 S2 Gastrointestinal: Normal bowel sounds, No tenderness Musculoskeletal: No tenderness Integumentary: No rashes Neurological: Sensation intact, Normal affect - Studies Laboratory Data (last 24 hrs) 02/14/23 18:11: PT 12.1, INR 1.10 02/14/23 18:11: WBC 15.60 H, Hgb 12.0 L, Hct 36.6 L, Plt Count 313 02/14/23 18:11: Sodium 135 L, Potassium 4.3, BUN 19 H, Creatinine 0.56 L, Glucose 108 H, Magnesium 2.3, Total Bilirubin 0.6, AST 11 L, ALT 16, Alkaline Phosphatase 101 Assessment and Plan - Problems (Diagnosis) (1) COPD with acute exacerbation Current Visit: Yes Status: Acute (2) HTN (hypertension) Current Visit: Yes Status: Chronic Qualifiers: Hypertension type: primary hypertension Qualified Code(s): I10 - Essential (primary) hypertension (3) Hypothyroidism Current Visit: Yes Status: Chronic Qualifiers: Hypothyroidism type: unspecified Qualified Code(s): E03.9 - Hypothyroidism, unspecified (4) Dysphagia Current Visit: Yes Status: Chronic Qualifiers: Dysphagia type: unspecified Qualified Code(s): R13.10 - Dysphagia, unspecified (5) Narrowing of airway Current Visit: Yes Status: Chronic (6) PEG (percutaneous endoscopic gastrostomy) status Current Visit: Yes Status: Chronic - Plan Patient is admitted for further management of COPD exacerbation. Chest CT suggestive of chronic scarring versus acute process. Will start levaquin as he is high risk with narrowed airway. Blood cultures obtained. Obtain sputum culture. Patient frequently suctioning white secretions from his throat. NPO. He does not eat or drink anything by mouth. Resume PEG feeds. Monitor pulse oximetry closely. Scheduled IV solumedrol and nebs. Monitor and replete electrolytes per protocol. Reconcile and continue home medications. VTE prophylaxis. Full code. Discharge Plan: Home Plan to discharge in: 24 Hours - Advance Directives Does patient have a Living Will: No Does patient have a Durable POA for Healthcare: No - Code Status/Comfort Care Code Status Assessed: Yes Code Status: Full Code Physician Review: Patient Assessed, Agree with Above Assessment and Plan Critical Care: No Time Spent Managing Pts Care (In Minutes): 50
[2023-02-14 20:31] LABS: Specific Gravity 1.015 (1.005-1.030); Urine Bacteria None Seen /HPF (<20); Urine Bilirubin NEGATIVE (Negative); Urine Blood Negative (Negative); Urine Clarity Turbid (Clear); Urine Color Light-Yellow (Yellow); Urine Glucose NEGATIVE (Negative); Urine Mucus Slight /HPF (None Seen); Urine Protein NEGATIVE (Negative); Urine Urobilinogen Normal (Normal); Urine pH 7.5 (5.0-7.0)
[2023-02-14 20:38] LABS: SARS-CoV-2 Antigen Rapid Res Negative (Negative)
[2023-02-14] MEDS ORDERED: DIPHENHYDRAMINE 50 MG/ML VIAL ONE (21:35)
[2023-02-14] MEDS ORDERED: ONDANSETRON 4 MG/2 ML VIAL IV PRN (21:41)
[2023-02-14] MEDS ORDERED: IPRATROPIUM BROM 0.5MG/2.5ML NEB PRN (21:41)
[2023-02-14] MEDS ORDERED: ALBUTEROL 2.5 MG/3 ML NEB SOL NEB PRN (21:41)
[2023-02-14] MEDS ORDERED: ACETAMINOPHEN 500 MG TAB PO PRN (21:41)
--- NOTE | 2023-02-14 22:15 | RAD REPORT ---
EXAM DESCRIPTION: CT - Soft Tissue Neck W/Contr CLINICAL HISTORY: labored breathing, sputum, esophageal dysmotility COMPARISON: Head C Spine Mpr Wo Con dated 09/15/2022; Head C Spine Mpr Wo Con dated 07/22/2016; Thorac ic Spine W/o Cont dated 07/22/2016; [id number] dated 12/20/2011; Thorax W/ Con dated 02/14/[address] scans are performed using dose optimization technique as appropriate and may includ e automated exposure control or mA/KV adjustment according to patient size. FINDINGS: There is significant airway narrowing is secondary to prevertebral edema which extends fro m about the C3 level through C5. The airway is displaced anteriorly. No fluid collections identified. Compression deformities are present at C7, T1, and T2 better presumably chronic. The parotid and sub mandibular glands are intact. Heterogeneous thyroid. Lung apices are clear. The epiglottis is normal in caliber. Multilevel cervical spondylosis is noted. Remote left proximal humerus fracture. Carotid artery calcifications. IMPRESSION: Pronounced prevertebral soft tissue swelling present at about the C3 through C5 levels r esulting in significant airway narrowing at the hypopharynx. Etiology of the soft tissue swelling is uncertain. It could be secondary to infection or inflammation such as from calcific longus coli tendi nitis. The patient is at risk for airway compromise. No abscess identified. Could consider cervical s pine MRI for further evaluation.
--- NOTE | 2023-02-14 22:18 | RAD REPORT ---
EXAM DESCRIPTION: CT - Thorax W/ Con - 02/14/2023 9:48 pm CLINICAL HISTORY: labored breathing, sputum COMPARISON: Head C Spine Mpr Wo Con dated 09/15/2022; Stone Protocol dated 09/21/2016 TECHNIQUE: CT of the chest was obtained with IV contrast. All CT scans are performed using dose optimization technique as appropriate and may include automated exposure control or mA/KV adjustment according to patient size. FINDINGS: Chest Wall: No suspicious thyroid nodules or pathologic lymphadenopathy. Lungs: Small focus of consolidation in the right lower lobe with associated bronchiectasis is favored chronic. There is some underlying pleural thickening . This could be round atelectasis or scarring. Pleura: No significant effusions or pneumothorax. Mediastinum/brittani: No pathologic lymphadenopathy. Pulmonary arteries/Aorta: No filling defect identified. No aortic aneurysm. Heart: No significant pericardial effusion. Normal heart size. Multi-vessel coronary disease . Upper abdomen: Benign-appearing low-density lesion right hepatic lobe. Bones: Multiple thoracic compression fractures. The T12 compression fracture is favored subacute has approximately 30% loss of height anteriorly. The T1, T4, and T5 compression fractures are favored chr onic. IMPRESSION: Small area of wedge-shaped consolidation and subpleural thickening in the right lower lo be suspected to represent an area of chronic scarring. No acute process identified within the chest .
[2023-02-14] MEDS ORDERED: MORPHINE 2 MG/ML SYR IV PRN (23:59)
[2023-02-15] MEDS ORDERED: ALBUTEROL 2.5 MG/3 ML NEB SOL NEB SCH
[2023-02-15] MEDS ORDERED: IPRATROPIUM BROM 0.5MG/2.5ML NEB SCH
[2023-02-15] MEDS: Levofloxacin500mg IV 500 MG/100 ML BAG IV SCH ×2 (00:07→23:08)
[2023-02-15] MEDS: METHYLPREDNISOLONE 40 MG INJ IV SCH ×3 (00:10→17:26)
[2023-02-15] MEDS: TRAMADOL HCL 50 MG TAB FT PRN ×3 (00:40→23:09)
[2023-02-15 01:15] VITALS: BMI 19.4
[2023-02-15] MEDS: ALBUTEROL 2.5 MG/3 ML NEB SOL NEB SCH ×4 (02:00→20:00)
[2023-02-15] MEDS: IPRATROPIUM BROM 0.5MG/2.5ML NEB SCH ×4 (02:40→20:00)
[2023-02-15] MEDS: ACETYLCYST 20% 4 ML VIAL IH SCH ×4 (02:40→20:00)
[2023-02-15] MEDS ORDERED: ACETYLCYST 20% 800 MG/4 ML VIAL ONE (03:10)
[2023-02-15 03:52] LABS: Absolute Lymphocytes (CBC) 0.2 K/uL (0.7-4.9); Hematocrit 38.2 % (39.6-49.0); Lymphocytes % 1.9 % (15.3-44.8); MCV 99.2 fL (80-100); MPV 7.6 fL (7.6-11.3); RBC Red Blood Cell Count 3.85 M/uL (4.33-5.43)
[2023-02-15 04:13] LABS: Magnesium 2.3 mg/dL (1.6-2.4); Phosphorus 3.3 mg/dL (2.5-4.9); Potassium 4.1 mEq/L (3.5-5.1)
[2023-02-15 05:07] LABS: Blood Morphology Comment NOT SEEN (NOT SEEN); Platelet Estimate ADEQ
[2023-02-15] MEDS: LEVOTHYROXINE SOD 0.1 MG TAB FT SCH (05:22)
[2023-02-15] MEDS: MELOXICAM 7.5 MG TAB FT SCH (09:06)
[2023-02-15] MEDS: LIOTHYRONINE SOD 5 MCG TAB FT SCH (09:06)
--- NOTE | 2023-02-15 13:36 | P.PN ---
Subjective Date of Service: 02/15/23 Primary Care Provider: Thelma Chief Complaint: COPD Exacerbation Patient reports dyspnea on exertion. He has been constantly suctioning his throat. Daughter reports patient recently developed flulike symptoms, and nasal congestion which exacerbated his respiratory condition. No recorded fever. Physical Examination - Vital Signs Temperature: 98.1 F Blood Pressure: 142/72 Pulse: 88 Respirations: 18 Pulse Ox (%): 97 - Studies Laboratory Data (last 24 hrs) 02/14/23 18:11: PT 12.1, INR 1.10 02/14/23 18:11: WBC 15.60 H, Hgb 12.0 L, Hct 36.6 L, Plt Count 313 02/14/23 18:11: Sodium 135 L, Potassium 4.3, BUN 19 H, Creatinine 0.56 L, Glucose 108 H, Magnesium 2.3, Total Bilirubin 0.6, AST 11 L, ALT 16, Alkaline Phosphatase 101 Assessment And Plan - Plan Physical Exam General: Alert, In no apparent distress, cachectic HEENT: Atraumatic, PERRLA, EOMI, Sclerae nonicteric Neck: Supple, 2+ carotid pulse, no elevated JVD Respiratory: Clear to auscultation, mild scattered wheezes. Cardiovascular: Regular rate/rhythm, Normal S1 S2, no edema. Gastrointestinal: Normal bowel sounds, No tenderness Musculoskeletal: No tenderness Integumentary: No rashes Neurological: Sensation intact, Normal affect. Diagnosis Shortness of breath Narrowing upper airway at risk of respiratory compromise. History of dysphagia Status post PEG COPD exacerbation Hypothyroidism Plan: Continue current bronchodilators, steroid, antibiotics. CT chest result reviewed and report chronic changes, no acute changes or pneumonia. Influenza screen negative Check procalcitonin. ENT consulted to evaluate patient air way. Continue PEG tube feeding, watch for aspiration. Continue home medications for hypothyroidism.
--- NOTE | 2023-02-15 14:07 | EKG ---
Test Date: 2023-02-14 Test Time: 18:01:36 Intermission Coordinator: PH MEASUREMENT RESULTS: Intervals: Rate: 87 [place]: 162 QRSD: 112 QT: 360 QTc: 433 [place]: P: 55 AZ: 162 QRS: -61 T: 79 INTERPRETIVE STATEMENTS: Normal sinus rhythm Left anterior fascicular block Septal infarct, age undetermined Abnormal ECG Compared to ECG 09/15/2022 18:10:33 Atrial premature complex(es) no longer present Right bundle-branch block no longer present Bifascicular block no longer present Myocardial infarct finding still present Electronically Signed On 02-15-23 14:06:18 CDT by Colby Rutherford
[2023-02-15] MEDS: [UNRECOGNIZED DRUG - REMARK] FT SCH (20:31)
[2023-02-15] MEDS ORDERED: [UNRECOGNIZED DRUG - REMARK] FT SCH (21:00)
[2023-02-15] MEDS: ACETAMINOPHEN 500 MG TAB FT PRN (23:08)
[2023-02-16] MEDS: METHYLPREDNISOLONE 40 MG INJ IV SCH ×3 (00:35→17:03)
[2023-02-16] MEDS: IPRATROPIUM BROM 0.5MG/2.5ML NEB SCH ×4 (02:00→19:59)
[2023-02-16] MEDS: ALBUTEROL 2.5 MG/3 ML NEB SOL NEB SCH ×4 (02:00→19:59)
[2023-02-16] MEDS: ACETYLCYST 20% 4 ML VIAL IH SCH ×4 (02:00→19:59)
[2023-02-16 03:53] LABS: Absolute Lymphocytes (CBC) 0.6 K/uL (0.7-4.9); Hematocrit 35.5 % (39.6-49.0); Lymphocytes % 3.3 % (15.3-44.8); MCV 98.3 fL (80-100); MPV 7.9 fL (7.6-11.3); RBC Red Blood Cell Count 3.61 M/uL (4.33-5.43)
[2023-02-16 04:15] LABS: Potassium 4.9 mEq/L (3.5-5.1)
[2023-02-16] MEDS: LEVOTHYROXINE SOD 0.1 MG TAB FT SCH (05:35)
[2023-02-16] MEDS: ACETAMINOPHEN 500 MG TAB FT PRN ×3 (07:12→22:26)
[2023-02-16] MEDS: TRAMADOL HCL 50 MG TAB FT PRN ×3 (07:13→22:25)
[2023-02-16] MEDS: LIOTHYRONINE SOD 5 MCG TAB FT SCH (08:53)
[2023-02-16] MEDS: [UNRECOGNIZED DRUG - REMARK] FT SCH ×2 (08:54→22:27)
[2023-02-16] MEDS: MELOXICAM 7.5 MG TAB FT SCH (08:54)
[2023-02-16] MEDS: FINASTERIDE 5 MG TAB PO SCH (08:55)
--- NOTE | 2023-02-16 12:22 | CON ---
Date of Consultation: 02/15/2023 Chief Complaint: Dysphagia. History Of Present Illness: The patient is a pleasant 87-year-old male, who fractured his cervical s pine in September 2022. Most of the history was obtained from the daughter. She states that he broke his neck and opted to wear a neck brace as opposed to getting his fractures repaired. He wore the n david brace for the prescribed time, but in the past 1-2 months, the patient has been having progressiv e dysphagia, which resulted in the placement of a PEG tube as he could not tolerate solid foods witho ut foods getting stuck in his esophagus. He then had some labored breathing with increased sputum pr oduction. Thus, he was admitted to the hospital for evaluation and ENT was consulted. Upon arrival to bedside, the patient is comfortable with his head elevated with no evidence of chest retractions o r labored breathing or work of breathing. The patient's saturations are 100% on room air. He is als o able to speak, although his voice is somewhat muffled. He has no pain and he denies dyspnea or sor e throat. No other ENT complaints today. Past Medical History: Please refer to the chart as I am unable to get on [employer]. Medications: Please refer to the MAR. Past Surgical History: Please refer to the MAR. Review of Systems: Throat positive for dysphagia. Physical Examination: Vital Signs: Stable. General: The patient is in no acute distress. Head: Atraumatic, normocephalic. Eyes: PERRLA/EOMI. Nose: Moist intranasal mucosa. Midline septum. Ears: Bilateral external auditory canals patent. Tympanic membranes intact. Oral cavity: The patient has adequate gag reflex and he protrudes the tongue adequately and orophary nx is intact. No exudate or swelling. Neck: Neck is supple. Trachea midline. CT scan of soft tissue neck with contrast dated 02/14/2023 demonstrates a marked prevertebral soft ti ssue swelling present at about the levels of C3 through C5, which narrows the airway at the hypophary nx. I reviewed the films myself and agree with the findings on Radiology. Verbal consent was given for flexible laryngoscopy. The patient was placed into a sniffing position and after the scope was lubricated, I advanced along the left nasal cavity on the floor toward the na sopharynx. Having the patient's sniff, I was able to advance into the hypopharynx, which was patent. There was some narrowing noted posteriorly. No evidence of mucosal irritation, ulceration, or exud ate and the airway was moderately narrowed, but still patent. I was able to advance to the level of the vocal folds and subglottis, and the airway was patent at that level. The scope was withdrawn, th e patient tolerated well. Diagnosis: Dysphagia secondary to prevertebral swelling, questionable fluid collection. Recommendations: 1.Spinal Surgery consult. 2.The patient's airway is stable at this time and we will monitor closely. If worsens, then need to consider a surgical airway, but at this time he is stable. 3.Continue PEG feeds as prescribed. 4.We will continue to monitor as needed. Thank you, Dr. Nickerson, for this most interesting consultation. VINI/TEODORA Voice ID: [id number] Report ID: [id number]
--- NOTE | 2023-02-16 16:59 | P.PN ---
Subjective Date of Service: 02/16/23 Primary Care Provider: Thelma Chief Complaint: COPD Exacerbation Patient has no new complaint today. He states he feels better. He reported less secretions in her mouth and throat. He is tolerating PEG tube feeding. No recorded fever. Physical Examination - Vital Signs Temperature: 98.3 F Blood Pressure: 119/59 Pulse: 87 Respirations: 16 Pulse Ox (%): 97 - Studies Laboratory Data (last 24 hrs) 02/16/23 02:36: Sodium 134 L, Potassium 4.9 D, BUN 33 H, Creatinine 0.61 L, Glucose 120 H 02/16/23 02:36: WBC 17.40 H, Hgb 12.0 L, Hct 35.5 L, Plt Count 331 Microbiology Data (last 24 hrs): 02/15/23 03:55 Sputum Sputum Gram Stain - Final Assessment And Plan - Plan Physical Exam General: Alert, In no apparent distress, cachectic HEENT: Atraumatic, PERRLA, EOMI, Sclerae nonicteric Neck: Supple, 2+ carotid pulse, no elevated JVD Respiratory: Clear to auscultation, mild scattered wheezes. Cardiovascular: Regular rate/rhythm, Normal S1 S2, no edema. Gastrointestinal: Normal bowel sounds, No tenderness Musculoskeletal: No tenderness Integumentary: No rashes Neurological: Sensation intact, Normal affect. Diagnosis Shortness of breath Narrowing upper airway at risk of respiratory compromise. History of dysphagia Status post PEG COPD exacerbation Hypothyroidism Plan: Continue current bronchodilators, steroid, antibiotics. CT chest result reviewed and report chronic changes, no acute changes or pneumonia. Influenza screen negative ENT consulted to evaluate patient's air way. Dr. Ramirez confirmed narrowing air way-likely related to his cervical fractures causing soft tissue swelling or possible hematoma. Dr. Ramirez recommended transfer for spine surgeon evaluation. Transfer to [facility] initiated. ICU placement recommended, waiting for bed. Continue PEG tube feeding, watch for aspiration. Continue home medications for hypothyroidism.
[2023-02-16] MEDS: Levofloxacin500mg IV 500 MG/100 ML BAG IV SCH (22:25)
[2023-02-16] MEDS: dexAMETHasone 10 MG/ML VIAL IV SCH (23:11)
[2023-02-17] MEDS: ALBUTEROL 2.5 MG/3 ML NEB SOL NEB SCH ×4 (02:00→20:10)
[2023-02-17] MEDS: IPRATROPIUM BROM 0.5MG/2.5ML NEB SCH ×4 (02:00→20:00)
[2023-02-17] MEDS: ACETYLCYST 20% 4 ML VIAL IH SCH ×4 (02:00→20:00)
[2023-02-17] MEDS: LEVOTHYROXINE SOD 0.1 MG TAB FT SCH (04:58)
[2023-02-17] MEDS: TRAMADOL HCL 50 MG TAB FT PRN ×3 (04:58→19:13)
[2023-02-17] MEDS: ACETAMINOPHEN 500 MG TAB FT PRN ×3 (04:58→19:12)
[2023-02-17 07:36] LABS: Absolute Lymphocytes (CBC) 0.3 K/uL (0.7-4.9); Hematocrit 37.5 % (39.6-49.0); Lymphocytes % 2.1 % (15.3-44.8); MCV 99.3 fL (80-100); MPV 7.9 fL (7.6-11.3); RBC Red Blood Cell Count 3.77 M/uL (4.33-5.43)
[2023-02-17 07:50] LABS: Potassium 4.7 mEq/L (3.5-5.1)
[2023-02-17] MEDS: LIOTHYRONINE SOD 5 MCG TAB FT SCH (08:17)
[2023-02-17] MEDS: dexAMETHasone 10 MG/ML VIAL IV SCH ×2 (08:17→20:59)
[2023-02-17] MEDS: MELOXICAM 7.5 MG TAB FT SCH (08:18)
[2023-02-17] MEDS: [UNRECOGNIZED DRUG - REMARK] FT SCH ×2 (08:18→20:57)
[2023-02-17] MEDS: FINASTERIDE 5 MG TAB PO SCH (08:18)
--- NOTE | 2023-02-17 13:59 | P.PN ---
Subjective Date of Service: 02/17/23 Primary Care Provider: Thelma Chief Complaint: COPD Exacerbation Patient has no new complaint. He has been wearing the cervical collar intermittently. He is tolerating PEG tube feeding.. Physical Examination - Vital Signs Temperature: 97.7 F Blood Pressure: 126/63 Pulse: 66 Respirations: 14 Pulse Ox (%): 97 - Studies Microbiology Data (last 24 hrs): 02/15/23 03:55 Sputum Sputum Gram Stain - Final Assessment And Plan - Plan Physical Exam General: Alert, In no apparent distress, cachectic HEENT: Sclerae nonicteric Neck: Supple, 2+ carotid pulse, no elevated JVD Respiratory: Clear to auscultation, mild scattered wheezes. Cardiovascular: Regular rate/rhythm, Normal S1 S2, no edema. Gastrointestinal: Normal bowel sounds, No tenderness Musculoskeletal: No tenderness Integumentary: No rashes Neurological: Sensation intact, Normal affect. Diagnosis Shortness of breath Narrowing upper airway at risk of respiratory compromise. History of dysphagia Status post PEG COPD exacerbation Hypothyroidism Plan: Continue current bronchodilators, steroid, antibiotics. CT chest result reviewed and report chronic changes, no acute changes or pneumonia. Influenza screen negative ENT consulted to evaluate patient's air way. Dr. Ramirez confirmed narrowing air way-likely related to his cervical fractures causing soft tissue swelling or possible hematoma. Dr. Ramirez recommended transfer for spine surgeon evaluation. Transfer to [facility]. ICU placement recommended, waiting for bed. Cervical collar and dexamethasone recommended by ENT. Continue PEG tube feeding, watch for aspiration. Continue home medications for hypothyroidism.
[2023-02-17] MEDS: LIDOCAINE 4% PATCH TOP SCH (17:21)
[2023-02-18] MEDS: ACETAMINOPHEN 500 MG TAB FT PRN (00:14)
[2023-02-18] MEDS: Levofloxacin500mg IV 500 MG/100 ML BAG IV SCH (00:15)
[2023-02-18] MEDS: ALBUTEROL 2.5 MG/3 ML NEB SOL NEB SCH ×4 (01:20→20:00)
[2023-02-18] MEDS: ACETYLCYST 20% 4 ML VIAL IH SCH ×4 (01:52→20:00)
[2023-02-18] MEDS: IPRATROPIUM BROM 0.5MG/2.5ML NEB SCH ×4 (01:52→20:00)
[2023-02-18] MEDS: LEVOTHYROXINE SOD 0.1 MG TAB FT SCH (06:18)
[2023-02-18] MEDS: [UNRECOGNIZED DRUG - REMARK] FT SCH ×2 (08:24→22:15)
[2023-02-18] MEDS: LIDOCAINE 4% PATCH TOP SCH (08:24)
[2023-02-18] MEDS: dexAMETHasone 10 MG/ML VIAL IV SCH ×2 (08:25→22:15)
[2023-02-18] MEDS: FINASTERIDE 5 MG TAB PO SCH (08:25)
[2023-02-18] MEDS: LIOTHYRONINE SOD 5 MCG TAB FT SCH (08:25)
[2023-02-18] MEDS: MELOXICAM 7.5 MG TAB FT SCH (08:35)
[2023-02-18] MEDS ORDERED: LIDOCAINE 4% PATCH TOP SCH (09:00)
[2023-02-18] MEDS: CEFEPIME 2 GM in NA CHLORIDE 0.9% 100 ML IV SCH ×2 (13:22→22:15)
[2023-02-18 20:32] VITALS: O2SAT 96
[2023-02-18 21:06] VITALS: BP 146/67; TEMP 99.1
[2023-02-19] MEDS: ALBUTEROL 2.5 MG/3 ML NEB SOL NEB SCH (02:00)
[2023-02-19] MEDS: ACETYLCYST 20% 4 ML VIAL IH SCH (02:00)
[2023-02-19] MEDS: IPRATROPIUM BROM 0.5MG/2.5ML NEB SCH (02:00)
--- NOTE | 2023-02-19 03:48 | P.DS ---
Admission Date: 02/16/23 Discharge Date: 02/19/23 Primary Care Provider: Thelma Reason for Admission: COPD Exacerbation Consultations: ENT- Dr. Ramirez - Problems (1) COPD with acute exacerbation Status: Acute (2) HTN (hypertension) Status: Chronic Qualifiers: Hypertension type: primary hypertension Qualified Code(s): I10 - Essential (primary) hypertension (3) Hypothyroidism Status: Chronic Qualifiers: Hypothyroidism type: unspecified Qualified Code(s): E03.9 - Hypothyroidism, unspecified (4) Dysphagia Status: Chronic Qualifiers: Dysphagia type: unspecified Qualified Code(s): R13.10 - Dysphagia, unspecified (5) Narrowing of airway Status: Chronic (6) PEG (percutaneous endoscopic gastrostomy) status Status: Chronic Brief History of Present Illness: Mr. Duong is an 87 year old male with past medical history of COPD, hypertension, BPH, hypothyroidism, and prior C2-C3 fractures resulting in dysphagia with PEG in place who presented to the emergency department via EMS with complaints of shortness of breath and sputum in his throat that he feels he cannot clear. Family states that they ambulate him frequently but today he could not go far without becoming very short of breath. He was not hypoxic nor requiring supplemental oxygen but he did have significant wheezing, rales, labored breathing. His chest xray was negative. Covid/flu negative. WBC is 15, although he was recently on prednisone. Chest CT showed "Small area of wedge- shaped consolidation and subpleural thickening in the right lower lobe suspected to represent an area of chronic scarring. No acute process identified within the chest." CT neck showed "Pronounced prevertebral soft tissue swelling present at about the C3 through C5 levels resulting in significant airway narrowing at the hypopharynx. Etiology of the soft tissue swelling is uncertain. It could be secondary to infection or inflammation such as from calcific longus coli tendinitis. The patient is at risk for airway compromise. No abscess identified. Could consider cervical spine MRI for further evaluation." In the emergency department, he was treated with nebs, solumedrol, and rocephin. We will admit for further management. Hospital Course: Patient was treated with bronchodilators, steroid, and antibiotics. CT chest result reviewed and report chronic changes, no acute changes or pneumonia.ENT consulted to evaluate patient's air way. Dr. Ramirez confirmed narrowing air way- likely related to his cervical fractures causing soft tissue swelling or possible hematoma. Dr. Ramirez recommended transfer for spine surgeon evaluation. Cervical collar and dexamethasone recommended by ENT. Transfer to [facility] initiated and accepted, to ICU. <Sarah Goodson - Last Filed: 02/19/23 03:52> Admission Date: 02/16/23 Discharge Date: 02/20/23 Hospital Course: Patient was accepted to [facility] Neurology floor. <adán lara - Last Filed: 02/20/23 15:45> Disposition: TRANSFER TO [facility] Discharge Condition: FAIR Vital Signs/Physical Exam: Temp Pulse Resp BP Pulse Ox 99.1 F 86 17 146/67 H 97 02/19/23 00:00 02/19/23 00:00 02/19/23 00:00 02/19/23 00:00 02/19/23 00:00 General: Alert, In no apparent distress, Cachectic HEENT: Atraumatic, Normocephalic Neck: Supple Respiratory: Other (Scattered wheezes) Cardiovascular: No edema, Regular rate/rhythm Gastrointestinal: Soft and benign, Non-distended Musculoskeletal: No clubbing Integumentary: No rashes, No breakdown Neurological: Sensation intact, Normal affect Laboratory Data at Discharge: WBC 15.00 thou/uL (4.3-10.9) H 02/17/23 07:07 Hgb 12.4 g/dL (13.6-17.9) L 02/17/23 07:07 Hct 37.5 % (39.6-49.0) L 02/17/23 07:07 Plt Count 373 thou/uL (152-406) 02/17/23 07:07 PT 12.1 SECONDS (9.5-12.5) 02/14/23 18:11 INR 1.10 02/14/23 18:11 Sodium 133 mEq/L (136-145) L 02/17/23 07:07 Potassium 4.7 mEq/L (3.5-5.1) 02/17/23 07:07 BUN 40 mg/dL (7-18) H 02/17/23 07:07 Creatinine 0.66 mg/dL (0.70-1.30) L 02/17/23 07:07 Glucose 100 mg/dL (74-106) 02/17/23 07:07 Phosphorus 3.3 mg/dL (2.5-4.9) 02/15/23 03:27 Magnesium 2.3 mg/dL (1.6-2.4) 02/15/23 03:27 Total Bilirubin 0.6 mg/dL (0.2-1.0) 02/14/23 18:11 AST 11 U/L (15-37) L 02/14/23 18:11 ALT 16 U/L (16-61) 02/14/23 18:11 Alkaline Phosphatase 101 U/L (45-117) 02/14/23 18:11 Triglycerides 39 mg/dL (<150) 02/15/23 03:27 Cholesterol 117 mg/dL (<200) 02/15/23 03:27 HDL Cholesterol 57 mg/dL (40-60) 02/15/23 03:27 Cholesterol/HDL Ratio 2.05 02/15/23 03:27 <Sarah Goodson - Last Filed: 02/19/23 03:52> Vital Signs/Physical Exam: Temp Pulse Resp BP Pulse Ox 99.1 F 86 17 146/67 H 97 02/19/23 00:00 02/19/23 00:00 02/19/23 00:00 02/19/23 00:00 02/19/23 00:00 Laboratory Data at Discharge: WBC 15.00 thou/uL (4.3-10.9) H 02/17/23 07:07 Hgb 12.4 g/dL (13.6-17.9) L 02/17/23 07:07 Hct 37.5 % (39.6-49.0) L 02/17/23 07:07 Plt Count 373 thou/uL (152-406) 02/17/23 07:07 PT 12.1 SECONDS (9.5-12.5) 02/14/23 18:11 INR 1.10 02/14/23 18:11 Sodium 133 mEq/L (136-145) L 02/17/23 07:07 Potassium 4.7 mEq/L (3.5-5.1) 02/17/23 07:07 BUN 40 mg/dL (7-18) H 02/17/23 07:07 Creatinine 0.66 mg/dL (0.70-1.30) L 02/17/23 07:07 Glucose 100 mg/dL (74-106) 02/17/23 07:07 Phosphorus 3.3 mg/dL (2.5-4.9) 02/15/23 03:27 Magnesium 2.3 mg/dL (1.6-2.4) 02/15/23 03:27 Total Bilirubin 0.6 mg/dL (0.2-1.0) 02/14/23 18:11 AST 11 U/L (15-37) L 02/14/23 18:11 ALT 16 U/L (16-61) 02/14/23 18:11 Alkaline Phosphatase 101 U/L (45-117) 02/14/23 18:11 Triglycerides 39 mg/dL (<150) 02/15/23 03:27 Cholesterol 117 mg/dL (<200) 02/15/23 03:27 HDL Cholesterol 57 mg/dL (40-60) 02/15/23 03:27 Cholesterol/HDL Ratio 2.05 02/15/23 03:27 <adán lara - Last Filed: 02/20/23 15:45> Diet: AHA Activity: Ad laurent Physician Review: Patient Assessed, Agree with Above Assessment and Plan Time spent managing pt's care (in minutes): 15 <Sarah Goodson - Last Filed: 02/19/23 03:52> <adán lara - Last Filed: 02/20/23 15:45> Home Medications: Aspirin [Adult Low Dose Aspirin EC] 81 mg FT DAILY 09/21/16 Finasteride [Proscar*] 5 mg PO DAILY 09/21/16 Levothyroxine [Synthroid*] 100 mcg PO [id number] 09/21/16 Liothyronine Sodium [Cytomel] 5 mcg FT DAILY 09/20/18 Acetaminophen [Tylenol Extra Strength] 500 mg FT Q6HP PRN 02/14/23 Albuterol Neb [Proventil 0.083% Neb Soln] 1 amp NEB DAILY 02/14/23 Fexofenadine HCl [Leisa Allergy] 60 mg FT BID 02/14/23 Meloxicam [Mobic*] 7.5 mg FT DAILY 02/14/23 Tramadol HCl [Ultram] 50 mg FT Q6HP PRN 02/14/23 Followup: Ilya Renee MD [ACTIVE - CAN ADMIT] -
== END 2023-02-19 03:23 | disposition short-term general hospital (02) | DRG 191 ==
LOC: ER 16:09 → ERHOLD 20:02 → 2ND 21:43 → OBSVTOIN 02-16 13:28
PROVIDERS: ADMIT Internal Medicine; ATTEND Internal Medicine
PROC: 0CJS8ZZ Inspection of Larynx, Via Natural or Artificial Opening Endoscopic (ICD-10-PCS; principal; 2023-02-16)
DX: J44.1 Chronic obstructive pulmonary disease with (acute) exacerbation (principal); E44.0 Moderate protein-calorie malnutrition; Z68.1 Body mass index [BMI] 19.9 or less, adult; R64 Cachexia; I10 Essential (primary) hypertension; E03.9 Hypothyroidism, unspecified; R13.10 Dysphagia, unspecified; S12.9XXD Fracture of neck, unspecified, subsequent encounter; Z93.1 Gastrostomy status; Z86.16 Personal history of COVID-19; Z79.82 Long term (current) use of aspirin; Z85.46 Personal history of malignant neoplasm of prostate; Z91.041 Radiographic dye allergy status; Z91.048 Other nonmedicinal substance allergy status; Z79.890 Hormone replacement therapy; Z79.899 Other long term (current) drug therapy; Z87.891 Personal history of nicotine dependence; Z20.822 Contact with and (suspected) exposure to COVID-19
CPT/HCPCS: 36415; 70491; 71045; 71260; 80048; 80061; 80076; 81001; 83605; 83735; 83880; 84100; 84145; 84484; 85025; 85610; 87040; 87070; 87077; 87186; 87205; 87804; 87811; 93005; 94640; 94760; 97161; 99285; G0378; J0692; J0696; J1100; J1200; J2001; J2920; J2930; J7608; J7613; J7644; Q9967

== ENCOUNTER 2023-05-14 07:24 | Observation (INO) | payer OTHER ==
--- NOTE | 2023-05-14 07:52 | EDPHYS ---
Physician Documentation [facility] Name: Salazar Duong Age: 87 yrs Sex: Male : 1935 Arrival Date: 05/14/2023 Time: 07:24 Bed 20 Private MD: ED Physician Darren Kim HPI: 05/14 07:55 This 87 yrs old Male presents to ER via Wheelchair with complaints of Peg tube out. ms3 07:55 87-year-old male presents with his daughter and centerless grinder after peg tube dislodgment at ms3 6:45 AM. Patient's daughter denies patient having nausea, vomiting, fevers, chills. Patient's daughter states she used the feeding tube at 5:30 AM for feeding. Historical: - Allergies: 07:34 Iodine; ll1 07:34 IV contrast (Hives); ll1 - PMHx: 07:34 BPH; COPD; covid x 2 weeks ago; Hypertension; Hypothyroidism; Osteoporosis; Prostate ll1 Cancer; - PSHx: 07:34 PEG tube; ll1 - Immunization history:: Client reports receiving the 2nd dose of the Covid vaccine. - Social history:: Smoking status: Patient/guardian denies using tobacco. ROS: 07:55 Abdomen/GI: Positive for PEG Tube out. ms3 07:55 All other systems are negative. Exam: 07:55 Constitutional: This is a well developed, well nourished patient who is awake, alert, ms3 and in no acute distress. Head/Face: Normocephalic, atraumatic. Chest/axilla: Normal chest wall appearance and motion. Nontender with no deformity. Cardiovascular: Regular rate and rhythm with a normal S1 and S2. No gallops, murmurs, or rubs. Normal PMI, no JVD. No pulse deficits. Respiratory: Lungs have equal breath sounds bilaterally, clear to auscultation and percussion. No rales, rhonchi or wheezes noted. No increased work of breathing, no retractions or nasal flaring. 07:55 Skin: Warm, dry with normal turgor. Normal color with no rashes, no lesions, and no evidence of cellulitis. 07:55 Abdomen/GI: LUQ Peg tube site. . Vital Signs: 07:34 BP 126 / 75; Pulse 81; Resp 18; Temp 98.3; Pulse Ox 96% on R/A; Weight 56.7 kg; Height ll1 5 ft. 6 in. ; Pain 0/10; 08:47 BP 113 / 59; Pulse 69; Resp 17; Pulse Ox 98% on R/A; ll1 10:27 BP 115 / 58; Pulse 68; Resp 16; Pulse Ox 97% on R/A; ll1 07:34 Body Mass Index 20.18 (56.70 kg, 167.64 cm) ll1 07:34 Pain Scale: Adult ll1 MDM: 07:38 ED course: Attempted placed 20 [place] PEG tube and stoma unsuccessful. An 18 [place] was ms3 also attempted without success.. 07:51 Patient medically screened. ms3 07:55 Differential Diagnosis PEG tube malfunction vs IVONE. Data reviewed: vital signs, nurses ms3 notes, and as a result, I will discharge patient. Consideration of Admission/Observation Patient was admitted/placed on observation. Management of patient was discussed with the following: Hospitalist: Dr Nickerson. Historians other than the Patient: Daughter/Son: Patient's daughter. Patient's centerless grinder. Care significantly affected by the following chronic conditions: Hypertension, hypothyroidism. Counseling: I had a detailed discussion with the patient and/or guardian regarding: the historical points, exam findings, and any diagnostic results supporting the discharge/admit diagnosis, the need for further work-up and treatment in the hospital. ED course: Discussed case with Dr. Ryder patient to be placed in observation with medicine. Discussed case with Dr. Nickerson and he accepts patient as observation. Discussed necessity of observation with patient's daughter and she understands/ agrees with plan.. 05/14 07:48 Order name: CBC with Diff; Complete Time: 08:28 ms3 05/14 07:48 Order name: BMP; Complete Time: 08:28 ms3 Administered Medications: No medications were administered Disposition: 08:05 Chart complete. ms3 Disposition Summary: 05/14/23 07:51 Hospitalization Ordered Hospitalization Status: Observation ms3 Provider: Nishant Nickerson ms3 Location: Telemetry/MedSurg (observation) ms3 Condition: Stable ms3 Problem: new ms3 Symptoms: are unchanged ms3 Bed/Room Type: Standard ms3 Room Assignment: 208(05/14/23 10:21) eb Diagnosis - PEG tube malfunction ms3 - Anemia, unspecified ms3 Forms: - Medication Reconciliation Form ms3 - SBAR form ms3 Signatures: Dispatcher [employer] Cleo Braun Lynsay RN RN ll1 Darren Kim DO DO ms3 Corrections: (The following items were deleted from the chart) 10: 07:51 ms3 eb
--- NOTE | 2023-05-14 07:52 | ER ---
Nurse's Notes [facility] Name: Salazar Duong Age: 87 yrs Sex: Male : 1935 Arrival Date: 05/14/2023 Time: 07:24 Bed 20 Private MD: Diagnosis: PEG tube malfunction;Anemia, unspecified Presentation: 05/14 07:34 Chief complaint: Caregiver accidentally pulled out his PEG tube at 0645 this morning ll1 while adjusting his shirt. Coronavirus screen: Vaccine status: Patient reports receiving the 2nd dose of the covid vaccine. Client denies travel out of the [place] in the last 14 days. At this time, the client does not indicate any symptoms associated with coronavirus-19. Ebola Screen: Patient denies travel to an Ebola-affected area in the 21 days before illness onset. Initial Sepsis Screen: Does the patient meet any 2 criteria? No. Patient's initial sepsis screen is negative. Does the patient have a suspected source of infection? No. Patient's initial sepsis screen is negative. Risk Assessment: Do you want to hurt yourself or someone else? Patient reports no desire to harm self or others. Onset of symptoms was May 14, 2023. 07:34 Method Of Arrival: Wheelchair ll1 07:34 Acuity: ERMELINDA 3 ll1 Triage Assessment: 07:36 General: Appears in no apparent distress. Behavior is calm, cooperative, appropriate ll1 for age. Pain: Denies pain. GI: Parent/caregiver reports the patient having PEG tube pulled out. Historical: - Allergies: 07:34 Iodine; ll1 07:34 IV contrast (Hives); ll1 - PMHx: 07:34 BPH; COPD; covid x 2 weeks ago; Hypertension; Hypothyroidism; Osteoporosis; Prostate ll1 Cancer; - PSHx: 07:34 PEG tube; ll1 - Immunization history:: Client reports receiving the 2nd dose of the Covid vaccine. - Social history:: Smoking status: Patient/guardian denies using tobacco. Screenin:36 [facility] ED Fall Risk Assessment (Adult) Impaired Gait Yes (1 pt) Mobility Assist ll1 Device Used Yes (1 pt) Altered Elimination Yes (1 pt) Score/Fall Risk Level 3 or more points = High Risk Oriented to surroundings, Maintained a safe environment, Educated pt \T\ family on fall prevention, incl call for assistance when getting out of bed, Provided non-skid footwear, Hourly rounding (assess needs \T\ fall precautionary measures) done, Used ambulatory aids as needed (educated on \T\ assisted with), Used gait belt as appropriate Offered frequent toileting (1:1 observation), Utilized family, sitter, or virtual improvement analyst as indicated. Abuse screen: Denies threats or abuse. Nutritional screening: No deficits noted. Tuberculosis screening: No symptoms or risk factors identified. Assessment: 07:46 Reassessment: No changes from previously documented assessment. Unable to pass new PEG ll1 tube, size 20 F or 18F. 08:04 Reassessment: Patient appears in no apparent distress at this time. No changes from ll1 previously documented assessment. Patient and/or family updated on plan of care and expected duration. Pain level reassessed. Patient is alert, oriented x 3, equal unlabored respirations, skin warm/dry/pink. 08:47 Reassessment: Patient appears in no apparent distress at this time. No changes from ll1 previously documented assessment. Patient and/or family updated on plan of care and expected duration. Pain level reassessed. Patient is alert, oriented x 3, equal unlabored respirations, skin warm/dry/pink. 09:45 Reassessment: No changes from previously documented assessment. Patient and/or family ll1 updated on plan of care and expected duration. Pain level reassessed. Patient is alert, oriented x 3, equal unlabored respirations, skin warm/dry/pink. 10:25 Reassessment: No changes from previously documented assessment. Dr. Ryder at . ll1 10:40 Reassessment: No changes from previously documented assessment. Patient and/or family ll1 updated on plan of care and expected duration. Pain level reassessed. Vital Signs: 07:34 BP 126 / 75; Pulse 81; Resp 18; Temp 98.3; Pulse Ox 96% on R/A; Weight 56.7 kg; Height ll1 5 ft. 6 in. ; Pain 0/10; 08:47 BP 113 / 59; Pulse 69; Resp 17; Pulse Ox 98% on R/A; ll1 10:27 BP 115 / 58; Pulse 68; Resp 16; Pulse Ox 97% on R/A; ll1 07:34 Body Mass Index 20.18 (56.70 kg, 167.64 cm) ll1 07:34 Pain Scale: Adult ll1 ED Course: 07:26 Patient arrived in ED. ts1 07:26 Darren Kim DO is Attending Physician. ms3 07:28 Arm band placed on Patient placed in an exam room, on a stretcher. ll1 07:34 Everton Crow RN is Primary Nurse. ll1 07:36 Triage completed. ll1 07:37 Patient has correct armband on for positive identification. Bed in low position. Call ll1 light in reach. Client placed on continuous cardiac and pulse oximetry monitoring. NIBP monitoring applied. 07:37 No provider procedures requiring assistance completed. ll1 07:50 Nishant Nickerson is Hospitalizing Provider. ms3 07:50 Inserted saline lock: 22 gauge in right forearm, using aseptic technique. Blood ll1 collected. 10:47 Provided Education on: n/a. ll1 10:47 Patient admitted, IV remains in place. ll1 Administered Medications: No medications were administered Medication: 07:37 VIS not applicable for this client. ll1 Outcome: 07:51 Decision to Hospitalize by Provider. ms3 10:35 Admitted to Med/surg accompanied by tech, via stretcher, room 208, with chart, Report ll1 called to Mela Pereira RN 10:35 Condition: stable 10:35 Instructed on the need for admit. 10:47 Patient left the ED. ll1 Signatures: Everton Crow RN RN ll1 Darren Kim DO DO ms3 Kristi Osborne, THERON PAS ts1 Corrections: (The following items were deleted from the chart) 10:47 10:45 Reassessment: No changes from previously documented assessment. Patient and/or ll1 family updated on plan of care and expected duration. Pain level reassessed. Patient is alert, oriented x 3, equal unlabored respirations, skin warm/dry/pink. ll1
--- OUTSIDE RECORDS SUMMARY | 2023-05-14 08:00 | XMS REPORT | Continuity of Care Document ---
:1935 Author Organization [facility] t Address [address] [place] [address] Care Team Providers Name Role Phone Suzanne Gardiner MD Primary Care Physician MIKKI ANDRADE Attending Clinician Unavailable EFFIE BROCK Attending Clinician Unavailable JOHNATHAN CHAVARRIA Attending Clinician Unavailable Johnathan Chavarria Attending Clinician Katia Ramsey Attending Clinician EDE MCQUEEN Attending Clinician Unavailable Sherita Torres Attending Clinician Nurse, Adc Pob Immunization Attending Clinician Unavailable Kelby Freed DO Attending Clinician Jose Mcclellan Attending Clinician Julia Darnell Attending Clinician Jermaine Prince Attending Clinician ZARINA LEON Admitting Clinician Unavailable ERASMO MATA Admitting Clinician Unavailable Erasmo Mata Admitting Clinician SHERITA TORRES Admitting Clinician Unavailable Sherita Torres Admitting Clinician Jermaine Prince Admitting Clinician Payers Payer Name Policy Type Policy Number Effective Date Expiration Date Stevie vasquez AETNA MEDICARE PPO [id number] 2021 00:00:00 [employer]ETNA MEDICARE HMO [id number] 2022 POS PPO 00:00:00 [employer]ET[employer] MANAGED [id number] 2020 MEDICARE PPO-ENOC 00:00:00 Problems Condition Condition Condition Status Onset Resolution Last Treating Co mments Source Name Details Category Date Date Treatment Clinician Date INTERIOR INTERIOR Diagnosis Active 2021-102022-10-24 Memoria INFERIOR INFERIOR 11-16 08:15:00 l C2/C3 FX C2/C3 FX 00:00: Juan Jose ayoub Active 00 09/15/2022 [facility] L HUMERUS L HUMERUS Diagnosis Active 2022-06-18 Memoria FRACTURE FRACTURE 06-18 06:40:00 l Active 00:00: Jim 06/18/2022 00 [facility] LT HUMERUS LT Diagnosis Active 2022-07-08 Memoria FX,INFERIO HUMERUS 06-18 21:46:00 l R PUBIC FX,INFERIO 00:00: Rashmi nn RAMUS R PUBIC 00 FX,SA RAMUS FX,SA Active 06/18/2022 [facility] UNK UNK Diagnosis Active 2017-11-17 Mem oria Active 11-13 08:30:00 l 11/13/2017 00:00: Juan Jose ayoub 00 [place] M54.5 - M54.5 - Diagnosis Active 2015-102017-05-17 Memoria LOW BACK LOW BACK 0 09:29:00 l PAIN PAIN 00:01: [place] Active 00 08/05/2016 [facility] C6 C6 Diagnosis Active 2015-102016-07-25 Mem oria FRACTURE, FRACTURE, 0 09:31:00 l T5, FX, T5, FX, 00:00: Jim LIGAMENT LIGAMENT 00 EDEMA, LAC EDEMA, LAC Active 07/22/2016 [facility] Vitamin D Vitamin D Disease Active Overview: Univers deficiency deficiency 3-05 Formattin ity of 00:00: g of this [place] 00 note Medical might be Branch different from the original. 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 3-05 ity of 00:00: [place] 00 Medical Branch Essential Essential Disease Active Uni vers hypertensi hypertensi 3-05 it y of on, benign [place] Prostate Prostate Disease Active Unive rs hypertroph hypertroph 3-05 it y of y y 00:00: [place] [facility] Allergic Allergic Disease Active Unive rs rhinitis rhinitis 3-05 ity of 00:00: [place] 00 Medical Branch Essential Essential Problem 2018-02-23 Memoria (primary) (primary) 12:59:37 l hypertensi hypertensi He rmann on on 02/23/2018 [facility] Encounter Encounter Problem 2018-02-23 Memoria for for 12:59:37 l immunizati immunizati He rmann on on 02/23/2018 [facility] Dysphagia Dysphagia Problem Active 2022-09-28 Memoria (disorder) (disorder) 01:16:37 l Active [place] Problem 09/28/2022 [facility] 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 Benign Benign Problem Resolve 2022-09-19 Me moria prostatic prostatic d 15:07:15 l hyperplasi hyperplasi He rmann a a (disorder) (disorder) Resolved Problem 09/19/2022 [facility], 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 [place] disease disease (disorder) (disorder) Active Problem 09/28/2022 [facility] Compressio Compressi Problem Active 2022-09-28 Memoria n fracture on 01:16:37 l of second fracture Rashmi nn lumbar of second vertebra lumbar (disorder) vertebra (disorder) Active Problem 09/28/2022 [facility] Dyspnea on Dyspnea Problem Active 2022-09-28 Memoria exertion on 01:16:37 l (finding) exertion Rashmi nn (finding) Active Problem 09/28/2022 [facility] Fracture Fracture Problem Active 2022-09-28 Memoria of of 01:16:37 l cervical cervical Juan Jose n spine spine (disorder) (disorder) Active Problem 09/28/2022 [facility], [facility] Hyperlipid Hyperlipi Problem Active 2022-09-28 Memoria emia demia 01:16:37 l (disorder) (disorder) He rmann Active Problem 09/28/2022 [facility] Hypothyroi Hypothyro Problem Active 2022-09-28 Memoria dism idism 01:16:37 l (disorder) (disorder) He rmann Active Problem 09/28/2022 [facility] Wedge Wedge Problem Active 2022-09-28 Memor ia fracture fracture 01:16:37 l of of Jim thoracic thoracic vertebra vertebra (disorder) (disorder) Active Problem 09/28/2022 [facility] Benign Benign Problem Active 2022-09-28 [place] jeannette prostatic prostatic 01:16:37 l hypertroph hypertroph He rmann with with outflow outflow obstructio obstructio n n (disorder) (disorder) Active Problem 09/28/2022 [facility] Hypoxia Hypoxia Problem Active 2022-09-28 Me yvonnea (disorder) (disorder) 01:16:37 l Active Jim Problem 09/28/2022 [facility] ILLNESS, ILLNESS, Diagnosis Active 2016-07-25 Memoria UNSPECIFIE UNSPECIFIE 09:31:00 l D D Active [facility] UNSP DISP UNSP DISP Diagnosis Active 2022-07-08 Memoria FX OF FX OF 21:46:00 l SURGICAL SURGICAL Juan Jose n NECK OF NECK OF LEFT HU LEFT HU Active [facility] UNSP UNSP Diagnosis Active 2022-07-08 [facility] oria FRACTURE FRACTURE 21:46:00 l OF SACRUM, OF SACRUM, He rmann INIT INIT ENCNTR FOR ENCNTR FOR Active [facility] OTH OTH Diagnosis Active 2022-07-08 [facility] oria FRACTURE FRACTURE 21:46:00 l OF UNSP OF UNSP Jim PUBIS, PUBIS, INIT INIT ENCNTR ENCNTR Active [facility] History of Past Illness Condition Condition Condition Status Onset Resolution Last Treating Co mments Source Name Details Category Date Date Treatment Clinician Date Other Other Problem 2018-02-23 2018-02-23 Tina ricardo osteoporos osteoporos 2-21 12:59:37 12:59:37 l is with is with 04:19: Jim current current 52 pathologic pathologic al al fracture, fracture, vertebra(e vertebra(e ), initial ), initial encounter encounter for for fracture fracture 12/06/2017 02/23/2018 [facility] Allergies, Adverse Reactions, Alerts Allergy Allergy Status Severity Reaction(s) Onset Inactive Treating Comm ents Source Name Type Date Date Clinician IODINATE Allergy Active [facility] CONTRAST 00:00: Medical MEDIA 00 [place] IODINE Allergy Active [facility] 00:00: [facility] 00 [place] IODINE DRUG Active [facility] INGREDI 3-05 ity of 00:00: [place] 00 Medical Branch Iodine Propensi Active [facility] Univers ty to 3-05 ity of adverse 00:00: [place] reaction 00 Medical s Branch [facility] (iodine- (iodine- Juan Jose n based) based) traMADol traMADol Active Heydi Fernandez Social History Social Habit Start Date Stop Date Quantity Comments Source Social History 2016-07-22 2016-07-22 [facility] Selina santoyorashaad 22:52:42 22:52:42 Alcohol intake 2014-12-23 2014-12-23 Current drinker Unive rsity of 00:00:00 00:00:00 of alcohol [facility] (finding) Branch History of 2008-12-23 Smoker University of tobacco use 00:00:00 [facility] [place] [facility] Sex Assigned At [birth year] Universit y of 00:00:00 00:00:00 [facility] [place] [facility] Smoking Status Start Date Stop Date Source Tobacco smoking status 2022-09-16 06:28:04 2022-09-16 06:28:04 M russell Fernandez Medications Ordered Filled Start Stop Current Ordering Indication Dosage Frequency Signature Comments Components Source Medication Medication Date Date Medication? Clinician (SIG) Name Name diclofenac 2021-10 Yes TOP, QID, Me moria sodium 1% 2-11 0 l topical 15:56: Refill(s) Rashmi nn cream 00 lidocaine 2021-10 Yes 3 patch, [place] jeannette 4% topical 2-11 TOP, l film 15:56: Daily, 0 [place] 00 Refill(s) methocarbam 2021-10 Yes 500 mg = 1 Memoria ol 500 mg 2-11 tab, PEG, l oral tablet 15:56: TID, PRN He rmann 00 Spasm, X 7 day, # 20 tab, 0 Refill(s), Pharmacy: [facility] [place], 167.64, cm, 09/19/22 13:33:00 [employer]ATORY PRODUCT MANAGER, Height, 62.1, kg, 09/19/22 13:33:00 [employer]ATORY PRODUCT MANAGER, Weight oxyCODONE 5 2021-10 Yes 5 mg = 1 Me moria mg oral 2-11 tab, PO, l tablet, 15:56: Q4H, PRN Juan Jose n immediate 00 Pain Score release 7-10, acute left shoulder fracture, acute cervical spine fracture, X 7 day, # 20 tab, 0 Refill(s), Pharmacy: [facility] [place], 167.64, cm, 09/19/22 13:33:00 REGULATORY PRODUCT MANAGER, Height, 62.1, kg, 09/19/22 13:33:00 REGULATORY PRODUCT MANAGER, W... diclofenac 2021-10 Yes TOP, QID, Me moria sodium 1% 2-11 0 l topical 15:56: Refill(s) Rashmi nn cream 00 lidocaine 2021-10 Yes 3 patch, [place] jeannette 4% topical 2-11 TOP, l film 15:56: Daily, 0 [place] 00 Refill(s) methocarbam 2021-10 Yes 500 mg = 1 Memoria ol 500 mg 2-11 tab, PEG, l oral tablet 15:56: TID, PRN He rmann 00 Spasm, X 7 day, # 20 tab, 0 Refill(s), Pharmacy: [facility] [place], 167.64, cm, 09/19/22 13:33:00 REGULATORY PRODUCT MANAGER, Height, 62.1, kg, 09/19/22 13:33:00 REGULATORY PRODUCT MANAGER, Weight oxyCODONE 5 2021-10 Yes 5 mg = 1 Me moria mg oral 2-11 tab, PO, l tablet, 15:56: Q4H, PRN Juan Jose n immediate 00 Pain Score release 7-10, acute left shoulder fracture, acute cervical spine fracture, X 7 day, # 20 tab, 0 Refill(s), Pharmacy: [facility] [place], 167.64, cm, 09/19/22 13:33:00 REGULATORY PRODUCT MANAGER, Height, 62.1, kg, 09/19/22 13:33:00 REGULATORY PRODUCT MANAGER, W... diclofenac 2021-10 Yes TOP, QID, Me moria sodium 1% 2-11 0 l topical 15:56: Refill(s) Rashmi nn cream 00 lidocaine 2021-10 Yes 3 patch, [place] jeannette 4% topical 2-11 TOP, l film 15:56: Daily, 0 Jim 00 Refill(s) methocarbam 2021-10 Yes 500 mg = 1 Memoria ol 500 mg 2-11 tab, PEG, l oral tablet 15:56: TID, PRN He rmann 00 Spasm, X 7 day, # 20 tab, 0 Refill(s), Pharmacy: [facility] [place], 167.64, cm, 09/19/22 13:33:00 REGULATORY PRODUCT MANAGER, Height, 62.1, kg, 09/19/22 13:33:00 REGULATORY PRODUCT MANAGER, Weight oxyCODONE 5 2021-10 Yes 5 mg = 1 Me moria mg oral 2-11 tab, PO, l tablet, 15:56: Q4H, PRN Juan Jose n immediate 00 Pain Score release 7-10, acute left shoulder fracture, acute cervical spine fracture, X 7 day, # 20 tab, 0 Refill(s), Pharmacy: [facility], 167.64, cm, 09/19/22 13:33:00 REGULATORY PRODUCT MANAGER, Height, 62.1, kg, 09/19/22 13:33:00 REGULATORY PRODUCT MANAGER, W... Flomax 0.4 2021-10 Yes 0.4 mg = 1 M emoria mg oral 2-11 cap, PO, l capsule 15:55: Bedtime, Juan Jose n 00 give per PEG, # 30 cap, 0 Refill(s), Pharmacy: [facility], 167.64, cm, 09/19/22 13:33:00 REGULATORY PRODUCT MANAGER, Height, 62.1, kg, 09/19/22 13:33:00 REGULATORY PRODUCT MANAGER, Weight acetaminoph 2021-10 Yes 1,000 mg = Memoria en 500 mg 2-11 2 tab, l oral 15:55: PEG, Jim tablet. 00 Q8H-06, PRN Pain Score 1-3, 0 Refill(s) Flomax 0.4 2021-10 Yes 0.4 mg = 1 M emoria mg oral 2-11 cap, PO, l capsule 15:55: Bedtime, Juan Jose n 00 give per PEG, # 30 cap, 0 Refill(s), Pharmacy: [facility], 167.64, cm, 09/19/22 13:33:00 REGULATORY PRODUCT MANAGER, Height, 62.1, kg, 09/19/22 13:33:00 REGULATORY PRODUCT MANAGER, Weight acetaminoph 2021-10 Yes 1,000 mg = Memoria en 500 mg 2-11 2 tab, l oral 15:55: PEG, Jim tablet. 00 Q8H-06, PRN Pain Score 1-3, 0 Refill(s) Flomax 0.4 2021-10 Yes 0.4 mg = 1 M emoria mg oral 2-11 cap, PO, l capsule 15:55: Bedtime, Juan Jose n 00 give per PEG, # 30 cap, 0 Refill(s), Pharmacy: [facility], 167.64, cm, 09/19/22 13:33:00 REGULATORY PRODUCT MANAGER, Height, 62.1, kg, 09/19/22 13:33:00 REGULATORY PRODUCT MANAGER, Weight acetaminoph 2021-10 Yes 1,000 mg = Memoria en 500 mg 2-11 2 tab, l oral 15:55: PEG, Jim tablet. 00 Q8H-06, PRN Pain Score 1-3, 0 Refill(s) finasteride 2021-10 Yes 5 mg = 1 Me moria 5 mg oral 2-11 tab, PEG, l tablet 15:54: Daily, # [place] 00 30 tab, 0 Refill(s), Pharmacy: [facility], 167.64, cm, 09/19/22 13:33:00 REGULATORY PRODUCT MANAGER, Height, 62.1, kg, 09/19/22 13:33:00 REGULATORY PRODUCT MANAGER, Weight levothyroxi 2021-10 Yes 100 Memori a ne 100 mcg 2-11 microgram l (0.1 mg) 15:54: = 1 tab, Rashmi nn oral tablet 00 PEG, Daily, # 30 tab, 0 Refill(s), Pharmacy: [facility], 167.64, cm, 09/19/22 13:33:00 REGULATORY PRODUCT MANAGER, Height, 62.1, kg, 09/19/22 13:33:00 REGULATORY PRODUCT MANAGER, Weight liothyronin 2021-10 Yes 5 Memori a e 5 mcg 2-11 microgram l oral tablet 15:54: = 1 tab, He rmann 00 PEG, Daily, # 30 tab, 0 Refill(s), Pharmacy: [facility], 167.64, cm, 09/19/22 13:33:00 REGULATORY PRODUCT MANAGER, Height, 62.1, kg, 09/19/22 13:33:00 REGULATORY PRODUCT MANAGER, Weight metoprolol 2021-10 Yes 25 mg = 1 Me moria tartrate 25 2-11 tab, PEG, l mg oral 15:54: Q12H, # 60 Herm rashaad tablet 00 tab, 0 Refill(s), Pharmacy: [facility], 167.64, cm, 09/19/22 13:33:00 REGULATORY PRODUCT MANAGER, Height, 62.1, kg, 09/19/22 13:33:00 REGULATORY PRODUCT MANAGER, Weight finasteride 2021-10 Yes 5 mg = 1 Me moria 5 mg oral 2-11 tab, PEG, l tablet 15:54: Daily, # [place] 00 30 tab, 0 Refill(s), Pharmacy: [facility], 167.64, cm, 09/19/22 13:33:00 REGULATORY PRODUCT MANAGER, Height, 62.1, kg, 09/19/22 13:33:00 REGULATORY PRODUCT MANAGER, Weight levothyroxi 2021-10 Yes 100 Memori a ne 100 mcg 2-11 microgram l (0.1 mg) 15:54: = 1 tab, Rashmi nn oral tablet 00 PEG, Daily, # 30 tab, 0 Refill(s), Pharmacy: [facility], 167.64, cm, 09/19/22 13:33:00 REGULATORY PRODUCT MANAGER, Height, 62.1, kg, 09/19/22 13:33:00 REGULATORY PRODUCT MANAGER, Weight liothyronin 2021-10 Yes 5 Memori a e 5 mcg 2-11 microgram l oral tablet 15:54: = 1 tab, He rmann 00 PEG, Daily, # 30 tab, 0 Refill(s), Pharmacy: [facility], 167.64, cm, 09/19/22 13:33:00 REGULATORY PRODUCT MANAGER, Height, 62.1, kg, 09/19/22 13:33:00 REGULATORY PRODUCT MANAGER, Weight metoprolol 2021-10 Yes 25 mg = 1 Me moria tartrate 25 2-11 tab, PEG, l mg oral 15:54: Q12H, # 60 Herm rashaad tablet 00 tab, 0 Refill(s), Pharmacy: [facility], 167.64, cm, 09/19/22 13:33:00 REGULATORY PRODUCT MANAGER, Height, 62.1, kg, 09/19/22 13:33:00 REGULATORY PRODUCT MANAGER, Weight finasteride 2021-10 Yes 5 mg = 1 Me moria 5 mg oral 2-11 tab, PEG, l tablet 15:54: Daily, # [place] 00 30 tab, 0 Refill(s), Pharmacy: [facility], 167.64, cm, 09/19/22 13:33:00 REGULATORY PRODUCT MANAGER, Height, 62.1, kg, 09/19/22 13:33:00 REGULATORY PRODUCT MANAGER, Weight levothyroxi 2022-1 Yes 100 Memori a ne 100 mcg 2-11 microgram l (0.1 mg) 15:54: = 1 tab, Rashmi nn oral tablet 00 PEG, Daily, # 30 tab, 0 Refill(s), Pharmacy: [facility], 167.64, cm, 09/19/22 13:33:00 REGULATORY PRODUCT MANAGER, Height, 62.1, kg, 09/19/22 13:33:00 REGULATORY PRODUCT MANAGER, Weight liothyronin 2021-10 Yes 5 Memori a e 5 mcg 2-11 microgram l oral tablet 15:54: = 1 tab, He rmann 00 PEG, Daily, # 30 tab, 0 Refill(s), Pharmacy: [facility], 167.64, cm, 09/19/22 13:33:00 REGULATORY PRODUCT MANAGER, Height, 62.1, kg, 09/19/22 13:33:00 REGULATORY PRODUCT MANAGER, Weight metoprolol 2021-10 Yes 25 mg = 1 Me moria tartrate 25 2-11 tab, PEG, l mg oral 15:54: Q12H, # 60 Herm rashaad tablet 00 tab, 0 Refill(s), Pharmacy: [facility], 167.64, cm, 09/19/22 13:33:00 REGULATORY PRODUCT MANAGER, Height, 62.1, kg, 09/19/22 13:33:00 REGULATORY PRODUCT MANAGER, Weight aspirin 81 2021-10 Yes 81 mg = 1 Me moria mg tablet, 2-11 tab, PEG, l chewable 15:53: Daily, # Rashmi nn 00 30 tab, 0 Refill(s), Pharmacy: [facility], 167.64, cm, 09/19/22 13:33:00 REGULATORY PRODUCT MANAGER, Height, 62.1, kg, 09/19/22 13:33:00 REGULATORY PRODUCT MANAGER, Weight aspirin 81 2021-10 Yes 81 mg = 1 Me moria mg tablet, 2-11 tab, PEG, l chewable 15:53: Daily, # Rashmi nn 00 30 tab, 0 Refill(s), Pharmacy: [facility], 167.64, cm, 09/19/22 13:33:00 REGULATORY PRODUCT MANAGER, Height, 62.1, kg, 09/19/22 13:33:00 REGULATORY PRODUCT MANAGER, Weight aspirin 81 2021-10 Yes 81 mg = 1 Me moria mg tablet, 2-11 tab, PEG, l chewable 15:53: Daily, # Rashmi nn 00 30 tab, 0 Refill(s), Pharmacy: [facility] [place], 167.64, cm, 09/19/22 13:33:00 REGULATORY PRODUCT MANAGER, Height, 62.1, kg, 09/19/22 13:33:00 REGULATORY PRODUCT MANAGER, Weight bisacodyl 2021-10 No Notes: Memori a 2-04 (Same As: l 16:23: Dulcolax, Jim 00 Bisco-Lax) bisacodyl 2021-10 No Notes: Memori a 2-04 (Same As: l 16:23: Dulcolax, [place] 00 Bisco-Lax) bisacodyl 2021-10 No Notes: Memori a 2-04 (Same As: l 16:23: Dulcolax, [place] 00 Bisco-Lax) PlasmaLyte 2021-10 No Notes: Memor ia A PH-7.4 2-04 (Same as: l 1,000 mL 14:00: Isolyte S Herm rashaad 00 PH7.4, Normosol-R PH 7.4, Plasma-Lyt e A ) PlasmaLyte 2021-10 No Notes: Memor ia A PH-7.4 2-04 (Same as: l 1,000 mL 14:00: Isolyte S Herm rashaad 00 PH7.4, Normosol-R PH 7.4, Plasma-Lyt e A ) PlasmaLyte 2021-10 No Notes: Memor ia A PH-7.4 2-04 (Same as: l 1,000 mL 14:00: Isolyte S Herm rashaad 00 PH7.4, Normosol-R PH 7.4, Plasma-Lyt e A ) remove 2021-10 Yes Notes: Memoria patch 2-04 Remove l 03:00: patch 12 Jim 00 hours after applicatio n each day. remove 2021-10 Yes Notes: Memoria patch 2-04 Remove l 03:00: patch 12 [place] 00 hours after applicatio n each day. remove 2021-10 Yes Notes: Memoria patch 2-04 Remove l 03:00: patch 12 Jim 00 hours after applicatio n each day. acetaminoph 2021-10 No Notes: Max Memoria en 2-03 acetaminop l 20:00: hen 4000 [place] 00 mg/day (4 gm/day). (Same as: Tylenol Extra Strength) acetaminoph 2021-10 No Notes: Max Memoria en 2-03 acetaminop l 20:00: hen 4000 [place] 00 mg/day (4 gm/day). (Same as: Tylenol Extra Strength) acetaminoph 2021-10 No Notes: Max Memoria en 2-03 acetaminop l 20:00: hen 4000 Jim 00 mg/day (4 gm/day). (Same as: Tylenol Extra Strength) Dilaudid 2021-10 Yes Notes: Memoria 2-03 Same as: l 16:31: Dilaudid Jim 00 Dilaudid 2021-10 Yes Notes: Memoria 2-03 Same as: l 16:31: Dilaudid Jim 00 Dilaudid 2021-10 Yes Notes: Memoria 2- Same as: l 16:31: Dilaudid [place] 00 acetaminoph 2021-10 Yes Notes: [place] jeannette en - Infuse l 16:30: over 15 Jim 00 minutes Do not exceed 4gm/day of acetaminop hen MEDICATION WASTE Product Size: 1000 mg Product Wasted: ___ mg acetaminoph 2021-10 Yes Notes: [place] jeannette en - Infuse l 16:30: over 15 [place] 00 minutes Do not exceed 4gm/day of acetaminop hen MEDICATION WASTE Product Size: 1000 mg Product Wasted: ___ mg acetaminoph 2021-10 Yes Notes: [place] jeannette en 2- Infuse l 16:30: over 15 [place] 00 minutes Do not exceed 4gm/day of acetaminop hen MEDICATION WASTE Product Size: 1000 mg Product Wasted: ___ mg Aspirin 2021-10 No Notes: Do Memor ia Enteric 2- not crush l Coated 15:00: or chew. Jim 00 (Same As: Ecotrin) finasteride 2021-10 Yes Notes: [place] jeannette 2-03 (Same as: l 15:00: Proscar) Jim 00 "Do Not Crush" Women of childbeari ng age should not touch or handle broken tablets Hazardous Drug Group 3:Reproduc tive risk Hazardous Drug -- Refer to safe handling procedure PPE Matrix senna 2021-10 Yes Notes: Memoria 2-03 (Same as: l 15:00: Senokot) [place] 00 polyethylen 2021-10 Yes Notes: [place] jeannette e glycol 2-03 Dissolve l 3350 15:00: in 8 oz of [place] 00 water or juice. (Same as: Miralax) Aspirin 2021-10 No Notes: Do Memor ia Enteric 2-03 not crush l Coated 15:00: or chew. Jim 00 (Same As: Ecotrin) finasteride 2021-10 Yes Notes: [place] jeannette 2-03 (Same as: l 15:00: Proscar) Jim 00 "Do Not Crush" Women of childbeari ng age should not touch or handle broken tablets Hazardous Drug Group 3:Reproduc tive risk Hazardous Drug -- Refer to safe handling procedure PPE Matrix senna 2021-10 Yes Notes: Memoria 2-03 (Same as: l 15:00: Senokot) [place] 00 polyethylen 2021-10 Yes Notes: [place] jeannette e glycol 2-03 Dissolve l 3350 15:00: in 8 oz of [place] 00 water or juice. (Same as: Miralax) Aspirin 2021-10 No Notes: Do Memor ia Enteric 2-03 not crush l Coated 15:00: or chew. [place] 00 (Same As: Ecotrin) finasteride 2021-10 Yes Notes: [place] jeannette 2-03 (Same as: l 15:00: Proscar) Jim 00 "Do Not Crush" Women of childbeari ng age should not touch or handle broken tablets Hazardous Drug Group 3:Reproduc tive risk Hazardous Drug -- Refer to safe handling procedure PPE Matrix senna 2021-10 Yes Notes: Memoria 2-03 (Same as: l 15:00: Senokot) Jim 00 polyethylen 2021-10 Yes Notes: [place] jeannette e glycol 2-03 Dissolve l 3350 15:00: in 8 oz of Jim 00 water or juice. (Same as: Miralax) lidocaine 2021-10 Yes Notes: Memori a 4% topical 2-03 Patch is l film 13:57: applied to [place] 00 intact skin to cover painful area for up to 12 hours in a 24-hour period (12 hours on and 12 hours off). Please indicate the location of applicatio n site. Site 1: Remove old patch before applicatio n of new patch. (Same as Aspercreme Lidocaine Patch) naloxone 2021-10 Yes Notes: Memoria 2-03 Same as l 13:57: Narcan Jim bisacodyl 2021-10 Yes Notes: Memori a 2-03 (Same As: l 13:57: Dulcolax, Jim 00 Bisco-Lax) ondansetron 2021-10 Yes Notes: [place] jeannette 2-03 (Same as: l 13:57: Zofran) [place] 00 MEDICATION WASTE Product Size: 4 mg Product Wasted: ___ mg melatonin 2021-10 Yes Notes: Memori a 2-03 (Same as: l 13:57: Melatonin) Jim 00 Flonase 2021-10 Yes Notes: Memoria 0.05 mg/inh 2-03 (Same as: l nasal spray 13:57: Flonase) He rmann Cepacol 2021-10 Yes Notes: Memoria Sore Throat 2-03 Cepacol l 15 mg-3.6 13:57: lozenges Herm rashaad mg mucous 00 Dispense 1 membrane box = 16 lozenge lozenges (Same As: Cepacol Lozenges) Tums 2021-10 Yes Notes: Memoria 2-03 (Same As: l 13:57: Tums) Jim 00 Calcium Carbonate 500 mg = 200 mg elemental calcium Dose = mg calcium carbonate ( mg elemental calcium) simethicone 2021-10 Yes Notes: [place] jeannette 2-03 (Same as: l 13:57: Mylicon, Jim 00 Phazyme, Genasyme) ocular 2021-10 Yes Notes: Memoria lubricant 2-03 (Same as: l solution 13:57: Aquasite) Herm rashaad 00 sodium 2021-10 Yes Notes: Memoria chloride 2-03 (Same as: l nasal 13:57: [place], Jim solution 00 Deep Sea Nasal [place]). Calmoseptin 2021-10 Yes Notes: [place] jeannette e topical 2-03 (Same as: l ointment 13:57: Calmosepti Her gomez 00 ne) cetirizine 2021-10 Yes Notes: Memor ia 2-03 (Same As: l 13:57: Zyrtec) [place] 00 Tessalon 2021-10 Yes Notes: Memoria Perles 2-03 (Same As: l 13:57: Tessalon Jim 00 Perles) "Do Not Crush" Blistex 2021-10 Yes Notes: Memoria topical 2-03 Same as: l ointment 13:57: Blistex Juan Jose n 00 albuterol 2021-10 Yes Notes: SEE Me moria 0.083% 2-03 RT l inhalation 13:57: DOCUMENTAT H ermann solution 00 ION (Same as: Proventil) Aquaphor 2021-10 Yes 1 appl, Memori a topical 2- Route: l ointment 13:57: TOP, Q4H, Herm rashaad 00 Drug form: OINT, PRN Dry Skin, Start date: 09/17/22 7:57:00 REGULATORY PRODUCT MANAGER, Duration: 30 day, Stop date: 10/17/22 7:56:00 REGULATORY PRODUCT MANAGER, 0 oxyCODONE 5 2021-10 Yes Notes: [place] jeannette mg/5 mL 2-03 (Same l oral 13:57: as:'Roxico Jim solution 00 done) To be drawn up in 3 mL syr oxyCODONE 2021-10 Yes Notes: Memori a immediate 2- (Same as: l release 13:57: 'Roxicodon Herm rashaad 00 e) Reglan 2021-10 Yes Notes: Memoria 2-03 (Same as: l 13:57: Reglan) Jim 00 dextrometho 2021-10 Yes Notes: [place] jeannette rphan-guaiF 2-03 (dextromet l ENesin 20 13:57: horphan-gu He rmann mg-200 00 aifenesin mg/10 mL 10-100mg/5 oral liquid ml 10 ml oral SOLN ud) (Same as: Robitussin DM) Robaxin 2021-10 Yes Notes: Memoria 2-03 (Same l 13:57: as:Robaxin [place] 00 ) diphenhydra 2021-10 Yes 1 appl, Mem oria mine-zinc 2-03 Route: l acetate 13:57: TOP, QID, Rashmi nn topical 00 Drug form: 2%-0.1% CRM, PRN cream as needed for itching, Start date: 09/17/22 7:57:00 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 Please indicate the location of applicatio n site. Site 1: Remove old patch before applicatio n of new patch. (Same as Aspercreme Lidocaine Patch) naloxone 2021-10 Yes Notes: Memoria 2-03 Same as l 13:57: Narcan Jim 00 bisacodyl 2021-10 Yes Notes: Memori a 2-03 (Same As: l 13:57: Dulcolax, Jim Bisco-Lax) ondansetron 2021-10 Yes Notes: [place] jeannette 2-03 (Same as: l 13:57: Zofran) [place] 00 MEDICATION WASTE Product Size: 4 mg Product Wasted: ___ mg melatonin 2021-10 Yes Notes: Memori a 2-03 (Same as: l 13:57: Melatonin) Jim Flonase 2021-10 Yes Notes: Memoria 0.05 mg/inh 2-03 (Same as: l nasal spray 13:57: Flonase) rm Cepacol 2021-10 Yes Notes: Memoria Sore Throat 2-03 Cepacol l 15 mg-3.6 13:57: lozenges Herm rashaad mg mucous 00 Dispense 1 membrane box = 16 lozenge lozenges (Same As: Cepacol Lozenges) Tums 2021-10 Yes Notes: Memoria 2-03 (Same As: l 13:57: Tums) [place] 00 Calcium Carbonate 500 mg = 200 mg elemental calcium Dose = mg calcium carbonate ( mg elemental calcium) simethicone 2021-10 Yes Notes: [place] jeannette 2-03 (Same as: l 13:57: Mylicon, Jim 00 Phazyme, Genasyme) ocular 2021-10 Yes Notes: Memoria lubricant 2-03 (Same as: l solution 13:57: Aquasite) Herm rashaad 00 sodium 2021-10 Yes Notes: Memoria chloride 2-03 (Same as: l nasal 13:57: [place], [place] solution 00 Deep Sea Nasal [place]). Calmoseptin 2021-10 Yes Notes: [place] jeannette e topical 2-03 (Same as: l ointment 13:57: Calmosepti Her gomez 00 ne) cetirizine 2021-10 Yes Notes: Memor ia 2-03 (Same As: l 13:57: Zyrtec) [place] 00 Tessalon 2021-10 Yes Notes: Memoria Perles 2-03 (Same As: l 13:57: Tessalon Jim 00 Perles) "Do Not Crush" Blistex 2021-10 Yes Notes: Memoria topical 2-03 Same as: l ointment 13:57: Blistex Juan Jose n 00 albuterol 2021-10 Yes Notes: SEE Me moria 0.083% 2-03 RT l inhalation 13:57: DOCUMENTAT H ermann solution 00 ION (Same as: Proventil) Aquaphor 2021-10 Yes 1 appl, Memori a topical 2-03 Route: l ointment 13:57: TOP, Q4H, Herm rashaad 00 Drug form: OINT, PRN Dry Skin, Start date: 09/17/22 7:57:00 REGULATORY PRODUCT MANAGER, Duration: 30 day, Stop date: 10/17/22 7:56:00 REGULATORY PRODUCT MANAGER, 0 oxyCODONE 5 2021-10 Yes Notes: [place] jeannette mg/5 mL 2-03 (Same l oral 13:57: as:'Roxico [place] solution 00 done) To be drawn up in 3 mL syr oxyCODONE 2021-10 Yes Notes: Memori a immediate 2-03 (Same as: l release 13:57: 'Roxicodon Herm rashaad 00 e) Reglan 2021-10 Yes Notes: Memoria 2-03 (Same as: l 13:57: Reglan) [place] 00 dextrometho 2021-10 Yes Notes: [place] jeannette rphan-guaiF 2-03 (dextromet l ENesin 20 13:57: horphan-gu He rmann mg-200 00 aifenesin mg/10 mL 10-100mg/5 oral liquid ml 10 ml oral SOLN ud) (Same as: Robitussin DM) Robaxin 2021-10 Yes Notes: Memoria 2-03 (Same l 13:57: as:Robaxin [place] 00 ) diphenhydra 2021-10 Yes 1 appl, Mem oria mine-zinc 2-03 Route: l acetate 13:57: TOP, QID, Rashmi nn topical 00 Drug form: 2%-0.1% CRM, PRN cream as needed for itching, Start date: 09/17/22 7:57:00 REGULATORY PRODUCT MANAGER, Duration: 30 day, Stop date: 10/17/22 7:56:00 REGULATORY PRODUCT MANAGER, 0 lidocaine 2021-10 Yes Notes: Memori a 4% topical 2-03 Patch is l film 13:57: applied to [place] 00 intact skin to cover painful area for up to 12 hours in a 24-hour period (12 hours on and 12 hours off). Please indicate the location of applicatio n site. Site 1: Remove old patch before applicatio n of new patch. (Same as Aspercreme Lidocaine Patch) naloxone 2021-10 Yes Notes: Memoria 2-03 Same as l 13:57: Narcan [place] 00 bisacodyl 2021-10 Yes Notes: Memori a 2-03 (Same As: l 13:57: Dulcolax, Jim Bisco-Lax) ondansetron 2021-10 Yes Notes: [place] jeannette 2-03 (Same as: l 13:57: Zofran) MEDICATION WASTE Product Size: 4 mg Product Wasted: ___ mg melatonin 2021-10 Yes Notes: Memori a 2-03 (Same as: l 13:57: Melatonin) [place] Flonase 2021-10 Yes Notes: Memoria 0.05 mg/inh 2-03 (Same as: l nasal spray 13:57: Flonase) He rmann 00 Cepacol 2021-10 Yes Notes: Memoria Sore Throat 2-03 Cepacol l 15 mg-3.6 13:57: lozenges Herm rashaad mg mucous 00 Dispense 1 membrane box = 16 lozenge lozenges (Same As: Cepacol Lozenges) Tums 2021-10 Yes Notes: Memoria 2-03 (Same As: l 13:57: Tums) Jim Calcium Carbonate 500 mg = 200 mg elemental calcium Dose = mg calcium carbonate ( mg elemental calcium) simethicone 2021-10 Yes Notes: [place] jeannette 2-03 (Same as: l 13:57: Mylicon, [place] 00 Phazyme, Genasyme) ocular 2021-10 Yes Notes: Memoria lubricant 2-03 (Same as: l solution 13:57: Aquasite) Herm rashaad 00 sodium 2021-10 Yes Notes: Memoria chloride 2-03 (Same as: l nasal 13:57: [place], Jim solution 00 Deep Sea Nasal [place]). Calmoseptin 2021-10 Yes Notes: [place] jeannette e topical 2-03 (Same as: l ointment 13:57: Calmosepti Her gomez 00 ne) cetirizine 2021-10 Yes Notes: Memor ia 2-03 (Same As: l 13:57: Zyrtec) Jim 00 Tessalon 2021-10 Yes Notes: Memoria Perles 2-03 (Same As: l 13:57: Tessalon Jim 00 Perles) "Do Not Crush" Blistex 2021-10 Yes Notes: Memoria topical 2-03 Same as: l ointment 13:57: Blistex Juan Jose n 00 albuterol 2021-10 Yes Notes: SEE Me moria 0.083% 2-03 RT l inhalation 13:57: DOCUMENTAT H ermann solution 00 ION (Same as: Proventil) Aquaphor 2021-10 Yes 1 appl, Memori a topical 2-03 Route: l ointment 13:57: TOP, Q4H, Herm rashaad 00 Drug form: OINT, PRN Dry Skin, Start date: 09/17/22 7:57:00 REGULATORY PRODUCT MANAGER, Duration: 30 day, Stop date: 10/17/22 7:56:00 REGULATORY PRODUCT MANAGER, 0 oxyCODONE 5 2021-10 Yes Notes: [place] jeannette mg/5 mL 2-03 (Same l oral 13:57: as:'Roxico [place] solution 00 done) To be drawn up in 3 mL syr oxyCODONE 2021-10 Yes Notes: Memori a immediate 2-03 (Same as: l release 13:57: 'Roxicodon Herm rashaad 00 e) Reglan 2021-10 Yes Notes: Memoria 2-03 (Same as: l 13:57: Reglan) [place] 00 dextrometho 2021-10 Yes Notes: [place] jeannette rphan-guaiF 2- (dextromet l ENesin 20 13:57: horphan-gu He rmann mg-200 00 aifenesin mg/10 mL 10-100mg/5 oral liquid ml 10 ml oral SOLN ud) (Same as: Robitussin DM) Robaxin 2021-10 Yes Notes: Memoria 2-03 (Same l 13:57: as:Robaxin [place] 00 ) diphenhydra 2021-10 Yes 1 appl, Mem oria mine-zinc 2- Route: l acetate 13:57: TOP, QID, Rashmi nn topical 00 Drug form: 2%-0.1% CRM, PRN cream as needed for itching, Start date: 09/17/22 7:57:00 REGULATORY PRODUCT MANAGER, Duration: 30 day, Stop date: 10/17/22 7:56:00 REGULATORY PRODUCT MANAGER, 0 levothyroxi 2021-10 Yes Notes: [place] jeannette ne 2-03 Take 1 l 12:30: hour [place] 00 before or 2 hours after meal; Enteral feeds may interefere with the absorption of this medication .(Same as:Levothr oid, Synthroid) liothyronin 2021-10 Yes Notes: [place] jeannette e 2-03 (Same as: l 12:30: Cytomel) [place] 00 levothyroxi 2021-10 Yes Notes: [place] jeannette ne 2-03 Take 1 l 12:30: hour [place] 00 before or 2 hours after meal; Enteral feeds may interefere with the absorption of this medication .(Same as:Levothr oid, Synthroid) liothyronin 2021-10 Yes Notes: [place] jeannette e 2-03 (Same as: l 12:30: Cytomel) Jim 00 levothyroxi 2021-10 Yes Notes: [place] jeannette ne 2-03 Take 1 l 12:30: hour Jim 00 before or 2 hours after meal; Enteral feeds may interefere with the absorption of this medication .(Same as:Levothr oid, Synthroid) liothyronin 2021-10 Yes Notes: [place] jeannette e 2-03 (Same as: l 12:30: Cytomel) [place] acetaminoph 2021-10 No Notes: Max Memoria en 2-03 acetaminop l 04:00: hen 4000 [place] 00 mg/day (4 gm/day). (Same as: Tylenol Extra Strength) acetaminoph 2021-10 No Notes: Max Memoria en 2-03 acetaminop l 04:00: hen 4000 [place] 00 mg/day (4 gm/day). (Same as: Tylenol Extra Strength) acetaminoph 2021-10 No Notes: Max Memoria en 2-03 acetaminop l 04:00: hen 4000 [place] 00 mg/day (4 gm/day). (Same as: Tylenol Extra Strength) senna 2021-10 No Notes: Memoria 2-03 (Same as: l 03:00: Senokot) Jim Flomax 2021-10 Yes Notes: Memoria 2-03 (Same As: l 03:00: Flomax) [place] 00 "Do Not Crush" metoprolol 2021-10 No 25 mg, 1 Mem oria tartrate 2-03 tab, l 03:00: Route: PO, Jim 00 Drug form: TAB, Q12H, Dosing Weight 65.909, kg, Start date: 09/16/22 21:00:00 REGULATORY PRODUCT MANAGER, Duration: 30 day, Stop date: 10/16/22 9:00:00 REGULATORY PRODUCT MANAGER senna 2021-10 No Notes: Memoria 2-03 (Same as: l 03:00: Senokot) Jim Flomax 2021-10 Yes Notes: Memoria 2-03 (Same As: l 03:00: Flomax) Jim "Do Not Crush" metoprolol 2021-10 No 25 mg, 1 Mem oria tartrate 2-03 tab, l 03:00: Route: PO, [place] 00 Drug form: TAB, Q12H, Dosing Weight 65.909, kg, Start date: 09/16/22 21:00:00 REGULATORY PRODUCT MANAGER, Duration: 30 day, Stop date: 10/16/22 9:00:00 REGULATORY PRODUCT MANAGER senna 2021-10 No Notes: Memoria 2-03 (Same as: l 03:00: Senokot) Flomax 2021-10 Yes Notes: Memoria 2-03 (Same As: l 03:00: Flomax) "Do Not Crush" metoprolol 2021-10 No 25 mg, 1 Mem oria tartrate 2-03 tab, l 03:00: Route: PO, Drug form: TAB, Q12H, Dosing Weight 65.909, kg, Start date: 09/16/22 21:00:00 REGULATORY PRODUCT MANAGER, Duration: 30 day, Stop date: 10/16/22 9:00:00 REGULATORY PRODUCT MANAGER lactulose 2021-10 Yes Notes: Memori a 10 g/15 mL 2-02 (Same l oral syrup 23:00: as:Chronul H ermann ac) diclofenac 2021-10 Yes Notes: Memor ia topical 1% 2-02 Same as: l gel 23:00: Voltaren [place] Gel Symbicort 2021-10 Yes Notes: Memori a 160/4.5 2-02 (Same as: l inhalation 23:00: Symbicort) H ermann aerosol 00 WASTE: with Aerosol - adapter Return to Pharmacy lactulose 2021-10 Yes Notes: Memori a 10 g/15 mL 2-02 (Same l oral syrup 23:00: as:Chronul H ermann ac) diclofenac 2021-10 Yes Notes: Memor ia topical 1% 2-02 Same as: l gel 23:00: Vol[place]ren Jim 00 Gel Symbicort 2021-10 Yes Notes: Memori a 160/4.5 2-02 (Same as: l inhalation 23:00: Symbicort) H ermann aerosol 00 WASTE: with Aerosol - adapter Return to Pharmacy lactulose 2021-10 Yes Notes: Memori a 10 g/15 mL 2-02 (Same l oral syrup 23:00: as:Chronul H ermann ac) diclofenac 2021-10 Yes Notes: Memor ia topical 1% 2-02 Same as: l gel 23:00: [place]ren [place] 00 Gel Symbicort 2022-1 Yes Notes: Memori a 160/4.5 2-02 (Same as: l inhalation 23:00: Symbicort) H ermann aerosol 00 WASTE: with Aerosol - adapter Return to Pharmacy albuterol-i 2021-10 No Notes: [place] jeannette pratropium 2-02 (Same as: l 2.5-0.5 mg 20:42: Duoneb) Herm rashaad inhalation 00 solution albuterol-i 2021-10 No Notes: [place] jeannette pratropium 2-02 (Same as: l 2.5-0.5 mg 20:42: Duoneb) Herm rashaad inhalation 00 solution albuterol-i 2021-10 No Notes: [place] jeannette pratropium 2-02 (Same as: l 2.5-0.5 mg 20:42: Duoneb) Herm rashaad inhalation 00 solution polyethylen 2021-10 No Notes: [place] jeannette e glycol 2-02 Dissolve l 3350 20:13: in 8 oz of Jim 00 water or juice. (Same as: Miralax) bisacodyl 2021-10 No Notes: Memori a 2-02 (Same As: l 20:13: Dulcolax, [place] 00 Bisco-Lax) ondansetron 2021-10 No Notes: [place] jeannette 2-02 (Same as: l 20:13: Zofran) [place] MEDICATION WASTE Product Size: 4 mg Product Wasted: ___ mg melatonin 2021-10 No Notes: Memori a 2-02 (Same as: l 20:13: Melatonin) [place] 00 oxyCODONE 2021-10 No Notes: Memori a immediate 2-02 (Same as: l release 20:13: Roxicodone Herm rashaad 00 ) polyethylen 2021-10 No Notes: [place] jeannette e glycol 2-02 Dissolve l 3350 20:13: in 8 oz of Jim 00 water or juice. (Same as: Miralax) bisacodyl 2021-10 No Notes: Memori a 2-02 (Same As: l 20:13: Dulcolax, Jim 00 Bisco-Lax) ondansetron 2021-10 No Notes: [place] jeannette 2-02 (Same as: l 20:13: Zofran) [place] 00 MEDICATION WASTE Product Size: 4 mg Product Wasted: ___ mg melatonin 2021-10 No Notes: Memori a 2-02 (Same as: l 20:13: Melatonin) oxyCODONE 2021-10 No Notes: Memori a immediate 2-02 (Same as: l release 20:13: Roxicodone ) oxyCODONE 2021-10 No Notes: Memori a immediate 2-02 (Same as: l release 20:13: Roxicodone ) polyethylen 2021-10 No Notes: [place] jeannette e glycol - Dissolve l 3350 20:13: in 8 oz of water or juice. (Same as: Miralax) bisacodyl 2021-10 No Notes: Memori a 2-02 (Same As: l 20:13: Dulcolax, Bisco-Lax) ondansetron 2021-10 No Notes: [place] jeannette 2-02 (Same as: l 20:13: Zofran) MEDICATION WASTE Product Size: 4 mg Product Wasted: ___ mg melatonin 2021-10 No Notes: Memori a 2-02 (Same as: l 20:13: Melatonin) tramadol 2021-10 Yes 50 mg, PO, Mem oria 2-02 Q4-6H, PRN l 19:37: Pain, # 20 [place] 00 tab, 0 Refill(s) tramadol 2021-10 Yes 50 mg, PO, Mem oria 2-02 Q4-6H, PRN l 19:37: Pain, # 20 [place] 00 tab, 0 Refill(s) tramadol 2021-10 Yes 50 mg, PO, Mem oria 2-02 Q4-6H, PRN l 19:37: Pain, # 20 [place] 00 tab, 0 Refill(s) Omnipaque 2021-10 No 100 mL, Memor ia 350 mg/mL 11-17 Route: l 15:47: IVP, Drug Form: SOLN, Dosing Weight 65.909, kg, ONCALL, STAT, Start date: 09/16/22 9:47:00 REGULATORY PRODUCT MANAGER, Duration: 1 doses or times, Dose = 2.2ml/kg, Max dose = 100ml -- "To be infused by Radiology Staff ONLY" Omnipaque 2021-10 No 100 mL, Memor ia 350 mg/mL 2 Route: l 15:47: IVP, Drug Jim Form: SOLN, Dosing Weight 65.909, kg, ONCALL, STAT, Start date: 09/16/22 9:47:00 REGULATORY PRODUCT MANAGER, Duration: 1 doses or times, Dose = 2.2ml/kg, Max dose = 100ml -- "To be infused by Radiology Staff ONLY" Omnipaque 2021-10 No 100 mL, Memor ia 350 mg/mL 2 Route: l 15:47: IVP, Drug Jim Form: SOLN, Dosing Weight 65.909, kg, ONCALL, STAT, Start date: 09/16/22 9:47:00 REGULATORY PRODUCT MANAGER, Duration: 1 doses or times, Dose = 2.2ml/kg, Max dose = 100ml -- "To be infused by Radiology Staff ONLY" Benadryl 2021-10 No 50 mg, Memoria 2-02 Route: l 15:27: IVP, ONCE, [place] Dosing Weight 65.909, kg, Priority: STAT, Start date: 09/16/22 9:27:00 REGULATORY PRODUCT MANAGER, Stop date: 09/16/22 9:27:00 REGULATORY PRODUCT MANAGER Benadryl 2021-10 No 50 mg, Memoria 2-02 Route: l 15:27: IVP, ONCE, [place] Dosing Weight 65.909, kg, Priority: STAT, Start date: 09/16/22 9:27:00 REGULATORY PRODUCT MANAGER, Stop date: 09/16/22 9:27:00 REGULATORY PRODUCT MANAGER Benadryl 2021-10 No 50 mg, Memoria 2-02 Route: l 15:27: IVP, ONCE, [place] Dosing Weight 65.909, kg, Priority: STAT, Start date: 09/16/22 9:27:00 REGULATORY PRODUCT MANAGER, Stop date: 09/16/22 9:27:00 REGULATORY PRODUCT MANAGER morphine 2021-10 No Notes: Memoria Sulfate 2-02 (Same l 13:17: as:MORPhin Jim 00 e Sulfate) morphine 2021-10 No Notes: Memoria Sulfate 2-02 (Same l 13:17: as:MORPhin [place] 00 e Sulfate) morphine 2021-10 No Notes: Memoria Sulfate 2- (Same l 13:17: as:MORPhin [place] 00 e Sulfate) Dilaudid 2021-10 No 0.5 mg, Memori a 2- Route: l 11:28: IVP, ONCE, Jim 00 Dosing Weight 65.909, kg, Priority: STAT, Start date: 09/16/22 5:28:00 REGULATORY PRODUCT MANAGER, Stop date: 09/16/22 5:28:00 REGULATORY PRODUCT MANAGER Dilaudid 2021-10 No 0.5 mg, Memori a 2- Route: l 11:28: IVP, ONCE, Dosing Weight 65.909, kg, Priority: STAT, Start date: 09/16/22 5:28:00 REGULATORY PRODUCT MANAGER, Stop date: 09/16/22 5:28:00 REGULATORY PRODUCT MANAGER Dilaudid 2021-10 No 0.5 mg, Memori a 2- Route: l 11:28: IVP, ONCE, Dosing Weight 65.909, kg, Priority: STAT, Start date: 09/16/22 5:28:00 REGULATORY PRODUCT MANAGER, Stop date: 09/16/22 5:28:00 REGULATORY PRODUCT MANAGER morphine 2021-10 No 4 mg, Memoria Sulfate 2- Route: l 10:17: IVP, ONCE, Dosing Weight 65.909, kg, Priority: STAT, Start date: 09/16/22 4:17:00 REGULATORY PRODUCT MANAGER, Stop date: 09/16/22 4:17:00 REGULATORY PRODUCT MANAGER morphine 2021- No 4 mg, Memoria Sulfate 2- Route: l 10:17: IVP, ONCE, Dosing Weight 65.909, kg, Priority: STAT, Start date: 09/16/22 4:17:00 REGULATORY PRODUCT MANAGER, Stop date: 09/16/22 4:17:00 REGULATORY PRODUCT MANAGER morphine 2021- No 4 mg, Memoria Sulfate 2- Route: l 10:17: IVP, ONCE, Dosing Weight 65.909, kg, Priority: STAT, Start date: 09/16/22 4:17:00 REGULATORY PRODUCT MANAGER, Stop date: 09/16/22 4:17:00 REGULATORY PRODUCT MANAGER Omnipaque 2021- No 70 mL, Memori a 350 mg/mL 2- Route: l 08:42: IVP, Drug Jim Form: SOLN, Dosing Weight 65.909, kg, ONCALL, STAT, Start date: 09/16/22 2:42:00 REGULATORY PRODUCT MANAGER, Duration: 1 doses or times, Dose = 2.2ml/kg, Max dose = 100ml -- "To be infused by Radiology Staff ONLY" Omnipaque 2021-10 No 70 mL, Memori a 350 mg/mL 2 Route: l 08:42: IVP, Drug [place] Form: SOLN, Dosing Weight 65.909, kg, ONCALL, STAT, Start date: 09/16/22 2:42:00 REGULATORY PRODUCT MANAGER, Duration: 1 doses or times, Dose = 2.2ml/kg, Max dose = 100ml -- "To be infused by Radiology Staff ONLY" Omnipaque 2021-10 No 70 mL, Memori a 350 mg/mL 2 Route: l 08:42: IVP, Drug Jim Form: SOLN, Dosing Weight 65.909, kg, ONCALL, STAT, Start date: 09/16/22 2:42:00 REGULATORY PRODUCT MANAGER, Duration: 1 doses or times, Dose = 2.2ml/kg, Max dose = 100ml -- "To be infused by Radiology Staff ONLY" morphine 2021-10 No 4 mg, Memoria Sulfate - Route: l 07:44: IVP, ONCE, Jim 00 Dosing Weight 65.909, kg, Priority: STAT, Start date: 09/16/22 1:44:00 REGULATORY PRODUCT MANAGER, Stop date: 09/16/22 1:44:00 REGULATORY PRODUCT MANAGER morphine 2021- No 4 mg, Memoria Sulfate 2- Route: l 07:44: IVP, ONCE, Dosing Weight 65.909, kg, Priority: STAT, Start date: 09/16/22 1:44:00 REGULATORY PRODUCT MANAGER, Stop date: 09/16/22 1:44:00 REGULATORY PRODUCT MANAGER morphine 2021- No 4 mg, Memoria Sulfate 2- Route: l 07:44: IVP, ONCE, Jim 00 Dosing Weight 65.909, kg, Priority: STAT, Start date: 09/16/22 1:44:00 REGULATORY PRODUCT MANAGER, Stop date: 09/16/22 1:44:00 REGULATORY PRODUCT MANAGER morphine 10 2021-0 Yes 10 mg = 5 M emoria mg/5 mL 9-20 ml, PO, l oral 17:28: Q4H, PRN [place] solution 00 Pain, If pain score is only 4-6, take 2.5 ml., X 5 day, # 120 mL, 0 Refill(s), Pharmacy: [facility], 185.42, cm, 06/18/22 15:22:00 CDT, Height, 81.818, kg, 06/18/22 15:22:00 CDT, Weight morphine 10 2021-0 Yes 10 mg = 5 M emoria mg/5 mL 9-20 ml, PO, l oral 17:28: Q4H, PRN Jim solution 00 Pain, If pain score is only 4-6, take 2.5 ml., X 5 day, # 120 mL, 0 Refill(s), Pharmacy: [facility], 185.42, cm, 06/18/22 15:22:00 CDT, Height, 81.818, kg, 06/18/22 15:22:00 CDT, Weight morphine 10 2021-0 Yes 10 mg = 5 M emoria mg/5 mL 9-20 ml, PO, l oral 17:28: Q4H, PRN [place] solution 00 Pain, If pain score is only 4-6, take 2.5 ml., X 5 day, # 120 mL, 0 Refill(s), Pharmacy: [facility], 185.42, cm, 06/18/22 15:22:00 CDT, Height, 81.818, kg, 06/18/22 15:22:00 CDT, Weight morphine 10 2021-0 Yes 10 mg = 5 M emoria mg/5 mL 9-20 ml, PO, l oral 17:28: Q4H, PRN Jim solution 00 Pain, If pain score is only 4-6, take 2.5 ml., X 5 day, # 120 mL, 0 Refill(s), Pharmacy: [facility], 185.42, cm, 06/18/22 15:22:00 CDT, Height, 81.818, kg, 06/18/22 15:22:00 CDT, Weight morphine 10 2021-0 Yes 10 mg = 5 M emoria mg/5 mL 9-20 ml, PO, l oral 17:28: Q4H, PRN [place] solution 00 Pain, If pain score is only 4-6, take 2.5 ml., X 5 day, # 120 mL, 0 Refill(s), Pharmacy: [facility], 185.42, cm, 06/18/22 15:22:00 CDT, Height, 81.818, kg, 06/18/22 15:22:00 CDT, Weight morphine 10 0 Yes 10 mg = 5 M emoria mg/5 mL 9-20 mL, PO, l oral 14:14: Q4H, PRN Jim solution 00 Pain Score 7-10, Patient is on Hospice care Take 2.5 ml if pain is scored 4-6., X 5 day, # 120 mL, 0 Refill(s), Pharmacy: [facility], 185.42, cm, 06/18/22 15:22:00 CDT, Height, 81.818, kg, 06/18/22 15:22:00 CDT, We... morphine 0 Yes 10 mg = 5 M emoria mg/5 mL 9-20 mL, PO, l oral 14:14: Q4H, PRN [place] solution 00 Pain Score 7-10, Patient is on Hospice care Take 2.5 ml if pain is scored 4-6., X 5 day, # 120 mL, 0 Refill(s), Pharmacy: [facility], 185.42, cm, 06/18/22 15:22:00 CDT, Height, 81.818, kg, 06/18/22 15:22:00 CDT, We... morphine 0 Yes 10 mg = 5 M emoria mg/5 mL 9-20 mL, PO, l oral 14:14: Q4H, PRN Jim solution 00 Pain Score 7-10, Patient is on Hospice care Take 2.5 ml if pain is scored 4-6., X 5 day, # 120 mL, 0 Refill(s), Pharmacy: [facility], 185.42, cm, 06/18/22 15:22:00 CDT, Height, 81.818, kg, 06/18/22 15:22:00 CDT, We... morphine 10 Yes 10 mg = 5 M emoria mg/5 mL 9-20 mL, PO, l oral 14:14: Q4H, PRN Jim solution 00 Pain Score 7-10, Patient is on Hospice care Take 2.5 ml if pain is scored 4-6., X 5 day, # 120 mL, 0 Refill(s), Pharmacy: [facility], 185.42, cm, 06/18/22 15:22:00 CDT, Height, 81.818, kg, 06/18/22 15:22:00 CDT, We... morphine 10 0 Yes 10 mg = 5 M emoria mg/5 mL 9-20 mL, PO, l oral 14:14: Q4H, PRN [place] solution 00 Pain Score 7-10, Patient is on Hospice care Take 2.5 ml if pain is scored 4-6., X 5 day, # 120 mL, 0 Refill(s), Pharmacy: [facility], 185.42, cm, 06/18/22 15:22:00 CDT, Height, 81.818, kg, 06/18/22 15:22:00 CDT, We... metoprolol Yes 25 mg = 1 Me moria tartrate 25 9-20 tab, PO, l mg oral 14:13: Q12H, # 60 Herm rashaad tablet 00 tab, 0 Refill(s), Pharmacy: [facility], 185.42, cm, 06/18/22 15:22:00 CDT, Height, 81.818, kg, 06/18/22 15:22:00 CDT, Weight metoprolol Yes 25 mg = 1 Me moria tartrate 25 9-20 tab, PO, l mg oral 14:13: Q12H, # 60 Herm rashaad tablet 00 tab, 0 Refill(s), Pharmacy: [facility], 185.42, cm, 06/18/22 15:22:00 CDT, Height, 81.818, kg, 06/18/22 15:22:00 CDT, Weight metoprolol Yes 25 mg = 1 Me moria tartrate 25 9-20 tab, PO, l mg oral 14:13: Q12H, # 60 Herm rashaad tablet 00 tab, 0 Refill(s), Pharmacy: [facility], 185.42, cm, 06/18/22 15:22:00 CDT, Height, 81.818, kg, 06/18/22 15:22:00 CDT, Weight metoprolol Yes 25 mg = 1 Me moria tartrate 25 9-20 tab, PO, l mg oral 14:13: Q12H, # 60 Herm rashaad tablet 00 tab, 0 Refill(s), Pharmacy: [facility], 185.42, cm, 06/18/22 15:22:00 CDT, Height, 81.818, kg, 06/18/22 15:22:00 CDT, Weight metoprolol Yes 25 mg = 1 Me moria tartrate 25 9-20 tab, PO, l mg oral 14:13: Q12H, # 60 Herm rashaad tablet 00 tab, 0 Refill(s), [facility] [facility], 185.42, cm, 06/18/22 15:22:00 CDT, Height, 81.818, kg, 06/18/22 15:22:00 CDT, Weight melatonin No Notes: Memori a 9-18 (Same as: l 15:56: Melatonin) Roxanol No Notes: Memoria 9-18 (Same l 15:56: as:MORPhin Jim 00 e Sulfate) melatonin No Notes: Memori a 9-18 (Same as: l 15:56: Melatonin) Roxanol No Notes: Memoria 9-18 (Same l 15:56: as:MORPhin Jim 00 e Sulfate) melatonin No Notes: Memori a 9-18 (Same as: l 15:56: Melatonin) Roxanol No Notes: Memoria 9-18 (Same l 15:56: as:MORPhin Jim 00 e Sulfate) melatonin No Notes: Memori a 9-18 (Same as: l 15:56: Melatonin) Roxanol No Notes: Memoria 9-18 (Same l 15:56: as:MORPhin Jim 00 e Sulfate) melatonin No Notes: Memori a 9-18 (Same as: l 15:56: Melatonin) [place] 00 Roxanol No Notes: Memoria 9-18 (Same l 15:56: as:MORPhin [place] 00 e Sulfate) Lasix No Notes: Memoria 9-17 (Same as: l 22:15: Lasix) Jim 00 MEDICATION WASTE Product Size: 40 mg Product Wasted: 0 mg Lasix No Notes: Memoria 9-17 (Same as: l 22:15: Lasix) [place] 00 MEDICATION WASTE Product Size: 40 mg Product Wasted: 0 mg Lasix No Notes: Memoria 9-17 (Same as: l 22:15: Lasix) Jim 00 MEDICATION WASTE Product Size: 40 mg Product Wasted: 0 mg Lasix No Notes: Memoria 9-17 (Same as: l 22:15: Lasix) [place] 00 MEDICATION WASTE Product Size: 40 mg Product Wasted: 0 mg Lasix No Notes: Memoria 9-17 (Same as: l 22:15: Lasix) Jim 00 MEDICATION WASTE Product Size: 40 mg Product Wasted: 0 mg liothyronin No Notes: Chilango jeannette e 9-17 (Same as: l 14:16: Cytomel) Jim liothyronin No Notes: [place] jeannette e 9-17 (Same as: l 14:16: Cytomel) [place] liothyronin No Notes: [place] jeannette e 9-17 (Same as: l 14:16: Cytomel) [place] liothyronin No Notes: [place] jeannette e 9-17 (Same as: l 14:16: Cytomel) [place] liothyronin No Notes: [place] jeannette e 9-17 (Same as: l 14:16: Cytomel) [place] morphine No Notes: Memoria Sulfate 9-17 (Same l 12:33: as:MORPhin [place] 00 e Sulfate) morphine No Notes: Memoria Sulfate 9-17 (Same l 12:33: as:MORPhin [place] 00 e Sulfate) morphine No Notes: Memoria Sulfate 9-17 (Same l 12:33: as:MORPhin [place] 00 e Sulfate) morphine No Notes: Memoria Sulfate 9-17 (Same l 12:33: as:MORPhin [place] 00 e Sulfate) morphine No Notes: Memoria Sulfate 9-17 (Same l 12:33: as:MORPhin Jim 00 e Sulfate) Lasix No Notes: Memoria 9-17 (Same as: l 12:18: Lasix) [place] 00 MEDICATION WASTE Product Size: 40 mg [...] Memoria 9-17 (Same as: l 12:18: Lasix) [place] 00 MEDICATION WASTE Product Size: 40 mg Product Wasted: ___ mg Lasix No Notes: Memoria 9-17 (Same as: l 12:18: Lasix) [place] 00 MEDICATION WASTE Product Size: 40 mg Product Wasted: ___ mg methylPREDN No Notes: Chilango jeannette ISolone 9-17 (Same l SODium 09:38: as:Solu-ME Rashmi nn SUCCinate 00 DROL, A-Methapre d) methylPREDN No Notes: [place] jeannette ISolone 9-17 (Same l SODium 09:38: as:Solu-ME Rashmi nn SUCCinate 00 DROL, A-Methapre d) methylPREDN No Notes: [place] jeannette ISolone - (Same l SODium 09:38: as:Solu-ME Rashmi nn SUCCinate 00 DROL, A-Methapre d) methylPREDN No Notes: [place] jeannette ISolone 07-02 (Same l SODium 09:38: as:Solu-ME Rashmi nn SUCCinate 00 DROL, A-Methapre d) methylPREDN No Notes: Chialngo jeannette ISolone 07-02 (Same l SODium 09:38: as:Solu-ME Rashmi nn SUCCinate 00 DROL, A-Methapre d) Combivent Yes Notes: Memori a Respimat 07-02 Same as: l CFC free 09:37: Combivent Herm rashaad 100 mcg-20 00 Respimat mcg/inh WASTE: inhalation Aerosol - [facility]: Memori a Respimat 07-02 Same as: l CFC free 09:37: Combivent Herm rashaad 100 mcg-20 00 Respimat mcg/inh WASTE: inhalation Aerosol - aerosol [facility] Notes: Memori a Respimat 07-02 Same as: l CFC free 09:37: Combivent Herm rashaad 100 mcg-20 00 Respimat mcg/inh WASTE: inhalation Aerosol - aerosol [facility] Notes: Memori a Respimat 07-02 Same as: l CFC free 09:37: Combivent Herm rashaad 100 mcg-20 00 Respimat mcg/inh WASTE: inhalation Aerosol - aerosol [facility] Notes: Memori a Respimat 07-02 Same as: l CFC free 09:37: Combivent Herm rashaad 100 mcg-20 00 Respimat mcg/inh WASTE: inhalation Aerosol - aerosol Return to Pharmacy Adult No Notes: Memoria Parenteral 07-02 Must use l Nutrition 03:00: 1.2 micron He rmann filter AND Peripheral Lipids (PPN not should [...] or peanuts. Adult No Notes: Memoria Parenteral 17 Must use l Nutrition 03:00: 1.2 micron [...] as: l 21:00: BD Jim 00 Posiflush) Saline No Notes: Memoria Flush 0.9% 9-16 (Same as: l 21:00: BD Jim 00 Posiflush) Saline No Notes: Memoria Flush 0.9% 9-16 (Same as: l 21:00: BD Jim 00 Posiflush) Saline No Notes: Memoria Flush 0.9% 9-16 (Same as: l 21:00: BD [place] 00 Posiflush) Saline No Notes: Memoria Flush 0.9% 9-16 (Same as: l 21:00: BD [place] 00 Posiflush) Isolyte S No Notes: Memori a PH 7.4 9-16 (Same as: l 1,000 mL 20:14: Isolyte S Herm rashaad 00 PH7.4, Normosol-R PH 7.4, Plasma-Lyt e A ) Isolyte S No Notes: Memori a PH 7.4 9-16 (Same as: l 1,000 mL 20:14: Isolyte S Herm rashaad 00 PH7.4, Normosol-R PH 7.4, Plasma-Lyt e A ) Isolyte S No Notes: Memori a PH 7.4 9-16 (Same as: l 1,000 mL 20:14: Isolyte S Herm rashaad 00 PH7.4, Normosol-R PH 7.4, Plasma-Lyt e A ) Isolyte S No Notes: Memori a PH 7.4 9-16 (Same as: l 1,000 mL 20:14: Isolyte S Herm rashaad 00 PH7.4, Normosol-R PH 7.4, Plasma-Lyt e A ) Isolyte S No Notes: Memori a PH 7.4 9-16 (Same as: l 1,000 mL 20:14: Isolyte S Herm rashaad 00 PH7.4, Normosol-R PH 7.4, Plasma-Lyt e [...] 9-16 (Same as: l 20:00: KCL) 10 [place] 00 mEq/100ml product recommende d for peripheral line administra tion. Infuse no faster than 10 mEq/hr if given peripheral ly. potassium No Notes: Memori a chloride 9-16 (Same as: l 20:00: KCL) 10 [place] 00 mEq/100ml product recommende d for peripheral line administra tion. Infuse no faster than 10 mEq/hr if given peripheral ly. potassium No Notes: Memori a chloride 9-16 (Same as: l 20:00: KCL) 10 [place] 00 mEq/100ml product recommende d for peripheral line administra tion. Infuse no faster than 10 mEq/hr if given peripheral ly. LR IV 1,000 2022-0 No 1,000 mL, M emoria mL 9-16 Rate: 125 l 19:57: ml/hr, Jim 00 Infuse over: 8 hr, Route: IV, Dosing Weight 81.818 kg, Total Volume: 1,000, Start date: 07/01/22 14:57:00 CDT, Duration: 2 day, Stop date: 07/03/22 14:56:00 CDT, BSA: 2.06 m2, 0 LR IV 1,000 2022-0 No 1,000 mL, M emoria mL 9-16 Rate: 125 l 19:57: ml/hr, Jim 00 Infuse over: 8 hr, Route: IV, Dosing Weight 81.818 kg, Total Volume: 1,000, Start date: 07/01/22 14:57:00 CDT, Duration: 2 day, Stop date: 07/03/22 14:56:00 CDT, BSA: 2.06 m2, 0 LR IV 1,000 2-0 No 1,000 mL, M emoria mL 9-16 Rate: 125 l 19:57: ml/hr, Jim 00 Infuse over: 8 hr, Route: IV, Dosing Weight 81.818 kg, Total Volume: 1,000, Start date: 07/01/22 14:57:00 CDT, Duration: 2 day, Stop date: 07/03/22 14:56:00 CDT, BSA: 2.06 m2, 0 LR IV 1,000 2-0 No 1,000 mL, M emoria mL 9-16 Rate: 125 l 19:57: ml/hr, [place] 00 Infuse over: 8 hr, Route: IV, Dosing Weight 81.818 kg, Total Volume: 1,000, Start date: 07/01/22 14:57:00 CDT, Duration: 2 day, Stop date: 07/03/22 14:56:00 CDT, BSA: 2.06 m2, 0 LR IV 1,000 2-0 No 1,000 mL, M emoria mL 9-16 Rate: 125 l 19:57: ml/hr, [place] 00 Infuse over: 8 hr, Route: IV, Dosing Weight 81.818 kg, Total Volume: 1,000, Start date: 07/01/22 14:57:00 CDT, Duration: 2 day, Stop date: 07/03/22 14:56:00 CDT, BSA: 2.06 m2, 0 bisacodyl No Notes: Memori a 9-16 (Same As: l 19:00: Dulcolax, [place] 00 Bisco-Lax) bisacodyl No Notes: Memori a 9-16 (Same As: l 19:00: Dulcolax, [place] 00 Bisco-Lax) bisacodyl No Notes: Memori a [...] Non-Formul vicky Venelex No Notes: Memoria topical -16 Same as: l ointment 14:20: Venelex Juan Jose n 00 Non-Formul vicky Venelex No Notes: Memoria topical -16 Same as: l ointment 14:20: Venelex Juan Jose n 00 Non-Formul vicky Venelex No Notes: Memoria topical -16 Same as: l ointment 14:20: Venelex Juan Jose n 00 Non-Formul vicky Venelex No Notes: Memoria topical -16 Same as: l ointment 14:20: Venelex Juan Jose n 00 Non-Formul vicky levothyroxi No Notes: Chil[place] jeannette ne 07-01 (Same as: l 14:00: Synthroid) Jim 00 Reconstitu te with 5ml of NS. Final concentrat ion = 20 micrograms /ml. Shake well and use immediatel y after reconstitu tion and discard remaining solution. lidocaine 2021-0 No Notes: Memori a 1% 9-16 Preservati [...] reconstitu tion and discard remaining solution. lidocaine 0 No Notes: Memori a 1% 9-16 Preservati l 14:00: ve free. (Same as: Xylocaine MPF) levothyroxi 0 No Notes: [place] jeannette ne 9-16 (Same as: l 14:00: Synthroid) Reconstitu te with 5ml of NS. Final concentrat ion = 20 micrograms /ml. Shake well and use immediatel y after reconstitu tion and discard remaining solution. lidocaine 2021-0 No Notes: Memori a 1% 9-16 Preservati l 14:00: ve free. Jim 00 (Same as: Xylocaine MPF) Saline No Notes: Memoria Flush 0.9% 9-16 (Same as: l 13:13: BD [place] 00 Posiflush) Saline No Notes: Memoria Flush 0.9% 9-16 (Same as: l 13:13: BD Jim 00 Posiflush) Saline No Notes: Memoria Flush 0.9% 9-16 (Same as: l 13:13: BD Jim Posiflush) Saline No Notes: Memoria Flush 0.9% 9-16 (Same as: l 13:13: BD [place] 00 Posiflush) Saline No Notes: Memoria Flush 0.9% 9-16 (Same as: l 13:13: BD [place] Posiflush) piperacilli No Notes: Chilango jeannette n-tazobacta 9-16 (Same as: l m 12:00: Zosyn) Dosing based on Piperacill in component MEDICATION WASTE Product Size: 3375 mg Product Wasted: 0 mg piperacilli No Notes: Chilango jeannette n-tazobacta 9-16 (Same as: l m 12:00: Zosyn) Dosing based on Piperacill in component MEDICATION WASTE Product Size: 3375 mg Product Wasted: 0 mg piperacilli No Notes: Ch[place] jeannette n-tazobacta 9-16 (Same as: l m 12:00: Zosyn) Dosing based on Piperacill in component MEDICATION WASTE Product Size: 3375 mg Product Wasted: 0 mg piperacilli No Notes: [place] jeannette n-tazobacta 9-16 (Same as: l m 12:00: Zosyn) Dosing based on Piperacill in component MEDICATION WASTE Product Size: 3375 mg Product Wasted: 0 mg piperacilli 0 No Notes: [place] jeannette n-tazobacta 9-16 (Same as: l m 12:00: Zosyn) [place] 00 Dosing based on Piperacill in component MEDICATION WASTE Product Size: 3375 mg Product Wasted: 0 mg LR IV 500 2021-0 No 500 mL, Memor ia mL 9-16 Rate: 500 l 11:56: ml/hr, Jim 00 Infuse over: 1 hr, Route: IV, Dosing Weight 81.818 kg, Total Volume: 500, Start date: 07/01/22 6:56:00 CDT, Duration: 1 doses or times, Stop date: 07/01/22 7:55:00 CDT, BSA: 2.06 m2, 0 LR IV 500 2021-0 No 500 mL, Memor ia mL 9-16 Rate: 500 l 11:56: ml/hr, Jim 00 Infuse over: 1 hr, Route: IV, Dosing Weight 81.818 kg, Total Volume: 500, Start date: 07/01/22 6:56:00 CDT, Duration: 1 doses or times, Stop date: 07/01/22 7:55:00 CDT, BSA: 2.06 m2, 0 LR IV 500 2021-0 No 500 mL, Memor ia mL 9-16 Rate: 500 l 11:56: ml/hr, Jim 00 Infuse over: 1 hr, Route: IV, Dosing Weight 81.818 kg, Total Volume: 500, Start date: 07/01/22 6:56:00 CDT, Duration: 1 doses or times, Stop date: 07/01/22 7:55:00 CDT, BSA: 2.06 m2, 0 LR IV 500 2021-0 No 500 mL, Memor ia mL 9-16 Rate: 500 l 11:56: ml/hr, [place] 00 Infuse over: 1 hr, Route: IV, Dosing Weight 81.818 kg, Total Volume: 500, Start date: 07/01/22 6:56:00 CDT, Duration: 1 doses or times, Stop date: 07/01/22 7:55:00 CDT, BSA: 2.06 m2, 0 LR IV 500 2021-0 No 500 mL, Memor ia mL 9-16 Rate: 500 l 11:56: ml/hr, Jim 00 Infuse over: 1 hr, Route: IV, Dosing Weight 81.818 kg, Total Volume: 500, Start date: 07/01/22 6:56:00 CDT, Duration: 1 doses or times, Stop date: 07/01/22 7:55:00 CDT, BSA: 2.06 m2, 0 MiraLax No Notes: Memoria 9-15 Dissolve l 22:00: in 8 oz of [place] 00 water or juice. (Same as: Miralax) senna 8.6 No Notes: Memori a mg oral 9-15 (Same as: l tablet 22:00: Senokot) [place] naproxen No Notes: Memoria 9-15 (Same as: l 22:00: Naprosyn) [place] 00 Take with food. MiraLax No Notes: Memoria 9-15 Dissolve l 22:00: in 8 oz of [place] 00 water or juice. (Same as: Miralax) senna 8.6 No Notes: Memori a mg oral 9-15 (Same as: l tablet 22:00: Senokot) [place] naproxen No Notes: Memoria 9-15 (Same as: l 22:00: Naprosyn) Jim 00 Take with food. MiraLax No Notes: Memoria 9-15 Dissolve l 22:00: in 8 oz of [place] 00 water or juice. (Same as: Miralax) senna 8.6 No Notes: Memori a mg oral 9-15 (Same as: l tablet 22:00: Senokot) Jim naproxen No Notes: Memoria 9-15 (Same as: l 22:00: Naprosyn) [place] 00 Take with food. MiraLax No Notes: Memoria 9-15 Dissolve l 22:00: in 8 oz of [place] 00 water or juice. (Same as: Miralax) senna 8.6 No Notes: Memori a mg oral 9-15 (Same as: l tablet 22:00: Senokot) [place] 00 naproxen No Notes: Memoria 9-15 (Same as: l 22:00: Naprosyn) Jim 00 Take with food. MiraLax No Notes: Memoria 9-15 Dissolve l 22:00: in 8 oz of Jim 00 water or juice. (Same as: Miralax) senna 8.6 No Notes: Memori a mg oral 9-15 (Same as: l tablet 22:00: Senokot) [place] 00 naproxen No Notes: Memoria 9-15 (Same as: l 22:00: Naprosyn) [place] 00 Take with food. tramadol 50 No [...] oria 9-15 IV push l 12:30: reconstitu [place] 00 te with 10 ml 0.9% sodium [...] over 2 minutes. (Same as: Protonix) Protonix 2021-0 No Notes: For Mem oria 9-15 IV push l 12:30: reconstitu [place] 00 te with 10 ml 0.9% sodium chloride and push over 2 minutes. (Same as: Protonix) D5LR 1,000 2021-0 No 1,000 mL, Me moria mL 9-15 Rate: 100 l 12:28: ml/hr, [place] 00 Infuse over: 10 hr, Route: IV, Dosing Weight 81.818 kg, Total Volume: 1,000, Start date: 06/30/22 7:28:00 CDT, Duration: 30 day, Stop date: 07/30/22 7:27:00 CDT, BSA: 2.06 m2, 0 D5LR 1,000 2021-0 No 1,000 mL, Me moria mL 9-15 Rate: 100 l 12:28: ml/hr, [place] 00 Infuse over: 10 hr, Route: IV, [...] mL 9-15 Rate: 100 l 12:28: ml/hr, [place] 00 Infuse over: 10 hr, Route: IV, [...] jd 9-15 (Same as: l 12:00: Reglan) [place] metoclopram No Notes: Chilango jeannette jd 9-15 (Same as: l 12:00: Reglan) Jim metoclopram No Notes: [place] jeannette jd 9-15 (Same as: l 12:00: Reglan) [place] 00 metoclopram No Notes: [place] jeannette jd 9-15 (Same as: l 12:00: Reglan) [place] metoclopram No Notes: Chilango jeannette jd 9-15 (Same as: l 12:00: Reglan) Jim remove No Notes: Memoria patch 9-15 Remove [...] 9-15 (Same as: l 02:00: Lopressor) Jim metoprolol No Notes: Memor ia tartrate 9-15 (Same as: l 02:00: Lopressor) Jim metoprolol 0 No Notes: Memor ia tartrate 9-15 (Same as: l 02:00: Lopressor) Jim 00 metoprolol No Notes: Memor ia tartrate 9-15 (Same as: l 02:00: Lopressor) [place] 00 metoprolol 0 No Notes: Memor ia tartrate 9-15 (Same as: l 02:00: Lopressor) Jim 00 hydromorpho No Notes: [place] jeannette ne 9-14 Same as: l 22:49: Dilaudid [place] 00 hydromorpho No Notes: Ch[place] jeannette ne 9-14 Same as: l 22:49: Dilaudid [place] 00 hydromorpho No Notes: Chilango jeannette ne 9-14 Same as: l 22:49: Dilaudid [place] 00 hydromorpho No Notes: Chilango jeannette ne 9-14 Same as: l 22:49: Dilaudid [place] 00 hydromorpho No Notes: Ch[place] jeannette ne 9-14 Same as: l 22:49: Dilaudid [place] 00 lidocaine No Notes: Memori a topical 9-14 Patch is l 16:00: applied to [place] 00 intact skin to cover painful area [...] 9-14 Patch is l 16:00: applied to [place] 00 intact skin to cover painful area for up to 12 hours in a 24-hour period (12 hours on and 12 hours off). Please indicate the location of applicatio n site. Site 1: Remove old patch before applicatio n of new patch. (Same as Aspercreme Lidocaine Patch) lidocaine No Notes: Memori a topical 9-14 Patch is l 16:00: applied to [place] 00 intact skin to cover painful area [...] mL 9-14 Rate: 125 l 13:03: ml/hr, [place] 00 Infuse over: 8 hr, Route: IV, [...] 06/29/22 8:03:00 CDT, 0 LR IV 1,000 2022-0 No 1,000 mL, M emoria mL 9-14 Rate: 125 l 13:03: ml/hr, [place] Infuse over: 8 hr, Route: IV, Dosing Weight 81.818 kg, Total Volume: 1,000, Start date: 06/29/22 8:03:00 CDT, Duration: 2 day, Stop date: 07/01/22 8:02:00 CDT, BSA: 2.06 m2, 0 Lactated 2022-0 No 1,000 mL, Chilango jeannette Ringers 9-14 1,000 l (Bolus) IV 13:03: ml/hr, Rashmi nn Infuse Over: 1 hr, Route: IV, 1,000, Drug form: INJ, ONCE, Dosing Weight 81.818 kg, Start date: 06/29/22 8:03:00 CDT, Stop date: 06/29/22 8:03:00 CDT, 0 Lactated 2022-0 No 1,000 mL, Chilango jeannette Ringers 9-14 1,000 l (Bolus) IV 13:03: ml/hr, Rashmi nn Infuse Over: 1 hr, Route: IV, 1,000, Drug form: INJ, ONCE, Dosing Weight 81.818 kg, Start date: 06/29/22 8:03:00 CDT, Stop date: 06/29/22 8:03:00 CDT, 0 LR IV 1,000 2022-0 No 1,000 mL, M emoria mL 9-14 Rate: 125 l 13:03: ml/hr, Jim Infuse over: 8 hr, Route: IV, Dosing Weight 81.818 kg, Total Volume: 1,000, Start date: 06/29/22 8:03:00 CDT, Duration: 2 day, Stop date: 07/01/22 8:02:00 CDT, BSA: 2.06 m2, 0 LR IV 1,000 2022-0 No 1,000 mL, M emoria mL 9-14 Rate: 125 l 13:03: ml/hr, [place] 00 Infuse over: 8 hr, Route: IV, Dosing Weight 81.818 kg, Total Volume: 1,000, Start date: 06/29/22 8:03:00 CDT, Duration: 2 day, Stop date: 07/01/22 8:02:00 CDT, BSA: 2.06 m2, 0 Lactated No 1,000 mL, [place] jeannette Ringers 9-14 1,000 l (Bolus) IV 13:03: ml/hr, Rashmi nn 00 Infuse Over: 1 hr, Route: IV, 1,000, Drug form: INJ, ONCE, Dosing Weight 81.818 kg, Start date: 06/29/22 8:03:00 CDT, Stop date: 06/29/22 8:03:00 CDT, 0 LR IV 1,000 0 No 1,000 mL, Tina emoria mL 9-14 Rate: 125 l 13:03: ml/hr, [place] 00 Infuse over: 8 hr, Route: IV, Dosing Weight 81.818 kg, Total Volume: 1,000, Start date: 06/29/22 8:03:00 CDT, Duration: 2 day, Stop date: 07/01/22 8:02:00 CDT, BSA: 2.06 m2, 0 remove No Notes: Memoria patch 9-14 Remove l 09:00: patch 12 Jim 00 hours after applicatio n each day. remove No Notes: Memoria patch 9-14 Remove l 09:00: patch 12 [place] 00 hours after applicatio n each day. remove No Notes: Memoria patch 9-14 Remove l 09:00: patch 12 Jim 00 hours after applicatio n each day. remove No Notes: Memoria patch 9-14 Remove l 09:00: patch 12 [place] 00 hours after applicatio n each day. remove No Notes: Memoria patch 9-14 Remove l 09:00: patch 12 Jim 00 hours after applicatio n each day. lidocaine No Notes: Memori a topical 9-13 Patch is l 21:00: applied to [place] 00 intact skin to cover painful area for up to 12 hours in a 24-hour period (12 hours on and 12 hours off). Please indicate the location of applicatio n site. Site 1: Remove old patch before applicatio n of new patch. (Same as Aspercreme Lidocaine Patch) lidocaine No Notes: Memori a topical 9-13 Patch is l 21:00: applied to [place] 00 intact skin to cover painful area for up to 12 hours in a 24-hour period (12 hours on and 12 hours off). Please indicate the location of applicatio n site. Site 1: Remove old patch before applicatio n of new patch. (Same as Aspercreme Lidocaine Patch) lidocaine No Notes: Memori a topical 9-13 Patch is l 21:00: applied to [place] 00 intact skin to cover painful area [...] 9-13 Patch is l 21:00: applied to [place] 00 intact skin to cover painful area for up to 12 hours in a 24-hour period (12 hours on and 12 hours off). Please indicate the location of applicatio n site. Site 1: Remove old patch before applicatio n of new patch. (Same as Aspercreme Lidocaine Patch) polyethylen No Notes: Chil[place] jeannette e glycol 9-12 Dissolve l 3350 14:21: in 8 oz of [place] 00 water or juice. (Same as: Miralax) senna No Notes: Memoria 9-12 (Same as: l 14:21: Senokot) Jim 00 polyethylen No Notes: [place] jeannette e glycol 9-12 Dissolve l 3350 14:21: in 8 oz of Jim 00 water or juice. (Same as: Miralax) senna No Notes: Memoria 9-12 (Same as: l 14:21: Senokot) [place] 00 polyethylen No Notes: [place] jeannette e glycol 9-12 Dissolve l 3350 14:21: in 8 oz of Jim 00 water or juice. (Same as: Miralax) senna No Notes: Memoria 9-12 (Same as: l 14:21: Senokot) Jim 00 polyethylen No Notes: Chilanog jeannette e glycol 9-12 Dissolve l 3350 [...] Memoria 9-12 (Same as: l 14:21: Senokot) [place] 00 Robaxin No Notes: Memoria 9-10 (Same l 23:19: as:Robaxin [place] 00 ) Robaxin No Notes: Memoria 9-10 (Same l 23:19: as:Robaxin [place] 00 ) Robaxin No Notes: Memoria 9-10 (Same l 23:19: as:Robaxin Jim 00 ) Robaxin No Notes: Memoria 9-10 (Same l 23:19: as:Robaxin [place] 00 ) Robaxin No Notes: Memoria 9-10 (Same l 23:19: as:Robaxin Jim 00 ) Robaxin No Notes: Memoria 9-10 (Same l 14:47: as:Robaxin [place] 00 ) Robaxin No Notes: Memoria 9-10 (Same l 14:47: as:Robaxin [place] 00 ) Robaxin No Notes: Memoria 9-10 (Same l 14:47: as:Robaxin Jim 00 ) Robaxin No Notes: Memoria 9-10 (Same l 14:47: as:Robaxin Jim 00 ) Robaxin No Notes: Memoria 9-10 (Same l 14:47: as:Robaxin Jim 00 ) morphine No Notes: Memoria Sulfate 9-10 (Same l 14:46: as:MORPhin Jim 00 e Sulfate) morphine 15 No Notes: Chilango jeannette mg oral 9-10 (Same l tablet 14:46: as:MORPhin Rashmi nn 00 e Sulfate) morphine No Notes: Memoria Sulfate 9-10 (Same l 14:46: as:MORPhin [place] 00 e Sulfate) morphine 15 No Notes: [place] jeannette mg oral 9-10 (Same l tablet 14:46: as:MORPhin Rashmi nn 00 e Sulfate) morphine No Notes: Memoria Sulfate 9-10 (Same l 14:46: as:MORPhin [place] 00 e Sulfate) morphine 15 No Notes: [place] jeannette mg oral 9-10 (Same l tablet 14:46: as:MORPhin Rashmi nn 00 e Sulfate) morphine No Notes: Memoria Sulfate 9-10 (Same l 14:46: as:MORPhin [place] 00 e Sulfate) morphine 15 No Notes: [place] jeannette mg oral 9-10 (Same l tablet 14:46: as:MORPhin Rashmi nn 00 e Sulfate) morphine No Notes: Memoria Sulfate 9-10 (Same l 14:46: as:MORPhin [place] 00 e Sulfate) morphine 15 No Notes: [place] jeannette mg oral 9-10 (Same l tablet 14:46: as:MORPhin Rashmi nn 00 e Sulfate) ceFAZolin No Notes: Memori a 9-10 (Same as l 03:00: Ancef) [place] 00 ceFAZolin No Notes: Memori a 9-10 (Same as l 03:00: Ancef) [place] ceFAZolin 2021-0 No Notes: Memori a 9-10 (Same as l 03:00: Ancef) [place] ceFAZolin 2021-0 No Notes: Memori a 9-10 (Same as l 03:00: Ancef) Jim 00 ceFAZolin 2-0 No Notes: Memori a 9-10 (Same as l 03:00: Ancef) Jim ceFAZolin 2-0 No 2 gm, Memoria 9-10 Route: l 00:00: IVPB, Jim 00 [id number], Dosing Weight 81.818, kg, Start date: 06/24/22 19:00:00 CDT, Duration: 1 day, Stop date: 06/25/22 11:00:00 CDT, ABX Indication : Surgical Prophylaxi s ceFAZolin 2022-0 No 2 gm, Memoria 9-10 Route: l 00:00: IVPB, Jim 00 [id number], Dosing Weight 81.818, kg, Start date: 06/24/22 19:00:00 CDT, Duration: 1 day, Stop date: 06/25/22 11:00:00 CDT, ABX Indication : Surgical Prophylaxi s ceFAZolin 2022-0 No 2 gm, Memoria 9-10 Route: l 00:00: IVPB, Oceano 00 [id number], Dosing Weight 81.818, kg, Start date: 06/24/22 19:00:00 CDT, Duration: 1 day, Stop date: 06/25/22 11:00:00 CDT, ABX Indication : Surgical Prophylaxi s ceFAZolin 2022-0 No 2 gm, Memoria 9-10 Route: l 00:00: IVPB, Jim 00 [id number], Dosing Weight 81.818, kg, Start date: 06/24/22 19:00:00 CDT, Duration: 1 day, Stop date: 06/25/22 11:00:00 CDT, ABX Indication : Surgical Prophylaxi s ceFAZolin 2022-0 No 2 gm, Memoria 9-10 Route: l 00:00: IVPB, Oce[place] 00 [id number], Dosing Weight 81.818, kg, Start date: 06/24/22 19:00:00 CDT, Duration: 1 day, Stop date: 06/25/22 11:00:00 CDT, ABX Indication : Surgical Prophylaxi s heparin No Notes: Memoria 5000 9-09 porcine l units/mL 21:00: heparin Juan Jose n injectable 00 solution heparin No Notes: Memoria 5000 9-09 porcine l units/mL 21:00: heparin Juan Jose n injectable 00 solution heparin 0 No Notes: Memoria 5000 9-09 porcine l units/mL 21:00: heparin Juan Jose n injectable 00 solution heparin 2021-0 No Notes: Memoria 5000 9-09 porcine l units/mL 21:00: heparin Jaun Jose n injectable 00 solution heparin No Notes: Memoria 5000 9-09 porcine l units/mL 21:00: heparin Juan Jose n injectable 00 solution fentaNYL 0 No Route: IV, Mem oria (ANES) 06-24 Drug form: l 20:52: INJ, ONCE, Oceano Stop date: 06/24/22 15:52:00 CDT ondansetron No Route: IV, Memoria (ANES) 06-24 Drug form: l 20:52: INJ, ONCE, Jim Stop date: 06/24/22 15:52:00 CDT fentaNYL 2021-0 No Route: IV, Mem oria (ANES) 06-24 Drug form: l 20:52: INJ, ONCE, Oceano Stop date: 06/24/22 15:52:00 CDT ondansetron 2021-0 No Route: IV, Memoria (ANES) 06-24 Drug form: l 20:52: INJ, ONCE, Oceano Stop date: 06/24/22 15:52:00 CDT fentaNYL 2021-0 No Route: IV, Mem oria (ANES) 06-24 Drug form: l 20:52: INJ, ONCE, Oceano Stop date: 06/24/22 15:52:00 CDT ondansetron 2021-0 No Route: IV, Memoria (ANES) 06-24 Drug form: l 20:52: INJ, ONCE, Jim Stop date: 06/24/22 15:52:00 CDT fentaNYL 0 No Route: IV, Mem oria (ANES) 06-24 Drug form: l 20:52: INJ, ONCE, Stop date: 06/24/22 15:52:00 CDT ondansetron 0 No Route: IV, Memoria (ANES) 06-24 Drug form: l 20:52: INJ, ONCE, Stop date: 06/24/22 15:52:00 CDT fentaNYL 0 No Route: IV, Mem oria (ANES) 06-24 Drug form: l 20:52: INJ, ONCE, Stop date: 06/24/22 15:52:00 CDT ondansetron No Route: IV, Memoria (ANES) 06-24 Drug form: l 20:52: INJ, ONCE, Stop date: 06/24/22 15:52:00 CDT dexamethaso No Route: IV, Memoria ne (ANES) 06-24 Drug form: l 20:11: INJ, ONCE, Stop date: 06/24/22 15:11:00 CDT ketAMINE 0 No Route: IV, Mem oria (ANES) 06-24 Drug form: l 20:11: INJ, ONCE, Stop date: 06/24/22 15:11:00 CDT albuterol 0 No Route: Memori a (ANES) 06-24 INHALATION l 20:11: , Drug form: AERO/A, ONCE, Stop date: 06/24/22 15:11:00 CDT dexamethaso 0 No Route: IV, Memoria ne (ANES) 06-24 Drug form: l 20:11: INJ, ONCE, Stop date: 06/24/22 15:11:00 CDT ketAMINE 0 No Route: IV, Mem oria (ANES) 06-24 Drug form: l 20:11: INJ, ONCE, Stop date: 06/24/22 15:11:00 CDT albuterol 0 No Route: Memori a (ANES) 06-24 INHALATION l 20:11: , Drug form: AERO/A, ONCE, Stop date: 06/24/22 15:11:00 CDT dexamethaso 0 No Route: IV, Memoria ne (ANES) 06-24 Drug form: l 20:11: INJ, ONCE, Stop date: 06/24/22 15:11:00 CDT ketAMINE 0 No Route: IV, Mem oria (ANES) 06-24 Drug form: l 20:11: INJ, ONCE, Stop date: 06/24/22 15:11:00 CDT albuterol No Route: Memori a (ANES) 06-24 INHALATION l 20:11: , Drug form: AERO/A, ONCE, Stop date: 06/24/22 15:11:00 CDT dexamethaso 0 No Route: IV, Memoria ne (ANES) 06-24 Drug form: l 20:11: INJ, ONCE, Stop date: 06/24/22 15:11:00 CDT ketAMINE 0 No Route: IV, Mem oria (ANES) 06-24 Drug form: l 20:11: INJ, ONCE, Stop date: 06/24/22 15:11:00 CDT albuterol 0 No Route: Memori a (ANES) 06-24 INHALATION l 20:11: , Drug form: AERO/A, ONCE, Stop date: 06/24/22 15:11:00 CDT dexamethaso No Route: IV, Memoria ne (ANES) 06-24 Drug form: l 20:11: INJ, ONCE, Stop date: 06/24/22 15:11:00 CDT ketAMINE 0 No Route: IV, Mem oria (ANES) 06-24 Drug form: l 20:11: INJ, ONCE, Stop date: 06/24/22 15:11:00 CDT albuterol 0 No Route: Memori a (ANES) 06-24 INHALATION l 20:11: , Drug form: AERO/A, ONCE, Stop date: 06/24/22 15:11:00 CDT lidocaine 2022-0 No Route: IV, Me moria (ANES) 06-24 Drug form: l 20:05: INJ, ONCE, Stop date: 06/24/22 15:05:00 CDT propofol 2-0 No Route: IV, Mem oria (ANES) 06-24 Drug form: l 20:05: INJ, ONCE, Stop date: 06/24/22 15:05:00 CDT lidocaine 2-0 No Route: IV, Me moria (ANES) 06-24 Drug form: l 20:05: INJ, ONCE, Stop date: 06/24/22 15:05:00 CDT propofol 2-0 No Route: IV, Mem oria (ANES) 06-24 Drug form: l 20:05: INJ, ONCE, Stop date: 06/24/22 15:05:00 CDT lidocaine 2022-0 No Route: IV, Me moria (ANES) 06-24 Drug form: l 20:05: INJ, ONCE, Stop date: 06/24/22 15:05:00 CDT propofol 2022-0 No Route: IV, Mem oria (ANES) 06-24 Drug form: l 20:05: INJ, ONCE, Stop date: 06/24/22 15:05:00 CDT lidocaine 2-0 No Route: IV, Me moria (ANES) 06-24 Drug form: l 20:05: INJ, ONCE, Stop date: 06/24/22 15:05:00 CDT propofol 2022-0 No Route: IV, Mem oria (ANES) 06-24 Drug form: l 20:05: INJ, ONCE, Stop date: 06/24/22 15:05:00 CDT lidocaine 2-0 No Route: IV, Me moria (ANES) 06-24 Drug form: l 20:05: INJ, ONCE, Stop date: 06/24/22 15:05:00 CDT propofol 2-0 No Route: IV, Mem oria (ANES) 06-24 Drug form: l 20:05: INJ, ONCE, Stop date: 06/24/22 15:05:00 CDT rocuronium 2022-0 No Route: IV, Tina emoria (ANES) 06-24 Drug form: l 20:00: INJ, ONCE, Stop date: 06/24/22 15:00:00 CDT ceFAZolin 2022-0 No Route: IV, moria (ANES) 06-24 Drug form: l 20:00: INJ, ONCE, Stop date: 06/24/22 15:00:00 CDT rocuronium 2022-0 No Route: IV, M emoria (ANES) 06-24 Drug form: l 20:00: INJ, ONCE, Stop date: 06/24/22 15:00:00 CDT ceFAZolin 2022-0 No Route: IV, moria (ANES) 06-24 Drug form: l 20:00: INJ, ONCE, Stop date: 06/24/22 15:00:00 CDT rocuronium 2022-0 No Route: IV, Tina emoria (ANES) 06-24 Drug form: l 20:00: INJ, ONCE, Stop date: 06/24/22 15:00:00 CDT ceFAZolin 2022-0 No Route: IV, moria (ANES) 06-24 Drug form: l 20:00: INJ, ONCE, Stop date: 06/24/22 15:00:00 CDT rocuronium 2022-0 No Route: IV, Tina emoria (ANES) 06-24 Drug form: l 20:00: INJ, ONCE, Stop date: 06/24/22 15:00:00 CDT ceFAZolin 2022-0 No Route: IV, moria (ANES) 06-24 Drug form: l 20:00: INJ, ONCE, Stop date: 06/24/22 15:00:00 CDT rocuronium 2022-0 No Route: IV, M emoria (ANES) 06-24 Drug form: l 20:00: INJ, ONCE, Stop date: 06/24/22 15:00:00 CDT ceFAZolin 2022-0 No Route: IV, moria (ANES) 06-24 Drug form: l 20:00: INJ, ONCE, Stop date: 06/24/22 15:00:00 CDT ANES No Notes: Memoria ondansetron 06-24 (Same [...] hydrALAZINE 06-24 (Same as: l 19:35: Apresoline [place] ) Push over 5 minutes ANES No 10 mg, 2 Memoria labetalol 06-24 mL, Route: l 19:35: IVP, Drug form: INJ, Q5Min, Dosing Weight 81.818, kg, PRN Elevated BP, Start date: 06/24/22 14:35:00 CDT, Duration: 5 doses or times, Stop date: 06/25/22 0:00:00 CDT, 0 ANES No Notes: Max Memoria acetaminoph 06-24 acetaminop l en 19:35: hen 4000 [place] 00 mg/day (4 gm/day). (Same as: Tylenol Extra Strength) ANES No Notes: Memoria oxyCODONE 5 06-24 (Same as: l mg 19:35: Roxicodone [place] immediate 00 ) release tablet ANES No Notes: Memoria fentaNYL 06-24 (Same as: l 19:35: Sublimaze) Preservati ve free. ANES No Notes: Memoria HYDROmorpho 06-24 Same as: l ne 19:35: Dilaudid ANE No Notes: Memoria flumazenil 06-24 (Same as: l 19:35: Romazicon) ANES No Notes: Memoria naloxone 06-24 Same as l 19:35: Narcan [place] No Notes: SEE Memoria albuterol 06-24 RT [...] 06-24 acetaminop l en 19:35: hen 4000 00 mg/day (4 gm/day). (Same as: Tylenol Extra Strength) ANE No Notes: Memoria oxyCODONE 5 06-24 (Same as: l mg 19:35: Roxicodone immediate 00 ) release tablet ANES No Notes: Memoria fentaNYL 06-24 (Same as: l 19:35: Sublimaze) Preservati ve free. ANE No Notes: Memoria HYDROmorpho 06-24 Same as: l ne 19:35: Dilaudid No Notes: Memoria flumazenil 06-24 (Same as: l 19:35: Romazicon) ANES No Notes: Memoria naloxone 06-24 Same as l 19:35: Narcan [place] 00 ANES No Notes: SEE Memoria albuterol 06-24 RT l 0.083% 19:35: DOCUMENTAT Rashmi nn inhalation 00 ION (Same solution as: Proventil) ANES No Notes: Memoria ondansetron 06-24 (Same as: l 19:35: Zofran) [place] MEDICATION WASTE Product Size: 4 mg Product [...] 06-24 acetaminop l en 19:35: hen 4000 Jim 00 mg/day (4 gm/day). (Same as: Tylenol Extra Strength) ANES No Notes: Memoria oxyCODONE 5 06-24 (Same as: l mg 19:35: Roxicodone Jim immediate 00 ) release tablet ANES No Notes: Memoria fentaNYL 06-24 (Same as: l 19:35: Sublimaze) [place] 00 Preservati ve free. ANES No Notes: Memoria HYDROmorpho 06-24 Same as: l ne 19:35: Dilaudid [place] 00 ANES No Notes: Memoria flumazenil 06-24 (Same as: l 19:35: Romazicon) [place] 00 ANES No Notes: Memoria naloxone 06-24 Same as l 19:35: Narcan Jim ANES No Notes: SEE Memoria albuterol 9- RT l 0.083% 19:35: DOCUMENTAT Rashmi nn inhalation 00 ION (Same solution as: Proventil) ANES No Notes: Memoria hydrALAZINE 06-24 (Same as: l 19:35: Apresoline ) Push over 5 minutes ANES No 10 mg, 2 Memoria labetalol - mL, Route: l 19:35: IVP, Drug form: [...] 06-24 (Same as: l mg 19:35: Roxicodone immediate ) release tablet ANES No Notes: Memoria fentaNYL 06-24 (Same as: l 19:35: Sublimaze) Preservati ve free. ANES No Notes: Memoria HYDROmorpho 06-24 Same as: l ne 19:35: Dilaudid ANES No Notes: Memoria flumazenil - (Same as: l 19:35: Romazicon) ANES No Notes: Memoria naloxone - Same as l 19:35: Narcan ANES No Notes: SEE Memoria albuterol - RT l 0.083% 19:35: DOCUMENTAT Rashmi nn inhalation 00 ION (Same solution as: Proventil) ANES No Notes: Memoria ondansetron - (Same as: l 19:35: Zofran) MEDICATION WASTE Product Size: 4 mg Product Wasted: ___ mg ANES No Notes: Do Memoria promethazin 06-24 not give l e + Sodium 19:35: IV push. Her gomez Chloride 00 (Same as: 0.9% IV 50 Phenergan) mL Lactated No Route: IV, Mem oria Ringers [...] Memoria 06-24 (Same as: l 16:00: Exparel) Jim [...] 133 mg (10 mL) Exparel No Notes: [facility] 06-24 (Same as: l 16:00: Exparel) [place] 00 NOT FOR IV use Postoperat max [...] 133 mg (10 mL) Exparel No Notes: [facility]06-24 (Same as: l 16:00: Exparel) [place] 00 NOT FOR IV use Postoperat max [...] 133 mg (10 mL) Exparel No Notes: Memoria 06-24 (Same as: l 16:00: Exparel) Jim [...] 133 mg (10 mL) Exparel No Notes: Memoria 06-24 (Same as: l 16:00: Exparel) Jim [...] (10 mL) remove No Notes: Memoria patch 9- Remove l 15:27: patch 12 [place] 00 hours after applicatio n each day. remove No Notes: Memoria patch 9- Remove l 15:27: patch 12 Jim 00 hours after applicatio n each day. remove No Notes: Memoria patch 9- Remove l 15:27: patch 12 [place] 00 hours after applicatio n each day. remove No Notes: Memoria patch 9-09 Remove l 15:27: patch 12 [place] 00 hours after applicatio n each day. remove No Notes: Memoria patch 9-09 Remove l 15:27: patch 12 Jim 00 hours after applicatio n each day. Vitamin B12 No Notes: Chilango jeannette 9- (Same As: l 14:00: Vitamin Jim 00 B-12) Vitamin B12 No Notes: [place] jeannette 9- (Same As: l 14:00: Vitamin Jim 00 B-12) Vitamin B12 No Notes: [place] jeannette 9- (Same As: l 14:00: Vitamin Jim 00 B-12) Vitamin B12 No Notes: [place] jeannette 9- (Same As: l 14:00: Vitamin [place] 00 B-12) Vitamin B12 No Notes: [place] jeannette 9- (Same As: l 14:00: Vitamin Jim 00 B-12) remove No Notes: Memoria patch 9-09 Remove l 02:00: patch 12 Jim 00 hours after applicatio n each day. remove No Notes: Memoria patch 9-09 Remove l 02:00: patch 12 Jim 00 hours after applicatio n each day. remove No Notes: Memoria patch 9-09 Remove l 02:00: patch 12 [place] 00 hours after applicatio n each day. remove No Notes: Memoria patch 9-09 Remove l 02:00: patch 12 [place] 00 hours after applicatio n each day. remove No Notes: Memoria patch 9-09 Remove l 02:00: patch 12 [place] 00 hours after applicatio n each day. acetaminoph No Notes: Max Memoria en -08 acetaminop l 19:00: hen = [place] 00 4000mg/day (4 gm/day). (Same as: Tylenol) acetaminoph No Notes: Max Memoria en 9-08 acetaminop l 19:00: hen = Jim 00 4000mg/day (4 gm/day). (Same as: Tylenol) acetaminoph No Notes: Max Memoria en 9-08 acetaminop l 19:00: hen = Jim 00 4000mg/day (4 gm/day). (Same as: Tylenol) acetaminoph No Notes: Max Memoria en -08 acetaminop l 19:00: hen = [place] 00 4000mg/day (4 gm/day). (Same as: Tylenol) acetaminoph No Notes: Max Memoria en -08 acetaminop l 19:00: hen = [place] 00 4000mg/day (4 gm/day). (Same as: Tylenol) SMOG Enema No Notes: Memor ia 08 saline for l 16:20: irrigation [place] 00 (1L bottle) 100 mL, mineral oil 100 mL, glycerine 100 mL. Dispense (300 ml) in 1L NS bottle SMOG Enema No Notes: Memor ia 08 saline for l 16:20: irrigation Jim 00 (1L bottle) 100 mL, mineral oil 100 mL, glycerine 100 mL. Dispense (300 ml) in 1L NS bottle SMOG Enema No Notes: Memor ia -08 saline for l 16:20: irrigation Jim 00 (1L bottle) 100 mL, mineral oil 100 mL, glycerine 100 mL. Dispense (300 ml) in 1L NS bottle SMOG Enema No Notes: Memor ia -08 saline for l 16:20: irrigation Jim 00 (1L bottle) 100 mL, mineral oil 100 mL, glycerine 100 mL. Dispense (300 ml) in 1L NS bottle SMOG Enema No Notes: Memor ia -08 saline for l 16:20: irrigation [place] 00 (1L bottle) 100 mL, mineral oil 100 mL, glycerine 100 mL. Dispense (300 ml) in 1L NS bottle senna No Notes: Memoria - (Same as: l 14:00: Senokot) [place] 00 polyethylen No Notes: Chilango jeannette e glycol 06-23 Dissolve l 3350 14:00: in 8 oz of Jim 00 water or juice. (Same as: Miralax) senna No Notes: Memoria - (Same as: l 14:00: Senokot) Jim 00 polyethylen No Notes: [place] jeannette e glycol 9-08 Dissolve l 3350 14:00: in 8 oz of [place] 00 water or juice. (Same as: Miralax) senna No Notes: Memoria 9-08 (Same as: l 14:00: Senokot) Jim 00 polyethylen No Notes: [place] jeannette e glycol 9-08 Dissolve l 3350 14:00: in 8 oz of [place] 00 water or juice. (Same as: Miralax) senna No Notes: Memoria 9-08 (Same as: l 14:00: Senokot) Jim 00 polyethylen No Notes: [place] jeannette e glycol 9-08 Dissolve l 3350 14:00: in 8 oz of [place] 00 water or juice. (Same as: Miralax) senna No Notes: Memoria 9-08 (Same as: l 14:00: Senokot) [place] polyethylen No Notes: [place] jeannette e glycol 9-08 Dissolve l 3350 14:00: in 8 oz of Jim 00 water or juice. (Same as: Miralax) benzocaine No Notes: Memor ia topical 9-08 Non-Formul l 13:51: vicky Drug [place] 00 (Same as: Chlorasept ic) benzocaine No Notes: Memor ia topical 9-08 Non-Formul l 13:51: vicky Drug [place] 00 (Same as: Chlorasept ic) benzocaine No Notes: Memor ia topical 9-08 Non-Formul l 13:51: vciky Drug Jim 00 (Same as: Chlorasept ic) benzocaine No Notes: Memor ia topical 9-08 Non-Formul l 13:51: vicky Drug Jim 00 (Same as: Chlorasept ic) benzocaine No Notes: Memor ia topical 9-08 Non-Formul l 13:51: vicky Drug Jim 00 (Same as: Chlorasept ic) hydromorpho No Notes: [place] jeannette ne 9-08 Same as: l 13:34: Dilaudid naloxone No [...] Route: l topical 2% 13:34: TOP, QID, rmann cream Drug form: CRM, PRN as [...] jeannette 06-23 (Same as: l 13:34: Mylicon) Jim ocular No Notes: Memoria lubricant 9-08 (Same as: l solution 13:34: Aquasite) Herm rashaad 00 sodium No Notes: Memoria chloride 9-08 (Same as: l nasal 13:34: [place], Jim solution 00 Deep Sea Nasal [place]). Calmoseptin No Notes: [place] jeannette e topical 08 (Same as: l ointment 13:34: Calmosepti Her gomez 00 ne) cetirizine No Notes: Memor ia -08 (Same As: l 13:34: Zyrtec) [place] 00 Tessalon No Notes: Memoria Perles 08 (Same As: l 13:34: Tessalon [place] 00 Perles) "Do Not Crush" Blistex No Notes: Memoria topical 08 Same as: l ointment 13:34: Blistex Juan Jose n 00 Robitussin- No Notes: [place] jeannette DM 06-23 (dextromet l 13:34: horphan-gu [place] 00 aifenesin 10-100mg/5 ml 10 ml oral SOLN ud) (Same as: Robitussin DM) albuterol No Notes: SEE Me moria 0.083% 9-08 RT l inhalation 13:34: DOCUMENTAT H ermann solution 00 ION (Same as: Proventil) Eucerin No Notes: Memoria topical 08 (Same as: l cream 13:34: Eucerin) Jim 00 oxyCODONE No Notes: Memori a immediate -08 (Same as: l release 13:34: Roxicodone Herm rashaad 00 ) Reglan No Notes: Memoria 9-08 (Same as: l 13:34: Reglan) [place] 00 hydromorpho No Notes: [place] jeannette ne -08 Same as: l 13:34: Dilaudid Jim 00 naloxone No Notes: Memoria 9-08 Same as l 13:34: Narcan Jim 00 bisacodyl No Notes: Memori a -08 (Same As: l 13:34: Dulcolax, [place] 00 Bisco-Lax) ondansetron No Notes: Ch[place] jeannette 06-23 (Same as: l 13:34: Zofran) MEDICATION WASTE Product Size: 4 mg Product Wasted: ___ mg melatonin No Notes: Memori a 06-23 (Same as: l 13:34: Melatonin) Jim 00 Flonase No Notes: Memoria 0.05 mg/inh 06-23 (Same as: l nasal spray 13:34: Flonase) He rmann 00 diphenhydrA No 1 appl, Mem oria MINE 06-23 Route: l topical 2% 13:34: TOP, QID, rmann cream 00 Drug form: CRM, PRN [...] (Same as: l solution 13:34: Aquasite) Herm rashaad sodium No Notes: Memoria chloride 06-23 (Same as: l nasal 13:34: [place], [place] solution 00 Deep Sea Nasal [place]). Calmoseptin No Notes: [place] jeannette e topical 9-08 (Same as: l ointment 13:34: Calmosepti Her gomez 00 ne) cetirizine No Notes: Memor ia 9-08 (Same As: l 13:34: Zyrtec) [place] 00 Tessalon No Notes: Memoria Perles -08 (Same As: l 13:34: Tessalon [place] 00 Perles) "Do Not Crush" Blistex No Notes: Memoria topical -08 Same as: l ointment 13:34: Blistex Juan Jose n 00 Robitussin- No Notes: [place] jeannette DM 06-23 (dextromet l 13:34: horphan-gu [place] 00 aifenesin 10-100mg/5 ml 10 ml oral SOLN ud) (Same as: Robitussin DM) albuterol No Notes: SEE Me moria 0.083% 06-23 RT l inhalation 13:34: DOCUMENTAT H ermann solution 00 ION (Same as: Proventil) Eucerin No Notes: Memoria topical -08 (Same as: l cream 13:34: Eucerin) [place] oxyCODONE No Notes: Memori a immediate -08 (Same as: l release 13:34: Roxicodone Herm rashaad 00 ) Reglan No Notes: Memoria -08 (Same as: l 13:34: Reglan) [place] 00 hydromorpho No Notes: [place] jeannette ne -08 Same as: l 13:34: Dilaudid Jim 00 naloxone No Notes: Memoria 9-08 Same as l 13:34: Narcan Jim 00 bisacodyl No Notes: Memori a 9-08 (Same As: l 13:34: Dulcolax, Jim 00 Bisco-Lax) ondansetron No Notes: [place] jeannette -08 (Same as: l 13:34: Zofran) Jim 00 MEDICATION WASTE Product Size: 4 mg Product Wasted: ___ mg melatonin No Notes: Memori a -08 (Same as: l 13:34: Melatonin) Jim 00 Flonase No Notes: Memoria 0.05 mg/inh 06-23 [...] jeannette - (Same as: l 13:34: Mylicon) Jim ocular No Notes: Memoria lubricant -08 (Same as: l solution 13:34: Aquasite) Herm rashaad sodium No Notes: Memoria chloride -08 (Same as: l nasal 13:34: [place], Jim solution 00 Deep Sea Nasal [place]). Calmoseptin No Notes: Ch[place] jeannette e topical 06-23 (Same as: l ointment 13:34: Calmosepti Her gomez 00 ne) cetirizine No Notes: Memor ia - (Same As: l 13:34: Zyrtec) Jim Tessalon No Notes: Memoria Perles 9-08 (Same As: l 13:34: Tessalon [place] 00 Perles) "Do Not Crush" Blistex No Notes: Memoria topical 06-23 Same as: l ointment 13:34: Blistex Juan Jose n 00 Robitussin- No Notes: [place] jeannette DM 06-23 (dextromet l 13:34: horphan-gu [place] aifenesin 10-100mg/5 ml 10 ml oral SOLN [...] Memoria 06-23 (Same as: l 13:34: Reglan) [place] 00 hydromorpho No Notes: [place] jeannette ne 06-23 Same as: l 13:34: Dilaudid Jim 00 naloxone No Notes: Memoria 06-23 Same as l 13:34: Narcan [place] 00 bisacodyl No Notes: Memori a 06-23 (Same As: l 13:34: Dulcolax, [place] 00 Bisco-Lax) ondansetron No Notes: [place] jeannette 06-23 (Same as: l 13:34: Zofran) [place] 00 MEDICATION WASTE Product Size: 4 mg Product Wasted: ___ mg melatonin No Notes: Memori a 06-23 (Same as: l 13:34: Melatonin) [place] 00 Flonase No Notes: Memoria 0.05 mg/inh 06-23 [...] Memoria 06-23 (Same As: l 13:34: Tums) [place] 00 Calcium Carbonate 500 mg = 200 mg elemental calcium Dose = mg calcium carbonate ( mg elemental calcium) simethicone No Notes: [place] jeannette 06-23 (Same as: l 13:34: Mylicon) [place] 00 ocular No Notes: Memoria lubricant 06-23 (Same as: l solution 13:34: Aquasite) Herm rashaad 00 sodium No Notes: Memoria chloride 06-23 (Same as: l nasal 13:34: [place], [place] solution 00 Deep Sea Nasal [place]). Calmoseptin No Notes: [place] jeannette e topical 06-23 (Same as: l ointment 13:34: Calmosepti Her gomez 00 ne) cetirizine No Notes: Memor ia -08 (Same As: l 13:34: Zyrtec) [place] 00 Tessalon No Notes: Memoria Perles - (Same As: l 13:34: Tessalon [place] 00 Perles) "Do Not Crush" Blistex No Notes: Memoria topical 06-23 Same as: l ointment 13:34: Blistex Juan Jose n 00 Robitussin- No Notes: [place] jeannette DM 06-23 (dextromet l 13:34: horphan-gu aifenesin 10-100mg/5 ml 10 ml oral SOLN ud) (Same as: Robitussin DM) albuterol No Notes: SEE Me moria 0.083% 06-23 RT l inhalation 13:34: DOCUMENTAT H ermann solution 00 ION (Same as: Proventil) Eucerin No Notes: Memoria topical 06-23 (Same as: l cream 13:34: Eucerin) [place] 00 oxyCODONE No Notes: Memori a immediate 06-23 (Same as: l release 13:34: Roxicodone Herm rashaad ) Reglan No Notes: Memoria 06-23 (Same as: l 13:34: Reglan) hydromorpho No Notes: [place] jeannette ne 06-23 Same as: l 13:34: Dilaudid naloxone No Notes: Memoria 06-23 Same as l 13:34: Narcan bisacodyl No Notes: Memori a 06-23 (Same As: l 13:34: Dulcolax, Jim 00 Bisco-Lax) ondansetron No Notes: Ch[place]ango jeannette 06-23 (Same as: l 13:34: Zofran) MEDICATION WASTE Product Size: 4 mg Product Wasted: ___ mg melatonin No Notes: Memori a 06-23 (Same as: l 13:34: Melatonin) Jim 00 Flonase No Notes: Memoria 0.05 mg/inh 06-23 [...] 07/23/22 8:33:00 CDT Tums No Notes: Memoria - (Same As: l 13:34: Tums) Jim 00 Calcium Carbonate 500 mg = 200 mg elemental calcium Dose = mg calcium carbonate ( mg elemental calcium) simethicone No Notes: [place] jeannette 06-23 (Same as: l 13:34: Mylicon) [place] 00 ocular No Notes: Memoria lubricant 06-23 (Same as: l solution 13:34: Aquasite) Herm rashaad 00 sodium No Notes: Memoria chloride 06-23 (Same as: l nasal 13:34: [place], [place] solution 00 Deep Sea Nasal [place]). Calmoseptin No Notes: [place] jeannette e topical 06-23 (Same as: l ointment 13:34: Calmosepti Her gomez 00 ne) cetirizine No Notes: Memor ia 06-23 (Same As: l 13:34: Zyrtec) [place] 00 Tessalon No Notes: Memoria Perles 06-23 [...] 9-08 (Same as: l cream 13:34: Eucerin) Jim 00 oxyCODONE No Notes: Memori a immediate 9-08 (Same as: l release 13:34: Roxicodone Herm rashaad 00 ) Reglan No Notes: Memoria 9-08 (Same as: l 13:34: Reglan) Jim 00 lidocaine No Notes: Memori a 4% topical 9-08 Patch is l film 13:32: applied to [place] 00 intact skin to cover painful area [...] Patch is l film 13:32: applied to [place] 00 intact skin to cover painful area [...] lidocaine No Notes: Memori a 4% topical 06-23 Patch is l film 13:32: applied to [place] 00 intact skin to cover painful area for up to 12 hours in a 24-hour period (12 hours on and 12 hours off). Please indicate the location of applicatio n site. Site 1: Remove old patch before applicatio n of new patch. (Same as Aspercreme Lidocaine Patch) oxyCODONE 5 No Notes: Chilango jeannette mg/5 mL 06-22 (Same as: l oral 22:27: 'Roxicodon Jim solution 00 e) oxyCODONE No Notes: Memori a immediate 06-22 (Same as: l release 22:27: Roxicodone Herm rashaad 00 ) oxyCODONE 5 No Notes: Ch[place] jeannette mg/5 mL 06-22 (Same as: l oral 22:27: 'Roxicodon [place] solution 00 e) oxyCODONE No Notes: Memori a immediate 06-22 (Same as: l release 22:27: Roxicodone Herm rashaad 00 ) oxyCODONE 5 No Notes: [place] jeannette mg/5 mL - (Same as: l oral 22:27: 'Roxicodon Jim solution 00 e) oxyCODONE No Notes: Memori a immediate 06-22 (Same as: l release 22:27: Roxicodone Herm rashaad 00 ) oxyCODONE 5 No Notes: [place] jeannette mg/5 mL - (Same as: l oral 22:27: 'Roxicodon [place] solution 00 e) oxyCODONE No Notes: Memori a immediate - (Same as: l release 22:27: Roxicodone Herm rashaad 00 ) oxyCODONE 5 No Notes: [place] jeannette mg/5 mL - (Same as: l oral 22:27: 'Roxicodon Jim solution 00 e) oxyCODONE No Notes: Memori a immediate - (Same as: l release 22:27: Roxicodone Herm rashaad 00 ) montelukast No Notes: [place] jeannette 9-07 (Same l 02:00: as:Singula Jim 00 ir) montelukast No Notes: [place] jeannette 9-07 (Same l 02:00: as:Singula Jim 00 ir) montelukast No Notes: [place] jeannette 9-07 (Same l 02:00: as:Singula [place] 00 ir) montelukast No Notes: [place] jeannette 9-07 (Same l 02:00: as:Singula [place] 00 ir) montelukast No Notes: [place] jeannette 9-07 (Same l 02:00: as:Singula Jim 00 ir) tamsulosin No Notes: Memor ia 9-06 (Same As: l 23:36: Flomax) [place] 00 "Do Not Crush" tamsulosin No Notes: Memor ia 9-06 (Same As: l 23:36: Flomax) [place] 00 "Do Not Crush" tamsulosin 0 No Notes: Memor ia 9-06 (Same As: l 23:36: Flomax) Jim 00 "Do Not Crush" tamsulosin 0 No Notes: Memor ia 9-06 (Same As: l 23:36: Flomax) Jim 00 "Do Not Crush" tamsulosin 0 No Notes: Memor ia 9-06 (Same As: l 23:36: Flomax) [place] 00 "Do Not Crush" Lovenox No Notes: Memoria 9-06 (Same as: l 21:00: Lovenox) Jim 00 Lovenox 0 No Notes: Memoria 9-06 (Same as: l 21:00: Lovenox) [place] 00 Lovenox 0 No Notes: Memoria 9-06 (Same as: l 21:00: Lovenox) [place] 00 Lovenox 2021-0 No Notes: Memoria 9-06 (Same as: l 21:00: Lovenox) [place] 00 Lovenox 0 No Notes: Memoria 9-06 (Same as: l 21:00: Lovenox) Jim 00 gabapentin No Notes: Memor ia 100 mg oral 06-21 (Same as: l capsule 19:00: Neurontin) Herm rashaad gabapentin No Notes: Memor ia 100 mg oral 06-21 (Same as: l capsule 19:00: Neurontin) Herm rashaad gabapentin No Notes: Memor ia 100 mg oral 06-21 (Same as: l capsule 19:00: Neurontin) Herm rashaad gabapentin No Notes: Memor ia 100 mg oral 06-21 (Same as: l capsule 19:00: Neurontin) Herm rashaad gabapentin No Notes: Memor ia 100 mg oral 06-21 (Same as: l capsule 19:00: Neurontin) Herm rashaad Lovenox 2021-0 No 40 mg, Memoria 06-21 Route: l 17:00: SUB-Q, Jim Drug form: INJ, [id number], Dosing Weight 81.818, kg, Start date: 06/21/22 12:00:00 CDT, Duration: 30 day, Stop date: 07/21/22 0:00:00 CDT Lovenox 2022-0 No 40 mg, Memoria 06-21 Route: l 17:00: SUB-Q, Jim Drug form: INJ, [id number], Dosing Weight 81.818, kg, Start date: 06/21/22 12:00:00 CDT, Duration: 30 day, Stop date: 07/21/22 0:00:00 CDT Lovenox 2022-0 No 40 mg, Memoria 06-21 Route: l 17:00: SUB-Q, Jim Drug form: INJ, [id number], Dosing Weight 81.818, kg, Start date: 06/21/22 12:00:00 CDT, Duration: 30 day, Stop date: 07/21/22 0:00:00 CDT Lovenox 2022-0 No 40 mg, Memoria 06-21 Route: l 17:00: SUB-Q, [place] Drug form: INJ, [id number], Dosing Weight 81.818, kg, Start date: 06/21/22 12:00:00 CDT, Duration: 30 day, Stop date: 07/21/22 0:00:00 CDT Lovenox No 40 mg, Memoria 06-21 Route: l 17:00: SUB-Q, Jim 00 Drug form: INJ, [id number], Dosing Weight 81.818, kg, Start date: 06/21/22 12:00:00 CDT, Duration: 30 day, Stop date: 07/21/22 0:00:00 CDT ferrous No Notes: Memoria sulfate 9-06 Give with l 14:04: food. "Do Jim 00 Not Crush" ferrous 0 No Notes: Memoria sulfate 9- Give with l 14:04: food. "Do [place] 00 Not Crush" ferrous 0 No Notes: Memoria sulfate 9-06 Give with l 14:04: food. "Do Jim 00 Not Crush" ferrous 0 No Notes: Memoria sulfate 9- Give with l 14:04: food. "Do [place] 00 Not Crush" ferrous 0 No Notes: Memoria sulfate 9- Give with l 14:04: food. "Do Jim 00 Not Crush" finasteride No Notes: [place] jeannette 9-06 (Same as: l 14:00: Proscar) [place] 00 "Do Not Crush" Women of childbeari [...] release crush. finasteride No Notes: [place] jeannette 9- (Same as: l 14:00: Proscar) [place] 00 "Do Not Crush" Women of childbeari ng age should not touch or handle broken tablets [facility] 3:Reproduc tive risk Hazardous Drug -- Refer to safe handling procedure PPE Matrix Metoprolol No Notes: Memor ia Succinate - (Same as: l ER 50 mg 14:00: Toprol XL) Her gomez oral 00 May split tablet, tab, but extended do not release crush. finasteride No Notes: [place] jeannette 06-21 (Same as: l 14:00: Proscar) [place] 00 "Do Not Crush" Women of childbeari [...] jeannette 06-21 (Same as: l 14:00: Proscar) [place] 00 "Do Not Crush" Women of childbeari [...] release crush. remove No Notes: Memoria patch 9- Remove l 12:00: patch 12 [place] 00 hours after applicatio n each day. remove No Notes: Memoria patch 9-06 Remove l 12:00: patch 12 Jim 00 hours after applicatio n each day. remove No Notes: Memoria patch 9- Remove l 12:00: patch 12 [place] 00 hours after applicatio n each day. remove No Notes: Memoria patch 9-06 Remove l 12:00: patch 12 Jim 00 hours after applicatio n each day. remove No Notes: Memoria patch 9-06 Remove l 12:00: patch 12 [place] 00 hours after applicatio n each day. lidocaine No Notes: Memori a 4% topical 9-06 Patch is l film 00:00: applied to [place] 00 intact skin to cover painful area for up to 12 hours in a 24-hour period (12 hours on and 12 hours off). Please indicate the location of applicatio n site. Site 1: Remove old patch before applicatio n of new patch. (Same as Aspercreme Lidocaine Patch) lidocaine No Notes: Memori a 4% topical 9-06 Patch is l film 00:00: applied to [place] 00 intact skin to cover painful area for up to 12 hours in a 24-hour period (12 hours on and 12 hours off). Please indicate the location of applicatio n site. Site 1: Remove old patch before applicatio n of new patch. (Same as Aspercreme Lidocaine Patch) lidocaine No Notes: Memori a 4% topical 9-06 Patch is l film 00:00: applied to [place] 00 intact skin to cover painful area [...] Patch is l film 00:00: applied to [place] 00 intact skin to cover painful area for up to 12 hours in a 24-hour period (12 hours on and 12 hours off). Please indicate the location of applicatio n site. Site 1: Remove old patch before applicatio n of new patch. (Same as Aspercreme Lidocaine Patch) oxyCODONE 5 No Notes: [place] jeannette mg/5 mL 9-05 (Same as: l oral 23:11: 'Roxicodon Jim solution 00 e) naloxone No Notes: Memoria 9-05 Same as l 23:11: Narcan [place] 00 oxyCODONE 5 No Notes: [place] jeannette mg/5 mL 9-05 (Same as: l oral 23:11: 'Roxicodon [place] solution 00 e) naloxone No Notes: Memoria 9-05 Same as l 23:11: Narcan Jim 00 oxyCODONE 5 No Notes: [place] jeannette mg/5 mL 9-05 (Same as: l oral 23:11: 'Roxicodon [place] solution 00 e) naloxone No Notes: Memoria 9-05 Same as l 23:11: Narcan [place] 00 oxyCODONE 5 No Notes: [place] jeannette mg/5 mL 9-05 (Same as: l oral 23:11: 'Roxicodon [place] solution 00 e) naloxone No Notes: Memoria 9-05 Same as l 23:11: Narcan [place] 00 oxyCODONE 5 No Notes: [place] jeannette mg/5 mL 9-05 (Same as: l oral 23:11: 'Roxicodon Jim solution 00 e) naloxone No Notes: Memoria 9-05 Same as l 23:11: Narcan Jim 00 docusate-se No Notes: [place] jeannette nna 50 9-05 (Same as l mg-8.6 mg 22:00: Senokot-S) He rmann oral tablet 00 Equiv. to [place] e. MiraLax No Notes: Memoria 9-05 Dissolve l 22:00: in 8 oz of [place] 00 water or juice. (Same as: Miralax) [...] Dissolve l 22:00: in 8 oz of [place] 00 water or juice. (Same as: Miralax) docusate-se No Notes: [place] jeannette nna 50 9-05 (Same as l mg-8.6 mg 22:00: Senokot-S) He rmann oral tablet 00 Equiv. to [place] e. MiraLax No Notes: Memoria 9-05 Dissolve l 22:00: in 8 oz of [place] 00 water or juice. (Same as: Miralax) docusate-se No Notes: [place] jeannette nna 50 9-05 (Same as l mg-8.6 mg 22:00: Senokot-S) He rmann oral tablet 00 Equiv. to [place] e. MiraLax No Notes: Memoria 9-05 Dissolve l 22:00: in 8 oz of [place] 00 water or juice. (Same as: Miralax) [...] BY l ER 50 mg 21:42: MOUTH [place] oral 00 EVERY tablet, MORNING extended release Metoprolol No TAKE 1 Memor ia Succinate 9-05 TABLET BY l ER 50 mg 21:42: MOUTH Jim oral 00 EVERY tablet, MORNING extended release pantoprazol No Notes: [place] jeannette e 9-05 Tablet l 21:30: should not [place] 00 be chewed or crushed. (Same as: Protonix) pantoprazol No Notes: [place] jeannette e 9-05 Tablet l 21:30: should not [place] 00 be chewed or crushed. (Same as: Protonix) pantoprazol No Notes: [place] jeannette e 9-05 Tablet l 21:30: should not Jim 00 be chewed or crushed. (Same as: Protonix) pantoprazol No Notes: [place] jeannette e 9-05 Tablet l 21:30: should not Jim 00 be chewed or crushed. (Same as: Protonix) pantoprazol No Notes: [place] jeannette e 9-05 Tablet l 21:30: should not [place] 00 be chewed or crushed. (Same as: Protonix) Pulmicort No Notes: Memori a Respules 9-05 (Same As: l 17:28: Pulmicort) [place] 00 Pulmicort No Notes: Memori a Respules 9-05 (Same As: l 17:28: Pulmicort) Jim 00 Pulmicort No Notes: Memori a Respules 9-05 (Same As: l 17:28: Pulmicort) [place] Pulmicort No Notes: Memori a Respules 9-05 (Same As: l 17:28: Pulmicort) [place] 00 Pulmicort No Notes: Memori a Respules 9-05 (Same As: l 17:28: Pulmicort) Jim metoprolol No Notes: Memor ia tartrate 9-05 (Same as: l 17:23: Lopressor) [place] metoprolol No Notes: Memor ia tartrate 9-05 (Same as: l 17:23: Lopressor) Jim metoprolol No Notes: Memor ia tartrate 9-05 [...] day, Stop date: 07/20/22 8:00:00 CDT Symbicort 0 No 2 Memoria 160/4.5 9-05 inhalation l inhalation 17:20: , Route: Her gomez aerosol 00 INHALATION with , Drug adapter Form: AERO/A, Dosing Weight 81.818, kg, RBID, Start date: 06/20/22 12:20:00 CDT, Duration: 30 day, Stop date: 07/20/22 8:00:00 CDT Symbicort 2021-0 No 2 Memoria 160/4.5 9-05 inhalation l inhalation 17:20: , Route: Her gomez aerosol 00 INHALATION with , Drug adapter Form: AERO/A, Dosing Weight 81.818, kg, RBID, Start date: 06/20/22 12:20:00 CDT, Duration: 30 day, Stop date: 07/20/22 8:00:00 CDT aspirin No Notes: Do Memor ia 9-05 not crush l 14:00: or chew. [place] 00 (Same As: Ecotrin) aspirin No Notes: Do Memor ia 9-05 not crush l 14:00: or chew. [place] 00 (Same As: Ecotrin) aspirin No Notes: Do Memor ia 9-05 not crush l 14:00: or chew. Jim 00 (Same As: Ecotrin) aspirin No Notes: Do Memor ia 9-05 not crush l 14:00: or chew. [place] 00 (Same As: Ecotrin) aspirin No Notes: Do Memor ia 9-05 not crush l 14:00: or chew. [place] 00 (Same As: Ecotrin) liothyronin No Notes: [place] jeannette e 9-05 (Same as: l 11:30: Cytomel) levothyroxi No Notes: [place] jeannette ne 9-05 Take 1 l 11:30: hour [place] 00 before or 2 hours after meal; Enteral feeds may interefere with the absorption of this medication . (Same as:Levothr oid, Synthroid) liothyronin No Notes: [place] jeannette e 9-05 (Same as: l 11:30: Cytomel) Jim 00 levothyroxi No Notes: [place] jeannette ne 9-05 Take 1 l 11:30: hour Jim 00 before or 2 hours after meal; Enteral feeds may interefere with the absorption of this medication . (Same as:Levothr oid, Synthroid) liothyronin No Notes: [place] jeannette e 9-05 (Same as: l 11:30: Cytomel) [place] levothyroxi No Notes: [place] jeannette ne 9-05 Take 1 l 11:30: hour [place] 00 before or 2 hours after meal; Enteral feeds may interefere with the absorption of this medication . (Same as:Levothr oid, Synthroid) liothyronin No Notes: [place] jeannette e 9-05 (Same as: l 11:30: Cytomel) [place] levothyroxi No Notes: [place] jeannette ne 9-05 Take 1 l 11:30: hour [place] 00 before or 2 hours after meal; Enteral feeds may interefere with the absorption of this medication . (Same as:Levothr oid, Synthroid) liothyronin No Notes: [place] jeannette e 9-05 (Same as: l 11:30: Cytomel) [place] levothyroxi No Notes: [place] jeannette ne 9-05 Take 1 l 11:30: hour [place] 00 before or 2 hours after meal; [...] Juan Jose n injectable 00 solution heparin 0 No 5,000 Memoria 9-04 unit, l 21:00: Route: Jim 00 SUB-Q, Q8H, Dosing Weight 81.818, kg, Start date: 06/19/22 16:00:00 CDT, Duration: 30 day, Stop date: 07/19/22 8:00:00 CDT heparin 2021-0 No Notes: Memoria 5000 9-04 porcine l units/mL 21:00: heparin Juan Jose n injectable 00 solution heparin 0 No 5,000 Memoria 9-04 unit, l 21:00: Route: [place] 00 SUB-Q, Q8H, Dosing Weight 81.818, kg, Start date: 06/19/22 16:00:00 CDT, Duration: 30 day, Stop date: 07/19/22 8:00:00 CDT heparin 2022-0 No Notes: Memoria 5000 9-04 porcine l units/mL 21:00: heparin Juan Jose n injectable 00 solution heparin 2022-0 No 5,000 Memoria 9-04 unit, l 21:00: Route: Jim 00 SUB-Q, Q8H, Dosing Weight 81.818, kg, Start date: 06/19/22 16:00:00 CDT, Duration: 30 day, Stop date: 07/19/22 8:00:00 CDT heparin 2022-0 No Notes: Memoria 5000 9-04 porcine l units/mL 21:00: heparin Juan Jose n injectable 00 solution heparin 2022-0 No 5,000 Memoria 9-04 unit, l 21:00: Route: [place] 00 SUB-Q, Q8H, Dosing Weight 81.818, kg, [...] 2022-0 No 500 mL, Memori a Ringers -04 500 ml/hr, l (Bolus) IV 20:16: Infuse [...] As: l 14:00: Vitamin B1) folic acid No 1 mg, Memori a 06-19 Route: [...] a 06-19 Route: PO, l 14:00: Daily, [place] 00 Dosing Weight 81.818, kg, Start date: 06/19/22 9:00:00 CDT, Duration: 5 day, Stop date: 06/23/22 9:00:00 CDT Vitamin B1 2022-0 No Notes: Memor ia - (Same As: l 14:00: Vitamin Jim 00 B1) Lactated 2022-0 No 500 mL, Memori a Ringers 9-04 Rate: 1000 l Injection 02:43: ml/hr, Juan Jose n IV 00 Infuse over: 30 minutes, Route: IV, Total Volume: 500, Start date: 06/18/22 21:43:00 CDT, Stop date: 06/18/22 21:43:00 CDT, 0 Lactated 2022-0 No 500 mL, Memori a Ringers 9-04 Rate: 1000 l Injection 02:43: ml/hr, Juan Jose n IV 00 Infuse over: 30 minutes, Route: IV, Total Volume: 500, Start date: 06/18/22 21:43:00 CDT, Stop date: 06/18/22 21:43:00 CDT, 0 Lactated 2-0 No 500 mL, Memori a Ringers 9-04 Rate: 1000 l Injection 02:43: ml/hr, Juan Jose n IV 00 Infuse over: 30 minutes, Route: IV, Total Volume: 500, Start date: 06/18/22 21:43:00 CDT, Stop date: 06/18/22 21:43:00 CDT, 0 Lactated 2022-0 No 500 mL, Memori a Ringers 9-04 Rate: 1000 l Injection 02:43: ml/hr, Juan Jose n IV 00 Infuse over: 30 minutes, Route: IV, Total Volume: 500, Start date: 06/18/22 21:43:00 CDT, Stop date: 06/18/22 21:43:00 CDT, 0 Lactated 2022-0 No 500 mL, Memori a Ringers 9-04 Rate: 1000 l Injection 02:43: ml/hr, Juan Jose n IV 00 Infuse over: 30 minutes, Route: IV, Total Volume: 500, Start date: 06/18/22 21:43:00 CDT, Stop date: 06/18/22 21:43:00 CDT, 0 LR IV 500 2-0 No 500 mL, Memor ia mL 06-19 Rate: 999 l 02:35: ml/hr, Jim 00 Infuse over: 0.5 hr, Route: IV, Dosing Weight 81.818 kg, Total Volume: 500, Start date: 06/18/22 21:35:00 CDT, Duration: 30 day, Stop date: 07/18/22 21:34:00 CDT, BSA: 2.06 m2 LR IV 500 2021-0 No 500 mL, Memor ia mL 9- Rate: 999 l 02:35: ml/hr, [place] 00 Infuse over: 0.5 hr, Route: IV, Dosing Weight 81.818 kg, Total Volume: 500, Start date: 06/18/22 21:35:00 CDT, Duration: 30 day, Stop date: 07/18/22 21:34:00 CDT, BSA: 2.06 m2 LR IV 500 2021-0 No 500 mL, Memor ia mL 9 Rate: 999 l 02:35: ml/hr, [place] 00 Infuse over: 0.5 hr, Route: IV, Dosing Weight 81.818 kg, Total Volume: 500, Start date: 06/18/22 21:35:00 CDT, Duration: 30 day, Stop date: 07/18/22 21:34:00 CDT, BSA: 2.06 m2 LR IV 500 2021-0 No 500 mL, Memor ia mL 9 Rate: 999 l 02:35: ml/hr, [place] 00 Infuse over: 0.5 hr, Route: IV, Dosing Weight 81.818 kg, Total Volume: 500, Start date: 06/18/22 21:35:00 CDT, Duration: 30 day, Stop date: 07/18/22 21:34:00 CDT, BSA: 2.06 m2 LR IV 500 2021-0 No 500 mL, Memor ia mL 9-04 Rate: 999 l 02:35: ml/hr, Jim 00 Infuse over: 0.5 hr, Route: IV, Dosing Weight 81.818 kg, Total Volume: 500, Start date: 06/18/22 21:35:00 CDT, Duration: 30 day, Stop date: 07/18/22 21:34:00 CDT, BSA: 2.06 m2 methylPREDN 2021-0 No Notes: [place] jeannette ISolone 06-18 (Same [...] Memoria 06-18 (Same as: l 22:42: Benadryl) Lactated No 1,000 mL, [place] jeannette Ringers IV 06-18 Rate: 60 l 1,000 mL 21:47: ml/hr, Infuse over: 16.7 hr, Route: IV, Dosing [...] 16:46:00 CDT, BSA: 2.06 m2, 0 Lactated 2021-0 No 1,000 mL, [place] jeannette Ringers IV 06-18 Rate: 60 l 1,000 mL 21:47: ml/hr, Jim 00 Infuse over: 16.7 hr, Route: IV, Dosing Weight 81.818 kg, Total Volume: 1,000, Start date: 06/18/22 16:47:00 CDT, Duration: 30 day, Stop date: 07/18/22 16:46:00 CDT, BSA: 2.06 m2, 0 Lactated 2021-0 No 1,000 mL, [place] jeannette Ringers IV 06-18 Rate: 60 l 1,000 mL 21:47: ml/hr, [place] 00 Infuse over: 16.7 hr, Route: IV, Dosing Weight 81.818 kg, Total Volume: 1,000, Start date: 06/18/22 16:47:00 CDT, Duration: 30 day, Stop date: 07/18/22 16:46:00 CDT, BSA: 2.06 m2, 0 Lactated 2021-0 No 1,000 mL, [place] jeannette Ringers IV 06-18 Rate: 60 l 1,000 mL 21:47: ml/hr, [place] Infuse over: 16.7 hr, Route: IV, Dosing Weight 81.818 kg, Total Volume: 1,000, Start date: 06/18/22 16:47:00 CDT, Duration: 30 day, Stop date: 07/18/22 16:46:00 CDT, BSA: 2.06 m2, 0 morphine No Notes: Memoria Sulfate - (Same l 20:04: as:MORPhin Jim 00 e Sulfate) morphine No Notes: Memoria Sulfate - (Same l 20:04: as:MORPhin [place] 00 e Sulfate) morphine No Notes: Memoria Sulfate 9-03 (Same l 20:04: as:MORPhin [place] 00 e Sulfate) morphine No Notes: Memoria Sulfate 9-03 (Same l 20:04: as:MORPhin [place] 00 e Sulfate) morphine No Notes: Memoria Sulfate 9- (Same l 20:04: as:MORPhin Jim 00 e Sulfate) morphine No Notes: Memoria Sulfate 9- (Same l 20:03: as:MORPhin [place] 00 e Sulfate) morphine No Notes: Memoria Sulfate 9- (Same l 20:03: as:MORPhin [place] 00 e Sulfate) morphine No Notes: Memoria Sulfate 9- (Same l 20:03: as:MORPhin Jim 00 e Sulfate) morphine No Notes: Memoria Sulfate 9- (Same l 20:03: as:MORPhin [place] 00 e Sulfate) morphine No Notes: Memoria Sulfate 9- (Same l 20:03: as:MORPhin Jim 00 e Sulfate) acetaminoph No Notes: Max Memoria en - acetaminop l 16:39: hen = [place] 00 4000mg/day (4 gm/day). (Same as: Tylenol) gabapentin No Notes: Memor ia - (Same as: l 16:39: Neurontin) [place] 00 oxyCODONE No Notes: Memori a immediate 06-18 (Same as: l release 16:39: Roxicodone Herm rashaad 00 ) acetaminoph No Notes: Max Memoria en - acetaminop l 16:39: hen = [place] 00 4000mg/day (4 gm/day). (Same as: Tylenol) gabapentin No Notes: Memor ia - (Same as: l 16:39: Neurontin) [place] 00 oxyCODONE No Notes: Memori a immediate - (Same as: l release 16:39: Roxicodone Herm rashaad 00 ) acetaminoph No Notes: Max Memoria en 9- acetaminop l 16:39: hen = [place] 00 4000mg/day (4 gm/day). (Same as: Tylenol) gabapentin No Notes: Memor ia 06-18 (Same as: l 16:39: Neurontin) Jim 00 oxyCODONE No Notes: Memori a immediate 06-18 (Same as: l release 16:39: Roxicodone Herm rashaad ) acetaminoph No Notes: Max Memoria en 06-18 acetaminop l 16:39: hen = [place] 00 4000mg/day (4 gm/day). (Same as: Tylenol) gabapentin No Notes: Memor ia 06-18 (Same as: l 16:39: Neurontin) [place] 00 oxyCODONE No Notes: Memori a immediate 06-18 (Same as: l release 16:39: Roxicodone Herm rashaad ) acetaminoph No Notes: Max Memoria en 06-18 acetaminop l 16:39: hen = [place] 00 4000mg/day (4 gm/day). (Same as: Tylenol) gabapentin No Notes: Memor ia 06-18 (Same as: l 16:39: Neurontin) oxyCODONE No Notes: Memori a immediate 06-18 (Same as: l release 16:39: Roxicodone Herm rashaad ) DuoNeb No Notes: Memoria inhalation 06-18 (Same as: l solution 15:30: Duoneb) Juan Jose n DuoNeb No Notes: Memoria inhalation - (Same as: l solution 15:30: Duoneb) Juan Jose n DuoNeb No Notes: Memoria inhalation - (Same as: l solution 15:30: Duoneb) Juan Jose n DuoNeb No Notes: Memoria inhalation - (Same as: l solution 15:30: Duoneb) Juan Jose n 00 DuoNeb No Notes: Memoria inhalation - (Same as: l solution 15:30: Duoneb) Juan Jose n morphine No 4 mg, Memoria Sulfate 06-18 Route: l 14:16: IVP, ONCE, Dosing Weight 79.119, kg, Priority: STAT, Start date: 06/18/22 9:16:00 CDT, Stop date: 06/18/22 9:16:00 CDT morphine 2022-0 No 4 mg, Memoria Sulfate 06-18 Route: l 14:16: IVP, ONCE, Dosing Weight 79.119, kg, Priority: STAT, Start date: 06/18/22 9:16:00 CDT, Stop date: 06/18/22 9:16:00 CDT morphine 2022-0 No 4 mg, Memoria Sulfate 06-18 Route: l 14:16: IVP, ONCE, Dosing Weight 79.119, kg, Priority: STAT, Start date: 06/18/22 9:16:00 CDT, Stop date: 06/18/22 9:16:00 CDT morphine 2022-0 No 4 mg, Memoria Sulfate 06-18 Route: l 14:16: IVP, ONCE, Dosing Weight 79.119, kg, Priority: STAT, Start date: 06/18/22 9:16:00 CDT, Stop date: 06/18/22 9:16:00 CDT morphine 2-0 No 4 mg, Memoria Sulfate 06-18 Route: l 14:16: IVP, ONCE, Dosing Weight 79.119, kg, Priority: STAT, Start date: 06/18/22 9:16:00 CDT, Stop date: 06/18/22 9:16:00 CDT folic acid 2021-0 No Notes: Memor ia 06-18 (Same as: l 14:00: Folvite) thiamine 2-0 No 500 mg, Memori a 06-18 Route: PO, l 14:00: Daily, Dosing Weight 79.119, kg, Start date: 06/18/22 9:00:00 CDT, Duration: 5 day, Stop date: 06/22/22 9:00:00 CDT folic acid 2-0 No Notes: Memor ia 06-18 (Same as: [...] be infused by Radiology Staff ONLY" Omnipaque 2022-0 No 100 mL, Memor ia 350 mg/mL 06-18 Route: l 13:12: IVP, Drug Form: SOLN, Dosing Weight 79.119, kg, ONCALL, STAT, Start date: 06/18/22 8:12:00 CDT, Duration: 1 doses or times, Dose = 2.2ml/kg, Max dose = 150ml -- "To be infused by Radiology Staff ONLY" Omnipaque 2-0 No 100 mL, Memor ia 350 mg/mL 06-18 Route: l 13:12: IVP, Drug [place] Form: SOLN, Dosing Weight 79.119, kg, ONCALL, STAT, Start date: 06/18/22 8:12:00 CDT, Duration: 1 doses or times, Dose = 2.2ml/kg, Max dose = 150ml -- "To be infused by Radiology Staff ONLY" Omnipaque 2-0 No 100 mL, Memor ia 350 mg/mL 06-18 Route: l 13:12: IVP, Drug [place] Form: SOLN, Dosing Weight 79.119, kg, ONCALL, STAT, Start date: 06/18/22 8:12:00 CDT, Duration: 1 doses or times, Dose = 2.2ml/kg, Max dose = 150ml -- "To be infused by Radiology Staff ONLY" Omnipaque 2021-0 No 100 mL, Memor ia 350 mg/mL 06-18 Route: l 13:12: IVP, Drug Jim Form: SOLN, Dosing Weight 79.119, kg, ONCALL, STAT, Start date: 06/18/22 8:12:00 CDT, Duration: 1 doses or times, Dose = 2.2ml/kg, Max dose = 150ml -- "To be infused by Radiology Staff ONLY" thiamine + No Notes: Memor ia Sodium 9-03 (Same [...] IV 49 00 B1) mL thiamine + No Notes: Memor ia Sodium 06-18 (Same As: l Chloride 11:14: Vitamin Juan Jose n 0.9% IV 49 00 B1) mL methylPREDN No Notes: [place] jeannette ISolone 06-18 (Same l SODium 11:00: as:Solu-ME Rashmi nn SUCCinate 00 DROL, A-Methapre d) diphenhydrA No Notes: [place] jeannette MINE 06-18 (Same as: l 11:00: Benadryl) [place] methylPREDN No Notes: [place] jeannette ISolone 06-18 (Same l SODium 11:00: as:Solu-ME Rashmi nn SUCCinate 00 DROL, A-Methapre d) diphenhydrA No Notes: [place] jeannette MINE 06-18 (Same as: l 11:00: Benadryl) [place] methylPREDN No Notes: [place] jeannette ISolone 06-18 [...] 06-18 (Same as: l 11:00: Benadryl) Jim 00 methylPREDN No Notes: [place] jeannette ISolone 06-18 (Same l SODium 11:00: as:Solu-ME Rashmi nn SUCCinate 00 DROL, A-Methapre d) diphenhydrA No Notes: [place] jeannette MINE 06-18 (Same as: l 11:00: Benadryl) Jim 00 Benadryl No Notes: Memoria 06-18 (Same as: l 10:42: Benadryl) Jim 00 Benadryl No Notes: Memoria 9- (Same as: l 10:42: Benadryl) Jim Benadryl No Notes: Memoria 9- (Same as: l 10:42: Benadryl) [place] Benadryl No Notes: Memoria 9- (Same as: l 10:42: Benadryl) [place] Benadryl No Notes: Memoria 9- (Same as: l 10:42: Benadryl) Jim Isolyte S No Notes: Memori a PH-7.4 9- (Same as: l (Bolus) IV 09:38: Isolyte S He rmann 00 PH7.4, Normosol-R PH 7.4, Plasma-Lyt e A ) Isolyte S No Notes: Memori a PH-7.4 - (Same as: l (Bolus) IV 09:38: Isolyte S He rmann 00 PH7.4, Normosol-R PH 7.4, Plasma-Lyt e A ) Isolyte S No Notes: Memori a PH-7.4 9- (Same as: l (Bolus) IV 09:38: Isolyte S He rmann 00 PH7.4, Normosol-R PH 7.4, Plasma-Lyt e A ) Isolyte S No Notes: Memori a PH-7.4 9- (Same as: l (Bolus) IV 09:38: Isolyte S He rmann 00 PH7.4, Normosol-R PH 7.4, Plasma-Lyt e A ) Isolyte S No Notes: Memori a PH-7.4 9-03 (Same as: l (Bolus) IV 09:38: Isolyte S He rmann 00 PH7.4, Normosol-R PH 7.4, Plasma-Lyt e A ) Isolyte S No Notes: Memori a PH-7.4 9- (Same as: l (Bolus) IV 09:34: Isolyte [...] A ) DuoNeb No Notes: Memoria inhalation - (Same [...] solution 08:36: Duoneb) Juan Jose n morphine No 4 mg, Memoria Sulfate 06-18 Route: l 08:33: IVP, ONCE, Dosing Weight 79.119, kg, Priority: STAT, Start date: 06/18/22 3:33:00 CDT, Stop date: 06/18/22 3:33:00 CDT Zofran 2022-0 No 4 mg, Memoria 9- Route: l 08:33: IVP, Drug Jim 00 form: INJ, ONCE, Dosing Weight 79.119, kg, Priority: STAT, Start date: 06/18/22 3:33:00 CDT, Stop date: 06/18/22 3:33:00 CDT morphine 2022-0 No 4 mg, Memoria Sulfate 06-18 Route: l 08:33: IVP, ONCE, [place] Dosing Weight 79.119, kg, Priority: STAT, Start date: 06/18/22 3:33:00 CDT, Stop date: 06/18/22 3:33:00 CDT Zofran 2022-0 No 4 mg, Memoria 9- Route: l 08:33: IVP, Drug [place] 00 form: INJ, ONCE, Dosing Weight 79.119, kg, Priority: STAT, Start date: 06/18/22 3:33:00 CDT, Stop date: 06/18/22 3:33:00 CDT morphine 2022-0 No 4 mg, Memoria Sulfate 06-18 Route: l 08:33: IVP, ONCE, Jim Dosing Weight 79.119, kg, Priority: STAT, Start date: 06/18/22 3:33:00 CDT, Stop date: 06/18/22 3:33:00 CDT Zofran 2022-0 No 4 mg, Memoria - Route: l 08:33: IVP, Drug Jim 00 form: INJ, ONCE, Dosing Weight 79.119, kg, Priority: STAT, Start date: 06/18/22 3:33:00 CDT, Stop date: 06/18/22 3:33:00 CDT morphine 2022-0 No 4 mg, Memoria Sulfate - Route: l 08:33: IVP, ONCE, Jim 00 Dosing Weight 79.119, kg, Priority: STAT, Start date: 06/18/22 3:33:00 CDT, Stop date: 06/18/22 3:33:00 CDT Zofran 2022-0 No 4 mg, Memoria 9- Route: l 08:33: IVP, Drug Jim 00 form: INJ, ONCE, Dosing Weight 79.119, kg, Priority: STAT, Start date: 06/18/22 3:33:00 CDT, Stop date: 06/18/22 3:33:00 CDT morphine 2021-0 No 4 mg, Memoria Sulfate 06-18 Route: l 08:33: IVP, ONCE, Dosing Weight 79.119, kg, Priority: STAT, Start date: 06/18/22 3:33:00 CDT, Stop date: 06/18/22 3:33:00 CDT Zofran 2-0 No 4 mg, Memoria 06-18 Route: l 08:33: IVP, Drug form: INJ, ONCE, Dosing Weight 79.119, kg, Priority: STAT, Start date: 06/18/22 3:33:00 CDT, Stop date: 06/18/22 3:33:00 CDT lactobacill No Notes: [place] jeannette us 2-02 Same as l rhamnosus 15:00: [facility] GG budesonide- No Notes: [place] jeannette formoterol 2-02 (Same as: l 160 mcg-4.5 15:00: Symbicort) Jim mcg/inh 00 WASTE: inhalation Aerosol - aerosol Return to with Pharmacy adapter Streptococc No Notes: [place] jeannette us 2-02 Shake well l pneumoniae 15:00: prior to Her gomez serotype 1 use (Same capsular as: antigen Prevnar diphtheria 13) [id number] protein conjugate vaccine / Streptococc us pneumoniae serotype 14 capsular antigen diphtheria [id number] protein conjugate vaccine / Streptococc us pneumoniae serotype 18C capsular antigen d lactobacill No Notes: [place] jeannette us 2-02 Same as l rhamnosus [facility] No Notes: [place] jeannette formoterol 2-02 (Same as: l 160 mcg-4.5 15:00: Symbicort) Jim mcg/inh 00 WASTE: inhalation Aerosol - aerosol Return to with Pharmacy adapter Streptococc No Notes: Chilango jeannette us 2-02 Shake well l pneumoniae 15:00: prior to Her gomez serotype 1 00 use (Same capsular as: antigen Prevnar diphtheria 13) [id number] protein conjugate vaccine / Streptococc us pneumoniae serotype 14 capsular antigen diphtheria [id number] protein conjugate vaccine / Streptococc us pneumoniae serotype 18C capsular antigen d lactobacill No Notes: Chilango jeannette us 2-02 Same as l rhamnosus 15:[facility]: [facility] bud[facility]- No Notes: Chilango jeannette formoterol 2-02 (Same as: l 160 mcg-4.5 15:00: Symbicort) [place] mcg/inh 00 WASTE: inhalation Aerosol - aerosol Return to with Pharmacy adapter Streptococc No Notes: Chilango jeannette us 2-02 Shake well l pneumoniae 15:00: prior to Her gomez serotype 1 00 use (Same capsular as: antigen Prevnar diphtheria 13) [id number] protein conjugate vaccine / Streptococc us pneumoniae serotype 14 capsular antigen diphtheria [id number] protein conjugate vaccine / Streptococc us pneumoniae serotype 18C capsular antigen d lactobacill No Notes: Chilango jeannette us 2-02 Same as l [facility]hamnosus [facility] No Notes: Chilango jeannette formoterol 2-02 (Same as: l 160 mcg-4.5 15:00: Symbicort) [place] mcg/inh 00 WASTE: inhalation Aerosol - aerosol Return to with Pharmacy adapter Streptococc No Notes: Chilango jeannette us 2-02 Shake well l pneumoniae 15:00: prior to Her gomez serotype 1 00 use (Same capsular as: antigen Prevnar diphtheria 13) [id number] protein conjugate vaccine / Streptococc us pneumoniae serotype 14 capsular antigen diphtheria [id number] protein conjugate vaccine / Streptococc us pneumoniae serotype 18C capsular antigen d lactobacill No Notes: Chilango jeannette us 2-02 Same as l rhamnosus 15:00: [facility] bud[facility]- No Notes: Chilango jeannette formoterol 2-02 (Same as: l 160 mcg-4.5 15:00: Symbicort) Jim mcg/inh 00 WASTE: inhalation Aerosol - aerosol Return to with Pharmacy adapter Streptococc No Notes: Chilango jeannette us 2-02 Shake well l pneumoniae 15:00: prior to Her gomez serotype 1 00 use (Same capsular as: antigen Prevnar diphtheria 13) [id number] protein conjugate vaccine / Streptococc us pneumoniae serotype 14 capsular antigen diphtheria [id number] protein conjugate vaccine / Streptococc us pneumoniae serotype 18C capsular antigen d Levothroid No Notes: Memor ia 2-02 Take 1 l 12:30: hour Jim 00 before or 2 hours after meal; Enteral feeds may interefere with the absorption of this medication . (Same as:Levothr oid, Synthroid) Cytomel No Notes: Memoria 2-02 (Same as: l 12:30: Cytomel) [place] Levothroid No Notes: Memor ia 2-02 Take 1 l 12:30: hour Jim 00 before or 2 hours after meal; Enteral feeds may interefere with the absorption of this medication . (Same as:Levothr oid, Synthroid) Cytomel No Notes: Memoria 2-02 (Same as: l 12:30: Cytomel) [place] Levothroid No Notes: Memor ia 2-02 Take 1 l 12:30: hour [place] 00 before or 2 hours after meal; Enteral feeds may interefere with the absorption of this medication . (Same as:Levothr oid, Synthroid) Cytomel No Notes: Memoria 2-02 (Same as: l 12:30: Cytomel) Jim Levothroid No Notes: Memor ia 2-02 Take 1 l 12:30: hour Jim 00 before or 2 hours after meal; Enteral feeds may interefere with the absorption of this medication . (Same as:Levothr oid, Synthroid) Cytomel No Notes: Memoria 2-02 (Same as: l 12:30: Cytomel) [place] Levothroid No Notes: Memor ia 2-02 Take 1 l 12:30: hour Jim 00 before or 2 hours after meal; Enteral feeds may interefere with the absorption of this medication . (Same as:Levothr oid, Synthroid) Cytomel No Notes: Memoria 2-02 (Same as: l 12:30: Cytomel) Jim aspirin 81 No Notes: Do Me moria mg tablet, 11-17 not crush l enteric 03:00: or chew. Juan Jose n coated 00 (Same As: Ecotrin) Singulair No Notes: Memori a 2-02 (Same l 03:00: as:Singula Jim 00 ir) aspirin 81 2018-0 No Notes: Do Me moria mg tablet, 2-02 not crush l enteric 03:00: or chew. Juan Jose n coated 00 (Same As: Ecotrin) Singulair No Notes: Memori a 2-02 (Same l 03:00: as:Singula [place] 00 ir) aspirin 81 2018-0 No Notes: Do Me moria mg tablet, [...] (Same l 03:00: as:Singula Jim 00 ir) Flomax 0 No Notes: Memoria 2-02 (Same As: l 00:50: Flomax) Jim "Do Not Crush" metoprolol 0 No Notes: Memor ia 2-02 (Same as: l 00:50: Toprol XL) [place] 00 Do Not Crush Proscar 2018-0 No Notes: Memoria 2-02 (Same as: l 00:50: Proscar) [place] 00 "Do Not Crush" Women of childbeari ng age should not touch or handle broken tablets Flomax 0 No Notes: Memoria 2-02 (Same As: l 00:50: Flomax) Jim 00 "Do Not Crush" metoprolol 2018-0 No Notes: Memor ia 2-02 (Same as: l 00:50: Toprol XL) Jim Do Not Crush Proscar 2018-0 No Notes: Memoria 2-02 (Same as: l 00:50: Proscar) Jim 00 "Do Not Crush" Women of childbeari ng age should not touch or handle broken tablets Flomax 0 No Notes: Memoria 2-02 (Same As: l 00:50: Flomax) Jim 00 "Do Not Crush" metoprolol 0 No Notes: Memor ia 2-02 (Same as: l 00:50: Toprol XL) Jim 00 Do Not Crush Proscar 2017-0 No Notes: Memoria 2-02 (Same as: l 00:50: Proscar) [place] 00 "Do Not Crush" Women of childbeari ng age should not touch or handle broken tablets Flomax No Notes: Memoria 2-02 (Same As: l 00:50: Flomax) Jim 00 "Do Not Crush" metoprolol 0 No Notes: Memor ia 2-02 (Same as: l 00:50: Toprol XL) Jim 00 Do Not Crush Proscar 0 No Notes: Memoria 2-02 (Same as: l 00:50: Proscar) [place] 00 "Do Not Crush" Women of childbeari ng age should not touch or handle broken tablets Flomax No Notes: Memoria 2-02 (Same As: l 00:50: Flomax) Jim 00 "Do Not Crush" metoprolol 0 No Notes: Memor ia 2-02 (Same as: l 00:50: Toprol XL) Jim 00 Do Not Crush Proscar 2017-0 No Notes: Memoria 2-02 (Same as: l 00:50: Proscar) [place] 00 "Do Not Crush" Women of childbeari ng age should not touch or handle broken tablets cetirizine 0 No Notes: Memor ia 2-01 (Same As: l 23:53: Zyrtec) [place] 00 cetirizine 2017-0 No Notes: Memor ia 2-01 (Same As: l 23:53: Zyrtec) [place] 00 cetirizine 2017-0 No Notes: Memor ia 2-01 (Same As: l 23:53: Zyrtec) Jim cetirizine 2017-0 No Notes: Memor ia 2-01 (Same As: l 23:53: Zyrte) cetirizine No Notes: Memor ia 11-16 (Same As: l 23:53: Zyrte) metoprolol Yes 25 mg = 1 Me [...] / 11-16 (Same as: l Hydrocodone 20:37: Moselle Rashmi nn Bitartrate 00 325/5) Do 5 MG Oral not exceed Tablet 4gm/day of [Moselle acetaminop 5/325] hen. Acetaminoph No Notes: Chilango jeannette en 325 MG / 11-16 (Same as: l Hydrocodone 20:37: Moselle Rashmi nn Bitartrate 00 325/5) Do 5 MG Oral not exceed Tablet 4gm/day of [Moselle acetaminop 5/325] hen. Acetaminoph No Notes: Chilango jeannette en 325 MG / 11-16 (Same as: l Hydrocodone 20:37: Moselle Rashmi nn Bitartrate 00 325/5) Do 5 MG Oral not exceed Tablet 4gm/day of [Moselle acetaminop 5/325] hen. Acetaminoph No Notes: Chilango jeannette en 325 MG / 11-16 (Same as: l Hydrocodone 20:37: Moselle Rashmi nn Bitartrate 00 325/5) Do 5 MG Oral not exceed Tablet 4gm/day of [Moselle acetaminop 5/325] hen. Acetaminoph No Notes: Chilango jeannette en 325 MG / 11-16 (Same as: l Hydrocodone 20:37: Moselle Rashmi nn Bitartrate 00 325/5) Do 5 MG Oral not exceed Tablet 4gm/day of [Moselle acetaminop 5/325] hen. Acetaminoph No Notes: Chilango jeannette en 325 MG / 11-16 (Same as: l Hydrocodone 20:36: Moselle Rashmi nn Bitartrate 00 325/5) Do 5 MG Oral not exceed Tablet 4gm/day of [Moselle acetaminop 5/325] hen. Acetaminoph No Notes: Hcilango jeannette en 325 MG / 11-16 (Same as: l Hydrocodone 20:36: Moselle Rashmi nn Bitartrate 00 325/5) Do 5 MG Oral not exceed Tablet 4gm/day of [Moselle acetaminop 5/325] hen. Acetaminoph No Notes: Chilango jeannette en 325 MG / 11-16 (Same as: l Hydrocodone 20:36: Moselle Rashmi nn Bitartrate 00 325/5) Do 5 MG Oral not exceed Tablet 4gm/day of [Moselle acetaminop 5/325] hen. Acetaminoph No Notes: Chilango jeannette en 325 MG / 11-16 (Same as: l Hydrocodone 20:36: Moselle Rashmi nn Bitartrate 00 325/5) Do 5 MG Oral not exceed Tablet 4gm/day of [Moselle acetaminop 5/325] hen. Acetaminoph No Notes: Chilango jeannette en 325 MG / 11-16 (Same as: l Hydrocodone 20:36: Moselle Rashmi nn Bitartrate 00 325/5) Do 5 MG Oral not exceed Tablet 4gm/day of [Moselle acetaminop 5/325] hen. ketOROLAC No 60 mg, Memori a 30 mg/mL 11-16 Route: IM, l injectable 20:01: Drug form: H ermann solution 00 INJ, ONCE, Dosing Weight 79.119, kg, Start date: 11/16/17 14:01:00 REGULATORY PRODUCT MANAGER, Stop date: 11/16/17 14:01:00 REGULATORY PRODUCT MANAGER ketOROLAC 2018-0 No 60 mg, Memori a 30 mg/mL 2- Route: IM, l injectable 20:01: Drug form: H ermann solution 00 INJ, ONCE, Dosing Weight 79.119, kg, Start date: 11/16/17 14:01:00 REGULATORY PRODUCT MANAGER, Stop date: 11/16/17 14:01:00 REGULATORY PRODUCT MANAGER ketOROLAC 2018-0 No 60 mg, Memori a 30 mg/mL 2- Route: IM, l injectable 20:01: Drug form: H ermann solution 00 INJ, ONCE, Dosing Weight 79.119, kg, Start date: 11/16/17 14:01:00 REGULATORY PRODUCT MANAGER, Stop date: 11/16/17 14:01:00 REGULATORY PRODUCT MANAGER ketOROLAC 2018-0 No 60 mg, Memori a 30 mg/mL 2- Route: IM, l injectable 20:01: Drug form: H ermann solution 00 INJ, ONCE, Dosing Weight 79.119, kg, Start date: 11/16/17 14:01:00 REGULATORY PRODUCT MANAGER, Stop date: 11/16/17 14:01:00 REGULATORY PRODUCT MANAGER ketOROLAC 2018-0 No 60 mg, Memori a 30 mg/mL 2- Route: IM, l injectable 20:01: Drug form: H ermann solution 00 INJ, ONCE, Dosing Weight 79.119, kg, Start date: 11/16/17 14:01:00 REGULATORY PRODUCT MANAGER, Stop date: 11/16/17 14:01:00 REGULATORY PRODUCT MANAGER Demerol HCl 2018-0 No 25 mg, Chilango jeannette 2-01 Route: l 19:45: IVP, ONCE, Jim 00 Dosing Weight 79.119, kg, PRN Pain Score 7-10, Start date: 11/16/17 13:45:00 REGULATORY PRODUCT MANAGER Demerol HCl 2018-0 No 25 mg, Chilango jeannette 2-01 Route: l 19:45: IVP, ONCE, [place] Dosing Weight 79.119, kg, PRN Pain Score 7-10, Start date: 11/16/17 13:45:00 REGULATORY PRODUCT MANAGER Demerol HCl 2018-0 No 25 mg, Chilango jeannette 2-01 Route: l 19:45: IVP, ONCE, Dosing Weight 79.119, kg, PRN Pain Score 7-10, Start date: 11/16/17 13:45:00 REGULATORY PRODUCT MANAGER Demerol HCl 2017-0 No 25 mg, Chilango jeannette 2-01 Route: l 19:45: IVP, ONCE, Dosing Weight 79.119, kg, PRN Pain Score 7-10, Start date: 11/16/17 13:45:00 REGULATORY PRODUCT MANAGER Demerol HCl 2017-0 No 25 mg, Chilango jeannette 2-01 Route: l 19:45: IVP, ONCE, Dosing Weight 79.119, kg, PRN Pain Score 7-10, Start date: 11/16/17 13:45:00 REGULATORY PRODUCT MANAGER Fentanyl 0 No Notes: Memoria 2-01 (Same as: l 19:03: Sublimaze) Jim Preservati ve free. Fentanyl 0 No Notes: Memoria 2-01 (Same as: l 19:03: Sublimaze) [place] Preservati ve free. Fentanyl 2017-0 No Notes: Memoria 2-01 (Same as: l 19:03: Sublimaze) Jim 00 Preservati ve free. Fentanyl 0 No Notes: Memoria 2-01 (Same as: l 19:03: Sublimaze) [place] Preservati ve free. Fentanyl 2017-0 No Notes: Memoria 2-01 (Same as: l 19:03: Sublimaze) [place] Preservati ve free. Ondansetron 0 No 4 mg, Memor ia 2-01 Route: l 19:01: IVP, ONCE, Dosing Weight 79.119, kg, PRN Nausea & Vomiting, Start date: 11/16/17 13:01:00 REGULATORY PRODUCT MANAGER Naloxone 2017-0 No 0.4 mg, Memori a 2-01 Route: l 19:01: IVP, Q2MIN, Dosing Weight 79.119, kg, PRN Narcotic Reversal, Start date: 11/16/17 13:01:00 REGULATORY PRODUCT MANAGER, Duration: 8 doses or times, Stop date: Limited # of times Flumazenil 0 No 0.2 mg, Chilango jeannette 2-01 Route: l 19:01: IVP, PRN, [place] 00 Dosing Weight 79.119, kg, PRN Benzodiaze pine Reversal, Initial dose, Start date: 11/16/17 13:01:00 REGULATORY PRODUCT MANAGER, Duration: 30 day, Stop date: 12/16/17 13:00:00 REGULATORY PRODUCT MANAGER Fentanyl 2018-0 No 25 Memoria 2-01 microgram, l 19:01: Route: [place] 00 IVP, Q5Min, Dosing Weight 79.119, kg, PRN Pain Score 4-6, Priority: Routine, Start date: 11/16/17 13:01:00 REGULATORY PRODUCT MANAGER, Duration: 4 doses or times, Stop date: Limited # of times Labetalol 2018-0 No 10 mg, Memori a 2- Route: l 19:01: IVP, Jim 00 Q5Min, Dosing Weight 79.119, kg, PRN Elevated BP, Start date: 11/16/17 13:01:00 REGULATORY PRODUCT MANAGER, Duration: 5 doses or times, Stop date: Limited # of times Ondansetron 2018-0 No 4 mg, Memor ia 2- Route: l 19:01: IVP, ONCE, Dosing Weight 79.119, kg, PRN Nausea & Vomiting, Start date: 11/16/17 13:01:00 REGULATORY PRODUCT MANAGER Naloxone 2018-0 No 0.4 mg, Memori a 2- Route: l 19:01: IVP, [place] 00 Q2MIN, Dosing Weight 79.119, kg, PRN Narcotic Reversal, Start date: 11/16/17 13:01:00 REGULATORY PRODUCT MANAGER, Duration: 8 doses or times, Stop date: Limited # of times Flumazenil 2018-0 No 0.2 mg, Chilango jeannette 2-01 Route: l 19:01: IVP, PRN, [place] 00 Dosing Weight 79.119, kg, PRN Benzodiaze pine Reversal, Initial dose, Start date: 11/16/17 13:01:00 REGULATORY PRODUCT MANAGER, Duration: 30 day, Stop date: 12/16/17 13:00:00 REGULATORY PRODUCT MANAGER Fentanyl 2018-0 No 25 Memoria 2-01 microgram, l 19:01: Route: [place] 00 IVP, Q5Min, Dosing Weight 79.119, kg, PRN Pain Score 4-6, Priority: Routine, Start date: 11/16/17 13:01:00 REGULATORY PRODUCT MANAGER, Duration: 4 doses or times, Stop date: Limited # of times Labetalol 2018-0 No 10 mg, Memori a 2- Route: l 19:01: IVP, [place] 00 Q5Min, Dosing Weight 79.119, kg, PRN Elevated BP, Start date: 11/16/17 13:01:00 REGULATORY PRODUCT MANAGER, Duration: 5 doses or times, Stop date: Limited # of times Ondansetron 2018-0 No 4 mg, Memor ia 2- Route: l 19:01: IVP, ONCE, [place] 00 Dosing Weight 79.119, kg, PRN Nausea & Vomiting, Start date: 11/16/17 13:01:00 REGULATORY PRODUCT MANAGER Naloxone 2018-0 No 0.4 mg, Memori a 2- Route: l 19:01: IVP, Jim 00 Q2MIN, Dosing Weight 79.119, kg, PRN Narcotic Reversal, Start date: 11/16/17 13:01:00 REGULATORY PRODUCT MANAGER, Duration: 8 doses or times, Stop date: Limited # of times Flumazenil 2018-0 No 0.2 mg, Chilango jeannette 2- Route: l 19:01: IVP, PRN, [place] 00 Dosing Weight 79.119, kg, PRN Benzodiaze pine Reversal, Initial dose, Start date: 11/16/17 13:01:00 REGULATORY PRODUCT MANAGER, Duration: 30 day, Stop date: 12/16/17 13:00:00 REGULATORY PRODUCT MANAGER Fentanyl 2018-0 No 25 Memoria 2-01 microgram, l 19:01: Route: [place] 00 IVP, Q5Min, Dosing Weight 79.119, kg, PRN Pain Score 4-6, Priority: Routine, Start date: 11/16/17 13:01:00 REGULATORY PRODUCT MANAGER, Duration: 4 doses or times, Stop date: Limited # of times Labetalol 2018-0 No 10 mg, Memori a 2- Route: l 19:01: IVP, Jim 00 Q5Min, Dosing Weight 79.119, kg, PRN Elevated BP, Start date: 11/16/17 13:01:00 REGULATORY PRODUCT MANAGER, Duration: 5 doses or times, Stop date: Limited # of times Ondansetron 2018-0 No 4 mg, Memor ia 2-01 Route: l 19:01: IVP, ONCE, [place] 00 Dosing Weight 79.119, kg, PRN Nausea & Vomiting, Start date: 11/16/17 13:01:00 REGULATORY PRODUCT MANAGER Naloxone 2018-0 No 0.4 mg, Memori a 2- Route: l 19:01: IVP, [place] 00 Q2MIN, Dosing Weight 79.119, kg, PRN Narcotic Reversal, Start date: 11/16/17 13:01:00 REGULATORY PRODUCT MANAGER, Duration: 8 doses or times, Stop date: Limited # of times Flumazenil 2018-0 No 0.2 mg, Chilango jeannette 2- Route: l 19:01: IVP, PRN, [place] 00 Dosing Weight 79.119, kg, PRN Benzodiaze pine Reversal, Initial dose, Start date: 11/16/17 13:01:00 REGULATORY PRODUCT MANAGER, Duration: 30 day, Stop date: 12/16/17 13:00:00 REGULATORY PRODUCT MANAGER Fentanyl 2018-0 No 25 Memoria 2-01 microgram, l 19:01: Route: Jim 00 IVP, Q5Min, Dosing Weight 79.119, kg, PRN Pain Score 4-6, Priority: Routine, Start date: 11/16/17 13:01:00 REGULATORY PRODUCT MANAGER, Duration: 4 doses or times, Stop date: Limited # of times Labetalol 2018-0 No 10 mg, Memori a 2- Route: l 19:01: IVP, [place] 00 Q5Min, Dosing Weight 79.119, kg, PRN Elevated BP, Start date: 11/16/17 13:01:00 REGULATORY PRODUCT MANAGER, Duration: 5 doses or times, Stop date: Limited # of times Ondansetron 2018-0 No 4 mg, Memor ia 2- Route: l 19:01: IVP, ONCE, Jim 00 Dosing Weight 79.119, kg, PRN Nausea & Vomiting, Start date: 11/16/17 13:01:00 REGULATORY PRODUCT MANAGER Naloxone 2018-0 No 0.4 mg, Memori a 2- Route: l 19:01: IVP, Jim 00 Q2MIN, Dosing Weight 79.119, kg, PRN Narcotic Reversal, Start date: 11/16/17 13:01:00 REGULATORY PRODUCT MANAGER, Duration: 8 doses or times, Stop date: Limited # of times Flumazenil 2018-0 No 0.2 mg, Ch[place] jeannette 2-01 Route: l 19:01: IVP, PRN, [place] 00 Dosing Weight 79.119, kg, PRN Benzodiaze pine Reversal, Initial dose, Start date: 11/16/17 13:01:00 REGULATORY PRODUCT MANAGER, Duration: 30 day, Stop date: 12/16/17 13:00:00 REGULATORY PRODUCT MANAGER Fentanyl 2018-0 No 25 Memoria 2-01 microgram, l 19:01: Route: Jim 00 IVP, Q5Min, Dosing Weight 79.119, kg, PRN Pain Score 4-6, Priority: Routine, Start date: 11/16/17 13:01:00 REGULATORY PRODUCT MANAGER, Duration: 4 doses or times, Stop date: Limited # of times Labetalol 2018-0 No 10 mg, Memori a 2-01 Route: l 19:01: IVP, [place] 00 Q5Min, Dosing Weight 79.119, kg, PRN Elevated BP, Start date: 11/16/17 13:01:00 REGULATORY PRODUCT MANAGER, Duration: 5 doses or times, Stop date: Limited # of times Oxycodone 2018-0 No 10 mg, Memori a Hydrochlori 2-01 Route: PO, l de 5 MG 18:33: Drug form: Herm rashaad Oral Tablet 00 TAB, ONCE, Dosing Weight 79.119, kg, PRN Pain Score 7-10, Start date: 11/16/17 12:33:00 REGULATORY PRODUCT MANAGER Oxycodone 2018-0 No 10 mg, Memori a Hydrochlori 2-01 Route: PO, l de 5 MG 18:33: Drug form: Herm rashaad Oral Tablet 00 TAB, ONCE, Dosing Weight 79.119, kg, PRN Pain Score 7-10, Start date: 11/16/17 12:33:00 REGULATORY PRODUCT MANAGER Oxycodone 2018-0 No 10 mg, Memori a Hydrochlori 2-01 Route: PO, l de 5 MG 18:33: Drug form: Herm rashaad Oral Tablet 00 TAB, ONCE, Dosing Weight 79.119, kg, PRN Pain Score 7-10, Start date: 11/16/17 12:33:00 REGULATORY PRODUCT MANAGER Oxycodone 2018-0 No 10 mg, Memori a Hydrochlori 2-01 Route: PO, l de 5 MG 18:33: Drug form: Herm rashaad Oral Tablet 00 TAB, ONCE, Dosing Weight 79.119, kg, PRN Pain Score 7-10, Start date: 11/16/17 12:33:00 REGULATORY PRODUCT MANAGER Oxycodone 2018-0 No 10 mg, Memori a Hydrochlori 2-01 Route: PO, l de 5 MG 18:33: Drug form: Herm rashaad Oral Tablet 00 TAB, ONCE, Dosing Weight 79.119, kg, PRN Pain Score 7-10, Start date: 11/16/17 12:33:00 REGULATORY PRODUCT MANAGER Oxycodone 2017-0 No Notes: Memori a Hydrochlori 2-01 (Same as: l de 5 MG 18:31: Roxicodone Herm rashaad Oral Tablet ) Oxycodone 2017-0 No Notes: Memori a Hydrochlori 2-01 (Same as: l de 5 MG 18:31: Roxicodone Herm rashaad Oral Tablet 00 ) Oxycodone 2017-0 No Notes: Memori a Hydrochlori 2-01 (Same as: l de 5 MG 18:31: Roxicodone Herm rashaad Oral Tablet ) Oxycodone 2017-0 No Notes: Memori a Hydrochlori 2-01 (Same as: l de 5 MG 18:31: Roxicodone Herm rashaad Oral Tablet 00 ) Oxycodone 2017-0 No Notes: Memori a Hydrochlori 2-01 (Same as: l de 5 MG 18:31: Roxicodone Herm rashaad Oral Tablet ) ondansetron 2017-0 No Route: IV, Memoria (ANES) 2- Drug form: l 17:42: INJ, ONCE, Stop date: 11/16/17 11:42:00 REGULATORY PRODUCT MANAGER fentaNYL 2018-0 No Route: IV, Mem oria (ANES) 2- Drug form: l 17:42: INJ, ONCE, Stop date: 11/16/17 11:42:00 REGULATORY PRODUCT MANAGER lidocaine 2018-0 No Route: IV, Me moria (ANES) 2- Drug form: l 17:42: INJ, ONCE, Stop date: 11/16/17 11:42:00 REGULATORY PRODUCT MANAGER ondansetron 2018-0 No Route: IV, Memoria (ANES) 2- Drug form: l 17:42: INJ, ONCE, Stop date: 11/16/17 11:42:00 REGULATORY PRODUCT MANAGER fentaNYL 2018-0 No Route: IV, Mem oria (ANES) 2- Drug form: l 17:42: INJ, ONCE, Stop date: 11/16/17 11:42:00 REGULATORY PRODUCT MANAGER lidocaine 2018-0 No Route: IV, Me moria (ANES) 2- Drug form: l 17:42: INJ, ONCE, Stop date: 11/16/17 11:42:00 REGULATORY PRODUCT MANAGER ondansetron 2018-0 No Route: IV, Memoria (ANES) 2- Drug form: l 17:42: INJ, ONCE, Stop date: 11/16/17 11:42:00 REGULATORY PRODUCT MANAGER fentaNYL 2018-0 No Route: IV, Mem oria (ANES) 2- Drug form: l 17:42: INJ, ONCE, Stop date: 11/16/17 11:42:00 REGULATORY PRODUCT MANAGER lidocaine 2018-0 No Route: IV, Me moria (ANES) 2- Drug form: l 17:42: INJ, ONCE, Stop date: 11/16/17 11:42:00 REGULATORY PRODUCT MANAGER ondansetron 2018-0 No Route: IV, Memoria (ANES) 2- Drug form: l 17:42: INJ, ONCE, Stop date: 11/16/17 11:42:00 REGULATORY PRODUCT MANAGER fentaNYL 2018-0 No Route: IV, Mem oria (ANES) 2- Drug form: l 17:42: INJ, ONCE, Stop date: 11/16/17 11:42:00 REGULATORY PRODUCT MANAGER lidocaine 2018-0 No Route: IV, Me moria (ANES) 2- Drug form: l 17:42: INJ, ONCE, Stop date: 11/16/17 11:42:00 REGULATORY PRODUCT MANAGER ondansetron 2018-0 No Route: IV, Memoria (ANES) 2- Drug form: l 17:42: INJ, ONCE, Stop date: 11/16/17 11:42:00 REGULATORY PRODUCT MANAGER fentaNYL 2018-0 No Route: IV, Mem oria (ANES) 2- Drug form: l 17:42: INJ, ONCE, [place] 00 Stop date: 11/16/17 11:42:00 REGULATORY PRODUCT MANAGER lidocaine 2018-0 No Route: IV, Me moria (ANES) 11-16 Drug form: l 17:42: INJ, ONCE Stop date: 11/16/17 11:42:00 REGULATORY PRODUCT MANAGER propofol 2018-0 No Route: IV, Mem oria (ANES) 10 11-16 Drug form: l mg 17:01: INJ, Start date: 11/16/17 11:01:00 REGULATORY PRODUCT MANAGER, Stop date: 11/16/17 12:01:00 REGULATORY PRODUCT MANAGER propofol 2018-0 No Route: IV, Mem oria (ANES) 10 11-16 Drug form: l mg 17:01: INJ, Start date: 11/16/17 11:01:00 REGULATORY PRODUCT MANAGER, Stop date: 11/16/17 12:01:00 REGULATORY PRODUCT MANAGER propofol 2018-0 No Route: IV, Mem oria (ANES) 10 11-16 Drug form: l mg 17:01: INJ, Start date: 11/16/17 11:01:00 REGULATORY PRODUCT MANAGER, Stop date: 11/16/17 12:01:00 REGULATORY PRODUCT MANAGER propofol 2018-0 No Route: IV, Mem oria (ANES) 10 11-16 Drug form: l mg 17:01: INJ, Start date: 11/16/17 11:01:00 REGULATORY PRODUCT MANAGER, Stop date: 11/16/17 12:01:00 REGULATORY PRODUCT MANAGER propofol 2018-0 No Route: IV, Mem oria (ANES) 10 11-16 Drug form: l mg 17:01: INJ, Start date: 11/16/17 11:01:00 REGULATORY PRODUCT MANAGER, Stop date: 11/16/17 12:01:00 REGULATORY PRODUCT MANAGER ceFAZolin 2018-0 No Route: IV, Me moria (ANES) 1000 11-16 Drug form: l mg 17:00: INJ, Start date: 11/16/17 11:00:00 REGULATORY PRODUCT MANAGER, Stop date: 11/16/17 12:00:00 REGULATORY PRODUCT MANAGER ceFAZolin 2018-0 No Route: IV, Me moria (ANES) 1000 11-16 Drug form: l mg 17:00: INJ, Start date: 11/16/17 11:00:00 REGULATORY PRODUCT MANAGER, Stop date: 11/16/17 12:00:00 REGULATORY PRODUCT MANAGER ceFAZolin 2018-0 No Route: IV, Me moria (ANES) 1000 01 Drug form: l mg 17:00: INJ, Start date: 11/16/17 11:00:00 REGULATORY PRODUCT MANAGER, Stop date: 11/16/17 12:00:00 REGULATORY PRODUCT MANAGER ceFAZolin 2018-0 No Route: IV, Me russella (ANES) 1000 11-16 Drug form: l mg 17:00: INJ, Start date: 11/16/17 11:00:00 REGULATORY PRODUCT MANAGER, Stop date: 11/16/17 12:00:00 REGULATORY PRODUCT MANAGER ceFAZolin 2018-0 No Route: IV, Me russella (ANES) 11-16 Drug form: l mg 17:00: INJ, Start date: 11/16/17 11:00:00 REGULATORY PRODUCT MANAGER, Stop date: 11/16/17 12:00:00 REGULATORY PRODUCT MANAGER Lactated 2018-0 No Route: IV, Mem oria Ringers 2-01 Total l Injection 16:52: Volume: Rashmi nn IV (ANES) 00 1,000, 1000 mL Start date: 11/16/17 10:52:00 REGULATORY PRODUCT MANAGER, Stop date: 11/16/17 11:52:00 REGULATORY PRODUCT MANAGER Lactated 2018-0 No Route: IV, Mem oria Ringers 2-01 Total l Injection 16:52: Volume: Rashmi nn IV (ANES) 00 1,000, 1000 mL Start date: 11/16/17 10:52:00 REGULATORY PRODUCT MANAGER, Stop date: 11/16/17 11:52:00 REGULATORY PRODUCT MANAGER Lactated 2018-0 No Route: IV, Mem oria Ringers 2-01 Total l Injection 16:52: Volume: Rashmi nn IV (ANES) 00 1,000, 1000 mL Start date: 11/16/17 10:52:00 REGULATORY PRODUCT MANAGER, Stop date: 11/16/17 11:52:00 REGULATORY PRODUCT MANAGER Lactated 2018-0 No Route: IV, Mem oria Ringers 2-01 Total l Injection 16:52: Volume: Rashmi nn IV (ANES) 00 1,000, 1000 mL Start date: 11/16/17 10:52:00 REGULATORY PRODUCT MANAGER, Stop date: 11/16/17 11:52:00 REGULATORY PRODUCT MANAGER Lactated 2018-0 No Route: IV, Mem oria Ringers 2-01 Total l Injection 16:52: Volume: Rashmi nn IV (ANES) 00 1,000, 1000 mL Start date: 11/16/17 10:52:00 REGULATORY PRODUCT MANAGER, Stop date: 11/16/17 11:52:00 REGULATORY PRODUCT MANAGER Calcium 2018-0 No 1,000 mL, [facility] Chloride 2-01 Rate: 25 l 0.0014 15:38: ml/hr, [place] MEQ/ML / 00 Infuse Potassium over: 40 Chloride hr, Route: 0.004 IV, Dosing MEQ/ML / Weight Sodium 79.119 kg, Chloride Total 0.103 Volume: MEQ/ML / 1,000, Sodium Start Lactate date: 0.028 18 MEQ/ML 9:38:00 Injectable REGULATORY PRODUCT MANAGER, Solution Duration: 30 day, Stop date: 12/16/17 9:37:00 REGULATORY PRODUCT MANAGER, 1.99, m2 Calcium 2018-0 No 1,000 mL, [facility] Chloride 2-01 Rate: 25 l 0.0014 15:38: ml/hr, Jim MEQ/ML / 00 Infuse Potassium over: 40 Chloride hr, Route: 0.004 IV, Dosing MEQ/ML / Weight Sodium 79.119 kg, Chloride Total 0.103 Volume: MEQ/ML / 1,000, Sodium Start Lactate date: 0.028 18 MEQ/ML 9:38:00 Injectable REGULATORY PRODUCT MANAGER, Solution Duration: 30 day, Stop date: 12/16/17 9:37:00 REGULATORY PRODUCT MANAGER, 1.99, m2 Calcium 2018-0 No 1,000 mL, [facility] Chloride 2-01 Rate: 25 l 0.0014 15:38: ml/hr, Jim MEQ/ML / 00 Infuse Potassium over: 40 Chloride hr, Route: 0.004 IV, Dosing MEQ/ML / Weight Sodium 79.119 kg, Chloride Total 0.103 Volume: MEQ/ML / 1,000, Sodium Start Lactate date: 0.028 18 MEQ/ML 9:38:00 Injectable REGULATORY PRODUCT MANAGER, Solution Duration: 30 day, Stop date: 12/16/17 9:37:00 REGULATORY PRODUCT MANAGER, 1.99, m2 Calcium 2018-0 No 1,000 mL, [facility] Chloride 2-01 Rate: 25 l 0.0014 15:38: ml/hr, [place] MEQ/ML / 00 Infuse Potassium over: 40 Chloride hr, Route: 0.004 IV, Dosing MEQ/ML / Weight Sodium 79.119 kg, Chloride Total 0.103 Volume: MEQ/ML / 1,000, Sodium Start Lactate date: 0.028 18 MEQ/ML 9:38:00 Injectable REGULATORY PRODUCT MANAGER, Solution Duration: 30 day, Stop date: 12/16/17 9:37:00 REGULATORY PRODUCT MANAGER, 1.99, m2 Calcium 2018-0 No 1,000 mL, [facility] Chloride 2-01 Rate: 25 l 0.0014 15:38: ml/hr, [place] MEQ/ML / 00 Infuse Potassium over: 40 Chloride hr, Route: 0.004 IV, Dosing MEQ/ML / Weight Sodium 79.119 kg, Chloride Total 0.103 Volume: MEQ/ML / 1,000, Sodium Start Lactate date: 0.028 11/16/17 MEQ/ML 9:38:00 Injectable REGULATORY PRODUCT MANAGER, Solution Duration: 30 day, Stop date: 12/16/17 9:37:00 REGULATORY PRODUCT MANAGER, 1.99, m2 montelukast 2018-0 Yes 10 mg = 1 M emoria 10 mg oral -31 tab, PO, l tablet 17:31: Bedtime, # Rashmi nn 00 30 tab, 0 Refill(s) Leisa 2018-0 Yes PO, 0 Memoria 11-15 Refill(s) l 17:31: Jim Symbicort 2018-0 Yes 2 puff, [facility] 160/4.5 11-15 INHALER, l inhalation 17:31: BID, # 1 Her gomez aerosol 00 ea, 3 with Refill(s) adapter Symbicort 2018-0 Yes 2 puff, [facility] 160/4.5 11-15 [...] Refill(s) Leisa 2017-0 Yes PO, 0 Memoria 1-31 Refill(s) l 17:31: Symbicort 2018-0 Yes 2 puff, [facility] 160/4.5 11-15 INHALER, l inhalation 17:31: BID, # 1 Her gomez aerosol 00 ea, 3 with Refill(s) adapter Symbicort 2018-0 Yes 2 puff, [facility] 160/4.5 11-15 INHALER, l inhalation 17:31: BID, # 1 Her gomez aerosol 00 ea, 3 with Refill(s) adapter montelukast 2018-0 Yes 10 mg = 1 M emoria 10 mg oral 11-15 tab, PO, l tablet 17:31: Bedtime, # Rashmi nn 00 30 tab, 0 Refill(s) Leisa 2018-0 Yes PO, 0 [facility] 31 Refill(s) l 17:31: montelukast 2018-0 Yes 10 mg = 1 M emoria 10 mg oral 11-15 tab, PO, l tablet 17:31: Bedtime, # Rashmi nn 00 30 tab, 0 Refill(s) Leisa 2018-0 Yes PO, 0 Memoria -31 Refill(s) l 17:31: Symbicort 2018-0 Yes 2 puff, [facility] 160/4.5 11-15 INHALER, l inhalation 17:31: BID, # 1 Her gomez aerosol 00 ea, 3 with Refill(s) adapter levothyroxi 2017-0 Yes 100 Memori a ne 100 mcg 1-31 microgram l (0.1 mg) 17:30: = 1 tab, Rashmi nn oral tablet 00 PO, Daily, # 30 tab, 0 Refill(s) levothyroxi 2018-0 Yes 100 Memori a ne 100 mcg 1-31 microgram l (0.1 mg) 17:30: = 1 tab, Rashmi nn oral tablet 00 PO, Daily, # 30 tab, 0 Refill(s) levothyroxi 2017-0 Yes 100 Memori a ne 100 mcg [...] succinate l ER 14:00: ER, 25 mg, [place] 00 Route: PO, Daily, 07/23/16 9:00:00 CDT, Duration: 30 day, Stop date: 08/21/16 9:00:00 REGULATORY PRODUCT MANAGER Triiodothyr 2015-10 No Notes: [place] jeannette onine 0-08 (Same as: l 14:00: Cytomel) [place] metoprolol 2015-10 No Notes: [facility] extended 0-08 (Same as: l release 14:00: Toprol XL) Herm rashaad Do Not Crush Finasteride 2015-10 No 5 mg, 1 Mem oria 0-08 tab, l 14:00: Route: PO, [place] 00 Drug form: TAB, Daily, Dosing Weight 81.2, kg, Start date: 07/23/16 9:00:00 CDT, Duration: 30 day, Stop date: 08/21/16 9:00:00 REGULATORY PRODUCT MANAGER Vitamin B 2015-10 No Notes: Memori a [...] Duration: 30 day, Stop date: 08/21/16 9:00:00 REGULATORY PRODUCT MANAGER Docusate 2015-10 No Notes: [facility] 0-08 (Same as: l 14:00: Colace) Jim 00 (Do Not Crush) Metoprolol 2015-10 No Metoprolol M emoria succinate 0-08 succinate l ER 14:00: ER, 25 mg, Route: PO, Daily, 07/23/16 9:00:00 CDT, Duration: 30 day, Stop date: 08/21/16 9:00:00 REGULATORY PRODUCT MANAGER Triiodothyr 2015-10 No Notes: [place] jeannette onine 0-08 (Same as: l 14:00: Cytomel) metoprolol 2015-10 No Notes: [facility] extended 0-08 (Same as: l release 14:00: Toprol XL) Do Not Crush Finasteride 2015-10 No 5 mg, 1 Mem oria 0-08 tab, l 14:00: Route: PO, [place] 00 Drug form: TAB, Daily, Dosing Weight 81.2, kg, Start date: 07/23/16 9:00:00 CDT, Duration: 30 day, Stop date: 08/21/16 9:00:00 REGULATORY PRODUCT MANAGER Vitamin B 2015-10 No Notes: Memori a 12 0-08 (Same As: l 14:00: Vitamin B-12) Vitamin D3 2015-10 No Notes: [facility] 1000 intl 0-08 Same as : l units oral 14:00: Vitamin D3 H erm tablet Aspirin 2015-10 No 81 mg, 1 Memori a Enteric 0-08 tab, l Coated 14:00: Route: PO, Drug form: ECTAB, Daily, Dosing Weight 81.2, kg, Start date: 07/23/16 9:00:00 CDT, Duration: 30 day, Stop date: 08/21/16 9:00:00 REGULATORY PRODUCT MANAGER Docusate 2015-10 No Notes: [facility]oria 0-08 (Same as: l 14:00: Colace) (Do Not Crush) Metoprolol 2015-10 No Metoprolol M emoria succinate 0-08 succinate l ER 14:00: ER, 25 mg, Route: PO, Daily, 07/23/16 9:00:00 CDT, Duration: 30 day, Stop date: 08/21/16 9:00:00 REGULATORY PRODUCT MANAGER Triiodothyr 2015-10 No Notes: [place] jeannette onine 0-08 (Same as: l 14:00: Cytomel) metoprolol 2015-10 No Notes: [facility] extended 0-08 (Same as: l release 14:00: Toprol XL) Herm rashaad Do Not Crush Finasteride 2015-10 No 5 mg, 1 Mem oria 0-08 tab, l 14:00: Route: PO, [place] Drug form: TAB, Daily, Dosing Weight 81.2, kg, Start date: 07/23/16 9:00:00 CDT, Duration: 30 day, Stop date: 08/21/16 9:00:00 REGULATORY PRODUCT MANAGER Vitamin B 2015-10 No Notes: Memori a [...] Duration: 30 day, Stop date: 08/21/16 9:00:00 REGULATORY PRODUCT MANAGER Docusate 2015-10 No Notes: [facility] 0-08 (Same as: l 14:00: Colace) (Do Not Crush) Metoprolol 2015-10 No Metoprolol M emoria succinate 0-08 succinate l ER 14:00: ER, 25 mg, Route: PO, Daily, 07/23/16 9:00:00 CDT, Duration: 30 day, Stop date: 08/21/16 9:00:00 REGULATORY PRODUCT MANAGER Triiodothyr 2015-10 No Notes: [place] jeannette onine 0-08 (Same as: l 14:00: Cytomel) metoprolol 2015-10 No Notes: [facility] extended 0-08 (Same as: l release 14:00: Toprol XL) Herm rashaad Do Not Crush Finasteride 2015-10 No 5 mg, 1 Mem oria 0-08 tab, l 14:00: Route: PO, Jim Drug form: TAB, Daily, Dosing Weight 81.2, kg, Start date: 07/23/16 9:00:00 CDT, Duration: 30 day, Stop date: 08/21/16 9:00:00 REGULATORY PRODUCT MANAGER Vitamin B 2015-10 No Notes: Memori a [...] Duration: 30 day, Stop date: 08/21/16 9:00:00 REGULATORY PRODUCT MANAGER Docusate 2015-10 No Notes: [facility] 0-08 (Same as: l 14:00: Colace) Jim (Do Not Crush) Metoprolol 2015-10 No Metoprolol M emoria succinate 0-08 succinate l ER 14:00: ER, 25 mg, Jim Route: PO, Daily, 07/23/16 9:00:00 CDT, Duration: 30 day, Stop date: 08/21/16 9:00:00 REGULATORY PRODUCT MANAGER Triiodothyr 2015-10 No Notes: [place] jeannette onine 0-08 (Same as: l 14:00: Cytomel) [place] metoprolol 2015-10 No Notes: [facility] extended 0-08 (Same as: l release 14:00: Toprol XL) Herm rashaad Do Not Crush Finasteride 2015-10 No 5 mg, 1 Mem oria 0-08 tab, l 14:00: Route: PO, [place] 00 Drug form: TAB, Daily, Dosing Weight 81.2, kg, Start date: 07/23/16 9:00:00 CDT, Duration: 30 day, Stop date: 08/21/16 9:00:00 REGULATORY PRODUCT MANAGER Vitamin B 2015-10 No Notes: Memori a [...] Duration: 30 day, Stop date: 08/21/16 9:00:00 REGULATORY PRODUCT MANAGER Docusate 2015-10 No Notes: [facility]oria 0-08 (Same as: l 14:00: Colace) Jim 00 (Do Not Crush) acetaminoph 2015-10 Yes 100.4 F, M emoria en 325 mg 0-08 # 30 tab, l oral tablet 13:04: 0 Juan Jose n 00 Refill(s) baclofen 2015-10 Yes 10 mg = 1 M emoria mg oral 0-08 tab, PO, l tablet 13:04: Q8H-05, [place] 00 PRN as needed for muscle spasm, [...] 13:04: 0 Juan Jose n 00 Refill(s) acetaminoph 2015-10 Yes 100.4 F, M [...] 30 MG Oral tab, 0 Tablet Refill(s) baclofen 2015-10 Yes 10 mg = 1 M emoria mg oral 0-08 tab, PO, l tablet 13:04: Q8H-05, [place] 00 PRN as needed for muscle spasm, [...] 0-08 tab, PO, l tablet 13:04: Q8H-05, [place] 00 PRN as needed for muscle spasm, [...] a 0-08 cap, l 02:00: Route: PO, Jim 00 Drug form: CAP, Bedtime, Dosing Weight 81.2, kg, Start date: 07/22/16 21:00:00 CDT, Duration: 30 day, Stop date: 08/20/16 21:00:00 CDT Flomax 2015-10 No 0.4 mg, 1 Memori a 0-08 cap, l 02:00: Route: PO, [place] 00 Drug form: CAP, Bedtime, Dosing Weight 81.2, kg, Start date: 07/22/16 21:00:00 CDT, Duration: 30 day, Stop date: 08/20/16 21:00:00 CDT Flomax 2015- No 0.4 mg, 1 Memori a 0-08 cap, l 02:00: Route: PO, Jim 00 Drug form: CAP, Bedtime, Dosing Weight 81.2, kg, Start date: 07/22/16 21:00:00 CDT, Duration: 30 day, Stop date: 08/20/16 21:00:00 CDT Flomax 2015- No 0.4 mg, 1 Memori a 0-08 cap, l 02:00: Route: PO, [place] 00 Drug form: CAP, Bedtime, Dosing Weight 81.2, kg, Start date: 07/22/16 21:00:00 CDT, Duration: 30 day, Stop date: 08/20/16 21:00:00 CDT Flomax 2015-10 No 0.4 mg, 1 Memori a 0-08 cap, l 02:00: Route: PO, Jim 00 Drug form: CAP, Bedtime, Dosing Weight 81.2, kg, Start date: 07/22/16 21:00:00 CDT, Duration: 30 day, Stop date: 08/20/16 21:00:00 CDT Enoxaparin 2015-10 No Notes: [facility]or ia 0-07 (Same as: l 23:00: Lovenox) Enoxaparin 2015-10 No Notes: [facility]or ia 0-07 (Same as: l 23:00: Lovenox) Jim 00 Enoxaparin 2015-10 No Notes: Memor ia 0-07 (Same as: l 23:00: Lovenox) Jim 00 Enoxaparin 2015-10 No Notes: [facility] ia 0-07 (Same as: l 23:00: Lovenox) Enoxaparin 2015-10 No Notes: [facility]or ia 0-07 (Same as: l 23:00: Lovenox) Jim 00 Baclofen 2015-10 No Notes: [facility]oria 0-07 (Same [...] 0-07 tab, l 22:32: Route: PO, Jim 00 Drug form: TAB, Q4H, Dosing Weight 81.2, kg, PRN Pain Score 1-3, Start date: 07/22/16 17:32:00 CDT, Duration: 30 day, Stop date: 08/21/16 17:31:00 REGULATORY PRODUCT MANAGER Tramadol 2015-10 No 50 mg, 1 [facility] 0-07 tab, l 22:32: Route: PO, Drug form: TAB, Q4H, Dosing Weight 81.2, kg, PRN Pain Score 1-3, Start date: 07/22/16 17:32:00 CDT, Duration: 30 day, Stop date: 08/21/16 17:31:00 REGULATORY PRODUCT MANAGER Tramadol 2015-10 No 50 mg, 1 [facility] 0-07 tab, l 22:32: Route: PO, Drug form: TAB, Q4H, Dosing Weight 81.2, kg, PRN Pain Score 1-3, Start date: 07/22/16 17:32:00 CDT, Duration: 30 day, Stop date: 08/21/16 17:31:00 REGULATORY PRODUCT MANAGER Tramadol 2015-10 No 50 mg, 1 [facility] 0-07 tab, l 22:32: Route: PO, Drug form: TAB, Q4H, Dosing Weight 81.2, kg, PRN Pain Score 1-3, Start date: 07/22/16 17:32:00 CDT, Duration: 30 day, Stop date: 08/21/16 17:31:00 REGULATORY PRODUCT MANAGER Tramadol 2015-10 No 50 mg, 1 [facility] ia 0-07 tab, l 22:32: Route: PO, [place] 00 Drug form: TAB, Q4H, Dosing Weight 81.2, kg, PRN Pain Score 1-3, Start date: 07/22/16 17:32:00 CDT, Duration: 30 day, Stop date: 08/21/16 17:31:00 REGULATORY PRODUCT MANAGER Acetaminoph 2015-10 No Notes: [place] jeannette en 325 MG / 0-07 (Same as: l Hydrocodone 22:23: Moselle Rashmi nn Bitartrate 00 325/5) Do 5 MG Oral not exceed Tablet 4gm/day of acetaminop hen. Acetaminoph 2015-10 No Notes: Do M emoria en 0-07 not exceed l 22:23: 4 gm/day. Jim 00 (Same as: Tylenol) Ondansetron 2015-10 No Notes: [place] jeannette 0-07 (Same as: l 22:23: Zofran) [place] 00 MEDICATION WASTE Product Size: 4 mg Product Wasted: ___ mg Morphine 2015-10 No Notes: Memoria 0-07 (Same l 22:23: as:MORPhin [place] 00 e Sulfate) Acetaminoph 2015-10 No Notes: [place] jeannette en 325 MG / 0-07 (Same as: l Hydrocodone 22:23: Mos[place] Rashmi nn Bitartrate 00 325/5) Do 5 MG Oral not exceed Tablet 4gm/day of acetaminop hen. Acetaminoph 2015-10 No Notes: Do M emoria en 0-07 not exceed l 22:23: 4 gm/day. Jim 00 (Same as: Tylenol) Ondansetron 2015-10 No Notes: [place] jeannette 0-07 (Same as: l 22:23: Zofran) [place] 00 MEDICATION WASTE Product Size: 4 mg Product Wasted: ___ mg Morphine 2015-10 No Notes: Memoria 0-07 (Same l 22:23: as:MORPhin Jim 00 e Sulfate) Acetaminoph 2015-10 No Notes: [place] jeannette en 325 MG / 0-07 (Same as: l Hydrocodone 22:23: Moselle Rashmi nn Bitartrate 00 325/5) Do 5 [...] Notes: Memoria 0-07 (Same l 22:23: as:MORPhin [place] 00 e Sulfate) Acetaminoph 2015-10 No Notes: [place] jeannette en 325 MG / 0-07 (Same as: l Hydrocodone 22:23: Moselle Rashmi nn Bitartrate 00 325/5) Do 5 MG Oral not exceed Tablet 4gm/day of acetaminop hen. Acetaminoph 2015-10 No Notes: Do M emoria en 0-07 not exceed l 22:23: 4 gm/day. [place] 00 (Same as: Tylenol) Ondansetron 2015-10 No Notes: [place] jeannette 0-07 (Same as: l 22:23: Zofran) [place] 00 MEDICATION WASTE Product Size: 4 mg Product Wasted: ___ mg Morphine 2015- No Notes: [facility]oria 0-07 (Same l 22:23: as:MORPhin [place] 00 e Sulfate) Acetaminoph 2015-10 No Notes: [place] jeannette en 325 MG / 0-07 (Same as: l Hydrocodone 22:23: Mos[place] Rashmi nn Bitartrate 00 325/5) Do 5 MG Oral not exceed Tablet 4gm/day of acetaminop hen. Acetaminoph 2015-10 No Notes: Do M emoria en 0-07 not exceed l 22:23: 4 gm/day. [place] 00 (Same as: Tylenol) Ondansetron 2015-10 No Notes: [place] jeannette 0-07 (Same as: l 22:23: Zofran) Jim 00 MEDICATION WASTE Product Size: 4 mg Product Wasted: ___ mg Morphine 2015-10 No Notes: [facility]oria 0-07 (Same l 22:23: as:MORPhin [place] 00 e Sulfate) liothyronin 2015-10 Yes 5 Memori a e 5 mcg 0-07 microgram l oral tablet 22:03: = 1 tab, [place] 00 PO, Daily, # 30 tab, 0 Refill(s) Aspirin 2015-10 Yes 81 mg = 1 [facility] ia Enteric 0-07 tab, PO, l Coated 81 22:03: Daily, 0 Herm rashaad mg oral 00 Refill(s) delayed release tablet [...] tab, PO, l tablet 22:03: Daily, # [place] 00 30 tab, 0 Refill(s) Vitamin 2015-10 [...] l Coated 81 22:03: Daily, 0 Herm rashaad mg oral 00 Refill(s) delayed release tablet [...] l Coated 81 22:03: Daily, 0 Herm rashaad mg oral 00 Refill(s) delayed release tablet [...] l Coated 81 22:03: Daily, 0 Herm rashaad mg oral 00 Refill(s) delayed release tablet [...] l Coated 81 22:03: Daily, 0 Herm rashaad mg oral 00 Refill(s) delayed release tablet [...] by mouth ity of tablet 13:44: daily. [place] [facility] vitamin Yes 1000ug Take 1,000 Un mariama B-12 3-22 mcg by ity of (VITAMIN 13:44: mouth [place] B-12) 1,000 33 daily. Medica l mcg tablet Branch cholecalcif Yes 1000U Take 1,000 [facility] marylin, 3-22 Units by ity of vitamin D3, 13:44: mouth [place] (VITAMIN 33 daily. Medical D3) 1,000 Branch unit tablet LACTOBACILL 2016 Yes Take by Uni vers US 3-22 mouth ity of RHAMNOSUS 13:44: daily. [place] GG 33 Medical (CULTURELLE Branch ORAL) atorvastati Yes 10mg Take 10 mg Univers n (LIPITOR) 3-22 by mouth ity of 10 mg 13:44: daily. [place] tablet 33 Medical Branch ERGOCALCIFE Yes 1000U Take 1,000 Univers ROL, 3-22 Units by ity of VITAMIN D2, 13:44: mouth. [place] (VITAMIN D 33 Medical ORAL) Branch tamsulosin Yes [id number] .4mg Take 1 Cap Univers (FLOMAX) 3-22 by mouth ity of 0.4 mg 24 00:00: daily. [place] hr capsule 00 Medical Branch levothyroxi Yes [id number] 88ug Take 1 Tab Univers ne 3-22 by mouth ity of (SYNTHROID) 00:00: every [place] 88 mcg 00 morning. Medical tablet Branch metoprolol Yes [id number] 25mg Take 1 Tab Univers succinate 1-21 by mouth ity of XL (TOPROL 00:00: daily. [place] XL) 25 mg 00 Medical 24 hr Branch tablet cyclobenzap Yes [id number] 5mg Take 1 Tab Univers rine 1-21 [...] Immunizations Ordered Filled Immunization Date Status Comments [facility] e Immunization Name Name SARS-COV-2 COVID-19 2021-07-14 Completed Unive rsity of PFIZER VACCINE 00:00:00 [facility] SARS-COV-2 COVID-19 2020-12-29 Completed Unive rsity of PFIZER VACCINE 00:00:00 [facility] SARS-COV-2 COVID-19 2020-12-08 Completed Unive rsity of PFIZER VACCINE 00:00:00 [facility] Vital Signs Vital Name Observation Time Observation Value Comments Source HEIGHT 2023-02-19 14:00:00 167.8 cm WEIGHT 2023-02-19 14:00:00 54 kg HEIGHT 2023-02-19 14:00:00 167.8 cm WEIGHT 2023-02-19 14:00:00 54 kg Heart Rate 2022-09-25 17:15:54 [facility] [place] Systolic (mm Hg) 2022-09-25 17:15:28 [place] [facility] [place] Diastolic (mm Hg) 2022-09-25 17:15:28 [facility] [place] Temperature Oral (F) 2022-09-25 17:15:14 98 F [facility] [place] Temperature Oral (F) 2022-09-24 10:07:56 98 F [facility] Height 2022-09-21 21:15:00 5 [ft_i] [facility] [place] Weight 2022-09-21 21:15:00 [facility] [place] Height 2022-09-19 19:33:00 167.64 cm [facility] BMI Calculated 2022-09-19 19:33:00 Memori al Jim Weight 2022-09-19 19:33:00 [facility] Heart Rate 2022-09-19 13:37:01 [facility] [place] Respitory Rate 2022-09-19 13:37:01 Memori al Jim Temperature Oral (F) 2022-09-19 13:36:53 97.7 F [facility] [place] Systolic (mm Hg) 2022-09-19 13:36:06 [place] rial Jim Diastolic (mm Hg) 2022-09-19 13:36:06 Mem orial Jim Heart Rate 2022-09-19 13:36:06 [facility] [place] Systolic (mm Hg) 2022-09-19 10:21:00 [place] rial Jim Diastolic (mm Hg) 2022-09-19 10:21:00 Mem orial Jim Respitory Rate 2022-09-19 10:21:00 [facility] [place] Heart Rate 2022-09-19 10:21:00 [facility] [place] Systolic (mm Hg) 2022-09-19 07:52:00 [place] rial Jim Diastolic (mm Hg) 2022-09-19 07:52:00 Mem orial Jim Temperature Oral (F) 2022-09-19 06:35:00 97.7 F [facility] [place] Respitory Rate 2022-09-19 06:35:00 [facility] [place] Temperature Oral (F) 2022-09-19 02:10:46 97.9 F [facility] [place] Height 2022-09-17 02:47:00 167.64 cm [facility] [place] Weight 2022-09-17 02:47:00 [facility] BMI Calculated 2022-09-17 02:47:00 Memori al Jim Height 2022-09-16 05:00:00 167.64 cm [facility] [place] BMI Calculated 2022-09-16 05:00:00 [facility] [place] Weight 2022-09-16 05:00:00 [facility] [place] Heart Rate 2022-07-05 13:17:22 [facility] Jim Systolic (mm Hg) 2022-07-05 13:16:48 [place] [facility] [place] Diastolic (mm Hg) 2022-07-05 13:16:48 Mem orial Jim Heart Rate 2022-07-05 13:16:48 [facility] [place] Temperature Oral (F) 2022-07-05 13:16:38 98.5 F [facility] [place] Heart Rate 2022-07-05 10:43:57 [facility] Jim Respitory Rate 2022-07-05 10:43:57 Memori al Jim Systolic (mm Hg) 2022-07-05 10:43:21 [place] rial Jim Diastolic (mm Hg) 2022-07-05 10:43:21 [facility] [place] Temperature Oral (F) 2022-07-05 10:43:16 98 F [facility] Jim Respitory Rate 2022-07-05 04:18:09 [facility] [place] Systolic (mm Hg) 2022-07-05 04:17:55 [place] rial Jim Diastolic (mm Hg) 2022-07-05 04:17:55 [facility] [place] Temperature Oral (F) 2022-07-05 04:17:48 97.5 F [facility] Jim Respitory Rate 2022-07-05 00:20:41 Memori al Jim Temperature Oral (F) 2022-06-20 08:43:00 97.2 F [facility] [place] Respitory Rate 2022-06-20 08:00:00 Memori al Jim Systolic (mm Hg) 2022-06-20 08:00:00 [place] [facility] [place] Diastolic (mm Hg) 2022-06-20 08:00:00 Mem orial Jim Respitory Rate 2022-06-20 07:00:00 Memori al Jim Systolic (mm Hg) 2022-06-20 07:00:00 [place] [facility] [place] Diastolic (mm Hg) 2022-06-20 07:00:00 [facility] [place] Respitory Rate 2022-06-20 06:00:00 [facility] [place] Systolic (mm Hg) 2022-06-20 06:00:00 [place] rial [place] Diastolic (mm Hg) 2022-06-20 06:00:00 Mem orial Jim Temperature Oral (F) 2022-06-20 04:25:00 98.7 F [facility] Temperature Oral (F) 2022-06-20 00:45:00 98.5 F [facility] Height 2022-06-18 20:22:00 185.42 cm [facility] [place] Weight 2022-06-18 20:22:00 [facility] [place] BMI Calculated 2022-06-18 20:22:00 [facility] [place] Heart Rate 2022-06-18 07:51:00 [facility] Temperature Oral (F) 2017-11-17 14:00:00 99 F [facility] Heart Rate 2017-11-17 14:00:00 [facility] Systolic (mm Hg) 2017-11-17 14:00:00 [place] rial Jim Diastolic (mm Hg) 2017-11-17 14:00:00 [facility] [place] Temperature Oral (F) 2017-11-17 10:04:00 98.2 F [facility] [place] Respitory Rate 2017-11-17 10:04:00 [facility] [place] Heart Rate 2017-11-17 10:04:00 [facility] Jim Systolic (mm Hg) 2017-11-17 10:04:00 [place] Diastolic (mm Hg) 2017-11-17 10:04:00 Mem orial Jim Systolic (mm Hg) 2017-11-17 06:04:00 [place] rial Jim Diastolic (mm Hg) 2017-11-17 06:04:00 [facility] [place] Respitory Rate 2017-11-17 06:04:00 [facility] [place] Temperature Oral (F) 2017-11-17 06:04:00 98 F [facility] [place] Heart Rate 2017-11-17 06:04:00 [facility] Ijm Respitory Rate 2017-11-17 02:00:00 Memori al Jim Weight 2017-11-15 16:51:00 [facility] [place] BMI Calculated 2017-11-15 16:51:00 Memori al Jim Height 2017-11-15 16:51:00 177.8 cm [facility] [place] Respitory Rate 2016-07-23 19:00:00 Memori al Jim Systolic (mm Hg) 2016-07-23 18:00:00 [place] rial Jim Diastolic (mm Hg) 2016-07-23 18:00:00 [facility] [place] Respitory Rate 2016-07-23 18:00:00 Memori al Jim Systolic (mm Hg) 2016-07-23 17:00:00 [place] Diastolic (mm Hg) 2016-07-23 17:00:00 Mem orial Jim Respitory Rate 2016-07-23 17:00:00 Memori al Jim Systolic (mm Hg) 2016-07-23 16:00:00 [place] Diastolic (mm Hg) 2016-07-23 16:00:00 Mem orial Jim Height 2016-07-22 21:31:00 177.8 cm [facility] Weight 2016-07-22 21:31:00 [facility] BMI Calculated 2016-07-22 21:31:00 Memori al Jim Temperature Oral (F) 2016-07-22 21:30:00 97.8 F [facility] Procedures Procedure Date / Time Performing Clinician Source Performed SARS-COV-2 COVID-19 2021-07-14 18:56:33 [facility] VACCINE,0.3ML,IM (PFIZER) [facility] Cataract [facility] surgery<sup>1</sup> ESWL - Extracorporeal [facility] ermann shock wave lithotripsy of bile duct calculus [facility] Hydro[facility]lect[facility] Encounters Start End Encounter Admission Attending Care Care Encounter Source Date/Time Date/Time Type Type Clinicians Facility Department ID 2023-02-13 Outpatient [facility] [id number] [place] 16:03:03 [id number] [facility] 2023-02-08 Outpatient [facility] [id number] [place] 08:27:19 [id number] [facility] 2022-12-23 Outpatient [facility] [id number] [place] 09:06:41 [id number] [facility] 2022-09-15 Outpatient [facility] [id number] [place] 22:48:04 [id number] [facility] 2022-06-22 Outpatient [facility] [id number] [place] 10:23:11 [id number] [facility] 2021-11-18 Outpatient MARY ALICE WHEAT [id number] 17:57:54 Michelle ayoub 2023-02-19 2023-02-24 [facility] [id number] [facility] 04:24:00 17:05:00 MIKKI 2022-09-16 2022-09-25 Inpatient [facility] [id number] Memoria 04:59:00 21:35:[address] 2022-09-16 2022-09-25 Inpatient IE [facility] [id number] Memoria 04:59:00 21:35:[address] 2022-09-16 2022-09-25 Inpatient Renee [facility] MED [id number] [facility] 11:16:00 15:35:00 JOHNATHAN 2022-09-15 2022-09-25 Outpatient Deon [facility] [id number] 22:59:00 15:35:00 Johnathan Moralez 2022-09-15 2022-09-15 Outpatient Braulio [facility] [id number] 22:59:00 22:59:00 Shifa 35 2022-06-18 2022-07-05 Inpatient nullFlavo [facility] [id number] Memoria 07:51:00 15:35:[address] 2022-06-18 2022-07-05 Inpatient nullFlavo [facility] [id number] Memoria 07:51:00 15:35:[address] 2022-06-18 2022-07-05 [facility] 11:24:00 10:35:00 JOHNATHAN 2022-06-18 2022-07-05 Outpatient Deon [facility] [id number] 02:51:00 10:35:00 Johnathan Moralez 2022 2022 Outpatient RICHAR [facility] [id number] UT 07:45:00 07:45:00 [facility] 2022-06-18 2022-06-18 Outpatient Brian [facility] [id number] 02:51:00 02:51:00 Sherita Starks 2021-07-14 2021-07-14 Outpatient [facility] [id number] Univers 13:30:00 13:30:00 ity [facility] 2021-07-14 2021-07-14 Imm/Inj Nurse, Adc Pob Immunization [facility] [id number] Univers 13:18:54 13:28:54 [facility]1.13 .[id number] Wojciech Sun [id number] Ia dical [address] 2017-11-16 2017-11-17 [id number] [facility] 21:28:00 16:18:00 n alyssa Fernandez 00 l [facility] 2017-11-16 2017-11-17 [id number] Memoria 21:28:00 16:18:00 n alyssa Fernandez 00 l [facility] 2017-11-16 2017-11-17 Outpatient Vy [facility] [id number] 15:28:00 10:18:00 Jose Geovanni Tariq 2016-08-05 2016-08-06 Outpt Diag nullFlavo [facility] [id number] Memoria 16:42:00 04:59:00 Services r Outpatient 00 l [facility] 2016-08-05 2016-08-06 Outpt Diag nullFlavo [facility] [id number] Memoria 16:42:00 04:59:00 Services r Outpatient 00 l [facility] 2016-08-05 2016-08-05 Outpatient Darnell, [id number]. [id number] 11:42:00 23:59:00 Julia [id number] Frederic 3.615.30 5.30 2016-08-05 2016-08-05 Outpatient [facility] [id number] Memoria 10:30:00 10:30:00 00 [facility] 2016-08-05 2016-08-05 Outpatient [facility] [id number] Memoria 10:30:00 10:30:00 00 l [place] 2016-07-22 2016-07-23 [facility] [id number] Memoria 20:59:00 19:15:00 r [place] 81 [facility] 2016-07-22 2016-07-23 Inpatient nullFlavo [facility] [id number] Memoria 20:59:00 19:15:00 r [place] 81 [facility] 2016-07-22 2016-07-23 [facility] [id number] 15:59:00 14:15:00 Jermaine 81 Results Test Description Test Time Test Comments Results Result Comments Source BLOOD CULTURE 2023-02-24 14:00:50 Test Item Value Reference Range Interpretation Comme nts CULTURE (BEAKER) (test code = 1095) No growth in 5 days The specimen volume collected for this blood culture was below the optimum (10 mL per bottle or 20 mL total). Use of lower volumes may adversely affect recovery and/or detection times of some organisms.BLOOD [id number] 13:00:50 Test Item Value Reference Range Interpretation Comments CULTURE (BEAKER) (test No growth in 5 days code = 1095) The specimen volume collected for this blood culture was below the optimum (10 mL per bottle or 20 mL total). Use of lower volumes may adversely affect recovery and/or detection times of some organisms.BASIC METABOLIC PANEL 2023-02-24 10:37:08 Test Item Value Reference Range Interpretation Comments SODIUM (BEAKER) 137 meq/L 136-145 (test code = 381) POTASSIUM 4.3 meq/L 3.5-5.1 (BEAKER) (test code = 379) CHLORIDE (BEAKER) 105 meq/L 98-107 (test code = 382) CO2 (BEAKER) 24 meq/L 22-29 (test code = 355) BLOOD UREA 28 mg/dL 7-21 H NITROGEN (BEAKER) (test code = 354) CREATININE 0.63 mg/dL 0.57-1.25 (BEAKER) (test code = 358) GLUCOSE RANDOM 90 mg/dL 70-105 (BEAKER) (test code = 652) CALCIUM (BEAKER) 8.7 mg/dL 8.4-10.2 (test code = 697) EGFR (BEAKER) 90 Interpretatio n of eGFR (test code = mL/min/1.73 values Stage De scription 1092) sq m Result G1 Lida l or high >=90 G2 Mildly decreased 60-89 G3a Mildl y to moderately 45-5 9 G3b Moderately to s everely 30-44 G4 Severl y decreased 15-29 G5 Kidney failure <15Reported eGF R is based on the CKD-EPI 2020 equation that d oes not use a race coefficientEsti mated GFR is not as accur ate as Creatinine Pia toscano in predicting glom erular filtration rate . Estimated GFR is not appl icable for dialysis patien ts Prn Physical Therapist ID - [id number] 10:36:28 Test Item Value Reference Range Interpretation Comments MAGNESIUM (BEAKER) (test code = 2.2 mg/dL 1.6-2.6 627) Prn Physical Therapist ID - mmCBC W/PLT COUNT & AUTO [id number] 10:20:08 Test Item Value Reference Range Interpretation Comments WHITE BLOOD CELL COUNT (BEAKER) 17.6 K/ L 3.5-10.5 H (test code = 775) RED BLOOD CELL COUNT (BEAKER) 4.17 M/ L 4.63-6.08 L (test code = 761) HEMOGLOBIN (BEAKER) (test code = 13.8 GM/DL 13.7-17.5 410) HEMATOCRIT (BEAKER) (test code = 40.7 % 40.1-51.0 411) MEAN CORPUSCULAR VOLUME (BEAKER) 98 fL 79-92 H (test code = 753) MEAN CORPUSCULAR HEMOGLOBIN 33.1 pg 25.7-32.2 H (BEAKER) (test code = 751) MEAN CORPUSCULAR HEMOGLOBIN CONC 33.9 GM/DL 32.3-36.5 (BEAKER) (test code = 752) RED CELL DISTRIBUTION WIDTH 13.1 % 11.6-14.4 (BEAKER) (test code = 412) PLATELET COUNT (BEAKER) (test 317 K/CU MM 150-450 code = 756) MEAN PLATELET VOLUME (BEAKER) 9.1 fL 9.4-12.4 L (test code = 754) NUCLEATED RED BLOOD CELLS 0 /100 WBC 0-0 (BEAKER) (test code = 413) NEUTROPHILS RELATIVE PERCENT 87 % (BEAKER) (test code = 429) LYMPHOCYTES RELATIVE PERCENT 5 % (BEAKER) (test code = 430) MONOCYTES RELATIVE PERCENT 7 % (BEAKER) (test code = 431) EOSINOPHILS RELATIVE PERCENT 0 % (BEAKER) (test code = 432) BASOPHILS RELATIVE PERCENT 0 % (BEAKER) (test code = 437) NEUTROPHILS ABSOLUTE COUNT 15.38 K/ L 1.78-5.38 H (BEAKER) (test code = 670) LYMPHOCYTES ABSOLUTE COUNT 0.81 K/ L 1.32-3.57 L (BEAKER) (test code = 414) MONOCYTES ABSOLUTE COUNT (BEAKER) 1.20 K/ L 0.30-0.82 H (test code = 415) EOSINOPHILS ABSOLUTE COUNT 0.00 K/ L 0.04-0.54 L (BEAKER) (test code = 416) BASOPHILS ABSOLUTE COUNT (BEAKER) 0.03 K/ L 0.01-0.08 (test code = 417) IMMATURE GRANULOCYTES-RELATIVE 1.10 % 0.00-1.00 H PERCENT (BEAKER) (test code = 2801) BASIC METABOLIC [id number] 08:04:07 Test Item Value Reference Range Interpretation Comments SODIUM (BEAKER) 134 meq/L 136-145 L (test code = 381) POTASSIUM 4.9 meq/L 3.5-5.1 Specimen modera tely (BEAKER) (test hemolyzed code = 379) CHLORIDE (BEAKER) 106 meq/L 98-107 (test code = 382) CO2 (BEAKER) 19 meq/L 22-29 L (test code = 355) BLOOD UREA 27 mg/dL 7-21 H NITROGEN (BEAKER) (test code = 354) CREATININE 0.61 mg/dL 0.57-1.25 Specimen modera tely (BEAKER) (test hemolyzed code = 358) GLUCOSE RANDOM 83 mg/dL 70-105 (BEAKER) (test code = 652) CALCIUM (BEAKER) 8.0 mg/dL 8.4-10.2 L (test code = 697) EGFR (BEAKER) 91 Interpretatio n of eGFR (test code = mL/min/1.73 values Stage De scription 1092) sq m Result G1 Lida l or high >=90 G2 Mildly decreased 60-89 G3a Mildl y to moderately 45-5 9 G3b Moderately to s everely 30-44 G4 Severl y decreased 15-29 G5 Kidney failure <15Reported eGF R is based on the CKD-EPI 2020 equation that d oes not use a race coefficientEsti mated GFR is not as accur ate as Creatinine Pia everton in predicting glom erular filtration rate . Estimated GFR is not appl icable for dialysis patien ts Prn Physical Therapist ID - [id number] 08:03:13 Test Item Value Reference Range Interpretation Comments MAGNESIUM (BEAKER) 2.1 mg/dL 1.6-2.6 Specimen moderately (test code = 627) hemolyzed Prn Physical Therapist ID - ADMINCBC W/PLT COUNT & AUTO [id number] 06:49:55 Test Item Value Reference Range Interpretation Comments WHITE BLOOD CELL COUNT (BEAKER) 16.2 K/ L 3.5-10.5 H (test code = 775) RED BLOOD CELL COUNT (BEAKER) 3.84 M/ L 4.63-6.08 L (test code = 761) HEMOGLOBIN (BEAKER) (test code = 12.5 GM/DL 13.7-17.5 L 410) HEMATOCRIT (BEAKER) (test code = 37.4 % 40.1-51.0 L 411) MEAN CORPUSCULAR VOLUME (BEAKER) 97 fL 79-92 H (test code = 753) MEAN CORPUSCULAR HEMOGLOBIN 32.6 pg 25.7-32.2 H (BEAKER) (test code = 751) MEAN CORPUSCULAR HEMOGLOBIN CONC 33.4 GM/DL 32.3-36.5 (BEAKER) (test code = 752) RED CELL DISTRIBUTION WIDTH 13.1 % 11.6-14.4 (BEAKER) (test code = 412) PLATELET COUNT (BEAKER) (test 292 K/CU MM 150-450 code = 756) MEAN PLATELET VOLUME (BEAKER) 9.0 fL 9.4-12.4 L (test code = 754) NUCLEATED RED BLOOD CELLS 0 /100 WBC 0-0 (BEAKER) (test code = 413) NEUTROPHILS RELATIVE PERCENT 88 % (BEAKER) (test code = 429) LYMPHOCYTES RELATIVE PERCENT 4 % (BEAKER) (test code = 430) MONOCYTES RELATIVE PERCENT 6 % (BEAKER) (test code = 431) EOSINOPHILS RELATIVE PERCENT 0 % (BEAKER) (test code = 432) BASOPHILS RELATIVE PERCENT 0 % (BEAKER) (test code = 437) NEUTROPHILS ABSOLUTE COUNT 14.30 K/ L 1.78-5.38 H (BEAKER) (test code = 670) LYMPHOCYTES ABSOLUTE COUNT 0.68 K/ L 1.32-3.57 L (BEAKER) (test code = 414) MONOCYTES ABSOLUTE COUNT (BEAKER) 0.98 K/ L 0.30-0.82 H (test code = 415) EOSINOPHILS ABSOLUTE COUNT 0.00 K/ L 0.04-0.54 L (BEAKER) (test code = 416) BASOPHILS ABSOLUTE COUNT (BEAKER) 0.03 K/ L 0.01-0.08 (test code = 417) IMMATURE GRANULOCYTES-RELATIVE 1.10 % 0.00-1.00 H PERCENT (BEAKER) (test code = 2801) CT, SPINE, CERVICAL, [id number] 17:02:00Unlisted Reason for Exam - Click Yes and Enter Reason Below->YesUnlisted Reason for Exam->evaluate prevertebral edema noted on OSH non-contrast [facility] : 1935 Sex: MFINAL REPORT CT, SPINE, CERVICAL, CONTRAST CLINICAL HISTORY: Unlisted Reason for Examevaluate prevertebral edema noted on OSH non-contrast CT Multiple axial images of the cervical spinewere obtained without IV contrast. Coronal and sagittal reformats were created. This exam was performed according to our departmental dose-optimization program, which includes automated exposure control, adjustment of the mA and/or kV according to patient size and/or use of the iterative reconstruction technique. Comparisons: CT cervical spine February 14, 2023 Cervical spine:Prevertebral soft tissue swelling noted on prior CT cervical spine has resolved. Dextrorotary curvature of the cervical spine is stable. Biconcave endplate concave deformity and vertebral body wedging deformity of C7, T1, T2, T5 areunchanged. There is anterior wedging deformity of T6 also present on the current scan. No suspiciousosseous lesion. Alignment is not significantly changed compared to prior exam. Disc osteophyte complexes with uncovertebral and facet arthrosis contribute to C2-3 mild left neural foraminal stenosis, C3-4 moderate to severe left and moderate right neural foraminal stenosis with moderate central spinalcanal stenosis, C4-5 severe bilateral neural foraminal stenosis and mild central spinal canal stenosis, C5-6 moderate bilateral neural foraminal stenosis and mild central spinal canal stenosis, C6-7 mild to moderate bilateral neural foraminal stenosis and mild central spinal canal stenosis, C7-T1 mildbilateral neural foraminal stenosis and mild central spinal canal stenosis. IMPRESSION: Resolution of prevertebral soft tissue swelling seen on prior examination. Vertebral body wedging deformities of C7, T1, T2 and T5 are stable. Additional T6 vertebral body wedging deformity is visualized on the current study. Fractures are of indeterminate age. Consider correlation with MRI imaging as clinically warranted. Signed: Paul Patel MDReport Verified Date/Time: 02/22/2023 17:02:17 [facility] METABOLIC [id number] 10:51:44 Test Item Value Reference Range Interpretation Comments SODIUM (BEAKER) 141 meq/L 136-145 (test code = 381) POTASSIUM 3.2 meq/L 3.5-5.1 L Specimen slight ly (BEAKER) (test hemolyzed code = 379) CHLORIDE (BEAKER) 115 meq/L 98-107 H (test code = 382) CO2 (BEAKER) 19 meq/L 22-29 L (test code = 355) BLOOD UREA 23 mg/dL 7-21 H NITROGEN (BEAKER) (test code = 354) CREATININE 0.49 mg/dL 0.57-1.25 L Specimen slight ly (BEAKER) (test hemolyzed code = 358) GLUCOSE RANDOM 55 mg/dL 70-105 L (BEAKER) (test code = 652) CALCIUM (BEAKER) 6.7 mg/dL 8.4-10.2 L Discordant from previous (test code = 697) results. C linical correlation sug gested. EGFR (BEAKER) 96 Interpretatio n of eGFR (test code = mL/min/1.73 values Stage De scription 1092) sq m Result G1 Lida l or high >=90 G2 Mildly decreased 60-89 G3a Mildl y to moderately 45-5 9 G3b Moderately to s everely 30-44 G4 Severl y decreased 15-29 G5 Kidney failure <15Reported eGF R is based on the CKD-EPI 2020 equation that d oes not use a race coefficientEsti mated GFR is not as accur ate as Creatinine Pia toscano in predicting glom erular filtration rate . Estimated GFR is not appl icable for dialysis patien ts Prn Physical Therapist ID - [id number] 10:38:31 Test Item Value Reference Range Interpretation Comments MAGNESIUM (BEAKER) 1.8 mg/dL 1.6-2.6 Specimen slightly (test code = 627) hemolyzed Prn Physical Therapist ID - JSFL, ESOPH, SWALLOW FUNCTION, WITH CINE OR [id number] 10:33:00Reason for exam:->dysphagia [facility] 1935 Sex: MFINAL REPORT Modified barium swallow exam with speech pathology service CLINICAL HISTORY: dysphagia IMPRESSION: Please see the speech pathology service report for details. Barium contrast of multiple consistencies is given to the patient to swallow. Fluoroscopic observation is performed during swallowing. Fluoro time: 0.62 minutes Number of images: 1 cine clip Signed: Rashaad Wrighteport Verified Date/Time: 02/22/2023 10:33:27 Reading Location: [address] Ortho Consult Reading Room CBC W/PLT COUNT & AUTO [id number] 10:25:50 Test Item Value Reference Range Interpretation Comments WHITE BLOOD CELL COUNT (BEAKER) 14.6 K/ L 3.5-10.5 H (test code = 775) RED BLOOD CELL COUNT (BEAKER) 2.88 M/ L 4.63-6.08 L (test code = 761) HEMOGLOBIN (BEAKER) (test code = 9.7 GM/DL 13.7-17.5 L 410) HEMATOCRIT (BEAKER) (test code = 28.6 % 40.1-51.0 L 411) MEAN CORPUSCULAR VOLUME (BEAKER) 99 fL 79-92 H (test code = 753) MEAN CORPUSCULAR HEMOGLOBIN 33.7 pg 25.7-32.2 H (BEAKER) (test code = 751) MEAN CORPUSCULAR HEMOGLOBIN CONC 33.9 GM/DL 32.3-36.5 (BEAKER) (test code = 752) RED CELL DISTRIBUTION WIDTH 13.2 % 11.6-14.4 (BEAKER) (test code = 412) PLATELET COUNT (BEAKER) (test 236 K/CU MM 150-450 code = 756) MEAN PLATELET VOLUME (BEAKER) 9.4 fL 9.4-12.4 (test code = 754) NUCLEATED RED BLOOD CELLS 0 /100 WBC 0-0 (BEAKER) (test code = 413) NEUTROPHILS RELATIVE PERCENT 87 % (BEAKER) (test code = 429) LYMPHOCYTES RELATIVE PERCENT 4 % (BEAKER) (test code = 430) MONOCYTES RELATIVE PERCENT 8 % (BEAKER) (test code = 431) EOSINOPHILS RELATIVE PERCENT 0 % (BEAKER) (test code = 432) BASOPHILS RELATIVE PERCENT 0 % (BEAKER) (test code = 437) NEUTROPHILS ABSOLUTE COUNT 12.68 K/ L 1.78-5.38 H (BEAKER) (test code = 670) LYMPHOCYTES ABSOLUTE COUNT 0.55 K/ L 1.32-3.57 L (BEAKER) (test code = 414) MONOCYTES ABSOLUTE COUNT (BEAKER) 1.20 K/ L 0.30-0.82 H (test code = 415) EOSINOPHILS ABSOLUTE COUNT 0.00 K/ L 0.04-0.54 L (BEAKER) (test code = 416) BASOPHILS ABSOLUTE COUNT (BEAKER) 0.01 K/ L 0.01-0.08 (test code = 417) IMMATURE GRANULOCYTES-RELATIVE 1.00 % 0.00-1.00 PERCENT (BEAKER) (test code = 2801) MRSA [id number] 08:53:34 Test Item Value Reference Range Interpretation Comments CULTURE (BEAKER) A 1+ Methicil justice resistant (test code = 1095) Staphyloc occus aureus CBC W/PLT COUNT & AUTO [id number] 06:10:56 Test Item Value Reference Range Interpretation Comments WHITE BLOOD CELL COUNT (BEAKER) 15.8 K/ L 3.5-10.5 H (test code = 775) RED BLOOD CELL COUNT (BEAKER) 3.70 M/ L 4.63-6.08 L (test code = 761) HEMOGLOBIN (BEAKER) (test code = 12.4 GM/DL 13.7-17.5 L 410) HEMATOCRIT (BEAKER) (test code = 37.1 % 40.1-51.0 L 411) MEAN CORPUSCULAR VOLUME (BEAKER) 100 fL 79-92 H (test code = 753) MEAN CORPUSCULAR HEMOGLOBIN 33.5 pg 25.7-32.2 H (BEAKER) (test code = 751) MEAN CORPUSCULAR HEMOGLOBIN CONC 33.4 GM/DL 32.3-36.5 (BEAKER) (test code = 752) RED CELL DISTRIBUTION WIDTH 13.2 % 11.6-14.4 (BEAKER) (test code = 412) PLATELET COUNT (BEAKER) (test 319 K/CU MM 150-450 code = 756) MEAN PLATELET VOLUME (BEAKER) 9.3 fL 9.4-12.4 L (test code = 754) NUCLEATED RED BLOOD CELLS 0 /100 WBC 0-0 (BEAKER) (test code = 413) NEUTROPHILS RELATIVE PERCENT 90 % (BEAKER) (test code = 429) LYMPHOCYTES RELATIVE PERCENT 4 % (BEAKER) (test code = 430) MONOCYTES RELATIVE PERCENT 5 % (BEAKER) (test code = 431) EOSINOPHILS RELATIVE PERCENT 0 % (BEAKER) (test code = 432) BASOPHILS RELATIVE PERCENT 0 % (BEAKER) (test code = 437) NEUTROPHILS ABSOLUTE COUNT 14.22 K/ L 1.78-5.38 H (BEAKER) (test code = 670) LYMPHOCYTES ABSOLUTE COUNT 0.57 K/ L 1.32-3.57 L (BEAKER) (test code = 414) MONOCYTES ABSOLUTE COUNT (BEAKER) 0.84 K/ L 0.30-0.82 H (test code = 415) EOSINOPHILS ABSOLUTE COUNT 0.00 K/ L 0.04-0.54 L (BEAKER) (test code = 416) BASOPHILS ABSOLUTE COUNT (BEAKER) 0.02 K/ L 0.01-0.08 (test code = 417) IMMATURE GRANULOCYTES-RELATIVE 0.70 % 0.00-1.00 PERCENT (BEAKER) (test code = 2801) [id number] 07:47:42 Test Item Value Reference Range Interpretation Comments PROCALCITONIN (BEAKER) (test code = < ng/mL <0.05 3036) SEPSIS RISK (ng/mL)Low: 0.05-0.50Intermediate: 0.51-2.00High: >=2.01BASIC METABOLIC [id number] 06:25:17 Test Item Value Reference Range Interpretation Comments SODIUM (BEAKER) 138 meq/L 136-145 (test code = 381) POTASSIUM 4.0 meq/L 3.5-5.1 (BEAKER) (test code = 379) CHLORIDE (BEAKER) 107 meq/L 98-107 (test code = 382) CO2 (BEAKER) 22 meq/L 22-29 (test code = 355) BLOOD UREA 36 mg/dL 7-21 H NITROGEN (BEAKER) (test code = 354) CREATININE 0.66 mg/dL 0.57-1.25 (BEAKER) (test code = 358) GLUCOSE RANDOM 91 mg/dL 70-105 (BEAKER) (test code = 652) CALCIUM (BEAKER) 8.0 mg/dL 8.4-10.2 L (test code = 697) EGFR (BEAKER) 89 Interpretatio n of eGFR (test code = mL/min/1.73 values Stage De scription 1092) sq m Result G1 Lida l or high >=90 G2 Mildly decreased 60-89 G3a Mildl y to moderately 45-5 9 G3b Moderately to s everely 30-44 G4 Severl y decreased 15-29 G5 Kidney failure <15Reported eGF R is based on the CKD-EPI 2020 equation that d oes not use a race coefficientEsti mated GFR is not as accur ate as Creatinine Pia everton in predicting glom erular filtration rate . Estimated GFR is not appl icable for dialysis patien ts Prn Physical Therapist ID - ADMINB-TYPE NATRIURETIC FACTOR (BNP)2023-02-20 06:24:17 Test Item Value Reference Range Interpretation Comments B-TYPE NATRIURETIC PEPTIDE (BEAKER) 103 pg/mL 0-100 H (test code = 700) Prn Physical Therapist ID - MARCOCBC W/PLT COUNT & AUTO [id number] 05:52:22 Test Item Value Reference Range Interpretation Comments WHITE BLOOD CELL COUNT (BEAKER) 14.8 K/ L 3.5-10.5 H (test code = 775) RED BLOOD CELL COUNT (BEAKER) 3.73 M/ L 4.63-6.08 L (test code = 761) HEMOGLOBIN (BEAKER) (test code = 12.2 GM/DL 13.7-17.5 L 410) HEMATOCRIT (BEAKER) (test code = 36.1 % 40.1-51.0 L 411) MEAN CORPUSCULAR VOLUME (BEAKER) 97 fL 79-92 H (test code = 753) MEAN CORPUSCULAR HEMOGLOBIN 32.7 pg 25.7-32.2 H (BEAKER) (test code = 751) MEAN CORPUSCULAR HEMOGLOBIN CONC 33.8 GM/DL 32.3-36.5 (BEAKER) (test code = 752) RED CELL DISTRIBUTION WIDTH 13.1 % 11.6-14.4 (BEAKER) (test code = 412) PLATELET COUNT (BEAKER) (test 340 K/CU MM 150-450 code = 756) MEAN PLATELET VOLUME (BEAKER) 9.1 fL 9.4-12.4 L (test code = 754) NUCLEATED RED BLOOD CELLS 0 /100 WBC 0-0 (BEAKER) (test code = 413) NEUTROPHILS RELATIVE PERCENT 92 % (BEAKER) (test code = 429) LYMPHOCYTES RELATIVE PERCENT 3 % (BEAKER) (test code = 430) MONOCYTES RELATIVE PERCENT 5 % (BEAKER) (test code = 431) EOSINOPHILS RELATIVE PERCENT 0 % (BEAKER) (test code = 432) BASOPHILS RELATIVE PERCENT 0 % (BEAKER) (test code = 437) NEUTROPHILS ABSOLUTE COUNT 13.58 K/ L 1.78-5.38 H (BEAKER) (test code = 670) LYMPHOCYTES ABSOLUTE COUNT 0.40 K/ L 1.32-3.57 L (BEAKER) (test code = 414) MONOCYTES ABSOLUTE COUNT (BEAKER) 0.68 K/ L 0.30-0.82 (test code = 415) EOSINOPHILS ABSOLUTE COUNT 0.00 K/ L 0.04-0.54 L (BEAKER) (test code = 416) BASOPHILS ABSOLUTE COUNT (BEAKER) 0.02 K/ L 0.01-0.08 (test code = 417) IMMATURE GRANULOCYTES-RELATIVE 0.70 % 0.00-1.00 PERCENT (BEAKER) (test code = 2801) RAD, CHEST, 1 VIEW, NON [id number] 17:06:00Reason for exam:- >pneumoniaShould this be performed at the bedside?->Yes [facility] 1935 Sex: MFINAL REPORT INDICATION: pneumonia COMPARISON: None TECHNIQUE: Single frontal view of the chest. FINDINGS: Lungs and pleura: Clear lungs. No effusion.Heart and mediastinum: Normal heartsize. Unremarkable mediastinal contours.Osseous structures: Displaced fracture of the left humeral neck.Other: None. IMPRESSION: Displaced fracture of the left humerus.No evidence of pneumonia. Signed:Julia Ramirez Verified Date/Time: 02/19/2023 17:06:34 B-TYPE NATRIURETIC FACTOR (BNP)2023-02-19 13:09:14 Test Item Value Reference Range Interpretation Comments B-TYPE NATRIURETIC PEPTIDE (BEAKER) 102 pg/mL 0-100 H (test code = 700) Prn Physical Therapist ID - MARCOCOMPREHENSIVE METABOLIC [id number] 10:12:11 Test Item Value Reference Range Interpretation Comments TOTAL PROTEIN 5.8 gm/dL 6.0-8.3 L Specimen sligh tly (BEAKER) (test hemolyzed code = 770) ALBUMIN (BEAKER) 3.2 g/dL 3.5-5.0 L Specimen sl ightly (test code = 1145) hemolyzed ALKALINE 61 U/L 40-150 PHOSPHATASE (BEAKER) (test code = 346) BILIRUBIN TOTAL 1.2 mg/dL 0.2-1.2 Specimen sli ghtly (BEAKER) (test hemolyzed code = 377) SODIUM (BEAKER) 138 meq/L 136-145 (test code = 381) POTASSIUM (BEAKER) 4.0 meq/L 3.5-5.1 Specimen slightly (test code = 379) hemolyzed CHLORIDE (BEAKER) 105 meq/L 98-107 (test code = 382) CO2 (BEAKER) (test 25 meq/L 22-29 code = 355) BLOOD UREA 34 mg/dL 7-21 H NITROGEN (BEAKER) (test code = 354) CREATININE 0.64 mg/dL 0.57-1.25 Specimen slight ly (BEAKER) (test hemolyzed code = 358) GLUCOSE RANDOM 88 mg/dL 70-105 (BEAKER) (test code = 652) CALCIUM (BEAKER) 8.5 mg/dL 8.4-10.2 (test code = 697) AST (SGOT) 15 U/L 5-34 Specimen slight ly (BEAKER) (test hemolyzed code = 353) ALT (SGPT) 15 U/L 6-55 Specimen slight ly (BEAKER) (test hemolyzed code = 347) EGFR (BEAKER) 90 Interpretatio n of eGFR (test code = 1092) mL/min/1.[address] age Description sq m Result G1 Lida l or high >=90 G2 Mildly decreased 60-89 G3a Mildl y to moderately 45-5 9 G3b Moderately to s everely 30-44 G4 Severl y decreased 15-29 G5 Kidney failure <15Reported eGF R is based on the CKD-EPI 2020 equation that d oes not use a race coefficientEsti mated GFR is not as accur ate as Creatinine Pia [place] in predicting glom erular filtration rate . Estimated GFR is not appl icable for dialysis patien ts Prn Physical Therapist ID - MARCOPROTHROMBIN [id number] 09:50:58 Test Item Value Reference Range Interpretation Comments PROTIME (BEAKER) (test code = 14.3 seconds 11.9-14.2 H 759) INR (BEAKER) (test code = 370) 1.13 <=5.90 RECOMMENDED COUMADIN/WARFARIN INR THERAPY RANGESSTANDARD DOSE: 2.0 - 3.0 Includes: PROPHYLAXIS for venous thrombosis, systemic embolization; TREATMENT for venous thrombosis and/or pulmonary embolus.HIGH RISK: Target INR is 2.5-3.5 for patients with mechanical heart valves.CBC W/PLT COUNT & AUTO [id number] 09:26:05 Test Item Value Reference Range Interpretation Comments WHITE BLOOD CELL COUNT (BEAKER) 14.3 K/ L 3.5-10.5 H (test code = 775) RED BLOOD CELL COUNT (BEAKER) 3.94 M/ L 4.63-6.08 L (test code = 761) HEMOGLOBIN (BEAKER) (test code = 12.7 GM/DL 13.7-17.5 L 410) HEMATOCRIT (BEAKER) (test code = 37.4 % 40.1-51.0 L 411) MEAN CORPUSCULAR VOLUME (BEAKER) 95 fL 79-92 H (test code = 753) MEAN CORPUSCULAR HEMOGLOBIN 32.2 pg 25.7-32.2 (BEAKER) (test code = 751) MEAN CORPUSCULAR HEMOGLOBIN CONC 34.0 GM/DL 32.3-36.5 (BEAKER) (test code = 752) RED CELL DISTRIBUTION WIDTH 13.0 % 11.6-14.4 (BEAKER) (test code = 412) PLATELET COUNT (BEAKER) (test 368 K/CU MM 150-450 code = 756) MEAN PLATELET VOLUME (BEAKER) 8.9 fL 9.4-12.4 L (test code = 754) NUCLEATED RED BLOOD CELLS 0 /100 WBC 0-0 (BEAKER) (test code = 413) NEUTROPHILS RELATIVE PERCENT 91 % (BEAKER) (test code = 429) LYMPHOCYTES RELATIVE PERCENT 3 % (BEAKER) (test code = 430) MONOCYTES RELATIVE PERCENT 5 % (BEAKER) (test code = 431) EOSINOPHILS RELATIVE PERCENT 0 % (BEAKER) (test code = 432) BASOPHILS RELATIVE PERCENT 0 % (BEAKER) (test code = 437) NEUTROPHILS ABSOLUTE COUNT 12.95 K/ L 1.78-5.38 H (BEAKER) (test code = 670) LYMPHOCYTES ABSOLUTE COUNT 0.49 K/ L 1.32-3.57 L (BEAKER) (test code = 414) MONOCYTES ABSOLUTE COUNT (BEAKER) 0.77 K/ L 0.30-0.82 (test code = 415) EOSINOPHILS ABSOLUTE COUNT 0.00 K/ L 0.04-0.54 L (BEAKER) (test code = 416) BASOPHILS ABSOLUTE COUNT (BEAKER) 0.02 K/ L 0.01-0.08 (test code = 417) IMMATURE GRANULOCYTES-RELATIVE 0.60 % 0.00-1.00 PERCENT (BEAKER) (test code = 2801) POINT OF [id number] 18:10:00 Test Item Value Reference Range Interpretation Comments Glucose POC (test code = Glucose POC) 106 70-99 [facility]2022-12-11 18:10:00 Test Item Value Reference Range Interpretation Comments Glucose POC (test code = Glucose POC) 106 70-99 [facility]2022-12-11 18:10:00 Test Item Value Reference Range Interpretation Comments Glucose POC (test code = Glucose POC) 106 70-99 [facility]IfrufynSCJGNIGET6907-42-01 11:01:00 Test Item Value Reference Range Interpretation Comments Glucose Lvl (test code = Glucose Lvl) 98 70-99 [facility] SoutheastKhzxbbrDUKKYSCPG1127-44-30 11:01:00 Test Item Value Reference Range Interpretation Comments BUN (test code = BUN) 17 7-22 [facility] SoutheastSpnurwaRDJDHKQMG0646-31-05 11:01:00 Test Item Value Reference Range Interpretation Comments Creatinine Lvl (test code = Creatinine 0.64 0.50-1.40 Lvl) [facility] SoutheastSywpvbgJWLNVDSMH5486-55-77 11:01:00 Test Item Value Reference Range Interpretation Comments Sodium Lvl (test code = Sodium Lvl) 135 135-145 [facility] SoutheastRtquecaKCWCQTLRZ5133-06-92 11:01:00 Test Item Value Reference Range Interpretation Comments Potassium Lvl (test code = Potassium 4.3 3.5-5.1 Lvl) [facility] SoutheastZhipwnpPUYZGMWOE7081-92-54 11:01:00 Test Item Value Reference Range Interpretation Comments Chloride Lvl (test code = Chloride Lvl) 107 95-109 [facility] SoutheastEmfckxpISKILTXSP9118-66-21 11:01:00 Test Item Value Reference Range Interpretation Comments CO2 (test code = CO2) 21 24-32 [facility] SoutheastJbogltpKLYNRADYI8188-79-44 11:01:00 Test Item Value Reference Range Interpretation Comments AGAP (test code = AGAP) 11.3 10.0-20.0 [facility] SoutheastNffwpbpLZUVQHBGH8331-80-73 11:01:00 Test Item Value Reference Range Interpretation Comments Calcium Lvl (test code = Calcium Lvl) 8.8 8.5-10.5 [facility] SoutheastQtornqfVCHVMCBDG6528-98-83 11:01:00 Test Item Value Reference Range Interpretation Comments eGFR (test code = eGFR) 91 [facility]IclygykLYJPEUKBCI8845-53-03 11:01:00 Test Item Value Reference Range Interpretation Comments WBC (test code = WBC) 12.4 3.7-10.4 [facility] HospitalUvcbwxvVNAGYOUKYJ6510-87-12 11:01:00 Test Item Value Reference Range Interpretation Comments RBC (test code = RBC) 3.69 4.70-6.10 [facility] HospitalSnknciuPVBSTPNMWA9763-52-68 11:01:00 Test Item Value Reference Range Interpretation Comments Hgb (test code = Hgb) 12.1 14.0-18.0 [facility] HospitalJyiwfryWJVVNCWUKA9950-66-76 11:01:00 Test Item Value Reference Range Interpretation Comments Hct (test code = Hct) 36.7 42.0-54.0 [facility] HospitalIaltqztTFLQGNDQPE1268-40-13 11:01:00 Test Item Value Reference Range Interpretation Comments MCV (test code = MCV) 99.5 80.0-94.0 [facility] HospitalSqtymzoHBKMHLCRIT9006-63-27 11:01:00 Test Item Value Reference Range Interpretation Comments MCH (test code = MCH) 32.9 pg 27.0-31.0 [facility] HospitalQmkfirlEHOLEHGYEH0941-02-22 11:01:00 Test Item Value Reference Range Interpretation Comments MCHC (test code = MCHC) 33.0 32.0-36.0 [facility] HospitalGzlfgxsHTOMYYEVIS6873-55-04 11:01:00 Test Item Value Reference Range Interpretation Comments RDW (test code = RDW) 13.1 11.5-14.5 [facility] HospitalRlqhzsuLOIMSXKISK4588-67-76 11:01:00 Test Item Value Reference Range Interpretation Comments Platelet (test code = Platelet) 333 133-450 [facility] HospitalJtgsvnaKMPLCRONVO3887-64-72 11:01:00 Test Item Value Reference Range Interpretation Comments MPV (test code = MPV) 8.4 7.4-10.4 [facility] HospitalDllzusdCSADHUSBRG6063-92-54 11:01:00 Test Item Value Reference Range Interpretation Comments Segs (test code = Segs) 75.9 45.0-75.0 [facility] HospitalRkcoxjiJVILDWMQUE9797-80-78 11:01:00 Test Item Value Reference Range Interpretation Comments Lymphocytes (test code = Lymphocytes) 10.4 20.0-40.0 [place] 765532-12-11 11:01:00 Test Item Value Reference Range Interpretation Comments Monocytes (test code = Monocytes) 12.5 2.0-12.0 [facility] HospitalIrltioeOMELVLWIDV8727-82-74 11:01:00 Test Item Value Reference Range Interpretation Comments Eosinophils (test code = 0.5 See_Comment [A utomated message] The Eosinophils) system which ge nerated this result tra nsmitted reference range : <=4.0. The reference r mirela was not used to int erpret this result as normal/abnormal . [facility] HospitalPpfbgqbLDAGZRGUTE8103-43-79 11:01:00 Test Item Value Reference Range Interpretation Comments Basophils (test code = 0.7 See_Comment [Aut omated message] The Basophils) system which ge nerated this result tra nsmitted reference range : <=1.0. The reference r mirela was not used to int erpret this result as normal/abnormal . [facility] HospitalSpkyajlXKKLDKNPSY6913-47-38 11:01:00 Test Item Value Reference Range Interpretation Comments Neutrophils # (test code = Neutrophils 9.5 1.5-8.1 #) [facility] HospitalUuknmqnKZRUZQPAVV6554-33-97 11:01:00 Test Item Value Reference Range Interpretation Comments Lymphocytes # (test code = Lymphocytes 1.3 1.0-5.5 #) [facility] HospitalZkeiitwCWATXQICTJ1981-20-86 11:01:00 Test Item Value Reference Range Interpretation Comments Monocytes # (test code 1.6 See_Comment [Aut omated message] The = Monocytes #) system which generated this result tra nsmitted reference range : <=0.8. The reference r mirela was not used to int erpret this result as normal/abnormal . [facility] HospitalQbnhwakCRRVGXFYHM5855-29-01 11:01:00 Test Item Value Reference Range Interpretation Comments Eosinophils # (test code 0.1 See_Comment [A utomated message] The = Eosinophils #) system whic h generated this result tra nsmitted reference range : <=0.5. The reference r mirela was not used to int erpret this result as normal/abnormal . [facility] HospitalWmviyeqHQMWJPVHIW7719-58-21 11:01:00 Test Item Value Reference Range Interpretation Comments Basophils # (test code 0.1 See_Comment [Aut omated message] The = Basophils #) system which generated this result tra nsmitted reference range : <=0.2. The reference r mirela was not used to int erpret this result as normal/abnormal . [facility] SoutheastYfzquvuIYWLTHUXD1142-81-19 11:01:00 Test Item Value Reference Range Interpretation Comments Glucose Lvl (test code = Glucose Lvl) 98 70-99 [facility] SoutheastJxprtlaAUZAOKJIL0783-67-73 11:01:00 Test Item Value Reference Range Interpretation Comments BUN (test code = BUN) 17 7-22 [place] 471482-12-11 11:01:00 Test Item Value Reference Range Interpretation Comments Creatinine Lvl (test code = Creatinine 0.64 0.50-1.40 Lvl) [facility] SoutheastYiqllqvDZTDJWQJO4072-85-25 11:01:00 Test Item Value Reference Range Interpretation Comments Sodium Lvl (test code = Sodium Lvl) 135 135-145 [facility] SoutheastSpnfohcRVGNBHMCG9892-25-02 11:01:00 Test Item Value Reference Range Interpretation Comments Potassium Lvl (test code = Potassium 4.3 3.5-5.1 Lvl) [facility] SoutheastVlwzeihCRNSUXMTH0608-21-68 11:01:00 Test Item Value Reference Range Interpretation Comments Chloride Lvl (test code = Chloride Lvl) 107 95-109 [facility] SoutheastOvkgbfgKBWJDMDID8137-09-67 11:01:00 Test Item Value Reference Range Interpretation Comments CO2 (test code = CO2) 21 24-32 [facility] SoutheastJrnveftFGFMNVUDB6204-57-56 11:01:00 Test Item Value Reference Range Interpretation Comments AGAP (test code = AGAP) 11.3 10.0-20.0 [facility] SoutheastXowokydORZXHSXMZ0321-43-54 11:01:00 Test Item Value Reference Range Interpretation Comments Calcium Lvl (test code = Calcium Lvl) 8.8 8.5-10.5 [facility] SoutheastFpenmboAKWERGFPP0173-63-24 11:01:00 Test Item Value Reference Range Interpretation Comments eGFR (test code = eGFR) 91 [facility] HospitalBhuweguKYSFEEONYZ1023-26-32 11:01:00 Test Item Value Reference Range Interpretation Comments WBC (test code = WBC) 12.4 3.7-10.4 [facility] HospitalRmwdwhpCNKGVYQPTH8329-13-93 11:01:00 Test Item Value Reference Range Interpretation Comments RBC (test code = RBC) 3.69 4.70-6.10 [facility] HospitalQhxmzgcRWGKQGZBCJ3534-39-54 11:01:00 Test Item Value Reference Range Interpretation Comments Hgb (test code = Hgb) 12.1 14.0-18.0 [place] 765532-12-11 11:01:00 Test Item Value Reference Range Interpretation Comments Hct (test code = Hct) 36.7 42.0-54.0 [place] 765532-12-11 11:01:00 Test Item Value Reference Range Interpretation Comments MCV (test code = MCV) 99.5 80.0-94.0 [place] 765532-12-11 11:01:00 Test Item Value Reference Range Interpretation Comments MCH (test code = MCH) 32.9 pg 27.0-31.0 [place] 765532-12-11 11:01:00 Test Item Value Reference Range Interpretation Comments MCHC (test code = MCHC) 33.0 32.0-36.0 [facility] HospitalMsrpxegBXMVFZXXIA0173-25-32 11:01:00 Test Item Value Reference Range Interpretation Comments RDW (test code = RDW) 13.1 11.5-14.5 [place] 765532-12-11 11:01:00 Test Item Value Reference Range Interpretation Comments Platelet (test code = Platelet) 333 133-450 [facility] HospitalKfmqopwVBLUXAEBAS9384-26-63 11:01:00 Test Item Value Reference Range Interpretation Comments MPV (test code = MPV) 8.4 7.4-10.4 [place] 765532-12-11 11:01:00 Test Item Value Reference Range Interpretation Comments Segs (test code = Segs) 75.9 45.0-75.0 [facility] HospitalYacatltMPEROSVGWM2076-83-33 11:01:00 Test Item Value Reference Range Interpretation Comments Lymphocytes (test code = Lymphocytes) 10.4 20.0-40.0 [place] 765532-12-11 11:01:00 Test Item Value Reference Range Interpretation Comments Monocytes (test code = Monocytes) 12.5 2.0-12.0 [place] 765532-12-11 11:01:00 Test Item Value Reference Range Interpretation Comments Eosinophils (test code = 0.5 See_Comment [A utomated message] The Eosinophils) system which ge nerated this result tra nsmitted reference range : <=4.0. The reference r mirela was not used to int erpret this result as normal/abnormal . [place] 765532-12-11 11:01:00 Test Item Value Reference Range Interpretation Comments Basophils (test code = 0.7 See_Comment [Aut omated message] The Basophils) system which ge nerated this result tra nsmitted reference range : <=1.0. The reference r mirela was not used to int erpret this result as normal/abnormal . [place] 765532-12-11 11:01:00 Test Item Value Reference Range Interpretation Comments Neutrophils # (test code = Neutrophils 9.5 1.5-8.1 #) [facility] HospitalSlbecolHCADDLPRUB1167-05-72 11:01:00 Test Item Value Reference Range Interpretation Comments Lymphocytes # (test code = Lymphocytes 1.3 1.0-5.5 #) [facility] HospitalGzvgjtfUOAMOURBYS8469-49-53 11:01:00 Test Item Value Reference Range Interpretation Comments Monocytes # (test code 1.6 See_Comment [Aut omated message] The = Monocytes #) system which generated this result tra nsmitted reference range : <=0.8. The reference r mirela was not used to int erpret this result as normal/abnormal . [place] 765532-12-11 11:01:00 Test Item Value Reference Range Interpretation Comments Eosinophils # (test code 0.1 See_Comment [A utomated message] The = Eosinophils #) system whic h generated this result tra nsmitted reference range : <=0.5. The reference r mirela was not used to int erpret this result as normal/abnormal . [facility] HospitalWkyzrsdHKKUWLQINX3252-00-03 11:01:00 Test Item Value Reference Range Interpretation Comments Basophils # (test code 0.1 See_Comment [Aut omated message] The = Basophils #) system which generated this result tra nsmitted reference range : <=0.2. The reference r mirela was not used to int erpret this result as normal/abnormal . [facility] SoutheastLfjbgcfIJJGYKIGC7562-35-66 11:01:00 Test Item Value Reference Range Interpretation Comments Glucose Lvl (test code = Glucose Lvl) 98 70-99 [facility] SoutheastHqamzyuKJZOJWUOP7940-83-05 11:01:00 Test Item Value Reference Range Interpretation Comments BUN (test code = BUN) 17 7-22 [place] 471482-12-11 11:01:00 Test Item Value Reference Range Interpretation Comments Creatinine Lvl (test code = Creatinine 0.64 0.50-1.40 Lvl) [facility] SoutheastQtnztrfLLTCWHNCQ2716-27-69 11:01:00 Test Item Value Reference Range Interpretation Comments Sodium Lvl (test code = Sodium Lvl) 135 135-145 [facility] SoutheastEupwaouYNJDNBWZO8286-89-59 11:01:00 Test Item Value Reference Range Interpretation Comments Potassium Lvl (test code = Potassium 4.3 3.5-5.1 Lvl) [facility] SoutheastSbpgyviVJAUIRKSS1917-79-81 11:01:00 Test Item Value Reference Range Interpretation Comments Chloride Lvl (test code = Chloride Lvl) 107 95-109 [facility] SoutheastYdzenzcPOCAAOLEZ8841-59-78 11:01:00 Test Item Value Reference Range Interpretation Comments CO2 (test code = CO2) 21 24-32 [facility] SoutheastDripchpIWVIDPXRM6898-68-44 11:01:00 Test Item Value Reference Range Interpretation Comments AGAP (test code = AGAP) 11.3 10.0-20.0 [facility] SoutheastSwitfnaQCIMXIZKX9793-93-29 11:01:00 Test Item Value Reference Range Interpretation Comments Calcium Lvl (test code = Calcium Lvl) 8.8 8.5-10.5 [facility] SoutheastBwfytkhTVJHLDHBG7887-04-49 11:01:00 Test Item Value Reference Range Interpretation Comments eGFR (test code = eGFR) 91 [facility] HospitalHcwnfcwDVIYLEWKTV1429-75-03 11:01:00 Test Item Value Reference Range Interpretation Comments WBC (test code = WBC) 12.4 3.7-10.4 [facility] HospitalTbmlyeuQGKPXDRNNS4870-58-57 11:01:00 Test Item Value Reference Range Interpretation Comments RBC (test code = RBC) 3.69 4.70-6.10 [facility] HospitalJwnxleuAQVITTSLVQ3000-73-94 11:01:00 Test Item Value Reference Range Interpretation Comments Hgb (test code = Hgb) 12.1 14.0-18.0 [facility] HospitalFzmvnbyATXVHZBXFB3892-22-59 11:01:00 Test Item Value Reference Range Interpretation Comments Hct (test code = Hct) 36.7 42.0-54.0 [place] 765532-12-11 11:01:00 Test Item Value Reference Range Interpretation Comments MCV (test code = MCV) 99.5 80.0-94.0 [place] 765532-12-11 11:01:00 Test Item Value Reference Range Interpretation Comments MCH (test code = MCH) 32.9 pg 27.0-31.0 [place] 765532-12-11 11:01:00 Test Item Value Reference Range Interpretation Comments MCHC (test code = MCHC) 33.0 32.0-36.0 [place] 765532-12-11 11:01:00 Test Item Value Reference Range Interpretation Comments RDW (test code = RDW) 13.1 11.5-14.5 [place] 765532-12-11 11:01:00 Test Item Value Reference Range Interpretation Comments Platelet (test code = Platelet) 333 133-450 [facility] HospitalSauknszBBHDLNZLIZ8580-79-92 11:01:00 Test Item Value Reference Range Interpretation Comments MPV (test code = MPV) 8.4 7.4-10.4 [place] 765532-12-11 11:01:00 Test Item Value Reference Range Interpretation Comments Segs (test code = Segs) 75.9 45.0-75.0 [place] 765532-12-11 11:01:00 Test Item Value Reference Range Interpretation Comments Lymphocytes (test code = Lymphocytes) 10.4 20.0-40.0 [place] 765532-12-11 11:01:00 Test Item Value Reference Range Interpretation Comments Monocytes (test code = Monocytes) 12.5 2.0-12.0 [facility] HospitalByczhzfMVMQXKDIQQ9778-94-02 11:01:00 Test Item Value Reference Range Interpretation Comments Eosinophils (test code = 0.5 See_Comment [A utomated message] The Eosinophils) system which ge nerated this result tra nsmitted reference range : <=4.0. The reference r mirela was not used to int erpret this result as normal/abnormal . [facility] HospitalOzuspcvAXPZWADPFV1411-85-00 11:01:00 Test Item Value Reference Range Interpretation Comments Basophils (test code = 0.7 See_Comment [Aut omated message] The Basophils) system which ge nerated this result tra nsmitted reference range : <=1.0. The reference r mirela was not used to int erpret this result as normal/abnormal . [facility] HospitalGkbrbdiNZDFRGBARR2577-75-20 11:01:00 Test Item Value Reference Range Interpretation Comments Neutrophils # (test code = Neutrophils 9.5 1.5-8.1 #) [facility] HospitalKvhnsdoPINLMOVLAJ3336-63-91 11:01:00 Test Item Value Reference Range Interpretation Comments Lymphocytes # (test code = Lymphocytes 1.3 1.0-5.5 #) [place] 765532-12-11 11:01:00 Test Item Value Reference Range Interpretation Comments Monocytes # (test code 1.6 See_Comment [Aut omated message] The = Monocytes #) system which generated this result tra nsmitted reference range : <=0.8. The reference r mirela was not used to int erpret this result as normal/abnormal . [place] 765532-12-11 11:01:00 Test Item Value Reference Range Interpretation Comments Eosinophils # (test code 0.1 See_Comment [A utomated message] The = Eosinophils #) system whic h generated this result tra nsmitted reference range : <=0.5. The reference r mirela was not used to int erpret this result as normal/abnormal . [place] 765532-12-11 11:01:00 Test Item Value Reference Range Interpretation Comments Basophils # (test code 0.1 See_Comment [Aut omated message] The = Basophils #) system which generated this result tra nsmitted reference range : <=0.2. The reference r mirela was not used to int erpret this result as normal/abnormal . [place] 400582-12-10 12:03:00 Test Item Value Reference Range Interpretation Comments Gluc POC Comment 1 (test code Notified RN/MD = Gluc POC Comment 1) [address]12-10 12:03:00 Test Item Value Reference Range Interpretation Comments Gluc POC Comment 1 (test code Notified RN/MD = Gluc POC Comment 1) [address]12-10 12:03:00 Test Item Value Reference Range Interpretation Comments Gluc POC Comment 1 (test code Notified RN/MD = Gluc POC Comment 1) [place] 79054022-12-09 19:14:25 Test Item Value Reference Range Interpretation Comments RADRPT (test code PROCEDURE: Gastrostomy tube = RADRPT) placementAttending physician(s): Jean Paul Guevara MDFesonya/resident physician(s): Prudence Staton M.D.Pre-procedure diagnosis: Dysphagia - C2/C3 fxPost-procedure diagnosis: SameIndication: Nutritional supportAdditional relevant history: NoneCOMPARISON: NonePROCEDURE SUMMARY:- Gastrostomy tube placement under fluoroscopic guidanceIMPRESSION:Successfu l percutaneous placement of 20 [place] push-type gastrostomy tube.Plan: G-tube can be used [...] and agree with the report as written. [facility]VdjfyhiZLSINS6428[facility] 19:14:25 Test Item Value Reference Range Interpretation Comments RADRPT (test code PROCEDURE: Gastrostomy tube = RADRPT) placementAttending physician(s): Jean Paul Guevara MDFellow/resident physician(s): Prudence Staton M.D.Pre-procedure diagnosis: Dysphagia - C2/C3 fxPost-procedure diagnosis: SameIndication: Nutritional supportAdditional relevant history: NoneCOMPARISON: NonePROCEDURE SUMMARY:- Gastrostomy tube placement under fluoroscopic guidanceIMPRESSION:Successfu l percutaneous placement of 20 [place] push-type gastrostomy tube.Plan: G-tube can be used [...] and agree with the report as written. [facility]lineZpwrzdyERPWPJ6157-69-42 19:14:25 Test Item Value Reference Range Interpretation Comments RADRPT (test code PROCEDURE: Gastrostomy tube = RADRPT) placementAttending physician(s): Marcella Uriasllblake/resident physician(s): Prudence Staton M.D.Pre-procedure diagnosis: Dysphagia - C2/C3 fxPost-procedure diagnosis: SameIndication: Nutritional supportAdditional relevant history: NoneCOMPARISON: NonePROCEDURE SUMMARY:- Gastrostomy tube placement under fluoroscopic guidanceIMPRESSION:Successfu l percutaneous placement of 20 [place] push-type gastrostomy tube.Plan: G-tube can be used [...] and agree with the report as written. [place] 765532-12-09 12:27:00 Test Item Value Reference Range Interpretation Comments RBC Morph (test code = See Note 3(09/23/22 RBC Morph) 6:27 AM) [facility] HospitalNteupqhETPDTRGWGG6525-12-57 12:27:00 Test Item Value Reference Range Interpretation Comments Plt Morph (test code = Normal (09/23/22 6:27 Plt Morph) AM) [facility] HospitalUsfgelbSFFLRWDTPL1006-77-28 12:27:00 Test Item Value Reference Range Interpretation Comments RBC Morph (test code = See Note 3(09/23/22 RBC Morph) 6:27 AM) [facility] HospitalWhooabpXALCSWJPSS0616-14-73 12:27:00 Test Item Value Reference Range Interpretation Comments Plt Morph (test code = Normal (09/23/22 6:27 Plt Morph) AM) [facility] HospitalWxxhpyiFPYBAOLQEC0140-87-42 12:27:00 Test Item Value Reference Range Interpretation Comments RBC Morph (test code = See Note 3(09/23/22 RBC Morph) 6:27 AM) [facility] HospitalZohstpsIWUBTXUGXZ1541-23-05 12:27:00 Test Item Value Reference Range Interpretation Comments Plt Morph (test code = Normal (09/23/22 6:27 Plt Morph) AM) [facility] HospitalCasengo KWMTCOM7174-67-71 08:05:00 Test Item Value Reference Range Interpretation Comments ABO/Rh (test code = ABO/Rh) O POS [facility] ShorelineJenaValve Technology CJATYLG4716-42-25 08:05:00 Test Item Value Reference Range Interpretation Comments Antibody Scrn (test Negative (09/21/22 2:05 code = Antibody Scrn) AM) [facility] HospitalJhzdxnaRIDRZTGUPW8356-36-58 08:05:00 Test Item Value Reference Range Interpretation Comments PT (test code = PT) 13.4 s 12.0-14.7 [facility] HospitalPpvxmzgKAODKQKSUC4957-15-87 08:05:00 Test Item Value Reference Range Interpretation Comments INR (test code = INR) 1.03 1 0.85-1.17 [facility] HospitalEofelgfFEQOOQGWNX2973-06-88 08:05:00 Test Item Value Reference Range Interpretation Comments PTT (test code = PTT) 32.0 s 22.9-35.8 [facility] HospitalAzxaagzQGGPUZEYQS2698-26-63 08:05:00 Test Item Value Reference Range Interpretation Comments Macrocyte (test code = 1+ *ABN*(09/21/22 Macrocyte) 2:05 AM) [facility] CKHXDYW6998-79-29 08:05:00 Test Item Value Reference Range Interpretation Comments ABO/Rh (test code = ABO/Rh) O POS [facility] YFYAROI5696-23-28 08:05:00 Test Item Value Reference Range Interpretation Comments Antibody Scrn (test Negative (09/21/22 2:05 code = Antibody Scrn) AM) [facility] HospitalXccgzvoAFYPSHYEYB3083-94-76 08:05:00 Test Item Value Reference Range Interpretation Comments PT (test code = PT) 13.4 s 12.0-14.7 [facility] HospitalIarfqjeWLZIZTBGHG0253-64-71 08:05:00 Test Item Value Reference Range Interpretation Comments INR (test code = INR) 1.03 1 0.85-1.17 [facility] HospitalIgxpkcgSBCMROEVMQ1157-47-91 08:05:00 Test Item Value Reference Range Interpretation Comments PTT (test code = PTT) 32.0 s 22.9-35.8 [facility] HospitalEsnvnluFLAAJRRJAB3172-91-01 08:05:00 Test Item Value Reference Range Interpretation Comments Macrocyte (test code = 1+ *ABN*(09/21/22 Macrocyte) 2:05 AM) [facility] ESOQFMU5450-19-28 08:05:00 Test Item Value Reference Range Interpretation Comments ABO/Rh (test code = ABO/Rh) O POS [facility] FSZIUML1336-10-64 08:05:00 Test Item Value Reference Range Interpretation Comments Antibody Scrn (test Negative (09/21/22 2:05 code = Antibody Scrn) AM) [facility] HospitalYatokauMZSMYMWJNL0189-30-65 08:05:00 Test Item Value Reference Range Interpretation Comments PT (test code = PT) 13.4 s 12.0-14.7 [facility] HospitalGiucuknKPUJQZKSTW2358-36-91 08:05:00 Test Item Value Reference Range Interpretation Comments INR (test code = INR) 1.03 1 0.85-1.17 [facility] HospitalVayozvmNMJJAQPBTJ0407-63-06 08:05:00 Test Item Value Reference Range Interpretation Comments PTT (test code = PTT) 32.0 s 22.9-35.8 [facility] HospitalYkocmctTWMCCZCNZO8418-24-85 08:05:00 Test Item Value Reference Range Interpretation Comments Macrocyte (test code = 1+ *ABN*(09/21/22 Macrocyte) 2:05 AM) [facility]LqqcbzlCXACRQBHO1027-11-12 11:39:00 Test Item Value Reference Range Interpretation Comments Magnesium Lvl (test code = Magnesium 2.2 1.8-2.4 Lvl) [facility] SoutheastZyisyzuWZAXDBMWV0568-73-26 11:39:00 Test Item Value Reference Range Interpretation Comments Phosphorus (test code = Phosphorus) 2.6 2.5-4.5 [facility]UEHTZMG1442[facility]64-25 11:39:00 Test Item Value Reference Range Interpretation Comments Magnesium Lvl (test code = Magnesium 2.2 1.8-2.4 Lvl) [facility]LvhkcdvHNHANWWGJ6369-59-87 11:39:00 Test Item Value Reference Range Interpretation Comments Phosphorus (test code = Phosphorus) 2.6 2.5-4.5 [facility]QpdojnjEXEFLNMJY7233-76-21 11:39:00 Test Item Value Reference Range Interpretation Comments Magnesium Lvl (test code = Magnesium 2.2 1.8-2.4 Lvl) [facility]QywwtvqWICGDHGQK2300-01-50 11:39:00 Test Item Value Reference Range Interpretation Comments Phosphorus (test code = Phosphorus) 2.6 2.5-4.5 [place] [id number] 19:48:41 Test Item Value Reference Range Interpretation [...] burden suggests constipation. No evidence of obstruction. [place] 435322-12-05 19:48:41 Test Item Value Reference Range Interpretation [...] burden suggests constipation. No evidence of obstruction. [place] [id number] 19:48:41 Test Item Value Reference Range Interpretation [...] burden suggests constipation. No evidence of obstruction. [facility]MmpharqTXZHYPTDA9035-15-69 19:13:00 Test Item Value Reference Range Interpretation Comments Lactic Acid Lvl (test code = Lactic 1.6 0.5-2.2 Acid Lvl) [facility] SoutheastWegtzyxBGBSXGSJG6116-74-15 19:13:00 Test Item Value Reference Range Interpretation Comments Lactic Acid Lvl (test code = Lactic 1.6 0.5-2.2 Acid Lvl) [facility] SoutheastHelvexjIOSVEDXHD8346-74-25 19:13:00 Test Item Value Reference Range Interpretation Comments Lactic Acid Lvl (test code = Lactic 1.6 0.5-2.2 Acid Lvl) [place] [id number] 17:03:32 Test Item Value Reference Range Interpretation [...] folds and is not ejected. Residual remains. (PAS-5)Crossnore: Subglottic aspiration. Material passes below vocal folds and is not ejected from the airway despite patient attempt. (PAS-7).Pudding: Large residue, patient was unable to swallow.Other: None.IMPRESSION: 1. Laryngeal penetration and subglottic aspiration with thin and nectar barium consistency as described above.2. Large residual with pudding barium consistency as the patient was unable to swallow.3. Please also see detailed chart note by speech pathology. [place] [id number] 17:03:32 Test Item Value Reference Range Interpretation [...] folds and is not ejected. Residual remains. (PAS-5)Crossnore: Subglottic aspiration. Material passes below vocal folds and is not ejected from the airway despite patient attempt. (PAS-7).Pudding: Large residue, patient was unable to swallow.Other: None.IMPRESSION: 1. Laryngeal penetration and subglottic aspiration with thin and nectar barium consistency as described above.2. Large residual with pudding barium consistency as the patient was unable to swallow.3. Please also see detailed chart note by speech pathology. [facility]QmcaasiEAOBHV8133-38-81 17:03:32 Test Item Value Reference Range Interpretation [...] folds and is not ejected. Residual remains. (PAS-5)Crossnore: Subglottic aspiration. Material passes below vocal folds and is not ejected from the airway despite patient attempt. (PAS-7).Pudding: Large residue, patient was unable to swallow.Other: None.IMPRESSION: 1. Laryngeal penetration and subglottic aspiration with thin and nectar barium consistency as described above.2. Large residual with pudding barium consistency as the patient was unable to swallow.3. Please also see detailed chart note by speech pathology. [facility]2022-12-05 09:25:00 Test Item Value Reference Range Interpretation Comments Glucose Lvl (test code = Glucose Lvl) 55 70-99 [place] 326012-12-05 09:25:00 Test Item Value Reference Range Interpretation Comments BUN (test code = BUN) 17 7-22 [place] 326012-12-05 09:25:00 Test Item Value Reference Range Interpretation Comments Creatinine Lvl (test code = Creatinine 0.79 0.50-1.40 Lvl) [facility]2022-12-05 09:25:00 Test Item Value Reference Range Interpretation Comments Sodium Lvl (test code = Sodium Lvl) 142 135-145 [facility]2022-12-05 09:25:00 Test Item Value Reference Range Interpretation Comments Potassium Lvl (test code = Potassium 4.3 3.5-5.1 Lvl) [place] 326012-12-05 09:25:00 Test Item Value Reference Range Interpretation Comments Chloride Lvl (test code = Chloride Lvl) 112 95-109 [place] 326012-12-05 09:25:00 Test Item Value Reference Range Interpretation Comments CO2 (test code = CO2) 15 24-32 [place] 326012-12-05 09:25:00 Test Item Value Reference Range Interpretation Comments Calcium Lvl (test code = Calcium Lvl) 8.9 8.5-10.5 [place] 326012-12-05 09:25:00 Test Item Value Reference Range Interpretation Comments AGAP (test code = AGAP) 19.3 10.0-20.0 [place] 326012-12-05 09:25:00 Test Item Value Reference Range Interpretation Comments eGFR (test code = eGFR) 85 [place] 326012-12-05 09:25:00 Test Item Value Reference Range Interpretation Comments Magnesium Lvl (test code = Magnesium 2.4 1.8-2.4 Lvl) [place] 326012-12-05 09:25:00 Test Item Value Reference Range Interpretation Comments Phosphorus (test code = Phosphorus) 3.2 2.5-4.5 [place] [address]-12-05 09:25:00 Test Item Value Reference Range Interpretation Comments WBC (test code = WBC) 17.6 3.7-10.4 [place] 765532-12-05 09:25:00 Test Item Value Reference Range Interpretation Comments RBC (test code = RBC) 3.66 4.70-6.10 [place] [address]-12-05 09:25:00 Test Item Value Reference Range Interpretation Comments Hgb (test code = Hgb) 12.2 14.0-18.0 [place] [address]-12-05 09:25:00 Test Item Value Reference Range Interpretation Comments Hct (test code = Hct) 37.0 42.0-54.0 [place] [address]-12-05 09:25:00 Test Item Value Reference Range Interpretation Comments MCV (test code = MCV) 101.1 80.0-94.0 [address]12-05 09:25:00 Test Item Value Reference Range Interpretation Comments MCH (test code = MCH) 33.4 pg 27.0-31.0 [place] 765532-12-05 09:25:00 Test Item Value Reference Range Interpretation Comments MCHC (test code = MCHC) 33.1 32.0-36.0 [place] 765532-12-05 09:25:00 Test Item Value Reference Range Interpretation Comments RDW (test code = RDW) 13.0 11.5-14.5 [place] 765532-12-05 09:25:00 Test Item Value Reference Range Interpretation Comments Platelet (test code = Platelet) 296 133-450 [place] 765532-12-05 09:25:00 Test Item Value Reference Range Interpretation Comments MPV (test code = MPV) 8.1 7.4-10.4 [place] [address]-12-05 09:25:00 Test Item Value Reference Range Interpretation Comments Segs (test code = Segs) 87.9 45.0-75.0 [place] [address]-12-05 09:25:00 Test Item Value Reference Range Interpretation Comments Lymphocytes (test code = Lymphocytes) 3.3 20.0-40.0 [place] 765532-12-05 09:25:00 Test Item Value Reference Range Interpretation Comments Monocytes (test code = Monocytes) 8.5 2.0-12.0 [place] [address]-12-05 09:25:00 Test Item Value Reference Range Interpretation Comments Eosinophils (test code = 0.1 See_Comment [A utomated message] The Eosinophils) system which ge nerated this result tra nsmitted reference range : <=4.0. The reference r mirela was not used to int erpret this result as normal/abnormal . [place] [address]-12-05 09:25:00 Test Item Value Reference Range Interpretation Comments Basophils (test code = 0.2 See_Comment [Aut omated message] The Basophils) system which ge nerated this result tra nsmitted reference range : <=1.0. The reference r mirela was not used to int erpret this result as normal/abnormal . [place] 765532-12-05 09:25:00 Test Item Value Reference Range Interpretation Comments Neutrophils # (test code = Neutrophils 15.4 1.5-8.1 #) [place] 765532-12-05 09:25:00 Test Item Value Reference Range Interpretation Comments Lymphocytes # (test code = Lymphocytes 0.6 1.0-5.5 #) [place] 765532-12-05 09:25:00 Test Item Value Reference Range Interpretation Comments Monocytes # (test code 1.5 See_Comment [Aut omated message] The = Monocytes #) system which generated this result tra nsmitted reference range : <=0.8. The reference r mirela was not used to int erpret this result as normal/abnormal . [place] 765532-12-05 09:25:00 Test Item Value Reference Range Interpretation Comments Macrocyte (test code = 1+ *ABN*(09/19/22 Macrocyte) 3:25 AM) [place] 326012-12-05 09:25:00 Test Item Value Reference Range Interpretation Comments Glucose Lvl (test code = Glucose Lvl) 55 70-99 [place] 326012-12-05 09:25:00 Test Item Value Reference Range Interpretation Comments BUN (test code = BUN) 17 7-22 [place] 326012-12-05 09:25:00 Test Item Value Reference Range Interpretation Comments Creatinine Lvl (test code = Creatinine 0.79 0.50-1.40 Lvl) [place] 326012-12-05 09:25:00 Test Item Value Reference Range Interpretation Comments Sodium Lvl (test code = Sodium Lvl) 142 135-145 [place] 326012-12-05 09:25:00 Test Item Value Reference Range Interpretation Comments Potassium Lvl (test code = Potassium 4.3 3.5-5.1 Lvl) [place] 326012-12-05 09:25:00 Test Item Value Reference Range Interpretation Comments Chloride Lvl (test code = Chloride Lvl) 112 95-109 [place] 326012-12-05 09:25:00 Test Item Value Reference Range Interpretation Comments CO2 (test code = CO2) 15 24-32 [place] 326012-12-05 09:25:00 Test Item Value Reference Range Interpretation Comments Calcium Lvl (test code = Calcium Lvl) 8.9 8.5-10.5 [place] 326012-12-05 09:25:00 Test Item Value Reference Range Interpretation Comments AGAP (test code = AGAP) 19.3 10.0-20.[address]12-05 09:25:00 Test Item Value Reference Range Interpretation Comments eGFR (test code = eGFR) [address]12-05 09:25:00 Test Item Value Reference Range Interpretation Comments Magnesium Lvl (test code = Magnesium 2.4 1.8-2.4 Lvl) [address]12-05 09:25:00 Test Item Value Reference Range Interpretation Comments Phosphorus (test code = Phosphorus) 3.2 2.5-4.[address]12-05 09:25:00 Test Item Value Reference Range Interpretation Comments WBC (test code = WBC) 17.6 3.7-10.[address]12-05 09:25:00 Test Item Value Reference Range Interpretation Comments RBC (test code = RBC) 3.66 4.70-6.[address]12-05 09:25:00 Test Item Value Reference Range Interpretation Comments Hgb (test code = Hgb) 12.2 14.0-18.0 [address]12-05 09:25:00 Test Item Value Reference Range Interpretation Comments Hct (test code = Hct) 37.0 42.0-54.[address]12-05 09:25:00 Test Item Value Reference Range Interpretation Comments MCV (test code = MCV) 101.1 80.0-94.[address]12-05 09:25:00 Test Item Value Reference Range Interpretation Comments MCH (test code = MCH) 33.4 pg 27.0-31.[address]12-05 09:25:00 Test Item Value Reference Range Interpretation Comments MCHC (test code = MCHC) 33.1 32.0-36.0 [address]12-05 09:25:00 Test Item Value Reference Range Interpretation Comments RDW (test code = RDW) 13.0 11.5-14.[address]12-05 09:25:00 Test Item Value Reference Range Interpretation Comments Platelet (test code = Platelet) 296 133-450 [place] [address]-12-05 09:25:00 Test Item Value Reference Range Interpretation Comments MPV (test code = MPV) 8.1 7.4-10.4 [place] [address]-12-05 09:25:00 Test Item Value Reference Range Interpretation Comments Segs (test code = Segs) 87.9 45.0-75.0 [place] [address]-12-05 09:25:00 Test Item Value Reference Range Interpretation Comments Lymphocytes (test code = Lymphocytes) 3.3 20.0-40.0 [place] [address]-12-05 09:25:00 Test Item Value Reference Range Interpretation Comments Monocytes (test code = Monocytes) 8.5 2.0-12.[address]12-05 09:25:00 Test Item Value Reference Range Interpretation Comments Eosinophils (test code = 0.1 See_Comment [A utomated message] The Eosinophils) system which ge nerated this result tra nsmitted reference range : <=4.0. The reference r mirela was not used to int erpret this result as normal/abnormal . [place] [address]-12-05 09:25:00 Test Item Value Reference Range Interpretation Comments Basophils (test code = 0.2 See_Comment [Aut omated message] The Basophils) system which ge nerated this result tra nsmitted reference range : <=1.0. The reference r mirela was not used to int erpret this result as normal/abnormal . [place] [address]-12-05 09:25:00 Test Item Value Reference Range Interpretation Comments Neutrophils # (test code = Neutrophils 15.4 1.5-8.1 #) [place] [address]-12-05 09:25:00 Test Item Value Reference Range Interpretation Comments Lymphocytes # (test code = Lymphocytes 0.6 1.0-5.5 #) [place] [address]-12-05 09:25:00 Test Item Value Reference Range Interpretation Comments Monocytes # (test code 1.5 See_Comment [Aut omated message] The = Monocytes #) system which generated this result tra nsmitted reference range : <=0.8. The reference r mirela was not used to int erpret this result as normal/abnormal . [place] [address]-12-05 09:25:00 Test Item Value Reference Range Interpretation Comments Macrocyte (test code = 1+ *ABN*(09/19/22 Macrocyte) 3:25 AM) [place] 326012-12-05 09:25:00 Test Item Value Reference Range Interpretation Comments Glucose Lvl (test code = Glucose Lvl) 55 70-99 [place] 326012-12-05 09:25:00 Test Item Value Reference Range Interpretation Comments BUN (test code = BUN) 17 7-22 [place] 326012-12-05 09:25:00 Test Item Value Reference Range Interpretation Comments Creatinine Lvl (test code = Creatinine 0.79 0.50-1.40 Lvl) [place] 326012-12-05 09:25:00 Test Item Value Reference Range Interpretation Comments Sodium Lvl (test code = Sodium Lvl) 142 135-145 [place] 326012-12-05 09:25:00 Test Item Value Reference Range Interpretation Comments Potassium Lvl (test code = Potassium 4.3 3.5-5.1 Lvl) [place] 326012-12-05 09:25:00 Test Item Value Reference Range Interpretation Comments Chloride Lvl (test code = Chloride Lvl) 112 95-109 [place] 326012-12-05 09:25:00 Test Item Value Reference Range Interpretation Comments CO2 (test code = CO2) 15 24-32 [place] 326012-12-05 09:25:00 Test Item Value Reference Range Interpretation Comments Calcium Lvl (test code = Calcium Lvl) 8.9 8.5-10.5 [place] 326012-12-05 09:25:00 Test Item Value Reference Range Interpretation Comments AGAP (test code = AGAP) 19.3 10.0-20.0 [place] 326012-12-05 09:25:00 Test Item Value Reference Range Interpretation Comments eGFR (test code = eGFR) 85 [facility]2022-12-05 09:25:00 Test Item Value Reference Range Interpretation Comments Magnesium Lvl (test code = Magnesium 2.4 1.8-2.4 Lvl) [place] 326012-12-05 09:25:00 Test Item Value Reference Range Interpretation Comments Phosphorus (test code = Phosphorus) 3.2 2.5-4.5 [facility]82 09:25:00 Test Item Value Reference Range Interpretation Comments WBC (test code = WBC) 17.6 3.7-10.4 [place] 765532-12-05 09:25:00 Test Item Value Reference Range Interpretation Comments RBC (test code = RBC) 3.66 4.70-6.10 [place] [address]-12-05 09:25:00 Test Item Value Reference Range Interpretation Comments Hgb (test code = Hgb) 12.2 14.0-18.0 [place] [address]-12-05 09:25:00 Test Item Value Reference Range Interpretation Comments Hct (test code = Hct) 37.0 42.0-54.0 [place] [address]-12-05 09:25:00 Test Item Value Reference Range Interpretation Comments MCV (test code = MCV) 101.1 80.0-94.0 [place] [address]-12-05 09:25:00 Test Item Value Reference Range Interpretation Comments MCH (test code = MCH) 33.4 pg 27.0-31.0 [place] [address]-12-05 09:25:00 Test Item Value Reference Range Interpretation Comments MCHC (test code = MCHC) 33.1 32.0-36.0 [place] 765532-12-05 09:25:00 Test Item Value Reference Range Interpretation Comments RDW (test code = RDW) 13.0 11.5-14.5 [place] 765532-12-05 09:25:00 Test Item Value Reference Range Interpretation Comments Platelet (test code = Platelet) 296 133-450 [facility]7035[facility] 09:25:00 Test Item Value Reference Range Interpretation Comments MPV (test code = MPV) 8.1 7.4-10.4 [place] [address]-12-05 09:25:00 Test Item Value Reference Range Interpretation Comments Segs (test code = Segs) 87.9 45.0-75.0 [place] 765532-12-05 09:25:00 Test Item Value Reference Range Interpretation Comments Lymphocytes (test code = Lymphocytes) 3.3 20.0-40.0 [place] 765532-12-05 09:25:00 Test Item Value Reference Range Interpretation Comments Monocytes (test code = Monocytes) 8.5 2.0-12.[address]12-05 09:25:00 Test Item Value Reference Range Interpretation Comments Eosinophils (test code = 0.1 See_Comment [A utomated message] The Eosinophils) system which ge nerated this result tra nsmitted reference range : <=4.0. The reference r mriela was not used to int erpret this result as normal/abnormal . [place] [address]-12-05 09:25:00 Test Item Value Reference Range Interpretation Comments Basophils (test code = 0.2 See_Comment [Aut omated message] The Basophils) system which ge nerated this result tra nsmitted reference range : <=1.0. The reference r mirela was not used to int erpret this result as normal/abnormal . [place] [address]-12-05 09:25:00 Test Item Value Reference Range Interpretation Comments Neutrophils # (test code = Neutrophils 15.4 1.5-8.1 #) [address]12-05 09:25:00 Test Item Value Reference Range Interpretation Comments Lymphocytes # (test code = Lymphocytes 0.6 1.0-5.5 #) [address]12-05 09:25:00 Test Item Value Reference Range Interpretation Comments Monocytes # (test code 1.5 See_Comment [Aut omated message] The = Monocytes #) system which generated this result tra nsmitted reference range : <=0.8. The reference r mirela was not used to int erpret this result as normal/abnormal . [place] [address]-12-05 09:25:00 Test Item Value Reference Range Interpretation Comments Macrocyte (test code = 1+ *ABN*(09/19/22 Macrocyte) 3:25 AM) [place] 326012-12-04 15:27:00 Test Item Value Reference Range Interpretation Comments Glucose Lvl (test code = Glucose Lvl) 58 70-99 [place] 326012-12-04 15:27:00 Test Item Value Reference Range Interpretation Comments BUN (test code = BUN) 20 7-22 [place] 326012-12-04 15:27:00 Test Item Value Reference Range Interpretation Comments Creatinine Lvl (test code = Creatinine 0.84 0.50-1.40 Lvl) [facility]2022-12-04 15:27:00 Test Item Value Reference Range Interpretation Comments Sodium Lvl (test code = Sodium Lvl) 143 135-145 [place] 326012-12-04 15:27:00 Test Item Value Reference Range Interpretation Comments Potassium Lvl (test code = Potassium 3.8 3.5-5.1 Lvl) [place] 326012-12-04 15:27:00 Test Item Value Reference Range Interpretation Comments Chloride Lvl (test code = Chloride Lvl) 112 95-109 [place] 326012-12-04 15:27:00 Test Item Value Reference Range Interpretation Comments CO2 (test code = CO2) 19 24-32 [place] 326012-12-04 15:27:00 Test Item Value Reference Range Interpretation Comments Calcium Lvl (test code = Calcium Lvl) 8.6 8.5-10.5 [place] 326012-12-04 15:27:00 Test Item Value Reference Range Interpretation Comments AGAP (test code = AGAP) 15.8 10.0-20.0 [place] 326012-12-04 15:27:00 Test Item Value Reference Range Interpretation Comments eGFR (test code = eGFR) 83 [place] 765532-12-04 15:27:00 Test Item Value Reference Range Interpretation Comments WBC (test code = WBC) 11.9 3.7-10.4 [place] [address]-12-04 15:27:00 Test Item Value Reference Range Interpretation Comments RBC (test code = RBC) 3.53 4.70-6.10 [place] [address]-12-04 15:27:00 Test Item Value Reference Range Interpretation Comments Hgb (test code = Hgb) 11.8 14.0-18.0 [place] [address]-12-04 15:27:00 Test Item Value Reference Range Interpretation Comments Hct (test code = Hct) 35.6 42.0-54.0 [address]12-04 15:27:00 Test Item Value Reference Range Interpretation Comments MCV (test code = MCV) 100.8 80.0-94.0 [place] 326012-12-04 15:27:00 Test Item Value Reference Range Interpretation Comments Glucose Lvl (test code = Glucose Lvl) 58 70-99 [place] 326012-12-04 15:27:00 Test Item Value Reference Range Interpretation Comments BUN (test code = BUN) 20 7-22 [place] 326012-12-04 15:27:00 Test Item Value Reference Range Interpretation Comments Creatinine Lvl (test code = Creatinine 0.84 0.50-1.40 Lvl) [place] 326012-12-04 15:27:00 Test Item Value Reference Range Interpretation Comments Sodium Lvl (test code = Sodium Lvl) 143 135-145 [place] 326012-12-04 15:27:00 Test Item Value Reference Range Interpretation Comments Potassium Lvl (test code = Potassium 3.8 3.5-5.1 Lvl) [place] 326012-12-04 15:27:00 Test Item Value Reference Range Interpretation Comments Chloride Lvl (test code = Chloride Lvl) 112 95-109 [place] 765532-12-04 15:27:00 Test Item Value Reference Range Interpretation Comments MCH (test code = MCH) 33.3 pg 27.0-31.0 [place] 326012-12-04 15:27:00 Test Item Value Reference Range Interpretation Comments CO2 (test code = CO2) 19 24-32 [place] 326012-12-04 15:27:00 Test Item Value Reference Range Interpretation Comments Calcium Lvl (test code = Calcium Lvl) 8.6 8.5-10.5 [place] 326012-12-04 15:27:00 Test Item Value Reference Range Interpretation Comments AGAP (test code = AGAP) 15.8 10.0-20.0 [place] 326012-12-04 15:27:00 Test Item Value Reference Range Interpretation Comments eGFR (test code = eGFR) 83 [place] 765532-12-04 15:27:00 Test Item Value Reference Range Interpretation Comments WBC (test code = WBC) 11.9 3.7-10.4 [place] [address]-12-04 15:27:00 Test Item Value Reference Range Interpretation Comments RBC (test code = RBC) 3.53 4.70-6.10 [place] [address]-12-04 15:27:00 Test Item Value Reference Range Interpretation Comments Hgb (test code = Hgb) 11.8 14.0-18.0 [facility]DcubtifGDMRMJMUMM8394-43-02 15:27:00 Test Item Value Reference Range Interpretation Comments Hct (test code = Hct) 35.6 42.0-54.0 [facility] HospitalJnqmigyBOZXWBAIJE0411-78-37 15:27:00 Test Item Value Reference Range Interpretation Comments MCV (test code = MCV) 100.8 80.0-94.0 [facility] HospitalAzukuuuDCZEOTAPJP0399-83-66 15:27:00 Test Item Value Reference Range Interpretation Comments MCH (test code = MCH) 33.3 pg 27.0-31.0 [facility] HospitalMzqmkcgPXICMLTPRV5090-39-65 15:27:00 Test Item Value Reference Range Interpretation Comments MCHC (test code = MCHC) 33.1 32.0-36.0 [facility] HospitalMxvnlxsTFSEQHLTAP0432-99-73 15:27:00 Test Item Value Reference Range Interpretation Comments MCHC (test code = MCHC) 33.1 32.0-36.0 [facility] HospitalTianjjvPNERKJLZAA4178-68-23 15:27:00 Test Item Value Reference Range Interpretation Comments RDW (test code = RDW) 13.0 11.5-14.5 [facility] HospitalKraunwrCGNQFTEGCP7925-03-52 15:27:00 Test Item Value Reference Range Interpretation Comments Platelet (test code = Platelet) 267 133-450 [facility] HospitalYokrbxdKFQXEXXDTU7068-66-56 15:27:00 Test Item Value Reference Range Interpretation Comments MPV (test code = MPV) 8.3 7.4-10.4 [facility] HospitalXlinetpZTJSGQXDIW8681-99-10 15:27:00 Test Item Value Reference Range Interpretation Comments Segs (test code = Segs) 83.9 45.0-75.0 [facility] HospitalZjmrtkuZMWFURYGVB9050-87-61 15:27:00 Test Item Value Reference Range Interpretation Comments Lymphocytes (test code = Lymphocytes) 6.5 20.0-40.0 [facility] HospitalRwvsksbWREITACPGM6825-60-86 15:27:00 Test Item Value Reference Range Interpretation Comments Monocytes (test code = Monocytes) 8.5 2.0-12.0 [facility] HospitalVwffyukSLCRJJEOCI0381-61-30 15:27:00 Test Item Value Reference Range Interpretation Comments Eosinophils (test code = 0.6 See_Comment [A utomated message] The Eosinophils) system which ge nerated this result tra nsmitted reference range : <=4.0. The reference r mirela was not used to int erpret this result as normal/abnormal . [place] [address]-12-04 15:27:00 Test Item Value Reference Range Interpretation Comments Basophils (test code = 0.5 See_Comment [Aut omated message] The Basophils) system which ge nerated this result tra nsmitted reference range : <=1.0. The reference r mirela was not used to int erpret this result as normal/abnormal . [place] [address]-12-04 15:27:00 Test Item Value Reference Range Interpretation Comments Neutrophils # (test code = Neutrophils 10.0 1.5-8.1 #) [place] [address]-12-04 15:27:00 Test Item Value Reference Range Interpretation Comments RDW (test code = RDW) 13.0 11.5-14.5 [place] [address]-12-04 15:27:00 Test Item Value Reference Range Interpretation Comments Lymphocytes # (test code = Lymphocytes 0.8 1.0-5.5 #) [place] [address]-12-04 15:27:00 Test Item Value Reference Range Interpretation Comments Monocytes # (test code 1.0 See_Comment [Aut omated message] The = Monocytes #) system which generated this result tra nsmitted reference range : <=0.8. The reference r mirela was not used to int erpret this result as normal/abnormal . [place] [address]-12-04 15:27:00 Test Item Value Reference Range Interpretation Comments Eosinophils # (test code 0.1 See_Comment [A utomated message] The = Eosinophils #) system whic h generated this result tra nsmitted reference range : <=0.5. The reference r mirela was not used to int erpret this result as normal/abnormal . [place] [address]-12-04 15:27:00 Test Item Value Reference Range Interpretation Comments Basophils # (test code 0.1 See_Comment [Aut omated message] The = Basophils #) system which generated this result tra nsmitted reference range : <=0.2. The reference r mirela was not used to int erpret this result as normal/abnormal . [place] 765532-12-04 15:27:00 Test Item Value Reference Range Interpretation Comments Macrocyte (test code = 1+ *ABN*(09/18/22 Macrocyte) 9:27 AM) [place] [address]-12-04 15:27:00 Test Item Value Reference Range Interpretation Comments Platelet (test code = Platelet) 267 133-450 [place] 765532-12-04 15:27:00 Test Item Value Reference Range Interpretation Comments MPV (test code = MPV) 8.3 7.4-10.4 [place] [address]-12-04 15:27:00 Test Item Value Reference Range Interpretation Comments Segs (test code = Segs) 83.9 45.0-75.0 [place] [address]-12-04 15:27:00 Test Item Value Reference Range Interpretation Comments Lymphocytes (test code = Lymphocytes) 6.5 20.0-40.0 [place] [address]-12-04 15:27:00 Test Item Value Reference Range Interpretation Comments Monocytes (test code = Monocytes) 8.5 2.0-12.0 [place] 765532-12-04 15:27:00 Test Item Value Reference Range Interpretation Comments Eosinophils (test code = 0.6 See_Comment [A utomated message] The Eosinophils) system which ge nerated this result tra nsmitted reference range : <=4.0. The reference r mirela was not used to int erpret this result as normal/abnormal . [facility]:27:00 Test Item Value Reference Range Interpretation Comments Basophils (test code = 0.5 See_Comment [Aut omated message] The Basophils) system which ge nerated this result tra nsmitted reference range : <=1.0. The reference r mirela was not used to int erpret this result as normal/abnormal . [place] 765532-12-04 15:27:00 Test Item Value Reference Range Interpretation Comments Neutrophils # (test code = Neutrophils 10.0 1.5-8.1 #) [place] 765532-12-04 15:27:00 Test Item Value Reference Range Interpretation Comments Lymphocytes # (test code = Lymphocytes 0.8 1.0-5.5 #) [place] [address]-12-04 15:27:00 Test Item Value Reference Range Interpretation Comments Monocytes # (test code 1.0 See_Comment [Aut omated message] The = Monocytes #) system which generated this result tra nsmitted reference range : <=0.8. The reference r mirela was not used to int erpret this result as normal/abnormal . [place] 765532-12-04 15:27:00 Test Item Value Reference Range Interpretation Comments Eosinophils # (test code 0.1 See_Comment [A utomated message] The = Eosinophils #) system whic h generated this result tra nsmitted reference range : <=0.5. The reference r mirela was not used to int erpret this result as normal/abnormal . [place] 765532-12-04 15:27:00 Test Item Value Reference Range Interpretation Comments Basophils # (test code 0.1 See_Comment [Aut omated message] The = Basophils #) system which generated this result tra nsmitted reference range : <=0.2. The reference r mirela was not used to int erpret this result as normal/abnormal . [place] 765532-12-04 15:27:00 Test Item Value Reference Range Interpretation Comments Macrocyte (test code = 1+ *ABN*(09/18/22 Macrocyte) 9:27 AM) [place] 326012-12-04 15:27:00 Test Item Value Reference Range Interpretation Comments Glucose Lvl (test code = Glucose Lvl) 58 70-99 [facility]2022-12-04 15:27:00 Test Item Value Reference Range Interpretation Comments BUN (test code = BUN) 20 7-22 [place] 326012-12-04 15:27:00 Test Item Value Reference Range Interpretation Comments Creatinine Lvl (test code = Creatinine 0.84 0.50-1.40 Lvl) [place] 326012-12-04 15:27:00 Test Item Value Reference Range Interpretation Comments Sodium Lvl (test code = Sodium Lvl) 143 135-145 [place] 326012-12-04 15:27:00 Test Item Value Reference Range Interpretation Comments Potassium Lvl (test code = Potassium 3.8 3.5-5.1 Lvl) [address]12-04 15:27:00 Test Item Value Reference Range Interpretation Comments Chloride Lvl (test code = Chloride Lvl) 112 95-109 [place] 326012-12-04 15:27:00 Test Item Value Reference Range Interpretation Comments CO2 (test code = CO2) 19 24-32 [place] 326012-12-04 15:27:00 Test Item Value Reference Range Interpretation Comments Calcium Lvl (test code = Calcium Lvl) 8.6 8.5-10.5 [place] 326012-12-04 15:27:00 Test Item Value Reference Range Interpretation Comments AGAP (test code = AGAP) 15.8 10.0-20.0 [place] 326012-12-04 15:27:00 Test Item Value Reference Range Interpretation Comments eGFR (test code = eGFR) 83 [place] 765532-12-04 15:27:00 Test Item Value Reference Range Interpretation Comments WBC (test code = WBC) 11.9 3.7-10.4 [place] [address]-12-04 15:27:00 Test Item Value Reference Range Interpretation Comments RBC (test code = RBC) 3.53 4.70-6.10 [place] [address]-12-04 15:27:00 Test Item Value Reference Range Interpretation Comments Hgb (test code = Hgb) 11.8 14.0-18.[address]12-04 15:27:00 Test Item Value Reference Range Interpretation Comments Hct (test code = Hct) 35.6 42.0-54.[address]12-04 15:27:00 Test Item Value Reference Range Interpretation Comments MCV (test code = MCV) 100.8 80.0-94.[address]12-04 15:27:00 Test Item Value Reference Range Interpretation Comments MCH (test code = MCH) 33.3 pg 27.0-31.0 [place] [address]-12-04 15:27:00 Test Item Value Reference Range Interpretation Comments MCHC (test code = MCHC) 33.1 32.0-36.[address]12-04 15:27:00 Test Item Value Reference Range Interpretation Comments RDW (test code = RDW) 13.0 11.5-14.5 [place] 765532-12-04 15:27:00 Test Item Value Reference Range Interpretation Comments Platelet (test code = Platelet) 267 133-450 [place] 765532-12-04 15:27:00 Test Item Value Reference Range Interpretation Comments MPV (test code = MPV) 8.3 7.4-10.4 [place] 765532-12-04 15:27:00 Test Item Value Reference Range Interpretation Comments Segs (test code = Segs) 83.9 45.0-75.0 [place] 765532-12-04 15:27:00 Test Item Value Reference Range Interpretation Comments Lymphocytes (test code = Lymphocytes) 6.5 20.0-40.0 [place] [address]-12-04 15:27:00 Test Item Value Reference Range Interpretation Comments Monocytes (test code = Monocytes) 8.5 2.0-12.0 [place] 765532-12-04 15:27:00 Test Item Value Reference Range Interpretation Comments Eosinophils (test code = 0.6 See_Comment [A utomated message] The Eosinophils) system which ge nerated this result tra nsmitted reference range : <=4.0. The reference r mirela was not used to int erpret this result as normal/abnormal . [place] 765532-12-04 15:27:00 Test Item Value Reference Range Interpretation Comments Basophils (test code = 0.5 See_Comment [Aut omated message] The Basophils) system which ge nerated this result tra nsmitted reference range : <=1.0. The reference r mirela was not used to int erpret this result as normal/abnormal . [place] 765532-12-04 15:27:00 Test Item Value Reference Range Interpretation Comments Neutrophils # (test code = Neutrophils 10.0 1.5-8.1 #) [place] [address]-12-04 15:27:00 Test Item Value Reference Range Interpretation Comments Lymphocytes # (test code = Lymphocytes 0.8 1.0-5.5 #) [place] [address]-12-04 15:27:00 Test Item Value Reference Range Interpretation Comments Monocytes # (test code 1.0 See_Comment [Aut omated message] The = Monocytes #) system which generated this result tra nsmitted reference range : <=0.8. The reference r mirela was not used to int erpret this result as normal/abnormal . [facility]wel[facility]loCOFFFFJBUP[facility]79[facility] 15:27:00 Test Item Value Reference Range Interpretation Comments Eosinophils # (test code 0.1 See_Comment [A utomated message] The = Eosinophils #) system whic h generated this result tra nsmitted reference range : <=0.5. The reference r mirela was not used to int erpret this result as normal/abnormal . [facility]vczitMVWAEBZCHT4876-40-11 15:27:00 Test Item Value Reference Range Interpretation Comments Basophils # (test code 0.1 See_Comment [Aut omated message] The = Basophils #) system which generated this result tra nsmitted reference range : <=0.2. The reference r mirela was not used to int erpret this result as normal/abnormal . [place] 765532-12-04 15:27:00 Test Item Value Reference Range Interpretation Comments Macrocyte (test code = 1+ *ABN*(09/18/22 Macrocyte) 9:27 AM) [facility]XmlokxzJUCJMH2668-29-14 13:58:08 Test Item Value Reference Range Interpretation [...] the image provided. Large volume colonic stool. [facility] CampusPdytahkFWSCRC8264-73-62 13:58:08 Test Item Value Reference Range Interpretation [...] the image provided. Large volume colonic stool. [facility] CampusLobnrhoVQVFJQ0683-21-74 13:58:08 Test Item Value Reference Range Interpretation [...] the image provided. Large volume colonic stool. [facility] CampusTifuknmNVDRAW5200-48-43 12:43:53 Test Item Value Reference Range Interpretation [...] tube not visualized in the image provided. [facility] CampusNczwlwoMBWAME7967-18-54 12:43:53 Test Item Value Reference Range Interpretation [...] tube not visualized in the image provided. [facility] CampusXsdtotkTLDCTB4759-67-30 12:43:53 Test Item Value Reference Range Interpretation [...] tube not visualized in the image provided. [facility] CampusDiqmsxeKUEEBX6741-31-78 04:22:44 Test Item Value Reference Range Interpretation Comments RADRPT (test code = EXAM: XR RIGHT HUMERUS 2 RADRPT) VIEWS DATE: 09/17/2022 11:55INDICATION: Pain - painCOMPARISON: None.TECHNIQUE: AP and lateral radiographs of the humerusFINDINGS: No acute fracture or malalignment is identified.No soft tissue abnormality is identified.IMPRESSION: No acute abnormality. [place] [address]-12-04 04:22:44 Test Item Value Reference Range Interpretation Comments RADRPT (test code = EXAM: XR RIGHT HUMERUS 2 RADRPT) VIEWS DATE: 09/17/2022 11:55INDICATION: Pain - painCOMPARISON: None.TECHNIQUE: AP and lateral radiographs of the humerusFINDINGS: No acute fracture or malalignment is identified.No soft tissue abnormality is identified.IMPRESSION: No acute abnormality. [place] [address]-12-04 04:22:44 Test Item Value Reference Range Interpretation Comments RADRPT (test code = EXAM: XR RIGHT HUMERUS 2 RADRPT) VIEWS DATE: 09/17/2022 11:55INDICATION: Pain - painCOMPARISON: None.TECHNIQUE: AP and lateral radiographs of the humerusFINDINGS: No acute fracture or malalignment is identified.No soft tissue abnormality is identified.IMPRESSION: No acute abnormality. [place] [address]-12-04 04:22:35 Test Item Value Reference Range Interpretation Comments RADRPT (test code = EXAM: XR LEFT ELBOW 3 RADRPT) VIEWSDATE: 09/17/2022 11:55INDICATION: - painCOMPARISON: None.TECHNIQUE: AP, lateral and oblique radiographs of the elbowFINDINGS: No acute fracture or malalignment is identified.No elbow joint effusion is present. No soft tissue abnormality is identified.IMPRESSION: No acute abnormality. [place] [address]-12-04 04:22:35 Test Item Value Reference Range Interpretation Comments RADRPT (test code = EXAM: XR LEFT ELBOW 3 RADRPT) VIEWSDATE: 09/17/2022 11:55INDICATION: - painCOMPARISON: None.TECHNIQUE: AP, lateral and oblique radiographs of the elbowFINDINGS: No acute fracture or malalignment is identified.No elbow joint effusion is present. No soft tissue abnormality is identified.IMPRESSION: No acute abnormality. [facility] CampusNobdgwnJZFXRC8993-86-18 04:22:35 Test Item Value Reference Range Interpretation Comments RADRPT (test code = EXAM: XR LEFT ELBOW 3 RADRPT) VIEWSDATE: 09/17/2022 11:55INDICATION: - painCOMPARISON: None.TECHNIQUE: AP, lateral and oblique radiographs of the elbowFINDINGS: No acute fracture or malalignment is identified.No elbow joint effusion is present. No soft tissue abnormality is identified.IMPRESSION: No acute abnormality. [facility] CampusAymupqjCOHSBK9855-36-84 04:21:52 Test Item Value Reference Range Interpretation [...] fracture as well.* Glenohumeral alignment is satisfactory. [facility] CampusXxawatnKSTPVP9971-00-68 04:21:52 Test Item Value Reference Range Interpretation [...] fracture as well.* Glenohumeral alignment is satisfactory. [facility] CampusRnqepgeQSRVTJ8556-65-54 04:21:52 Test Item Value Reference Range Interpretation [...] fracture as well.* Glenohumeral alignment is satisfactory. [place] [address]4022-12-04 04:21:36 Test Item Value Reference Range Interpretation Comments RADRPT (test code = EXAM: XR RIGHT FOREARM 2 RADRPT) VIEWSDATE: 09/17/2022 11:55INDICATION: - painCOMPARISON: None.TECHNIQUE: AP and lateral radiographs of the forearmFINDINGS: No acute fracture or malalignment is identified.No soft tissue abnormality is identified.IMPRESSION: No acute abnormality. [place] [address]-12-04 04:21:36 Test Item Value Reference Range Interpretation Comments RADRPT (test code = EXAM: XR RIGHT FOREARM 2 RADRPT) VIEWSDATE: 09/17/2022 11:55INDICATION: - painCOMPARISON: None.TECHNIQUE: AP and lateral radiographs of the forearmFINDINGS: No acute fracture or malalignment is identified.No soft tissue abnormality is identified.IMPRESSION: No acute abnormality. [place] [address]-12-04 04:21:36 Test Item Value Reference Range Interpretation Comments RADRPT (test code = EXAM: XR RIGHT FOREARM 2 RADRPT) VIEWSDATE: 09/17/2022 11:55INDICATION: - painCOMPARISON: None.TECHNIQUE: AP and lateral radiographs of the forearmFINDINGS: No acute fracture or malalignment is identified.No soft tissue abnormality is identified.IMPRESSION: No acute abnormality. [place] [id number] 04:15:19 Test Item Value Reference Range Interpretation Comments RADRPT (test code = EXAM: XR PELVIS 3 RADRPT) VIEWSDATE: 09/17/2022 11:05INDICATION: - AP, inlet, outlet. PainCOMPARISON: July 02, 2022TECHNIQUE: AP, inlet and outlet views of the pelvisIMPRESSION: * Satisfactory pelvic ring alignment.* Posterior spinal stabilization and bilateral anterior column stabilization with cannulated screws are seen as before.* No pelvic encroachment. [place] [address]-12-04 04:15:19 Test Item Value Reference Range Interpretation Comments RADRPT (test code = EXAM: XR PELVIS 3 RADRPT) VIEWSDATE: 09/17/2022 11:05INDICATION: - AP, inlet, outlet. PainCOMPARISON: July 02, 2022TECHNIQUE: AP, inlet and outlet views of the pelvisIMPRESSION: * Satisfactory pelvic ring alignment.* Posterior spinal stabilization and bilateral anterior column stabilization with cannulated screws are seen as before.* No pelvic encroachment. [place] [id number] 04:15:19 Test Item Value Reference Range Interpretation Comments RADRPT (test code = EXAM: XR PELVIS 3 RADRPT) VIEWSDATE: 09/17/2022 11:05INDICATION: - AP, inlet, outlet. PainCOMPARISON: July 02, 2022TECHNIQUE: AP, inlet and outlet views of the pelvisIMPRESSION: * Satisfactory pelvic ring alignment.* Posterior spinal stabilization and bilateral anterior column stabilization with cannulated screws are seen as before.* No pelvic encroachment. [facility]2022-12-03 10:32:00 Test Item Value Reference Range Interpretation Comments Glucose Lvl (test code = Glucose Lvl) 56 70-99 [facility]2022-12-03 10:32:00 Test Item Value Reference Range Interpretation Comments BUN (test code = BUN) 17 7-22 [facility]2022-12-03 10:32:00 Test Item Value Reference Range Interpretation Comments Creatinine Lvl (test code = Creatinine 0.80 0.50-1.40 Lvl) [facility]2022-12-03 10:32:00 Test Item Value Reference Range Interpretation Comments Sodium Lvl (test code = Sodium Lvl) 141 135-145 [facility]2022-12-03 10:32:00 Test Item Value Reference Range Interpretation Comments Potassium Lvl (test code = Potassium 4.6 3.5-5.1 Lvl) [facility]2022-12-03 10:32:00 Test Item Value Reference Range Interpretation Comments Chloride Lvl (test code = Chloride Lvl) 111 95-109 [facility]2022-12-03 10:32:00 Test Item Value Reference Range Interpretation Comments CO2 (test code = CO2) 18 24-32 [place] 326012-12-03 10:32:00 Test Item Value Reference Range Interpretation Comments Calcium Lvl (test code = Calcium Lvl) 9.3 8.5-10.5 [facility]2022-12-03 10:32:00 Test Item Value Reference Range Interpretation Comments AGAP (test code = AGAP) 16.6 10.0-20.0 [place] 326012-12-03 10:32:00 Test Item Value Reference Range Interpretation Comments eGFR (test code = eGFR) 85 [facility]tkdtzpIVEEWDOBDG1322-25-84 10:32:00 Test Item Value Reference Range Interpretation Comments WBC (test code = WBC) 14.3 3.7-10.4 [place] 765532-12-03 10:32:00 Test Item Value Reference Range Interpretation Comments RBC (test code = RBC) 4.13 4.70-6.10 [place] 765532-12-03 10:32:00 Test Item Value Reference Range Interpretation Comments Hgb (test code = Hgb) 13.5 14.0-18.0 [place] 765532-12-03 10:32:00 Test Item Value Reference Range Interpretation Comments Hct (test code = Hct) 42.0 42.0-54.0 [place] 765532-12-03 10:32:00 Test Item Value Reference Range Interpretation Comments MCV (test code = MCV) 101.8 80.0-94.0 [place] 765532-12-03 10:32:00 Test Item Value Reference Range Interpretation Comments MCH (test code = MCH) 32.7 pg 27.0-31.0 [place] 765532-12-03 10:32:00 Test Item Value Reference Range Interpretation Comments MCHC (test code = MCHC) 32.2 32.0-36.0 [place] [address]-12-03 10:32:00 Test Item Value Reference Range Interpretation Comments RDW (test code = RDW) 13.2 11.5-14.5 [place] 765532-12-03 10:32:00 Test Item Value Reference Range Interpretation Comments Platelet (test code = Platelet) 297 133-450 [place] 765532-12-03 10:32:00 Test Item Value Reference Range Interpretation Comments MPV (test code = MPV) 7.8 7.4-10.4 [place] [address]-12-03 10:32:00 Test Item Value Reference Range Interpretation Comments Segs (test code = Segs) 84.3 45.0-75.0 [place] [address]-12-03 10:32:00 Test Item Value Reference Range Interpretation Comments Lymphocytes (test code = Lymphocytes) 5.6 20.0-40.0 [place] [address]-12-03 10:32:00 Test Item Value Reference Range Interpretation Comments Monocytes (test code = Monocytes) 9.3 2.0-12.0 [place] [address]-12-03 10:32:00 Test Item Value Reference Range Interpretation Comments Eosinophils (test code = 0.3 See_Comment [A utomated message] The Eosinophils) system which ge nerated this result tra nsmitted reference range : <=4.0. The reference r mirela was not used to int erpret this result as normal/abnormal . [place] [address]-12-03 10:32:00 Test Item Value Reference Range Interpretation Comments Basophils (test code = 0.5 See_Comment [Aut omated message] The Basophils) system which ge nerated this result tra nsmitted reference range : <=1.0. The reference r mirela was not used to int erpret this result as normal/abnormal . [place] 765532-12-03 10:32:00 Test Item Value Reference Range Interpretation Comments Neutrophils # (test code = Neutrophils 12.1 1.5-8.1 #) [place] [address]-12-03 10:32:00 Test Item Value Reference Range Interpretation Comments Lymphocytes # (test code = Lymphocytes 0.8 1.0-5.5 #) [place] [address]-12-03 10:32:00 Test Item Value Reference Range Interpretation Comments Monocytes # (test code 1.3 See_Comment [Aut omated message] The = Monocytes #) system which generated this result tra nsmitted reference range : <=0.8. The reference r mirela was not used to int erpret this result as normal/abnormal . [place] [address]-12-03 10:32:00 Test Item Value Reference Range Interpretation Comments Basophils # (test code 0.1 See_Comment [Aut omated message] The = Basophils #) system which generated this result tra nsmitted reference range : <=0.2. The reference r mirela was not used to int erpret this result as normal/abnormal . [facility]vvoonyXOSQSYQRGS6727-61-83 10:32:00 Test Item Value Reference Range Interpretation Comments Macrocyte (test code = 1+ *ABN*(09/17/22 Macrocyte) 4:32 AM) [place] 326012-12-03 10:32:00 Test Item Value Reference Range Interpretation Comments Glucose Lvl (test code = Glucose Lvl) 56 70-99 [place] 326012-12-03 10:32:00 Test Item Value Reference Range Interpretation Comments BUN (test code = BUN) 17 - [place] 326012-12-03 10:32:00 Test Item Value Reference Range Interpretation Comments Creatinine Lvl (test code = Creatinine 0.80 0.50-1.40 Lvl) [facility]2022-12-03 10:32:00 Test Item Value Reference Range Interpretation Comments Sodium Lvl (test code = Sodium Lvl) 141 135-145 [facility]2022-12-03 10:32:00 Test Item Value Reference Range Interpretation Comments Potassium Lvl (test code = Potassium 4.6 3.5-5.1 Lvl) [facility]2022-12-03 10:32:00 Test Item Value Reference Range Interpretation Comments Chloride Lvl (test code = Chloride Lvl) 111 95-109 [facility]2022-12-03 10:32:00 Test Item Value Reference Range Interpretation Comments CO2 (test code = CO2) 18 24-32 [place] 326012-12-03 10:32:00 Test Item Value Reference Range Interpretation Comments Calcium Lvl (test code = Calcium Lvl) 9.3 8.5-10.5 [place] 326012-12-03 10:32:00 Test Item Value Reference Range Interpretation Comments AGAP (test code = AGAP) 16.6 10.0-20.0 [place] 326012-12-03 10:32:00 Test Item Value Reference Range Interpretation Comments eGFR (test code = eGFR) 85 [place] 765532-12-03 10:32:00 Test Item Value Reference Range Interpretation Comments WBC (test code = WBC) 14.3 3.7-10.4 [place] 765532-12-03 10:32:00 Test Item Value Reference Range Interpretation Comments RBC (test code = RBC) 4.13 4.70-6.10 [place] [address]-12-03 10:32:00 Test Item Value Reference Range Interpretation Comments Hgb (test code = Hgb) 13.5 14.0-18.0 [place] [address]-12-03 10:32:00 Test Item Value Reference Range Interpretation Comments Hct (test code = Hct) 42.0 42.0-54.0 [place] [address]-12-03 10:32:00 Test Item Value Reference Range Interpretation Comments MCV (test code = MCV) 101.8 80.0-94.0 [place] [address]-12-03 10:32:00 Test Item Value Reference Range Interpretation Comments MCH (test code = MCH) 32.7 pg 27.0-31.0 [place] [address]-12-03 10:32:00 Test Item Value Reference Range Interpretation Comments MCHC (test code = MCHC) 32.2 32.0-36.0 [place] [address]-12-03 10:32:00 Test Item Value Reference Range Interpretation Comments RDW (test code = RDW) 13.2 11.5-14.5 [place] [address]-12-03 10:32:00 Test Item Value Reference Range Interpretation Comments Platelet (test code = Platelet) 297 133-450 [place] 765532-12-03 10:32:00 Test Item Value Reference Range Interpretation Comments MPV (test code = MPV) 7.8 7.4-10.4 [place] [address]-12-03 10:32:00 Test Item Value Reference Range Interpretation Comments Segs (test code = Segs) 84.3 45.0-75.0 [place] [address]-12-03 10:32:00 Test Item Value Reference Range Interpretation Comments Lymphocytes (test code = Lymphocytes) 5.6 20.0-40.0 [place] 765532-12-03 10:32:00 Test Item Value Reference Range Interpretation Comments Monocytes (test code = Monocytes) 9.3 2.0-12.0 [place] 765532-12-03 10:32:00 Test Item Value Reference Range Interpretation Comments Eosinophils (test code = 0.3 See_Comment [A utomated message] The Eosinophils) system which ge nerated this result tra nsmitted reference range : <=4.0. The reference r mirela was not used to int erpret this result as normal/abnormal . [place] 765532-12-03 10:32:00 Test Item Value Reference Range Interpretation Comments Basophils (test code = 0.5 See_Comment [Aut omated message] The Basophils) system which ge nerated this result tra nsmitted reference range : <=1.0. The reference r mirela was not used to int erpret this result as normal/abnormal . [facility]TC[facility]01[facility] 10:32:00 Test Item Value Reference Range Interpretation Comments Neutrophils # (test code = Neutrophils 12.1 1.5-8.1 #) [place] [address]-12-03 10:32:00 Test Item Value Reference Range Interpretation Comments Lymphocytes # (test code = Lymphocytes 0.8 1.0-5.5 #) [facility]JysopqcRDZGSELBPI0827-97-02 10:32:00 Test Item Value Reference Range Interpretation Comments Monocytes # (test code 1.3 See_Comment [Aut omated message] The = Monocytes #) system which generated this result tra nsmitted reference range : <=0.8. The reference r mirela was not used to int erpret this result as normal/abnormal . [facility] HospitalQugkwnvYCWRRHGDNR3636-63-54 10:32:00 Test Item Value Reference Range Interpretation Comments Basophils # (test code 0.1 See_Comment [Aut omated message] The = Basophils #) system which generated this result tra nsmitted reference range : <=0.2. The reference r mirela was not used to int erpret this result as normal/abnormal . [place] [address]-12-03 10:32:00 Test Item Value Reference Range Interpretation Comments Macrocyte (test code = 1+ *ABN*(09/17/22 Macrocyte) 4:32 AM) [facility]2022-12-03 10:32:00 Test Item Value Reference Range Interpretation Comments Glucose Lvl (test code = Glucose Lvl) 56 70-99 [place] 326012-12-03 10:32:00 Test Item Value Reference Range Interpretation Comments BUN (test code = BUN) 17 7-22 [place] 326012-12-03 10:32:00 Test Item Value Reference Range Interpretation Comments Creatinine Lvl (test code = Creatinine 0.80 0.50-1.40 Lvl) [place] 326012-12-03 10:32:00 Test Item Value Reference Range Interpretation Comments Sodium Lvl (test code = Sodium Lvl) 141 135-145 [place] 326012-12-03 10:32:00 Test Item Value Reference Range Interpretation Comments Potassium Lvl (test code = Potassium 4.6 3.5-5.1 Lvl) [place] 326012-12-03 10:32:00 Test Item Value Reference Range Interpretation Comments Chloride Lvl (test code = Chloride Lvl) 111 95-109 [place] 326012-12-03 10:32:00 Test Item Value Reference Range Interpretation Comments CO2 (test code = CO2) 18 24-32 [place] 326012-12-03 10:32:00 Test Item Value Reference Range Interpretation Comments Calcium Lvl (test code = Calcium Lvl) 9.3 8.5-10.5 [place] 326012-12-03 10:32:00 Test Item Value Reference Range Interpretation Comments AGAP (test code = AGAP) 16.6 10.0-20.0 [place] [address]-12-03 10:32:00 Test Item Value Reference Range Interpretation Comments eGFR (test code = eGFR) 85 [place] [address]-12-03 10:32:00 Test Item Value Reference Range Interpretation Comments WBC (test code = WBC) 14.3 3.7-10.4 [address]12-03 10:32:00 Test Item Value Reference Range Interpretation Comments RBC (test code = RBC) 4.13 4.70-6.10 [place] [address]-12-03 10:32:00 Test Item Value Reference Range Interpretation Comments Hgb (test code = Hgb) 13.5 14.0-18.0 [place] [address]-12-03 10:32:00 Test Item Value Reference Range Interpretation Comments Hct (test code = Hct) 42.0 42.0-54.0 [place] 765532-12-03 10:32:00 Test Item Value Reference Range Interpretation Comments MCV (test code = MCV) 101.8 80.0-94.0 [place] 765532-12-03 10:32:00 Test Item Value Reference Range Interpretation Comments MCH (test code = MCH) 32.7 pg 27.0-31.0 [place] 765532-12-03 10:32:00 Test Item Value Reference Range Interpretation Comments MCHC (test code = MCHC) 32.2 32.0-36.0 [place] [address]-12-03 10:32:00 Test Item Value Reference Range Interpretation Comments RDW (test code = RDW) 13.2 11.5-14.5 [place] 765532-12-03 10:32:00 Test Item Value Reference Range Interpretation Comments Platelet (test code = Platelet) 297 133-450 [place] 765532-12-03 10:32:00 Test Item Value Reference Range Interpretation Comments MPV (test code = MPV) 7.8 7.4-10.4 [place] [address]-12-03 10:32:00 Test Item Value Reference Range Interpretation Comments Segs (test code = Segs) 84.3 45.0-75.0 [place] 765532-12-03 10:32:00 Test Item Value Reference Range Interpretation Comments Lymphocytes (test code = Lymphocytes) 5.6 20.0-40.0 [place] 765532-12-03 10:32:00 Test Item Value Reference Range Interpretation Comments Monocytes (test code = Monocytes) 9.3 2.0-12.0 [place] [address]-12-03 10:32:00 Test Item Value Reference Range Interpretation Comments Eosinophils (test code = 0.3 See_Comment [A utomated message] The Eosinophils) system which ge nerated this result tra nsmitted reference range : <=4.0. The reference r mirela was not used to int erpret this result as normal/abnormal . [place] 765532-12-03 10:32:00 Test Item Value Reference Range Interpretation Comments Basophils (test code = 0.5 See_Comment [Aut omated message] The Basophils) system which ge nerated this result tra nsmitted reference range : <=1.0. The reference r mirela was not used to int erpret this result as normal/abnormal . [facility] HospitalCkujcopYIGPHUURNU6628-77-56 10:32:00 Test Item Value Reference Range Interpretation Comments Neutrophils # (test code = Neutrophils 12.1 1.5-8.1 #) [facility] HospitalGajgjmqMQOJAICUAT7320-89-79 10:32:00 Test Item Value Reference Range Interpretation Comments Lymphocytes # (test code = Lymphocytes 0.8 1.0-5.5 #) [facility] HospitalHsusnusAPSHALJCZB6481-78-44 10:32:00 Test Item Value Reference Range Interpretation Comments Monocytes # (test code 1.3 See_Comment [Aut omated message] The = Monocytes #) system which generated this result tra nsmitted reference range : <=0.8. The reference r mirela was not used to int erpret this result as normal/abnormal . [facility] HospitalNhphkumHQYNJOJIRK5696-21-09 10:32:00 Test Item Value Reference Range Interpretation Comments Basophils # (test code 0.1 See_Comment [Aut omated message] The = Basophils #) system which generated this result tra nsmitted reference range : <=0.2. The reference r mirela was not used to int erpret this result as normal/abnormal . [facility] HospitalPijuebeASJKAIYRCX7813-28-34 10:32:00 Test Item Value Reference Range Interpretation Comments Macrocyte (test code = 1+ *ABN*(09/17/22 Macrocyte) 4:32 AM) [facility] [id number] 16:53:00 Test Item Value Reference Range Interpretation Comments ABO/Rh (test code = ABO/Rh) O POS [facility] [employer] [id number] 16:53:00 Test Item Value Reference Range Interpretation Comments Antibody Scrn (test Negative (09/16/22 code = Antibody Scrn) 10:53 AM) [facility] [employer] [id number] 16:53:00 Test Item Value Reference Range Interpretation Comments ABO/Rh (test code = ABO/Rh) O POS [facility] [employer] [id number] 16:53:00 Test Item Value Reference Range Interpretation Comments Antibody Scrn (test Negative (09/16/22 code = Antibody Scrn) 10:53 AM) [facility] [id number] 16:53:00 Test Item Value Reference Range Interpretation Comments ABO/Rh (test code = ABO/Rh) [facility] [id number] 16:53:00 Test Item Value Reference Range Interpretation Comments Antibody Scrn (test Negative (09/16/22 code = Antibody Scrn) 10:53 AM) [facility]vCQFMFSZWMS4345-20-58 10:28:00 Test Item Value Reference Range Interpretation Comments Coronavirus (COVID-19) Detected MANASA (test code = 2*ABN*(09/16/22 4:28 Coronavirus (COVID-19) AM) MANASA) [facility] HospitalZjuyjyiIVKTLLNLFZ6466-71-63 10:28:00 Test Item Value Reference Range Interpretation Comments Coronavirus (COVID-19) Detected MANASA (test code = 4*ABN*(09/16/22 4:28 Coronavirus (COVID-19) AM) MANASA) [facility] HospitalUszlwhwOFHWXIAFHU8322-43-54 10:28:00 Test Item Value Reference Range Interpretation Comments Coronavirus (COVID-19) Detected MANASA (test code = 4*ABN*(09/16/22 4:28 Coronavirus (COVID-19) AM) MANASA) [facility] HospitalHzsjpdmUBRRGAZQJF8027-20-35 10:28:00 Test Item Value Reference Range Interpretation Comments Coronavirus (COVID-19) Detected MANASA (test code = 2*ABN*(09/16/22 4:28 Coronavirus (COVID-19) AM) MANASA) [facility] HospitalNedmnlsKBKXLWEUBE7914-61-41 10:28:00 Test Item Value Reference Range Interpretation Comments Coronavirus (COVID-19) Detected MANASA (test code = 4*ABN*(09/16/22 4:28 Coronavirus (COVID-19) AM) MANASA) [facility] HospitalDamugsuCHPQWUBGUQ2942-17-91 10:28:00 Test Item Value Reference Range Interpretation Comments Coronavirus (COVID-19) Detected MANASA (test code = 2*ABN*(09/16/22 4:28 Coronavirus (COVID-19) AM) MANASA) [facility]2022-12-02 06:23:00 Test Item Value Reference Range Interpretation Comments Total Protein (test code = Total 6.3 6.4-8.4 Protein) [place] 326012-12-02 06:23:00 Test Item Value Reference Range Interpretation Comments Albumin Lvl (test code = Albumin Lvl) 3.0 3.5-5.0 [place] 326012-12-02 06:23:00 Test Item Value Reference Range Interpretation Comments ALANINE AMINOTRANSFERASE 19 See_Comment [A utomated message] (test code = ALANINE The sys tem which AMINOTRANSFERASE) generated this result transmitted ref erence range: <=65. Th e reference range was not used to int erpret this result as normal/abnormal . [facility] [id number] 06:23:00 Test Item Value Reference Range Interpretation Comments AST (test code = AST) 14 See_Comment [Auto mated message] The system which ge nerated this result transmit sivakumar reference range : <=37. The reference range was not used to interpr et this result as lida l/abnormal. [facility] [id number] 06:23:00 Test Item Value Reference Range Interpretation Comments Alk Phos (test code = Alk Phos) 118 39-136 [facility] [id number] 06:23:00 Test Item Value Reference Range Interpretation Comments Bili Total (test code = Bili Total) 1.0 0.2-1.3 [facility] [id number] 06:23:00 Test Item Value Reference Range Interpretation Comments Bili Direct (test code 0.3 See_Comment [Aut omated message] The = Bili Direct) system which generated this result tra nsmitted reference range : <=0.3. The reference r mirela was not used to int erpret this result as lida l/abnormal. [facility] [id number] 06:23:00 Test Item Value Reference Range Interpretation Comments Bili Indirect (test 0.7 See_Comment [Automa sivakumar message] The code = Bili Indirect) system which generated this result tra nsmitted reference range : <=1.0. The reference r mirela was not used to int erpret this result as normal/abnormal . [facility] [id number] 06:23:00 Test Item Value Reference Range Interpretation Comments Globulin (test code = Globulin) 3.3 2.7-4.2 [facility]2022-12-02 06:23:00 Test Item Value Reference Range Interpretation Comments A/G Ratio (test code = A/G Ratio) 0.9 1 0.7-1.6 [place] 326012-12-02 06:23:00 Test Item Value Reference Range Interpretation Comments Lactic Acid Lvl (test code = Lactic 1.2 0.5-2.2 Acid Lvl) [place] 471482-12-02 06:23:00 Test Item Value Reference Range Interpretation Comments Total Protein (test code = Total 6.3 6.4-8.4 Protein) [place] [address]-12-02 06:23:00 Test Item Value Reference Range Interpretation Comments Albumin Lvl (test code = Albumin Lvl) 3.0 3.5-5.0 [place] 471482-12-02 06:23:00 Test Item Value Reference Range Interpretation Comments ALANINE AMINOTRANSFERASE 19 See_Comment [A utomated message] (test code = ALANINE The sys tem which AMINOTRANSFERASE) generated this result transmitted ref erence range: <=65. Th e reference range was not used to int erpret this result as normal/abnormal . [facility]JbdelmhZEQDWDWHP7967-21-29 06:23:00 Test Item Value Reference Range Interpretation Comments AST (test code = AST) 14 See_Comment [Auto mated message] The system which ge nerated this result transmit sivakumar reference range : <=37. The reference range was not used to interpr et this result as lida l/abnormal. [facility] SoutheastCjgfygvBGEPPDCNZ7320-20-87 06:23:00 Test Item Value Reference Range Interpretation Comments Alk Phos (test code = Alk Phos) 118 39-136 [place] 471482-12-02 06:23:00 Test Item Value Reference Range Interpretation Comments Bili Total (test code = Bili Total) 1.0 0.2-1.3 [place] 471482-12-02 06:23:00 Test Item Value Reference Range Interpretation Comments Bili Direct (test code 0.3 See_Comment [Aut omated message] The = Bili Direct) system which generated this result tra nsmitted reference range : <=0.3. The reference r mirela was not used to int erpret this result as lida l/abnormal. [place] [address]-12-02 06:23:00 Test Item Value Reference Range Interpretation Comments Bili Indirect (test 0.7 See_Comment [Automa sivakumar message] The code = Bili Indirect) system which generated this result tra nsmitted reference range : <=1.0. The reference r mirela was not used to int erpret this result as normal/abnormal . [facility]CzsqvbqHKRVTFWMF1138-48-57 06:23:00 Test Item Value Reference Range Interpretation Comments Globulin (test code = Globulin) 3.3 2.7-4.2 [facility] SoutheastUrpzhhsKOIJCOOYV9793-84-91 06:23:00 Test Item Value Reference Range Interpretation Comments A/G Ratio (test code = A/G Ratio) 0.9 1 0.7-1.6 [facility] SoutheastZsiwueeBBLSVQMYZ0610-14-32 06:23:00 Test Item Value Reference Range Interpretation Comments pH David (test code = pH David) 7.39 1 7.28-7.42 [facility] SoutheastWimyonsEVWLJROBN1336-76-77 06:23:00 Test Item Value Reference Range Interpretation Comments pCO2 David (test code = pCO2 David) 35 38-52 [facility] SoutheastVhejeqhZEDKGKONQ1087-19-31 06:23:00 Test Item Value Reference Range Interpretation Comments pO2 David (test code = pO2 David) 51 20-49 [facility] SoutheastEwdjsevIVZLZMVPF9563-48-38 06:23:00 Test Item Value Reference Range Interpretation Comments HCO3 David (test code = HCO3 David) 21 22-26 [facility] SoutheastAurjrnkHRESPCGXS6520-10-60 06:23:00 Test Item Value Reference Range Interpretation Comments BE David (test code = BE David) -3 -2-2 [facility] SoutheastWquvsurSAUUHCTCP5491-33-53 06:23:00 Test Item Value Reference Range Interpretation Comments O2 Sat David (calc) (test code = O2 Sat 85.3 40.0-70.0 David (calc)) [facility] SoutheastYensxjfBXQGVZBHK6465-59-45 06:23:00 Test Item Value Reference Range Interpretation Comments Temp David (test code = Temp David) 37.0 [facility] HospitalWqruualIYJCSTWYUX1234-54-22 06:23:00 Test Item Value Reference Range Interpretation Comments ACT (TEG) Rapid (test code = ACT (TEG) 89 s 86-118 Rapid) [facility]KmyfozmMWWJJIBDCF6206-35-97 06:23:00 Test Item Value Reference Range Interpretation Comments Split Point Rapid (test code = Split 0.3 min Point Rapid) [address]12-02 06:23:00 Test Item Value Reference Range Interpretation Comments R-time Rapid (test code = R-time 0.4 min 0.4-0.7 Rapid) [address]12-02 06:23:00 Test Item Value Reference Range Interpretation Comments K-time Rapid (test code = K-time 1.4 min 0.6-2.3 Rapid) [address]12-02 06:23:00 Test Item Value Reference Range Interpretation Comments Angle Rapid (test code = Angle 74 degrees 64-80 Rapid) [address]12-02 06:23:00 Test Item Value Reference Range Interpretation Comments Max Amplitude Rapid (test code = Max 63 mm 52-71 Amplitude Rapid) [address]12-02 06:23:00 Test Item Value Reference Range Interpretation Comments G-value Rapid (test code = G-value 8.5 5.0-11.6 Rapid) [address]12-02 06:23:00 Test Item Value Reference Range Interpretation Comments Estimated % Lysis Rapid 2.8 See_Comment [Au tomated message] The (test code = Estimated syste m which generated % Lysis Rapid) this result t ransmitted reference range : <=7.5. The reference r mirela was not used to int erpret this result as normal/abnormal . [place] [address]-12-02 06:23:00 Test Item Value Reference Range Interpretation Comments ACT (TEG) Rapid (test code = ACT (TEG) 89 s 86-118 Rapid) [place] [address]-12-02 06:23:00 Test Item Value Reference Range Interpretation Comments Split Point Rapid (test code = Split 0.3 min Point Rapid) [address]12-02 06:23:00 Test Item Value Reference Range Interpretation Comments R-time Rapid (test code = R-time 0.4 min 0.4-0.7 Rapid) [address]12-02 06:23:00 Test Item Value Reference Range Interpretation Comments K-time Rapid (test code = K-time 1.4 min 0.6-2.3 Rapid) [address]12-02 06:23:00 Test Item Value Reference Range Interpretation Comments Angle Rapid (test code = Angle 74 degrees 64-80 Rapid) [address]12-02 06:23:00 Test Item Value Reference Range Interpretation Comments Max Amplitude Rapid (test code = Max 63 mm 52-71 Amplitude Rapid) [address]12-02 06:23:00 Test Item Value Reference Range Interpretation Comments G-value Rapid (test code = G-value 8.5 5.0-11.6 Rapid) [address]12-02 06:23:00 Test Item Value Reference Range Interpretation Comments Estimated % Lysis Rapid 2.8 See_Comment [Au tomated message] The (test code = Estimated syste m which generated % Lysis Rapid) this result t ransmitted reference range : <=7.5. The reference r mirela was not used to int erpret this result as normal/abnormal . [address]12-02 06:23:00 Test Item Value Reference Range Interpretation Comments Basophils # (test code 0.1 See_Comment [Aut omated message] The = Basophils #) system which generated this result tra nsmitted reference range : <=0.2. The reference r mirela was not used to int erpret this result as normal/abnormal . [facility] [id number] 06:23:00 Test Item Value Reference Range Interpretation Comments Total Protein (test code = Total 6.3 6.4-8.4 Protein) [address]12-02 06:23:00 Test Item Value Reference Range Interpretation Comments Albumin Lvl (test code = Albumin Lvl) 3.0 3.5-5.0 [address]12-02 06:23:00 Test Item Value Reference Range Interpretation Comments ALANINE AMINOTRANSFERASE 19 See_Comment [A utomated message] (test code = ALANINE The sys tem which AMINOTRANSFERASE) generated this result transmitted ref erence range: <=65. Th e reference range was not used to int erpret this result as normal/abnormal . [facility] [id number] 06:23:00 Test Item Value Reference Range Interpretation Comments AST (test code = AST) 14 See_Comment [Auto mated message] The system which ge nerated this result transmit sivakumar reference range : <=37. The reference range was not used to interpr et this result as lida l/abnormal. [address]12-02 06:23:00 Test Item Value Reference Range Interpretation Comments Alk Phos (test code = Alk Phos) 118 39-136 [address]12-02 06:23:00 Test Item Value Reference Range Interpretation Comments Bili Total (test code = Bili Total) 1.0 0.2-1.[address]12-02 06:23:00 Test Item Value Reference Range Interpretation Comments Bili Direct (test code 0.3 See_Comment [Aut omated message] The = Bili Direct) system which generated this result tra nsmitted reference range : <=0.3. The reference r mirela was not used to int erpret this result as lida l/abnormal. [address]12-02 06:23:00 Test Item Value Reference Range Interpretation Comments Bili Indirect (test 0.7 See_Comment [Automa sivakumar message] The code = Bili Indirect) system which generated this result tra nsmitted reference range : <=1.0. The reference r mirela was not used to int erpret this result as normal/abnormal . [place] [address]-12-02 06:23:00 Test Item Value Reference Range Interpretation Comments Globulin (test code = Globulin) 3.3 2.7-4.[address]12-02 06:23:00 Test Item Value Reference Range Interpretation Comments A/G Ratio (test code = A/G Ratio) 0.9 1 0.7-1.6 [address]12-02 06:23:00 Test Item Value Reference Range Interpretation Comments Lactic Acid Lvl (test code = Lactic 1.2 0.5-2.2 Acid Lvl) [address]12-02 06:23:00 Test Item Value Reference Range Interpretation Comments Total Protein (test code = Total 6.3 6.4-8.4 Protein) [address]12-02 06:23:00 Test Item Value Reference Range Interpretation Comments Albumin Lvl (test code = Albumin Lvl) 3.0 3.5-5.0 [facility] XxpfvscMXQWROTDW8716-49-53 06:23:00 Test Item Value Reference Range Interpretation Comments ALANINE AMINOTRANSFERASE 19 See_Comment [A utomated message] (test code = ALANINE The sys tem which AMINOTRANSFERASE) generated this result transmitted ref erence range: <=65. Th e reference range was not used to int erpret this result as normal/abnormal . [facility] EucosmsWYZCZFUAK3027-74-93 06:23:00 Test Item Value Reference Range Interpretation Comments AST (test code = AST) 14 See_Comment [Auto mated message] The system which ge nerated this result transmit sivakumar reference range : <=37. The reference range was not used to interpr et this result as lida l/abnormal. [facility] DdaxswnFBYBSOFZY0359-23-98 06:23:00 Test Item Value Reference Range Interpretation Comments Alk Phos (test code = Alk Phos) 118 39-136 [facility] TfjoscrEBPILZBNJ3441-43-36 06:23:00 Test Item Value Reference Range Interpretation Comments Bili Total (test code = Bili Total) 1.0 0.2-1.3 [facility]XtxqmmsNZIKQCOCW4838-21-18 06:23:00 Test Item Value Reference Range Interpretation Comments Bili Direct (test code 0.3 See_Comment [Aut omated message] The = Bili Direct) system which generated this result tra nsmitted reference range : <=0.3. The reference r mirela was not used to int erpret this result as lida l/abnormal. [facility] ZvulnhgVFQUXAJQP7314-35-16 06:23:00 Test Item Value Reference Range Interpretation Comments Bili Indirect (test 0.7 See_Comment [Automa sivakumar message] The code = Bili Indirect) system which generated this result tra nsmitted reference range : <=1.0. The reference r mirela was not used to int erpret this result as normal/abnormal . [facility] ChpsbupDUTGVDSVE0261-52-88 06:23:00 Test Item Value Reference Range Interpretation Comments Globulin (test code = Globulin) 3.3 2.7-4.2 [facility] [facility] SakomysMUMKETGGQ9736-10-89 06:23:00 Test Item Value Reference Range Interpretation Comments A/G Ratio (test code = A/G Ratio) 0.9 1 0.7-1.6 [facility]GvigzkjLDVKZNGXJ3610-16-22 06:23:00 Test Item Value Reference Range Interpretation Comments pH David (test code = pH David) 7.39 1 7.28-7.42 [place] 471482-12-02 06:23:00 Test Item Value Reference Range Interpretation Comments pCO2 David (test code = pCO2 David) 35 38-52 [place] 471482-12-02 06:23:00 Test Item Value Reference Range Interpretation Comments pO2 David (test code = pO2 David) 51 20-49 [place] 471482-12-02 06:23:00 Test Item Value Reference Range Interpretation Comments HCO3 David (test code = HCO3 David) 21 22-26 [place] [address]-12-02 06:23:00 Test Item Value Reference Range Interpretation Comments BE David (test code = BE David) -3 -2-2 [place] 471482-12-02 06:23:00 Test Item Value Reference Range Interpretation Comments O2 Sat David (calc) (test code = O2 Sat 85.3 40.0-70.0 David (calc)) [facility] SoutheastLhbmnxaWYEYWFWME8404-30-61 06:23:00 Test Item Value Reference Range Interpretation Comments Temp David (test code = Temp David) 37.0 [place] 765532-12-02 06:23:00 Test Item Value Reference Range Interpretation Comments ACT (TEG) Rapid (test code = ACT (TEG) 89 s 86-118 Rapid) [place] 765532-12-02 06:23:00 Test Item Value Reference Range Interpretation Comments Split Point Rapid (test code = Split 0.3 min Point Rapid) [place] 765532-12-02 06:23:00 Test Item Value Reference Range Interpretation Comments R-time Rapid (test code = R-time 0.4 min 0.4-0.7 Rapid) [place] [address]-12-02 06:23:00 Test Item Value Reference Range Interpretation Comments K-time Rapid (test code = K-time 1.4 min 0.6-2.3 Rapid) [place] 765532-12-02 06:23:00 Test Item Value Reference Range Interpretation Comments Angle Rapid (test code = Angle 74 degrees 64-80 Rapid) [place] 765532-12-02 06:23:00 Test Item Value Reference Range Interpretation Comments Max Amplitude Rapid (test code = Max 63 mm 52-71 Amplitude Rapid) [place] [address]-12-02 06:23:00 Test Item Value Reference Range Interpretation Comments G-value Rapid (test code = G-value 8.5 5.0-11.6 Rapid) [place] [address]-12-02 06:23:00 Test Item Value Reference Range Interpretation Comments Estimated % Lysis Rapid 2.8 See_Comment [Au tomated message] The (test code = Estimated syste m which generated % Lysis Rapid) this result t ransmitted reference range : <=7.5. The reference r mirela was not used to int erpret this result as normal/abnormal . [place] [address]-12-02 06:23:00 Test Item Value Reference Range Interpretation Comments Basophils # (test code 0.1 See_Comment [Aut omated message] The = Basophils #) system which generated this result tra nsmitted reference range : <=0.2. The reference r mirela was not used to int erpret this result as normal/abnormal . [place] [address]-12-02 06:23:00 Test Item Value Reference Range Interpretation Comments ACT (TEG) Rapid (test code = ACT (TEG) 89 s 86-118 Rapid) [address]12-02 06:23:00 Test Item Value Reference Range Interpretation Comments Split Point Rapid (test code = Split 0.3 min Point Rapid) [address]12-02 06:23:00 Test Item Value Reference Range Interpretation Comments R-time Rapid (test code = R-time 0.4 min 0.4-0.7 Rapid) [address]12-02 06:23:00 Test Item Value Reference Range Interpretation Comments K-time Rapid (test code = K-time 1.4 min 0.6-2.3 Rapid) [address]12-02 06:23:00 Test Item Value Reference Range Interpretation Comments Angle Rapid (test code = Angle 74 degrees 64-80 Rapid) [address]12-02 06:23:00 Test Item Value Reference Range Interpretation Comments Max Amplitude Rapid (test code = Max 63 mm 52-71 Amplitude Rapid) [address]12-02 06:23:00 Test Item Value Reference Range Interpretation Comments G-value Rapid (test code = G-value 8.5 5.0-11.6 Rapid) [facility] 06:23:00 Test Item Value Reference Range Interpretation Comments Estimated % Lysis Rapid 2.8 See_Comment [Au tomated message] The (test code = Estimated syste m which generated % Lysis Rapid) this result t ransmitted reference range : <=7.5. The reference r mirela was not used to int erpret this result as normal/abnormal . [place] 326012-12-02 06:23:00 Test Item Value Reference Range Interpretation Comments Total Protein (test code = Total 6.3 6.4-8.4 Protein) [place] 326012-12-02 06:23:00 Test Item Value Reference Range Interpretation Comments Albumin Lvl (test code = Albumin Lvl) 3.0 3.5-5.0 [place] 326012-12-02 06:23:00 Test Item Value Reference Range Interpretation Comments ALANINE AMINOTRANSFERASE 19 See_Comment [A utomated message] (test code = ALANINE The sys tem which AMINOTRANSFERASE) generated this result transmitted ref erence range: <=65. Th e reference range was not used to int erpret this result as normal/abnormal . [place] 326012-12-02 06:23:00 Test Item Value Reference Range Interpretation Comments AST (test code = AST) 14 See_Comment [Auto mated message] The system which ge nerated this result transmit sivakumar reference range : <=37. The reference range was not used to interpr et this result as lida l/abnormal. [place] 326012-12-02 06:23:00 Test Item Value Reference Range Interpretation Comments Alk Phos (test code = Alk Phos) 118 39-136 [place] [address]-12-02 06:23:00 Test Item Value Reference Range Interpretation Comments Bili Total (test code = Bili Total) 1.0 0.2-1.3 [place] [address]-12-02 06:23:00 Test Item Value Reference Range Interpretation Comments Bili Direct (test code 0.3 See_Comment [Aut omated message] The = Bili Direct) system which generated this result tra nsmitted reference range : <=0.3. The reference r mirela was not used to int erpret this result as lida l/abnormal. [place] 326012-12-02 06:23:00 Test Item Value Reference Range Interpretation Comments Bili Indirect (test 0.7 See_Comment [Automa sivakumar message] The code = Bili Indirect) system which generated this result tra nsmitted reference range : <=1.0. The reference r mirela was not used to int erpret this result as normal/abnormal . [place] 326012-12-02 06:23:00 Test Item Value Reference Range Interpretation Comments Globulin (test code = Globulin) 3.3 2.7-4.2 [facility] [id number] 06:23:00 Test Item Value Reference Range Interpretation Comments A/G Ratio (test code = A/G Ratio) 0.9 1 0.7-1.6 [place] 326012-12-02 06:23:00 Test Item Value Reference Range Interpretation Comments Lactic Acid Lvl (test code = Lactic 1.2 0.5-2.2 Acid Lvl) [place] [address]-12-02 06:23:00 Test Item Value Reference Range Interpretation Comments Total Protein (test code = Total 6.3 6.4-8.4 Protein) [place] [address]-12-02 06:23:00 Test Item Value Reference Range Interpretation Comments Albumin Lvl (test code = Albumin Lvl) 3.0 3.5-5.0 [place] 471482-12-02 06:23:00 Test Item Value Reference Range Interpretation Comments ALANINE AMINOTRANSFERASE 19 See_Comment [A utomated message] (test code = ALANINE The sys tem which AMINOTRANSFERASE) generated this result transmitted ref erence range: <=65. Th e reference range was not used to int erpret this result as normal/abnormal . [place] 471482-12-02 06:23:00 Test Item Value Reference Range Interpretation Comments AST (test code = AST) 14 See_Comment [Auto mated message] The system which ge nerated this result transmit sivakumar reference range : <=37. The reference range was not used to interpr et this result as lida l/abnormal. [facility] ShorelineTignotcNZSXVHGES9867-79-02 06:23:00 Test Item Value Reference Range Interpretation Comments Alk Phos (test code = Alk Phos) 118 39-136 [facility] SoutheastCncawphVGSEOIXTX9519-93-10 06:23:00 Test Item Value Reference Range Interpretation Comments Bili Total (test code = Bili Total) 1.0 0.2-1.3 [facility] SoutheastSorijhxKUBYOCZYJ8875-44-05 06:23:00 Test Item Value Reference Range Interpretation Comments Bili Direct (test code 0.3 See_Comment [Aut omated message] The = Bili Direct) system which generated this result tra nsmitted reference range : <=0.3. The reference r mirela was not used to int erpret this result as lida l/abnormal. [facility] SoutheastJzgupztJJMEWQTKJ6136-95-14 06:23:00 Test Item Value Reference Range Interpretation Comments Bili Indirect (test 0.7 See_Comment [Automa sivakumar message] The code = Bili Indirect) system which generated this result tra nsmitted reference range : <=1.0. The reference r mirela was not used to int erpret this result as normal/abnormal . [facility] SoutheastMvrnkjvLYFNVICMM6741-42-79 06:23:00 Test Item Value Reference Range Interpretation Comments Globulin (test code = Globulin) 3.3 2.7-4.2 [facility] SoutheastJedwherOPMPUSJDU9935-52-28 06:23:00 Test Item Value Reference Range Interpretation Comments A/G Ratio (test code = A/G Ratio) 0.9 1 0.7-1.6 [facility] SoutheastXqeddtkWGUSKEFTU6728-38-14 06:23:00 Test Item Value Reference Range Interpretation Comments pH David (test code = pH David) 7.39 1 7.28-7.42 [facility] SoutheastXzyycgcXNKALASUT8149-34-26 06:23:00 Test Item Value Reference Range Interpretation Comments pCO2 David (test code = pCO2 David) 35 38-52 [facility] SoutheastIjodixtDOIGFMEWT1220-51-36 06:23:00 Test Item Value Reference Range Interpretation Comments pO2 David (test code = pO2 David) 51 20-49 [facility] SoutheastPzozjhwSHJKXDUTD8661-64-33 06:23:00 Test Item Value Reference Range Interpretation Comments HCO3 David (test code = HCO3 David) 21 22-26 [facility] SoutheastYcepmsfOJAZTZUHP6374-17-04 06:23:00 Test Item Value Reference Range Interpretation Comments BE David (test code = BE David) -3 -2-2 [place] 471482-12-02 06:23:00 Test Item Value Reference Range Interpretation Comments O2 Sat David (calc) (test code = O2 Sat 85.3 40.0-70.0 David (calc)) [place] 471482-12-02 06:23:00 Test Item Value Reference Range Interpretation Comments Temp David (test code = Temp David) 37.0 [place] 765532-12-02 06:23:00 Test Item Value Reference Range Interpretation Comments ACT (TEG) Rapid (test code = ACT (TEG) 89 s 86-118 Rapid) [place] 765532-12-02 06:23:00 Test Item Value Reference Range Interpretation Comments Split Point Rapid (test code = Split 0.3 min Point Rapid) [place] [address]-12-02 06:23:00 Test Item Value Reference Range Interpretation Comments R-time Rapid (test code = R-time 0.4 min 0.4-0.7 Rapid) [place] [address]-12-02 06:23:00 Test Item Value Reference Range Interpretation Comments K-time Rapid (test code = K-time 1.4 min 0.6-2.3 Rapid) [place] 765532-12-02 06:23:00 Test Item Value Reference Range Interpretation Comments Angle Rapid (test code = Angle 74 degrees 64-80 Rapid) [place] [address]-12-02 06:23:00 Test Item Value Reference Range Interpretation Comments Max Amplitude Rapid (test code = Max 63 mm 52-71 Amplitude Rapid) [place] [address]-12-02 06:23:00 Test Item Value Reference Range Interpretation Comments G-value Rapid (test code = G-value 8.5 5.0-11.6 Rapid) [place] 765532-12-02 06:23:00 Test Item Value Reference Range Interpretation Comments Estimated % Lysis Rapid 2.8 See_Comment [Au tomated message] The (test code = Estimated syste m which generated % Lysis Rapid) this result t ransmitted reference range : <=7.5. The reference r mirela was not used to int erpret this result as normal/abnormal . [place] 765532-12-02 06:23:00 Test Item Value Reference Range Interpretation Comments Basophils # (test code 0.1 See_Comment [Aut omated message] The = Basophils #) system which generated this result tra nsmitted reference range : <=0.2. The reference r mirela was not used to int erpret this result as normal/abnormal . [place] 765532-12-02 06:23:00 Test Item Value Reference Range Interpretation Comments ACT (TEG) Rapid (test code = ACT (TEG) 89 s 86-118 Rapid) [place] 765532-12-02 06:23:00 Test Item Value Reference Range Interpretation Comments Split Point Rapid (test code = Split 0.3 min Point Rapid) [place] 765532-12-02 06:23:00 Test Item Value Reference Range Interpretation Comments R-time Rapid (test code = R-time 0.4 min 0.4-0.7 Rapid) [place] 765532-12-02 06:23:00 Test Item Value Reference Range Interpretation Comments K-time Rapid (test code = K-time 1.4 min 0.6-2.3 Rapid) [place] 765532-12-02 06:23:00 Test Item Value Reference Range Interpretation Comments Angle Rapid (test code = Angle 74 degrees 64-80 Rapid) [place] 765532-12-02 06:23:00 Test Item Value Reference Range Interpretation Comments Max Amplitude Rapid (test code = Max 63 mm 52-71 Amplitude Rapid) [place] 765532-12-02 06:23:00 Test Item Value Reference Range Interpretation Comments G-value Rapid (test code = G-value 8.5 5.0-11.6 Rapid) [place] [address]-12-02 06:23:00 Test Item Value Reference Range Interpretation Comments Estimated % Lysis Rapid 2.8 See_Comment [Au tomated message] The (test code = Estimated syste m which generated % Lysis Rapid) this result t ransmitted reference range : <=7.5. The reference r mirela was not used to int erpret this result as normal/abnormal . [facility] [id number] 10:42:00 Test Item Value Reference Range Interpretation Comments Lactic Acid Lvl (test code = Lactic 1.0 0.5-2.2 Acid Lvl) [facility]2022-09-18 10:42:00 Test Item Value Reference Range Interpretation Comments Lactic Acid Lvl (test code = Lactic 1.0 0.5-2.2 Acid Lvl) [place] 326012-09-18 10:42:00 Test Item Value Reference Range Interpretation Comments Lactic Acid Lvl (test code = Lactic 1.0 0.5-2.2 Acid Lvl) [place] 326012-09-18 10:42:00 Test Item Value Reference Range Interpretation Comments Lactic Acid Lvl (test code = Lactic 1.0 0.5-2.2 Acid Lvl) [facility]2022-09-18 10:42:00 Test Item Value Reference Range Interpretation Comments Lactic Acid Lvl (test code = Lactic 1.0 0.5-2.2 Acid Lvl) [facility]2022-09-17 08:57:00 Test Item Value Reference Range Interpretation Comments HS Troponin I (test code = HS Troponin 6 I) [facility]2022-09-17 08:57:00 Test Item Value Reference Range Interpretation Comments Lactic Acid Lvl (test code = Lactic 1.0 0.5-2.2 Acid Lvl) [facility]2022-09-17 08:57:00 Test Item Value Reference Range Interpretation Comments Glucose Lvl (test code = Glucose Lvl) 93 70-99 [place] 326012-09-17 08:57:00 Test Item Value Reference Range Interpretation Comments BUN (test code = BUN) 16 7-22 [facility]2022-09-17 08:57:00 Test Item Value Reference Range Interpretation Comments Creatinine Lvl (test code = Creatinine 0.75 0.50-1.40 Lvl) [facility]2022-09-17 08:57:00 Test Item Value Reference Range Interpretation Comments Sodium Lvl (test code = Sodium Lvl) 141 135-145 [place] 326012-09-17 08:57:00 Test Item Value Reference Range Interpretation Comments Potassium Lvl (test code = Potassium 3.5 3.5-5.1 Lvl) [place] 326012-09-17 08:57:00 Test Item Value Reference Range Interpretation Comments Chloride Lvl (test code = Chloride Lvl) 112 95-109 [facility]2022-09-17 08:57:00 Test Item Value Reference Range Interpretation Comments CO2 (test code = CO2) 24 24-32 [place] [address]-09-17 08:57:00 Test Item Value Reference Range Interpretation Comments Calcium Lvl (test code = Calcium Lvl) 7.9 8.5-10.5 [place] [address]-09-17 08:57:00 Test Item Value Reference Range Interpretation Comments Total Protein (test code = Total 5.0 6.4-8.4 Protein) [address]09-17 08:57:00 Test Item Value Reference Range Interpretation Comments Albumin Lvl (test code = Albumin Lvl) 2.2 3.5-5.0 [facility] [id number] 08:57:00 Test Item Value Reference Range Interpretation Comments ALT (test code = ALT) 15 See_Comment [Auto mated message] The system which ge nerated this result transmit sivakumar reference range : <=65. The reference range was not used to interpr et this result as lida l/abnormal. [address]09-17 08:57:00 Test Item Value Reference Range Interpretation Comments AST (test code = AST) 14 See_Comment [Auto mated message] The system which ge nerated this result transmit sivakumar reference range : <=37. The reference range was not used to interpr et this result as lida l/abnormal. [facility]lineLivestream [id number] 08:57:00 Test Item Value Reference Range Interpretation Comments Alk Phos (test code = Alk Phos) 115 39-136 [facility] [id number] 08:57:00 Test Item Value Reference Range Interpretation Comments Bili Total (test code = Bili Total) 1.2 0.2-1.3 [place] [address]-09-17 08:57:00 Test Item Value Reference Range Interpretation Comments AGAP (test code = AGAP) 8.5 10.0-20.0 [place] [address]-09-17 08:57:00 Test Item Value Reference Range Interpretation Comments B/C Ratio (test code = B/C Ratio) 21 1 6-25 [facility] [id number] 08:57:00 Test Item Value Reference Range Interpretation Comments Globulin (test code = Globulin) 2.8 2.7-4.[address]09-17 08:57:00 Test Item Value Reference Range Interpretation Comments A/G Ratio (test code = A/G Ratio) 0.8 1 0.7-1.6 [place] [address]-09-17 08:57:00 Test Item Value Reference Range Interpretation Comments eGFR (test code = eGFR) 86 [place] 326012-09-17 08:57:00 Test Item Value Reference Range Interpretation Comments Procalcitonin Lvl (test 0.05 See_Comment [Au tomated message] code = Procalcitonin Lvl) Th e system which generated this result transmitted ref erence range: <=0.10. The reference range was not used to interpr et this result as normal/abnormal . [place] [address]-09-17 08:57:00 Test Item Value Reference Range Interpretation Comments WBC (test code = WBC) 12.1 3.7-10.4 [place] [address]-09-17 08:57:00 Test Item Value Reference Range Interpretation Comments RBC (test code = RBC) 2.08 4.70-6.10 [place] [address]-09-17 08:57:00 Test Item Value Reference Range Interpretation Comments Hgb (test code = Hgb) 7.4 14.0-18.0 [place] [address]-09-17 08:57:00 Test Item Value Reference Range Interpretation Comments Hct (test code = Hct) 22.5 42.0-54.0 [place] [address]-09-17 08:57:00 Test Item Value Reference Range Interpretation Comments MCV (test code = MCV) 108.5 80.0-94.0 [place] [address]-09-17 08:57:00 Test Item Value Reference Range Interpretation Comments MCH (test code = MCH) 35.6 pg 27.0-31.0 [place] [address]-09-17 08:57:00 Test Item Value Reference Range Interpretation Comments MCHC (test code = MCHC) 32.8 32.0-36.0 [place] [address]-09-17 08:57:00 Test Item Value Reference Range Interpretation Comments RDW (test code = RDW) 14.3 11.5-14.5 [place] 765532-09-17 08:57:00 Test Item Value Reference Range Interpretation Comments Platelet (test code = Platelet) 378 133-450 [place] 765532-09-17 08:57:00 Test Item Value Reference Range Interpretation Comments MPV (test code = MPV) 7.2 7.4-10.4 [place] [address]-09-17 08:57:00 Test Item Value Reference Range Interpretation Comments Segs (test code = Segs) 85.3 45.0-75.0 [place] [address]-09-17 08:57:00 Test Item Value Reference Range Interpretation Comments Lymphocytes (test code = Lymphocytes) 5.0 20.0-40.0 [place] [address]-09-17 08:57:00 Test Item Value Reference Range Interpretation Comments Monocytes (test code = Monocytes) 8.1 2.0-12.0 [place] [address]-09-17 08:57:00 Test Item Value Reference Range Interpretation Comments Eosinophils (test code = 1.0 See_Comment [A utomated message] The Eosinophils) system which ge nerated this result tra nsmitted reference range : <=4.0. The reference r mirela was not used to int erpret this result as normal/abnormal . [place] [address]-09-17 08:57:00 Test Item Value Reference Range Interpretation Comments Basophils (test code = 0.6 See_Comment [Aut omated message] The Basophils) system which ge nerated this result tra nsmitted reference range : <=1.0. The reference r mirela was not used to int erpret this result as normal/abnormal . [place] [address]-09-17 08:57:00 Test Item Value Reference Range Interpretation Comments Neutrophils # (test code = Neutrophils 10.3 1.5-8.1 #) [place] [address]-09-17 08:57:00 Test Item Value Reference Range Interpretation Comments Lymphocytes # (test code = Lymphocytes 0.6 1.0-5.5 #) [place] [address]-09-17 08:57:00 Test Item Value Reference Range Interpretation Comments Monocytes # (test code 1.0 See_Comment [Aut omated message] The = Monocytes #) system which generated this result tra nsmitted reference range : <=0.8. The reference r mirela was not used to int erpret this result as normal/abnormal . [facility]Ceq[facility]noFKZOFXPHKI3317[facility] 08:57:00 Test Item Value Reference Range Interpretation Comments Eosinophils # (test code 0.1 See_Comment [A utomated message] The = Eosinophils #) system whic h generated this result tra nsmitted reference range : <=0.5. The reference r mirela was not used to int erpret this result as normal/abnormal . [facility]YxylrxrMBXSMZECAZ8035-84-30 08:57:00 Test Item Value Reference Range Interpretation Comments Basophils # (test code 0.1 See_Comment [Aut omated message] The = Basophils #) system which generated this result tra nsmitted reference range : <=0.2. The reference r mirela was not used to int erpret this result as normal/abnormal . [facility] HospitalDhblnkuFJVOZZJXRN3199-45-03 08:57:00 Test Item Value Reference Range Interpretation Comments Macrocyte (test code = 2+ *ABN*(07/02/22 Macrocyte) 3:57 AM) [facility] [id number] 08:57:00 Test Item Value Reference Range Interpretation Comments HS Troponin I (test code = HS Troponin 6 I) [facility] [id number] 08:57:00 Test Item Value Reference Range Interpretation Comments Lactic Acid Lvl (test code = Lactic 1.0 0.5-2.2 Acid Lvl) [facility] [id number] 08:57:00 Test Item Value Reference Range Interpretation Comments Glucose Lvl (test code = Glucose Lvl) 93 70-99 [facility] [id number] 08:57:00 Test Item Value Reference Range Interpretation Comments BUN (test code = BUN) 16 - [facility] [id number] 08:57:00 Test Item Value Reference Range Interpretation Comments Creatinine Lvl (test code = Creatinine 0.75 0.50-1.40 Lvl) [facility] [id number] 08:57:00 Test Item Value Reference Range Interpretation Comments Sodium Lvl (test code = Sodium Lvl) 141 135-145 [facility] [id number] 08:57:00 Test Item Value Reference Range Interpretation Comments Potassium Lvl (test code = Potassium 3.5 3.5-5.1 Lvl) [place] [address]-09-17 08:57:00 Test Item Value Reference Range Interpretation Comments Chloride Lvl (test code = Chloride Lvl) 112 95-109 [facility] HospitalTelesocialTIMOTHY V[place] [id number] 08:57:00 Test Item Value Reference Range Interpretation Comments CO2 (test code = CO2) 24 24-32 [place] [address]-09-17 08:57:00 Test Item Value Reference Range Interpretation Comments Calcium Lvl (test code = Calcium Lvl) 7.9 8.5-10.5 [facility] [id number] 08:57:00 Test Item Value Reference Range Interpretation Comments Total Protein (test code = Total 5.0 6.4-8.4 Protein) [place] [address]-09-17 08:57:00 Test Item Value Reference Range Interpretation Comments Albumin Lvl (test code = Albumin Lvl) 2.2 3.5-5.0 [facility] [id number] 08:57:00 Test Item Value Reference Range Interpretation Comments ALT (test code = ALT) 15 See_Comment [Auto mated message] The system which ge nerated this result transmit sivakumar reference range : <=65. The reference range was not used to interpr et this result as lida l/abnormal. [facility] [id number] 08:57:00 Test Item Value Reference Range Interpretation Comments AST (test code = AST) 14 See_Comment [Auto mated message] The system which ge nerated this result transmit sivakumar reference range : <=37. The reference range was not used to interpr et this result as lida l/abnormal. [facility] [id number] 08:57:00 Test Item Value Reference Range Interpretation Comments Alk Phos (test code = Alk Phos) 115 39-136 [place] [address]-09-17 08:57:00 Test Item Value Reference Range Interpretation Comments Bili Total (test code = Bili Total) 1.2 0.2-1.3 [facility] [id number] 08:57:00 Test Item Value Reference Range Interpretation Comments AGAP (test code = AGAP) 8.5 10.0-20.0 [place] 326012-09-17 08:57:00 Test Item Value Reference Range Interpretation Comments B/C Ratio (test code = B/C Ratio) 21 1 6-25 [place] 326012-09-17 08:57:00 Test Item Value Reference Range Interpretation Comments Globulin (test code = Globulin) 2.8 2.7-4.2 [place] 326012-09-17 08:57:00 Test Item Value Reference Range Interpretation Comments A/G Ratio (test code = A/G Ratio) 0.8 1 0.7-1.6 [place] [address]-09-17 08:57:00 Test Item Value Reference Range Interpretation Comments eGFR (test code = eGFR) 86 [place] 326012-09-17 08:57:00 Test Item Value Reference Range Interpretation Comments Procalcitonin Lvl (test 0.05 See_Comment [Au tomated message] code = Procalcitonin Lvl) e system which generated this result transmitted ref erence range: <=0.10. The reference range was not used to interpr et this result as normal/abnormal . [id number] 08:57:00 Test Item Value Reference Range Interpretation Comments WBC (test code = WBC) 12.1 3.7-10.4 [place] 765532-09-17 08:57:00 Test Item Value Reference Range Interpretation Comments RBC (test code = RBC) 2.08 4.70-6.10 [place] 765532-09-17 08:57:00 Test Item Value Reference Range Interpretation Comments Hgb (test code = Hgb) 7.4 14.0-18.0 [place] [address]-09-17 08:57:00 Test Item Value Reference Range Interpretation Comments Hct (test code = Hct) 22.5 42.0-54.0 [place] 765532-09-17 08:57:00 Test Item Value Reference Range Interpretation Comments MCV (test code = MCV) 108.5 80.0-94.0 [place] [address]-09-17 08:57:00 Test Item Value Reference Range Interpretation Comments MCH (test code = MCH) 35.6 pg 27.0-31.0 [place] [address]-09-17 08:57:00 Test Item Value Reference Range Interpretation Comments MCHC (test code = MCHC) 32.8 32.0-36.0 [place] [address]-09-17 08:57:00 Test Item Value Reference Range Interpretation Comments RDW (test code = RDW) 14.3 11.5-14.5 [place] [address]-09-17 08:57:00 Test Item Value Reference Range Interpretation Comments Platelet (test code = Platelet) 378 133-450 [place] 765532-09-17 08:57:00 Test Item Value Reference Range Interpretation Comments MPV (test code = MPV) 7.2 7.4-10.4 [place] [address]-09-17 08:57:00 Test Item Value Reference Range Interpretation Comments Segs (test code = Segs) 85.3 45.0-75.0 [place] [address]-09-17 08:57:00 Test Item Value Reference Range Interpretation Comments Lymphocytes (test code = Lymphocytes) 5.0 20.0-40.0 [place] [address]-09-17 08:57:00 Test Item Value Reference Range Interpretation Comments Monocytes (test code = Monocytes) 8.1 2.0-12.0 [place] [address]-09-17 08:57:00 Test Item Value Reference Range Interpretation Comments Eosinophils (test code = 1.0 See_Comment [A utomated message] The Eosinophils) system which ge nerated this result tra nsmitted reference range : <=4.0. The reference r mirela was not used to int erpret this result as normal/abnormal . [place] [address]-09-17 08:57:00 Test Item Value Reference Range Interpretation Comments Basophils (test code = 0.6 See_Comment [Aut omated message] The Basophils) system which ge nerated this result tra nsmitted reference range : <=1.0. The reference r mirela was not used to int erpret this result as normal/abnormal . [place] [address]-09-17 08:57:00 Test Item Value Reference Range Interpretation Comments Neutrophils # (test code = Neutrophils 10.3 1.5-8.1 #) [place] [address]-09-17 08:57:00 Test Item Value Reference Range Interpretation Comments Lymphocytes # (test code = Lymphocytes 0.6 1.0-5.5 #) [facility]QgzpccwXMNUCGYIVR9088-20-20 08:57:00 Test Item Value Reference Range Interpretation Comments Monocytes # (test code 1.0 See_Comment [Aut omated message] The = Monocytes #) system which generated this result tra nsmitted reference range : <=0.8. The reference r mirela was not used to int erpret this result as normal/abnormal . [facility] HospitalHdquscnSHMRQMYPDL5438-38-45 08:57:00 Test Item Value Reference Range Interpretation Comments Eosinophils # (test code 0.1 See_Comment [A utomated message] The = Eosinophils #) system whic h generated this result tra nsmitted reference range : <=0.5. The reference r mirela was not used to int erpret this result as normal/abnormal . [facility] HospitalLricuurBKAZWOXZGY7193-35-93 08:57:00 Test Item Value Reference Range Interpretation Comments Basophils # (test code 0.1 See_Comment [Aut omated message] The = Basophils #) system which generated this result tra nsmitted reference range : <=0.2. The reference r mirela was not used to int erpret this result as normal/abnormal . [facility] HospitalRnzlhyxEHBYVJYSHG0557-18-52 08:57:00 Test Item Value Reference Range Interpretation Comments Macrocyte (test code = 2+ *ABN*(07/02/22 Macrocyte) 3:57 AM) [facility]lineStormMQHILLSDALE [id number] 08:57:00 Test Item Value Reference Range Interpretation Comments HS Troponin I (test code = HS Troponin 6 I) [facility]DPS[facility] [id number] 08:57:00 Test Item Value Reference Range Interpretation Comments Lactic Acid Lvl (test code = Lactic 1.0 0.5-2.2 Acid Lvl) [facility]lineStormMQ [id number] 08:57:00 Test Item Value Reference Range Interpretation Comments HS Troponin I (test code = HS Troponin 6 I) [facility]DPS[facility] [id number] 08:57:00 Test Item Value Reference Range Interpretation Comments Lactic Acid Lvl (test code = Lactic 1.0 0.5-2.2 Acid Lvl) [facility]DPS[facility] [id number] 08:57:00 Test Item Value Reference Range Interpretation Comments Glucose Lvl (test code = Glucose Lvl) 93 70-99 [place] 326012-09-17 08:57:00 Test Item Value Reference Range Interpretation Comments BUN (test code = BUN) 16 7-22 [place] 326012-09-17 08:57:00 Test Item Value Reference Range Interpretation Comments Glucose Lvl (test code = Glucose Lvl) 93 70-99 [place] 326012-09-17 08:57:00 Test Item Value Reference Range Interpretation Comments Creatinine Lvl (test code = Creatinine 0.75 0.50-1.40 Lvl) [place] 326012-09-17 08:57:00 Test Item Value Reference Range Interpretation Comments Sodium Lvl (test code = Sodium Lvl) 141 135-145 [place] 326012-09-17 08:57:00 Test Item Value Reference Range Interpretation Comments Potassium Lvl (test code = Potassium 3.5 3.5-5.1 Lvl) [place] 326012-09-17 08:57:00 Test Item Value Reference Range Interpretation Comments Chloride Lvl (test code = Chloride Lvl) 112 95-109 [place] 326012-09-17 08:57:00 Test Item Value Reference Range Interpretation Comments CO2 (test code = CO2) 24 24-32 [place] 326012-09-17 08:57:00 Test Item Value Reference Range Interpretation Comments Calcium Lvl (test code = Calcium Lvl) 7.9 8.5-10.5 [place] 326012-09-17 08:57:00 Test Item Value Reference Range Interpretation Comments Total Protein (test code = Total 5.0 6.4-8.4 Protein) [place] 326012-09-17 08:57:00 Test Item Value Reference Range Interpretation Comments Albumin Lvl (test code = Albumin Lvl) 2.2 3.5-5.0 [place] 326012-09-17 08:57:00 Test Item Value Reference Range Interpretation Comments ALT (test code = ALT) 15 See_Comment [Auto mated message] The system which ge nerated this result transmit sivakumar reference range : <=65. The reference range was not used to interpr et this result as lida l/abnormal. [place] 326012-09-17 08:57:00 Test Item Value Reference Range Interpretation Comments AST (test code = AST) 14 See_Comment [Auto mated message] The system which ge nerated this result transmit sivakumar reference range : <=37. The reference range was not used to interpr et this result as lida l/abnormal. [place] 326012-09-17 08:57:00 Test Item Value Reference Range Interpretation Comments BUN (test code = BUN) 16 7-22 [place] 326012-09-17 08:57:00 Test Item Value Reference Range Interpretation Comments Alk Phos (test code = Alk Phos) 115 39-136 [place] 326012-09-17 08:57:00 Test Item Value Reference Range Interpretation Comments Bili Total (test code = Bili Total) 1.2 0.2-1.3 [place] [address]-09-17 08:57:00 Test Item Value Reference Range Interpretation Comments AGAP (test code = AGAP) 8.5 10.0-20.0 [place] 326012-09-17 08:57:00 Test Item Value Reference Range Interpretation Comments B/C Ratio (test code = B/C Ratio) 21 1 6-25 [place] 326012-09-17 08:57:00 Test Item Value Reference Range Interpretation Comments Globulin (test code = Globulin) 2.8 2.7-4.2 [place] 326012-09-17 08:57:00 Test Item Value Reference Range Interpretation Comments A/G Ratio (test code = A/G Ratio) 0.8 1 0.7-1.6 [place] [address]-09-17 08:57:00 Test Item Value Reference Range Interpretation Comments eGFR (test code = eGFR) 86 [place] [address]-09-17 08:57:00 Test Item Value Reference Range Interpretation Comments Procalcitonin Lvl (test 0.05 See_Comment [Au tomated message] code = Procalcitonin Lvl) Th e system which generated this result transmitted ref erence range: <=0.10. The reference range was not used to interpr et this result as normal/abnormal . [place] 765532-09-17 08:57:00 Test Item Value Reference Range Interpretation Comments WBC (test code = WBC) 12.1 3.7-10.4 [place] 765532-09-17 08:57:00 Test Item Value Reference Range Interpretation Comments RBC (test code = RBC) 2.08 4.70-6.10 [facility]2022-09-17 08:57:00 Test Item Value Reference Range Interpretation Comments Creatinine Lvl (test code = Creatinine 0.75 0.50-1.40 Lvl) [facility] HospitalVvulvoxUXGGGADROU0255-54-70 08:57:00 Test Item Value Reference Range Interpretation Comments Hgb (test code = Hgb) 7.4 14.0-18.0 [place] 765532-09-17 08:57:00 Test Item Value Reference Range Interpretation Comments Hct (test code = Hct) 22.5 42.0-54.0 [place] 765532-09-17 08:57:00 Test Item Value Reference Range Interpretation Comments MCV (test code = MCV) 108.5 80.0-94.0 [place] 765532-09-17 08:57:00 Test Item Value Reference Range Interpretation Comments MCH (test code = MCH) 35.6 pg 27.0-31.0 [facility] HospitalBzsysnkQHXMWTFQXY4704-42-78 08:57:00 Test Item Value Reference Range Interpretation Comments MCHC (test code = MCHC) 32.8 32.0-36.0 [place] 765532-09-17 08:57:00 Test Item Value Reference Range Interpretation Comments RDW (test code = RDW) 14.3 11.5-14.5 [place] 765532-09-17 08:57:00 Test Item Value Reference Range Interpretation Comments Platelet (test code = Platelet) 378 133-450 [facility] HospitalTilfzgcRCLUPPOGYF7609-86-91 08:57:00 Test Item Value Reference Range Interpretation Comments MPV (test code = MPV) 7.2 7.4-10.4 [place] 765532-09-17 08:57:00 Test Item Value Reference Range Interpretation Comments Segs (test code = Segs) 85.3 45.0-75.0 [place] 765532-09-17 08:57:00 Test Item Value Reference Range Interpretation Comments Lymphocytes (test code = Lymphocytes) 5.0 20.0-40.0 [facility]2022-09-17 08:57:00 Test Item Value Reference Range Interpretation Comments Sodium Lvl (test code = Sodium Lvl) 141 135-145 [place] 765532-09-17 08:57:00 Test Item Value Reference Range Interpretation Comments Monocytes (test code = Monocytes) 8.1 2.0-12.0 [place] [address]-09-17 08:57:00 Test Item Value Reference Range Interpretation Comments Eosinophils (test code = 1.0 See_Comment [A utomated message] The Eosinophils) system which ge nerated this result tra nsmitted reference range : <=4.0. The reference r mirela was not used to int erpret this result as normal/abnormal . [place] [address]-09-17 08:57:00 Test Item Value Reference Range Interpretation Comments Basophils (test code = 0.6 See_Comment [Aut omated message] The Basophils) system which ge nerated this result tra nsmitted reference range : <=1.0. The reference r mirela was not used to int erpret this result as normal/abnormal . [place] [address]-09-17 08:57:00 Test Item Value Reference Range Interpretation Comments Neutrophils # (test code = Neutrophils 10.3 1.5-8.1 #) [place] [address]-09-17 08:57:00 Test Item Value Reference Range Interpretation Comments Lymphocytes # (test code = Lymphocytes 0.6 1.0-5.5 #) [place] [address]-09-17 08:57:00 Test Item Value Reference Range Interpretation Comments Monocytes # (test code 1.0 See_Comment [Aut omated message] The = Monocytes #) system which generated this result tra nsmitted reference range : <=0.8. The reference r mirela was not used to int erpret this result as normal/abnormal . [place] [address]-09-17 08:57:00 Test Item Value Reference Range Interpretation Comments Eosinophils # (test code 0.1 See_Comment [A utomated message] The = Eosinophils #) system whic h generated this result tra nsmitted reference range : <=0.5. The reference r mirela was not used to int erpret this result as normal/abnormal . [place] [address]-09-17 08:57:00 Test Item Value Reference Range Interpretation Comments Basophils # (test code 0.1 See_Comment [Aut omated message] The = Basophils #) system which generated this result tra nsmitted reference range : <=0.2. The reference r mirela was not used to int erpret this result as normal/abnormal . [place] [address]-09-17 08:57:00 Test Item Value Reference Range Interpretation Comments Macrocyte (test code = 2+ *ABN*(07/02/22 Macrocyte) 3:57 AM) [place] [address]-09-17 08:57:00 Test Item Value Reference Range Interpretation Comments Potassium Lvl (test code = Potassium 3.5 3.5-5.1 Lvl) [place] 326012-09-17 08:57:00 Test Item Value Reference Range Interpretation Comments Chloride Lvl (test code = Chloride Lvl) 112 95-109 [facility] [id number] 08:57:00 Test Item Value Reference Range Interpretation Comments CO2 (test code = CO2) 24 24-32 [place] [address]-09-17 08:57:00 Test Item Value Reference Range Interpretation Comments Calcium Lvl (test code = Calcium Lvl) 7.9 8.5-10.5 [place] 326012-09-17 08:57:00 Test Item Value Reference Range Interpretation Comments Total Protein (test code = Total 5.0 6.4-8.4 Protein) [place] 326012-09-17 08:57:00 Test Item Value Reference Range Interpretation Comments Albumin Lvl (test code = Albumin Lvl) 2.2 3.5-5.0 [place] [address]-09-17 08:57:00 Test Item Value Reference Range Interpretation Comments ALT (test code = ALT) 15 See_Comment [Auto mated message] The system which ge nerated this result transmit sivakumar reference range : <=65. The reference range was not used to interpr et this result as lida l/abnormal. [facility] [id number] 08:57:00 Test Item Value Reference Range Interpretation Comments AST (test code = AST) 14 See_Comment [Auto mated message] The system which ge nerated this result transmit sivakumar reference range : <=37. The reference range was not used to interpr et this result as lida l/abnormal. [facility] [id number] 08:57:00 Test Item Value Reference Range Interpretation Comments Alk Phos (test code = Alk Phos) 115 39-136 [place] [address]-09-17 08:57:00 Test Item Value Reference Range Interpretation Comments Bili Total (test code = Bili Total) 1.2 0.2-1.3 [place] [address]-09-17 08:57:00 Test Item Value Reference Range Interpretation Comments AGAP (test code = AGAP) 8.5 10.0-20.0 [facility] HospitalTelesocialTIMOTHY [place] [id number] 08:57:00 Test Item Value Reference Range Interpretation Comments B/C Ratio (test code = B/C Ratio) 21 1 6-[address]09-17 08:57:00 Test Item Value Reference Range Interpretation Comments Globulin (test code = Globulin) 2.8 2.7-4.2 [place] [address]-09-17 08:57:00 Test Item Value Reference Range Interpretation Comments A/G Ratio (test code = A/G Ratio) 0.8 1 0.7-1.6 [place] [address]-09-17 08:57:00 Test Item Value Reference Range Interpretation Comments eGFR (test code = eGFR) 86 [place] [address]-09-17 08:57:00 Test Item Value Reference Range Interpretation Comments Procalcitonin Lvl (test 0.05 See_Comment [Au tomated message] code = Procalcitonin Lvl) e system which generated this result transmitted ref erence range: <=0.10. The reference range was not used to interpr et this result as normal/abnormal . [facility] ShorelineSmjtlozHCWZICUTMH5310-03-82 08:57:00 Test Item Value Reference Range Interpretation Comments WBC (test code = WBC) 12.1 3.7-10.4 [place] [address]-09-17 08:57:00 Test Item Value Reference Range Interpretation Comments RBC (test code = RBC) 2.08 4.70-6.10 [place] [address]-09-17 08:57:00 Test Item Value Reference Range Interpretation Comments Hgb (test code = Hgb) 7.4 14.0-18.0 [place] [address]-09-17 08:57:00 Test Item Value Reference Range Interpretation Comments Hct (test code = Hct) 22.5 42.0-54.0 [place] 765532-09-17 08:57:00 Test Item Value Reference Range Interpretation Comments MCV (test code = MCV) 108.5 80.0-94.0 [place] [address]-09-17 08:57:00 Test Item Value Reference Range Interpretation Comments MCH (test code = MCH) 35.6 pg 27.0-31.0 [place] [address]-09-17 08:57:00 Test Item Value Reference Range Interpretation Comments MCHC (test code = MCHC) 32.8 32.0-36.0 [place] [address]-09-17 08:57:00 Test Item Value Reference Range Interpretation Comments RDW (test code = RDW) 14.3 11.5-14.5 [place] [address]-09-17 08:57:00 Test Item Value Reference Range Interpretation Comments Platelet (test code = Platelet) 378 133-450 [place] 765532-09-17 08:57:00 Test Item Value Reference Range Interpretation Comments MPV (test code = MPV) 7.2 7.4-10.4 [place] [address]-09-17 08:57:00 Test Item Value Reference Range Interpretation Comments Segs (test code = Segs) 85.3 45.0-75.0 [place] [address]-09-17 08:57:00 Test Item Value Reference Range Interpretation Comments Lymphocytes (test code = Lymphocytes) 5.0 20.0-40.0 [place] [address]-09-17 08:57:00 Test Item Value Reference Range Interpretation Comments Monocytes (test code = Monocytes) 8.1 2.0-12.0 [place] [address]-09-17 08:57:00 Test Item Value Reference Range Interpretation Comments Eosinophils (test code = 1.0 See_Comment [A utomated message] The Eosinophils) system which ge nerated this result tra nsmitted reference range : <=4.0. The reference r mirela was not used to int erpret this result as normal/abnormal . [facility] HospitalVjotkhpWSMBARQQTV7432-80-83 08:57:00 Test Item Value Reference Range Interpretation Comments Basophils (test code = 0.6 See_Comment [Aut omated message] The Basophils) system which ge nerated this result tra nsmitted reference range : <=1.0. The reference r mirela was not used to int erpret this result as normal/abnormal . [facility] HospitalQbflowdKDLESFMZLH7389-29-25 08:57:00 Test Item Value Reference Range Interpretation Comments Neutrophils # (test code = Neutrophils 10.3 1.5-8.1 #) [facility] HospitalJkoobojCGCUPPPMMM4260-90-51 08:57:00 Test Item Value Reference Range Interpretation Comments Lymphocytes # (test code = Lymphocytes 0.6 1.0-5.5 #) [facility] HospitalEgyetooURBRTWFLLY2859-21-34 08:57:00 Test Item Value Reference Range Interpretation Comments Monocytes # (test code 1.0 See_Comment [Aut omated message] The = Monocytes #) system which generated this result tra nsmitted reference range : <=0.8. The reference r mirela was not used to int erpret this result as normal/abnormal . [facility] HospitalDslosllEHLSQLTIVH9055-95-62 08:57:00 Test Item Value Reference Range Interpretation Comments Eosinophils # (test code 0.1 See_Comment [A utomated message] The = Eosinophils #) system whic h generated this result tra nsmitted reference range : <=0.5. The reference r mirela was not used to int erpret this result as normal/abnormal . [facility] HospitalQpyedkkEMOWJZSKFN4299-98-77 08:57:00 Test Item Value Reference Range Interpretation Comments Basophils # (test code 0.1 See_Comment [Aut omated message] The = Basophils #) system which generated this result tra nsmitted reference range : <=0.2. The reference r mirela was not used to int erpret this result as normal/abnormal . [facility] HospitalIagtkklUYZHTXSFIP3419-73-05 08:57:00 Test Item Value Reference Range Interpretation Comments Macrocyte (test code = 2+ *ABN*(07/02/22 Macrocyte) 3:57 AM) [facility]DI[id number] 08:57:00 Test Item Value Reference Range Interpretation Comments HS Troponin I (test code = HS Troponin 6 I) [place] [address]-09-17 08:57:00 Test Item Value Reference Range Interpretation Comments Lactic Acid Lvl (test code = Lactic 1.0 0.5-2.2 Acid Lvl) [place] [address]-09-17 08:57:00 Test Item Value Reference Range Interpretation Comments Glucose Lvl (test code = Glucose Lvl) 93 70-99 [place] [address]-09-17 08:57:00 Test Item Value Reference Range Interpretation Comments BUN (test code = BUN) 16 7-22 [place] [address]-09-17 08:57:00 Test Item Value Reference Range Interpretation Comments Creatinine Lvl (test code = Creatinine 0.75 0.50-1.40 Lvl) [place] [address]-09-17 08:57:00 Test Item Value Reference Range Interpretation Comments Sodium Lvl (test code = Sodium Lvl) 141 135-145 [place] [address]-09-17 08:57:00 Test Item Value Reference Range Interpretation Comments Potassium Lvl (test code = Potassium 3.5 3.5-5.1 Lvl) [place] [address]-09-17 08:57:00 Test Item Value Reference Range Interpretation Comments Chloride Lvl (test code = Chloride Lvl) 112 95-109 [place] [address]-09-17 08:57:00 Test Item Value Reference Range Interpretation Comments CO2 (test code = CO2) 24 24-32 [place] [address]-09-17 08:57:00 Test Item Value Reference Range Interpretation Comments Calcium Lvl (test code = Calcium Lvl) 7.9 8.5-10.5 [place] 326012-09-17 08:57:00 Test Item Value Reference Range Interpretation Comments Total Protein (test code = Total 5.0 6.4-8.4 Protein) [place] [address]-09-17 08:57:00 Test Item Value Reference Range Interpretation Comments Albumin Lvl (test code = Albumin Lvl) 2.2 3.5-5.0 [place] [address]-09-17 08:57:00 Test Item Value Reference Range Interpretation Comments ALT (test code = ALT) 15 See_Comment [Auto mated message] The system which ge nerated this result transmit sivakumar reference range : <=65. The reference range was not used to interpr et this result as lida l/abnormal. [place] [address]-09-17 08:57:00 Test Item Value Reference Range Interpretation Comments AST (test code = AST) 14 See_Comment [Auto mated message] The system which ge nerated this result transmit sivakumar reference range : <=37. The reference range was not used to interpr et this result as lida l/abnormal. [place] [address]-09-17 08:57:00 Test Item Value Reference Range Interpretation Comments Alk Phos (test code = Alk Phos) 115 39-136 [address]09-17 08:57:00 Test Item Value Reference Range Interpretation Comments Bili Total (test code = Bili Total) 1.2 0.2-1.3 [place] [address]-09-17 08:57:00 Test Item Value Reference Range Interpretation Comments AGAP (test code = AGAP) 8.5 10.0-20.0 [address]09-17 08:57:00 Test Item Value Reference Range Interpretation Comments B/C Ratio (test code = B/C Ratio) 21 1 6-[address]09-17 08:57:00 Test Item Value Reference Range Interpretation Comments Globulin (test code = Globulin) 2.8 2.7-4.2 [place] [address]-09-17 08:57:00 Test Item Value Reference Range Interpretation Comments A/G Ratio (test code = A/G Ratio) 0.8 1 0.7-1.6 [place] [address]-09-17 08:57:00 Test Item Value Reference Range Interpretation Comments eGFR (test code = eGFR) [address]09-17 08:57:00 Test Item Value Reference Range Interpretation Comments Procalcitonin Lvl (test 0.05 See_Comment [Au tomated message] code = Procalcitonin Lvl) Th e system which generated this result transmitted ref erence range: <=0.10. The reference range was not used to interpr et this result as normal/abnormal . [place]65532-09-17 08:57:00 Test Item Value Reference Range Interpretation Comments WBC (test code = WBC) 12.1 3.7-10.4 [id number] 08:57:00 Test Item Value Reference Range Interpretation Comments RBC (test code = RBC) 2.08 4.70-6.10 [facility] HospitalRjqikssHHGJCUCWRD0991-91-53 08:57:00 Test Item Value Reference Range Interpretation Comments Hgb (test code = Hgb) 7.4 14.0-18.0 [facility] HospitalLsamacpIEHPVUABQE7919-95-23 08:57:00 Test Item Value Reference Range Interpretation Comments Hct (test code = Hct) 22.5 42.0-54.0 [facility] HospitalTvopfpwKCPUXQKZVC3789-70-53 08:57:00 Test Item Value Reference Range Interpretation Comments MCV (test code = MCV) 108.5 80.0-94.0 [facility] HospitalHcauzwxOXNIAKJPMO9724-43-80 08:57:00 Test Item Value Reference Range Interpretation Comments MCH (test code = MCH) 35.6 pg 27.0-31.0 [facility] HospitalBpsmgalASMGMFQAPP0094-04-54 08:57:00 Test Item Value Reference Range Interpretation Comments MCHC (test code = MCHC) 32.8 32.0-36.0 [facility] HospitalF[id number] 08:57:00 Test Item Value Reference Range Interpretation Comments RDW (test code = RDW) 14.3 11.5-14.5 [facility] Hospit[id number] 08:57:00 Test Item Value Reference Range Interpretation Comments Platelet (test code = Platelet) 378 133-450 [facility] HospitalZsmnockPWVTDAHOPZ8176-62-61 08:57:00 Test Item Value Reference Range Interpretation Comments MPV (test code = MPV) 7.2 7.4-10.4 [place] 765532-09-17 08:57:00 Test Item Value Reference Range Interpretation Comments Segs (test code = Segs) 85.3 45.0-75.0 [facility] HospitalThmfshuGNBSPCCIOX1971-35-21 08:57:00 Test Item Value Reference Range Interpretation Comments Lymphocytes (test code = Lymphocytes) 5.0 20.0-40.0 [facility] HospitalTunqbyiVNCCBBOEHE2323-82-34 08:57:00 Test Item Value Reference Range Interpretation Comments Monocytes (test code = Monocytes) 8.1 2.0-12.0 [address]09-17 08:57:00 Test Item Value Reference Range Interpretation Comments Eosinophils (test code = 1.0 See_Comment [A utomated message] The Eosinophils) system which ge nerated this result tra nsmitted reference range : <=4.0. The reference r mirela was not used to int erpret this result as normal/abnormal . [address]09-17 08:57:00 Test Item Value Reference Range Interpretation Comments Basophils (test code = 0.6 See_Comment [Aut omated message] The Basophils) system which ge nerated this result tra nsmitted reference range : <=1.0. The reference r mirela was not used to int erpret this result as normal/abnormal . [address]09-17 08:57:00 Test Item Value Reference Range Interpretation Comments Neutrophils # (test code = Neutrophils 10.3 1.5-8.1 #) [address]09-17 08:57:00 Test Item Value Reference Range Interpretation Comments Lymphocytes # (test code = Lymphocytes 0.6 1.0-5.5 #) [address]09-17 08:57:00 Test Item Value Reference Range Interpretation Comments Monocytes # (test code 1.0 See_Comment [Aut omated message] The = Monocytes #) system which generated this result tra nsmitted reference range : <=0.8. The reference r mirela was not used to int erpret this result as normal/abnormal . [place] [address]-09-17 08:57:00 Test Item Value Reference Range Interpretation Comments Eosinophils # (test code 0.1 See_Comment [A utomated message] The = Eosinophils #) system whic h generated this result tra nsmitted reference range : <=0.5. The reference r mirela was not used to int erpret this result as normal/abnormal . [address]09-17 08:57:00 Test Item Value Reference Range Interpretation Comments Basophils # (test code 0.1 See_Comment [Aut omated message] The = Basophils #) system which generated this result tra nsmitted reference range : <=0.2. The reference r mirela was not used to int erpret this result as normal/abnormal . [address]09-17 08:57:00 Test Item Value Reference Range Interpretation Comments Macrocyte (test code = 2+ *ABN*(07/02/22 Macrocyte) 3:57 AM) [place] [address]-09-16 19:02:00 Test Item Value Reference Range Interpretation Comments Lactic Acid Lvl (test code = Lactic 1.3 0.5-2.2 Acid Lvl) [place] 326012-09-16 19:02:00 Test Item Value Reference Range Interpretation Comments Lactic Acid Lvl (test code = Lactic 1.3 0.5-2.2 Acid Lvl) [place] [address]-09-16 19:02:00 Test Item Value Reference Range Interpretation Comments Lactic Acid Lvl (test code = Lactic 1.3 0.5-2.2 Acid Lvl) [place] 326012-09-16 19:02:00 Test Item Value Reference Range Interpretation Comments Lactic Acid Lvl (test code = Lactic 1.3 0.5-2.2 Acid Lvl) [place] [address]-09-16 19:02:00 Test Item Value Reference Range Interpretation Comments Lactic Acid Lvl (test code = Lactic 1.3 0.5-2.2 Acid Lvl) [place] 326012-09-16 09:15:00 Test Item Value Reference Range Interpretation Comments Glucose Lvl (test code = Glucose Lvl) 107 70-99 [place] 326012-09-16 09:15:00 Test Item Value Reference Range Interpretation Comments BUN (test code = BUN) 21 7-22 [place] 326012-09-16 09:15:00 Test Item Value Reference Range Interpretation Comments Creatinine Lvl (test code = Creatinine 0.91 0.50-1.40 Lvl) [place] 326012-09-16 09:15:00 Test Item Value Reference Range Interpretation Comments Sodium Lvl (test code = Sodium Lvl) 141 135-145 [place] 326012-09-16 09:15:00 Test Item Value Reference Range Interpretation Comments Potassium Lvl (test code = Potassium 3.3 3.5-5.1 Lvl) [place] 326012-09-16 09:15:00 Test Item Value Reference Range Interpretation Comments Chloride Lvl (test code = Chloride Lvl) 112 95-109 [place] 326012-09-16 09:15:00 Test Item Value Reference Range Interpretation Comments CO2 (test code = CO2) 24 24-32 [place] [address]-09-16 09:15:00 Test Item Value Reference Range Interpretation Comments AGAP (test code = AGAP) 8.3 10.0-20.0 [place] 326012-09-16 09:15:00 Test Item Value Reference Range Interpretation Comments Calcium Lvl (test code = Calcium Lvl) 8.4 8.5-10.5 [place] [address]-09-16 09:15:00 Test Item Value Reference Range Interpretation Comments B/C Ratio (test code = B/C Ratio) 23 1 6-25 [place] [address]-09-16 09:15:00 Test Item Value Reference Range Interpretation Comments Total Protein (test code = Total 5.4 6.4-8.4 Protein) [place] [address]-09-16 09:15:00 Test Item Value Reference Range Interpretation Comments Albumin Lvl (test code = Albumin Lvl) 2.4 3.5-5.0 [place] 326012-09-16 09:15:00 Test Item Value Reference Range Interpretation Comments Globulin (test code = Globulin) 3.0 2.7-4.2 [place] [address]-09-16 09:15:00 Test Item Value Reference Range Interpretation Comments A/G Ratio (test code = A/G Ratio) 0.8 1 0.7-1.6 [place] [address]-09-16 09:15:00 Test Item Value Reference Range Interpretation Comments ALT (test code = ALT) 15 See_Comment [Auto mated message] The system which ge nerated this result transmit sivakumar reference range : <=65. The reference range was not used to interpr et this result as lida l/abnormal. [place] 326012-09-16 09:15:00 Test Item Value Reference Range Interpretation Comments AST (test code = AST) 15 See_Comment [Auto mated message] The system which ge nerated this result transmit sivakumar reference range : <=37. The reference range was not used to interpr et this result as lida l/abnormal. [facility] [id number] 09:15:00 Test Item Value Reference Range Interpretation Comments Alk Phos (test code = Alk Phos) 112 39-136 [place] 326012-09-16 09:15:00 Test Item Value Reference Range Interpretation Comments Bili Total (test code = Bili Total) 1.4 0.2-1.3 [place] 326012-09-16 09:15:00 Test Item Value Reference Range Interpretation Comments eGFR (test code = eGFR) 80 [place] 326012-09-16 09:15:00 Test Item Value Reference Range Interpretation Comments Phosphorus (test code = Phosphorus) 2.8 2.5-4.5 [place] 326012-09-16 09:15:00 Test Item Value Reference Range Interpretation Comments Magnesium Lvl (test code = Magnesium 2.1 1.8-2.4 Lvl) [place] 765532-09-16 09:15:00 Test Item Value Reference Range Interpretation Comments WBC (test code = WBC) 17.1 3.7-10.4 [place] 765532-09-16 09:15:00 Test Item Value Reference Range Interpretation Comments RBC (test code = RBC) 2.20 4.70-6.10 [place] [address]-09-16 09:15:00 Test Item Value Reference Range Interpretation Comments Hgb (test code = Hgb) 8.2 14.0-18.0 [place] [address]-09-16 09:15:00 Test Item Value Reference Range Interpretation Comments Hct (test code = Hct) 23.6 42.0-54.0 [place] [address]-09-16 09:15:00 Test Item Value Reference Range Interpretation Comments MCV (test code = MCV) 107.3 80.0-94.0 [place] [address]-09-16 09:15:00 Test Item Value Reference Range Interpretation Comments MCH (test code = MCH) 37.3 pg 27.0-31.0 [place] [address]-09-16 09:15:00 Test Item Value Reference Range Interpretation Comments MCHC (test code = MCHC) 34.8 32.0-36.0 [place] [address]-09-16 09:15:00 Test Item Value Reference Range Interpretation Comments RDW (test code = RDW) 14.2 11.5-14.5 [place] 765532-09-16 09:15:00 Test Item Value Reference Range Interpretation Comments Platelet (test code = Platelet) 433 133-450 [place] 765532-09-16 09:15:00 Test Item Value Reference Range Interpretation Comments MPV (test code = MPV) 7.3 7.4-10.4 [place] 765532-09-16 09:15:00 Test Item Value Reference Range Interpretation Comments Segs (test code = Segs) 85.4 45.0-75.0 [place] 765532-09-16 09:15:00 Test Item Value Reference Range Interpretation Comments Lymphocytes (test code = Lymphocytes) 5.9 20.0-40.0 [place] [address]-09-16 09:15:00 Test Item Value Reference Range Interpretation Comments Monocytes (test code = Monocytes) 8.0 2.0-12.0 [place] 765532-09-16 09:15:00 Test Item Value Reference Range Interpretation Comments Eosinophils (test code = 0.5 See_Comment [A utomated message] The Eosinophils) system which ge nerated this result tra nsmitted reference range : <=4.0. The reference r mirela was not used to int erpret this result as normal/abnormal . [place] 765532-09-16 09:15:00 Test Item Value Reference Range Interpretation Comments Basophils (test code = 0.2 See_Comment [Aut omated message] The Basophils) system which ge nerated this result tra nsmitted reference range : <=1.0. The reference r mirela was not used to int erpret this result as normal/abnormal . [place] 765532-09-16 09:15:00 Test Item Value Reference Range Interpretation Comments Neutrophils # (test code = Neutrophils 14.6 1.5-8.1 #) [place] [address]-09-16 09:15:00 Test Item Value Reference Range Interpretation Comments Lymphocytes # (test code = Lymphocytes 1.0 1.0-5.5 #) [place]65532-09-16 09:15:00 Test Item Value Reference Range Interpretation Comments Monocytes # (test code 1.4 See_Comment [Aut omated message] The = Monocytes #) system which generated this result tra nsmitted reference range : <=0.8. The reference r mirela was not used to int erpret this result as normal/abnormal . [place] 765532-09-16 09:15:00 Test Item Value Reference Range Interpretation Comments Eosinophils # (test code 0.1 See_Comment [A utomated message] The = Eosinophils #) system whic h generated this result tra nsmitted reference range : <=0.5. The reference r mirela was not used to int erpret this result as normal/abnormal . [place] 765532-09-16 09:15:00 Test Item Value Reference Range Interpretation Comments Macrocyte (test code = 2+ *ABN*(07/01/22 Macrocyte) 4:15 AM) [place] [address]-09-16 09:15:00 Test Item Value Reference Range Interpretation Comments Glucose Lvl (test code = Glucose Lvl) 107 70-99 [place] 326012-09-16 09:15:00 Test Item Value Reference Range Interpretation Comments BUN (test code = BUN) 21 7-22 [place] 326012-09-16 09:15:00 Test Item Value Reference Range Interpretation Comments Creatinine Lvl (test code = Creatinine 0.91 0.50-1.40 Lvl) [place] [address]-09-16 09:15:00 Test Item Value Reference Range Interpretation Comments Sodium Lvl (test code = Sodium Lvl) 141 135-145 [place] 326012-09-16 09:15:00 Test Item Value Reference Range Interpretation Comments Potassium Lvl (test code = Potassium 3.3 3.5-5.1 Lvl) [place] 326012-09-16 09:15:00 Test Item Value Reference Range Interpretation Comments Chloride Lvl (test code = Chloride Lvl) 112 95-109 [place] 326012-09-16 09:15:00 Test Item Value Reference Range Interpretation Comments CO2 (test code = CO2) 24 24-32 [place] 326012-09-16 09:15:00 Test Item Value Reference Range Interpretation Comments AGAP (test code = AGAP) 8.3 10.0-20.0 [place] 326012-09-16 09:15:00 Test Item Value Reference Range Interpretation Comments Calcium Lvl (test code = Calcium Lvl) 8.4 8.5-10.5 [place] 326012-09-16 09:15:00 Test Item Value Reference Range Interpretation Comments B/C Ratio (test code = B/C Ratio) 23 1 6-25 [place] [address]-09-16 09:15:00 Test Item Value Reference Range Interpretation Comments Total Protein (test code = Total 5.4 6.4-8.4 Protein) [place] [address]-09-16 09:15:00 Test Item Value Reference Range Interpretation Comments Albumin Lvl (test code = Albumin Lvl) 2.4 3.5-5.0 [place] [address]-09-16 09:15:00 Test Item Value Reference Range Interpretation Comments Globulin (test code = Globulin) 3.0 2.7-4.2 [place] [address]-09-16 09:15:00 Test Item Value Reference Range Interpretation Comments A/G Ratio (test code = A/G Ratio) 0.8 1 0.7-1.6 [place] [address]-09-16 09:15:00 Test Item Value Reference Range Interpretation Comments ALT (test code = ALT) 15 See_Comment [Auto mated message] The system which ge nerated this result transmit sivakumar reference range : <=65. The reference range was not used to interpr et this result as lida l/abnormal. [place] [address]-09-16 09:15:00 Test Item Value Reference Range Interpretation Comments AST (test code = AST) 15 See_Comment [Auto mated message] The system which ge nerated this result transmit sivakumar reference range : <=37. The reference range was not used to interpr et this result as lida l/abnormal. [place] 326012-09-16 09:15:00 Test Item Value Reference Range Interpretation Comments Alk Phos (test code = Alk Phos) 112 39-136 [place] 326012-09-16 09:15:00 Test Item Value Reference Range Interpretation Comments Bili Total (test code = Bili Total) 1.4 0.2-1.3 [place] [address]-09-16 09:15:00 Test Item Value Reference Range Interpretation Comments eGFR (test code = eGFR) 80 [facility]2022-09-16 09:15:00 Test Item Value Reference Range Interpretation Comments Phosphorus (test code = Phosphorus) 2.8 2.5-4.5 [facility]2022-09-16 09:15:00 Test Item Value Reference Range Interpretation Comments Magnesium Lvl (test code = Magnesium 2.1 1.8-2.4 Lvl) [place] 765532-09-16 09:15:00 Test Item Value Reference Range Interpretation Comments WBC (test code = WBC) 17.1 3.7-10.4 [place] [address]-09-16 09:15:00 Test Item Value Reference Range Interpretation Comments RBC (test code = RBC) 2.20 4.70-6.10 [place] [address]-09-16 09:15:00 Test Item Value Reference Range Interpretation Comments Hgb (test code = Hgb) 8.2 14.0-18.0 [place] [address]-09-16 09:15:00 Test Item Value Reference Range Interpretation Comments Hct (test code = Hct) 23.6 42.0-54.0 [place] [address]-09-16 09:15:00 Test Item Value Reference Range Interpretation Comments MCV (test code = MCV) 107.3 80.0-94.0 [place] [address]-09-16 09:15:00 Test Item Value Reference Range Interpretation Comments MCH (test code = MCH) 37.3 pg 27.0-31.0 [place] [address]-09-16 09:15:00 Test Item Value Reference Range Interpretation Comments MCHC (test code = MCHC) 34.8 32.0-36.0 [place] 765532-09-16 09:15:00 Test Item Value Reference Range Interpretation Comments RDW (test code = RDW) 14.2 11.5-14.5 [place] [address]-09-16 09:15:00 Test Item Value Reference Range Interpretation Comments Platelet (test code = Platelet) 433 133-450 [place] 765532-09-16 09:15:00 Test Item Value Reference Range Interpretation Comments MPV (test code = MPV) 7.3 7.4-10.4 [place] 765532-09-16 09:15:00 Test Item Value Reference Range Interpretation Comments Segs (test code = Segs) 85.4 45.0-75.0 [place] 765532-09-16 09:15:00 Test Item Value Reference Range Interpretation Comments Lymphocytes (test code = Lymphocytes) 5.9 20.0-40.0 [place] 765532-09-16 09:15:00 Test Item Value Reference Range Interpretation Comments Monocytes (test code = Monocytes) 8.0 2.0-12.0 [place] 765532-09-16 09:15:00 Test Item Value Reference Range Interpretation Comments Eosinophils (test code = 0.5 See_Comment [A utomated message] The Eosinophils) system which ge nerated this result tra nsmitted reference range : <=4.0. The reference r mirela was not used to int erpret this result as normal/abnormal . [place] 765532-09-16 09:15:00 Test Item Value Reference Range Interpretation Comments Basophils (test code = 0.2 See_Comment [Aut omated message] The Basophils) system which ge nerated this result tra nsmitted reference range : <=1.0. The reference r mirela was not used to int erpret this result as normal/abnormal . [place] 765532-09-16 09:15:00 Test Item Value Reference Range Interpretation Comments Neutrophils # (test code = Neutrophils 14.6 1.5-8.1 #) [place] 765532-09-16 09:15:00 Test Item Value Reference Range Interpretation Comments Lymphocytes # (test code = Lymphocytes 1.0 1.0-5.5 #) [place]65532-09-16 09:15:00 Test Item Value Reference Range Interpretation Comments Monocytes # (test code 1.4 See_Comment [Aut omated message] The = Monocytes #) system which generated this result tra nsmitted reference range : <=0.8. The reference r mirela was not used to int erpret this result as normal/abnormal . [place] 765532-09-16 09:15:00 Test Item Value Reference Range Interpretation Comments Eosinophils # (test code 0.1 See_Comment [A utomated message] The = Eosinophils #) system whic h generated this result tra nsmitted reference range : <=0.5. The reference r mirela was not used to int erpret this result as normal/abnormal . [place] 765532-09-16 09:15:00 Test Item Value Reference Range Interpretation Comments Macrocyte (test code = 2+ *ABN*(07/01/22 Macrocyte) 4:15 AM) [place] 326012-09-16 09:15:00 Test Item Value Reference Range Interpretation Comments Glucose Lvl (test code = Glucose Lvl) 107 70-99 [place] 326012-09-16 09:15:00 Test Item Value Reference Range Interpretation Comments BUN (test code = BUN) 21 7-22 [place] 326012-09-16 09:15:00 Test Item Value Reference Range Interpretation Comments Creatinine Lvl (test code = Creatinine 0.91 0.50-1.40 Lvl) [place] [address]-09-16 09:15:00 Test Item Value Reference Range Interpretation Comments Sodium Lvl (test code = Sodium Lvl) 141 135-145 [place] 326012-09-16 09:15:00 Test Item Value Reference Range Interpretation Comments Potassium Lvl (test code = Potassium 3.3 3.5-5.1 Lvl) [place] 326012-09-16 09:15:00 Test Item Value Reference Range Interpretation Comments Chloride Lvl (test code = Chloride Lvl) 112 95-109 [place] [address]-09-16 09:15:00 Test Item Value Reference Range Interpretation Comments CO2 (test code = CO2) 24 24-32 [place] 326012-09-16 09:15:00 Test Item Value Reference Range Interpretation Comments AGAP (test code = AGAP) 8.3 10.0-20.0 [place] 326012-09-16 09:15:00 Test Item Value Reference Range Interpretation Comments Calcium Lvl (test code = Calcium Lvl) 8.4 8.5-10.5 [place] 326012-09-16 09:15:00 Test Item Value Reference Range Interpretation Comments B/C Ratio (test code = B/C Ratio) 23 1 6-25 [place] [address]-09-16 09:15:00 Test Item Value Reference Range Interpretation Comments Total Protein (test code = Total 5.4 6.4-8.4 Protein) [place] 326012-09-16 09:15:00 Test Item Value Reference Range Interpretation Comments Albumin Lvl (test code = Albumin Lvl) 2.4 3.5-5.0 [place] 326012-09-16 09:15:00 Test Item Value Reference Range Interpretation Comments Globulin (test code = Globulin) 3.0 2.7-4.2 [place] 326012-09-16 09:15:00 Test Item Value Reference Range Interpretation Comments A/G Ratio (test code = A/G Ratio) 0.8 1 0.7-1.6 [place] [address]-09-16 09:15:00 Test Item Value Reference Range Interpretation Comments ALT (test code = ALT) 15 See_Comment [Auto mated message] The system which ge nerated this result transmit sivakumar reference range : <=65. The reference range was not used to interpr et this result as lida l/abnormal. [place] [address]-09-16 09:15:00 Test Item Value Reference Range Interpretation Comments AST (test code = AST) 15 See_Comment [Auto mated message] The system which ge nerated this result transmit sivakumar reference range : <=37. The reference range was not used to interpr et this result as lida l/abnormal. [place] 326012-09-16 09:15:00 Test Item Value Reference Range Interpretation Comments Alk Phos (test code = Alk Phos) 112 39-136 [place] 326012-09-16 09:15:00 Test Item Value Reference Range Interpretation Comments Bili Total (test code = Bili Total) 1.4 0.2-1.3 [place] [address]-09-16 09:15:00 Test Item Value Reference Range Interpretation Comments eGFR (test code = eGFR) 80 [place] 326012-09-16 09:15:00 Test Item Value Reference Range Interpretation Comments Phosphorus (test code = Phosphorus) 2.8 2.5-4.5 [place] [address]-09-16 09:15:00 Test Item Value Reference Range Interpretation Comments Magnesium Lvl (test code = Magnesium 2.1 1.8-2.4 Lvl) [place] 765532-09-16 09:15:00 Test Item Value Reference Range Interpretation Comments WBC (test code = WBC) 17.1 3.7-10.4 [facility]pwfjmmOQZLAJCVWQ7370-69-25 09:15:00 Test Item Value Reference Range Interpretation Comments RBC (test code = RBC) 2.20 4.70-6.10 [facility] HospitalWyhwrupMONLOPPVDC8176-63-22 09:15:00 Test Item Value Reference Range Interpretation Comments Hgb (test code = Hgb) 8.2 14.0-18.0 [facility] HospitalKerkeboOZGSXLBBMV2653-00-55 09:15:00 Test Item Value Reference Range Interpretation Comments Hct (test code = Hct) 23.6 42.0-54.0 [facility] HospitalYffznsjCMGUAASRXK7662-35-83 09:15:00 Test Item Value Reference Range Interpretation Comments MCV (test code = MCV) 107.3 80.0-94.0 [facility] HospitalDwvdfweZDRGEGFMSB6693-40-62 09:15:00 Test Item Value Reference Range Interpretation Comments MCH (test code = MCH) 37.3 pg 27.0-31.0 [facility] HospitalGsonemkTQSRRGBGSY3045-66-02 09:15:00 Test Item Value Reference Range Interpretation Comments MCHC (test code = MCHC) 34.8 32.0-36.0 [facility] HospitalYdjvnjtFYTFOTWNLR1785-88-81 09:15:00 Test Item Value Reference Range Interpretation Comments RDW (test code = RDW) 14.2 11.5-14.5 [facility] HospitalHimglwvSISSMAUFBL8929-55-39 09:15:00 Test Item Value Reference Range Interpretation Comments Platelet (test code = Platelet) 433 133-450 [facility] HospitalGbofnrhKRYNHGQSJW6388-25-15 09:15:00 Test Item Value Reference Range Interpretation Comments MPV (test code = MPV) 7.3 7.4-10.4 [place] 765532-09-16 09:15:00 Test Item Value Reference Range Interpretation Comments Segs (test code = Segs) 85.4 45.0-75.0 [facility] HospitalPxtcwqxYEJXHNROJI1987-66-48 09:15:00 Test Item Value Reference Range Interpretation Comments Lymphocytes (test code = Lymphocytes) 5.9 20.0-40.0 [place] 765532-09-16 09:15:00 Test Item Value Reference Range Interpretation Comments Monocytes (test code = Monocytes) 8.0 2.0-12.0 [facility] HospitalLshilcqMMENHTVBJV3744-69-31 09:15:00 Test Item Value Reference Range Interpretation Comments Eosinophils (test code = 0.5 See_Comment [A utomated message] The Eosinophils) system which ge nerated this result tra nsmitted reference range : <=4.0. The reference r mirela was not used to int erpret this result as normal/abnormal . [place]65532-09-16 09:15:00 Test Item Value Reference Range Interpretation Comments Basophils (test code = 0.2 See_Comment [Aut omated message] The Basophils) system which ge nerated this result tra nsmitted reference range : <=1.0. The reference r mirela was not used to int erpret this result as normal/abnormal . [facility]qjxyzzUSSKVZCFSK6815-45-47 09:15:00 Test Item Value Reference Range Interpretation Comments Neutrophils # (test code = Neutrophils 14.6 1.5-8.1 #) [place] 765532-09-16 09:15:00 Test Item Value Reference Range Interpretation Comments Lymphocytes # (test code = Lymphocytes 1.0 1.0-5.5 #) [facility] HospitalHaetnxlZWXFTCQQJH3530-55-15 09:15:00 Test Item Value Reference Range Interpretation Comments Monocytes # (test code 1.4 See_Comment [Aut omated message] The = Monocytes #) system which generated this result tra nsmitted reference range : <=0.8. The reference r mirela was not used to int erpret this result as normal/abnormal . [facility] HospitalIuthraxPNUCMHLLIJ3723-60-01 09:15:00 Test Item Value Reference Range Interpretation Comments Eosinophils # (test code 0.1 See_Comment [A utomated message] The = Eosinophils #) system whic h generated this result tra nsmitted reference range : <=0.5. The reference r mirela was not used to int erpret this result as normal/abnormal . [place] 765532-09-16 09:15:00 Test Item Value Reference Range Interpretation Comments Macrocyte (test code = 2+ *ABN*(07/01/22 Macrocyte) 4:15 AM) [facility]2022-09-16 09:15:00 Test Item Value Reference Range Interpretation Comments Glucose Lvl (test code = Glucose Lvl) 107 70-99 [place] 326012-09-16 09:15:00 Test Item Value Reference Range Interpretation Comments BUN (test code = BUN) 21 7-22 [place] 326012-09-16 09:15:00 Test Item Value Reference Range Interpretation Comments Creatinine Lvl (test code = Creatinine 0.91 0.50-1.40 Lvl) [place] 326012-09-16 09:15:00 Test Item Value Reference Range Interpretation Comments Sodium Lvl (test code = Sodium Lvl) 141 135-145 [place] 326012-09-16 09:15:00 Test Item Value Reference Range Interpretation Comments Potassium Lvl (test code = Potassium 3.3 3.5-5.1 Lvl) [place] 326012-09-16 09:15:00 Test Item Value Reference Range Interpretation Comments Chloride Lvl (test code = Chloride Lvl) 112 95-109 [place] 326012-09-16 09:15:00 Test Item Value Reference Range Interpretation Comments CO2 (test code = CO2) 24 24-32 [place] 326012-09-16 09:15:00 Test Item Value Reference Range Interpretation Comments AGAP (test code = AGAP) 8.3 10.0-20.0 [place] 326012-09-16 09:15:00 Test Item Value Reference Range Interpretation Comments Calcium Lvl (test code = Calcium Lvl) 8.4 8.5-10.5 [place] 326012-09-16 09:15:00 Test Item Value Reference Range Interpretation Comments B/C Ratio (test code = B/C Ratio) 23 1 6-25 [place] 326012-09-16 09:15:00 Test Item Value Reference Range Interpretation Comments Total Protein (test code = Total 5.4 6.4-8.4 Protein) [place] 326012-09-16 09:15:00 Test Item Value Reference Range Interpretation Comments Albumin Lvl (test code = Albumin Lvl) 2.4 3.5-5.0 [place] 326012-09-16 09:15:00 Test Item Value Reference Range Interpretation Comments Globulin (test code = Globulin) 3.0 2.7-4.2 [place] [address]-09-16 09:15:00 Test Item Value Reference Range Interpretation Comments A/G Ratio (test code = A/G Ratio) 0.8 1 0.7-1.[address]09-16 09:15:00 Test Item Value Reference Range Interpretation Comments ALT (test code = ALT) 15 See_Comment [Auto mated message] The system which ge nerated this result transmit sivakumar reference range : <=65. The reference range was not used to interpr et this result as lida l/abnormal. [address]09-16 09:15:00 Test Item Value Reference Range Interpretation Comments AST (test code = AST) 15 See_Comment [Auto mated message] The system which ge nerated this result transmit sivakumar reference range : <=37. The reference range was not used to interpr et this result as lida l/abnormal. [address]09-16 09:15:00 Test Item Value Reference Range Interpretation Comments Alk Phos (test code = Alk Phos) 112 39-136 [place] [address]-09-16 09:15:00 Test Item Value Reference Range Interpretation Comments Bili Total (test code = Bili Total) 1.4 0.2-1.[address]09-16 09:15:00 Test Item Value Reference Range Interpretation Comments eGFR (test code = eGFR) [address]09-16 09:15:00 Test Item Value Reference Range Interpretation Comments Phosphorus (test code = Phosphorus) 2.8 2.5-4.5 [place] [address]-09-16 09:15:00 Test Item Value Reference Range Interpretation Comments Magnesium Lvl (test code = Magnesium 2.1 1.8-2.4 Lvl) [address]09-16 09:15:00 Test Item Value Reference Range Interpretation Comments WBC (test code = WBC) 17.1 3.7-10.4 [place] [address]-09-16 09:15:00 Test Item Value Reference Range Interpretation Comments RBC (test code = RBC) 2.20 4.70-6.10 [place] [address]-09-16 09:15:00 Test Item Value Reference Range Interpretation Comments Hgb (test code = Hgb) 8.2 14.0-18.0 [facility] HospitalLamkxahSGBRCSPSLC9501-24-43 09:15:00 Test Item Value Reference Range Interpretation Comments Hct (test code = Hct) 23.6 42.0-54.0 [facility] HospitalMukozghITGMDWBOFZ4453-30-98 09:15:00 Test Item Value Reference Range Interpretation Comments MCV (test code = MCV) 107.3 80.0-94.0 [facility] HospitalNoxlyyoFCCRLPQORP4424-05-24 09:15:00 Test Item Value Reference Range Interpretation Comments MCH (test code = MCH) 37.3 pg 27.0-31.0 [facility] HospitalObgbvqmRLKLIFITSK7122-03-11 09:15:00 Test Item Value Reference Range Interpretation Comments MCHC (test code = MCHC) 34.8 32.0-36.0 [facility] HospitalDrkyzrzOSLATYPFCH8352-20-29 09:15:00 Test Item Value Reference Range Interpretation Comments RDW (test code = RDW) 14.2 11.5-14.5 [facility] HospitalDoytjfbIAXVFKSMUO9268-57-27 09:15:00 Test Item Value Reference Range Interpretation Comments Platelet (test code = Platelet) 433 133-450 [facility] HospitalSrbmldpFQZGHCTBAC0296-41-17 09:15:00 Test Item Value Reference Range Interpretation Comments MPV (test code = MPV) 7.3 7.4-10.4 [facility] HospitalNucjbxtXJHVXJPFED3902-19-40 09:15:00 Test Item Value Reference Range Interpretation Comments Segs (test code = Segs) 85.4 45.0-75.0 [facility] HospitalCjmqilfELFKKZDIGY2224-17-18 09:15:00 Test Item Value Reference Range Interpretation Comments Lymphocytes (test code = Lymphocytes) 5.9 20.0-40.0 [place] 765532-09-16 09:15:00 Test Item Value Reference Range Interpretation Comments Monocytes (test code = Monocytes) 8.0 2.0-12.0 [facility] HospitalLpmfimjSGVXEYBOFU6913-55-98 09:15:00 Test Item Value Reference Range Interpretation Comments Eosinophils (test code = 0.5 See_Comment [A utomated message] The Eosinophils) system which ge nerated this result tra nsmitted reference range : <=4.0. The reference r mirela was not used to int erpret this result as normal/abnormal . [place] 765532-09-16 09:15:00 Test Item Value Reference Range Interpretation Comments Basophils (test code = 0.2 See_Comment [Aut omated message] The Basophils) system which ge nerated this result tra nsmitted reference range : <=1.0. The reference r mirela was not used to int erpret this result as normal/abnormal . [facility] HospitalEiiuwonDZDQEHZPCR1457-71-74 09:15:00 Test Item Value Reference Range Interpretation Comments Neutrophils # (test code = Neutrophils 14.6 1.5-8.1 #) [place] 765532-09-16 09:15:00 Test Item Value Reference Range Interpretation Comments Lymphocytes # (test code = Lymphocytes 1.0 1.0-5.5 #) [place] 765532-09-16 09:15:00 Test Item Value Reference Range Interpretation Comments Monocytes # (test code 1.4 See_Comment [Aut omated message] The = Monocytes #) system which generated this result tra nsmitted reference range : <=0.8. The reference r mirela was not used to int erpret this result as normal/abnormal . [facility] HospitalTtpxaeoTZCMSOVCOK6250-72-61 09:15:00 Test Item Value Reference Range Interpretation Comments Eosinophils # (test code 0.1 See_Comment [A utomated message] The = Eosinophils #) system whic h generated this result tra nsmitted reference range : <=0.5. The reference r mirela was not used to int erpret this result as normal/abnormal . [place] 765532-09-16 09:15:00 Test Item Value Reference Range Interpretation Comments Macrocyte (test code = 2+ *ABN*(07/01/22 Macrocyte) 4:15 AM) [place] 326012-09-16 09:15:00 Test Item Value Reference Range Interpretation Comments Glucose Lvl (test code = Glucose Lvl) 107 70-99 [place] 326012-09-16 09:15:00 Test Item Value Reference Range Interpretation Comments BUN (test code = BUN) 21 7- [place] 326012-09-16 09:15:00 Test Item Value Reference Range Interpretation Comments Creatinine Lvl (test code = Creatinine 0.91 0.50-1.40 Lvl) [place] 326012-09-16 09:15:00 Test Item Value Reference Range Interpretation Comments Sodium Lvl (test code = Sodium Lvl) 141 135-145 [place] 326012-09-16 09:15:00 Test Item Value Reference Range Interpretation Comments Potassium Lvl (test code = Potassium 3.3 3.5-5.1 Lvl) [place] 326012-09-16 09:15:00 Test Item Value Reference Range Interpretation Comments Chloride Lvl (test code = Chloride Lvl) 112 95-109 [place] 326012-09-16 09:15:00 Test Item Value Reference Range Interpretation Comments CO2 (test code = CO2) 24 24-32 [place] 326012-09-16 09:15:00 Test Item Value Reference Range Interpretation Comments AGAP (test code = AGAP) 8.3 10.0-20.0 [place] 326012-09-16 09:15:00 Test Item Value Reference Range Interpretation Comments Calcium Lvl (test code = Calcium Lvl) 8.4 8.5-10.5 [place] 326012-09-16 09:15:00 Test Item Value Reference Range Interpretation Comments B/C Ratio (test code = B/C Ratio) 23 1 6-25 [place] 326012-09-16 09:15:00 Test Item Value Reference Range Interpretation Comments Total Protein (test code = Total 5.4 6.4-8.4 Protein) [place] 326012-09-16 09:15:00 Test Item Value Reference Range Interpretation Comments Albumin Lvl (test code = Albumin Lvl) 2.4 3.5-5.0 [place] 326012-09-16 09:15:00 Test Item Value Reference Range Interpretation Comments Globulin (test code = Globulin) 3.0 2.7-4.2 [place] 326012-09-16 09:15:00 Test Item Value Reference Range Interpretation Comments A/G Ratio (test code = A/G Ratio) 0.8 1 0.7-1.6 [place] 326012-09-16 09:15:00 Test Item Value Reference Range Interpretation Comments ALT (test code = ALT) 15 See_Comment [Auto mated message] The system which ge nerated this result transmit sivakumar reference range : <=65. The reference range was not used to interpr et this result as lida l/abnormal. [place] 326012-09-16 09:15:00 Test Item Value Reference Range Interpretation Comments AST (test code = AST) 15 See_Comment [Auto mated message] The system which ge nerated this result transmit sivakumar reference range : <=37. The reference range was not used to interpr et this result as lida l/abnormal. [place] 326012-09-16 09:15:00 Test Item Value Reference Range Interpretation Comments Alk Phos (test code = Alk Phos) 112 39-136 [place] 326012-09-16 09:15:00 Test Item Value Reference Range Interpretation Comments Bili Total (test code = Bili Total) 1.4 0.2-1.3 [place] [address]-09-16 09:15:00 Test Item Value Reference Range Interpretation Comments eGFR (test code = eGFR) 80 [place] 326012-09-16 09:15:00 Test Item Value Reference Range Interpretation Comments Phosphorus (test code = Phosphorus) 2.8 2.5-4.5 [place] [address]-09-16 09:15:00 Test Item Value Reference Range Interpretation Comments Magnesium Lvl (test code = Magnesium 2.1 1.8-2.4 Lvl) [place] [address]-09-16 09:15:00 Test Item Value Reference Range Interpretation Comments WBC (test code = WBC) 17.1 3.7-10.4 [place] [address]-09-16 09:15:00 Test Item Value Reference Range Interpretation Comments RBC (test code = RBC) 2.20 4.70-6.10 [place] [address]-09-16 09:15:00 Test Item Value Reference Range Interpretation Comments Hgb (test code = Hgb) 8.2 14.0-18.0 [place] [address]-09-16 09:15:00 Test Item Value Reference Range Interpretation Comments Hct (test code = Hct) 23.6 42.0-54.0 [place] [address]-09-16 09:15:00 Test Item Value Reference Range Interpretation Comments MCV (test code = MCV) 107.3 80.0-94.0 [place] [address]-09-16 09:15:00 Test Item Value Reference Range Interpretation Comments MCH (test code = MCH) 37.3 pg 27.0-31.0 [facility] HospitalHnztvyjQNUISPTHPL2570-96-05 09:15:00 Test Item Value Reference Range Interpretation Comments MCHC (test code = MCHC) 34.8 32.0-36.0 [facility] HospitalPokbhsxZQUQELEGLU5206-86-80 09:15:00 Test Item Value Reference Range Interpretation Comments RDW (test code = RDW) 14.2 11.5-14.5 [facility] HospitalZrcgmzgOJABIKKFIR6605-71-63 09:15:00 Test Item Value Reference Range Interpretation Comments Platelet (test code = Platelet) 433 133-450 [facility] HospitalKeawxndTMCCLFMKWI4641-98-61 09:15:00 Test Item Value Reference Range Interpretation Comments MPV (test code = MPV) 7.3 7.4-10.4 [place] 765532-09-16 09:15:00 Test Item Value Reference Range Interpretation Comments Segs (test code = Segs) 85.4 45.0-75.0 [facility] HospitalCbgaewoRQNEOJAJGK1328-32-61 09:15:00 Test Item Value Reference Range Interpretation Comments Lymphocytes (test code = Lymphocytes) 5.9 20.0-40.0 [facility] HospitalTblzctmHAQPTBVIWK2616-58-43 09:15:00 Test Item Value Reference Range Interpretation Comments Monocytes (test code = Monocytes) 8.0 2.0-12.0 [place] 765532-09-16 09:15:00 Test Item Value Reference Range Interpretation Comments Eosinophils (test code = 0.5 See_Comment [A utomated message] The Eosinophils) system which ge nerated this result tra nsmitted reference range : <=4.0. The reference r mirela was not used to int erpret this result as normal/abnormal . [place] 765532-09-16 09:15:00 Test Item Value Reference Range Interpretation Comments Basophils (test code = 0.2 See_Comment [Aut omated message] The Basophils) system which ge nerated this result tra nsmitted reference range : <=1.0. The reference r mirela was not used to int erpret this result as normal/abnormal . [place] 765532-09-16 09:15:00 Test Item Value Reference Range Interpretation Comments Neutrophils # (test code = Neutrophils 14.6 1.5-8.1 #) [facility] HospitalKfyyzcsVAPBLHIPTI7894-65-47 09:15:00 Test Item Value Reference Range Interpretation Comments Lymphocytes # (test code = Lymphocytes 1.0 1.0-5.5 #) [facility] HospitalVkoamcdMMNHOGLQTM2355-49-13 09:15:00 Test Item Value Reference Range Interpretation Comments Monocytes # (test code 1.4 See_Comment [Aut omated message] The = Monocytes #) system which generated this result tra nsmitted reference range : <=0.8. The reference r mirela was not used to int erpret this result as normal/abnormal . [facility] HospitalCrssdobWWVLETCKSO8024-96-60 09:15:00 Test Item Value Reference Range Interpretation Comments Eosinophils # (test code 0.1 See_Comment [A utomated message] The = Eosinophils #) system whic h generated this result tra nsmitted reference range : <=0.5. The reference r mirela was not used to int erpret this result as normal/abnormal . [facility] HospitalObirshsLMGUDFYFSV2089-60-49 09:15:00 Test Item Value Reference Range Interpretation Comments Macrocyte (test code = 2+ *ABN*(07/01/22 Macrocyte) 4:15 AM) [facility] AND [id number] 11:13:00 Test Item Value Reference Range Interpretation Comments UA Color (test code = Yellow *NA*(06/30/22 UA Color) 6:13 AM) [facility] AND [id number] 11:13:00 Test Item Value Reference Range Interpretation Comments UA Turbidity (test code = Clear (06/30/22 6:13 UA Turbidity) AM) [facility] AND [id number] 11:13:00 Test Item Value Reference Range Interpretation Comments UA Spec Grav (test code = UA Spec 1.025 1 Grav) [facility] AND [id number] 11:13:00 Test Item Value Reference Range Interpretation Comments UA pH (test code = UA pH) 5.5 1 5.0-8.0 [facility] AND [id number] 11:13:00 Test Item Value Reference Range Interpretation Comments UA Protein (test code Negative (06/30/22 6:13 = UA Protein) AM) [facility] AND [id number] 11:13:00 Test Item Value Reference Range Interpretation Comments UA Glucose (test code Negative (06/30/22 6:13 = UA Glucose) AM) [facility] AND [id number] 11:13:00 Test Item Value Reference Range Interpretation Comments UA Ketones (test code = UA Ketones) 40 mg/dL [facility] AND [id number] 11:13:00 Test Item Value Reference Range Interpretation Comments UA Bili (test code = Small *ABN*(06/30/22 UA Bili) 6:13 AM) [facility] AND [id number] 11:13:00 Test Item Value Reference Range Interpretation Comments UA Blood (test code = Negative (06/30/22 6:13 UA Blood) AM) [facility] AND [id number] 11:13:00 Test Item Value Reference Range Interpretation Comments UA Urobilinogen (test code = UA 1.0 0.1-1.0 Urobilinogen) [facility] AND [id number] 11:13:00 Test Item Value Reference Range Interpretation Comments UA Nitrite (test code Negative (06/30/22 6:13 = UA Nitrite) AM) [facility] AND [id number] 11:13:00 Test Item Value Reference Range Interpretation Comments UA Leuk Est (test Negative (06/30/22 6:13 code = UA Leuk Est) AM) [facility] AND [id number] 11:13:00 Test Item Value Reference Range Interpretation Comments UA Sq Epi (test code = UA Sq Occasional /LPF Epi) [facility] AND [id number] 11:13:00 Test Item Value Reference Range Interpretation Comments UA WBC (test code = 1 See_Comment [Automa sivakumar message] The UA WBC) system which ge nerated this result transmit sivakumar reference range : <=5. The reference range was not used to interpr et this result as lida l/abnormal. [facility] AND [id number] 11:13:00 Test Item Value Reference Range Interpretation Comments UA RBC (test code = no gt See_Comment [Automa sivakumar message] The UA RBC) system which ge nerated this result transmit sivakumar reference range : <=2. The reference range was not used to interpr et this result as lida l/abnormal. [facility] [id number] 11:13:00 Test Item Value Reference Range Interpretation Comments UA Mucus (test code = UA Mucus) Few /LPF [facility] AND [id number] 11:13:00 Test Item Value Reference Range Interpretation Comments UA Hyal Cast (test 4 See_Comment [Automat ed message] The code = UA Hyal Cast) system which generated this result transmit sivakumar reference range : <=2. The reference range was not used to interpr et this result as lida l/abnormal. [facility] AND [id number] 11:13:00 Test Item Value Reference Range Interpretation Comments UA Trans Epi (test code = UA Trans Epi) 2 [facility] AND [id number] 11:13:00 Test Item Value Reference Range Interpretation Comments UA Color (test code = Yellow *NA*(06/30/22 UA Color) 6:13 AM) [facility] AND [id number] 11:13:00 Test Item Value Reference Range Interpretation Comments UA Turbidity (test code = Clear (06/30/22 6:13 UA Turbidity) AM) [facility] AND [id number] 11:13:00 Test Item Value Reference Range Interpretation Comments UA Spec Grav (test code = UA Spec 1.025 1 Grav) [facility] AND [id number] 11:13:00 Test Item Value Reference Range Interpretation Comments UA pH (test code = UA pH) 5.5 1 5.0-8.0 [facility] AND [id number] 11:13:00 Test Item Value Reference Range Interpretation Comments UA Protein (test code Negative (06/30/22 6:13 = UA Protein) AM) [facility] AND [id number] 11:13:00 Test Item Value Reference Range Interpretation Comments UA Glucose (test code Negative (06/30/22 6:13 = UA Glucose) AM) [facility] AND [id number] 11:13:00 Test Item Value Reference Range Interpretation Comments UA Ketones (test code = UA Ketones) 40 mg/dL [facility] AND [id number] 11:13:00 Test Item Value Reference Range Interpretation Comments UA Bili (test code = Small *ABN*(06/30/22 UA Bili) 6:13 AM) [facility] [id number] 11:13:00 Test Item Value Reference Range Interpretation Comments UA Blood (test code = Negative (06/30/22 6:13 UA Blood) AM) [facility] [id number] 11:13:00 Test Item Value Reference Range Interpretation Comments UA Urobilinogen (test code = UA 1.0 0.1-1.0 Urobilinogen) [facility] [id number] 11:13:00 Test Item Value Reference Range Interpretation Comments UA Nitrite (test code Negative (06/30/22 6:13 = UA Nitrite) AM) [facility] [id number] 11:13:00 Test Item Value Reference Range Interpretation Comments UA Leuk Est (test Negative (06/30/22 6:13 code = UA Leuk Est) AM) [facility] [id number] 11:13:00 Test Item Value Reference Range Interpretation Comments UA Sq Epi (test code = UA Sq Occasional /LPF Epi) [facility] AND [id number] 11:13:00 Test Item Value Reference Range Interpretation Comments UA WBC (test code = 1 See_Comment [Automa sivakumar message] The UA WBC) system which ge nerated this result transmit sivakumar reference range : <=5. The reference range was not used to interpr et this result as lida l/abnormal. [facility] [id number] 11:13:00 Test Item Value Reference Range Interpretation Comments UA RBC (test code = no gt See_Comment [Automa sivakumar message] The UA RBC) system which ge nerated this result transmit sivakumar reference range : <=2. The reference range was not used to interpr et this result as lida l/abnormal. [facility] [id number] 11:13:00 Test Item Value Reference Range Interpretation Comments UA Mucus (test code = UA Mucus) Few /LPF [facility] [id number] 11:13:00 Test Item Value Reference Range Interpretation Comments UA Hyal Cast (test 4 See_Comment [Automat ed message] The code = UA Hyal Cast) system which generated this result transmit sivakumar reference range : <=2. The reference range was not used to interpr et this result as lida l/abnormal. [facility] AND [id number] 11:13:00 Test Item Value Reference Range Interpretation Comments UA Trans Epi (test code = UA Trans Epi) 2 [facility] AND [id number] 11:13:00 Test Item Value Reference Range Interpretation Comments UA Color (test code = Yellow *NA*(06/30/22 UA Color) 6:13 AM) [facility] AND [id number] 11:13:00 Test Item Value Reference Range Interpretation Comments UA Turbidity (test code = Clear (06/30/22 6:13 UA Turbidity) AM) [facility] AND [id number] 11:13:00 Test Item Value Reference Range Interpretation Comments UA Spec Grav (test code = UA Spec 1.025 1 Grav) [facility] AND [id number] 11:13:00 Test Item Value Reference Range Interpretation Comments UA pH (test code = UA pH) 5.5 1 5.0-8.0 [facility] AND [id number] 11:13:00 Test Item Value Reference Range Interpretation Comments UA Protein (test code Negative (06/30/22 6:13 = UA Protein) AM) [facility] AND [id number] 11:13:00 Test Item Value Reference Range Interpretation Comments UA Glucose (test code Negative (06/30/22 6:13 = UA Glucose) AM) [facility] AND [id number] 11:13:00 Test Item Value Reference Range Interpretation Comments UA Ketones (test code = UA Ketones) 40 mg/dL [facility] AND [id number] 11:13:00 Test Item Value Reference Range Interpretation Comments UA Bili (test code = Small *ABN*(06/30/22 UA Bili) 6:13 AM) [facility] AND [id number] 11:13:00 Test Item Value Reference Range Interpretation Comments UA Blood (test code = Negative (06/30/22 6:13 UA Blood) AM) [facility] AND [id number] 11:13:00 Test Item Value Reference Range Interpretation Comments UA Urobilinogen (test code = UA 1.0 0.1-1.0 Urobilinogen) [facility] [id number] 11:13:00 Test Item Value Reference Range Interpretation Comments UA Nitrite (test code Negative (06/30/22 6:13 = UA Nitrite) AM) [facility] [id number] 11:13:00 Test Item Value Reference Range Interpretation Comments UA Leuk Est (test Negative (06/30/22 6:13 code = UA Leuk Est) AM) [facility] [id number] 11:13:00 Test Item Value Reference Range Interpretation Comments UA Sq Epi (test code = UA Sq Occasional /LPF Epi) [facility] [id number] 11:13:00 Test Item Value Reference Range Interpretation Comments UA WBC (test code = 1 See_Comment [Automa sivakumar message] The UA WBC) system which ge nerated this result transmit sivakumar reference range : <=5. The reference range was not used to interpr et this result as lida l/abnormal. [facility] [id number] 11:13:00 Test Item Value Reference Range Interpretation Comments UA RBC (test code = no gt See_Comment [Automa sivakumar message] The UA RBC) system which ge nerated this result transmit sivakumar reference range : <=2. The reference range was not used to interpr et this result as lida l/abnormal. [facility] AND [id number] 11:13:00 Test Item Value Reference Range Interpretation Comments UA Mucus (test code = UA Mucus) Few /LPF [facility] [id number] 11:13:00 Test Item Value Reference Range Interpretation Comments UA Hyal Cast (test 4 See_Comment [Automat ed message] The code = UA Hyal Cast) system which generated this result transmit sivakumar reference range : <=2. The reference range was not used to interpr et this result as lida l/abnormal. [facility] [id number] 11:13:00 Test Item Value Reference Range Interpretation Comments UA Trans Epi (test code = UA Trans Epi) 2 [facility] [id number] 11:13:00 Test Item Value Reference Range Interpretation Comments UA Color (test code = Yellow *NA*(06/30/22 UA Color) 6:13 AM) [facility] [id number] 11:13:00 Test Item Value Reference Range Interpretation Comments UA Turbidity (test code = Clear (06/30/22 6:13 UA Turbidity) AM) [facility] [id number] 11:13:00 Test Item Value Reference Range Interpretation Comments UA Spec Grav (test code = UA Spec 1.025 1 Grav) [facility] AND [id number] 11:13:00 Test Item Value Reference Range Interpretation Comments UA pH (test code = UA pH) 5.5 1 5.0-8.0 [facility] AND [id number] 11:13:00 Test Item Value Reference Range Interpretation Comments UA Protein (test code Negative (06/30/22 6:13 = UA Protein) AM) [facility] AND [id number] 11:13:00 Test Item Value Reference Range Interpretation Comments UA Glucose (test code Negative (06/30/22 6:13 = UA Glucose) AM) [facility] AND [id number] 11:13:00 Test Item Value Reference Range Interpretation Comments UA Ketones (test code = UA Ketones) 40 mg/dL [facility] AND [id number] 11:13:00 Test Item Value Reference Range Interpretation Comments UA Bili (test code = Small *ABN*(06/30/22 UA Bili) 6:13 AM) [facility] AND [id number] 11:13:00 Test Item Value Reference Range Interpretation Comments UA Blood (test code = Negative (06/30/22 6:13 UA Blood) AM) [facility] AND [id number] 11:13:00 Test Item Value Reference Range Interpretation Comments UA Urobilinogen (test code = UA 1.0 0.1-1.0 Urobilinogen) [facility] AND [id number] 11:13:00 Test Item Value Reference Range Interpretation Comments UA Nitrite (test code Negative (06/30/22 6:13 = UA Nitrite) AM) [facility] AND [id number] 11:13:00 Test Item Value Reference Range Interpretation Comments UA Leuk Est (test Negative (06/30/22 6:13 code = UA Leuk Est) AM) [facility] [id number] 11:13:00 Test Item Value Reference Range Interpretation Comments UA Sq Epi (test code = UA Sq Occasional /LPF Epi) [facility] [id number] 11:13:00 Test Item Value Reference Range Interpretation Comments UA WBC (test code = 1 See_Comment [Automa sivakumar message] The UA WBC) system which ge nerated this result transmit sivakumar reference range : <=5. The reference range was not used to interpr et this result as lida l/abnormal. [facility] AND [id number] 11:13:00 Test Item Value Reference Range Interpretation Comments UA RBC (test code = no gt See_Comment [Automa sivakumar message] The UA RBC) system which ge nerated this result transmit sivakumar reference range : <=2. The reference range was not used to interpr et this result as lida l/abnormal. [facility] AND [id number] 11:13:00 Test Item Value Reference Range Interpretation Comments UA Mucus (test code = UA Mucus) Few /LPF [facility] AND [id number] 11:13:00 Test Item Value Reference Range Interpretation Comments UA Hyal Cast (test 4 See_Comment [Automat ed message] The code = UA Hyal Cast) system which generated this result transmit sivakumar reference range : <=2. The reference range was not used to interpr et this result as lida l/abnormal. [facility] AND [id number] 11:13:00 Test Item Value Reference Range Interpretation Comments UA Trans Epi (test code = UA Trans Epi) 2 [facility] AND [id number] 11:13:00 Test Item Value Reference Range Interpretation Comments UA Color (test code = Yellow *NA*(06/30/22 UA Color) 6:13 AM) [facility] AND [id number] 11:13:00 Test Item Value Reference Range Interpretation Comments UA Turbidity (test code = Clear (06/30/22 6:13 UA Turbidity) AM) [facility] [id number] 11:13:00 Test Item Value Reference Range Interpretation Comments UA Spec Grav (test code = UA Spec 1.025 1 Grav) [facility] AND [id number] 11:13:00 Test Item Value Reference Range Interpretation Comments UA pH (test code = UA pH) 5.5 1 5.0-8.0 [facility] AND [id number] 11:13:00 Test Item Value Reference Range Interpretation Comments UA Protein (test code Negative (06/30/22 6:13 = UA Protein) AM) [facility] AND [id number] 11:13:00 Test Item Value Reference Range Interpretation Comments UA Glucose (test code Negative (06/30/22 6:13 = UA Glucose) AM) [facility] AND [id number] 11:13:00 Test Item Value Reference Range Interpretation Comments UA Ketones (test code = UA Ketones) 40 mg/dL [facility] AND [id number] 11:13:00 Test Item Value Reference Range Interpretation Comments UA Bili (test code = Small *ABN*(06/30/22 UA Bili) 6:13 AM) [facility] AND [id number] 11:13:00 Test Item Value Reference Range Interpretation Comments UA Blood (test code = Negative (06/30/22 6:13 UA Blood) AM) [facility] AND [id number] 11:13:00 Test Item Value Reference Range Interpretation Comments UA Urobilinogen (test code = UA 1.0 0.1-1.0 Urobilinogen) [facility] AND [id number] 11:13:00 Test Item Value Reference Range Interpretation Comments UA Nitrite (test code Negative (06/30/22 6:13 = UA Nitrite) AM) [facility] AND [id number] 11:13:00 Test Item Value Reference Range Interpretation Comments UA Leuk Est (test Negative (06/30/22 6:13 code = UA Leuk Est) AM) [facility] AND [id number] 11:13:00 Test Item Value Reference Range Interpretation Comments UA Sq Epi (test code = UA Sq Occasional /LPF Epi) [facility] AND [id number] 11:13:00 Test Item Value Reference Range Interpretation Comments UA WBC (test code = 1 See_Comment [Automa sivakumar message] The UA WBC) system which ge nerated this result transmit sivakumar reference range : <=5. The reference range was not used to interpr et this result as lida l/abnormal. [facility] AND [id number] 11:13:00 Test Item Value Reference Range Interpretation Comments UA RBC (test code = no gt See_Comment [Automa sivakumar message] The UA RBC) system which ge nerated this result transmit sivakumar reference range : <=2. The reference range was not used to interpr et this result as lida l/abnormal. [facility] AND [id number] 11:13:00 Test Item Value Reference Range Interpretation Comments UA Mucus (test code = UA Mucus) Few /LPF [facility] AND [id number] 11:13:00 Test Item Value Reference Range Interpretation Comments UA Hyal Cast (test 4 See_Comment [Automat ed message] The code = UA Hyal Cast) system which generated this result transmit sivakumar reference range : <=2. The reference range was not used to interpr et this result as lida l/abnormal. [facility] AND [id number] 11:13:00 Test Item Value Reference Range Interpretation Comments UA Trans Epi (test code = UA Trans Epi) 2 [id number] 09:31:00 Test Item Value Reference Range Interpretation Comments Macrocyte (test code = 2+ *ABN*(06/30/22 Macrocyte) 4:31 AM) [place] 326012-09-15 09:31:00 Test Item Value Reference Range Interpretation Comments Glucose Lvl (test code = Glucose Lvl) 65 70-99 [place] 326012-09-15 09:31:00 Test Item Value Reference Range Interpretation Comments BUN (test code = BUN) 26 7-22 [place] 326012-09-15 09:31:00 Test Item Value Reference Range Interpretation Comments Creatinine Lvl (test code = Creatinine 0.87 0.50-1.40 Lvl) [place] 326012-09-15 09:31:00 Test Item Value Reference Range Interpretation Comments Sodium Lvl (test code = Sodium Lvl) 139 135-145 [facility]2022-09-15 09:31:00 Test Item Value Reference Range Interpretation Comments Potassium Lvl (test code = Potassium 4.2 3.5-5.1 Lvl) [place] 326012-09-15 09:31:00 Test Item Value Reference Range Interpretation Comments Chloride Lvl (test code = Chloride Lvl) 110 95-109 [place] 326012-09-15 09:31:00 Test Item Value Reference Range Interpretation Comments CO2 (test code = CO2) 23 24-32 [place] 326012-09-15 09:31:00 Test Item Value Reference Range Interpretation Comments Calcium Lvl (test code = Calcium Lvl) 8.9 8.5-10.5 [place] 326012-09-15 09:31:00 Test Item Value Reference Range Interpretation Comments Total Protein (test code = Total 6.1 6.4-8.4 Protein) [place] [address]-09-15 09:31:00 Test Item Value Reference Range Interpretation Comments Albumin Lvl (test code = Albumin Lvl) 2.7 3.5-5.0 [place] 326012-09-15 09:31:00 Test Item Value Reference Range Interpretation Comments ALT (test code = ALT) 17 See_Comment [Auto mated message] The system which ge nerated this result transmit sivakumar reference range : <=65. The reference range was not used to interpr et this result as lida l/abnormal. [place] 326012-09-15 09:31:00 Test Item Value Reference Range Interpretation Comments AST (test code = AST) 20 See_Comment [Auto mated message] The system which ge nerated this result transmit sivakumar reference range : <=37. The reference range was not used to interpr et this result as lida l/abnormal. [facility] [id number] 09:31:00 Test Item Value Reference Range Interpretation Comments Alk Phos (test code = Alk Phos) 121 39-136 [facility] [id number] 09:31:00 Test Item Value Reference Range Interpretation Comments Bili Total (test code = Bili Total) 2.1 0.2-1.3 [place] 326012-09-15 09:31:00 Test Item Value Reference Range Interpretation Comments AGAP (test code = AGAP) 10.2 10.0-20.0 [facility] [id number] 09:31:00 Test Item Value Reference Range Interpretation Comments B/C Ratio (test code = B/C Ratio) 30 1 6-25 [facility]2022-09-15 09:31:00 Test Item Value Reference Range Interpretation Comments Globulin (test code = Globulin) 3.4 2.7-4.2 [place] [address]-09-15 09:31:00 Test Item Value Reference Range Interpretation Comments A/G Ratio (test code = A/G Ratio) 0.8 1 0.7-1.6 [place] [address]-09-15 09:31:00 Test Item Value Reference Range Interpretation Comments eGFR (test code = eGFR) 83 [id number] 09:31:00 Test Item Value Reference Range Interpretation Comments WBC (test code = WBC) 20.6 3.7-10.4 [place] [address]-09-15 09:31:00 Test Item Value Reference Range Interpretation Comments RBC (test code = RBC) 2.45 4.70-6.10 [place] [address]-09-15 09:31:00 Test Item Value Reference Range Interpretation Comments Hgb (test code = Hgb) 8.9 14.0-18.0 [place] [address]-09-15 09:31:00 Test Item Value Reference Range Interpretation Comments Hct (test code = Hct) 26.3 42.0-54.0 [place] 765532-09-15 09:31:00 Test Item Value Reference Range Interpretation Comments MCV (test code = MCV) 107.4 80.0-94.0 [place] [address]-09-15 09:31:00 Test Item Value Reference Range Interpretation Comments MCH (test code = MCH) 36.2 pg 27.0-31.0 [place] [address]-09-15 09:31:00 Test Item Value Reference Range Interpretation Comments MCHC (test code = MCHC) 33.7 32.0-36.0 [place] [address]-09-15 09:31:00 Test Item Value Reference Range Interpretation Comments RDW (test code = RDW) 13.6 11.5-14.5 [place] 765532-09-15 09:31:00 Test Item Value Reference Range Interpretation Comments Platelet (test code = Platelet) 455 613-450 [place] 765532-09-15 09:31:00 Test Item Value Reference Range Interpretation Comments MPV (test code = MPV) 7.1 7.4-10.4 [place] [address]-09-15 09:31:00 Test Item Value Reference Range Interpretation Comments Segs (test code = Segs) 88.8 45.0-75.0 [place] [address]-09-15 09:31:00 Test Item Value Reference Range Interpretation Comments Lymphocytes (test code = Lymphocytes) 3.9 20.0-40.0 [place] [address]-09-15 09:31:00 Test Item Value Reference Range Interpretation Comments Monocytes (test code = Monocytes) 7.2 2.0-12.0 [place] [address]-09-15 09:31:00 Test Item Value Reference Range Interpretation Comments Basophils (test code = 0.1 See_Comment [Aut omated message] The Basophils) system which ge nerated this result tra nsmitted reference range : <=1.0. The reference r mirela was not used to int erpret this result as normal/abnormal . [place] 765532-09-15 09:31:00 Test Item Value Reference Range Interpretation Comments Neutrophils # (test code = Neutrophils 18.3 1.5-8.1 #) [place] [address]-09-15 09:31:00 Test Item Value Reference Range Interpretation Comments Lymphocytes # (test code = Lymphocytes 0.8 1.0-5.5 #) [place] [address]-09-15 09:31:00 Test Item Value Reference Range Interpretation Comments Monocytes # (test code 1.5 See_Comment [Aut omated message] The = Monocytes #) system which generated this result tra nsmitted reference range : <=0.8. The reference r mirela was not used to int erpret this result as normal/abnormal . [place] 765532-09-15 09:31:00 Test Item Value Reference Range Interpretation Comments Macrocyte (test code = 2+ *ABN*(06/30/22 Macrocyte) 4:31 AM) [place] 326012-09-15 09:31:00 Test Item Value Reference Range Interpretation Comments Glucose Lvl (test code = Glucose Lvl) 65 70-99 [place] 326012-09-15 09:31:00 Test Item Value Reference Range Interpretation Comments BUN (test code = BUN) 26 7-22 [place] [address]-09-15 09:31:00 Test Item Value Reference Range Interpretation Comments Creatinine Lvl (test code = Creatinine 0.87 0.50-1.40 Lvl) [place] [address]-09-15 09:31:00 Test Item Value Reference Range Interpretation Comments Sodium Lvl (test code = Sodium Lvl) 139 135-145 [place] [address]-09-15 09:31:00 Test Item Value Reference Range Interpretation Comments Potassium Lvl (test code = Potassium 4.2 3.5-5.1 Lvl) [address]09-15 09:31:00 Test Item Value Reference Range Interpretation Comments Chloride Lvl (test code = Chloride Lvl) 110 95-109 [place] [address]-09-15 09:31:00 Test Item Value Reference Range Interpretation Comments CO2 (test code = CO2) 23 24-32 [place] [address]-09-15 09:31:00 Test Item Value Reference Range Interpretation Comments Calcium Lvl (test code = Calcium Lvl) 8.9 8.5-10.5 [place] [address]-09-15 09:31:00 Test Item Value Reference Range Interpretation Comments Total Protein (test code = Total 6.1 6.4-8.4 Protein) [place] [address]-09-15 09:31:00 Test Item Value Reference Range Interpretation Comments Albumin Lvl (test code = Albumin Lvl) 2.7 3.5-5.0 [place] [address]-09-15 09:31:00 Test Item Value Reference Range Interpretation Comments ALT (test code = ALT) 17 See_Comment [Auto mated message] The system which ge nerated this result transmit sivakumar reference range : <=65. The reference range was not used to interpr et this result as lida l/abnormal. [place] [address]-09-15 09:31:00 Test Item Value Reference Range Interpretation Comments AST (test code = AST) 20 See_Comment [Auto mated message] The system which ge nerated this result transmit sivakumar reference range : <=37. The reference range was not used to interpr et this result as lida l/abnormal. [place] [address]-09-15 09:31:00 Test Item Value Reference Range Interpretation Comments Alk Phos (test code = Alk Phos) 121 39-136 [place] 326012-09-15 09:31:00 Test Item Value Reference Range Interpretation Comments Bili Total (test code = Bili Total) 2.1 0.2-1.3 [place] 326012-09-15 09:31:00 Test Item Value Reference Range Interpretation Comments AGAP (test code = AGAP) 10.2 10.0-20.0 [place] [address]-09-15 09:31:00 Test Item Value Reference Range Interpretation Comments B/C Ratio (test code = B/C Ratio) 30 1 6-25 [place] [address]-09-15 09:31:00 Test Item Value Reference Range Interpretation Comments Globulin (test code = Globulin) 3.4 2.7-4.2 [place] 326012-09-15 09:31:00 Test Item Value Reference Range Interpretation Comments A/G Ratio (test code = A/G Ratio) 0.8 1 0.7-1.6 [place] [address]-09-15 09:31:00 Test Item Value Reference Range Interpretation Comments eGFR (test code = eGFR) 83 [place] [address]-09-15 09:31:00 Test Item Value Reference Range Interpretation Comments WBC (test code = WBC) 20.6 3.7-10.4 [place] [address]-09-15 09:31:00 Test Item Value Reference Range Interpretation Comments RBC (test code = RBC) 2.45 4.70-6.10 [place] [address]-09-15 09:31:00 Test Item Value Reference Range Interpretation Comments Hgb (test code = Hgb) 8.9 14.0-18.0 [place] [address]-09-15 09:31:00 Test Item Value Reference Range Interpretation Comments Hct (test code = Hct) 26.3 42.0-54.0 [place] [address]-09-15 09:31:00 Test Item Value Reference Range Interpretation Comments MCV (test code = MCV) 107.4 80.0-94.0 [place] [address]-09-15 09:31:00 Test Item Value Reference Range Interpretation Comments MCH (test code = MCH) 36.2 pg 27.0-31.0 [place] 326012-09-15 09:31:00 Test Item Value Reference Range Interpretation Comments Glucose Lvl (test code = Glucose Lvl) 65 70-99 [place] 326012-09-15 09:31:00 Test Item Value Reference Range Interpretation Comments BUN (test code = BUN) 26 7-22 [place] [address]-09-15 09:31:00 Test Item Value Reference Range Interpretation Comments Creatinine Lvl (test code = Creatinine 0.87 0.50-1.40 Lvl) [place] [address]-09-15 09:31:00 Test Item Value Reference Range Interpretation Comments Sodium Lvl (test code = Sodium Lvl) 139 135-145 [place] 326012-09-15 09:31:00 Test Item Value Reference Range Interpretation Comments Potassium Lvl (test code = Potassium 4.2 3.5-5.1 Lvl) [address]09-15 09:31:00 Test Item Value Reference Range Interpretation Comments Chloride Lvl (test code = Chloride Lvl) 110 95-109 [place] [address]-09-15 09:31:00 Test Item Value Reference Range Interpretation Comments CO2 (test code = CO2) 23 24-32 [place] [address]-09-15 09:31:00 Test Item Value Reference Range Interpretation Comments Calcium Lvl (test code = Calcium Lvl) 8.9 8.5-10.5 [place] [address]-09-15 09:31:00 Test Item Value Reference Range Interpretation Comments Total Protein (test code = Total 6.1 6.4-8.4 Protein) [place] [address]-09-15 09:31:00 Test Item Value Reference Range Interpretation Comments Albumin Lvl (test code = Albumin Lvl) 2.7 3.5-5.0 [place] 326012-09-15 09:31:00 Test Item Value Reference Range Interpretation Comments ALT (test code = ALT) 17 See_Comment [Auto mated message] The system which ge nerated this result transmit sivakumar reference range : <=65. The reference range was not used to interpr et this result as lida l/abnormal. [place] 326012-09-15 09:31:00 Test Item Value Reference Range Interpretation Comments AST (test code = AST) 20 See_Comment [Auto mated message] The system which ge nerated this result transmit sivakumar reference range : <=37. The reference range was not used to interpr et this result as lida l/abnormal. [place] 326012-09-15 09:31:00 Test Item Value Reference Range Interpretation Comments Alk Phos (test code = Alk Phos) 121 39-136 [place] 326012-09-15 09:31:00 Test Item Value Reference Range Interpretation Comments Bili Total (test code = Bili Total) 2.1 0.2-1.3 [place] [address]-09-15 09:31:00 Test Item Value Reference Range Interpretation Comments AGAP (test code = AGAP) 10.2 10.0-20.0 [place] [address]-09-15 09:31:00 Test Item Value Reference Range Interpretation Comments B/C Ratio (test code = B/C Ratio) 30 1 6-25 [place] [address]-09-15 09:31:00 Test Item Value Reference Range Interpretation Comments Globulin (test code = Globulin) 3.4 2.7-4.2 [place] [address]-09-15 09:31:00 Test Item Value Reference Range Interpretation Comments A/G Ratio (test code = A/G Ratio) 0.8 1 0.7-1.6 [place] [address]-09-15 09:31:00 Test Item Value Reference Range Interpretation Comments eGFR (test code = eGFR) 83 [place] [address]-09-15 09:31:00 Test Item Value Reference Range Interpretation Comments WBC (test code = WBC) 20.6 3.7-10.4 [place] [address]-09-15 09:31:00 Test Item Value Reference Range Interpretation Comments RBC (test code = RBC) 2.45 4.70-6.10 [place] [address]-09-15 09:31:00 Test Item Value Reference Range Interpretation Comments Hgb (test code = Hgb) 8.9 14.0-18.0 [place] [address]-09-15 09:31:00 Test Item Value Reference Range Interpretation Comments Hct (test code = Hct) 26.3 42.0-54.0 [place] [address]-09-15 09:31:00 Test Item Value Reference Range Interpretation Comments MCV (test code = MCV) 107.4 80.0-94.0 [place] [address]-09-15 09:31:00 Test Item Value Reference Range Interpretation Comments MCH (test code = MCH) 36.2 pg 27.0-31.0 [place] [address]-09-15 09:31:00 Test Item Value Reference Range Interpretation Comments MCHC (test code = MCHC) 33.7 32.0-36.0 [place] 765532-09-15 09:31:00 Test Item Value Reference Range Interpretation Comments RDW (test code = RDW) 13.6 11.5-14.5 [place] [address]-09-15 09:31:00 Test Item Value Reference Range Interpretation Comments Platelet (test code = Platelet) 459 133-450 [place] 765532-09-15 09:31:00 Test Item Value Reference Range Interpretation Comments MPV (test code = MPV) 7.1 7.4-10.4 [place] [address]-09-15 09:31:00 Test Item Value Reference Range Interpretation Comments Segs (test code = Segs) 88.8 45.0-75.0 [place] [address]-09-15 09:31:00 Test Item Value Reference Range Interpretation Comments Lymphocytes (test code = Lymphocytes) 3.9 20.0-40.0 [place] [address]-09-15 09:31:00 Test Item Value Reference Range Interpretation Comments Monocytes (test code = Monocytes) 7.2 2.0-12.0 [place] [address]-09-15 09:31:00 Test Item Value Reference Range Interpretation Comments Basophils (test code = 0.1 See_Comment [Aut omated message] The Basophils) system which ge nerated this result tra nsmitted reference range : <=1.0. The reference r mirela was not used to int erpret this result as normal/abnormal . [place] 765532-09-15 09:31:00 Test Item Value Reference Range Interpretation Comments Neutrophils # (test code = Neutrophils 18.3 1.5-8.1 #) [place] 765532-09-15 09:31:00 Test Item Value Reference Range Interpretation Comments Lymphocytes # (test code = Lymphocytes 0.8 1.0-5.5 #) [id number] 09:31:00 Test Item Value Reference Range Interpretation Comments Monocytes # (test code 1.5 See_Comment [Aut omated message] The = Monocytes #) system which generated this result tra nsmitted reference range : <=0.8. The reference r mirela was not used to int erpret this result as normal/abnormal . [facility]RnnyveoQOXEFZMUPR0224-41-73 09:31:00 Test Item Value Reference Range Interpretation Comments Macrocyte (test code = 2+ *ABN*(06/30/22 Macrocyte) 4:31 AM) [id number] 09:31:00 Test Item Value Reference Range Interpretation Comments MCHC (test code = MCHC) 33.7 32.0-36.0 [facility]gjxpupLHGYTOIFGL4667-56-06 09:31:00 Test Item Value Reference Range Interpretation Comments RDW (test code = RDW) 13.6 11.5-14.5 [place] 765532-09-15 09:31:00 Test Item Value Reference Range Interpretation Comments Platelet (test code = Platelet) 459 133-450 [facility] HospitalUuuvlmdCAPHXORPYK9909-14-48 09:31:00 Test Item Value Reference Range Interpretation Comments MPV (test code = MPV) 7.1 7.4-10.4 [place] [address]-09-15 09:31:00 Test Item Value Reference Range Interpretation Comments Segs (test code = Segs) 88.8 45.0-75.0 [place] 765532-09-15 09:31:00 Test Item Value Reference Range Interpretation Comments Lymphocytes (test code = Lymphocytes) 3.9 20.0-40.0 [place] [address]-09-15 09:31:00 Test Item Value Reference Range Interpretation Comments Monocytes (test code = Monocytes) 7.2 2.0-12.0 [place] 765532-09-15 09:31:00 Test Item Value Reference Range Interpretation Comments Basophils (test code = 0.1 See_Comment [Aut omated message] The Basophils) system which ge nerated this result tra nsmitted reference range : <=1.0. The reference r mirela was not used to int erpret this result as normal/abnormal . [place] [address]-09-15 09:31:00 Test Item Value Reference Range Interpretation Comments Neutrophils # (test code = Neutrophils 18.3 1.5-8.1 #) [place] [address]-09-15 09:31:00 Test Item Value Reference Range Interpretation Comments Lymphocytes # (test code = Lymphocytes 0.8 1.0-5.5 #) [place] [address]-09-15 09:31:00 Test Item Value Reference Range Interpretation Comments Monocytes # (test code 1.5 See_Comment [Aut omated message] The = Monocytes #) system which generated this result tra nsmitted reference range : <=0.8. The reference r mirela was not used to int erpret this result as normal/abnormal . [place] [address]-09-15 09:31:00 Test Item Value Reference Range Interpretation Comments Macrocyte (test code = 2+ *ABN*(06/30/22 Macrocyte) 4:31 AM) [place] [address]-09-15 09:31:00 Test Item Value Reference Range Interpretation Comments Glucose Lvl (test code = Glucose Lvl) 65 70-99 [place] [address]-09-15 09:31:00 Test Item Value Reference Range Interpretation Comments BUN (test code = BUN) 26 7-22 [place] [address]-09-15 09:31:00 Test Item Value Reference Range Interpretation Comments Creatinine Lvl (test code = Creatinine 0.87 0.50-1.40 Lvl) [place] [address]-09-15 09:31:00 Test Item Value Reference Range Interpretation Comments Sodium Lvl (test code = Sodium Lvl) 139 135-145 [place] [address]-09-15 09:31:00 Test Item Value Reference Range Interpretation Comments Potassium Lvl (test code = Potassium 4.2 3.5-5.1 Lvl) [place] [address]-09-15 09:31:00 Test Item Value Reference Range Interpretation Comments Chloride Lvl (test code = Chloride Lvl) 110 95-109 [place] [address]-09-15 09:31:00 Test Item Value Reference Range Interpretation Comments CO2 (test code = CO2) 23 24-32 [place] 326012-09-15 09:31:00 Test Item Value Reference Range Interpretation Comments Calcium Lvl (test code = Calcium Lvl) 8.9 8.5-10.5 [place] 326012-09-15 09:31:00 Test Item Value Reference Range Interpretation Comments Total Protein (test code = Total 6.1 6.4-8.4 Protein) [place] [address]-09-15 09:31:00 Test Item Value Reference Range Interpretation Comments Albumin Lvl (test code = Albumin Lvl) 2.7 3.5-5.0 [facility] [id number] 09:31:00 Test Item Value Reference Range Interpretation Comments ALT (test code = ALT) 17 See_Comment [Auto mated message] The system which ge nerated this result transmit sivakumar reference range : <=65. The reference range was not used to interpr et this result as lida l/abnormal. [facility] [id number] 09:31:00 Test Item Value Reference Range Interpretation Comments AST (test code = AST) 20 See_Comment [Auto mated message] The system which ge nerated this result transmit sivakumar reference range : <=37. The reference range was not used to interpr et this result as lida l/abnormal. [facility] [id number] 09:31:00 Test Item Value Reference Range Interpretation Comments Alk Phos (test code = Alk Phos) 121 39-136 [facility] HospitalDPSI [id number] 09:31:00 Test Item Value Reference Range Interpretation Comments Bili Total (test code = Bili Total) 2.1 0.2-1.3 [place] 326012-09-15 09:31:00 Test Item Value Reference Range Interpretation Comments AGAP (test code = AGAP) 10.2 10.0-20.0 [facility] [id number] 09:31:00 Test Item Value Reference Range Interpretation Comments B/C Ratio (test code = B/C Ratio) 30 1 6-25 [facility] [id number] 09:31:00 Test Item Value Reference Range Interpretation Comments Globulin (test code = Globulin) 3.4 2.7-4.2 [facility] [id number] 09:31:00 Test Item Value Reference Range Interpretation Comments A/G Ratio (test code = A/G Ratio) 0.8 1 0.7-1.6 [place] 326012-09-15 09:31:00 Test Item Value Reference Range Interpretation Comments eGFR (test code = eGFR) 83 [facility] HospitalQodgtkqELBYSRNFOD0843-27-41 09:31:00 Test Item Value Reference Range Interpretation Comments WBC (test code = WBC) 20.6 3.7-10.4 [place] 765532-09-15 09:31:00 Test Item Value Reference Range Interpretation Comments RBC (test code = RBC) 2.45 4.70-6.10 [place] [address]-09-15 09:31:00 Test Item Value Reference Range Interpretation Comments Hgb (test code = Hgb) 8.9 14.0-18.0 [place] [address]-09-15 09:31:00 Test Item Value Reference Range Interpretation Comments Hct (test code = Hct) 26.3 42.0-54.0 [place] 765532-09-15 09:31:00 Test Item Value Reference Range Interpretation Comments MCV (test code = MCV) 107.4 80.0-94.0 [place] [address]-09-15 09:31:00 Test Item Value Reference Range Interpretation Comments MCH (test code = MCH) 36.2 pg 27.0-31.0 [place] [address]-09-15 09:31:00 Test Item Value Reference Range Interpretation Comments MCHC (test code = MCHC) 33.7 32.0-36.0 [place] [address]-09-15 09:31:00 Test Item Value Reference Range Interpretation Comments RDW (test code = RDW) 13.6 11.5-14.5 [place] [address]-09-15 09:31:00 Test Item Value Reference Range Interpretation Comments Platelet (test code = Platelet) 459 383-450 [facility] HospitalCwdcauwSDUWPUZVYF1614-59-14 09:31:00 Test Item Value Reference Range Interpretation Comments MPV (test code = MPV) 7.1 7.4-10.4 [place] 765532-09-15 09:31:00 Test Item Value Reference Range Interpretation Comments Segs (test code = Segs) 88.8 45.0-75.0 [place] [address]-09-15 09:31:00 Test Item Value Reference Range Interpretation Comments Lymphocytes (test code = Lymphocytes) 3.9 20.0-40.0 [place] [address]-09-15 09:31:00 Test Item Value Reference Range Interpretation Comments Monocytes (test code = Monocytes) 7.2 2.0-12.0 [place] [address]-09-15 09:31:00 Test Item Value Reference Range Interpretation Comments Basophils (test code = 0.1 See_Comment [Aut omated message] The Basophils) system which ge nerated this result tra nsmitted reference range : <=1.0. The reference r mirela was not used to int erpret this result as normal/abnormal . [place] [address]-09-15 09:31:00 Test Item Value Reference Range Interpretation Comments Neutrophils # (test code = Neutrophils 18.3 1.5-8.1 #) [place] [address]-09-15 09:31:00 Test Item Value Reference Range Interpretation Comments Lymphocytes # (test code = Lymphocytes 0.8 1.0-5.5 #) [place] [address]-09-15 09:31:00 Test Item Value Reference Range Interpretation Comments Monocytes # (test code 1.5 See_Comment [Aut omated message] The = Monocytes #) system which generated this result tra nsmitted reference range : <=0.8. The reference r mirela was not used to int erpret this result as normal/abnormal . [place] 765532-09-15 09:31:00 Test Item Value Reference Range Interpretation Comments Macrocyte (test code = 2+ *ABN*(06/30/22 Macrocyte) 4:31 AM) [place] [address]-09-15 09:31:00 Test Item Value Reference Range Interpretation Comments Glucose Lvl (test code = Glucose Lvl) 65 70-99 [place] 326012-09-15 09:31:00 Test Item Value Reference Range Interpretation Comments BUN (test code = BUN) 26 7-22 [place] 326012-09-15 09:31:00 Test Item Value Reference Range Interpretation Comments Creatinine Lvl (test code = Creatinine 0.87 0.50-1.40 Lvl) [place] [address]-09-15 09:31:00 Test Item Value Reference Range Interpretation Comments Sodium Lvl (test code = Sodium Lvl) 139 135-145 [place] [address]-09-15 09:31:00 Test Item Value Reference Range Interpretation Comments Potassium Lvl (test code = Potassium 4.2 3.5-5.1 Lvl) [place] [address]-09-15 09:31:00 Test Item Value Reference Range Interpretation Comments Chloride Lvl (test code = Chloride Lvl) 110 95-109 [place] [address]-09-15 09:31:00 Test Item Value Reference Range Interpretation Comments CO2 (test code = CO2) 23 24-32 [place] [address]-09-15 09:31:00 Test Item Value Reference Range Interpretation Comments Calcium Lvl (test code = Calcium Lvl) 8.9 8.5-10.5 [place] [address]-09-15 09:31:00 Test Item Value Reference Range Interpretation Comments Total Protein (test code = Total 6.1 6.4-8.4 Protein) [place] [address]-09-15 09:31:00 Test Item Value Reference Range Interpretation Comments Albumin Lvl (test code = Albumin Lvl) 2.7 3.5-5.0 [place] [address]-09-15 09:31:00 Test Item Value Reference Range Interpretation Comments ALT (test code = ALT) 17 See_Comment [Auto mated message] The system which ge nerated this result transmit sivakumar reference range : <=65. The reference range was not used to interpr et this result as ldia l/abnormal. [place] [address]-09-15 09:31:00 Test Item Value Reference Range Interpretation Comments AST (test code = AST) 20 See_Comment [Auto mated message] The system which ge nerated this result transmit sivakumar reference range : <=37. The reference range was not used to interpr et this result as lida l/abnormal. [place] [address]-09-15 09:31:00 Test Item Value Reference Range Interpretation Comments Alk Phos (test code = Alk Phos) 121 39-136 [place] [address]-09-15 09:31:00 Test Item Value Reference Range Interpretation Comments Bili Total (test code = Bili Total) 2.1 0.2-1.3 [place] 326012-09-15 09:31:00 Test Item Value Reference Range Interpretation Comments AGAP (test code = AGAP) 10.2 10.0-20.0 [place] [address]-09-15 09:31:00 Test Item Value Reference Range Interpretation Comments B/C Ratio (test code = B/C Ratio) 30 1 6-25 [place] [address]-09-15 09:31:00 Test Item Value Reference Range Interpretation Comments Globulin (test code = Globulin) 3.4 2.7-4.2 [place] [address]-09-15 09:31:00 Test Item Value Reference Range Interpretation Comments A/G Ratio (test code = A/G Ratio) 0.8 1 0.7-1.6 [place] [address]-09-15 09:31:00 Test Item Value Reference Range Interpretation Comments eGFR (test code = eGFR) 83 [place] 765532-09-15 09:31:00 Test Item Value Reference Range Interpretation Comments WBC (test code = WBC) 20.6 3.7-10.4 [place] [address]-09-15 09:31:00 Test Item Value Reference Range Interpretation Comments RBC (test code = RBC) 2.45 4.70-6.10 [place] [address]-09-15 09:31:00 Test Item Value Reference Range Interpretation Comments Hgb (test code = Hgb) 8.9 14.0-18.0 [place] [address]-09-15 09:31:00 Test Item Value Reference Range Interpretation Comments Hct (test code = Hct) 26.3 42.0-54.0 [place] [address]-09-15 09:31:00 Test Item Value Reference Range Interpretation Comments MCV (test code = MCV) 107.4 80.0-94.0 [place] [address]-09-15 09:31:00 Test Item Value Reference Range Interpretation Comments MCH (test code = MCH) 36.2 pg 27.0-31.0 [place] [address]-09-15 09:31:00 Test Item Value Reference Range Interpretation Comments MCHC (test code = MCHC) 33.7 32.0-36.0 [facility] HospitalSzbpnuxGCUCHIJZMX8607-66-28 09:31:00 Test Item Value Reference Range Interpretation Comments RDW (test code = RDW) 13.6 11.5-14.5 [facility] HospitalLfiisywTYVMDZLULY8377-87-93 09:31:00 Test Item Value Reference Range Interpretation Comments Platelet (test code = Platelet) 459 133-450 [facility] HospitalVzyemynKKBSJJYHFK7806-42-85 09:31:00 Test Item Value Reference Range Interpretation Comments MPV (test code = MPV) 7.1 7.4-10.4 [place] 765532-09-15 09:31:00 Test Item Value Reference Range Interpretation Comments Segs (test code = Segs) 88.8 45.0-75.0 [place] 765532-09-15 09:31:00 Test Item Value Reference Range Interpretation Comments Lymphocytes (test code = Lymphocytes) 3.9 20.0-40.0 [facility] HospitalGqbojjtVRYHQEXVEB2471-85-31 09:31:00 Test Item Value Reference Range Interpretation Comments Monocytes (test code = Monocytes) 7.2 2.0-12.0 [facility] HospitalDlrmiozWNLWWFTIXT9427-83-30 09:31:00 Test Item Value Reference Range Interpretation Comments Basophils (test code = 0.1 See_Comment [Aut omated message] The Basophils) system which ge nerated this result tra nsmitted reference range : <=1.0. The reference r mirela was not used to int erpret this result as normal/abnormal . [facility] HospitalNwjhbnlPNDFNRKAEE8173-05-20 09:31:00 Test Item Value Reference Range Interpretation Comments Neutrophils # (test code = Neutrophils 18.3 1.5-8.1 #) [place] 765532-09-15 09:31:00 Test Item Value Reference Range Interpretation Comments Lymphocytes # (test code = Lymphocytes 0.8 1.0-5.5 #) [place] [address]-09-15 09:31:00 Test Item Value Reference Range Interpretation Comments Monocytes # (test code 1.5 See_Comment [Aut omated message] The = Monocytes #) system which generated this result tra nsmitted reference range : <=0.8. The reference r mirela was not used to int erpret this result as normal/abnormal . [place] [address]-09-13 10:42:00 Test Item Value Reference Range Interpretation Comments Eosinophils (test code = 0.2 See_Comment [A utomated message] The Eosinophils) system which ge nerated this result tra nsmitted reference range : <=4.0. The reference r mirela was not used to int erpret this result as normal/abnormal . [facility] HospitalQpeztvdVBIRXYPDYQ5616-92-87 10:42:00 Test Item Value Reference Range Interpretation Comments Eosinophils (test code = 0.2 See_Comment [A utomated message] The Eosinophils) system which ge nerated this result tra nsmitted reference range : <=4.0. The reference r mirela was not used to int erpret this result as normal/abnormal . [facility] HospitalYiimruuAMPUEKUGNZ3550-59-31 10:42:00 Test Item Value Reference Range Interpretation Comments Eosinophils (test code = 0.2 See_Comment [A utomated message] The Eosinophils) system which ge nerated this result tra nsmitted reference range : <=4.0. The reference r mirela was not used to int erpret this result as normal/abnormal . [facility] HospitalEwjyjvwNTHOYXWNZL6645-57-06 10:42:00 Test Item Value Reference Range Interpretation Comments Eosinophils (test code = 0.2 See_Comment [A utomated message] The Eosinophils) system which ge nerated this result tra nsmitted reference range : <=4.0. The reference r mirela was not used to int erpret this result as normal/abnormal . [facility] HospitalGzbhkwnHLZZBZMNEF7953-15-03 10:42:00 Test Item Value Reference Range Interpretation Comments Eosinophils (test code = 0.2 See_Comment [A utomated message] The Eosinophils) system which ge nerated this result tra nsmitted reference range : <=4.0. The reference r mirela was not used to int erpret this result as normal/abnormal . [facility] [id number] 09:48:00 Test Item Value Reference Range Interpretation Comments MMA Qnt (test code = MMA Qnt) 281 [facility] [id number] 09:48:00 Test Item Value Reference Range Interpretation Comments ABO/Rh (test code = ABO/Rh) O POS [facility] [id number] 09:48:00 Test Item Value Reference Range Interpretation Comments Antibody Scrn (test Negative (06/24/22 4:48 code = Antibody Scrn) AM) [facility] FanKaveWAVERLY HEALTH [id number] 09:48:00 Test Item Value Reference Range Interpretation Comments MMA Qnt (test code = MMA Qnt) 281 [facility] [employer] [id number] 09:48:00 Test Item Value Reference Range Interpretation Comments ABO/Rh (test code = ABO/Rh) O POS [facility] [id number] 09:48:00 Test Item Value Reference Range Interpretation Comments Antibody Scrn (test Negative (06/24/22 4:48 code = Antibody Scrn) AM) [facility]2022-09-09 09:48:00 Test Item Value Reference Range Interpretation Comments MMA Qnt (test code = MMA Qnt) 281 [facility] [id number] 09:48:00 Test Item Value Reference Range Interpretation Comments ABO/Rh (test code = ABO/Rh) O POS [facility] [id number] 09:48:00 Test Item Value Reference Range Interpretation Comments Antibody Scrn (test Negative (06/24/22 4:48 code = Antibody Scrn) AM) [facility] FanKaveWAVERLY HEALTH [id number] 09:48:00 Test Item Value Reference Range Interpretation Comments MMA Qnt (test code = MMA Qnt) 281 [facility] HospitalTelesocialAltraVax [facility] [id number] 09:48:00 Test Item Value Reference Range Interpretation Comments ABO/Rh (test code = ABO/Rh) O POS [facility] [employer] [id number] 09:48:00 Test Item Value Reference Range Interpretation Comments Antibody Scrn (test Negative (06/24/22 4:48 code = Antibody Scrn) AM) [facility]2022-09-09 09:48:00 Test Item Value Reference Range Interpretation Comments MMA Qnt (test code = MMA Qnt) 281 [facility] [employer] [id number] 09:48:00 Test Item Value Reference Range Interpretation Comments ABO/Rh (test code = ABO/Rh) O POS [facility] [employer] [id number] 09:48:00 Test Item Value Reference Range Interpretation Comments Antibody Scrn (test Negative (06/24/22 4:48 code = Antibody Scrn) AM) [place] 765532-09-08 05:18:00 Test Item Value Reference Range Interpretation Comments Eosinophils # (test code 0.2 See_Comment [A utomated message] The = Eosinophils #) system [facility] generated this result tra nsmitted reference range : <=0.5. The reference r mirela was not used to int erpret this result as normal/abnormal . [place] 765532-09-08 05:18:00 Test Item Value Reference Range Interpretation Comments Eosinophils # (test code 0.2 See_Comment [A utomated message] The = Eosinophils #) system [facility] generated this result tra nsmitted reference range : <=0.5. The reference r mirela was not used to int erpret this result as normal/abnormal . [place] [address]-09-08 05:18:00 Test Item Value Reference Range Interpretation Comments Eosinophils # (test code 0.2 See_Comment [A utomated message] The = Eosinophils #) system [facility] generated this result tra nsmitted reference range : <=0.5. The reference r mirela was not used to int erpret this result as normal/abnormal . [place] [address]-09-08 05:18:00 Test Item Value Reference Range Interpretation Comments Eosinophils # (test code 0.2 See_Comment [A utomated message] The = Eosinophils #) system [facility] generated this result tra nsmitted reference range : <=0.5. The reference r mirela was not used to int erpret this result as normal/abnormal . [place] 765532-09-08 05:18:00 Test Item Value Reference Range Interpretation Comments Eosinophils # (test code 0.2 See_Comment [A utomated message] The = Eosinophils #) system [facility] generated this result tra nsmitted reference range : <=0.5. The reference r mirela was not used to int erpret this result as normal/abnormal . [place] [address]-09-07 05:03:00 Test Item Value Reference Range Interpretation Comments Basophils # (test code 0.3 See_Comment [Aut omated message] The = Basophils #) system which generated this result tra nsmitted reference range : <=0.2. The reference r mirela was not used to int erpret this result as normal/abnormal . [place] 765532-09-07 05:03:00 Test Item Value Reference Range Interpretation Comments Basophils # (test code 0.3 See_Comment [Aut omated message] The = Basophils #) system which generated this result tra nsmitted reference range : <=0.2. The reference r mirela was not used to int erpret this result as normal/abnormal . [place] 765532-09-07 05:03:00 Test Item Value Reference Range Interpretation Comments Basophils # (test code 0.3 See_Comment [Aut omated message] The = Basophils #) system which generated this result tra nsmitted reference range : <=0.2. The reference r mirela was not used to int erpret this result as normal/abnormal . [place] 765532-09-07 05:03:00 Test Item Value Reference Range Interpretation Comments Basophils # (test code 0.3 See_Comment [Aut omated message] The = Basophils #) system which generated this result tra nsmitted reference range : <=0.2. The reference r mirela was not used to int erpret this result as normal/abnormal . [facility] HospitalKirbeffWGVWORWPFA0386-34-54 05:03:00 Test Item Value Reference Range Interpretation Comments Basophils # (test code 0.3 See_Comment [Aut omated message] The = Basophils #) system which generated this result tra nsmitted reference range : <=0.2. The reference r mirela was not used to int erpret this result as normal/abnormal . [facility]2022-09-06 05:03:00 Test Item Value Reference Range Interpretation Comments Folate Lvl (test code = Folate Lvl) 16.6 [facility]2022-09-06 05:03:00 Test Item Value Reference Range Interpretation Comments Ferritin Lvl (test code = Ferritin Lvl) 309 22-676 [facility]2022-09-06 05:03:00 Test Item Value Reference Range Interpretation Comments Vitamin B12 Lvl (test code = Vitamin 123 B12 Lvl) [facility]2022-09-06 05:03:00 Test Item Value Reference Range Interpretation Comments Folate Lvl (test code = Folate Lvl) 16.6 [facility]2022-09-06 05:03:00 Test Item Value Reference Range Interpretation Comments Ferritin Lvl (test code = Ferritin Lvl) [address]2022-09-06 05:03:00 Test Item Value Reference Range Interpretation Comments Vitamin B12 Lvl (test code = Vitamin 123 B12 Lvl) [facility]2022-09-06 05:03:00 Test Item Value Reference Range Interpretation Comments Folate Lvl (test code = Folate Lvl) 16.6 [facility]2022-09-06 05:03:00 Test Item Value Reference Range Interpretation Comments Ferritin Lvl (test code = Ferritin Lvl) [address]2022-09-06 05:03:00 Test Item Value Reference Range Interpretation Comments Vitamin B12 Lvl (test code = Vitamin 123 B12 Lvl) [facility]2022-09-06 05:03:00 Test Item Value Reference Range Interpretation Comments Folate Lvl (test code = Folate Lvl) 16.6 [facility]2022-09-06 05:03:00 Test Item Value Reference Range Interpretation Comments Ferritin Lvl (test code = Ferritin Lvl) [address]2022-09-06 05:03:00 Test Item Value Reference Range Interpretation Comments Vitamin B12 Lvl (test code = Vitamin 123 B12 Lvl) [facility]2022-09-06 05:03:00 Test Item Value Reference Range Interpretation Comments Folate Lvl (test code = Folate Lvl) 16.6 [facility]2022-09-06 05:03:00 Test Item Value Reference Range Interpretation Comments Ferritin Lvl (test code = Ferritin Lvl) [address]2022-09-06 05:03:00 Test Item Value Reference Range Interpretation Comments Vitamin B12 Lvl (test code = Vitamin 123 B12 Lvl) [facility]2022-09-06 02:45:00 Test Item Value Reference Range Interpretation Comments Iron (test code = Iron) 37 [facility]2022-09-06 02:45:00 Test Item Value Reference Range Interpretation Comments TIBC (test code = TIBC) 147 [facility]2022-09-06 02:45:00 Test Item Value Reference Range Interpretation Comments % Satur Fe (test code = % Satur Fe) 25 [facility]2022-09-06 02:45:00 Test Item Value Reference Range Interpretation Comments Vitamin D, 25-OH, Total (test code = 40 Vitamin D, 25-OH, Total) [facility]2022-09-06 02:45:00 Test Item Value Reference Range Interpretation Comments Iron (test code = Iron) 37 [facility]2022-09-06 02:45:00 Test Item Value Reference Range Interpretation Comments TIBC (test code = TIBC) 147 [facility]2022-09-06 02:45:00 Test Item Value Reference Range Interpretation Comments % Satur Fe (test code = % Satur Fe) 25 [facility]2022-09-06 02:45:00 Test Item Value Reference Range Interpretation Comments Vitamin D, 25-OH, Total (test code = 40 Vitamin D, 25-OH, Total) [facility]2022-09-06 02:45:00 Test Item Value Reference Range Interpretation Comments Iron (test code = Iron) 37 [facility]2022-09-06 02:45:00 Test Item Value Reference Range Interpretation Comments TIBC (test code = TIBC) 147 [facility]2022-09-06 02:45:00 Test Item Value Reference Range Interpretation Comments % Satur Fe (test code = % Satur Fe) 25 [facility]2022-09-06 02:45:00 Test Item Value Reference Range Interpretation Comments Vitamin D, 25-OH, Total (test code = 40 Vitamin D, 25-OH, Total) [facility]2022-09-06 02:45:00 Test Item Value Reference Range Interpretation Comments Iron (test code = Iron) 37 [facility]2022-09-06 02:45:00 Test Item Value Reference Range Interpretation Comments TIBC (test code = TIBC) 147 [facility]2022-09-06 02:45:00 Test Item Value Reference Range Interpretation Comments % Satur Fe (test code = % Satur Fe) 25 [facility]2022-09-06 02:45:00 Test Item Value Reference Range Interpretation Comments Vitamin D, 25-OH, Total (test code = 40 Vitamin D, 25-OH, Total) [facility]2022-09-06 02:45:00 Test Item Value Reference Range Interpretation Comments Iron (test code = Iron) 37 [place] 763302-09-06 02:45:00 Test Item Value Reference Range Interpretation Comments TIBC (test code = TIBC) 147 [place] 763302-09-06 02:45:00 Test Item Value Reference Range Interpretation Comments % Satur Fe (test code = % Satur Fe) 25 [place] 326012-09-06 02:45:00 Test Item Value Reference Range Interpretation Comments Vitamin D, 25-OH, Total (test code = 40 Vitamin D, 25-OH, Total) [place] 326012-09-05 02:50:00 Test Item Value Reference Range Interpretation Comments Lactic Acid Lvl (test code = Lactic 3.1 0.5-2.2 Acid Lvl) [place] 326012-09-05 02:50:00 Test Item Value Reference Range Interpretation Comments Lactic Acid Lvl (test code = Lactic 3.1 0.5-2.2 Acid Lvl) [place] 326012-09-05 02:50:00 Test Item Value Reference Range Interpretation Comments Lactic Acid Lvl (test code = Lactic 3.1 0.5-2.2 Acid Lvl) [place] 326012-09-05 02:50:00 Test Item Value Reference Range Interpretation Comments Lactic Acid Lvl (test code = Lactic 3.1 0.5-2.2 Acid Lvl) [place] 326012-09-05 02:50:00 Test Item Value Reference Range Interpretation Comments Lactic Acid Lvl (test code = Lactic 3.1 0.5-2.2 Acid Lvl) [place] 326012-09-04 22:15:00 Test Item Value Reference Range Interpretation Comments Lactic Acid Lvl (test code = Lactic 4.5 0.5-2.2 Acid Lvl) [place] 326012-09-04 22:15:00 Test Item Value Reference Range Interpretation Comments Glucose Lvl (test code = Glucose Lvl) 135 70-99 [place] 326012-09-04 22:15:00 Test Item Value Reference Range Interpretation Comments BUN (test code = BUN) 46 7-22 [place] 326012-09-04 22:15:00 Test Item Value Reference Range Interpretation Comments Creatinine Lvl (test code = Creatinine 1.56 0.50-1.40 Lvl) [place] 326012-09-04 22:15:00 Test Item Value Reference Range Interpretation Comments Sodium Lvl (test code = Sodium Lvl) 140 135-145 [place] 326012-09-04 22:15:00 Test Item Value Reference Range Interpretation Comments Potassium Lvl (test code = Potassium 5.2 3.5-5.1 Lvl) [place] 326012-09-04 22:15:00 Test Item Value Reference Range Interpretation Comments Chloride Lvl (test code = Chloride Lvl) 110 95-109 [place] 326012-09-04 22:15:00 Test Item Value Reference Range Interpretation Comments CO2 (test code = CO2) 22 24-32 [place] 326012-09-04 22:15:00 Test Item Value Reference Range Interpretation Comments Calcium Lvl (test code = Calcium Lvl) 9.1 8.5-10.5 [place] 326012-09-04 22:15:00 Test Item Value Reference Range Interpretation Comments AGAP (test code = AGAP) 13.2 10.0-20.0 [place] 326012-09-04 22:15:00 Test Item Value Reference Range Interpretation Comments eGFR (test code = eGFR) 42 [place] 326012-09-04 22:15:00 Test Item Value Reference Range Interpretation Comments Lactic Acid Lvl (test code = Lactic 4.5 0.5-2.2 Acid Lvl) [place] 326012-09-04 22:15:00 Test Item Value Reference Range Interpretation Comments Glucose Lvl (test code = Glucose Lvl) 135 70-99 [place] 326012-09-04 22:15:00 Test Item Value Reference Range Interpretation Comments BUN (test code = BUN) 46 7-22 [place] 326012-09-04 22:15:00 Test Item Value Reference Range Interpretation Comments Creatinine Lvl (test code = Creatinine 1.56 0.50-1.40 Lvl) [place] 326012-09-04 22:15:00 Test Item Value Reference Range Interpretation Comments Sodium Lvl (test code = Sodium Lvl) 140 135-145 [place] 326012-09-04 22:15:00 Test Item Value Reference Range Interpretation Comments Potassium Lvl (test code = Potassium 5.2 3.5-5.1 Lvl) [facility]2022-09-04 22:15:00 Test Item Value Reference Range Interpretation Comments Chloride Lvl (test code = Chloride Lvl) 110 95-109 [place] 326012-09-04 22:15:00 Test Item Value Reference Range Interpretation Comments CO2 (test code = CO2) 22 24-32 [place] 326012-09-04 22:15:00 Test Item Value Reference Range Interpretation Comments Calcium Lvl (test code = Calcium Lvl) 9.1 8.5-10.5 [facility]2022-09-04 22:15:00 Test Item Value Reference Range Interpretation Comments AGAP (test code = AGAP) 13.2 10.0-20.0 [place] 326012-09-04 22:15:00 Test Item Value Reference Range Interpretation Comments eGFR (test code = eGFR) 42 [place] 326012-09-04 22:15:00 Test Item Value Reference Range Interpretation Comments Lactic Acid Lvl (test code = Lactic 4.5 0.5-2.2 Acid Lvl) [facility]2022-09-04 22:15:00 Test Item Value Reference Range Interpretation Comments Glucose Lvl (test code = Glucose Lvl) 135 70-99 [place] 326012-09-04 22:15:00 Test Item Value Reference Range Interpretation Comments BUN (test code = BUN) 46 7-22 [place] 326012-09-04 22:15:00 Test Item Value Reference Range Interpretation Comments Creatinine Lvl (test code = Creatinine 1.56 0.50-1.40 Lvl) [place] 326012-09-04 22:15:00 Test Item Value Reference Range Interpretation Comments Sodium Lvl (test code = Sodium Lvl) 140 135-145 [place] 326012-09-04 22:15:00 Test Item Value Reference Range Interpretation Comments Potassium Lvl (test code = Potassium 5.2 3.5-5.1 Lvl) [place] 326012-09-04 22:15:00 Test Item Value Reference Range Interpretation Comments Chloride Lvl (test code = Chloride Lvl) 110 95-109 [place] 326012-09-04 22:15:00 Test Item Value Reference Range Interpretation Comments CO2 (test code = CO2) [place] 326012-09-04 22:15:00 Test Item Value Reference Range Interpretation Comments Calcium Lvl (test code = Calcium Lvl) 9.1 8.5-10.5 [place] 326012-09-04 22:15:00 Test Item Value Reference Range Interpretation Comments AGAP (test code = AGAP) 13.2 10.0-20.0 [place] 326012-09-04 22:15:00 Test Item Value Reference Range Interpretation Comments eGFR (test code = eGFR) 42 [facility]2022-09-04 22:15:00 Test Item Value Reference Range Interpretation Comments Lactic Acid Lvl (test code = Lactic 4.5 0.5-2.2 Acid Lvl) [facility]2022-09-04 22:15:00 Test Item Value Reference Range Interpretation Comments Glucose Lvl (test code = Glucose Lvl) 135 70-99 [place] 326012-09-04 22:15:00 Test Item Value Reference Range Interpretation Comments BUN (test code = BUN) 46 7-22 [facility]2022-09-04 22:15:00 Test Item Value Reference Range Interpretation Comments Creatinine Lvl (test code = Creatinine 1.56 0.50-1.40 Lvl) [facility]2022-09-04 22:15:00 Test Item Value Reference Range Interpretation Comments Sodium Lvl (test code = Sodium Lvl) 140 135-145 [place] 326012-09-04 22:15:00 Test Item Value Reference Range Interpretation Comments Potassium Lvl (test code = Potassium 5.2 3.5-5.1 Lvl) [place] 326012-09-04 22:15:00 Test Item Value Reference Range Interpretation Comments Chloride Lvl (test code = Chloride Lvl) 110 95-109 [place] 326012-09-04 22:15:00 Test Item Value Reference Range Interpretation Comments CO2 (test code = CO2) [place] 326012-09-04 22:15:00 Test Item Value Reference Range Interpretation Comments Calcium Lvl (test code = Calcium Lvl) 9.1 8.5-10.5 [place] 326012-09-04 22:15:00 Test Item Value Reference Range Interpretation Comments AGAP (test code = AGAP) 13.2 10.0-20.0 [place] 326012-09-04 22:15:00 Test Item Value Reference Range Interpretation Comments eGFR (test code = eGFR) 42 [place] 326012-09-04 22:15:00 Test Item Value Reference Range Interpretation Comments Lactic Acid Lvl (test code = Lactic 4.5 0.5-2.2 Acid Lvl) [place] 326012-09-04 22:15:00 Test Item Value Reference Range Interpretation Comments Glucose Lvl (test code = Glucose Lvl) 135 70-99 [place] 326012-09-04 22:15:00 Test Item Value Reference Range Interpretation Comments BUN (test code = BUN) 46 7-22 [place] 326012-09-04 22:15:00 Test Item Value Reference Range Interpretation Comments Creatinine Lvl (test code = Creatinine 1.56 0.50-1.40 Lvl) [place] 326012-09-04 22:15:00 Test Item Value Reference Range Interpretation Comments Sodium Lvl (test code = Sodium Lvl) 140 135-145 [place] 326012-09-04 22:15:00 Test Item Value Reference Range Interpretation Comments Potassium Lvl (test code = Potassium 5.2 3.5-5.1 Lvl) [place] 326012-09-04 22:15:00 Test Item Value Reference Range Interpretation Comments Chloride Lvl (test code = Chloride Lvl) 110 95-109 [place] 326012-09-04 22:15:00 Test Item Value Reference Range Interpretation Comments CO2 (test code = CO2) 22 24-32 [place] 326012-09-04 22:15:00 Test Item Value Reference Range Interpretation Comments Calcium Lvl (test code = Calcium Lvl) 9.1 8.5-10.5 [place] 326012-09-04 22:15:00 Test Item Value Reference Range Interpretation Comments AGAP (test code = AGAP) 13.2 10.0-20.0 [facility]2022-09-04 22:15:00 Test Item Value Reference Range Interpretation Comments eGFR (test code = eGFR) 42 [facility] [id number] 18:00:00 Test Item Value Reference Range Interpretation Comments HS Troponin I (test code = HS Troponin 7 I) [facility]2022-09-04 18:00:00 Test Item Value Reference Range Interpretation Comments Glucose Lvl (test code = Glucose Lvl) 128 70-99 [facility]2022-09-04 18:00:00 Test Item Value Reference Range Interpretation Comments BUN (test code = BUN) 43 7-22 [facility]2022-09-04 18:00:00 Test Item Value Reference Range Interpretation Comments Creatinine Lvl (test code = Creatinine 1.56 0.50-1.40 Lvl) [facility]2022-09-04 18:00:00 Test Item Value Reference Range Interpretation Comments Sodium Lvl (test code = Sodium Lvl) 139 135-145 [facility]2022-09-04 18:00:00 Test Item Value Reference Range Interpretation Comments Potassium Lvl (test code = Potassium 4.8 3.5-5.1 Lvl) [facility]2022-09-04 18:00:00 Test Item Value Reference Range Interpretation Comments Chloride Lvl (test code = Chloride Lvl) 109 95-109 [facility]2022-09-04 18:00:00 Test Item Value Reference Range Interpretation Comments CO2 (test code = CO2) 23 24-32 [facility]2022-09-04 18:00:00 Test Item Value Reference Range Interpretation Comments Calcium Lvl (test code = Calcium Lvl) 8.8 8.5-10.5 [facility]2022-09-04 18:00:00 Test Item Value Reference Range Interpretation Comments AGAP (test code = AGAP) 11.8 10.0-20.0 [facility]2022-09-04 18:00:00 Test Item Value Reference Range Interpretation Comments eGFR (test code = eGFR) 42 [facility]2022-09-04 18:00:00 Test Item Value Reference Range Interpretation Comments Magnesium Lvl (test code = Magnesium 2.0 1.8-2.4 Lvl) [facility]2022-09-04 18:00:00 Test Item Value Reference Range Interpretation Comments Phosphorus (test code = Phosphorus) 3.3 2.5-4.5 [facility]2022-09-04 18:00:00 Test Item Value Reference Range Interpretation Comments Lactic Acid Lvl (test code = Lactic 7.6 0.5-2.2 Acid Lvl) [id number] 18:00:00 Test Item Value Reference Range Interpretation Comments WBC (test code = WBC) 21.4 3.7-10.4 [facility]CdewdfaFWRJUMCOQZ5380-53-18 18:00:00 Test Item Value Reference Range Interpretation Comments RBC (test code = RBC) 2.55 4.70-6.10 [place] 765532-09-04 18:00:00 Test Item Value Reference Range Interpretation Comments Hgb (test code = Hgb) 9.2 14.0-18.0 [place] [address]-09-04 18:00:00 Test Item Value Reference Range Interpretation Comments Hct (test code = Hct) 27.7 42.0-54.0 [place] [address]-09-04 18:00:00 Test Item Value Reference Range Interpretation Comments MCV (test code = MCV) 108.6 80.0-94.0 [facility]UffekvaGZBDUDYKNA8839-25-68 18:00:00 Test Item Value Reference Range Interpretation Comments MCH (test code = MCH) 36.1 pg 27.0-31.0 [facility]ByyxiluMCTPLGUJQY5860-42-84 18:00:00 Test Item Value Reference Range Interpretation Comments MCHC (test code = MCHC) 33.3 32.0-36.0 [place] [address]-09-04 18:00:00 Test Item Value Reference Range Interpretation Comments RDW (test code = RDW) 13.2 11.5-14.5 [place] 765532-09-04 18:00:00 Test Item Value Reference Range Interpretation Comments Platelet (test code = Platelet) 195 133-450 [facility] HospitalHrndycqSMFZHAWTWX7109-72-81 18:00:00 Test Item Value Reference Range Interpretation Comments MPV (test code = MPV) 7.8 7.4-10.4 [facility] [id number] 18:00:00 Test Item Value Reference Range Interpretation Comments HS Troponin I (test code = HS Troponin 7 I) [facility]2022-09-04 18:00:00 Test Item Value Reference Range Interpretation Comments Glucose Lvl (test code = Glucose Lvl) 128 70-99 [facility]2022-09-04 18:00:00 Test Item Value Reference Range Interpretation Comments BUN (test code = BUN) 43 7-22 [facility]2022-09-04 18:00:00 Test Item Value Reference Range Interpretation Comments Creatinine Lvl (test code = Creatinine 1.56 0.50-1.40 Lvl) [facility]2022-09-04 18:00:00 Test Item Value Reference Range Interpretation Comments Sodium Lvl (test code = Sodium Lvl) 139 135-145 [facility]2022-09-04 18:00:00 Test Item Value Reference Range Interpretation Comments Potassium Lvl (test code = Potassium 4.8 3.5-5.1 Lvl) [facility]2022-09-04 18:00:00 Test Item Value Reference Range Interpretation Comments Chloride Lvl (test code = Chloride Lvl) 109 95-109 [facility]2022-09-04 18:00:00 Test Item Value Reference Range Interpretation Comments CO2 (test code = CO2) 23 24-32 [facility]2022-09-04 18:00:00 Test Item Value Reference Range Interpretation Comments Calcium Lvl (test code = Calcium Lvl) 8.8 8.5-10.5 [facility]2022-09-04 18:00:00 Test Item Value Reference Range Interpretation Comments AGAP (test code = AGAP) 11.8 10.0-20.0 [facility]2022-09-04 18:00:00 Test Item Value Reference Range Interpretation Comments eGFR (test code = eGFR) 42 [facility]2022-09-04 18:00:00 Test Item Value Reference Range Interpretation Comments Magnesium Lvl (test code = Magnesium 2.0 1.8-2.4 Lvl) [facility]2022-09-04 18:00:00 Test Item Value Reference Range Interpretation Comments Phosphorus (test code = Phosphorus) 3.3 2.5-4.5 [facility] [id number] 18:00:00 Test Item Value Reference Range Interpretation Comments Lactic Acid Lvl (test code = Lactic 7.6 0.5-2.2 Acid Lvl) [facility]71[facility] 18:00:00 Test Item Value Reference Range Interpretation Comments WBC (test code = WBC) 21.4 3.7-10.4 [facility]PvchzjuWZFJNFTGWF5098-90-47 18:00:00 Test Item Value Reference Range Interpretation Comments RBC (test code = RBC) 2.55 4.70-6.10 [facility]NhfjmhxGJXBPOFHES0337-76-73 18:00:00 Test Item Value Reference Range Interpretation Comments Hgb (test code = Hgb) 9.2 14.0-18.0 [facility]QbubixcIXQLTVTLQI7467-07-51 18:00:00 Test Item Value Reference Range Interpretation Comments Hct (test code = Hct) 27.7 42.0-54.0 [facility] HospitalHxvyzlaILZUSUUGWW8187-65-64 18:00:00 Test Item Value Reference Range Interpretation Comments MCV (test code = MCV) 108.6 80.0-94.0 [facility]UhqaxlrKFVDRXDNWC2108-18-73 18:00:00 Test Item Value Reference Range Interpretation Comments MCH (test code = MCH) 36.1 pg 27.0-31.0 [facility] HospitalSvqfyfcUKNXLIPJMU0785-76-95 18:00:00 Test Item Value Reference Range Interpretation Comments MCHC (test code = MCHC) 33.3 32.0-36.0 [facility] HospitalOarqswkIHJLJHAIIV8608-23-77 18:00:00 Test Item Value Reference Range Interpretation Comments RDW (test code = RDW) 13.2 11.5-14.5 [facility] HospitalCzykcvrVVQWXAJFJU7468-78-05 18:00:00 Test Item Value Reference Range Interpretation Comments Platelet (test code = Platelet) 195 133-450 [facility] HospitalZjgkgwjBFKTDBZDXN7691-76-60 18:00:00 Test Item Value Reference Range Interpretation Comments MPV (test code = MPV) 7.8 7.4-10.4 [facility] [id number] 18:00:00 Test Item Value Reference Range Interpretation Comments HS Troponin I (test code = HS Troponin 7 I) [facility]2022-09-04 18:00:00 Test Item Value Reference Range Interpretation Comments Glucose Lvl (test code = Glucose Lvl) 128 70-99 [place] 326012-09-04 18:00:00 Test Item Value Reference Range Interpretation Comments BUN (test code = BUN) 43 7-22 [place] 326012-09-04 18:00:00 Test Item Value Reference Range Interpretation Comments Creatinine Lvl (test code = Creatinine 1.56 0.50-1.40 Lvl) [facility]2022-09-04 18:00:00 Test Item Value Reference Range Interpretation Comments Sodium Lvl (test code = Sodium Lvl) 139 135-145 [place] 326012-09-04 18:00:00 Test Item Value Reference Range Interpretation Comments Potassium Lvl (test code = Potassium 4.8 3.5-5.1 Lvl) [facility]2022-09-04 18:00:00 Test Item Value Reference Range Interpretation Comments Chloride Lvl (test code = Chloride Lvl) 109 95-109 [facility]2022-09-04 18:00:00 Test Item Value Reference Range Interpretation Comments CO2 (test code = CO2) 23 24-32 [place] 326012-09-04 18:00:00 Test Item Value Reference Range Interpretation Comments Calcium Lvl (test code = Calcium Lvl) 8.8 8.5-10.5 [facility]2022-09-04 18:00:00 Test Item Value Reference Range Interpretation Comments AGAP (test code = AGAP) 11.8 10.0-20.0 [facility]2022-09-04 18:00:00 Test Item Value Reference Range Interpretation Comments eGFR (test code = eGFR) 42 [place] 326012-09-04 18:00:00 Test Item Value Reference Range Interpretation Comments Magnesium Lvl (test code = Magnesium 2.0 1.8-2.4 Lvl) [facility]2022-09-04 18:00:00 Test Item Value Reference Range Interpretation Comments Phosphorus (test code = Phosphorus) 3.3 2.5-4.5 [place] 326012-09-04 18:00:00 Test Item Value Reference Range Interpretation Comments Lactic Acid Lvl (test code = Lactic 7.6 0.5-2.2 Acid Lvl) [facility] HospitalThvbqaxSVVYLIVTKI2559-75-41 18:00:00 Test Item Value Reference Range Interpretation Comments WBC (test code = WBC) 21.4 3.7-10.4 [facility] HospitalEiegyhrTCLDTKQEQJ9832-45-72 18:00:00 Test Item Value Reference Range Interpretation Comments RBC (test code = RBC) 2.55 4.70-6.10 [facility] Hos[id number] 18:00:00 Test Item Value Reference Range Interpretation Comments Hgb (test code = Hgb) 9.2 14.0-18.0 [facility] HospitalOpcnnzfPTODBVOQPF7751-27-23 18:00:00 Test Item Value Reference Range Interpretation Comments Hct (test code = Hct) 27.7 42.0-54.0 [facility] HospitalAynsfmxRFDTNNAKWA1222-13-29 18:00:00 Test Item Value Reference Range Interpretation Comments MCV (test code = MCV) 108.6 80.0-94.0 [facility] HospitalCaedsukCDVCTRRBBN7341-80-97 18:00:00 Test Item Value Reference Range Interpretation Comments MCH (test code = MCH) 36.1 pg 27.0-31.0 [facility] HospitalEoswyloIAILDJBLTD7763-85-94 18:00:00 Test Item Value Reference Range Interpretation Comments MCHC (test code = MCHC) 33.3 32.0-36.0 [facility] H[id number] 18:00:00 Test Item Value Reference Range Interpretation Comments RDW (test code = RDW) 13.2 11.5-14.5 [facility] HospitalRdfpdzuCHGFRNKQOM7283-43-25 18:00:00 Test Item Value Reference Range Interpretation Comments Platelet (test code = Platelet) 195 133-450 [facility] HospitalLexvjcxTQOAEIUIAV2028-00-38 18:00:00 Test Item Value Reference Range Interpretation Comments MPV (test code = MPV) 7.8 7.4-10.4 [facility] [id number] 18:00:00 Test Item Value Reference Range Interpretation Comments HS Troponin I (test code = HS Troponin 7 I) [facility] [id number] 18:00:00 Test Item Value Reference Range Interpretation Comments Glucose Lvl (test code = Glucose Lvl) 128 70-99 [facility]2022-09-04 18:00:00 Test Item Value Reference Range Interpretation Comments BUN (test code = BUN) 43 7-22 [facility]2022-09-04 18:00:00 Test Item Value Reference Range Interpretation Comments Creatinine Lvl (test code = Creatinine 1.56 0.50-1.40 Lvl) [facility]2022-09-04 18:00:00 Test Item Value Reference Range Interpretation Comments Sodium Lvl (test code = Sodium Lvl) 139 135-145 [facility]2022-09-04 18:00:00 Test Item Value Reference Range Interpretation Comments Potassium Lvl (test code = Potassium 4.8 3.5-5.1 Lvl) [facility]2022-09-04 18:00:00 Test Item Value Reference Range Interpretation Comments Chloride Lvl (test code = Chloride Lvl) 109 95-109 [facility]2022-09-04 18:00:00 Test Item Value Reference Range Interpretation Comments CO2 (test code = CO2) 23 24-32 [facility]2022-09-04 18:00:00 Test Item Value Reference Range Interpretation Comments Calcium Lvl (test code = Calcium Lvl) 8.8 8.5-10.5 [facility]2022-09-04 18:00:00 Test Item Value Reference Range Interpretation Comments AGAP (test code = AGAP) 11.8 10.0-20.0 [facility]2022-09-04 18:00:00 Test Item Value Reference Range Interpretation Comments eGFR (test code = eGFR) 42 [facility]2022-09-04 18:00:00 Test Item Value Reference Range Interpretation Comments Magnesium Lvl (test code = Magnesium 2.0 1.8-2.4 Lvl) [facility]2022-09-04 18:00:00 Test Item Value Reference Range Interpretation Comments Phosphorus (test code = Phosphorus) 3.3 2.5-4.5 [facility]2022-09-04 18:00:00 Test Item Value Reference Range Interpretation Comments Lactic Acid Lvl (test code = Lactic 7.6 0.5-2.2 Acid Lvl) [facility]uxqSPDTSINSTX6722[facility]-40 18:00:00 Test Item Value Reference Range Interpretation Comments WBC (test code = WBC) 21.4 3.7-10.4 [facility] HospitalSfptbmvMSZHNRNDRW8440-94-78 18:00:00 Test Item Value Reference Range Interpretation Comments RBC (test code = RBC) 2.55 4.70-6.10 [facility] HospitalAidhnakGYVGVASTQZ9783-88-09 18:00:00 Test Item Value Reference Range Interpretation Comments Hgb (test code = Hgb) 9.2 14.0-18.0 [facility] HospitalDyruaynPZRWWHVSLO5102-28-44 18:00:00 Test Item Value Reference Range Interpretation Comments Hct (test code = Hct) 27.7 42.0-54.0 [facility] HospitalRsamxhzRTYUFIGJCD4042-20-52 18:00:00 Test Item Value Reference Range Interpretation Comments MCV (test code = MCV) 108.6 80.0-94.0 [facility] HospitalPiivwozSYEDCJVEST3729-91-30 18:00:00 Test Item Value Reference Range Interpretation Comments MCH (test code = MCH) 36.1 pg 27.0-31.0 [facility] HospitalDsuwcacNAXGBUEYJJ4638-31-79 18:00:00 Test Item Value Reference Range Interpretation Comments MCHC (test code = MCHC) 33.3 32.0-36.0 [facility] HospitalKcxlomaZLTGJHEZKC6300-80-90 18:00:00 Test Item Value Reference Range Interpretation Comments RDW (test code = RDW) 13.2 11.5-14.5 [facility] HospitalFireaxdEOUTYQKZCA6845-10-65 18:00:00 Test Item Value Reference Range Interpretation Comments Platelet (test code = Platelet) 195 133-450 [facility] HospitalNsptdslNCAPOBRYDY2538-99-83 18:00:00 Test Item Value Reference Range Interpretation Comments MPV (test code = MPV) 7.8 7.4-10.4 [facility] UEFPXVK5111-18-63 18:00:00 Test Item Value Reference Range Interpretation Comments HS Troponin I (test code = HS Troponin 7 I) [facility] [id number] 18:00:00 Test Item Value Reference Range Interpretation Comments Glucose Lvl (test code = Glucose Lvl) 128 70-99 [facility] QGFUM5409-28-08 18:00:00 Test Item Value Reference Range Interpretation Comments BUN (test code = BUN) 43 7-22 [facility] [id number] 18:00:00 Test Item Value Reference Range Interpretation Comments Creatinine Lvl (test code = Creatinine 1.56 0.50-1.40 Lvl) [place]012-09-04 18:00:00 Test Item Value Reference Range Interpretation Comments Sodium Lvl (test code = Sodium Lvl) 139 135-145 [place] 326012-09-04 18:00:00 Test Item Value Reference Range Interpretation Comments Potassium Lvl (test code = Potassium 4.8 3.5-5.1 Lvl) [place] 326012-09-04 18:00:00 Test Item Value Reference Range Interpretation Comments Chloride Lvl (test code = Chloride Lvl) 109 95-109 [place] 326012-09-04 18:00:00 Test Item Value Reference Range Interpretation Comments CO2 (test code = CO2) 23 24-32 [place] 326012-09-04 18:00:00 Test Item Value Reference Range Interpretation Comments Calcium Lvl (test code = Calcium Lvl) 8.8 8.5-10.5 [place] 326012-09-04 18:00:00 Test Item Value Reference Range Interpretation Comments AGAP (test code = AGAP) 11.8 10.0-20.0 [place] 326012-09-04 18:00:00 Test Item Value Reference Range Interpretation Comments eGFR (test code = eGFR) 42 [facility]2022-09-04 18:00:00 Test Item Value Reference Range Interpretation Comments Magnesium Lvl (test code = Magnesium 2.0 1.8-2.4 Lvl) [facility]2022-09-04 18:00:00 Test Item Value Reference Range Interpretation Comments Phosphorus (test code = Phosphorus) 3.3 2.5-4.5 [place] 326012-09-04 18:00:00 Test Item Value Reference Range Interpretation Comments Lactic Acid Lvl (test code = Lactic 7.6 0.5-2.2 Acid Lvl) [place] 765532-09-04 18:00:00 Test Item Value Reference Range Interpretation Comments WBC (test code = WBC) 21.4 3.7-10.4 [place] 765532-09-04 18:00:00 Test Item Value Reference Range Interpretation Comments RBC (test code = RBC) 2.55 4.70-6.10 [place] 765532-09-04 18:00:00 Test Item Value Reference Range Interpretation Comments Hgb (test code = Hgb) 9.2 14.0-18.0 [place] 765532-09-04 18:00:00 Test Item Value Reference Range Interpretation Comments Hct (test code = Hct) 27.7 42.0-54.0 [place] 765532-09-04 18:00:00 Test Item Value Reference Range Interpretation Comments MCV (test code = MCV) 108.6 80.0-94.0 [place] 765532-09-04 18:00:00 Test Item Value Reference Range Interpretation Comments MCH (test code = MCH) 36.1 pg 27.0-31.0 [place] 765532-09-04 18:00:00 Test Item Value Reference Range Interpretation Comments MCHC (test code = MCHC) 33.3 32.0-36.0 [place] 765532-09-04 18:00:00 Test Item Value Reference Range Interpretation Comments RDW (test code = RDW) 13.2 11.5-14.5 [facility]LbsakufGAYRPEXYFO8184-91-28 18:00:00 Test Item Value Reference Range Interpretation Comments Platelet (test code = Platelet) 195 133-450 [facility] HospitalVvenpenBHPJYQREVR1411-69-50 18:00:00 Test Item Value Reference Range Interpretation Comments MPV (test code = MPV) 7.8 7.4-10.4 [facility]2022-09-04 05:02:00 Test Item Value Reference Range Interpretation Comments Glucose Lvl (test code = Glucose Lvl) 124 70-99 [facility]2022-09-04 05:02:00 Test Item Value Reference Range Interpretation Comments BUN (test code = BUN) 43 7-22 [place] 326012-09-04 05:02:00 Test Item Value Reference Range Interpretation Comments Creatinine Lvl (test code = Creatinine 1.67 0.50-1.40 Lvl) [facility]2022-09-04 05:02:00 Test Item Value Reference Range Interpretation Comments Sodium Lvl (test code = Sodium Lvl) 140 135-145 [place] 326012-09-04 05:02:00 Test Item Value Reference Range Interpretation Comments Potassium Lvl (test code = Potassium 5.0 3.5-5.1 Lvl) [facility]2022-09-04 05:02:00 Test Item Value Reference Range Interpretation Comments Chloride Lvl (test code = Chloride Lvl) 111 95-109 [place] 326012-09-04 05:02:00 Test Item Value Reference Range Interpretation Comments CO2 (test code = CO2) 24 24-32 [facility]2022-09-04 05:02:00 Test Item Value Reference Range Interpretation Comments Calcium Lvl (test code = Calcium Lvl) 8.2 8.5-10.5 [facility]2022-09-04 05:02:00 Test Item Value Reference Range Interpretation Comments AGAP (test code = AGAP) 10.0 10.0-20.0 [facility]2022-09-04 05:02:00 Test Item Value Reference Range Interpretation Comments eGFR (test code = eGFR) 39 [facility] HospitalEjxozgaOGKWIFPTVA6463-41-53 05:02:00 Test Item Value Reference Range Interpretation Comments WBC (test code = WBC) 17.6 3.7-10.4 [place] 765532-09-04 05:02:00 Test Item Value Reference Range Interpretation Comments RBC (test code = RBC) 2.70 4.70-6.10 [facility] HospitalEmrsybmHKTOEHTRHK3774-66-96 05:02:00 Test Item Value Reference Range Interpretation Comments Hgb (test code = Hgb) 9.8 14.0-18.0 [place] 765532-09-04 05:02:00 Test Item Value Reference Range Interpretation Comments Hct (test code = Hct) 29.0 42.0-54.0 [place] 765532-09-04 05:02:00 Test Item Value Reference Range Interpretation Comments MCV (test code = MCV) 107.5 80.0-94.0 [place] 765532-09-04 05:02:00 Test Item Value Reference Range Interpretation Comments MCH (test code = MCH) 36.4 pg 27.0-31.0 [place] 765532-09-04 05:02:00 Test Item Value Reference Range Interpretation Comments MCHC (test code = MCHC) 33.9 32.0-36.0 [place] 765532-09-04 05:02:00 Test Item Value Reference Range Interpretation Comments RDW (test code = RDW) 13.0 11.5-14.5 [place] 765532-09-04 05:02:00 Test Item Value Reference Range Interpretation Comments Platelet (test code = Platelet) 176 133-450 [facility] HospitalGnsipwfYCOLCXWJRS9096-56-37 05:02:00 Test Item Value Reference Range Interpretation Comments MPV (test code = MPV) 7.6 7.4-10.4 [facility] HospitalByclflqJOEAOFYTJT2623-05-00 05:02:00 Test Item Value Reference Range Interpretation Comments Segs (test code = Segs) 91.5 45.0-75.0 [place] 765532-09-04 05:02:00 Test Item Value Reference Range Interpretation Comments Lymphocytes (test code = Lymphocytes) 2.5 20.0-40.0 [facility] HospitalWniuxonZHKNDCRXWT6152-37-90 05:02:00 Test Item Value Reference Range Interpretation Comments Monocytes (test code = Monocytes) 5.8 2.0-12.0 [place] 765532-09-04 05:02:00 Test Item Value Reference Range Interpretation Comments Basophils (test code = 0.2 See_Comment [Aut omated message] The Basophils) system which ge nerated this result tra nsmitted reference range : <=1.0. The reference r mirela was not used to int erpret this result as normal/abnormal . [facility] HospitalEwhlubfIIFRTMQOLN9338-96-26 05:02:00 Test Item Value Reference Range Interpretation Comments Neutrophils # (test code = Neutrophils 16.1 1.5-8.1 #) [facility] HospitalXcnwzlzLAUQULHVHH4976-26-87 05:02:00 Test Item Value Reference Range Interpretation Comments Lymphocytes # (test code = Lymphocytes 0.4 1.0-5.5 #) [place] [address]-09-04 05:02:00 Test Item Value Reference Range Interpretation Comments Monocytes # (test code 1.0 See_Comment [Aut omated message] The = Monocytes #) system which generated this result tra nsmitted reference range : <=0.8. The reference r mirela was not used to int erpret this result as normal/abnormal . [place] [address]-09-04 05:02:00 Test Item Value Reference Range Interpretation Comments Macrocyte (test code = 2+ *ABN*(06/19/22 Macrocyte) 12:02 AM) [facility]2022-09-04 05:02:00 Test Item Value Reference Range Interpretation Comments Glucose Lvl (test code = Glucose Lvl) 124 70-99 [place] 326012-09-04 05:02:00 Test Item Value Reference Range Interpretation Comments BUN (test code = BUN) 43 7-22 [place] 326012-09-04 05:02:00 Test Item Value Reference Range Interpretation Comments Creatinine Lvl (test code = Creatinine 1.67 0.50-1.40 Lvl) [facility]2022-09-04 05:02:00 Test Item Value Reference Range Interpretation Comments Sodium Lvl (test code = Sodium Lvl) 140 135-145 [place] 326012-09-04 05:02:00 Test Item Value Reference Range Interpretation Comments Potassium Lvl (test code = Potassium 5.0 3.5-5.1 Lvl) [facility]2022-09-04 05:02:00 Test Item Value Reference Range Interpretation Comments Chloride Lvl (test code = Chloride Lvl) 111 95-109 [facility]2022-09-04 05:02:00 Test Item Value Reference Range Interpretation Comments CO2 (test code = CO2) 24 24-32 [place] 326012-09-04 05:02:00 Test Item Value Reference Range Interpretation Comments Calcium Lvl (test code = Calcium Lvl) 8.2 8.5-10.5 [place] 326012-09-04 05:02:00 Test Item Value Reference Range Interpretation Comments AGAP (test code = AGAP) 10.0 10.0-20.0 [place] 326012-09-04 05:02:00 Test Item Value Reference Range Interpretation Comments eGFR (test code = eGFR) 39 [facility] HospitalHgvtuomUDQSCUSVQT6176-14-53 05:02:00 Test Item Value Reference Range Interpretation Comments WBC (test code = WBC) 17.6 3.7-10.4 [place] 765532-09-04 05:02:00 Test Item Value Reference Range Interpretation Comments RBC (test code = RBC) 2.70 4.70-6.10 [facility] HospitalDcpjuozXGYJLYLINE3025-16-29 05:02:00 Test Item Value Reference Range Interpretation Comments Hgb (test code = Hgb) 9.8 14.0-18.0 [facility] HospitalJubskgkIRQTNQAWSL9980-23-01 05:02:00 Test Item Value Reference Range Interpretation Comments Hct (test code = Hct) 29.0 42.0-54.0 [facility] HospitalNqidtczHYXBCVNWJQ6023-34-20 05:02:00 Test Item Value Reference Range Interpretation Comments MCV (test code = MCV) 107.5 80.0-94.0 [facility] HospitalWbpbzmsTTROELMVUX7821-96-31 05:02:00 Test Item Value Reference Range Interpretation Comments MCH (test code = MCH) 36.4 pg 27.0-31.0 [facility] HospitalJgvvrhhMIRLPSKRSM6616-73-78 05:02:00 Test Item Value Reference Range Interpretation Comments MCHC (test code = MCHC) 33.9 32.0-36.0 [facility] HospitalCzmxyrsFDSRNEPYMI6076-37-91 05:02:00 Test Item Value Reference Range Interpretation Comments RDW (test code = RDW) 13.0 11.5-14.5 [facility] HospitalOqyjdgdJQTOKOQIZI1528-56-97 05:02:00 Test Item Value Reference Range Interpretation Comments Platelet (test code = Platelet) 176 133-450 [facility] HospitalFvhiaiqNYLHUZPVWH8921-14-42 05:02:00 Test Item Value Reference Range Interpretation Comments MPV (test code = MPV) 7.6 7.4-10.4 [facility] HospitalWepkzscOFADCSZQVO1197-72-41 05:02:00 Test Item Value Reference Range Interpretation Comments Segs (test code = Segs) 91.5 45.0-75.0 [facility] HospitalDmnqmcfLSKJTXUHMX6192-25-46 05:02:00 Test Item Value Reference Range Interpretation Comments Lymphocytes (test code = Lymphocytes) 2.5 20.0-40.0 [facility] HospitalOdkvwbkFAZAXLPLSG1179-32-85 05:02:00 Test Item Value Reference Range Interpretation Comments Monocytes (test code = Monocytes) 5.8 2.0-12.0 [facility] HospitalIpeszeaWNOBGSSTNM7918-83-47 05:02:00 Test Item Value Reference Range Interpretation Comments Basophils (test code = 0.2 See_Comment [Aut omated message] The Basophils) system which ge nerated this result tra nsmitted reference range : <=1.0. The reference r mirela was not used to int erpret this result as normal/abnormal . [place] 765532-09-04 05:02:00 Test Item Value Reference Range Interpretation Comments Neutrophils # (test code = Neutrophils 16.1 1.5-8.1 #) [facility] HospitalVfdeemyVFCPXGYNED1402-45-30 05:02:00 Test Item Value Reference Range Interpretation Comments Lymphocytes # (test code = Lymphocytes 0.4 1.0-5.5 #) [place] 765532-09-04 05:02:00 Test Item Value Reference Range Interpretation Comments Monocytes # (test code 1.0 See_Comment [Aut omated message] The = Monocytes #) system which generated this result tra nsmitted reference range : <=0.8. The reference r mirela was not used to int erpret this result as normal/abnormal . [place] 765532-09-04 05:02:00 Test Item Value Reference Range Interpretation Comments Macrocyte (test code = 2+ *ABN*(06/19/22 Macrocyte) 12:02 AM) [place] 326012-09-04 05:02:00 Test Item Value Reference Range Interpretation Comments Glucose Lvl (test code = Glucose Lvl) 124 70-99 [place] 326012-09-04 05:02:00 Test Item Value Reference Range Interpretation Comments BUN (test code = BUN) 43 7-22 [place] 326012-09-04 05:02:00 Test Item Value Reference Range Interpretation Comments Creatinine Lvl (test code = Creatinine 1.67 0.50-1.40 Lvl) [place] 326012-09-04 05:02:00 Test Item Value Reference Range Interpretation Comments Sodium Lvl (test code = Sodium Lvl) 140 135-145 [place] 326012-09-04 05:02:00 Test Item Value Reference Range Interpretation Comments Potassium Lvl (test code = Potassium 5.0 3.5-5.1 Lvl) [place] 326012-09-04 05:02:00 Test Item Value Reference Range Interpretation Comments Chloride Lvl (test code = Chloride Lvl) 111 95-109 [place] 326012-09-04 05:02:00 Test Item Value Reference Range Interpretation Comments CO2 (test code = CO2) 24 24-32 [facility]2022-09-04 05:02:00 Test Item Value Reference Range Interpretation Comments Calcium Lvl (test code = Calcium Lvl) 8.2 8.5-10.5 [facility]2022-09-04 05:02:00 Test Item Value Reference Range Interpretation Comments AGAP (test code = AGAP) 10.0 10.0-20.0 [facility]2022-09-04 05:02:00 Test Item Value Reference Range Interpretation Comments eGFR (test code = eGFR) 39 [facility] HospitalZljlmleQEEIQEXOFT0098-77-61 05:02:00 Test Item Value Reference Range Interpretation Comments WBC (test code = WBC) 17.6 3.7-10.4 [facility] HospitalXizsfmbGGWGETVIVJ7875-24-54 05:02:00 Test Item Value Reference Range Interpretation Comments RBC (test code = RBC) 2.70 4.70-6.10 [facility] HospitalEhxjlwaZXZTNAQTAN5341-83-16 05:02:00 Test Item Value Reference Range Interpretation Comments Hgb (test code = Hgb) 9.8 14.0-18.0 [facility] HospitalVygqbwiLLMZZJAQOI7709-49-38 05:02:00 Test Item Value Reference Range Interpretation Comments Hct (test code = Hct) 29.0 42.0-54.0 [facility] HospitalWezreqiIAHRIKGMPJ9402-48-45 05:02:00 Test Item Value Reference Range Interpretation Comments MCV (test code = MCV) 107.5 80.0-94.0 [facility] HospitalLovzektPRFKFCYHAH8275-82-50 05:02:00 Test Item Value Reference Range Interpretation Comments MCH (test code = MCH) 36.4 pg 27.0-31.0 [facility] HospitalDsvxyibXFHELEQFAW6225-02-45 05:02:00 Test Item Value Reference Range Interpretation Comments MCHC (test code = MCHC) 33.9 32.0-36.0 [facility] HospitalZaetpyrCHLHGCJPXJ0680-78-31 05:02:00 Test Item Value Reference Range Interpretation Comments RDW (test code = RDW) 13.0 11.5-14.5 [facility] HospitalRhjnnkdXQDEMNESWJ8242-85-26 05:02:00 Test Item Value Reference Range Interpretation Comments Platelet (test code = Platelet) 176 133-450 [facility] HospitalVmhcadoBWZRFNATTE4390-68-91 05:02:00 Test Item Value Reference Range Interpretation Comments MPV (test code = MPV) 7.6 7.4-10.4 [facility] HospitalOndpiegKAGNWWVOQX9182-41-60 05:02:00 Test Item Value Reference Range Interpretation Comments Segs (test code = Segs) 91.5 45.0-75.0 [facility] HospitalYjeeyjyPUFEOIJTCT9174-36-41 05:02:00 Test Item Value Reference Range Interpretation Comments Lymphocytes (test code = Lymphocytes) 2.5 20.0-40.0 [facility] HospitalPlfyzshXYUPSPMMRJ1049-19-98 05:02:00 Test Item Value Reference Range Interpretation Comments Monocytes (test code = Monocytes) 5.8 2.0-12.0 [facility] HospitalMvqiwziIHDRWYYRZX1806-03-71 05:02:00 Test Item Value Reference Range Interpretation Comments Basophils (test code = 0.2 See_Comment [Aut omated message] The Basophils) system which ge nerated this result tra nsmitted reference range : <=1.0. The reference r mirela was not used to int erpret this result as normal/abnormal . [facility] HospitalUgdxgjxKIGQERNDPH2043-92-29 05:02:00 Test Item Value Reference Range Interpretation Comments Neutrophils # (test code = Neutrophils 16.1 1.5-8.1 #) [facility] HospitalUocqiyzYJTIIOMXSO5795-15-50 05:02:00 Test Item Value Reference Range Interpretation Comments Lymphocytes # (test code = Lymphocytes 0.4 1.0-5.5 #) [facility] HospitalWyuvcpfBNYBEWWUMX7334-10-35 05:02:00 Test Item Value Reference Range Interpretation Comments Monocytes # (test code 1.0 See_Comment [Aut omated message] The = Monocytes #) system which generated this result tra nsmitted reference range : <=0.8. The reference r mirela was not used to int erpret this result as normal/abnormal . [facility] HospitalMkcgpooLUYRNRONDY2041-70-60 05:02:00 Test Item Value Reference Range Interpretation Comments Macrocyte (test code = 2+ *ABN*(06/19/22 Macrocyte) 12:02 AM) [facility]2022-09-04 05:02:00 Test Item Value Reference Range Interpretation Comments Glucose Lvl (test code = Glucose Lvl) 124 70-99 [facility]2022-09-04 05:02:00 Test Item Value Reference Range Interpretation Comments BUN (test code = BUN) 43 7-22 [place] 326012-09-04 05:02:00 Test Item Value Reference Range Interpretation Comments Creatinine Lvl (test code = Creatinine 1.67 0.50-1.40 Lvl) [place] 326012-09-04 05:02:00 Test Item Value Reference Range Interpretation Comments Sodium Lvl (test code = Sodium Lvl) 140 135-145 [place] 326012-09-04 05:02:00 Test Item Value Reference Range Interpretation Comments Potassium Lvl (test code = Potassium 5.0 3.5-5.1 Lvl) [place] 326012-09-04 05:02:00 Test Item Value Reference Range Interpretation Comments Chloride Lvl (test code = Chloride Lvl) 111 95-109 [place] 326012-09-04 05:02:00 Test Item Value Reference Range Interpretation Comments CO2 (test code = CO2) 24 24-32 [facility]2022-09-04 05:02:00 Test Item Value Reference Range Interpretation Comments Calcium Lvl (test code = Calcium Lvl) 8.2 8.5-10.5 [facility]2022-09-04 05:02:00 Test Item Value Reference Range Interpretation Comments AGAP (test code = AGAP) 10.0 10.0-20.0 [facility]2022-09-04 05:02:00 Test Item Value Reference Range Interpretation Comments eGFR (test code = eGFR) 39 [facility] HospitalEcvdikzMHMCKXDESU2670-41-07 05:02:00 Test Item Value Reference Range Interpretation Comments WBC (test code = WBC) 17.6 3.7-10.4 [place] 765532-09-04 05:02:00 Test Item Value Reference Range Interpretation Comments RBC (test code = RBC) 2.70 4.70-6.10 [place] 765532-09-04 05:02:00 Test Item Value Reference Range Interpretation Comments Hgb (test code = Hgb) 9.8 14.0-18.0 [place] [address]-09-04 05:02:00 Test Item Value Reference Range Interpretation Comments Hct (test code = Hct) 29.0 42.0-54.0 [place] [address]-09-04 05:02:00 Test Item Value Reference Range Interpretation Comments MCV (test code = MCV) 107.5 80.0-94.0 [facility] HospitalJyvcvpbIVRPTAJEYS2564-70-05 05:02:00 Test Item Value Reference Range Interpretation Comments MCH (test code = MCH) 36.4 pg 27.0-31.0 [facility] HospitalCohwegwMYXRYQLHGJ6885-18-75 05:02:00 Test Item Value Reference Range Interpretation Comments MCHC (test code = MCHC) 33.9 32.0-36.0 [facility] HospitalErxjopzLOACVLMVES0684-02-79 05:02:00 Test Item Value Reference Range Interpretation Comments RDW (test code = RDW) 13.0 11.5-14.5 [facility] HospitalEaxzxvzOQBIKIQVRR8016-28-13 05:02:00 Test Item Value Reference Range Interpretation Comments Platelet (test code = Platelet) 176 133-450 [facility] HospitalTkcnfxtVILDIZHTMQ1147-92-48 05:02:00 Test Item Value Reference Range Interpretation Comments MPV (test code = MPV) 7.6 7.4-10.4 [facility] HospitalJrxsdkeOXFIQICBWW1159-27-65 05:02:00 Test Item Value Reference Range Interpretation Comments Segs (test code = Segs) 91.5 45.0-75.0 [facility] HospitalYuxboanFVWNKXMABL9806-95-64 05:02:00 Test Item Value Reference Range Interpretation Comments Lymphocytes (test code = Lymphocytes) 2.5 20.0-40.0 [facility] HospitalUeyohmpABKTKDDCRM5705-22-61 05:02:00 Test Item Value Reference Range Interpretation Comments Monocytes (test code = Monocytes) 5.8 2.0-12.0 [facility] HospitalFturpycDSJGSJDIZN9132-21-70 05:02:00 Test Item Value Reference Range Interpretation Comments Basophils (test code = 0.2 See_Comment [Aut omated message] The Basophils) system which ge nerated this result tra nsmitted reference range : <=1.0. The reference r mirela was not used to int erpret this result as normal/abnormal . [facility] HospitalHwhfcizNGXCNILDSJ5992-36-95 05:02:00 Test Item Value Reference Range Interpretation Comments Neutrophils # (test code = Neutrophils 16.1 1.5-8.1 #) [facility] HospitalEttdawuRBITNITCZP7187-90-15 05:02:00 Test Item Value Reference Range Interpretation Comments Lymphocytes # (test code = Lymphocytes 0.4 1.0-5.5 #) [facility] HospitalZkkpngtNBKBXTTJTT7227-26-74 05:02:00 Test Item Value Reference Range Interpretation Comments Monocytes # (test code 1.0 See_Comment [Aut omated message] The = Monocytes #) system which generated this result tra nsmitted reference range : <=0.8. The reference r mirela was not used to int erpret this result as normal/abnormal . [facility] HospitalGyvntpbIZHCOAYGWV0496-91-79 05:02:00 Test Item Value Reference Range Interpretation Comments Macrocyte (test code = 2+ *ABN*(06/19/22 Macrocyte) 12:02 AM) [facility]2022-09-04 05:02:00 Test Item Value Reference Range Interpretation Comments Glucose Lvl (test code = Glucose Lvl) 124 70-99 [facility]2022-09-04 05:02:00 Test Item Value Reference Range Interpretation Comments BUN (test code = BUN) 43 7-22 [facility]2022-09-04 05:02:00 Test Item Value Reference Range Interpretation Comments Creatinine Lvl (test code = Creatinine 1.67 0.50-1.40 Lvl) [facility]2022-09-04 05:02:00 Test Item Value Reference Range Interpretation Comments Sodium Lvl (test code = Sodium Lvl) 140 135-145 [place] 326012-09-04 05:02:00 Test Item Value Reference Range Interpretation Comments Potassium Lvl (test code = Potassium 5.0 3.5-5.1 Lvl) [facility]2022-09-04 05:02:00 Test Item Value Reference Range Interpretation Comments Chloride Lvl (test code = Chloride Lvl) 111 95-109 [place] 326012-09-04 05:02:00 Test Item Value Reference Range Interpretation Comments CO2 (test code = CO2) 24 24-32 [facility]2022-09-04 05:02:00 Test Item Value Reference Range Interpretation Comments Calcium Lvl (test code = Calcium Lvl) 8.2 8.5-10.5 [place] 326012-09-04 05:02:00 Test Item Value Reference Range Interpretation Comments AGAP (test code = AGAP) 10.0 10.0-20.0 [facility]2022-09-04 05:02:00 Test Item Value Reference Range Interpretation Comments eGFR (test code = eGFR) 39 [facility]hrIXGIYXHFAP5886-22-78 05:02:00 Test Item Value Reference Range Interpretation Comments WBC (test code = WBC) 17.6 3.7-10.4 [facility] HospitalMtcdupkOSFAAHTHDE7336-57-91 05:02:00 Test Item Value Reference Range Interpretation Comments RBC (test code = RBC) 2.70 4.70-6.10 [facility] HospitalVjjqzcyDZNOPVAXBG4659-20-53 05:02:00 Test Item Value Reference Range Interpretation Comments Hgb (test code = Hgb) 9.8 14.0-18.0 [facility] HospitalAdplyqkDEEXFMLTVP7036-26-61 05:02:00 Test Item Value Reference Range Interpretation Comments Hct (test code = Hct) 29.0 42.0-54.0 [facility] HospitalSezzlpwCYOKKUWSQR2170-05-03 05:02:00 Test Item Value Reference Range Interpretation Comments MCV (test code = MCV) 107.5 80.0-94.0 [facility] HospitalZjzbtjkEAADYZTFAE3952-03-67 05:02:00 Test Item Value Reference Range Interpretation Comments MCH (test code = MCH) 36.4 pg 27.0-31.0 [facility] HospitalJipfrruOEWJSZEYFP8738-95-14 05:02:00 Test Item Value Reference Range Interpretation Comments MCHC (test code = MCHC) 33.9 32.0-36.0 [facility] HospitalNzrkmfyALGTCKNMJS7954-91-60 05:02:00 Test Item Value Reference Range Interpretation Comments RDW (test code = RDW) 13.0 11.5-14.5 [facility] HospitalVabtgtwIMUKJKNMMZ6429-15-95 05:02:00 Test Item Value Reference Range Interpretation Comments Platelet (test code = Platelet) 176 133-450 [facility] HospitalRjimoiiIYLHUTZKLA8320-45-36 05:02:00 Test Item Value Reference Range Interpretation Comments MPV (test code = MPV) 7.6 7.4-10.4 [facility] HospitalFkjvmrlBIHPTREYCY0883-99-71 05:02:00 Test Item Value Reference Range Interpretation Comments Segs (test code = Segs) 91.5 45.0-75.0 [facility] HospitalByadhnhDEQUSQHOFC8272-35-19 05:02:00 Test Item Value Reference Range Interpretation Comments Lymphocytes (test code = Lymphocytes) 2.5 20.0-40.0 [facility] HospitalZthkydyPVSTITPGZN6629-87-08 05:02:00 Test Item Value Reference Range Interpretation Comments Monocytes (test code = Monocytes) 5.8 2.0-12.0 [facility] HospitalWbemridIBBGZLDYYN4784-81-68 05:02:00 Test Item Value Reference Range Interpretation Comments Basophils (test code = 0.2 See_Comment [Aut omated message] The Basophils) system which ge nerated this result tra nsmitted reference range : <=1.0. The reference r mirela was not used to int erpret this result as normal/abnormal . [facility] HospitalQoyvvceEHMGCFMGOI4429-06-92 05:02:00 Test Item Value Reference Range Interpretation Comments Neutrophils # (test code = Neutrophils 16.1 1.5-8.1 #) [facility] HospitalVkscrmvMYPMJGLIUP0506-89-80 05:02:00 Test Item Value Reference Range Interpretation Comments Lymphocytes # (test code = Lymphocytes 0.4 1.0-5.5 #) [facility] HospitalMsjuhilSXBXMPCNPY6977-68-84 05:02:00 Test Item Value Reference Range Interpretation Comments Monocytes # (test code 1.0 See_Comment [Aut omated message] The = Monocytes #) system which generated this result tra nsmitted reference range : <=0.8. The reference r mirela was not used to int erpret this result as normal/abnormal . [facility] HospitalLrzevbhRKOHCMNLUY2601-93-28 05:02:00 Test Item Value Reference Range Interpretation Comments Macrocyte (test code = 2+ *ABN*(06/19/22 Macrocyte) 12:02 AM) [facility]orm[facility] [id number] 18:40:00 Test Item Value Reference Range Interpretation Comments HS Troponin I (test code = HS Troponin 10 I) [facility] [id number] 18:40:00 Test Item Value Reference Range Interpretation Comments HS Troponin I (test code = HS Troponin 10 I) [facility] [id number] 18:40:00 Test Item Value Reference Range Interpretation Comments HS Troponin I (test code = HS Troponin 10 I) [facility] [id number] 18:40:00 Test Item Value Reference Range Interpretation Comments HS Troponin I (test code = HS Troponin 10 I) [facility]TelesocialB[facility]ENTERChinaNetCenter [id number] 18:40:00 Test Item Value Reference Range Interpretation Comments HS Troponin I (test code = HS Troponin 10 I) [facility] [employer] [id number] 13:09:00 Test Item Value Reference Range Interpretation Comments ABO/Rh (test code = ABO/Rh) O [facility] [employer] [id number] 13:09:00 Test Item Value Reference Range Interpretation Comments Antibody Scrn (test Negative (06/18/22 8:09 code = Antibody Scrn) AM) [facility] [employer] [id number] 13:09:00 Test Item Value Reference Range Interpretation Comments ABO/Rh (test code = ABO/Rh) O [facility] [employer] [id number] 13:09:00 Test Item Value Reference Range Interpretation Comments Antibody Scrn (test Negative (06/18/22 8:09 code = Antibody Scrn) AM) [facility] HospitalTelesocialThe Dolan Company [id number] 13:09:00 Test Item Value Reference Range Interpretation Comments ABO/Rh (test code = ABO/Rh) O [facility] [employer] [id number] 13:09:00 Test Item Value Reference Range Interpretation Comments Antibody Scrn (test Negative (06/18/22 8:09 code = Antibody Scrn) AM) [facility] HospitalTelesocialThe [facility] [id number] 13:09:00 Test Item Value Reference Range Interpretation Comments ABO/Rh (test code = ABO/Rh) O [facility] [employer] [id number] 13:09:00 Test Item Value Reference Range Interpretation Comments Antibody Scrn (test Negative (06/18/22 8:09 code = Antibody Scrn) AM) [facility] [employer] [id number] 13:09:00 Test Item Value Reference Range Interpretation Comments ABO/Rh (test code = ABO/Rh) O [facility] [employer] [id number] 13:09:00 Test Item Value Reference Range Interpretation Comments Antibody Scrn (test Negative (06/18/22 8:09 code = Antibody Scrn) AM) [facility] Sh[id number] 12:36:00 Test Item Value Reference Range Interpretation Comments Coronavirus (COVID-19) Not Detected (06/18/22 MANASA (test code = 7:36 AM) Coronavirus (COVID-19) MANASA) [facility]UhmkysqKKSQEGOLLL6902-27-83 12:36:00 Test Item Value Reference Range Interpretation Comments Coronavirus (COVID-19) Not Detected (06/18/22 MANASA (test code = 7:36 AM) Coronavirus (COVID-19) AMNASA) [facility] HospitalDvncoqwWNINVAJKFQ7239-05-01 12:36:00 Test Item Value Reference Range Interpretation Comments Coronavirus (COVID-19) Not Detected (06/18/22 MANASA (test code = 7:36 AM) Coronavirus (COVID-19) MANASA) [facility] Hospit[id number] 12:36:00 Test Item Value Reference Range Interpretation Comments Coronavirus (COVID-19) Not Detected (06/18/22 MANASA (test code = 7:36 AM) Coronavirus (COVID-19) MANASA) [facility] H[id number] 12:36:00 Test Item Value Reference Range Interpretation Comments Coronavirus (COVID-19) Not Detected (06/18/22 MANASA (test code = 7:36 AM) Coronavirus (COVID-19) MANASA) [facility]2022-09-03 11:10:00 Test Item Value Reference Range Interpretation Comments UA Sq Epi (test code = UA Sq Occasional /LPF Epi) [facility]2022-09-03 11:10:00 Test Item Value Reference Range Interpretation Comments UA WBC (test code = 1 See_Comment [Automa sivakumar message] The UA WBC) system which ge nerated this result transmit sivakumar reference range : <=5. The reference range was not used to interpr et this result as lida l/abnormal. [facility] AND [id number] 11:10:00 Test Item Value Reference Range Interpretation Comments UA RBC (test code = 1 See_Comment [Automa sivakumar message] The UA RBC) system which ge nerated this result transmit sivakumar reference range : <=2. The reference range was not used to interpr et this result as lida l/abnormal. [facility]2022-09-03 11:10:00 Test Item Value Reference Range Interpretation Comments UA Mucus (test code = UA Mucus) Few /LPF [facility] AND [id number] 11:10:00 Test Item Value Reference Range Interpretation Comments UA Hyal Cast (test 5 See_Comment [Automat ed message] The code = UA Hyal Cast) system which generated this result transmit sivakumar reference range : <=2. The reference range was not used to interpr et this result as lida l/abnormal. [facility] AND [id number] 11:10:00 Test Item Value Reference Range Interpretation Comments UA Color (test code = [place] *ABN*(06/18/22 UA Color) 6:10 AM) [facility] AND [id number] 11:10:00 Test Item Value Reference Range Interpretation Comments UA Turbidity (test code = Clear (06/18/22 6:10 UA Turbidity) AM) [facility] AND [id number] 11:10:00 Test Item Value Reference Range Interpretation Comments UA Spec Grav (test >=1.030 *ABN*(06/18/22 code = UA Spec Grav) 6:10 AM) [facility] AND [id number] 11:10:00 Test Item Value Reference Range Interpretation Comments UA pH (test code = UA pH) 6.0 1 5.0-8.0 [facility] AND [id number] 11:10:00 Test Item Value Reference Range Interpretation Comments UA Protein (test code Negative (06/18/22 6:10 = UA Protein) AM) [facility] AND [id number] 11:10:00 Test Item Value Reference Range Interpretation Comments UA Glucose (test code Negative (06/18/22 6:10 = UA Glucose) AM) [facility] AND [id number] 11:10:00 Test Item Value Reference Range Interpretation Comments UA Ketones (test code = Trace *ABN*(06/18/22 UA Ketones) 6:10 AM) [facility] AND [id number] 11:10:00 Test Item Value Reference Range Interpretation Comments UA Bili (test code = Small *ABN*(06/18/22 6:10 UA Bili) AM) [facility] AND [id number] 11:10:00 Test Item Value Reference Range Interpretation Comments UA Blood (test code = Negative (06/18/22 6:10 UA Blood) AM) [facility] [id number] 11:10:00 Test Item Value Reference Range Interpretation Comments UA Urobilinogen (test code = UA 0.2 0.1-1.0 Urobilinogen) [facility] [id number] 11:10:00 Test Item Value Reference Range Interpretation Comments UA Nitrite (test code Negative (06/18/22 6:10 = UA Nitrite) AM) [facility] AND [id number] 11:10:00 Test Item Value Reference Range Interpretation Comments UA Leuk Est (test Negative (06/18/22 6:10 code = UA Leuk Est) AM) [facility] AND [id number] 11:10:00 Test Item Value Reference Range Interpretation Comments UA Sq Epi (test code = UA Sq Occasional /LPF Epi) [facility] AND [id number] 11:10:00 Test Item Value Reference Range Interpretation Comments UA WBC (test code = 1 See_Comment [Automa sivakumar message] The UA WBC) system which ge nerated this result transmit sivakumar reference range : <=5. The reference range was not used to interpr et this result as lida l/abnormal. [facility] AND [id number] 11:10:00 Test Item Value Reference Range Interpretation Comments UA RBC (test code = 1 See_Comment [Automa sivakumar message] The UA RBC) system which ge nerated this result transmit sivakumar reference range : <=2. The reference range was not used to interpr et this result as lida l/abnormal. [facility] AND [id number] 11:10:00 Test Item Value Reference Range Interpretation Comments UA Mucus (test code = UA Mucus) Few /LPF [facility] AND [id number] 11:10:00 Test Item Value Reference Range Interpretation Comments UA Hyal Cast (test 5 See_Comment [Automat ed message] The code = UA Hyal Cast) system which generated this result transmit sivakumar reference range : <=2. The reference range was not used to interpr et this result as lida l/abnormal. [facility] AND [id number] 11:10:00 Test Item Value Reference Range Interpretation Comments UA Color (test code = [place] *ABN*(06/18/22 UA Color) 6:10 AM) [facility] AND [id number] 11:10:00 Test Item Value Reference Range Interpretation Comments UA Turbidity (test code = Clear (06/18/22 6:10 UA Turbidity) AM) [facility] AND [id number] 11:10:00 Test Item Value Reference Range Interpretation Comments UA Spec Grav (test >=1.030 *ABN*(06/18/22 code = UA Spec Grav) 6:10 AM) [facility] AND [id number] 11:10:00 Test Item Value Reference Range Interpretation Comments UA pH (test code = UA pH) 6.0 1 5.0-8.0 [facility] AND [id number] 11:10:00 Test Item Value Reference Range Interpretation Comments UA Protein (test code Negative (06/18/22 6:10 = UA Protein) AM) [facility] AND [id number] 11:10:00 Test Item Value Reference Range Interpretation Comments UA Glucose (test code Negative (06/18/22 6:10 = UA Glucose) AM) [facility] AND [id number] 11:10:00 Test Item Value Reference Range Interpretation Comments UA Ketones (test code = Trace *ABN*(06/18/22 UA Ketones) 6:10 AM) [facility] AND [id number] 11:10:00 Test Item Value Reference Range Interpretation Comments UA Bili (test code = Small *ABN*(06/18/22 6:10 UA Bili) AM) [facility] AND [id number] 11:10:00 Test Item Value Reference Range Interpretation Comments UA Blood (test code = Negative (06/18/22 6:10 UA Blood) AM) [facility] AND [id number] 11:10:00 Test Item Value Reference Range Interpretation Comments UA Urobilinogen (test code = UA 0.2 0.1-1.0 Urobilinogen) [facility] AND [id number] 11:10:00 Test Item Value Reference Range Interpretation Comments UA Nitrite (test code Negative (06/18/22 6:10 = UA Nitrite) AM) [facility] AND [id number] 11:10:00 Test Item Value Reference Range Interpretation Comments UA Leuk Est (test Negative (06/18/22 6:10 code = UA Leuk Est) AM) [facility] AND [id number] 11:10:00 Test Item Value Reference Range Interpretation Comments UA Sq Epi (test code = UA Sq Occasional /LPF Epi) [facility] AND [id number] 11:10:00 Test Item Value Reference Range Interpretation Comments UA WBC (test code = 1 See_Comment [Automa sivakumar message] The UA WBC) system which ge nerated this result transmit sivakumar reference range : <=5. The reference range was not used to interpr et this result as lida l/abnormal. [facility] AND [id number] 11:10:00 Test Item Value Reference Range Interpretation Comments UA RBC (test code = 1 See_Comment [Automa sivakumar message] The UA RBC) system which ge nerated this result transmit sivakumar reference range : <=2. The reference range was not used to interpr et this result as lida l/abnormal. [facility] AND [id number] 11:10:00 Test Item Value Reference Range Interpretation Comments UA Mucus (test code = UA Mucus) Few /LPF [facility] AND [id number] 11:10:00 Test Item Value Reference Range Interpretation Comments UA Hyal Cast (test 5 See_Comment [Automat ed message] The code = UA Hyal Cast) system which generated this result transmit sivakumar reference range : <=2. The reference range was not used to interpr et this result as lida l/abnormal. [facility] AND [id number] 11:10:00 Test Item Value Reference Range Interpretation Comments UA Color (test code = [place] *ABN*(06/18/22 UA Color) 6:10 AM) [facility] AND [id number] 11:10:00 Test Item Value Reference Range Interpretation Comments UA Turbidity (test code = Clear (06/18/22 6:10 UA Turbidity) AM) [facility] AND [id number] 11:10:00 Test Item Value Reference Range Interpretation Comments UA Spec Grav (test >=1.030 *ABN*(06/18/22 code = UA Spec Grav) 6:10 AM) [facility] AND [id number] 11:10:00 Test Item Value Reference Range Interpretation Comments UA pH (test code = UA pH) 6.0 1 5.0-8.0 [facility] AND [id number] 11:10:00 Test Item Value Reference Range Interpretation Comments UA Protein (test code Negative (06/18/22 6:10 = UA Protein) AM) [facility] AND [id number] 11:10:00 Test Item Value Reference Range Interpretation Comments UA Glucose (test code Negative (06/18/22 6:10 = UA Glucose) AM) [facility] AND [id number] 11:10:00 Test Item Value Reference Range Interpretation Comments UA Ketones (test code = Trace *ABN*(06/18/22 UA Ketones) 6:10 AM) [facility] AND [id number] 11:10:00 Test Item Value Reference Range Interpretation Comments UA Bili (test code = Small *ABN*(06/18/22 6:10 UA Bili) AM) [facility] AND [id number] 11:10:00 Test Item Value Reference Range Interpretation Comments UA Blood (test code = Negative (06/18/22 6:10 UA Blood) AM) [facility] AND [id number] 11:10:00 Test Item Value Reference Range Interpretation Comments UA Urobilinogen (test code = UA 0.2 0.1-1.0 Urobilinogen) [facility] AND [id number] 11:10:00 Test Item Value Reference Range Interpretation Comments UA Nitrite (test code Negative (06/18/22 6:10 = UA Nitrite) AM) [facility] AND [id number] 11:10:00 Test Item Value Reference Range Interpretation Comments UA Leuk Est (test Negative (06/18/22 6:10 code = UA Leuk Est) AM) [facility] AND [id number] 11:10:00 Test Item Value Reference Range Interpretation Comments UA Sq Epi (test code = UA Sq Occasional /LPF Epi) [facility] AND [id number] 11:10:00 Test Item Value Reference Range Interpretation Comments UA WBC (test code = 1 See_Comment [Automa sivakumar message] The UA WBC) system which ge nerated this result transmit sivakumar reference range : <=5. The reference range was not used to interpr et this result as lida l/abnormal. [facility] AND [id number] 11:10:00 Test Item Value Reference Range Interpretation Comments UA RBC (test code = 1 See_Comment [Automa sivakumar message] The UA RBC) system which ge nerated this result transmit sivakumar reference range : <=2. The reference range was not used to interpr et this result as lida l/abnormal. [facility] AND [id number] 11:10:00 Test Item Value Reference Range Interpretation Comments UA Mucus (test code = UA Mucus) Few /LPF [facility] AND [id number] 11:10:00 Test Item Value Reference Range Interpretation Comments UA Hyal Cast (test 5 See_Comment [Automat ed message] The code = UA Hyal Cast) system which generated this result transmit sivakumar reference range : <=2. The reference range was not used to interpr et this result as lida l/abnormal. [facility] AND [id number] 11:10:00 Test Item Value Reference Range Interpretation Comments UA Color (test code = [place] *ABN*(06/18/22 UA Color) 6:10 AM) [facility] AND [id number] 11:10:00 Test Item Value Reference Range Interpretation Comments UA Turbidity (test code = Clear (06/18/22 6:10 UA Turbidity) AM) [facility] AND [id number] 11:10:00 Test Item Value Reference Range Interpretation Comments UA Spec Grav (test >=1.030 *ABN*(06/18/22 code = UA Spec Grav) 6:10 AM) [facility] AND [id number] 11:10:00 Test Item Value Reference Range Interpretation Comments UA pH (test code = UA pH) 6.0 1 5.0-8.0 [facility] AND [id number] 11:10:00 Test Item Value Reference Range Interpretation Comments UA Protein (test code Negative (06/18/22 6:10 = UA Protein) AM) [facility] AND [id number] 11:10:00 Test Item Value Reference Range Interpretation Comments UA Glucose (test code Negative (06/18/22 6:10 = UA Glucose) AM) [facility] AND [id number] 11:10:00 Test Item Value Reference Range Interpretation Comments UA Ketones (test code = Trace *ABN*(06/18/22 UA Ketones) 6:10 AM) [facility] AND [id number] 11:10:00 Test Item Value Reference Range Interpretation Comments UA Bili (test code = Small *ABN*(06/18/22 6:10 UA Bili) AM) [facility] AND [id number] 11:10:00 Test Item Value Reference Range Interpretation Comments UA Blood (test code = Negative (06/18/22 6:10 UA Blood) AM) [facility] AND [id number] 11:10:00 Test Item Value Reference Range Interpretation Comments UA Urobilinogen (test code = UA 0.2 0.1-1.0 Urobilinogen) [facility] AND [id number] 11:10:00 Test Item Value Reference Range Interpretation Comments UA Nitrite (test code Negative (06/18/22 6:10 = UA Nitrite) AM) [facility] AND [id number] 11:10:00 Test Item Value Reference Range Interpretation Comments UA Leuk Est (test Negative (06/18/22 6:10 code = UA Leuk Est) AM) [facility] AND [id number] 11:10:00 Test Item Value Reference Range Interpretation Comments UA Sq Epi (test code = UA Sq Occasional /LPF Epi) [facility] AND [id number] 11:10:00 Test Item Value Reference Range Interpretation Comments UA WBC (test code = 1 See_Comment [Automa sivakumar message] The UA WBC) system which ge nerated this result transmit sivakumar reference range : <=5. The reference range was not used to interpr et this result as lida l/abnormal. [facility] AND [id number] 11:10:00 Test Item Value Reference Range Interpretation Comments UA RBC (test code = 1 See_Comment [Automa sivakumar message] The UA RBC) system which ge nerated this result transmit sivakumar reference range : <=2. The reference range was not used to interpr et this result as lida l/abnormal. [facility] AND [id number] 11:10:00 Test Item Value Reference Range Interpretation Comments UA Mucus (test code = UA Mucus) Few /LPF [facility] AND [id number] 11:10:00 Test Item Value Reference Range Interpretation Comments UA Hyal Cast (test 5 See_Comment [Automat ed message] The code = UA Hyal Cast) system which generated this result transmit sivakumar reference range : <=2. The reference range was not used to interpr et this result as lida l/abnormal. [facility] AND [id number] 11:10:00 Test Item Value Reference Range Interpretation Comments UA Color (test code = [place] *ABN*(06/18/22 UA Color) 6:10 AM) [facility] AND [id number] 11:10:00 Test Item Value Reference Range Interpretation Comments UA Turbidity (test code = Clear (06/18/22 6:10 UA Turbidity) AM) [facility] AND [id number] 11:10:00 Test Item Value Reference Range Interpretation Comments UA Spec Grav (test >=1.030 *ABN*(06/18/22 code = UA Spec Grav) 6:10 AM) [facility] AND [id number] 11:10:00 Test Item Value Reference Range Interpretation Comments UA pH (test code = UA pH) 6.0 1 5.0-8.0 [facility] AND [id number] 11:10:00 Test Item Value Reference Range Interpretation Comments UA Protein (test code Negative (06/18/22 6:10 = UA Protein) AM) [facility] AND [id number] 11:10:00 Test Item Value Reference Range Interpretation Comments UA Glucose (test code Negative (06/18/22 6:10 = UA Glucose) AM) [facility] AND [id number] 11:10:00 Test Item Value Reference Range Interpretation Comments UA Ketones (test code = Trace *ABN*(06/18/22 UA Ketones) 6:10 AM) [facility] AND [id number] 11:10:00 Test Item Value Reference Range Interpretation Comments UA Bili (test code = Small *ABN*(06/18/22 6:10 UA Bili) AM) [facility] AND [id number] 11:10:00 Test Item Value Reference Range Interpretation Comments UA Blood (test code = Negative (06/18/22 6:10 UA Blood) AM) [facility] AND [id number] 11:10:00 Test Item Value Reference Range Interpretation Comments UA Urobilinogen (test code = UA 0.2 0.1-1.0 Urobilinogen) [facility] AND [id number] 11:10:00 Test Item Value Reference Range Interpretation Comments UA Nitrite (test code Negative (06/18/22 6:10 = UA Nitrite) AM) [facility] AND [id number] 11:10:00 Test Item Value Reference Range Interpretation Comments UA Leuk Est (test Negative (06/18/22 6:10 code = UA Leuk Est) AM) [id number] 10:10:00 Test Item Value Reference Range Interpretation Comments ACT (TEG) Rapid (test code = ACT (TEG) 105 s 86-118 Rapid) [id number] 10:10:00 Test Item Value Reference Range Interpretation Comments Split Point Rapid (test code = Split 0.3 min Point Rapid) [facility] HospitalTcfkxezHQTIQPXSFJ8670-03-60 10:10:00 Test Item Value Reference Range Interpretation Comments R-time Rapid (test code = R-time 0.6 min 0.4-0.7 Rapid) [id number] 10:10:00 Test Item Value Reference Range Interpretation Comments K-time Rapid (test code = K-time 1.5 min 0.6-2.3 Rapid) [id number] 10:10:00 Test Item Value Reference Range Interpretation Comments Angle Rapid (test code = Angle 71 degrees 64-80 Rapid) [id number] 10:10:00 Test Item Value Reference Range Interpretation Comments Max Amplitude Rapid (test code = Max 64 mm 52-71 Amplitude Rapid) [facility] H[id number] 10:10:00 Test Item Value Reference Range Interpretation Comments G-value Rapid (test code = G-value 8.8 5.0-11.6 Rapid) [facility] H[id number] 10:10:00 Test Item Value Reference Range Interpretation Comments Estimated % Lysis Rapid 1.1 See_Comment [Au tomated message] The (test code = Estimated syste m which generated % Lysis Rapid) this result t ransmitted reference range : <=7.5. The reference r mirela was not used to int erpret this result as normal/abnormal . [facility] H[id number] 10:10:00 Test Item Value Reference Range Interpretation Comments ACT (TEG) Rapid (test code = ACT (TEG) 105 s 86-118 Rapid) [id number] 10:10:00 Test Item Value Reference Range Interpretation Comments Split Point Rapid (test code = Split 0.3 min Point Rapid) [facility] H[id number] 10:10:00 Test Item Value Reference Range Interpretation Comments R-time Rapid (test code = R-time 0.6 min 0.4-0.7 Rapid) [facility] Ho[id number] 10:10:00 Test Item Value Reference Range Interpretation Comments K-time Rapid (test code = K-time 1.5 min 0.6-2.3 Rapid) [place] 765532-09-03 10:10:00 Test Item Value Reference Range Interpretation Comments Angle Rapid (test code = Angle 71 degrees 64-80 Rapid) [facility] H[id number] 10:10:00 Test Item Value Reference Range Interpretation Comments Max Amplitude Rapid (test code = Max 64 mm 52-71 Amplitude Rapid) [place] 765532-09-03 10:10:00 Test Item Value Reference Range Interpretation Comments G-value Rapid (test code = G-value 8.8 5.0-11.6 Rapid) [facility] HospitalAcdtgmfHHZYGZUENC2455-04-01 10:10:00 Test Item Value Reference Range Interpretation Comments Estimated % Lysis Rapid 1.1 See_Comment [Au tomated message] The (test code = Estimated syste m which generated % Lysis Rapid) this result t ransmitted reference range : <=7.5. The reference r mirela was not used to int erpret this result as normal/abnormal . [facility] H[id number] 10:10:00 Test Item Value Reference Range Interpretation Comments ACT (TEG) Rapid (test code = ACT (TEG) 105 s 86-118 Rapid) [facility] H[id number] 10:10:00 Test Item Value Reference Range Interpretation Comments Split Point Rapid (test code = Split 0.3 min Point Rapid) [facility] HospitalKsnebxoOCOBLXCEAP5714-13-48 10:10:00 Test Item Value Reference Range Interpretation Comments R-time Rapid (test code = R-time 0.6 min 0.4-0.7 Rapid) [place] [address]-09-03 10:10:00 Test Item Value Reference Range Interpretation Comments K-time Rapid (test code = K-time 1.5 min 0.6-2.3 Rapid) [facility] Ho[id number] 10:10:00 Test Item Value Reference Range Interpretation Comments Angle Rapid (test code = Angle 71 degrees 64-80 Rapid) [place] 765532-09-03 10:10:00 Test Item Value Reference Range Interpretation Comments Max Amplitude Rapid (test code = Max 64 mm 52-71 Amplitude Rapid) [place] [address]-09-03 10:10:00 Test Item Value Reference Range Interpretation Comments G-value Rapid (test code = G-value 8.8 5.0-11.6 Rapid) [facility] H[id number] 10:10:00 Test Item Value Reference Range Interpretation Comments Estimated % Lysis Rapid 1.1 See_Comment [Au tomated message] The (test code = Estimated syste m which generated % Lysis Rapid) this result t ransmitted reference range : <=7.5. The reference r mirela was not used to int erpret this result as normal/abnormal . [place] 765532-09-03 10:10:00 Test Item Value Reference Range Interpretation Comments ACT (TEG) Rapid (test code = ACT (TEG) 105 s 86-118 Rapid) [place] 765532-09-03 10:10:00 Test Item Value Reference Range Interpretation Comments Split Point Rapid (test code = Split 0.3 min Point Rapid) [place] [address]-09-03 10:10:00 Test Item Value Reference Range Interpretation Comments R-time Rapid (test code = R-time 0.6 min 0.4-0.7 Rapid) [place] [address]-09-03 10:10:00 Test Item Value Reference Range Interpretation Comments K-time Rapid (test code = K-time 1.5 min 0.6-2.3 Rapid) [place] [address]-09-03 10:10:00 Test Item Value Reference Range Interpretation Comments Angle Rapid (test code = Angle 71 degrees 64-80 Rapid) [place] 765532-09-03 10:10:00 Test Item Value Reference Range Interpretation Comments Max Amplitude Rapid (test code = Max 64 mm 52-71 Amplitude Rapid) [place] [address]-09-03 10:10:00 Test Item Value Reference Range Interpretation Comments G-value Rapid (test code = G-value 8.8 5.0-11.6 Rapid) [place] [address]-09-03 10:10:00 Test Item Value Reference Range Interpretation Comments Estimated % Lysis Rapid 1.1 See_Comment [Au tomated message] The (test code = Estimated syste m which generated % Lysis Rapid) this result t ransmitted reference range : <=7.5. The reference r mirela was not used to int erpret this result as normal/abnormal . [place] 765532-09-03 10:10:00 Test Item Value Reference Range Interpretation Comments ACT (TEG) Rapid (test code = ACT (TEG) 105 s 86-118 Rapid) [place] [address]-09-03 10:10:00 Test Item Value Reference Range Interpretation Comments Split Point Rapid (test code = Split 0.3 min Point Rapid) [place] [address]-09-03 10:10:00 Test Item Value Reference Range Interpretation Comments R-time Rapid (test code = R-time 0.6 min 0.4-0.7 Rapid) [place] [address]-09-03 10:10:00 Test Item Value Reference Range Interpretation Comments K-time Rapid (test code = K-time 1.5 min 0.6-2.3 Rapid) [place] [address]-09-03 10:10:00 Test Item Value Reference Range Interpretation Comments Angle Rapid (test code = Angle 71 degrees 64-80 Rapid) [place] [address]-09-03 10:10:00 Test Item Value Reference Range Interpretation Comments Max Amplitude Rapid (test code = Max 64 mm 52-71 Amplitude Rapid) [place] [address]-09-03 10:10:00 Test Item Value Reference Range Interpretation Comments G-value Rapid (test code = G-value 8.8 5.0-11.6 Rapid) [facility] H[id number] 10:10:00 Test Item Value Reference Range Interpretation Comments Estimated % Lysis Rapid 1.1 See_Comment [Au tomated message] The (test code = Estimated syste m which generated % Lysis Rapid) this result t ransmitted reference range : <=7.5. The reference r mirela was not used to int erpret this result as normal/abnormal . [facility] HospitalCxeyabaSJKWWXUPWJ6400-28-76 08:19:57 Test Item Value Reference Range Interpretation Comments WBC X 10x3 (test code = WBC X 10x3) 23.6 3.7-10.4 [place] [address]-09-03 08:19:57 Test Item Value Reference Range Interpretation Comments RBC X 10x6 (test code = RBC X 10x6) 3.63 4.70-6.10 [place] 765532-09-03 08:19:57 Test Item Value Reference Range Interpretation Comments Hgb (test code = Hgb) 13.0 14.0-18.0 [place] [address]-09-03 08:19:57 Test Item Value Reference Range Interpretation Comments Hct (test code = Hct) 38.9 42.0-54.0 [place] [address]-09-03 08:19:57 Test Item Value Reference Range Interpretation Comments MCV (test code = MCV) 107.3 80.0-94.0 [place] 765532-09-03 08:19:57 Test Item Value Reference Range Interpretation Comments MCH (test code = MCH) 35.9 pg 27.0-31.0 [place] 765532-09-03 08:19:57 Test Item Value Reference Range Interpretation Comments MCHC (test code = MCHC) 33.5 32.0-36.0 [place] [address]-09-03 08:19:57 Test Item Value Reference Range Interpretation Comments RDW (test code = RDW) 12.9 11.5-14.5 [place] 765532-09-03 08:19:57 Test Item Value Reference Range Interpretation Comments Platelet (test code = Platelet) 294 133-450 [place] 765532-09-03 08:19:57 Test Item Value Reference Range Interpretation Comments MPV (test code = MPV) 7.3 7.4-10.[address]09-03 08:19:57 Test Item Value Reference Range Interpretation Comments RBC Morph (test code = Normal (06/18/22 3:19 AM) RBC Morph) [place] [address]-09-03 08:19:57 Test Item Value Reference Range Interpretation Comments Plt Morph (test code = See Note 2(06/18/22 3:19 Plt Morph) AM) [place] [address]-09-03 08:19:57 Test Item Value Reference Range Interpretation Comments Segs (test code = Segs) 89.5 45.0-75.0 [address]09-03 08:19:57 Test Item Value Reference Range Interpretation Comments Lymphocytes (test code = Lymphocytes) 2.6 20.0-40.0 [address]09-03 08:19:57 Test Item Value Reference Range Interpretation Comments Monocytes (test code = Monocytes) 7.4 2.0-12.[address]09-03 08:19:57 Test Item Value Reference Range Interpretation Comments Basophils (test code = 0.5 See_Comment [Aut omated message] The Basophils) system which ge nerated this result tra nsmitted reference range : <=1.0. The reference r mirela was not used to int erpret this result as normal/abnormal . [address]09-03 08:19:57 Test Item Value Reference Range Interpretation Comments Neutrophils # (test code = Neutrophils 21.2 1.5-8.1 #) [address]09-03 08:19:57 Test Item Value Reference Range Interpretation Comments Lymphocytes # (test code = Lymphocytes 0.6 1.0-5.5 #) [address]09-03 08:19:57 Test Item Value Reference Range Interpretation Comments Monocytes # (test code 1.7 See_Comment [Aut omated message] The = Monocytes #) system which generated this result tra nsmitted reference range : <=0.8. The reference r mirela was not used to int erpret this result as normal/abnormal . [address]09-03 08:19:57 Test Item Value Reference Range Interpretation Comments Basophils # (test code 0.1 See_Comment [Aut omated message] The = Basophils #) system which generated this result tra nsmitted reference range : <=0.2. The reference r mirela was not used to int erpret this result as normal/abnormal . [facility] HospitalEaaqcbbQOOXHFTXTC8154-73-93 08:19:57 Test Item Value Reference Range Interpretation Comments Macrocyte (test code = 2+ *ABN*(06/18/22 3:19 Macrocyte) AM) [facility] HospitalEinfmojNDJECROEKD9581-13-34 08:19:57 Test Item Value Reference Range Interpretation Comments Toxic Gran (test code = Toxic Occasional Gran) [facility] HospitalJnbelwuRMJRLWMNVW3087-98-73 08:19:57 Test Item Value Reference Range Interpretation Comments Large Plt (test code = Large Plt) Occasional [facility] HospitalOjjrmjmELLJFJPISC8243-09-33 08:19:57 Test Item Value Reference Range Interpretation Comments WBC X 10x3 (test code = WBC X 10x3) 23.6 3.7-10.4 [place] 765532-09-03 08:19:57 Test Item Value Reference Range Interpretation Comments RBC X 10x6 (test code = RBC X 10x6) 3.63 4.70-6.10 [facility] HospitalFqnoexeQTTGHQBOVK0578-23-48 08:19:57 Test Item Value Reference Range Interpretation Comments Hgb (test code = Hgb) 13.0 14.0-18.0 [facility] HospitalWahnvjiIONOVQLGIO8990-15-25 08:19:57 Test Item Value Reference Range Interpretation Comments Hct (test code = Hct) 38.9 42.0-54.0 [place] 765532-09-03 08:19:57 Test Item Value Reference Range Interpretation Comments MCV (test code = MCV) 107.3 80.0-94.0 [place] [address]-09-03 08:19:57 Test Item Value Reference Range Interpretation Comments MCH (test code = MCH) 35.9 pg 27.0-31.0 [place] 765532-09-03 08:19:57 Test Item Value Reference Range Interpretation Comments MCHC (test code = MCHC) 33.5 32.0-36.0 [place] 765532-09-03 08:19:57 Test Item Value Reference Range Interpretation Comments RDW (test code = RDW) 12.9 11.5-14.5 [place] [address]-09-03 08:19:57 Test Item Value Reference Range Interpretation Comments Platelet (test code = Platelet) 294 133-450 [place] [address]-09-03 08:19:57 Test Item Value Reference Range Interpretation Comments MPV (test code = MPV) 7.3 7.4-10.4 [place] [address]-09-03 08:19:57 Test Item Value Reference Range Interpretation Comments RBC Morph (test code = Normal (06/18/22 3:19 AM) RBC Morph) [place] [address]-09-03 08:19:57 Test Item Value Reference Range Interpretation Comments Plt Morph (test code = See Note 2(06/18/22 3:19 Plt Morph) AM) [place] [address]-09-03 08:19:57 Test Item Value Reference Range Interpretation Comments Segs (test code = Segs) 89.5 45.0-75.0 [place] [address]-09-03 08:19:57 Test Item Value Reference Range Interpretation Comments Lymphocytes (test code = Lymphocytes) 2.6 20.0-40.0 [place] [address]-09-03 08:19:57 Test Item Value Reference Range Interpretation Comments Monocytes (test code = Monocytes) 7.4 2.0-12.0 [place] [address]-09-03 08:19:57 Test Item Value Reference Range Interpretation Comments Basophils (test code = 0.5 See_Comment [Aut omated message] The Basophils) system which ge nerated this result tra nsmitted reference range : <=1.0. The reference r mirela was not used to int erpret this result as normal/abnormal . [place] [address]-09-03 08:19:57 Test Item Value Reference Range Interpretation Comments Neutrophils # (test code = Neutrophils 21.2 1.5-8.1 #) [place] [address]-09-03 08:19:57 Test Item Value Reference Range Interpretation Comments Lymphocytes # (test code = Lymphocytes 0.6 1.0-5.5 #) [place] [address]-09-03 08:19:57 Test Item Value Reference Range Interpretation Comments Monocytes # (test code 1.7 See_Comment [Aut omated message] The = Monocytes #) system which generated this result tra nsmitted reference range : <=0.8. The reference r mirela was not used to int erpret this result as normal/abnormal . [facility] HospitalWighhtbSWDURTSFXR7716-74-39 08:19:57 Test Item Value Reference Range Interpretation Comments Basophils # (test code 0.1 See_Comment [Aut omated message] The = Basophils #) system which generated this result tra nsmitted reference range : <=0.2. The reference r mirela was not used to int erpret this result as normal/abnormal . [facility] HospitalHxajoyaNVYUEWKRWY5266-72-07 08:19:57 Test Item Value Reference Range Interpretation Comments Macrocyte (test code = 2+ *ABN*(06/18/22 3:19 Macrocyte) AM) [place] 765532-09-03 08:19:57 Test Item Value Reference Range Interpretation Comments Toxic Gran (test code = Toxic Occasional Gran) [place] 765532-09-03 08:19:57 Test Item Value Reference Range Interpretation Comments Large Plt (test code = Large Plt) Occasional [place] 765532-09-03 08:19:57 Test Item Value Reference Range Interpretation Comments WBC X 10x3 (test code = WBC X 10x3) 23.6 3.7-10.4 [place] [address]-09-03 08:19:57 Test Item Value Reference Range Interpretation Comments RBC X 10x6 (test code = RBC X 10x6) 3.63 4.70-6.10 [place] 765532-09-03 08:19:57 Test Item Value Reference Range Interpretation Comments Hgb (test code = Hgb) 13.0 14.0-18.0 [place] [address]-09-03 08:19:57 Test Item Value Reference Range Interpretation Comments Hct (test code = Hct) 38.9 42.0-54.0 [place] [address]-09-03 08:19:57 Test Item Value Reference Range Interpretation Comments MCV (test code = MCV) 107.3 80.0-94.0 [place] [address]-09-03 08:19:57 Test Item Value Reference Range Interpretation Comments MCH (test code = MCH) 35.9 pg 27.0-31.0 [place] [address]-09-03 08:19:57 Test Item Value Reference Range Interpretation Comments MCHC (test code = MCHC) 33.5 32.0-36.0 [place] [address]-09-03 08:19:57 Test Item Value Reference Range Interpretation Comments RDW (test code = RDW) 12.9 11.5-14.5 [place] [address]-09-03 08:19:57 Test Item Value Reference Range Interpretation Comments Platelet (test code = Platelet) 294 133-450 [place] [address]-09-03 08:19:57 Test Item Value Reference Range Interpretation Comments MPV (test code = MPV) 7.3 7.4-10.4 [place] [address]-09-03 08:19:57 Test Item Value Reference Range Interpretation Comments RBC Morph (test code = Normal (06/18/22 3:19 AM) RBC Morph) [place] [address]-09-03 08:19:57 Test Item Value Reference Range Interpretation Comments Plt Morph (test code = See Note 2(06/18/22 3:19 Plt Morph) AM) [facility] HospitalKrioulnOATGWTPHZU1952-85-08 08:19:57 Test Item Value Reference Range Interpretation Comments Segs (test code = Segs) 89.5 45.0-75.0 [place] [address]-09-03 08:19:57 Test Item Value Reference Range Interpretation Comments Lymphocytes (test code = Lymphocytes) 2.6 20.0-40.0 [place] [address]-09-03 08:19:57 Test Item Value Reference Range Interpretation Comments Monocytes (test code = Monocytes) 7.4 2.0-12.0 [place] [address]-09-03 08:19:57 Test Item Value Reference Range Interpretation Comments Basophils (test code = 0.5 See_Comment [Aut omated message] The Basophils) system which ge nerated this result tra nsmitted reference range : <=1.0. The reference r mirela was not used to int erpret this result as normal/abnormal . [place] [address]-09-03 08:19:57 Test Item Value Reference Range Interpretation Comments Neutrophils # (test code = Neutrophils 21.2 1.5-8.1 #) [place] [address]-09-03 08:19:57 Test Item Value Reference Range Interpretation Comments Lymphocytes # (test code = Lymphocytes 0.6 1.0-5.5 #) [place] [address]-09-03 08:19:57 Test Item Value Reference Range Interpretation Comments Monocytes # (test code 1.7 See_Comment [Aut omated message] The = Monocytes #) system which generated this result tra nsmitted reference range : <=0.8. The reference r mirela was not used to int erpret this result as normal/abnormal . [place] [address]-09-03 08:19:57 Test Item Value Reference Range Interpretation Comments Basophils # (test code 0.1 See_Comment [Aut omated message] The = Basophils #) system which generated this result tra nsmitted reference range : <=0.2. The reference r mirela was not used to int erpret this result as normal/abnormal . [place] [address]-09-03 08:19:57 Test Item Value Reference Range Interpretation Comments Macrocyte (test code = 2+ *ABN*(06/18/22 3:19 Macrocyte) AM) [facility] HospitalZpfpibsTBVDHFGDHG8539-84-74 08:19:57 Test Item Value Reference Range Interpretation Comments Toxic Gran (test code = Toxic Occasional Gran) [facility] HospitalXaiclolRMEMHZWMVT6108-78-05 08:19:57 Test Item Value Reference Range Interpretation Comments Large Plt (test code = Large Plt) Occasional [place] 765532-09-03 08:19:57 Test Item Value Reference Range Interpretation Comments WBC X 10x3 (test code = WBC X 10x3) 23.6 3.7-10.4 [place] [address]-09-03 08:19:57 Test Item Value Reference Range Interpretation Comments RBC X 10x6 (test code = RBC X 10x6) 3.63 4.70-6.10 [place] [address]-09-03 08:19:57 Test Item Value Reference Range Interpretation Comments Hgb (test code = Hgb) 13.0 14.0-18.0 [place] [address]-09-03 08:19:57 Test Item Value Reference Range Interpretation Comments Hct (test code = Hct) 38.9 42.0-54.0 [place] [address]-09-03 08:19:57 Test Item Value Reference Range Interpretation Comments MCV (test code = MCV) 107.3 80.0-94.0 [place] [address]-09-03 08:19:57 Test Item Value Reference Range Interpretation Comments MCH (test code = MCH) 35.9 pg 27.0-31.0 [place] 765532-09-03 08:19:57 Test Item Value Reference Range Interpretation Comments MCHC (test code = MCHC) 33.5 32.0-36.0 [place] [address]-09-03 08:19:57 Test Item Value Reference Range Interpretation Comments RDW (test code = RDW) 12.9 11.5-14.5 [place] [address]-09-03 08:19:57 Test Item Value Reference Range Interpretation Comments Platelet (test code = Platelet) 294 133-450 [place] 765532-09-03 08:19:57 Test Item Value Reference Range Interpretation Comments MPV (test code = MPV) 7.3 7.4-10.4 [place] [address]-09-03 08:19:57 Test Item Value Reference Range Interpretation Comments RBC Morph (test code = Normal (06/18/22 3:19 AM) RBC Morph) [place] [address]-09-03 08:19:57 Test Item Value Reference Range Interpretation Comments Plt Morph (test code = See Note 2(06/18/22 3:19 Plt Morph) AM) [place] [address]-09-03 08:19:57 Test Item Value Reference Range Interpretation Comments Segs (test code = Segs) 89.5 45.0-75.0 [place] [address]-09-03 08:19:57 Test Item Value Reference Range Interpretation Comments Lymphocytes (test code = Lymphocytes) 2.6 20.0-40.0 [place] [address]-09-03 08:19:57 Test Item Value Reference Range Interpretation Comments Monocytes (test code = Monocytes) 7.4 2.0-12.0 [place] [address]-09-03 08:19:57 Test Item Value Reference Range Interpretation Comments Basophils (test code = 0.5 See_Comment [Aut omated message] The Basophils) system which ge nerated this result tra nsmitted reference range : <=1.0. The reference r mirela was not used to int erpret this result as normal/abnormal . [place] [address]-09-03 08:19:57 Test Item Value Reference Range Interpretation Comments Neutrophils # (test code = Neutrophils 21.2 1.5-8.1 #) [facility] HospitalDafezwrJWGEQHQTAD5773-48-17 08:19:57 Test Item Value Reference Range Interpretation Comments Lymphocytes # (test code = Lymphocytes 0.6 1.0-5.5 #) [place] [address]-09-03 08:19:57 Test Item Value Reference Range Interpretation Comments Monocytes # (test code 1.7 See_Comment [Aut omated message] The = Monocytes #) system which generated this result tra nsmitted reference range : <=0.8. The reference r mirela was not used to int erpret this result as normal/abnormal . [place] [address]-09-03 08:19:57 Test Item Value Reference Range Interpretation Comments Basophils # (test code 0.1 See_Comment [Aut omated message] The = Basophils #) system which generated this result tra nsmitted reference range : <=0.2. The reference r mirela was not used to int erpret this result as normal/abnormal . [facility] HospitalCztefbjWLOBTPBZNI1603-53-40 08:19:57 Test Item Value Reference Range Interpretation Comments Macrocyte (test code = 2+ *ABN*(06/18/22 3:19 Macrocyte) AM) [place] [address]-09-03 08:19:57 Test Item Value Reference Range Interpretation Comments Toxic Gran (test code = Toxic Occasional Gran) [place] [address]65532-09-03 08:19:57 Test Item Value Reference Range Interpretation Comments Large Plt (test code = Large Plt) Occasional [place] 765532-09-03 08:19:57 Test Item Value Reference Range Interpretation Comments WBC X 10x3 (test code = WBC X 10x3) 23.6 3.7-10.4 [place] [address]-09-03 08:19:57 Test Item Value Reference Range Interpretation Comments RBC X 10x6 (test code = RBC X 10x6) 3.63 4.70-6.10 [place] [address]-09-03 08:19:57 Test Item Value Reference Range Interpretation Comments Hgb (test code = Hgb) 13.0 14.0-18.0 [place] [address]-09-03 08:19:57 Test Item Value Reference Range Interpretation Comments Hct (test code = Hct) 38.9 42.0-54.0 [place] [address]-09-03 08:19:57 Test Item Value Reference Range Interpretation Comments MCV (test code = MCV) 107.3 80.0-94.0 [place] [address]-09-03 08:19:57 Test Item Value Reference Range Interpretation Comments MCH (test code = MCH) 35.9 pg 27.0-31.0 [place] [address]-09-03 08:19:57 Test Item Value Reference Range Interpretation Comments MCHC (test code = MCHC) 33.5 32.0-36.0 [place] [address]-09-03 08:19:57 Test Item Value Reference Range Interpretation Comments RDW (test code = RDW) 12.9 11.5-14.5 [place] [address]-09-03 08:19:57 Test Item Value Reference Range Interpretation Comments Platelet (test code = Platelet) 294 133-450 [facility]PxefagsUPWGIADZEN8629-17-54 08:19:57 Test Item Value Reference Range Interpretation Comments MPV (test code = MPV) 7.3 7.4-10.4 [place] [address]-09-03 08:19:57 Test Item Value Reference Range Interpretation Comments RBC Morph (test code = Normal (06/18/22 3:19 AM) RBC Morph) [facility]XvfbsazUSRUVXTBAA5569-21-11 08:19:57 Test Item Value Reference Range Interpretation Comments Plt Morph (test code = See Note 2(06/18/22 3:19 Plt Morph) AM) [place] [address]-09-03 08:19:57 Test Item Value Reference Range Interpretation Comments Segs (test code = Segs) 89.5 45.0-75.0 [place] [address]-09-03 08:19:57 Test Item Value Reference Range Interpretation Comments Lymphocytes (test code = Lymphocytes) 2.6 20.0-40.0 [place] [address]-09-03 08:19:57 Test Item Value Reference Range Interpretation Comments Monocytes (test code = Monocytes) 7.4 2.0-12.0 [address]09-03 08:19:57 Test Item Value Reference Range Interpretation Comments Basophils (test code = 0.5 See_Comment [Aut omated message] The Basophils) system which ge nerated this result tra nsmitted reference range : <=1.0. The reference r mirela was not used to int erpret this result as normal/abnormal . [facility] HospitalNzqpqfrBJGBJVUTNO7714-06-41 08:19:57 Test Item Value Reference Range Interpretation Comments Neutrophils # (test code = Neutrophils 21.2 1.5-8.1 #) [facility] HospitalWkjummyZVZBSYONMP5302-53-87 08:19:57 Test Item Value Reference Range Interpretation Comments Lymphocytes # (test code = Lymphocytes 0.6 1.0-5.5 #) [place] [address]-09-03 08:19:57 Test Item Value Reference Range Interpretation Comments Monocytes # (test code 1.7 See_Comment [Aut omated message] The = Monocytes #) system which generated this result tra nsmitted reference range : <=0.8. The reference r mirela was not used to int erpret this result as normal/abnormal . [place] [address]-09-03 08:19:57 Test Item Value Reference Range Interpretation Comments Basophils # (test code 0.1 See_Comment [Aut omated message] The = Basophils #) system which generated this result tra nsmitted reference range : <=0.2. The reference r mirela was not used to int erpret this result as normal/abnormal . [facility] HospitalKivjwtgRRCJKDAQRL0395-91-16 08:19:57 Test Item Value Reference Range Interpretation Comments Macrocyte (test code = 2+ *ABN*(06/18/22 3:19 Macrocyte) AM) [facility] HospitalJehjmhdREHSREGEKM4416-88-92 08:19:57 Test Item Value Reference Range Interpretation Comments Toxic Gran (test code = Toxic Occasional Gran) [place]65532-09-03 08:19:57 Test Item Value Reference Range Interpretation Comments Large Plt (test code = Large Plt) Occasional [facility] HospitalVpbaoyrRXCSHVDLZJVU7320-28-28 17:27:00 Test Item Value Reference Range Interpretation Comments AGAP (test code = AGAP) 14.7 10.0-20.0 [facility] HospitalZwyfysfSGHNYEHTMRYK7538-16-58 17:27:00 Test Item Value Reference Range Interpretation Comments eGFR (test code = eGFR) 70 [facility] HospitalPuslfdlUFMNJWQQFQTQ0840-88-23 17:27:00 Test Item Value Reference Range Interpretation Comments BUN (test code = BUN) 16 7-22 [facility] HospitalWbwtlrvYBEZTKVBUOLV0383-71-46 17:27:00 Test Item Value Reference Range Interpretation Comments Potassium Lvl (test code = Potassium 3.7 3.5-5.1 Lvl) [facility] HospitalJknyubpLQHGKSJHRXPI0219-97-52 17:27:00 Test Item Value Reference Range Interpretation Comments Glucose Lvl (test code = Glucose Lvl) 87 70-99 [facility] HospitalXvkrwbcSXICPPUMORVO7823-19-42 17:27:00 Test Item Value Reference Range Interpretation Comments Sodium Lvl (test code = Sodium Lvl) 139 135-145 [facility] HospitalOkaruwjOGIFUKIHOVXW6119-83-20 17:27:00 Test Item Value Reference Range Interpretation Comments CO2 (test code = CO2) 23 24-32 [facility] HospitalRhqotqyNAWRMVHLOUTH0148-48-06 17:27:00 Test Item Value Reference Range Interpretation Comments Chloride Lvl (test code = Chloride Lvl) 105 95-109 [facility] HospitalHcmsdviHJWTRILEMNYA3895-88-63 17:27:00 Test Item Value Reference Range Interpretation Comments Calcium Lvl (test code = Calcium Lvl) 8.8 8.5-10.5 [facility] HospitalOydduwzZGWNAOEZAHES2616-26-93 17:27:00 Test Item Value Reference Range Interpretation Comments Creatinine Lvl (test code = Creatinine 0.98 0.50-1.40 Lvl) [facility] HospitalKyathlpUYFCXKWHXC9988-62-63 17:27:00 Test Item Value Reference Range Interpretation Comments INR (test code = INR) 1.04 1 0.85-1.17 [facility] HospitalKhrodkfIUOTZMZXXQ0747-18-31 17:27:00 Test Item Value Reference Range Interpretation Comments PT (test code = PT) 13.6 s 12.0-14.7 [facility] HospitalJtqssifZOBWDZMVCB3825-82-22 17:27:00 Test Item Value Reference Range Interpretation Comments PTT (test code = PTT) 30.2 s 22.9-35.8 [facility] HospitalZcribxyVZGNYVZPWT2089-40-56 17:27:00 Test Item Value Reference Range Interpretation Comments Platelet (test code = Platelet) 227 133-450 [facility] HospitalGehggelUABRYOTKDT4412-12-91 17:27:00 Test Item Value Reference Range Interpretation Comments MPV (test code = MPV) 7.6 7.4-10.4 [facility] HospitalSmubnfyJUARODVZON1271-74-80 17:27:00 Test Item Value Reference Range Interpretation Comments MCH (test code = MCH) 36.6 pg 27.0-31.0 [facility] HospitalNjtilkvPVPTZGOTVK1057-63-30 17:27:00 Test Item Value Reference Range Interpretation Comments RDW (test code = RDW) 13.1 11.5-14.5 [facility] HospitalBofbssdFJVQRSMIID9209-74-40 17:27:00 Test Item Value Reference Range Interpretation Comments MCHC (test code = MCHC) 34.3 32.0-36.0 [facility] HospitalPevesfiHZLLJERCEC2588-90-37 17:27:00 Test Item Value Reference Range Interpretation Comments RBC (test code = RBC) 4.30 4.70-6.10 [facility] HospitalHdetsgiARARQZNPQZ8229-06-91 17:27:00 Test Item Value Reference Range Interpretation Comments Hgb (test code = Hgb) 15.7 14.0-18.0 [facility] HospitalTjptqgyDXAMBQTIFF2554-61-37 17:27:00 Test Item Value Reference Range Interpretation Comments Hct (test code = Hct) 45.8 42.0-54.0 [facility] HospitalIeufuaiLTCCBORALZ6609-96-55 17:27:00 Test Item Value Reference Range Interpretation Comments MCV (test code = MCV) 106.5 80.0-94.0 [facility] HospitalEbxzivaRTJPGNLWUH7455-98-82 17:27:00 Test Item Value Reference Range Interpretation Comments WBC (test code = WBC) 9.6 3.7-10.4 [facility] HospitalTenxneoBACYGHGVGP7102-04-24 17:27:00 Test Item Value Reference Range Interpretation Comments Eosinophils # (test code 0.1 See_Comment [A utomated message] The = Eosinophils #) system whic h generated this result tra nsmitted reference range : <=0.5. The reference r mirela was not used to int erpret this result as normal/abnormal . [facility] HospitalAhpnlmoMCLZONOWHZ8988-99-09 17:27:00 Test Item Value Reference Range Interpretation Comments Basophils # (test code 0.1 See_Comment [Aut omated message] The = Basophils #) system which generated this result tra nsmitted reference range : <=0.2. The reference r mirela was not used to int erpret this result as normal/abnormal . [facility] HospitalGoscwmxMJGMYYUQEX9359-19-82 17:27:00 Test Item Value Reference Range Interpretation Comments Macrocyte (test code = 2+ *ABN*(11/15/17 Macrocyte) 11:27 AM) [facility] HospitalMnqhzbgLIXUEDPGKI1420-10-17 17:27:00 Test Item Value Reference Range Interpretation Comments Basophils (test code = 1.0 See_Comment [Aut omated message] The Basophils) system which ge nerated this result tra nsmitted reference range : <=1.0. The reference r mirela was not used to int erpret this result as normal/abnormal . [facility] HospitalZrjofvjBQYVKQPLLY4175-96-09 17:27:00 Test Item Value Reference Range Interpretation Comments Monocytes # (test code 1.1 See_Comment [Aut omated message] The = Monocytes #) system which generated this result tra nsmitted reference range : <=0.8. The reference r mirela was not used to int erpret this result as normal/abnormal . [facility] HospitalGdpxbneZNRGHBRAUZ9037-28-89 17:27:00 Test Item Value Reference Range Interpretation Comments Segs-Bands # (test code = Segs-Bands #) 7.2 1.5-8.1 [facility] HospitalDksggzvGLKNAATYGM1424-13-88 17:27:00 Test Item Value Reference Range Interpretation Comments Lymphocytes # (test code = Lymphocytes 1.1 1.0-5.5 #) [facility] HospitalSbqczwpJRPACVKPBX4597-24-84 17:27:00 Test Item Value Reference Range Interpretation Comments Segs (test code = Segs) 74.8 45.0-75.0 [facility] HospitalCmcannqQYLWTBQBYH8393-51-38 17:27:00 Test Item Value Reference Range Interpretation Comments Lymphocytes (test code = Lymphocytes) 11.4 20.0-40.0 [facility] HospitalZrsxzzmNZFXMQPELE0646-16-70 17:27:00 Test Item Value Reference Range Interpretation Comments Eosinophils (test code = 1.4 See_Comment [A utomated message] The Eosinophils) system which ge nerated this result tra nsmitted reference range : <=4.0. The reference r mirela was not used to int erpret this result as normal/abnormal . [facility] HospitalGxzyeamDYEAXAAWSX6869-15-07 17:27:00 Test Item Value Reference Range Interpretation Comments Monocytes (test code = Monocytes) 11.4 2.0-12.0 [facility] HospitalNacdvkfKOSKIAQUZPSI1323-16-21 17:27:00 Test Item Value Reference Range Interpretation Comments AGAP (test code = AGAP) 14.7 10.0-20.0 [facility] HospitalSxqjiugALEDXCTVZQCQ8948-58-46 17:27:00 Test Item Value Reference Range Interpretation Comments eGFR (test code = eGFR) 70 [facility] HospitalNinbnymOHCFIPBDBBUX3580-68-37 17:27:00 Test Item Value Reference Range Interpretation Comments BUN (test code = BUN) 16 7-22 [facility] HospitalJywgazeHGXIRRQXKEUJ2375-43-17 17:27:00 Test Item Value Reference Range Interpretation Comments Potassium Lvl (test code = Potassium 3.7 3.5-5.1 Lvl) [facility] HospitalLgeusmsQLCAWPELOXTM3857-47-21 17:27:00 Test Item Value Reference Range Interpretation Comments Glucose Lvl (test code = Glucose Lvl) 87 70-99 [facility] HospitalZwrqcscHMVDPSFXBJLP7209-03-66 17:27:00 Test Item Value Reference Range Interpretation Comments Sodium Lvl (test code = Sodium Lvl) 139 135-145 [facility] HospitalBddhruoHUIGWWEDXYLQ3263-51-76 17:27:00 Test Item Value Reference Range Interpretation Comments CO2 (test code = CO2) 23 24-32 [facility] HospitalVrajxrtHIATPFTXJDTF8537-37-20 17:27:00 Test Item Value Reference Range Interpretation Comments Chloride Lvl (test code = Chloride Lvl) 105 95-109 [facility] HospitalGbuujdbKSKZHZETZFRU1495-95-32 17:27:00 Test Item Value Reference Range Interpretation Comments Calcium Lvl (test code = Calcium Lvl) 8.8 8.5-10.5 [facility] HospitalHohscxfECMTIQABXDZL9311-33-05 17:27:00 Test Item Value Reference Range Interpretation Comments Creatinine Lvl (test code = Creatinine 0.98 0.50-1.40 Lvl) [facility] HospitalRfeyhqxFDRDREKUDU0403-40-57 17:27:00 Test Item Value Reference Range Interpretation Comments INR (test code = INR) 1.04 1 0.85-1.17 [facility] HospitalYbtbtiuAZDYRCKSLW8412-23-17 17:27:00 Test Item Value Reference Range Interpretation Comments PT (test code = PT) 13.6 s 12.0-14.7 [facility] HospitalLbykkpqQVRTSMSJME2308-03-69 17:27:00 Test Item Value Reference Range Interpretation Comments PTT (test code = PTT) 30.2 s 22.9-35.8 [facility] HospitalLsjhjfqQLHBVCUBHN1855-11-74 17:27:00 Test Item Value Reference Range Interpretation Comments Platelet (test code = Platelet) 227 133-450 [facility] HospitalQejpwoePWLBDVMRWT7549-99-13 17:27:00 Test Item Value Reference Range Interpretation Comments MPV (test code = MPV) 7.6 7.4-10.4 [facility] HospitalBbncyfyEQULERAPTF8399-74-72 17:27:00 Test Item Value Reference Range Interpretation Comments MCH (test code = MCH) 36.6 pg 27.0-31.0 [facility] HospitalSdcoheqZJSFLAICDM3693-53-05 17:27:00 Test Item Value Reference Range Interpretation Comments RDW (test code = RDW) 13.1 11.5-14.5 [facility] HospitalXvnmqdoOHTZQPLIOL2665-17-66 17:27:00 Test Item Value Reference Range Interpretation Comments MCHC (test code = MCHC) 34.3 32.0-36.0 [facility] HospitalVjavgtfWAEDHFOKLC3304-99-77 17:27:00 Test Item Value Reference Range Interpretation Comments RBC (test code = RBC) 4.30 4.70-6.10 [facility] HospitalFvjbkghDWAPIIXLEB9485-83-37 17:27:00 Test Item Value Reference Range Interpretation Comments Hgb (test code = Hgb) 15.7 14.0-18.0 [facility] HospitalHybpzqcIXEMXGHBVZ4082-77-61 17:27:00 Test Item Value Reference Range Interpretation Comments Hct (test code = Hct) 45.8 42.0-54.0 [facility] HospitalTsvhgmlHJPECUJKNG0253-28-77 17:27:00 Test Item Value Reference Range Interpretation Comments MCV (test code = MCV) 106.5 80.0-94.0 [facility] HospitalAjifczgJYCXDVANIJ7006-04-75 17:27:00 Test Item Value Reference Range Interpretation Comments WBC (test code = WBC) 9.6 3.7-10.4 [facility] HospitalGxhmkpdEIECLEWZFH0792-96-64 17:27:00 Test Item Value Reference Range Interpretation Comments Eosinophils # (test code 0.1 See_Comment [A utomated message] The = Eosinophils #) system whic h generated this result tra nsmitted reference range : <=0.5. The reference r mirela was not used to int erpret this result as normal/abnormal . [facility] HospitalAmixjerVMXHHXFYVB6103-34-15 17:27:00 Test Item Value Reference Range Interpretation Comments Basophils # (test code 0.1 See_Comment [Aut omated message] The = Basophils #) system which generated this result tra nsmitted reference range : <=0.2. The reference r mirela was not used to int erpret this result as normal/abnormal . [facility] HospitalHwtwkdcLLNWKODOYU2282-13-50 17:27:00 Test Item Value Reference Range Interpretation Comments Macrocyte (test code = 2+ *ABN*(11/15/17 Macrocyte) 11:27 AM) [facility] HospitalLmatnrxFSXSAHNDUX5411-69-68 17:27:00 Test Item Value Reference Range Interpretation Comments Basophils (test code = 1.0 See_Comment [Aut omated message] The Basophils) system which ge nerated this result tra nsmitted reference range : <=1.0. The reference r mirela was not used to int erpret this result as normal/abnormal . [facility] HospitalBjajhhyZXSYEGCNGP8147-94-69 17:27:00 Test Item Value Reference Range Interpretation Comments Monocytes # (test code 1.1 See_Comment [Aut omated message] The = Monocytes #) system which generated this result tra nsmitted reference range : <=0.8. The reference r mirela was not used to int erpret this result as normal/abnormal . [facility] HospitalMugnrkhQXJURYDOFC4066-81-19 17:27:00 Test Item Value Reference Range Interpretation Comments Segs-Bands # (test code = Segs-Bands #) 7.2 1.5-8.1 [facility] HospitalPslocesWHWIJSICOP6294-41-73 17:27:00 Test Item Value Reference Range Interpretation Comments Lymphocytes # (test code = Lymphocytes 1.1 1.0-5.5 #) [facility] HospitalNumqehjGNKOAZWFHN9819-48-89 17:27:00 Test Item Value Reference Range Interpretation Comments Segs (test code = Segs) 74.8 45.0-75.0 [facility] HospitalQnqojxaXAZSUIKREA1232-85-24 17:27:00 Test Item Value Reference Range Interpretation Comments Lymphocytes (test code = Lymphocytes) 11.4 20.0-40.0 [facility] HospitalQnzgmjxZZEPUQLTUF8515-95-19 17:27:00 Test Item Value Reference Range Interpretation Comments Eosinophils (test code = 1.4 See_Comment [A utomated message] The Eosinophils) system which ge nerated this result tra nsmitted reference range : <=4.0. The reference r mirela was not used to int erpret this result as normal/abnormal . [facility] HospitalMwflcsaHWHCLUXXFX4317-99-68 17:27:00 Test Item Value Reference Range Interpretation Comments Monocytes (test code = Monocytes) 11.4 2.0-12.0 [facility] HospitalBjhacgfTOMWSKQVCMYU9783-70-97 17:27:00 Test Item Value Reference Range Interpretation Comments AGAP (test code = AGAP) 14.7 10.0-20.0 [facility] HospitalKudwevxCWQCGLZNSYWY1088-87-02 17:27:00 Test Item Value Reference Range Interpretation Comments eGFR (test code = eGFR) 70 [facility] HospitalIovjcjyEZMLZQVPYVAQ5684-35-45 17:27:00 Test Item Value Reference Range Interpretation Comments BUN (test code = BUN) 16 7-22 [facility] HospitalLdlgveiGERGDRXJBMNL8516-90-39 17:27:00 Test Item Value Reference Range Interpretation Comments Potassium Lvl (test code = Potassium 3.7 3.5-5.1 Lvl) [facility] HospitalRrymmqzYCKNIEMOICII7051-02-93 17:27:00 Test Item Value Reference Range Interpretation Comments Glucose Lvl (test code = Glucose Lvl) 87 70-99 [facility] HospitalLtxuiesOOPARHOJAGPF9077-22-66 17:27:00 Test Item Value Reference Range Interpretation Comments Sodium Lvl (test code = Sodium Lvl) 139 135-145 [facility] HospitalYhlibbyMCVOGEBXMQDF5882-32-65 17:27:00 Test Item Value Reference Range Interpretation Comments CO2 (test code = CO2) 23 24-32 [facility] HospitalEbntxdjVIQEKOVUSIOF5054-03-55 17:27:00 Test Item Value Reference Range Interpretation Comments Chloride Lvl (test code = Chloride Lvl) 105 95-109 [facility] HospitalRplyonfNXRNGUTAIADA8091-07-64 17:27:00 Test Item Value Reference Range Interpretation Comments Calcium Lvl (test code = Calcium Lvl) 8.8 8.5-10.5 [facility] HospitalUvmupraYKBWQCLGSWWW4627-20-42 17:27:00 Test Item Value Reference Range Interpretation Comments Creatinine Lvl (test code = Creatinine 0.98 0.50-1.40 Lvl) [facility] HospitalTfrhlxsPFYGRSMWSA4837-80-07 17:27:00 Test Item Value Reference Range Interpretation Comments INR (test code = INR) 1.04 1 0.85-1.17 [facility] HospitalOwrmzesEXYDVTPKTB2266-19-50 17:27:00 Test Item Value Reference Range Interpretation Comments PT (test code = PT) 13.6 s 12.0-14.7 [facility] HospitalKlzgwahIAEGSJMGPZ9172-66-09 17:27:00 Test Item Value Reference Range Interpretation Comments PTT (test code = PTT) 30.2 s 22.9-35.8 [facility] HospitalEilhikvDTYTXGPPSS4242-68-17 17:27:00 Test Item Value Reference Range Interpretation Comments Platelet (test code = Platelet) 227 133-450 [facility] HospitalMvrutdkJIOBHKYHXZ6024-62-82 17:27:00 Test Item Value Reference Range Interpretation Comments MPV (test code = MPV) 7.6 7.4-10.4 [facility] HospitalKmxnoinJNLDIXVWNL3560-14-15 17:27:00 Test Item Value Reference Range Interpretation Comments MCH (test code = MCH) 36.6 pg 27.0-31.0 [facility] HospitalHlhvbfqHBFBQNYQEE3344-44-94 17:27:00 Test Item Value Reference Range Interpretation Comments RDW (test code = RDW) 13.1 11.5-14.5 [facility] HospitalHedexhtFJDLFYNNIL1557-74-58 17:27:00 Test Item Value Reference Range Interpretation Comments MCHC (test code = MCHC) 34.3 32.0-36.0 [facility] HospitalUuaujhiCLPHSBUZHN3874-57-82 17:27:00 Test Item Value Reference Range Interpretation Comments RBC (test code = RBC) 4.30 4.70-6.10 [facility] HospitalVypwtqkJPODINCESO9226-33-18 17:27:00 Test Item Value Reference Range Interpretation Comments Hgb (test code = Hgb) 15.7 14.0-18.0 [facility] HospitalBftjsflPYQSBTXCLT6891-11-57 17:27:00 Test Item Value Reference Range Interpretation Comments Hct (test code = Hct) 45.8 42.0-54.0 [facility] HospitalGhkxbxaDTPZLIMZNG8405-42-09 17:27:00 Test Item Value Reference Range Interpretation Comments MCV (test code = MCV) 106.5 80.0-94.0 [facility] HospitalSdfwyrzMCOHAXFPER7948-03-09 17:27:00 Test Item Value Reference Range Interpretation Comments WBC (test code = WBC) 9.6 3.7-10.4 [facility] HospitalYmjcqyjXPMPZQQXRM1930-98-17 17:27:00 Test Item Value Reference Range Interpretation Comments Eosinophils # (test code 0.1 See_Comment [A utomated message] The = Eosinophils #) system whic h generated this result tra nsmitted reference range : <=0.5. The reference r mirela was not used to int erpret this result as normal/abnormal . [facility] HospitalVogittvDTLXOPWNZH8255-98-08 17:27:00 Test Item Value Reference Range Interpretation Comments Basophils # (test code 0.1 See_Comment [Aut omated message] The = Basophils #) system which generated this result tra nsmitted reference range : <=0.2. The reference r mirela was not used to int erpret this result as normal/abnormal . [facility] HospitalGjksbnfEVPQQLEOGO2191-72-90 17:27:00 Test Item Value Reference Range Interpretation Comments Macrocyte (test code = 2+ *ABN*(11/15/17 Macrocyte) 11:27 AM) [facility] HospitalWdmykefUCGZVLLPFF7451-67-31 17:27:00 Test Item Value Reference Range Interpretation Comments Basophils (test code = 1.0 See_Comment [Aut omated message] The Basophils) system which ge nerated this result tra nsmitted reference range : <=1.0. The reference r mirela was not used to int erpret this result as normal/abnormal . [facility] HospitalZoxipqzIOKUWIFJYS4399-29-22 17:27:00 Test Item Value Reference Range Interpretation Comments Monocytes # (test code 1.1 See_Comment [Aut omated message] The = Monocytes #) system which generated this result tra nsmitted reference range : <=0.8. The reference r mirela was not used to int erpret this result as normal/abnormal . [facility] HospitalWdomhurQFQULVRVOC3073-52-69 17:27:00 Test Item Value Reference Range Interpretation Comments Segs-Bands # (test code = Segs-Bands #) 7.2 1.5-8.1 [facility] HospitalVbrljntWDMSUPKYHC6957-48-01 17:27:00 Test Item Value Reference Range Interpretation Comments Lymphocytes # (test code = Lymphocytes 1.1 1.0-5.5 #) [facility] HospitalRnjhnanGIBXPZKELH5479-62-25 17:27:00 Test Item Value Reference Range Interpretation Comments Segs (test code = Segs) 74.8 45.0-75.0 [facility] HospitalGqlxhflAFLDULFKZA7236-08-56 17:27:00 Test Item Value Reference Range Interpretation Comments Lymphocytes (test code = Lymphocytes) 11.4 20.0-40.0 [facility] HospitalYjtmnmpSOSMHPSITA3252-32-45 17:27:00 Test Item Value Reference Range Interpretation Comments Eosinophils (test code = 1.4 See_Comment [A utomated message] The Eosinophils) system which ge nerated this result tra nsmitted reference range : <=4.0. The reference r mirela was not used to int erpret this result as normal/abnormal . [facility] HospitalImdwhumIQYORHTTLH1895-40-37 17:27:00 Test Item Value Reference Range Interpretation Comments Monocytes (test code = Monocytes) 11.4 2.0-12.0 [facility] HospitalQvacvvaXUKJGUZOABWQ9265-06-87 17:27:00 Test Item Value Reference Range Interpretation Comments AGAP (test code = AGAP) 14.7 10.0-20.0 [facility] HospitalLerurncWDMPFYGBYDEN2419-78-05 17:27:00 Test Item Value Reference Range Interpretation Comments eGFR (test code = eGFR) 70 [facility] HospitalVvovhkbLPZVZXXJJOUH2191-99-83 17:27:00 Test Item Value Reference Range Interpretation Comments BUN (test code = BUN) 16 7-22 [facility] HospitalMcfmhqqYGCNRDDOFUBO5197-37-81 17:27:00 Test Item Value Reference Range Interpretation Comments Potassium Lvl (test code = Potassium 3.7 3.5-5.1 Lvl) [facility] HospitalYnhvnekHUYMJTIGTYRO7995-51-27 17:27:00 Test Item Value Reference Range Interpretation Comments Glucose Lvl (test code = Glucose Lvl) 87 70-99 [facility] HospitalMexwvarFAQPVSIMKZVT8256-12-88 17:27:00 Test Item Value Reference Range Interpretation Comments Sodium Lvl (test code = Sodium Lvl) 139 135-145 [facility] HospitalLcjfkmpZYWDAFQBRLIN1042-53-54 17:27:00 Test Item Value Reference Range Interpretation Comments CO2 (test code = CO2) 23 24-32 [facility] HospitalDosapxaYJRVPQTIQMVR9605-65-57 17:27:00 Test Item Value Reference Range Interpretation Comments Chloride Lvl (test code = Chloride Lvl) 105 95-109 [facility] HospitalRugktlgRKGTOJNIOVIF2726-52-27 17:27:00 Test Item Value Reference Range Interpretation Comments Calcium Lvl (test code = Calcium Lvl) 8.8 8.5-10.5 [facility]hrjfzgIJBDEFBHSUDI3747-62-95 17:27:00 Test Item Value Reference Range Interpretation Comments Creatinine Lvl (test code = Creatinine 0.98 0.50-1.40 Lvl) [facility]CqocnpjSQOFIZWFHF6753-21-24 17:27:00 Test Item Value Reference Range Interpretation Comments INR (test code = INR) 1.04 1 0.85-1.17 [facility] HospitalRqfinnqVXGBNFVLCB8461-03-73 17:27:00 Test Item Value Reference Range Interpretation Comments PT (test code = PT) 13.6 s 12.0-14.7 [facility] HospitalIzehtonASTONWFJIV3547-25-50 17:27:00 Test Item Value Reference Range Interpretation Comments PTT (test code = PTT) 30.2 s 22.9-35.8 [facility] HospitalEhbbdloZNAKCSVCDJ7905-71-89 17:27:00 Test Item Value Reference Range Interpretation Comments Platelet (test code = Platelet) 227 133-450 [facility] HospitalQlqbvimHSIPDZKREB7044-31-64 17:27:00 Test Item Value Reference Range Interpretation Comments MPV (test code = MPV) 7.6 7.4-10.4 [facility] HospitalNfuzvbgNYQSZUQIYP9488-18-53 17:27:00 Test Item Value Reference Range Interpretation Comments MCH (test code = MCH) 36.6 pg 27.0-31.0 [facility] HospitalJfsbqcgCHJZTCHZKO0238-64-49 17:27:00 Test Item Value Reference Range Interpretation Comments RDW (test code = RDW) 13.1 11.5-14.5 [facility] HospitalCslhtkkPUOCQSSUXL8249-36-04 17:27:00 Test Item Value Reference Range Interpretation Comments MCHC (test code = MCHC) 34.3 32.0-36.0 [facility] HospitalExgpbyfQQJDSVTAQQ6861-45-50 17:27:00 Test Item Value Reference Range Interpretation Comments RBC (test code = RBC) 4.30 4.70-6.10 [facility] HospitalGvogzokHPFIIVNBDG4969-82-68 17:27:00 Test Item Value Reference Range Interpretation Comments Hgb (test code = Hgb) 15.7 14.0-18.0 [facility] HospitalRoyjcrgLRVFFOVUBI0018-44-82 17:27:00 Test Item Value Reference Range Interpretation Comments Hct (test code = Hct) 45.8 42.0-54.0 [facility] HospitalHkyfcxvRICRJRSIGT6411-65-90 17:27:00 Test Item Value Reference Range Interpretation Comments MCV (test code = MCV) 106.5 80.0-94.0 [facility] HospitalRoumegfJDEVKYOFQM6123-38-49 17:27:00 Test Item Value Reference Range Interpretation Comments WBC (test code = WBC) 9.6 3.7-10.4 [facility] HospitalNcuzpqkVBZDKKEIKJ4620-93-77 17:27:00 Test Item Value Reference Range Interpretation Comments Eosinophils # (test code 0.1 See_Comment [A utomated message] The = Eosinophils #) system whic h generated this result tra nsmitted reference range : <=0.5. The reference r mirela was not used to int erpret this result as normal/abnormal . [facility] HospitalQphmwjsNTPYUBZDWI7629-12-37 17:27:00 Test Item Value Reference Range Interpretation Comments Basophils # (test code 0.1 See_Comment [Aut omated message] The = Basophils #) system which generated this result tra nsmitted reference range : <=0.2. The reference r mirela was not used to int erpret this result as normal/abnormal . [facility] HospitalCqzcytyMRCOQRWXBG1334-37-42 17:27:00 Test Item Value Reference Range Interpretation Comments Macrocyte (test code = 2+ *ABN*(11/15/17 Macrocyte) 11:27 AM) [facility] HospitalWcvuonyYZDDQIYKOG8799-43-16 17:27:00 Test Item Value Reference Range Interpretation Comments Basophils (test code = 1.0 See_Comment [Aut omated message] The Basophils) system which ge nerated this result tra nsmitted reference range : <=1.0. The reference r mirela was not used to int erpret this result as normal/abnormal . [facility] HospitalYdbeecxFAHFXQQDGX6092-53-77 17:27:00 Test Item Value Reference Range Interpretation Comments Monocytes # (test code 1.1 See_Comment [Aut omated message] The = Monocytes #) system which generated this result tra nsmitted reference range : <=0.8. The reference r mirela was not used to int erpret this result as normal/abnormal . [facility] HospitalLvsngakHFHKBCXEGW5059-87-56 17:27:00 Test Item Value Reference Range Interpretation Comments Segs-Bands # (test code = Segs-Bands #) 7.2 1.5-8.1 [facility] HospitalPrvvvjtJLRTPWHPQF9173-30-47 17:27:00 Test Item Value Reference Range Interpretation Comments Lymphocytes # (test code = Lymphocytes 1.1 1.0-5.5 #) [facility] HospitalNqkedilQKNDIUCKNS1660-41-20 17:27:00 Test Item Value Reference Range Interpretation Comments Segs (test code = Segs) 74.8 45.0-75.0 [facility] HospitalUpnetloYAEPPLMANP7757-76-25 17:27:00 Test Item Value Reference Range Interpretation Comments Lymphocytes (test code = Lymphocytes) 11.4 20.0-40.0 [facility] HospitalKvhmgaoFXOPYSGEUJ6902-58-52 17:27:00 Test Item Value Reference Range Interpretation Comments Eosinophils (test code = 1.4 See_Comment [A utomated message] The Eosinophils) system which ge nerated this result tra nsmitted reference range : <=4.0. The reference r mirela was not used to int erpret this result as normal/abnormal . [facility] HospitalFcyvrxfFRFKZPEUDF5332-03-02 17:27:00 Test Item Value Reference Range Interpretation Comments Monocytes (test code = Monocytes) 11.4 2.0-12.0 [facility] HospitalMqlnkrlYZDWGOVQDOWK9775-97-98 17:27:00 Test Item Value Reference Range Interpretation Comments AGAP (test code = AGAP) 14.7 10.0-20.0 [facility] HospitalBgenkcxQFUSNZLWRQOA1344-29-36 17:27:00 Test Item Value Reference Range Interpretation Comments eGFR (test code = eGFR) 70 [facility] HospitalPnkcwbrNWOLSNJBWUXG6692-45-93 17:27:00 Test Item Value Reference Range Interpretation Comments BUN (test code = BUN) 16 7-22 [facility] HospitalPpollfnKYRRTVSHWSWI9359-77-83 17:27:00 Test Item Value Reference Range Interpretation Comments Potassium Lvl (test code = Potassium 3.7 3.5-5.1 Lvl) [facility] HospitalByidjagAXADXNPWBSCM0255-93-07 17:27:00 Test Item Value Reference Range Interpretation Comments Glucose Lvl (test code = Glucose Lvl) 87 70-99 [facility] HospitalKkcxwdtDXNLJMBSBMDD1479-92-39 17:27:00 Test Item Value Reference Range Interpretation Comments Sodium Lvl (test code = Sodium Lvl) 139 135-145 [facility] HospitalIfvcjlwUAQRMAWJJSKC0985-53-26 17:27:00 Test Item Value Reference Range Interpretation Comments CO2 (test code = CO2) 23 24-32 [facility] HospitalRpnehgrZFWHOFDFCNSI3881-70-14 17:27:00 Test Item Value Reference Range Interpretation Comments Chloride Lvl (test code = Chloride Lvl) 105 95-109 [facility] HospitalBpjoyigDMJAOAUCQAXD2362-68-89 17:27:00 Test Item Value Reference Range Interpretation Comments Calcium Lvl (test code = Calcium Lvl) 8.8 8.5-10.5 [facility] HospitalEzjvifwFCMQIBKZRQTV5482-12-36 17:27:00 Test Item Value Reference Range Interpretation Comments Creatinine Lvl (test code = Creatinine 0.98 0.50-1.40 Lvl) [facility] HospitalAtwqbucNPAYBKOUHD6446-34-86 17:27:00 Test Item Value Reference Range Interpretation Comments INR (test code = INR) 1.04 1 0.85-1.17 [facility] HospitalManeaxfBQJSQVUCCR8236-34-88 17:27:00 Test Item Value Reference Range Interpretation Comments PT (test code = PT) 13.6 s 12.0-14.7 [facility] HospitalZuugtsyUXUASBWBHJ5367-34-75 17:27:00 Test Item Value Reference Range Interpretation Comments PTT (test code = PTT) 30.2 s 22.9-35.8 [facility] HospitalOjdyadrIMBEIONHMF3351-34-96 17:27:00 Test Item Value Reference Range Interpretation Comments Platelet (test code = Platelet) 227 133-450 [facility] HospitalPftwdslBWVASFMGAZ4918-99-42 17:27:00 Test Item Value Reference Range Interpretation Comments MPV (test code = MPV) 7.6 7.4-10.4 [facility] HospitalOsocuxgNKYWFBHTMI1970-56-30 17:27:00 Test Item Value Reference Range Interpretation Comments MCH (test code = MCH) 36.6 pg 27.0-31.0 [facility] HospitalJqxuistQASABPWBXX0883-19-33 17:27:00 Test Item Value Reference Range Interpretation Comments RDW (test code = RDW) 13.1 11.5-14.5 [facility] HospitalJfisnauMGBVGOBQUJ0251-08-67 17:27:00 Test Item Value Reference Range Interpretation Comments MCHC (test code = MCHC) 34.3 32.0-36.0 [facility] HospitalSbirgfgHLULFVNWEN9794-33-36 17:27:00 Test Item Value Reference Range Interpretation Comments RBC (test code = RBC) 4.30 4.70-6.10 [facility] HospitalQeqyjizKEZWJNKEYA4382-84-04 17:27:00 Test Item Value Reference Range Interpretation Comments Hgb (test code = Hgb) 15.7 14.0-18.0 [facility] HospitalQrgpuxxALTSSMTRHY1855-08-45 17:27:00 Test Item Value Reference Range Interpretation Comments Hct (test code = Hct) 45.8 42.0-54.0 [facility] HospitalIjnqxgmZJIGMMOPRE3955-50-53 17:27:00 Test Item Value Reference Range Interpretation Comments MCV (test code = MCV) 106.5 80.0-94.0 [place] [id number] 17:27:00 Test Item Value Reference Range Interpretation Comments WBC (test code = WBC) 9.6 3.7-10.4 [facility] HospitalIrupbvwIZJLNMPLPU9583-59-31 17:27:00 Test Item Value Reference Range Interpretation Comments Eosinophils # (test code 0.1 See_Comment [A utomated message] The = Eosinophils #) system whic h generated this result tra nsmitted reference range : <=0.5. The reference r mirela was not used to int erpret this result as normal/abnormal . [facility] HospitalToupybaOTKMCPVNXA3132-48-27 17:27:00 Test Item Value Reference Range Interpretation Comments Basophils # (test code 0.1 See_Comment [Aut omated message] The = Basophils #) system which generated this result tra nsmitted reference range : <=0.2. The reference r mirela was not used to int erpret this result as normal/abnormal . [facility] HospitalVzxotmjDFJYFAZHCL3846-31-35 17:27:00 Test Item Value Reference Range Interpretation Comments Macrocyte (test code = 2+ *ABN*(11/15/17 Macrocyte) 11:27 AM) [facility] HospitalBwuugtlZILPKQOUVX4093-20-47 17:27:00 Test Item Value Reference Range Interpretation Comments Basophils (test code = 1.0 See_Comment [Aut omated message] The Basophils) system which ge nerated this result tra nsmitted reference range : <=1.0. The reference r mirela was not used to int erpret this result as normal/abnormal . [facility] HospitalXwumsrdVWOONEYKBW1969-80-38 17:27:00 Test Item Value Reference Range Interpretation Comments Monocytes # (test code 1.1 See_Comment [Aut omated message] The = Monocytes #) system which generated this result tra nsmitted reference range : <=0.8. The reference r mirela was not used to int erpret this result as normal/abnormal . [facility] HospitalYrxhmdmMCYFJFVSPP0425-25-99 17:27:00 Test Item Value Reference Range Interpretation Comments Segs-Bands # (test code = Segs-Bands #) 7.2 1.5-8.1 [facility] HospitalNlnlxybQDYRZEJUVB1058-00-78 17:27:00 Test Item Value Reference Range Interpretation Comments Lymphocytes # (test code = Lymphocytes 1.1 1.0-5.5 #) [facility] HospitalOtwoohlRISNWETKKC2483-45-39 17:27:00 Test Item Value Reference Range Interpretation Comments Segs (test code = Segs) 74.8 45.0-75.0 [facility] HospitalSgmwrhpGAFHURKEIH1103-90-35 17:27:00 Test Item Value Reference Range Interpretation Comments Lymphocytes (test code = Lymphocytes) 11.4 20.0-40.0 [facility] HospitalXxbdwpxOFHMSNJNEN4373-01-07 17:27:00 Test Item Value Reference Range Interpretation Comments Eosinophils (test code = 1.4 See_Comment [A utomated message] The Eosinophils) system which ge nerated this result tra nsmitted reference range : <=4.0. The reference r mirela was not used to int erpret this result as normal/abnormal . [facility] HospitalObjdbmcEBTWMIZJBL3820-52-24 17:27:00 Test Item Value Reference Range Interpretation Comments Monocytes (test code = Monocytes) 11.4 2.0-12.0 [facility] DDNHH3541-25-50 00:32:00 Test Item Value Reference Range Interpretation Comments Calcium Lvl (test code = Calcium Lvl) 8.1 8.5-10.5 [facility] YQLRG7712-42-76 00:32:00 Test Item Value Reference Range Interpretation Comments CO2 (test code = CO2) 23 24-32 [facility] XTBTJ9814-44-35 00:32:00 Test Item Value Reference Range Interpretation Comments Chloride Lvl (test code = Chloride Lvl) 110 95-109 [facility]2016-10-08 00:32:00 Test Item Value Reference Range Interpretation Comments Sodium Lvl (test code = Sodium Lvl) 141 135-145 [facility]2016-10-08 00:32:00 Test Item Value Reference Range Interpretation Comments BUN (test code = BUN) 11 7-22 [facility]2016-10-08 00:32:00 Test Item Value Reference Range Interpretation Comments Potassium Lvl (test code = Potassium 3.8 3.5-5.1 Lvl) [facility]2016-10-08 00:32:00 Test Item Value Reference Range Interpretation Comments Glucose Lvl (test code = Glucose Lvl) 146 70-99 [facility]2016-10-08 00:32:00 Test Item Value Reference Range Interpretation Comments eGFR (test code = eGFR) 69 [facility]2016-10-08 00:32:00 Test Item Value Reference Range Interpretation Comments Creatinine Lvl (test code = Creatinine 1.00 0.50-1.40 Lvl) [facility]2016-10-08 00:32:00 Test Item Value Reference Range Interpretation Comments AGAP (test code = AGAP) 11.8 10.0-20.0 [facility]2016-10-08 00:32:00 Test Item Value Reference Range Interpretation Comments Phosphorus (test code = Phosphorus) 2.7 2.5-4.5 [facility]2016-10-08 00:32:00 Test Item Value Reference Range Interpretation Comments Magnesium Lvl (test code = Magnesium 1.9 1.8-2.4 Lvl) [facility] HospitalVerfaalVALEMKGZXC0955-52-80 00:32:00 Test Item Value Reference Range Interpretation Comments Basophils # (test code 0.1 See_Comment [Aut omated message] The = Basophils #) system which generated this result tra nsmitted reference range : <=0.2. The reference r mirela was not used to int erpret this result as normal/abnormal . [facility] HospitalOlmowvsWCSPSAOJXY3966-19-14 00:32:00 Test Item Value Reference Range Interpretation Comments Eosinophils # (test code 0.2 See_Comment [A utomated message] The = Eosinophils #) system whic h generated this result tra nsmitted reference range : <=0.5. The reference r mirela was not used to int erpret this result as normal/abnormal . [facility] HospitalTxffgybZEVVFRBFWM2339-90-06 00:32:00 Test Item Value Reference Range Interpretation Comments Macrocyte (test code = 1+ *ABN*(07/22/16 Macrocyte) 7:32 PM) [facility] HospitalHlpxjuzLXPSDAVQOK4207-16-94 00:32:00 Test Item Value Reference Range Interpretation Comments Eosinophils (test code = 2.0 See_Comment [A utomated message] The Eosinophils) system which ge nerated this result tra nsmitted reference range : <=4.0. The reference r mirela was not used to int erpret this result as normal/abnormal . [facility] HospitalEqulcuqRXDLXEVLGZ0466-47-44 00:32:00 Test Item Value Reference Range Interpretation Comments Segs-Bands # (test code = Segs-Bands #) 7.7 1.5-8.1 [facility] HospitalNdmhhfsMRJDMRICKJ4025-39-50 00:32:00 Test Item Value Reference Range Interpretation Comments Monocytes (test code = Monocytes) 8.9 2.0-12.0 [facility] HospitalXfvdsfrDCTNDDIRFU5504-13-90 00:32:00 Test Item Value Reference Range Interpretation Comments Basophils (test code = 0.9 See_Comment [Aut omated message] The Basophils) system which ge nerated this result tra nsmitted reference range : <=1.0. The reference r mirela was not used to int erpret this result as normal/abnormal . [facility] HospitalMuefkjeTFBAIAQALD5523-18-69 00:32:00 Test Item Value Reference Range Interpretation Comments Lymphocytes (test code = Lymphocytes) 14.5 20.0-40.0 [facility] HospitalCodldzqAYXCFEHSMM0093-75-60 00:32:00 Test Item Value Reference Range Interpretation Comments Lymphocytes # (test code = Lymphocytes 1.5 1.0-5.5 #) [facility] HospitalHlrdodtMNZDCOSDGF2584-49-91 00:32:00 Test Item Value Reference Range Interpretation Comments Monocytes # (test code 0.9 See_Comment [Aut omated message] The = Monocytes #) system which generated this result tra nsmitted reference range : <=0.8. The reference r mirela was not used to int erpret this result as normal/abnormal . [facility] HospitalXaqdpahWMZXYKKYVX2322-20-68 00:32:00 Test Item Value Reference Range Interpretation Comments Segs (test code = Segs) 73.7 45.0-75.0 [facility] HospitalPyimdyrJHIALBUNDK1507-40-93 00:32:00 Test Item Value Reference Range Interpretation Comments WBC (test code = WBC) 10.5 3.7-10.4 [facility] HospitalStfbssmUNBYVTKAUP5897-90-14 00:32:00 Test Item Value Reference Range Interpretation Comments RBC (test code = RBC) 4.03 4.70-6.10 [facility] HospitalIyneotrLKBGVDQOBM9246-98-36 00:32:00 Test Item Value Reference Range Interpretation Comments Hgb (test code = Hgb) 14.4 14.0-18.0 [facility] HospitalQngekevLEJZVYUYTO9582-41-41 00:32:00 Test Item Value Reference Range Interpretation Comments Hct (test code = Hct) 42.5 42.0-54.0 [facility] HospitalYzbwwrmBWEQDDNBZK0589-26-42 00:32:00 Test Item Value Reference Range Interpretation Comments MCV (test code = MCV) 105.6 80.0-94.0 [facility] HospitalDywnvcqFKFPZTTAGB7054-92-31 00:32:00 Test Item Value Reference Range Interpretation Comments Platelet (test code = Platelet) 186 133-450 [facility] HospitalGkdywdeQGSVXDLLPQ6447-94-04 00:32:00 Test Item Value Reference Range Interpretation Comments MCH (test code = MCH) 35.9 pg 27.0-31.0 [facility] HospitalEzmcgvoHOAQICAHCG3636-76-65 00:32:00 Test Item Value Reference Range Interpretation Comments RDW (test code = RDW) 12.4 11.5-14.5 [facility] HospitalJnopjfuUEQNCNWBVP0174-40-33 00:32:00 Test Item Value Reference Range Interpretation Comments MPV (test code = MPV) 7.6 7.4-10.4 [facility] HospitalPvhthwoFOSOQAHWZJ5940-21-15 00:32:00 Test Item Value Reference Range Interpretation Comments MCHC (test code = MCHC) 34.0 32.0-36.0 [facility]2016-10-08 00:32:00 Test Item Value Reference Range Interpretation Comments Calcium Lvl (test code = Calcium Lvl) 8.1 8.5-10.5 [facility] CCKBN2347-98-83 00:32:00 Test Item Value Reference Range Interpretation Comments CO2 (test code = CO2) 23 24-32 [facility]2016-10-08 00:32:00 Test Item Value Reference Range Interpretation Comments Chloride Lvl (test code = Chloride Lvl) 110 95-109 [facility]2016-10-08 00:32:00 Test Item Value Reference Range Interpretation Comments Sodium Lvl (test code = Sodium Lvl) 141 135-145 [facility]2016-10-08 00:32:00 Test Item Value Reference Range Interpretation Comments BUN (test code = BUN) 11 7-22 [facility]2016-10-08 00:32:00 Test Item Value Reference Range Interpretation Comments Potassium Lvl (test code = Potassium 3.8 3.5-5.1 Lvl) [facility]2016-10-08 00:32:00 Test Item Value Reference Range Interpretation Comments Glucose Lvl (test code = Glucose Lvl) 146 70-99 [facility]2016-10-08 00:32:00 Test Item Value Reference Range Interpretation Comments eGFR (test code = eGFR) 69 [facility]2016-10-08 00:32:00 Test Item Value Reference Range Interpretation Comments Creatinine Lvl (test code = Creatinine 1.00 0.50-1.40 Lvl) [facility]2016-10-08 00:32:00 Test Item Value Reference Range Interpretation Comments AGAP (test code = AGAP) 11.8 10.0-20.0 [facility]2016-10-08 00:32:00 Test Item Value Reference Range Interpretation Comments Phosphorus (test code = Phosphorus) 2.7 2.5-4.5 [facility]2016-10-08 00:32:00 Test Item Value Reference Range Interpretation Comments Magnesium Lvl (test code = Magnesium 1.9 1.8-2.4 Lvl) [facility] HospitalGiicnhsMKNUNZAAJH0433-14-86 00:32:00 Test Item Value Reference Range Interpretation Comments Basophils # (test code 0.1 See_Comment [Aut omated message] The = Basophils #) system which generated this result tra nsmitted reference range : <=0.2. The reference r mirela was not used to int erpret this result as normal/abnormal . [facility] HospitalAkbnnvhDBFIERUWQR2230-00-07 00:32:00 Test Item Value Reference Range Interpretation Comments Eosinophils # (test code 0.2 See_Comment [A utomated message] The = Eosinophils #) system whic h generated this result tra nsmitted reference range : <=0.5. The reference r mirela was not used to int erpret this result as normal/abnormal . [facility] HospitalFpkovepYPKDKTDUCL5926-27-72 00:32:00 Test Item Value Reference Range Interpretation Comments Macrocyte (test code = 1+ *ABN*(07/22/16 Macrocyte) 7:32 PM) [facility] HospitalTatrjlmXNUYYEMNWG1046-03-31 00:32:00 Test Item Value Reference Range Interpretation Comments Eosinophils (test code = 2.0 See_Comment [A utomated message] The Eosinophils) system which ge nerated this result tra nsmitted reference range : <=4.0. The reference r mirela was not used to int erpret this result as normal/abnormal . [facility] HospitalEfmrjmgTUZZOJDQCZ8777-35-91 00:32:00 Test Item Value Reference Range Interpretation Comments Segs-Bands # (test code = Segs-Bands #) 7.7 1.5-8.1 [facility] HospitalWgnbbgkXFEQFIRPWZ9706-68-43 00:32:00 Test Item Value Reference Range Interpretation Comments Monocytes (test code = Monocytes) 8.9 2.0-12.0 [facility] HospitalLzvvmlcQMJVWHQIVD7839-43-02 00:32:00 Test Item Value Reference Range Interpretation Comments Basophils (test code = 0.9 See_Comment [Aut omated message] The Basophils) system which ge nerated this result tra nsmitted reference range : <=1.0. The reference r mirela was not used to int erpret this result as normal/abnormal . [facility] HospitalJokxrheLRDXMFHXGO4246-00-32 00:32:00 Test Item Value Reference Range Interpretation Comments Lymphocytes (test code = Lymphocytes) 14.5 20.0-40.0 [facility] HospitalInczkbkNRCVXPJUUS1822-97-15 00:32:00 Test Item Value Reference Range Interpretation Comments Lymphocytes # (test code = Lymphocytes 1.5 1.0-5.5 #) [facility] HospitalJfmdazsRTLPAXOSHK8466-25-51 00:32:00 Test Item Value Reference Range Interpretation Comments Monocytes # (test code 0.9 See_Comment [Aut omated message] The = Monocytes #) system which generated this result tra nsmitted reference range : <=0.8. The reference r mirela was not used to int erpret this result as normal/abnormal . [facility] HospitalAxnmukwZAKLDLNJMT5608-26-99 00:32:00 Test Item Value Reference Range Interpretation Comments Segs (test code = Segs) 73.7 45.0-75.0 [facility] HospitalRpmwysoLLPBTSUGIU7262-84-64 00:32:00 Test Item Value Reference Range Interpretation Comments WBC (test code = WBC) 10.5 3.7-10.4 [facility] HospitalGzcltfbJKHAQWIPVZ2005-31-87 00:32:00 Test Item Value Reference Range Interpretation Comments RBC (test code = RBC) 4.03 4.70-6.10 [facility] HospitalOgpbyewZHNGFXFFQI0559-55-83 00:32:00 Test Item Value Reference Range Interpretation Comments Hgb (test code = Hgb) 14.4 14.0-18.0 [facility] HospitalMhttnpnPHCXREDHRO4629-23-52 00:32:00 Test Item Value Reference Range Interpretation Comments Hct (test code = Hct) 42.5 42.0-54.0 [facility] HospitalVwxrvyqPVOHXDWTPL0958-32-12 00:32:00 Test Item Value Reference Range Interpretation Comments MCV (test code = MCV) 105.6 80.0-94.0 [facility] HospitalYgtmhtbZXQQORWNFY2276-09-07 00:32:00 Test Item Value Reference Range Interpretation Comments Platelet (test code = Platelet) 186 133-450 [facility] HospitalHglutrtTYPCPNTZZJ8555-88-73 00:32:00 Test Item Value Reference Range Interpretation Comments MCH (test code = MCH) 35.9 pg 27.0-31.0 [facility] HospitalYgibfaiXLRBVQVBAW8200-89-92 00:32:00 Test Item Value Reference Range Interpretation Comments RDW (test code = RDW) 12.4 11.5-14.5 [facility] HospitalGlmtgxmOJVLQGQDVE4718-79-74 00:32:00 Test Item Value Reference Range Interpretation Comments MPV (test code = MPV) 7.6 7.4-10.4 [facility] HospitalNwaucviRQGPBSUHJS7475-46-37 00:32:00 Test Item Value Reference Range Interpretation Comments MCHC (test code = MCHC) 34.0 32.0-36.0 [facility]2016-10-08 00:32:00 Test Item Value Reference Range Interpretation Comments Calcium Lvl (test code = Calcium Lvl) 8.1 8.5-10.5 [facility]2016-10-08 00:32:00 Test Item Value Reference Range Interpretation Comments CO2 (test code = CO2) 23 24-32 [facility]2016-10-08 00:32:00 Test Item Value Reference Range Interpretation Comments Chloride Lvl (test code = Chloride Lvl) 110 95-109 [facility]2016-10-08 00:32:00 Test Item Value Reference Range Interpretation Comments Sodium Lvl (test code = Sodium Lvl) 141 135-145 [facility]2016-10-08 00:32:00 Test Item Value Reference Range Interpretation Comments BUN (test code = BUN) 11 7-22 [facility]2016-10-08 00:32:00 Test Item Value Reference Range Interpretation Comments Potassium Lvl (test code = Potassium 3.8 3.5-5.1 Lvl) [facility]2016-10-08 00:32:00 Test Item Value Reference Range Interpretation Comments Glucose Lvl (test code = Glucose Lvl) 146 70-99 [facility]2016-10-08 00:32:00 Test Item Value Reference Range Interpretation Comments eGFR (test code = eGFR) 69 [facility]2016-10-08 00:32:00 Test Item Value Reference Range Interpretation Comments Creatinine Lvl (test code = Creatinine 1.00 0.50-1.40 Lvl) [facility]2016-10-08 00:32:00 Test Item Value Reference Range Interpretation Comments AGAP (test code = AGAP) 11.8 10.0-20.0 [facility]2016-10-08 00:32:00 Test Item Value Reference Range Interpretation Comments Phosphorus (test code = Phosphorus) 2.7 2.5-4.5 [facility]2016-10-08 00:32:00 Test Item Value Reference Range Interpretation Comments Magnesium Lvl (test code = Magnesium 1.9 1.8-2.4 Lvl) [facility]00 Test Item Value Reference Range Interpretation Comments Basophils # (test code 0.1 See_Comment [Aut omated message] The = Basophils #) system which generated this result tra nsmitted reference range : <=0.2. The reference r mirela was not used to int erpret this result as normal/abnormal . [facility]LjiyuwbWXYXYCMKIF6967-18-48 00:32:00 Test Item Value Reference Range Interpretation Comments Eosinophils # (test code 0.2 See_Comment [A utomated message] The = Eosinophils #) system whic h generated this result tra nsmitted reference range : <=0.5. The reference r mirela was not used to int erpret this result as normal/abnormal . [facility] HospitalGwbwwxrQHMHVKLZVS4355-35-99 00:32:00 Test Item Value Reference Range Interpretation Comments Macrocyte (test code = 1+ *ABN*(07/22/16 Macrocyte) 7:32 PM) [facility] HospitalGfkjpgtEMOQOVNVHA2599-51-51 00:32:00 Test Item Value Reference Range Interpretation Comments Eosinophils (test code = 2.0 See_Comment [A utomated message] The Eosinophils) system which ge nerated this result tra nsmitted reference range : <=4.0. The reference r mirela was not used to int erpret this result as normal/abnormal . [facility] HospitalVfticlcAYJTWNDDXO0814-24-09 00:32:00 Test Item Value Reference Range Interpretation Comments Segs-Bands # (test code = Segs-Bands #) 7.7 1.5-8.1 [facility] HospitalBdbczprCRYBRUPLHI5072-11-00 00:32:00 Test Item Value Reference Range Interpretation Comments Monocytes (test code = Monocytes) 8.9 2.0-12.0 [facility] HospitalVtyfxdmALIVLREMFW5170-05-20 00:32:00 Test Item Value Reference Range Interpretation Comments Basophils (test code = 0.9 See_Comment [Aut omated message] The Basophils) system which ge nerated this result tra nsmitted reference range : <=1.0. The reference r mirela was not used to int erpret this result as normal/abnormal . [facility] HospitalTphmyuoWLXECRPNLN8485-13-49 00:32:00 Test Item Value Reference Range Interpretation Comments Lymphocytes (test code = Lymphocytes) 14.5 20.0-40.0 [facility] HospitalThjmrysSCDHCBZAHB1547-47-29 00:32:00 Test Item Value Reference Range Interpretation Comments Lymphocytes # (test code = Lymphocytes 1.5 1.0-5.5 #) [facility] HospitalTiahifgWCJYEBMNTJ6912-23-32 00:32:00 Test Item Value Reference Range Interpretation Comments Monocytes # (test code 0.9 See_Comment [Aut omated message] The = Monocytes #) system which generated this result tra nsmitted reference range : <=0.8. The reference r mirela was not used to int erpret this result as normal/abnormal . [facility] HospitalTxktyrjZYQAIIZMCH9559-38-12 00:32:00 Test Item Value Reference Range Interpretation Comments Segs (test code = Segs) 73.7 45.0-75.0 [facility] HospitalBehqsalCBXJWBUUAO7556-58-95 00:32:00 Test Item Value Reference Range Interpretation Comments WBC (test code = WBC) 10.5 3.7-10.4 [facility] HospitalHchqgmhKYZMBKMILX1002-85-40 00:32:00 Test Item Value Reference Range Interpretation Comments RBC (test code = RBC) 4.03 4.70-6.10 [facility] HospitalFomhonaPOYECHYHPG7826-39-16 00:32:00 Test Item Value Reference Range Interpretation Comments Hgb (test code = Hgb) 14.4 14.0-18.0 [facility] HospitalSzpwiszDEXQHFRRSY1438-68-43 00:32:00 Test Item Value Reference Range Interpretation Comments Hct (test code = Hct) 42.5 42.0-54.0 [facility] HospitalAgmhvlzGZFEXFXZQI4705-26-43 00:32:00 Test Item Value Reference Range Interpretation Comments MCV (test code = MCV) 105.6 80.0-94.0 [facility] HospitalHzpfxcmNMMLFAFSGK7041-39-35 00:32:00 Test Item Value Reference Range Interpretation Comments Platelet (test code = Platelet) 186 133-450 [facility] HospitalSwuyoocNYXBFMKIPT8285-16-06 00:32:00 Test Item Value Reference Range Interpretation Comments MCH (test code = MCH) 35.9 pg 27.0-31.0 [facility] HospitalCilnxruRHAZNATNRM1915-50-81 00:32:00 Test Item Value Reference Range Interpretation Comments RDW (test code = RDW) 12.4 11.5-14.5 [facility] HospitalDygcofwYZHCMXABTG6494-25-19 00:32:00 Test Item Value Reference Range Interpretation Comments MPV (test code = MPV) 7.6 7.4-10.4 [facility] HospitalPdmzfnoASNOOGAOVZ0770-65-37 00:32:00 Test Item Value Reference Range Interpretation Comments MCHC (test code = MCHC) 34.0 32.0-36.0 [facility]2016-10-08 00:32:00 Test Item Value Reference Range Interpretation Comments Calcium Lvl (test code = Calcium Lvl) 8.1 8.5-10.5 [facility]2016-10-08 00:32:00 Test Item Value Reference Range Interpretation Comments CO2 (test code = CO2) 23 24-32 [facility]2016-10-08 00:32:00 Test Item Value Reference Range Interpretation Comments Chloride Lvl (test code = Chloride Lvl) 110 95-109 [facility]2016-10-08 00:32:00 Test Item Value Reference Range Interpretation Comments Sodium Lvl (test code = Sodium Lvl) 141 135-145 [facility]2016-10-08 00:32:00 Test Item Value Reference Range Interpretation Comments BUN (test code = BUN) 11 7-22 [facility]2016-10-08 00:32:00 Test Item Value Reference Range Interpretation Comments Potassium Lvl (test code = Potassium 3.8 3.5-5.1 Lvl) [facility]2016-10-08 00:32:00 Test Item Value Reference Range Interpretation Comments Glucose Lvl (test code = Glucose Lvl) 146 70-99 [facility]2016-10-08 00:32:00 Test Item Value Reference Range Interpretation Comments eGFR (test code = eGFR) 69 [facility]2016-10-08 00:32:00 Test Item Value Reference Range Interpretation Comments Creatinine Lvl (test code = Creatinine 1.00 0.50-1.40 Lvl) [facility]2016-10-08 00:32:00 Test Item Value Reference Range Interpretation Comments AGAP (test code = AGAP) 11.8 10.0-20.0 [facility]2016-10-08 00:32:00 Test Item Value Reference Range Interpretation Comments Phosphorus (test code = Phosphorus) 2.7 2.5-4.5 [facility]2016-10-08 00:32:00 Test Item Value Reference Range Interpretation Comments Magnesium Lvl (test code = Magnesium 1.9 1.8-2.4 Lvl) [facility] HospitalSlbrtjiNYOBMCVAJV3092-08-46 00:32:00 Test Item Value Reference Range Interpretation Comments Basophils # (test code 0.1 See_Comment [Aut omated message] The = Basophils #) system which generated this result tra nsmitted reference range : <=0.2. The reference r mirela was not used to int erpret this result as normal/abnormal . [facility] HospitalBdcksngYIXVCTXKYL7533-02-10 00:32:00 Test Item Value Reference Range Interpretation Comments Eosinophils # (test code 0.2 See_Comment [A utomated message] The = Eosinophils #) system whic h generated this result tra nsmitted reference range : <=0.5. The reference r mirela was not used to int erpret this result as normal/abnormal . [facility] HospitalRtiwjovGGMBVJHDBP4590-13-56 00:32:00 Test Item Value Reference Range Interpretation Comments Macrocyte (test code = 1+ *ABN*(07/22/16 Macrocyte) 7:32 PM) [facility] HospitalQrvpmlyETHZXVYJKZ3267-46-16 00:32:00 Test Item Value Reference Range Interpretation Comments Eosinophils (test code = 2.0 See_Comment [A utomated message] The Eosinophils) system which ge nerated this result tra nsmitted reference range : <=4.0. The reference r mirela was not used to int erpret this result as normal/abnormal . [facility] HospitalWoxmhhcFAZFPNWRBX9531-59-46 00:32:00 Test Item Value Reference Range Interpretation Comments Segs-Bands # (test code = Segs-Bands #) 7.7 1.5-8.1 [facility] HospitalRbbzeumSTRSMAWTGQ1574-95-47 00:32:00 Test Item Value Reference Range Interpretation Comments Monocytes (test code = Monocytes) 8.9 2.0-12.0 [facility] HospitalAuelpxmITIQIAKCLG9568-45-29 00:32:00 Test Item Value Reference Range Interpretation Comments Basophils (test code = 0.9 See_Comment [Aut omated message] The Basophils) system which ge nerated this result tra nsmitted reference range : <=1.0. The reference r mirela was not used to int erpret this result as normal/abnormal . [facility] HospitalQsdqqokAKJMPFDQGD0263-78-36 00:32:00 Test Item Value Reference Range Interpretation Comments Lymphocytes (test code = Lymphocytes) 14.5 20.0-40.0 [facility] HospitalUmdcfagPLSCVVAGIJ8114-66-38 00:32:00 Test Item Value Reference Range Interpretation Comments Lymphocytes # (test code = Lymphocytes 1.5 1.0-5.5 #) [facility] HospitalAzocoznSULPHJCVAF6177-03-24 00:32:00 Test Item Value Reference Range Interpretation Comments Monocytes # (test code 0.9 See_Comment [Aut omated message] The = Monocytes #) system which generated this result tra nsmitted reference range : <=0.8. The reference r mirela was not used to int erpret this result as normal/abnormal . [facility] HospitalLbkmbxxEONFRSKQHN9443-91-14 00:32:00 Test Item Value Reference Range Interpretation Comments Segs (test code = Segs) 73.7 45.0-75.0 [facility] HospitalKhrjuwkRQHEHQIXTG2156-88-92 00:32:00 Test Item Value Reference Range Interpretation Comments WBC (test code = WBC) 10.5 3.7-10.4 [facility] HospitalIdvrpozLBDOFSYVXZ3789-55-35 00:32:00 Test Item Value Reference Range Interpretation Comments RBC (test code = RBC) 4.03 4.70-6.10 [facility] HospitalBupuapmDRRHOFPYAJ6018-64-63 00:32:00 Test Item Value Reference Range Interpretation Comments Hgb (test code = Hgb) 14.4 14.0-18.0 [facility] HospitalLixtacxJUUPWBONDA7309-15-50 00:32:00 Test Item Value Reference Range Interpretation Comments Hct (test code = Hct) 42.5 42.0-54.0 [facility] HospitalOvqcyiyEYRKTBNPSF7221-08-58 00:32:00 Test Item Value Reference Range Interpretation Comments MCV (test code = MCV) 105.6 80.0-94.0 [facility] HospitalAalqwkxJWKAVXMAOQ8428-94-00 00:32:00 Test Item Value Reference Range Interpretation Comments Platelet (test code = Platelet) 186 133-450 [facility] HospitalYqjlirbIZXKUXSLUT2637-50-75 00:32:00 Test Item Value Reference Range Interpretation Comments MCH (test code = MCH) 35.9 pg 27.0-31.0 [facility] HospitalBkjvcxsDQCLMHCITL9240-53-71 00:32:00 Test Item Value Reference Range Interpretation Comments RDW (test code = RDW) 12.4 11.5-14.5 [facility] HospitalCkslpxdEOXGHRRYGD7262-57-93 00:32:00 Test Item Value Reference Range Interpretation Comments MPV (test code = MPV) 7.6 7.4-10.4 [facility]GybdfprBQFFCZTTFW8811-35-75 00:32:00 Test Item Value Reference Range Interpretation Comments MCHC (test code = MCHC) 34.0 32.0-36.0 [facility]2016-10-08 00:32:00 Test Item Value Reference Range Interpretation Comments Calcium Lvl (test code = Calcium Lvl) 8.1 8.5-10.5 [facility]2016-10-08 00:32:00 Test Item Value Reference Range Interpretation Comments CO2 (test code = CO2) 23 24-32 [facility]2016-10-08 00:32:00 Test Item Value Reference Range Interpretation Comments Chloride Lvl (test code = Chloride Lvl) 110 95-109 [facility]2016-10-08 00:32:00 Test Item Value Reference Range Interpretation Comments Sodium Lvl (test code = Sodium Lvl) 141 135-145 [facility]2016-10-08 00:32:00 Test Item Value Reference Range Interpretation Comments BUN (test code = BUN) 11 7-22 [facility]2016-10-08 00:32:00 Test Item Value Reference Range Interpretation Comments Potassium Lvl (test code = Potassium 3.8 3.5-5.1 Lvl) [facility]2016-10-08 00:32:00 Test Item Value Reference Range Interpretation Comments Glucose Lvl (test code = Glucose Lvl) 146 70-99 [facility]2016-10-08 00:32:00 Test Item Value Reference Range Interpretation Comments eGFR (test code = eGFR) 69 [facility]2016-10-08 00:32:00 Test Item Value Reference Range Interpretation Comments Creatinine Lvl (test code = Creatinine 1.00 0.50-1.40 Lvl) [facility]2016-10-08 00:32:00 Test Item Value Reference Range Interpretation Comments AGAP (test code = AGAP) 11.8 10.0-20.0 [facility]2016-10-08 00:32:00 Test Item Value Reference Range Interpretation Comments Phosphorus (test code = Phosphorus) 2.7 2.5-4.5 [facility]2016-10-08 00:32:00 Test Item Value Reference Range Interpretation Comments Magnesium Lvl (test code = Magnesium 1.9 1.8-2.4 Lvl) [facility] HospitalJfzbbbuAFGDSFPQHM2565-81-51 00:32:00 Test Item Value Reference Range Interpretation Comments Basophils # (test code 0.1 See_Comment [Aut omated message] The = Basophils #) system which generated this result tra nsmitted reference range : <=0.2. The reference r mirela was not used to int erpret this result as normal/abnormal . [facility] HospitalUlfqbyjXDUMKTRYNO8283-68-95 00:32:00 Test Item Value Reference Range Interpretation Comments Eosinophils # (test code 0.2 See_Comment [A utomated message] The = Eosinophils #) system whic h generated this result tra nsmitted reference range : <=0.5. The reference r mirela was not used to int erpret this result as normal/abnormal . [facility] HospitalNjswxorTWCGTPPXKZ1152-18-92 00:32:00 Test Item Value Reference Range Interpretation Comments Macrocyte (test code = 1+ *ABN*(07/22/16 Macrocyte) 7:32 PM) [facility] HospitalUrjwkgeUFKOGDQFJJ8611-39-87 00:32:00 Test Item Value Reference Range Interpretation Comments Eosinophils (test code = 2.0 See_Comment [A utomated message] The Eosinophils) system which ge nerated this result tra nsmitted reference range : <=4.0. The reference r mirela was not used to int erpret this result as normal/abnormal . [facility] HospitalZrpdznjBVHMAWAYQR5886-00-15 00:32:00 Test Item Value Reference Range Interpretation Comments Segs-Bands # (test code = Segs-Bands #) 7.7 1.5-8.1 [facility] HospitalNdkuvghNGJQNYJITI9908-17-92 00:32:00 Test Item Value Reference Range Interpretation Comments Monocytes (test code = Monocytes) 8.9 2.0-12.0 [facility] HospitalLoneqjsEXVOCDWVOL7256-94-58 00:32:00 Test Item Value Reference Range Interpretation Comments Basophils (test code = 0.9 See_Comment [Aut omated message] The Basophils) system which ge nerated this result tra nsmitted reference range : <=1.0. The reference r mirela was not used to int erpret this result as normal/abnormal . [facility] HospitalGfyduleLPRQKLXRWU0980-49-52 00:32:00 Test Item Value Reference Range Interpretation Comments Lymphocytes (test code = Lymphocytes) 14.5 20.0-40.0 [facility] HospitalShofdziRGZZCOLXGZ6938-46-39 00:32:00 Test Item Value Reference Range Interpretation Comments Lymphocytes # (test code = Lymphocytes 1.5 1.0-5.5 #) [facility] HospitalOwpsfckEYUOSVYAFW3372-93-96 00:32:00 Test Item Value Reference Range Interpretation Comments Monocytes # (test code 0.9 See_Comment [Aut omated message] The = Monocytes #) system which generated this result tra nsmitted reference range : <=0.8. The reference r mirela was not used to int erpret this result as normal/abnormal . [facility] HospitalKodrsfxKPSHAXJSKP3205-92-78 00:32:00 Test Item Value Reference Range Interpretation Comments Segs (test code = Segs) 73.7 45.0-75.0 [facility] HospitalHyoaqzxJOJTJTKBXA9387-15-78 00:32:00 Test Item Value Reference Range Interpretation Comments WBC (test code = WBC) 10.5 3.7-10.4 [facility] HospitalXapvrktBNHLGFTKHU8003-38-18 00:32:00 Test Item Value Reference Range Interpretation Comments RBC (test code = RBC) 4.03 4.70-6.10 [facility] HospitalLroivxdIARCBNTIDB6727-10-42 00:32:00 Test Item Value Reference Range Interpretation Comments Hgb (test code = Hgb) 14.4 14.0-18.0 [facility] HospitalZvxumpkRWOKDAYPTN1570-19-27 00:32:00 Test Item Value Reference Range Interpretation Comments Hct (test code = Hct) 42.5 42.0-54.0 [facility] HospitalHdaffmyASSDGQXQAE9938-99-17 00:32:00 Test Item Value Reference Range Interpretation Comments MCV (test code = MCV) 105.6 80.0-94.0 [facility] HospitalKdmzajeZTEKLOXTWH1064-99-83 00:32:00 Test Item Value Reference Range Interpretation Comments Platelet (test code = Platelet) 186 133-450 [facility] HospitalKqrzvwpFQVMWLPAQY2152-18-51 00:32:00 Test Item Value Reference Range Interpretation Comments MCH (test code = MCH) 35.9 pg 27.0-31.0 [facility] HospitalAltsodqHZVHFLZKEY2480-53-09 00:32:00 Test Item Value Reference Range Interpretation Comments RDW (test code = RDW) 12.4 11.5-14.5 [facility] HospitalMdswjddYLXIXVPFGL1197-89-21 00:32:00 Test Item Value Reference Range Interpretation Comments MPV (test code = MPV) 7.6 7.4-10.4 [facility] HospitalEylgljxFVMRIRCGRS5326-92-90 00:32:00 Test Item Value Reference Range Interpretation Comments MCHC (test code = MCHC) 34.0 32.0-36.0 [facility] History and Physical Notes Date/Time Note Provider Source 2022-09-25 Kathi Martinez DO: [facility] 21:35:00-00:00 Display: History and PhysicalAuthored Date: [facility] [id number] and Physical Primary Team Name: HOSPITALISTTeam Contact Info: please perfectserve PAULINE CHAVARRIA with questions Chief Complaint: neck pain History of Present Illness: 87 y/o male with paroxysmal afib not on AC and prostate CA on surveillance presents with trauma secondary to fall. Patient states he was using his walker to ambulate when he lost his balance and fell. Found to have C2/C3 fracture. Evaluated by NS; pending final recs. Of note, patient was admitted with trauma in June secondary to fall (left humerus and pelvic ring). Hospitalization complicated by IVONE and ileus - patient elected to go home with hospice at that time. Since then, he has felt like he has gotten stronger and no longer needs hospice. He still is enrolled with hospice but has 24 hr care and is self paying for PT/OT. Of note, noted to be COVID positive in ED. He states he tested positive 2 weeks ago and has only had nasal congestion. However, since he fell yesterday, he feels short of breath. Voiding in the ED. Denies N/V. Endorses pain in his neck and in his UEs (which is chronic). Denies paresthesias. Review of Systems: CONSTITUTIONAL: negative for fever, malaise or weight lossHEENT: negative for change in vision or hearing, sore throat or headachesCARDIOVASCULAR: negative for chest pain, palpitations, orthopnea or peripheral edemaRESPIRATORY: positive for chronic cough. negative for hemoptysisGASTROINTESTINAL: negative for D/C, hematemesis, hematochezia or melenaGENITOURINARY: negative for dysuria, hematuria or frequencyHEMATOLOGICAL: negative for easy bruising or spontaneous bleedingENDOCRINE: negative for peripheral neuropathy or intolerance to temperature changesMUSCULOSKELETAL: per HPINEUROLOGICAL: negative for dizziness, numbness or weaknessDERM: negative for rash or lesions Problem List/Past Medical History: prostate CAparoxysmal afibHTNhypothyroidCOPD Procedure/Surgical History: CRPS left sacrumL3 kyphoplastytonsillectomyhydrocelectomy Family History: significant for CAD Social History: ~99-vvox-ckxe history of tobacco use; quit 6 years ago. positive for h/o daily EtOH use but has not had a drink since June. denies illicit drug use. 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 Allergies: contrast media (iodine-based) traMADol Home Medications: Aspirin Enteric Coated 81 mg oral delayed release tablet, 81 mg= 1 tab, PO, Daily Culturelle [employer]est[employer] oral capsule, 1 cap, PO, Daily finasteride 5 mg oral tablet, 5 mg= 1 tab, PO, Daily Flomax 0.4 mg oral capsule, 0.4 mg= 1 cap, PO, Bedtime levothyroxine 100 mcg (0.1 mg) oral tablet, 100 microgram= 1 tab, PO, Daily liothyronine 5 mcg oral tablet, 5 microgram= 1 tab, PO, Daily metoprolol tartrate 25 mg oral tablet, 25 mg= 1 tab, PO, Q12H Symbicort 160/4.5 inhalation aerosol with adapter, 2 puff, INHALER, BID tramadol, 50 mg, PO, Q4-6H, PRN Physical Exam: Vitals and Measurements T: 98.6 F (Oral) HR: 91 (Apical) RR: 20 BP: 158/73 SpO2: 98% WT: 65.909 kg BMI: 23.45 GENERAL: anxious, daughter at bedside, awake, alert and oriented x 3HEENT: PERRL. EOMI. anicteric sclera. moist mucous membranesNECK: cervical collarCARDIOVASCULAR: S1 S2, tachycardicPULMONARY: clear to auscultation anteriorly, normal respiratory effortABDOMEN: soft, nontender. positive bowel soundsEXTREMITIES: no cyanosis, clubbing or edemaNEURO: motor intact (LUE limited by humerus fracture)SKIN: no rash Pertinent Labs: I have reviewed the labs Pertinent Imaging: I have reviewed the imaging Assessment/Plan: 1. C2 cervical fracture (S12.100A) pending final NS recs - will need speech eval once NS determines if patient operative or not continue cervical collar at all times. 2. Goals of care, counseling/discussion (Z71.89) I explained to patient and his daughter due to the level of his injury, he is at high risk for respiratory failure and oropharyngeal dysphagia. we discussed code status and the reasoning for him being on home hospice. I have reconsulted palliative care to re-address goals of care. Patient's daughter Addi is MPOA. 3. COVID-19 virus detected (U07.1) tested positive 2 weeks ago; asymptomatic from COVID/imaging negative - does not require isolation 4. 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 will reconsult ortho pending patient's discussion with palliative care 5. Acute pain due to trauma (G89.11) start tylenol 1000 mg Q8 and diclofenac gel to b/l shoulders. oxy prn 6. Prostate cancer (C61) on surveillance continue tamsulosin and finasteride 7. Paroxysmal A-fib (I48.0) in sinus tach - decrease metoprolol 12.5 mg Q12 since daughter reports low BPs at home with BB. not on AC per outside physician/has had multiple falls 8. HTN (hypertension) (I10) see #7 Ordered: 9. COPD without exacerbation (J44.9) no active issues - continue symbicort. duo nebs prn there are no documented episodes of hypoxia but patient with increased work of breathing which may be secondary to #1. have asked RN to wean supplemental O2 to maintain pulse ox > 90%. will monitor 10. Hypothyroid (E03.9) continue LT4 and LT3 11. Macrocytic anemia (D53.9) Hb 12 Prophylaxis SCDs Disposition pending NS recs and palliative care evaluationKathi Martinez DOElectronically Signed: 09/16/22 14:57 Notes Date/Time Note Provider Source 2022-09-22 PROCEDURE: Gastrostomy tube placement [facility] 18:28:00-00:00 Attending physician(s): Tina Urias [place] Fellow/resident physician(s): Prudence Staton M.D. Pre-procedure diagnosis: Dysphagia - C2/C3 fx Post-procedure diagnosis: Same Indication: Nutritional support Additional relevant history: None COMPARISON: None PROCEDURE SUMMARY: - Gastrostomy tube placement under fluoroscopic guidance IMPRESSION: Successful percutaneous placement of 20 [place] p ush-type gastrostomy tube. Plan: G-tube can be used after 24 hours once cleared b y IR PROCEDURE DESCRIPTION The benefits, risks, and alt ernatives to the procedure and sedation were fully discussed and informed consent was obtained. Pre-procedure assessment was performed, which documented that the patient was an appropriate candidate for moderate sedation. All vital signs were monitored and recorded by nursing staff present during the entire procedure. Total intra- service time was 30 minutes. The patient was brought into the interventional suite and a pre-procedure time- out was performed. During the time-out, the patient's name, medical record number, site of procedure, and type of procedure were verified. The patient was placed in the supine position on the procedure table. The anticipated puncture site was prepped and draped in the usual sterile fashion and maximum sterile barri er precautions were maintained throughout the pr ocedure. GASTROSTOMY TUBE PLACEMENT The liver margin was localiz ed by ultrasound. An indwelling nasogastric tube was already in place. Local anesthesia was administered with 1% lidocaine. The stomach was inflated with air and judged appro priate for access. 3 T-faste ners were placed under fluoroscopic guidance. The stomach was accessed and a wire was placed. The gastrostomy tract was dilated, the gastrostomy tube was advanced into the st omach, and intragastric posi tion was confirmed with contrast injection. The tube was capped. Gastrostomy tube placed: HEIDI Internal catheter securement: Balloon External catheter securement: Non absorbable sut ure and retention disc The patient tolerated the pr ocedure well and was discharged from the interventional suite in stable condition. Special equipment used: None Complications: No immediate complications. Estimated blood loss (mL): Less than 10 Contrast Contrast agent: Omnipaque 300 Contrast volume (mL): 5 Radiation Dose Fluoroscopy time (minutes): 1.3 Reference air kerma (mGy): 8.27 Kerma area product (uGy-m2): 223 Attestation Signer name: Jean Paul Guevara MD I attest that I was present for the entire procedure. I reviewed the stored images and agree with the report as written. 2022-09-19 EXAM: XR ABDOMEN 1 VIEW [facility] 13:13:19-00:00 DATE: 09/19/2022 12:42 Center INDICATION: - DHT placement COMPARISON: Abdominal x-ray 10/14/2022. TECHNIQUE: Limited AP view o f the abdomen for tube placement assessment. Number of images: 1. FINDINGS: Feeding tube: A feeding tube tip overlies the ga stroduodenal junction. Enteric suction tube: None. Other tubes, lines and hardw are: Partially visualized hardware screw overlying the left lower pelvis. Other: Small amount of contr ast material is seen within the stomach. Moderate stool burden. Again noted L2 vertebroplasty changes. IMPRESSION: 1. Dobbhoff feeding tube tip overlies the costochondral junction. Small amount of contrast material is seen within the stomach. 2. Other hardware as above. 3. Moderate stool burden suggests constipation. No evidence of obstruction. 2022-09-19 EXAM: FLUOROSCOPY MODIFIED BARIUM SWALLOW [facility] 10:12:00-00:00 DATE: 09/19/2022 7:30 Center INDICATION: Dysphagia - C2/C3 fx, COVID+. COMPARISON: None. TECHNIQUE: Oral barium contr ast of differing consistencies was given to the patient to assess swallowing mechanism. The study was performed in conjunction with speech pathology. Fluoroscopy time: 1 minute Fluoroscopy dose: 5.80 mGy DISCUSSION: Thin: Laryngeal penetration. Material contacts vocal folds and is not ejected. Residual remains. (PAS-5) Crossnore: Subglottic aspiratio n. Material passes below vocal folds and is not ejected from the airway despite patient attempt. (PAS-7) . Pudding: Large residue, patient was unable to sw allow. Other: None. IMPRESSION: 1. Laryngeal penetration and subglottic aspiration with thin and nectar barium consistency as described above. 2. Large residual with puddi ng barium consistency as the patient was unable to swallow. 3. Please also see detailed chart note by speech pathology. 2022-09-17 EXAM: XR ABDOMEN 1 VIEW [facility] 15:59:30-00:00 DATE: 09/17/2022 15:38 Center INDICATION: - NGT COMPARISON: September 17, 2022 1245 hours TECHNIQUE: Limited AP view o f the abdomen for tube placement assessment. Number of images: 1 FINDINGS: Transesophageal feeding tube: None visualized. Transesophageal suction tube: None visualized. Other tubes and lines: None. Moderate amount of colonic stool. IMPRESSION: Nasogastric suction tube or feeding tube not visualized in the image provided. 2022-09-17 EXAM: XR ABDOMEN 1 VIEW [facility] 12:26:11-00:00 DATE: 09/17/2022 12:28 Center INDICATION: - NGT placement COMPARISON: None. TECHNIQUE: AP view of the abdomen. FINDINGS: Large volume colonic stool. Bowel: No dilated small bowel loops. Solid organs: No organomegaly. No abnormal calci fications found. Bones: Threaded screws trans fix the pelvic fractures. L2 vertebroplasty changes noted. IMPRESSION: Nasogastric suction tube or feeding tube not visualized in the image provided. Large volume colonic stool. 2022-09-17 EXAM: XR LEFT HUMERUS 2 VIEWS [facility] 12:23:28-00:00 DATE: 09/17/2022 11:12 Center INDICATION: - fx COMPARISON: None. TECHNIQUE: AP and lateral radiographs of the hum erus IMPRESSION: * Comminuted left surgical n david of humerus fracture with apex anterior angulation and displacement is identified. There is rotational element of the head of the humerus fracture as well. * Glenohumeral alignment is satisfactory. 2022-09-17 EXAM: XR PELVIS 3 VIEWS [facility] 12:23:28-00:00 DATE: 09/17/2022 11:05 Center INDICATION: - AP, inlet, outlet. Pain COMPARISON: July 02, 2022 TECHNIQUE: AP, inlet and outlet views of the pel vis IMPRESSION: * Satisfactory pelvic ring alignment. * Posterior spinal stabiliza tion and bilateral anterior column stabilization with cannulated screws are seen as before. * No pelvic encroachment. 2022-09-17 EXAM: XR RIGHT HUMERUS 2 VIEWS [facility] 12:23:28-00:00 DATE: 09/17/2022 11:55 Center INDICATION: Pain - pain COMPARISON: None. TECHNIQUE: AP and lateral radiographs of the hum erus FINDINGS: No acute fracture or malalignment is i dentified. No soft tissue abnormality is identified. IMPRESSION: No acute abnormality. 2022-09-17 EXAM: XR LEFT ELBOW 3 VIEWS [facility] 12:23:28-00:00 DATE: 09/17/2022 11:55 Center INDICATION: - pain COMPARISON: None. TECHNIQUE: AP, lateral and oblique radiographs o f the elbow FINDINGS: No acute fracture or malalignment is i dentified. No elbow joint effusion is present. No soft tissue abnormality is identified. IMPRESSION: No acute abnormality. 2022-09-17 EXAM: XR RIGHT FOREARM 2 VIEWS [facility] 12:23:28-00:00 DATE: 09/17/2022 11:55 Center INDICATION: - pain COMPARISON: None. TECHNIQUE: AP and lateral radiographs of the for earm FINDINGS: No acute fracture or malalignment is i dentified. No soft tissue abnormality is identified. IMPRESSION: No acute abnormality. 2022-09-16 EXAM: MRI CERVICAL SPINE WITHOUT CONTRAST [facility] 11:30:00-00:00 DATE: 09/16/2022 Center INDICATION: - C2/C3 fx. COMPARISON: CT cervical spine 09/16/2022. CTA nec k 09/16/2022. TECHNIQUE: Multiplanar, mult isequence, noncontrast MR imaging of the cervical spine. IV contrast: None FINDINGS: Numbering: There are 7 cervical, nonrib-bearing vertebrae. Alignment: Exaggerated cervi geraldo lordosis and partially visualized thoracic kyphosis with mild scoliotic curvature. Trace grade 1 retrolisthesis of C3 on C4, grade 1 anterolisthesis of C4 on C5 and grade 1 anterolisthesis of C5 on C6. Bones: Redemonstration of mi nimally displaced teardrop fracture deformities involving the anteroinferior corners of C2 and C3 vertebral bodies with associated mild edema. Additionally, there is mild suyapa ma across the superior endpl ate of the C5 vertebral body which likely reflects additional mild superior endplate compression fracture without bony retropulsion into the spinal canal. Acute compression fracture d eformity involving the T2 vertebral body with associated edema however without retropulsion into the spinal canal. Spinal cord: Focal deformity and mild compression of the spinal cord at C3-C4 and C4-C5 levels without evidence of internal T2W signal intensity changes. Individual levels: Craniocervical junction: Intact. C2-C3: Patent spinal canal a nd neural foramen. Questionable disruption of the anterior longitudinal ligament at the C2-C3 level. The posterior longitudinal ligament and ligamentum flavum are intact. Min imal edema in the interspinous region at the C2- C3 level. C3-C4: Severe spinal canal s tenosis and neural foraminal narrowing secondary to posterior disc osteophyte complex, ligamentum flavum hypertrophy and facet arthropathy with degenerative grade 1 retrolist hesis of C3 on C4 and associated cord deformity. C4-C5: Severe spinal canal s tenosis secondary to posterior disc osteophyte complex with deformity of the ventral cord. Moderate facet arthropathy with moderate bilateral neural foraminal narrowing. C5-C6: Posterior disc osteop hyte complex with contact of the ventral cord and slight cord however with preserved CSF space. Moderate left and mild right neural foraminal narrowing secondary to facet arthropathy. C6-C7: There disc osteophyte complex, asymmetric to the right with contact and deformity of the ventral cord however with preserved CSF space. There is severe right and mild left neural foraminal narrowing secondary to facet arthropathy. C7-T1: Patent spinal canal and neural foramen. Other: Moderate prevertebral hematoma extending from C2 to C6 levels measuring approximately 7 mm in maximal AP diameter. There is also mild prevertebral edema in the upper thoracic spine. The normal T2W hypointense f low voids of the larger arteries in the neck are maintained. IMPRESSION: 1. Acute extension teardrop fracture deformity involving the anteroinferior corners of C2 and C3 vertebral bodies with associated partial disruption of the anterior longitudinal ligament at the C2-C3 le anuradha. The posterior longitudinal ligament and lig amentum flavum remain intact. 2. Moderate amount preverteb ral hematoma from C2 to C6 and mild perivertebral swelling at in the upper thoracic spine. 3. Superior endplate ana marv fracture deformity at C5 and T2 vertebral bodies without bony retropulsion into the spinal canal. 4. 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 Severe bilateral neural foraminal narrowing at C3-C4. 2022-09-16 EXAM: CT ANGIOGRAM OF THE BRAIN [facility] 09:50:00-00:00 EXAM: CT ANGIOGRAM OF THE NECK C enter DATE: 09/16/2022 9:47 AM INDICATION: Neck pain after trauma. Cervical spi ne fracture. COMPARISON: None TECHNIQUE: -Rapid acquisition spiral im ages of the brain and neck were obtained between the aortic arch and the cranial vertex during intravenous infusion of iodinated contrast for the purposes of CT angiography. 3-D CT angiographic images a re created using maximum intensity projection technique at the acquisition workstation. The source images are also presented for interpretation. In addition, maximum intensit y projection vessel tracking images of the cervical vasculature in multiple projections were obtained on an independent workstation and are, likewise, submitted for interpretation. [employer] software was used in the care of this patient. IV contrast: 60 mL Omnipaque 350 FINDINGS: CT imaging of the cervical s pine demonstrating the patient's fracture is not currently available for review. Nonetheless, there is a minimally displaced fracture of the anterior inferior corner of C2 and a nondisplaced fracture of the anteri or inferior aspect of C3. NECK CTA: Aortic arch: The great vesse ls originate from the aortic arch in the standard configuration. No origin stenosis is identified. The vertebral artery origins are patent bilaterally. Carotid arteries: The cervic al common carotid arteries have a normal course, caliber, and contour. There are areas of calcification at the carotid bifurcations. No stenosis of the carotid bifurcations o r internal carotid arteries is present by NASCET criteria. There is no evidence of vascular injury. Vertebral arteries:The verte bral arteries are co-dominant. The vertebral arteries have a normal course, caliber and contour. The soft tissues of the neck and remaining incid ental structures are normal. BRAIN CTA: Atherosclerotic calcificatio ns are seen in the cavernous regions. These also include the supraclinoid internal carotid arteries but are minimal in degree. There is also minimal calcification in bilateral V4 segments without associated stenosis. The anterior and posterior c irculations have an otherwise normal appearance and a standard branching pattern. No branch occlusion, vascular injury, arteritis, vascular malformation or aneurysm is identified. The deep cerebral veins and major venous sinuses are normal. IMPRESSION: 1. C2 and C3 fractures. 2. Normal CTA of the neck. 3. Intracranial atherosclerotic changes without significant stenosis. (All qualitative and quantit ative assessments of carotid bifurcation and proximal internal carotid artery stenosis are made referencing the distal internal carotid artery {NASCET criteria}.) 2022-09-16 EXAM: CT CERVICAL SPINE WITHOUT CONTRAST [facility] 03:24:04-00:00 DATE: 09/15/2022 23:48 Center INDICATION: - fall, C2/C3 fx COMPARISON: Cervical spine CT June 18, 2022 TECHNIQUE: Volumetric CT of the cervical spine is acquired without contrast. Axial, coronal and sagittal images are provided. IV contrast: None. DLP: Refer to CT protocol form [place] SECTION: ER FINDINGS: The spine is imaged from the skull base to the l evel of T4. Commodity Lead: Noncontributory. Bones: * Acute anterior-inferior co rner fracture/extension teardrop fracture of C2 with approximately 3 mm of displacement of the fracture fragment. * Acute anterior-inferior co rner fracture/extension teardrop fracture of C3 with approximately 2 mm of displacement of the fracture fragment. Multiple levels of degenerat max disc disease and facet arthrosis contribute to moderate to severe bilateral neural foraminal stenosis at C3-C4, greater on the right. Grade 1 retrolisthesis of C3 on C4. Grade 1 anterolisthesis of C5 on C6. Soft tissues: Moderate soft tissue swelling of t he prevertebral soft tissues. IMPRESSION: 1. Acute extension teardrop fracture of C2 with 3 mm of displacement. 2. Acute extension teardrop fracture of C3 with 2 mm of displacement. 2022-09-16 EXAM: CT CHEST WITH CONTRAST [facility] 03:24:04-00:00 EXAM: CT ABDOMEN AND PELVIS WITH CONTRAST Center DATE: 09/15/2022 23:48 INDICATION: - fall, C2/C3 fx COMPARISON: CT chest abdomen pelvis 06/18/2022 TECHNIQUE: Volumetric CT of the chest, abdomen and pelvis is acquired following intravenous administration of contrast. Axial, coronal and sagittal images are provided. IV contrast: Refer to MAR/technologist documenta tion Oral contrast: None. DLP: Refer to CT protocol form [place] SECTION: ER FINDINGS: Commodity Lead: Noncontributory. Lines and tubes: Pelvic scre ws are present crossing the sacrum and bilateral iliac crests, and at the bilateral iliac wings extending through the superior pubic rami. Lower Neck: Supraclavicular soft tissues are unr emarkable. Thoracic Aorta and Mediastin um: No mediastinal hematoma or thoracic aortic injury. Three-vessel coronary artery calcifications. Lungs, Pleura, Diaphragm: No pulmonary contusions. Small right and trace left pleural effusions, with compressive atelectasis of the bilateral lower lobes. No pleural effusion or pneumothorax. No diaphragmatic injury. Liver and biliary tree: Segm ent 4A simple cyst is present. No injury. No biliary abnormality. Gallbladder: Normal. No CT evidence of gallstone s. No injury. Pancreas: Normal. No injury. Spleen: Normal. No injury. Adrenals: Normal. No injury. Kidneys and ureters: Several small simple cysts bilaterally. No injury. Bladder: Small calcified lik sarah stones in the bladder measures 0.6 cm and 0.5 cm (series 8 image 70). Similar small diverticulum in the right bladder wall, now with a small 0.6 cm stone. No injury. Reproductive organs: No inju ry. Prostatomegaly and prostatic calcifications are similar to prior. Gastrointestinal tract: Large volume stool burde n. No bowel injury. Peritoneum and retroperitoneum: No fluid collect ions or free air. Lymph nodes: Normal. Vasculature: No vascular injury. Spine/ Bones: Please see same-day CT C-spine for cervical spine findings. Similar chronic superior endplate compression de formities at T2 and T5. Similar chronic T-type fractures of the T12 and L1 vertebral bodies. Similar appearance of kyphop lasty changes of the L2 vertebral body, with a small leak of cement in the L1-L2 disc space. Similar chronic superior endplate compression de formity of L4. Similar diffuse osseous demineralization. Similar chronic nondisplaced fractures of the right lateral fourth through ninth ribs and left lateral fifth through sixth ribs. Similar chronic nonunited comminuted and displaced left humeral neck fracture. Subacute bilateral inferior pubic rami fractures and pubic body fractures extending into the superior pubic rami, status post screw fixation extending through the iliac wings and through the bilateral s uperior pubic rami into the pubic body bilateral ly. Subacute nondisplaced left s acral ala fracture of the zone 2, status post fixation. Chronic comminuted fracture of the sternal body. Soft tissues: No significant soft tissue contusion. The previously seen left pelvic sidewall hematoma has largely resolved. Small bilateral fat-containing inguinal hernias. IMPRESSION: 1. No acute traumatic injury identified in the c hest/abdomen/pelvis. 2. Numerous chronic and suba cute fractures are described above. Status post surgical fixation of the subacute bilateral pubic fractures and left sacral ala fracture. 3. Increased calcified stone s within the bladder, including a 0.6 cm stone now in the small right bladder diverticulum. 4. Small right and trace lef t pleural effusion with compressive atelectasis of the bilateral lower lobes, increased since prior. 5. Please see same-day CT C-spine for cervical s pine findings. 2022-09-16 EXAM: CT BRAIN WITHOUT CONTRAST [facility] 03:24:04-00:00 DATE: 09/16/2022 Center INDICATION: - fall, C2/C3 fx. COMPARISON: CT brain June 18, 2022 TECHNIQUE: Axial CT images o f the brain were obtained. Sagittal and coronal reformats. IV contrast: None DLP: Refer to CT protocol form FINDINGS: There is no edema, hemorrhag e, mass lesion or other acute intracranial abnormality. Periventricular white matter hypoattenuation is nonspecific but likely represents moderately advanced chronic microvascular ischemic changes. The ventricles and sulci are enlarged from chronic brain parenchymal volume loss. The skull base, calvarium, a nd included facial bones are unremarkable. The paranasal sinuses are predominantly clear. Bilateral lens extractions. IMPRESSION: 1. No acute intracranial abnormality. 2. Chronic brain parenchymal volume loss and moderate microvascular ischemic changes. 2022-09-16 EXAM: XR RIGHT SHOULDER 3 VIEWS [facility] 02:40:00-00:00 DATE: 09/16/2022 at 0245 hours Ce nter INDICATION: - fall shoulder pain COMPARISON: None. TECHNIQUE: 3 views of the shoulder FINDINGS: No acute fracture or malalignment is i dentified. No soft tissue abnormality is identified. The renee isabel are demineralized. IMPRESSION: No acute abnormality. [place] SECTION: ER 2022-09-16 EXAM: XR CHEST [address] [facility] 02:40:00-00:00 DATE: 09/16/2022 0:01 Center INDICATION: - fall shoulder pain COMPARISON: Chest [address] chest abdomen pe lvis 06/18/2022. [place] SECTION: ER TECHNIQUE: AP supine chest. FINDINGS: Lines, tubes and hardware: None. Lungs and pleura: Low lung v olumes are present, with bibasilar subsegmental atelectasis. The costophrenic sulci are sharp without effusion. No pneumothorax is identified within the limitations of this supine radiograph. Heart and mediastinum: The h eart size is normal. Aortic arch calcifications. The mediastinal contours are normal. Bones and soft tissues: Plea se see same-day dedicated left shoulder x-ray for description of humeral fracture. IMPRESSION: 1. Low lung volumes with bibasilar subsegmental atelectasis. 2. Please see dedicated left shoulder x-ray for description of humerus fracture. 2022-09-16 EXAM: XR LEFT SHOULDER 3 VIEWS [facility] 02:40:00-00:00 DATE: 09/16/2022 at 0242 hours Ce nter INDICATION: - fall shoulder pain COMPARISON: Shoulder radiograph June 17. TECHNIQUE: 3 views of the shoulder FINDINGS: Chronic nonunited left humeral neck fracture, with medial and proximal displacement of the humeral shaft. There is heterotopic ossification/early callus adjacent to the proximal humeral shaft. Vascular calcifications are present. Otherwise no soft tissue abnormality is identified. IMPRESSION: Chronic nonunited left humeral neck fracture. [place] SECTION: ER 2022-07-02 EXAM: XR ABDOMEN 1 VIEW [facility] 04:07:00-00:00 DATE: 07/02/2022 3:21 Center INDICATION: - ileus ADDITIONAL INFORMATION: None. COMPARISON: [facility] 07/01/2022 TECHNIQUE: Single frontal view of the abdomen. FINDINGS: Lines and tubes: Visualized NG tube with tip overlying the likely region of the proximal to mid gastric body and sidehole appearing below the GE junction. Pelvic screw fixation. Lower thorax: Elevation of r ight hemidiaphragm. Retrocardiac opacities with left basilar atelectasis. Bowel: Persistent generalize d gaseous distention of the colon and small bowel loops with slight increased gaseous distention of small bowel loops. Rectal gas present. Solid organs: No abnormal mass or organomegaly s een. Calcifications: No abnormal calcifications found . Bones: Unchanged. Kyphoplasty changes of the mid lumbar spine. IMPRESSION: * Persistent generalized gas eous distention of the colon with slight increased gaseous distention of the small bowel loops with rectal gas suggest generalized ileus. * Continue follow-up. 2022-07-02 EXAM: XR CHEST [address] [facility] 03:30:00-00:00 DATE: 07/02/2022 3:09 Center INDICATION: - hypoxia COMPARISON: Chest x-ray dated July 01, 2022 TECHNIQUE: AP chest, portable radiograph IMPRESSION: 1. Right-sided PICC line tip superimposed over cavoatrial junction. Gastric suction tube is stable in position. 2. Cardiomediastinal silhoue tte is enlarged, unchanged. Vascular calcifications are seen in the aortic arch. 3. Prominent interstitial ma rkings suggestive of interstitial edema. Bilateral lower lung zone subsegmental atelectasis are noted. Bilateral small pleural effusion. No perceptible pneumothorax. 4. Osseous structures are un changed with degenerative changes in the thoracic spine. 2022-07-01 EXAM: XR CHEST [address] [facility] 13:50:00-00:00 DATE: 07/01/2022 13:31 Center INDICATION: Line Placement - Chest 1 view for li ne placement COMPARISON: 06/30/2022 TECHNIQUE: AP chest IMPRESSION: Interval placement of right PICC it is tip projecting over the upper right atrium. Gastric tube has its tip over the gastric fundus. Stable cardiomediastinal silhouette. Calcifications in the aortic kno b. Decreased lung volumes wi th prominence of interstitial markings which could represent subsegmental atelectasis with or without superimposed pneumonia, aspiration or dependent edema. Bibasilar atelect asis with possible super imp osed consolidation. No definitive pleural effusions No pneumothorax in this portable radiograph. Osseous structures are unchanged. 2022-07-01 EXAM: XR [facility]BDOMEN [facility] [facility] 06:06:00-00:00 DATE: 07/01/2022 5:46 Center INDICATION: - eval for ileus ADDITIONAL INFORMATION: None. COMPARISON: 06/30/2022 TECHNIQUE: AP abdomen. FINDINGS: Lines, tubes and hardware: A gastric suction tube tip and side port overlie the stomach. Metallic screw fixation hardware in the pelvis. Lower thorax: Unremarkable where visible. Abdomen and bowel: Mild gase ous distention of small and large bowel loops with no abnormal dilatation, shows interval improvement since prior radiograph Bones and soft tissues: Stab le appearance of multilevel compression deformity of the lower thoracic and lumbar spine and vertebral augmentation at the level of L2. Status post ORIF of pelvis. No acute abnormality. IMPRESSION: 1. Improving ileus. 2. Hardware as above. 2022-06-30 EXAM: XR ABDOMEN 1 VIEW [facility] 02:14:38-00:00 DATE: 06/30/2022 1:37 Center INDICATION: Abdominal pain, acute - ileus TECHNIQUE: AP view of the abdomen. FINDINGS: Compared with June 29, 2022 There are stable orthopedic screws in the pelvis . An NG tube is in good position. There is distention of multi ple loops of large and small bowel. Some small bowel loops are slightly dilated measuring up to 3.1 cm. The loops of colon appear grossly normal in diameter. IMPRESSION: 1. Slight interval improvement with less Distention. Some small bowel loops remain dilate d suggesting continued ileus. 2022-06-30 EXAM: XR CHEST [address] [facility] 02:14:38-00:00 DATE: 06/30/2022 1:37 Center INDICATION: Shallow breathing - ileus COMPARISON: Chest x-ray dated 2022 TECHNIQUE: AP chest, portable radiograph IMPRESSION: 1. Interval placement of gas tric suction tube with the tip at the level of gastric fundus advancement is recommended. 2. Cardiomediastinal silhoue tte is enlarged, unchanged. Vascular calcific ossifications are seen in the aortic arch. 3. Scattered subsegmental at electasis are seen in the lungs. No parenchymal consolidation. I lateral trace pleural effusion cannot be excluded. No perceptible pneumothorax. 4. Osseous structures are un changed. Chronic compression deformities in several thoracic vertebra. 2022-06-29 EXAM: XR ABDOMEN 1 VIEW [facility] 10:36:44-00:00 DATE: 06/29/2022 9:59 Center INDICATION: - Abd distention ADDITIONAL INFORMATION: None. COMPARISON: KUB 06/29/2022 at 0806 hours TECHNIQUE: Single frontal view of the abdomen. FINDINGS: Lines and tubes: NG tube with tip projecting over the gastric fundus with sidehole appearing below the GE junction. Pelvic fixation hardware partially seen. Lower thorax: Bibasilar atelectasis. Elevation o f right hemidiaphragm. Bowel: Mild gaseous distention of stomach. Persistent generalized gaseo us distention of the colon and multiple small bowel loops. Solid organs: No abnormal mass or organomegaly s een. Calcifications: No abnormal calcifications found . Bones: Unchanged. Kyphoplasty changes. IMPRESSION: * NG tube as above. * Persistent gaseous distent ion of the colon and multiple small bowel loops suggestive of generalized ileus. * Continue follow-up. 2022-06-29 EXAM: XR ABDOMEN 1 VIEW [facility] 08:04:31-00:00 DATE: 06/29/2022 7:00 Center INDICATION: - f/u ileus ADDITIONAL INFORMATION: None. COMPARISON: KUB 06/28/2022 at 0920 hours TECHNIQUE: Single frontal view of the abdomen. FINDINGS: Lines and tubes: Redemonstrated pelvic hardware. Lower thorax: Bibasilar atelectasis. Bowel: Persistent generalize d gaseous distention of the colon and small bowel loops Solid organs: No abnormal mass or organomegaly s een. Calcifications: No abnormal calcifications found . Bones: Unchanged. Kyphoplast y changes in the mid lumbar spine with compression deformities. . Pelvic ring fractures with surgical hardware fix ation. IMPRESSION: * Persistent generalized gas eous distention of the colon and small bowel loops may represent diffuse ileus. * Recommend follow-up. 2022-06-28 EXAM: XR ABDOMEN 1 VIEW [facility] 09:13:00-00:00 DATE: 06/28/2022 8:23 Center INDICATION: - distension ADDITIONAL INFORMATION: Chest x-ray 2022 at 0903 hours COMPARISON: None. TECHNIQUE: AP abdomen. FINDINGS: Lines, tubes and hardware: None. Lower thorax: Unremarkable where visible. Abdomen and bowel: Gaseous d istention of the small bowel, measuring up to 4.5 cm. Gaseous distention of the colon measuring up to 9.8 cm. Bones and soft tissues: Orth opedic surgical hardware in the pelvis. Stable compression deformities of the vertebral bodies with severe osteopenia and vertebroplasty changes. IMPRESSION: 1. Diffuse colonic and small bowel ileus. 2022-06-25 EXAM: CT PELVIS WITHOUT CONTRAST [facility] 12:23:52-00:00 EXAM: 3D RECONSTRUCTIONS Center DATE: 06/25/2022 at 1229 hours INDICATION: Fractures - f/u s/p ORIF pelvis COMPARISON: 06/18/2022 TECHNIQUE: Volumetric CT of the pelvis is acquired without contrast. Axial, coronal and sagittal images are provided. 3D volume-rendered reconstructions are created at the acquisition workstation. IV contrast: None. DLP: Refer to CT protocol form FINDINGS: Commodity Lead: Noncontributory Bones: There has been interi m closed reduction and percutaneous screw fixation of the pelvic ring fractures, which are in satisfactory alignment post- operatively. No hardware complication is identified. No new or superimposed bony abnormality is identified. No pubic symphysis or sacroiliac joint diastasis. Superior endplate deformity at L4, generalized decreased bone mineralization are unchanged Intrapelvic soft tissues: Pr ostatomegaly impinges upon the bladder base, with dependent bladder calculi again noted. Marked stranding surrounding the urinary bladder in addition to bladder wall thickeni ng is no longer evident. Tin y focus of embedded dependent air is consistent with recent catheterization. No intrapelvic collection. Arterial vascular calcifications are present. Surrounding soft tissues: Ex pected mild postoperative subcutaneous emphysema at the percutaneous access sites. Mild, generalized subcutaneous edema is present. IMPRESSION: 1. Satisfactory alignment of the pelvic ring fractures following closed reduction and percutaneous screw fixation. No complication identified. 2. Superior endplate deformi ty at L4 unchanged from the recent prior, and of uncertain age 2022 EXAM: XR CHEST [address] [facility] 08:49:00-00:00 DATE: 2022 7:55 Center INDICATION: - hypoxia COMPARISON: Chest x-ray dated June 18, 2022 TECHNIQUE: AP chest, portable radiograph IMPRESSION: 1. Cardiomediastinal silhoue tte is normal in size and contour. Vascular calcifications are seen in the aortic arch. 2. Low lung volumes causing vascular crowding. Bibasilar subsegmental atelectasis. Bilateral trace pleural effusion cannot be excluded. No perceptible pneumothorax. 3. Several chronic compressi on deformities in the visualized vertebra are noted. Vertebroplasty changes are seen in L1 vertebra. No acute osseous abnormality. 4. Gaseous distention of the colonic segments is noted. 2022-06-20 EXAM: XR LUMBAR SPINE 2 VIEWS [facility] 11:27:03-00:00 DATE: 06/20/2022 7:00 Center INDICATION: - upright in brace include to T10 pa in COMPARISON: CT from the previous day TECHNIQUE: AP and lateral radiographs of the lum bar spine IMPRESSION: * No significant changes since the previous exam ination. * Limited detail of previously suspected fractur es involving the T12 and L1. * Chronic wedge compression deformities of multiple levels are unchanged from before. * No evidence of listhesis. * Detail is better seen on previous CT. 2022-06-18 EXAM: X-RAY CYSTOGRAM [facility] 23:16:00-00:00 DATE: 06/18/2022 17:42 Center INDICATION: - Rule out bladd er injury, refusing CT cystogram. Needs premedication. ADDITIONAL INFORMATION: None. COMPARISON: CT 06/18/2022 TECHNIQUE: Approximately 375 cc of Cysto-Conray II was infused through the patient's existing Yusuf catheter. AP and post void radiographs were obtained. DISCUSSION: Urinary bladder: Bladder con tours are trabeculated. No extravasated contrast is identified during filling or following voiding. No significant post void residual. IMPRESSION: 1. No bladder leak identified. 2. Trabeculated bladder wall , which may indicate sequelae of chronic outlet obstruction. 2022-06-18 EXAM: CT CHEST WITH CONTRAST [facility] 08:14:18-00:00 EXAM: CT ABDOMEN AND PELVIS WITH CONTRAST Center DATE: 06/18/2022 6:18 INDICATION: - fall with hip pain COMPARISON: CT pelvis withou t contrast from June 17, 2022 at 1925, spine radiograph from August 05, 2016 TECHNIQUE: Volumetric CT of the chest, abdomen and pelvis is acquired following intravenous administration of contrast. Axial, coronal and sagittal images are provided. IV contrast: Refer to MAR/technologist documenta tion Oral contrast: None. DLP: Refer to CT protocol form [place] SECTION: ER FINDINGS: Commodity Lead: Noncontributory. Lines and tubes: None. Lower Neck: Supraclavicular soft tissues are unr emarkable. Thoracic Aorta and Mediastin um: No mediastinal hematoma or thoracic aortic injury. Normal heart and pericardium. Multivessel coronary artery calcifications. Lungs, Pleura, Diaphragm: No pulmonary contusions. Mild dependent subsegmental atelectasis are present bilaterally. No pleural effusion or pneumothorax. No diaphragmatic injury. Liver and biliary tree: No i njury. No biliary abnormality. 1.8 cm round hypodensity in the anterior portion of the ligamentum teres fissure, in change in attenuation in all 3 phases, suggesting a cyst. Gallbladder: Distended, with a punctate dependent stone (image 113 series 6) however no surrounding inflammatory changes or wall abnormalities are present. Pancreas: Normal. No injury. Spleen: Normal. No injury. Adrenals: Normal. No injury. Kidneys and ureters: No inju ry. Bilateral round hypodensities up to 1.5 cm are present. 0.6 exophytic hypodensity in the inferior pole of the left kidney has thickened enhancing wall, however too small to properly characterize. Bladder: Mild circumferentia l thickening of the urinary bladder is noted along with multiple dependent urinary bladder stones. Small diverticulum in the right lateral urinary bladder wall is present. No definite evidence of injury. Reproductive organs: Prostatomegaly. Gastrointestinal tract: Unin flamed diverticuli are present in the colon.. No bowel injury. Peritoneum and retroperitone um: No fluid collections or free air. Trace stranding in the Retzius space and along the pelvic sidewall is noted. Lymph nodes: Normal. Vasculature: No vascular inj ury. Extensive vascular calcifications of the aorta and its branches. Spine/ Bones: The bones are diffusely and severe ly demineralized. Chronic appearing wedge compression deformity is noted at T2 and T5. Superior and inferior endpla te compression deformity is noted at T12 and L1, age indeterminate. There is superior endplate a nd anterior cortex focal disruption at T12 (image 1 2 and image 99, series 9 respectively), worrisome for acute injury Kyphoplasty changes of the L 2 vertebral body is present with small leak of cement in the L1-L2 disc space. 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 Transverse fracture in the superior portion of t he sternum body. Acute right humerus surgical neck fracture is noted with impaction and anterior and medial displacement of the distal dominant fracture fragment. Bilateral comminuted pubic b crystal fractures extending into the bilateral superior pubic rami as well as bilateral inferior pubic rami fractures, comminuted and displaced on the left side, are seen without significant interval change. Left nondisplaced sacral ala fracture extending into the zone 2 at S2-S4. Soft tissues: Interval decre ase in size of left pelvic sidewall hematoma and hematoma in the prevesical space. IMPRESSION: 1. Left lateral compression type I pelvic injury with interval improvement of left pelvic sidewall and prevesical space hematomas. 2. Multilevel vertebral body wedge compression deformities with suspicion of possible acute fractures at T12 and L4 (AO spine classification type A1). 3. Minimally displaced trans verse left sternal body fracture, without associated hematoma. 4. Left humeral neck fracture. 5. Mild circumferential wall thickening with bladder diverticula and intraluminal stones, in the presence of prostatomegaly may be related to outlet obstruction. Superimposed cystitis or underlying blad alessandra injury cannot be exclude d. Evaluation for bladder injury is limited due to incomplete bladder filling. If clinical concern persists, please proceed with cystogram. 2022-06-18 EXAM: XR LEFT HIP 2 VIEW AND AP PELVIS [facility] 05:20:00-00:00 EXAM: XR LEFT FEMUR 2 VIEWS Cent er EXAM: XR LEFT KNEE 3 VIEWS DATE: 06/18/2022 4:31 INDICATION: - pain s/p trauma COMPARISON: Pelvic CT performed on 06/17/2022 TECHNIQUE: AP pelvis, 2 view hip, 2 views of the femur, 3 views of the knee FINDINGS: Pelvis: Fractures of the pub ic bodies, superior pubic rami, and inferior pubic rami, bilaterally. The left sacral fracture is better evaluated on the CT performed on 06/17/2022 Hip/Femur: No acute fracture or malalignment is identified. Knee: No acute fracture or m alalignment is identified. No knee joint effusion is present. Soft tissues: No soft tissue abnormality is identified. Vascular calcifications. IMPRESSION: Fractures of the pubic bodies, superior pubic rami, and inferior pubic rami, bilaterally. The left sacral fracture is better evaluated on the CT performed on 06/17/2022 2022-06-18 EXAM: XR LEFT HIP 2 VIEW AND AP PELVIS [facility] 05:20:00-00:00 EXAM: XR LEFT FEMUR 2 VIEWS Cent er EXAM: XR LEFT KNEE 3 VIEWS DATE: 06/18/2022 4:31 INDICATION: - pain s/p trauma COMPARISON: Pelvic CT performed on 06/17/2022 TECHNIQUE: AP pelvis, 2 view hip, 2 views of the femur, 3 views of the knee FINDINGS: Pelvis: Fractures of the pub ic bodies, superior pubic rami, and inferior pubic rami, bilaterally. The left sacral fracture is better evaluated on the CT performed on 06/17/2022 Hip/Femur: No acute fracture or malalignment is identified. Knee: No acute fracture or m alalignment is identified. No knee joint effusion is present. Soft tissues: No soft tissue abnormality is identified. Vascular calcifications. IMPRESSION: Fractures of the pubic bodies, superior pubic rami, and inferior pubic rami, bilaterally. The left sacral fracture is better evaluated on the CT performed on 06/17/2022 2022-06-18 EXAM: XR LEFT HIP 2 VIEW AND AP PELVIS [facility] 05:20:00-00:00 EXAM: XR LEFT FEMUR 2 VIEWS Cent er EXAM: XR LEFT KNEE 3 VIEWS DATE: 06/18/2022 4:31 INDICATION: - pain s/p trauma COMPARISON: Pelvic CT performed on 06/17/2022 TECHNIQUE: AP pelvis, 2 view hip, 2 views of the femur, 3 views of the knee FINDINGS: Pelvis: Fractures of the pub ic bodies, superior pubic rami, and inferior pubic rami, bilaterally. The left sacral fracture is better evaluated on the CT performed on 06/17/2022 Hip/Femur: No acute fracture or malalignment is identified. Knee: No acute fracture or m alalignment is identified. No knee joint effusion is present. Soft tissues: No soft tissue abnormality is identified. Vascular calcifications. IMPRESSION: Fractures of the pubic bodies, superior pubic rami, and inferior pubic rami, bilaterally. The left sacral fracture is better evaluated on the CT performed on 06/17/2022 2022-06-18 EXAM: CT CERVICAL SPINE WITHOUT CONTRAST [facility] 03:45:27-00:00 DATE: 06/18/2022 3:12 Center INDICATION: - Pain post trauma COMPARISON: None. TECHNIQUE: Volumetric CT of the cervical spine is acquired without contrast. Axial, coronal and sagittal images are provided. IV contrast: None. DLP: Refer to CT protocol form [place] SECTION: ER FINDINGS: The spine is imaged from the skull base to the l evel of T2 Commodity Lead: Noncontributory Bones: No acute fracture or malalignment is identified. Multilevel degenerative changes of the cervical spine. Minimal anterior listhesis of C5 on C6 retrolisthesis of C3 on C4. Mild spinal canal stenosis at C3-4. Soft tissues: No soft tissue abnormality is iden tified. IMPRESSION: No acute cervical spine fracture or traumatic malalignment. 2022-06-18 EXAM: CT HEAD WITHOUT CONTRAST [facility] 03:45:27-00:00 DATE: 06/18/2022 3:12 Center INDICATION: - Pain post trauma. TECHNIQUE: Multiple axial im ages were obtained through the head from vertex to the skull base. Axial bone algorithm reconstruction images are provided. COMPARISON: None. FINDINGS: No acute intracranial hemorr julianne is identified. The ventricles, sulci, and cisterns are prominent in size in keeping with parenchymal volume loss. No mass effect or midline shift. The shaw-white matter differentiation is maintained. No pathologic ext ra axial fluid is identified. Scattered and confluent hypo densities in the periventricular and subcortical white matter, favored to represent chronic small vessel ischemic changes. The visualized paranasal sin uses are predominantly clear. No mastoid effusion is identified. The bony calvarium is intact. IMPRESSION: 1. No acute intracranial abnormality. 2. Parenchymal volume loss and chronic small ves fide ischemic changes UT SECTION: Neuro 2022-06-18 EXAM: XR LEFT ELBOW 3 VIEWS [facility] 03:30:00-00:00 EXAM: XR LEFT HUMERUS 2 VIEWS nter DATE: 06/18/2022 3:13 INDICATION: - Pain post trauma COMPARISON: None. TECHNIQUE: 3 views of the elbow, 2 views of the humerus FINDINGS: Elbow: No acute fracture or malalignment is identified. No elbow joint effusion is present. Humerus: Fracture Of the proximal left humerus i nvolving the surgical neck. Soft tissues: Soft tissue swelling is noted in t he region of fracture. IMPRESSION: Fracture of the proximal lef t humerus involving the surgical neck. 2022-06-18 EXAM: XR CHEST [address] [facility] 03:30:00-00:00 DATE: 06/18/2022 3:12 Center INDICATION: - chest pain COMPARISON: None. TECHNIQUE: AP chest. FINDINGS: Lines, tubes and hardware: None. Lungs and pleura: Senescent lung changes. The lungs are clear. The costophrenic sulci are sharp without effusion. Heart and mediastinum: The h eart size is normal. The mediastinal contours are normal. Atherosclerotic calcifications of the thoracic aorta. Bones and soft tissues: Frac ture of the proximal left humerus involving the surgical neck. Multilevel degenerative changes of the thoracic spine. IMPRESSION: 1. No acute cardiopulmonary process. 2. Fracture of the proximal left humerus involvi ng the surgical neck. 2022-06-18 EXAM: XR LEFT ELBOW 3 VIEWS [facility] 03:30:00-00:00 EXAM: XR LEFT HUMERUS 2 VIEWS Ce nter DATE: 06/18/2022 3:13 INDICATION: - Pain post trauma COMPARISON: None. TECHNIQUE: 3 views of the elbow, 2 views of the humerus FINDINGS: Elbow: No acute fracture or malalignment is identified. No elbow joint effusion is present. Humerus: Fracture Of the proximal left humerus i nvolving the surgical neck. Soft tissues: Soft tissue swelling is noted in t he region of fracture. IMPRESSION: Fracture of the proximal lef t humerus involving the surgical neck. 2022-06-18 EXAM: CT PELVIS WITHOUT CONTRAST [facility] 03:22:00-00:00 EXAM: 3D RECONSTRUCTIONS Center DATE: 06/18/2022 3:27 INDICATION: - fall COMPARISON: None. TECHNIQUE: Volumetric CT of the pelvis is acquired without contrast. Axial, coronal and sagittal images are provided. 3D volume-rendered reconstructions are created at the acquisition workstation. IV contrast: None. DLP: Refer to CT protocol form FINDINGS: Commodity Lead: Noncontributory Bones: Fractures are noted of the p ubic bodies, bilaterally with extension into the superior pubic rami. Additionally there are bilateral inferior pubic rami fractures. Additionally there is a left sacral frac ture involving S1 (zone 1), S2, S3, and S4 (zone 2). Decreased mineralization of the bones of the pelvis. Soft tissues: Left pelvic si dewall hematoma as well as hematoma in the extraperitoneal space/space or Retzius. The urinary bladder is mildly deformed which may be related to compression by the adjacent hematoma. Bladder injury is not excluded. Additionally, there are small bladder diverticula as well as mild thickening of the urinary bladder. Multiple urinary bladder stones are present. Hematoma exten ds of the extraperitoneal sp garrick just deep to the left pericolic gutter. Colonic diverticulosis. Vascular calcifications are present. IMPRESSION: Left lateral compression type I pelvic injury as described above. Left pelvic sidewall hematom a and extraperitoneal hemorrhage as described above. Bladder wall thickening whic h may be related to underdistention, cystitis or bladder injury. Multiple urinary bladder diverticula and multipl e bladder stones are present. 2017-11-16 EXAM: Lumbar spine [facility] 10:45:00-00:00 HISTORY: Compression fracture L2. Kyphoplasty. COMPARISON: None TECHNIQUE: 4 intraoperative images. Fluoroscopy time 1 minute 52 seconds. Dose 29.6 FINDINGS: Vertebroplasty of L2. SL 13 2016-08-05 Thoracic spine AP and lateral [facility] 11:52:00-00:00 COMPARISON: Outside CT exam from 07/22/2016 is partially available. DISCUSSION: Better seen on t he outside CT exam there is mild compression deformity of the C7 vertebral body which was possibly acute to subacute based on T2 signal MRI. Additionally, there is mild compr ession deformity of the T4 v ertebral body which is possibly worsened. The corresponding MRI images cannot be currently viewed. There is generalized osteopenia. There are bridging osteophytes in the mid thoracic spine suggesting di ffuse idiopathic skeletal hyperostosis with moderate degenerative change, without evidence of significant stenosis on the CT. There is mild S-shaped curvature of the spine.Th e pedicles are grossly intac t. If clinical concern persists may consider further evaluation with CT or MRI of the thoracic spine. IMPRESSION: 1. Prior exams are only part ially available which limits definitive diagnosis. There is probably acute to subacute mild compression deformity of the C7 vertebral body. Possible slight worsening of mild to moderate compression deformity of T4 vertebra l body. 2. Osteopenia, thoracic DISH, and moderate degen erative change. 2016-08-05 EXAMINATION: Cervical spine series two-view: [facility] 11:52:00-00:00 DISCUSSION: There is grade 1 (4 mm) anterior listhesis of C5-C6 with 2 mm retrolisthesis of C3-C4. Moderate mid cervical degenerative changes are noted. No definite fractures or dislocations are seen. U nfortunately, not all of the images from outside CT of 07/22/2016 are available. The MRI from the and is also incomplete showing possible left C5 pedicle edema and slight edema/endplate changes involvin g the C7 vertebral body with moderate fluid/edema in the posterior paravertebral musculature. There is no significant vertebral height loss as a result. Moderate mid cervical degenerative changes. The p revertebral soft tissues are normal. If clinical concern persists consider further evaluation with CT or MRI of the cervical spine. IMPRESSION: Moderate mid cer vical degenerative changes with multilevel listhesis. If there is clinical concern for instability, consider flexion- extension views. Prior exams for comparison a re incomplete with T2 hyperintensity involving the left C5 pedicle and slightly the endplates of C7. This may be secondary to type I degenerative change, although minimal C7 fracture is difficult to exclude. Correlate with prior CT.
[2023-05-14 08:03] LABS: Absolute Lymphocytes (CBC) 1.4 K/uL (0.7-4.9); Hematocrit 38.9 % (39.6-49.0); Lymphocytes % 14.9 % (15.3-44.8); MCV 100.5 fL (80-100); MPV 7.9 fL (7.6-11.3); RBC Red Blood Cell Count 3.87 M/uL (4.33-5.43)
[2023-05-14 08:16] LABS: Potassium 4.3 mEq/L (3.5-5.1)
[2023-05-14 11:06] VITALS: BMI 20.1
[2023-05-14] MEDS ORDERED: ONDANSETRON 4 MG/2 ML VIAL IV PRN (11:09)
[2023-05-14] MEDS: D5 0.9 NS 1,000 ML IV SCH (11:50)
--- NOTE | 2023-05-14 11:59 | P.HP ---
Certification for Inpatient Patient admitted to: Observation With expected LOS: <2 Midnights Practitioner: I am a practitioner with admitting privileges, knowledge of patient current condition, hospital course, and medical plan of care. Services: Services provided to patient in accordance with Admission requirements found in Title 42 Section 412.3 of the Code of Federal Regulations Patient History Date of Service: 05/14/23 Reason for admission: Dislodged PEG tube History of Present Illness: 87-year-old gentleman with a history of oropharyngeal dysphagia and prostate cancer was brought to the emergency department because his PEG tube dislodged accidentally while he was wearing his shirt. Patient is strictly n.p.o. He denies any diarrhea or constipation or nausea or vomiting or abdominal pain. General surgery Dr. Luther was contacted for PEG tube placement. Patient is hospitalized for further management. Allergies iodine [Iodine] Allergy (Intermediate, Verified 02/14/23 23:14) Hives iv contrast Allergy (Uncoded 09/20/18 11:27) Unknown Home Medications: Aspirin [Adult Low Dose Aspirin EC] 81 mg FT DAILY 09/21/16 Finasteride [Proscar*] 5 mg PO DAILY 09/21/16 Levothyroxine [Synthroid*] 100 mcg PO [id number] 09/21/16 Acetaminophen [Tylenol Extra Strength] 500 mg FT Q6HP PRN 02/14/23 Tramadol HCl [Ultram] 50 mg FT Q6HP PRN 02/14/23 Budesonide/Formoterol Fumarate [Symbicort 160-4.5 Mcg Inhaler] 2 puff IH BID 05/14/23 Cetirizine HCl [Zyrtec] 10 mg FT DAILY 05/14/23 Famotidine [Pepcid AC] 10 mg FT DAILY 05/14/23 - Past Medical/Surgical History Has patient received pneumonia vaccine in the past: Yes Diabetic: No -: bph -: hypertension -: hypothyroidism -: prostate cancer -: copd -: osteoporosis -: dementia -: hydrocelectomy -: tonsillectomy -: PEG Psychosocial/ Personal History: Patient is . - Family History Mother -: Cancer Father -: Heart disease - Social History Smoking Status: Never smoker Alcohol use: No CD- Drugs: No Caffeine use: No Place of Residence: Home Review of Systems Other: Except as documented, all other systems reviewed and negative. Physical Examination - Vital Signs Temperature: 98.3 F Blood Pressure: 115/58 Pulse: 68 Respirations: 16 - Physical Exam General: Alert, In no apparent distress, Oriented x3 HEENT: PERRLA, Mucous membr. moist/pink, EOMI, Sclerae nonicteric Neck: Supple, JVD not distended Respiratory: Clear to auscultation bilaterally, Normal air movement Cardiovascular: No edema, Regular rate/rhythm, Normal S1 S2 Gastrointestinal: Normal bowel sounds, Soft and benign, Non-distended, Other (PEG tube stoma is clean.) Musculoskeletal: No swelling Integumentary: No rashes, No cyanosis Neurological: Normal speech, Other (No focal motor deficit) Lymphatics: No axilla or inguinal lymphadenopathy - Studies Laboratory Data (last 24 hrs) 05/14/23 05/14/23 07:50 07:50 WBC 9.60 Hgb 12.9 L Hct 38.9 L Plt Count 355 Sodium 141 Potassium 4.3 BUN 26 H Creatinine 0.84 Glucose 99 Assessment and Plan - Problems (Diagnosis) (1) PEG tube dislodgement Current Visit: Yes Status: Acute (2) Dysphagia Current Visit: No Status: Chronic Qualifiers: Dysphagia type: unspecified Qualified Code(s): R13.10 - Dysphagia, unspecified (3) HTN (hypertension) Current Visit: No Status: Chronic Qualifiers: Hypertension type: primary hypertension Qualified Code(s): I10 - Essential (primary) hypertension (4) Hypothyroidism Current Visit: No Status: Chronic Qualifiers: Hypothyroidism type: unspecified Qualified Code(s): E03.9 - Hypothyroidism, unspecified - Plan Place under observation on the medical floor. General surgery Dr. Ryder consulted to evaluate for PEG tube placement. IV fluid maintenance for the meantime. Strict n.p.o. Hold oral medications due to strict n.p.o. status. Monitor and correct electrolytes as needed.
--- NOTE | 2023-05-14 14:15 | CON ---
Date of Consultation: 05/14/2023 Brief History Of Present Illness: The patient is an 87-year-old male with a history of oropharyngeal dysphagia and prostate cancer, who was brought to the emergency department because of PEG tube was d islodged earlier in the day. He had this PEG tube since September; however, the PEG tube was noted to be dislodged as of this morning. He had received nutrition as of this morning as well just prior to the PEG tube dislodgement. He presents to the ER where Dr. Kim attempted to replace it; however, t he tract appeared to be close and he was unable to pass the feeding tube at this time and as such, I am consulted for replacement of the PEG tube. Past Medical History: Significant for BPH, hypertension, hypothyroidism, prostate cancer, oropharyng eal dysphagia, osteoporosis, dementia. Past Surgical History: Hydrocelectomy, tonsillectomy, and PEG tube placement September, this last yea r in 2021. Family History: Significant for cancer in his mother and heart disease in the father. Social History: The patient is . Negative history for smoking alcohol or recreational drug u se. Review of Systems: Ten-point review of systems otherwise negative. Physical Examination: Vital Signs: At the time of my examination; his blood pressure was 115/58, pulse 68, respiratory rat e 16, temperature 98.3, SpO2 98% on room air. General: He is awake and alert. He is conversive. He seems oriented during our discussion; however , he does have some slow mentation. Caregiver is present at the bedside and I have spoken to his wif e on the phone regarding some of the information obtained from the chart as well as I spoke to Dr. Praveen cason. Psychiatric: As described, he is appropriate and conversive with slow mentation. HEENT: Otherwise normocephalic. Sclerae anicteric. Mucous membranes moist. Oropharynx clear. Neck: Supple without JVD. Chest: Normal expansion and excursion. Cardiovascular: Regular rate and rhythm. Pulmonary: Clear to auscultation bilaterally. Abdomen: Soft, nontender, nondistended. No rebound or guarding. No focal peritonitis. A PEG tube site is noted in the left abdomen. It appears to be fairly closed and somewhat retracted. I am unab le to find a tract in this area as well. It appears to have collapsed at this point. Extremities: No clubbing or edema. Skin: Warm and dry. Laboratory Data: Revealed a white blood cell count of 9.6, hemoglobin is 12.9, hematocrit 38.9, plat elet count is 355, neutrophils were 71%. His sodium 141, potassium 4.3, chloride 109, carbon dioxide 29, BUN 26, creatinine 0.8, glucose is 99. Assessment And Plan: This is an 87-year-old man, who comes in with dislodgement of his PEG tube and in need of replacement of his PEG tube. 1.Continue IV fluid hydration. 2.Continue medical management. 3.I have explained the risks, benefits, and alternatives of PEG tube placement including, but not li mited to bleeding, infection, damage to surrounding tissues, need for further operation and procedure s, inability to place a tube, injury to colon, small bowel or other intestinal injuries requiring jannette gical intervention. The patient and his agreed to proceed as indicated. Thank you for this interesting consult. CHLOE/TEODORA Voice ID: [id number] Report ID: [id number]
[2023-05-14] MEDS ORDERED: KETOROLAC 30 MG/ML INJ IV ONE (20:04)
[2023-05-14] MEDS ORDERED: LORazepam 2 MG/ML VIAL IV ONE (20:06)
[2023-05-15 04:03] LABS: Absolute Lymphocytes (CBC) 1.7 K/uL (0.7-4.9); Hematocrit 36.4 % (39.6-49.0); Lymphocytes % 21.6 % (15.3-44.8); MPV 8.9 fL (7.6-11.3); RBC Red Blood Cell Count 3.64 M/uL (4.33-5.43)
[2023-05-15 04:04] LABS: Magnesium 2.2 mg/dL (1.6-2.4); Phosphorus 2.9 mg/dL (2.5-4.9); Potassium 3.7 mEq/L (3.5-5.1)
[2023-05-15] MEDS: D5 0.9 NS 1,000 ML IV SCH (05:36)
[2023-05-15] MEDS ORDERED: KCL 20 MEQ/100 mL IVPB 20 MEQ/100 ML BAG IV SCH (09:00)
[2023-05-15 11:18] LABS: Thyroid Stimulating Hormone 6.08 uIU/mL (0.358-3.740)
[2023-05-15] MEDS ORDERED: Ringers Lactate 1,000 ML IV ONE (15:18)
[2023-05-15] MEDS ORDERED: CEFAZOLIN SODIUM 1 GM/VIAL ONE (15:31)
[2023-05-15] MEDS ORDERED: propofoL 200 MG/20 ML VIAL IV ONE ×2 (15:40→15:44)
[2023-05-15] MEDS ORDERED: Phenylephrine HCl 10 MG/ML 1 ML VIAL ONE (15:40)
[2023-05-15] MEDS ORDERED: EPHEDRINE SULF 50 MG/ML VIAL ONE (15:40)
[2023-05-15] MEDS ORDERED: NS 0.9% VIAL 20 ML ONE (15:40)
--- NOTE | 2023-05-15 16:40 | P.PN ---
Subjective Date of Service: 05/15/23 Chief Complaint: Dislodged PEG tube Patient has no new complaint. No issues overnight. Physical Examination - Vital Signs Temperature: 97.9 F Blood Pressure: 143/61 Pulse: 50 Respirations: 17 Pulse Ox (%): 98 - Physical Exam General: Alert, In no apparent distress, Oriented x3 HEENT: Mucous membr. moist/pink Neck: JVD not distended Respiratory: Clear to auscultation bilaterally, Normal air movement Cardiovascular: No edema, Regular rate/rhythm Gastrointestinal: Soft and benign, Non-distended Musculoskeletal: No swelling Integumentary: No cyanosis Neurological: Normal strength at 5/5 x4 extr Assessment And Plan - Current Problems (Diagnosis) (1) PEG tube dislodgement Current Visit: Yes Status: Acute (2) Dysphagia Current Visit: No Status: Chronic Qualifiers: Dysphagia type: unspecified Qualified Code(s): R13.10 - Dysphagia, unspecified (3) HTN (hypertension) Current Visit: No Status: Chronic Qualifiers: Hypertension type: primary hypertension Qualified Code(s): I10 - Essential (primary) hypertension (4) Hypothyroidism Current Visit: No Status: Chronic Qualifiers: Hypothyroidism type: unspecified Qualified Code(s): E03.9 - Hypothyroidism, unspecified - Plan General surgery Dr. Ryder attempted PEG tube placement. According to Dr. 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 He tried using the pediatric scope but it broke. Dr. Ryder rescheduled the PEG tube placement for tomorrow pending scope replacement. Family want to wait and get the PEG tube placed here. Continue IV fluid maintenance Strict n.p.o. Hold oral medications due to strict n.p.o. status. Monitor and correct electrolytes as needed.
[2023-05-15] MEDS: MORPHINE 2 MG/ML SYR IV PRN ×2 (17:13→21:04)
--- NOTE | 2023-05-15 17:16 | P.OP ---
Preoperative diagnosis: Need for Enteral Access / Dislodged PEG Tube Postoperative diagnosis: Need for Enteral Access / Dislodged PEG Tube Primary procedure: Attempted EGD / PEG - Failed Anesthesia: MAC Estimated blood loss: 0 Specimen: none Findings: Unable to complete procedure Complications: None Transferred to: Recovery Room Condition: Good
--- NOTE | 2023-05-15 17:18 | P.OP ---
Date of Service: 05/15/23 Findings and Operative Technique An attempt was made to place a percutaneous endoscopic gastrostomy tube inpatient. This was unsuccessful however. Patient was brought to the operating room prepped and draped in the usual sterile fashion after adequate anesthesia was achieved an attempt was made to pass a standard adult endoscope/EGD scope into the oropharynx which passed without issue however the endoscope visualized the esophagus but there was a tight stricture in this vicinity and the patient had an area of narrowing which was impossible to traverse with the standard endoscope due to its relative small size and stricture. This was approximately 12 cm from the incisors. I attempted to remove the standard EGD scope and the pediatric endoscope which was a significantly smaller caliber was attached hooked up and passed in the oropharynx however upon passing it to the oropharynx and the endoscope had a te chnical failure with loss of visualization. The visualization could not be recovered on multiple attempts and troubleshooting was unsuccessful and as such the procedure was abandoned without passing the endoscope beyond the upper oropharynx. As such the patient did not undergo endoscopy other than to the proximal oropharynx. Had no immediate complications. Tolerated anesthesia well without incident or complication. Plan will be to attempt repair or replacement of the endoscope and reattempt with pediatric endoscopy EGD scope on next attempt.
[2023-05-16] MEDS ORDERED: KETOROLAC 30 MG/ML INJ IV ONE (00:03)
[2023-05-16 03:58] LABS: Absolute Lymphocytes (CBC) 1.5 K/uL (0.7-4.9); Hematocrit 34.2 % (39.6-49.0); MCV 100.2 fL (80-100); MPV 8.7 fL (7.6-11.3); RBC Red Blood Cell Count 3.41 M/uL (4.33-5.43)
[2023-05-16 03:59] LABS: Potassium 3.6 mEq/L (3.5-5.1)
[2023-05-16] MEDS: D5 0.9 NS 1,000 ML IV SCH (04:22)
[2023-05-16] MEDS ORDERED: KCL 20 MEQ/100 mL IVPB 20 MEQ/100 ML BAG IV SCH (06:00)
--- NOTE | 2023-05-16 06:50 | P.PN ---
Date of Service: 05/16/23 Subjective: doing okay no acute events overnight PEG tube placement unsuccessful yesterday d/t scope being broken; tentatively rescheduled for today ROS: 10 point ROS as noted above, otherwise negative Physical Exam: GEN: Alert, oriented, NAD HEENT: Normal conjunctiva, sclera anicteric CV: Regular rate and rhythm, no edema Pulm: Nonlabored respirations on room air ABD: Soft, nontender, nondistended Neuro: Normal speech, normal affect vitals reviewed Problem List: PEG tube dislodgement Dysphagia Hypertension Hypothyroidism General surgery consulted Dr. Ryder attempted PEG tube placement 05/15. 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 He tried using the pediatric scope but it broke. NPO for tentative EGD / PEG tube placement today cont IV fluids while NPO PRN pain medication PT/OT consulted. Family concerned patient will become more weak while waiting for peg placement. Code: Full Dispo: Home Pending PEG tube placement
[2023-05-16] MEDS ORDERED: KETOROLAC 30 MG/ML INJ IV PRN (18:50)
[2023-05-17] MEDS: D5 0.9 NS 1,000 ML IV SCH (01:16)
[2023-05-17 03:22] LABS: Potassium 4.5 mEq/L (3.5-5.1)
[2023-05-17] MEDS ORDERED: Ringers Lactate 1,000 ML IV ONE (07:12)
[2023-05-17] MEDS ORDERED: CEFAZOLIN SODIUM 1 GM/VIAL ONE (07:35)
[2023-05-17] MEDS ORDERED: propofoL 200 MG/20 ML VIAL IV ONE ×2 (07:39→08:35)
[2023-05-17] MEDS ORDERED: LIDOCAINE 1% MPF 5 ML VIAL ONE (07:39)
[2023-05-17] MEDS ORDERED: SODIUM CHLORIDE 0.9% 10ML INJ IV PRN (09:04)
[2023-05-17 09:10] VITALS: O2SAT 100
[2023-05-17] MEDS: PANTOPRAZOLE 40 MG INJ IVP SCH (09:22)
--- NOTE | 2023-05-17 11:13 | P.PN ---
Date of Service: 05/17/23 Subjective: doing well underwent PEG tube placement this morning no new/worsening symptoms ROS: 10 point ROS as noted above, otherwise negative Physical Exam: GEN: Alert, oriented, NAD, PEG tube in place HEENT: Normal conjunctiva, sclera anicteric CV: Regular rate and rhythm, no edema Pulm: Nonlabored respirations on room air ABD: Soft, nontender, nondistended Neuro: Normal speech, normal affect PEG tube in place vitals reviewed Problem List: PEG tube dislodgement, now s/p PEG replacement / Gastritis Dysphagia Hypertension Hypothyroidism remote h/o afib General surgery consulted Dr. Ryder attempted PEG tube placement 05/15. 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 He tried using the pediatric scope but it was not functioning properly s/p successful PEG replacement 05/17 erosive Gastritis noted during procedure; no ulcerations Started protonix / Resume tube feeds this evening, monitor overnight PRN pain medication PT/OT consulted. Family concerned patient will become more weak while waiting for peg placement. Code: Full Dispo: Home tomorrow
[2023-05-17] MEDS: TRAMADOL HCL 50 MG TAB FT PRN (19:39)
[2023-05-18] MEDS: TRAMADOL HCL 50 MG TAB FT PRN (01:45)
[2023-05-18] MEDS ORDERED: ACETAMINOPHEN 500 MG TAB FT PRN (06:48)
--- NOTE | 2023-05-18 08:10 | P.DS ---
Admission Date: 05/14/23 Discharge Date: 05/18/23 Disposition: DC HOME/HOME HEALTH CARE Discharge Condition: GOOD Reason for Admission: Dislodged PEG tube Consultations: General Surgery - Dr. Ryder Brief History of Present Illness: 87yo M, PMH: oropharyngeal dysphagia and prostate cancer Patient was brought to the emergency department because his PEG tube dislodged accidentally while he was wearing his shirt. Patient is strictly n.p.o. He denies any diarrhea or constipation or nausea or vomiting or abdominal pain. General surgery Dr. Ryder was contacted for PEG tube placement. Patient is hospitalized for further management. Hospital Course: Problem List: PEG tube dislodgement, now s/p PEG replacement 05/17 Gastritis Dysphagia Hypertension Hypothyroidism remote h/o afib Patient presented with a PEG tube dislodgement. General surgery was consulted. Dr. Ryder attempted a PEG tube placement on 05/15. 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 An attempt was made using the pediatric scope but was unsuccessful secondary to equipment failure. Dr. Ryder successfully placed PEG tube on 05/17 after obtaining functional equipment. Patient was monitored throughout the day and overnight and deemed stable for discharge. During PEG replacement, patient was noted to have erosive gastritis. He was started on PPI therapy and discharged with new prescription for PPI. Recommended to avoid NSAIDs. 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 Advised to follow up with his Budget Technician to have further discussion regarding continuation of this vs changing medication. New Medications on discharge: esomeprazole 40mg daily Continue home medications as previously scribed Follow up: Dr. Ryder as previously discussed PCP within 1 week Cardiology in next few weeks Physical Exam: GEN: Alert, oriented, NAD HEENT: Normal conjunctiva, sclera anicteric CV: Regular rate and rhythm, no edema Pulm: Nonlabored respirations on room air ABD: Soft, nontender, nondistendedm, PEG tube placed Neuro: Normal speech, normal affect Vital Signs/Physical Exam: Temp Pulse Resp BP Pulse Ox 98.1 F 60 15 117/54 L 96 05/18/23 04:00 05/18/23 04:00 05/18/23 04:00 05/18/23 04:00 05/18/23 04:00 Laboratory Data at Discharge: WBC 8.50 thou/uL (4.3-10.9) 05/16/23 02:36 Hgb 11.4 g/dL (13.6-17.9) L 05/16/23 02:36 Hct 34.2 % (39.6-49.0) L 05/16/23 02:36 Plt Count 272 thou/uL (152-406) 05/16/23 02:36 Sodium 148 mEq/L (136-145) H 05/17/23 02:54 Potassium 4.5 mEq/L (3.5-5.1) D 05/17/23 02:54 BUN 18 mg/dL (7-18) 05/17/23 02:54 Creatinine 0.66 mg/dL (0.70-1.30) L 05/17/23 02:54 Glucose 82 mg/dL (74-106) 05/17/23 02:54 Phosphorus 2.9 mg/dL (2.5-4.9) 05/15/23 02:32 Magnesium 2.2 mg/dL (1.6-2.4) 05/15/23 02:32 Home Medications: Aspirin [Adult Low Dose Aspirin EC] 81 mg FT DAILY 09/21/16 Finasteride [Proscar*] 5 mg PO DAILY 09/21/16 Levothyroxine [Synthroid*] 100 mcg PO [id number] 09/21/16 Acetaminophen [Tylenol Extra Strength] 500 mg FT Q6HP PRN 02/14/23 Tramadol HCl [Ultram] 50 mg FT Q6HP PRN 02/14/23 Budesonide/Formoterol Fumarate [Symbicort 160-4.5 Mcg Inhaler] 2 puff IH BID 05/14/23 Cetirizine HCl [Zyrtec] 10 mg FT DAILY 05/14/23 Esomeprazole Magnesium 40 mg FT DAILY 30 Days #30 cap 05/18/23 New Medications: Esomeprazole Magnesium 40 mg FT DAILY 30 Days #30 cap Physician Discharge Instructions: Patient presented with a PEG tube dislodgement. General surgery was consulted. Dr. Ryder attempted a PEG tube placement on 05/15. 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 An attempt was made using the pediatric scope but was unsuccessful secondary to equipment failure. Dr. Ryder successfully placed PEG tube on 05/17 after obtaining functional equipment. Patient was monitored throughout the day and overnight and deemed stable for discharge. During PEG replacement, patient was noted to have erosive gastritis. He was started on PPI therapy and discharged with new prescription for PPI. Recommended to avoid NSAIDs. 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 Advised to follow up with his Budget Technician to have further discussion regarding continuation of this vs changing medication. New Medications on discharge: esomeprazole 40mg daily Continue home medications as previously scribed Follow up: Dr. Ryder as previously discussed PCP within 1 week Cardiology in next few weeks Followup: Unknown,U [Primary Care Provider] - Time spent managing pt's care (in minutes): 45
[2023-05-18] MEDS ORDERED: FINASTERIDE 5 MG TAB FT SCH (09:00)
[2023-05-18 09:09] VITALS: BP 126/89; TEMP 98.5
[2023-05-18] MEDS: PANTOPRAZOLE 40 MG INJ IVP SCH (09:26)
[2023-05-19] MEDS ORDERED: LEVOTHYROXINE SOD 0.1 MG TAB FT SCH (06:45)
== END 2023-05-18 11:30 | disposition home health service (06) ==
LOC: ER 07:24 → ERHOLD 09:29 → 2ND 10:35
PROVIDERS: ADMIT Internal Medicine; ATTEND Hospitalist
PROC: 0DH67UZ Insertion of Feeding Device into Stomach, Via Natural or Artificial Opening (ICD-10-PCS; principal; 2023-05-15 17:00)
PROC: 0DH68UZ Insertion of Feeding Device into Stomach, Via Natural or Artificial Opening Endoscopic (ICD-10-PCS; 2023-05-17)
DX: Z43.1 Encounter for attention to gastrostomy (principal); R13.10 Dysphagia, unspecified; I10 Essential (primary) hypertension; E03.9 Hypothyroidism, unspecified; C61 Malignant neoplasm of prostate; K29.70 Gastritis, unspecified, without bleeding; K22.2 Esophageal obstruction; K29.80 Duodenitis without bleeding
CPT/HCPCS: 85025 ×3; 80048 ×4; 36415 ×2; 83735; 84100; 84443; 84439; 97116; 97161; 99285; 43762; 43246; J3480; A4216; J2704 ×4; J2001; J2371; C9113 ×2; J2270 ×2; J7042 ×4; J7120 ×2; J0690 ×2